=== PATIENT | female | born 1945 | race Caucasian/White ===

== ENCOUNTER 2025-01-31 06:26 | Inpatient (IN) ==
--- OUTSIDE RECORDS SUMMARY | 2025-01-31 06:32 | External Medical Summary | Summary of Care ---
Author Name Unknown Organization [facility] Address [address] [place] [address] Phone [phone] Care Team Providers Care General Counsel Name Role Phone Kia Goetz MD Primary Care Provider [phone] Reason for Visit * Reason Onset Date Comments Medication Refill 01/12/2025 Encounter Details Date Type Department Care Team (Late st Contact Info) Description 01/12/2025 Refill General Internal Medicine [facility] [place] [address] [facility] [place] [address] Kia Goetz MD [address] [place] [address] Adjustment disorder with mixed anxiety and depressed mood; Grief reaction; Neovascular glaucoma of both eyes, severe stage Allergies Active Allergy Reactions Criticality Noted Date Comments Mometasone Furoate 01/08/2022 Blisters sides of mouth Duloxetine Hcl Low 10/08/2021 Not allergic, just doesn't work Levofloxacin High 10/08/2021 Becomes deathly ill documented as of this encounter (statuses as of 01/23/2025) Medications ZyrTEC Allergy 10 MG Oral Capsule (Cetirizine HCl) Take 1 Capsule by mouth in the morning. Active Famotidine 20 MG Oral Tablet (Pepcid) Take 1 Tablet by mouth 2 times a day as needed for Heartburn. -uses 2/wk 021 Active Acetaminophen 500 MG Oral Tablet (Tylenol)Indicati ons:Headache, unspecified headache type Take by mouth 2 Tablets as needed in the morning AND 2 Tablets as needed at noon AND 2 Tablets as needed in the evening (headache). 100 Tablet 022 Active Nitroglycerin 0.4 MG Sublingual Tablet Sublingual (Nitrostat)Indica tions:Coronary artery disease involving holy cross coronary artery of holy cross heart without angina pectoris Place 1 Tablet under the tongue as needed for Pain, Chest. May repeat 3 times. If chest pain continues, call 911. 25 Tablet 023 Active Additional Information Patient not taking.Reported on 01/20/2025 Vitamin D-3 25 MCG (1000 UT) Oral CapsuleIndication s:Longitudinal ridging of nail,Vitamin D insufficiency 1 capsule daily--inc 02/10/2024 024 Active Metoprolol Succinate ER 25 MG Oral Tablet Extended Release 24 Hour (toPROL XL)Indications:Co ronary artery disease involving holy cross coronary artery of holy cross heart without angina pectoris TAKE 1 TABLET BY MOUTH EVERY DAY IN THE MORNING 90 Tablet 3 024 Active Atorvastatin Calcium 40 MG Oral Tablet (Lipitor)Indicati ons:Coronary artery disease involving holy cross coronary artery of holy cross heart without angina pectoris,Dyslipid emia, goal LDL below 70 TAKE 1 TABLET BY MOUTH EVERY DAY IN THE MORNING 90 Tablet 3 024 Active Dorzolamide HCl-Timolol Mal 2-0.5 % Ophthalmic Solution (Cosopt Ocumeter Plus) INSTILL 1 DROP INTO THE RIGHT EYE 2 TIMES PER DAY 025 Active Nicotine 21 MG/24HR Transdermal Patch 24 Hour (Nicoderm CQ)Indications:Sy mptomatic carotid artery narrowing without infarction, right,Tobacco use disorder,Coronary artery disease involving holy cross coronary artery of holy cross heart without angina pectoris,Hx of CABG Place 1 Patch over 24 hours topically on the skin in the morning. On upper body/upper arm, change once a day for 6 weeks.. 42 Patch 025 Active Ezetimibe 10 MG Oral Tablet (Zetia)Indication s:Coronary artery disease involving holy cross coronary artery of holy cross heart without angina pectoris,Dyslipid emia, goal LDL below 70 TAKE 1 TABLET BY MOUTH EVERY DAY IN THE MORNING 90 Tablet 3 025 Active Clopidogrel Bisulfate 75 MG Oral Tablet (pLAVix) Take 1 Tablet by mouth in the morning. 90 Tablet 5 025 Active LORazepam 0.5 MG Oral Tablet (Ativan)Indicatio ns:SIXTO (generalized anxiety disorder),Symptom atic carotid artery narrowing without infarction, right,S/P carotid endarterectomy TAKE 1/2 TAB BY MOUTH IN THE MORNING AND EVENING FOR ANXIETY 30 Tablet 025 Active Albuterol Sulfate HFA 108 (90 Base) MCG/ACT Inhalation Aerosol SolutionIndicatio ns:Neovascular glaucoma of both eyes, severe stage,COPD, group A, by GOLD 2017 classification ([facility]),Tobacco use disorder Inhale 2 Puffs by mouth every 4 hours as needed for Wheezing. 18 g 1 025 Active Aspirin 325 MG Oral TabletIndications :Coronary artery disease involving holy cross coronary artery of holy cross heart without angina pectoris,Hx of CABG,S/P carotid endarterectomy Take 1 Tablet by mouth in the morning. 1 Tablet 022 2024 Discontinued Butalbital-Acetam inophen 50-325 MG Oral TabletIndications :Lumbar degenerative disc disease,Chronic neck and back pain Take 1 Tablet by mouth daily as needed for Pain, Moderate or Pain, Severe (neck pain). 30 Tablet 024 2024 Discontinued Trelegy Ellipta 100-62.5-25 MCG/ACT Aerosol Powder Breath ActivatedIndicati ons:Tobacco use disorder,COPD, group A, by GOLD 2017 classification ([facility]),Abnormal lung sounds INHALE 1 PUFF BY MOUTH IN THE MORNING. -FROM 08/11/2023. 60 Each 5 024 2024 Discontinued(P atient preference/dis continuation) Nicotine 14 MG/24HR Transdermal Patch 24 Hour (Nicoderm CQ)Indications:Oc ular ischemic syndrome,Symptoma tic carotid artery narrowing without infarction, right,Tobacco use disorder,Coronary artery disease involving holy cross coronary artery of holy cross heart without angina pectoris,Hx of CABG Place 1 Patch over 24 hours topically on the skin in the morning. On upper body/outer arm, change once a day for two weeks.. 14 Patch 025 2024 Discontinued(P atient preference/dis continuation) Nicotine 7 MG/24HR Transdermal Patch 24 Hour (Nicoderm CQ)Indications:Sy mptomatic carotid artery narrowing without infarction, right,Tobacco use disorder,Coronary artery disease involving holy cross coronary artery of holy cross heart without angina pectoris,Hx of CABG Place 1 Patch over 24 hours topically on the skin in the morning. On upper body/outer arm, change once a day for two weeks.. 14 Patch 025 2024 Discontinued(P atient preference/dis continuation) Sertraline HCl 50 MG Oral Tablet (Zoloft)Indicatio ns:Adjustment disorder with mixed anxiety and depressed mood,Grief reaction,Neovascu lar glaucoma of both eyes, severe stage Half tablet daily for 8 days then 1 tablet daily with breakfast -st 12/19/2024 30 Tablet 2 025 2024 Discontinued(P atient preference/dis continuation) Hospital, Clinic, or Other Facility Administered Medication Ordered Dose Route Frequency Start Date End Date Status bevaCIZumab (Avastin) inj 1.25 mgIndications:Ocular ischemic syndrome,Retinal neovascularization of right eye 1.25 mg IZ PRN 12/06/2024 12/06/2025 Active ROPivacaine (Naropin) inj 1.5 mgIndications:Ocular ischemic syndrome,Retinal neovascularization of right eye 1.5 mg IJ PRN 12/06/2024 12/06/2025 Active documented as of this encounter (statuses as of 01/23/2025) Active Problems Problem Noted Date Diagnosed Date Idiopathic hypotension 01/21/2025 Neovascular glaucoma of both eyes, severe stage 12/19/2024 Ocular ischemic syndrome 12/16/2024 Symptomatic stenosis of both carotid arteries without infarction 08/11/2024 HTN, goal below 140/80 08/11/2024 Carotid artery aneurysm 05/19/2024 COPD, group A, by GOLD 2017 classification 12/30 Overview: Per COPD GOLD Classification Occlusion of left subclavian artery 01/08/2022 Overview (01/08/2022): All BP to be in RT arm Coronary artery disease invo lving holy cross coronary artery of holy cross heart without angina pectoris 10/08/2021 Hx of CABG 10/08/2021 Overview (10/08/2021): 2015 PVD (peripheral vascular disease) with claudicat ion 10/08/2021 History of right-sided carotid endarterectomy Overview (10/08/2021): Rt 2016 Tobacco use disorder 10/08/2021 Lumbar degenerative disc disease 10/08/2021 History of lumbar laminectomy 10/08/2021 Overview (10/08/2021): 12/2014 in [place] Dyslipidemia, goal LDL below 70 10/08/2021 Seasonal allergic rhinitis due to pollen 021 Adjustment disorder with mixed anxiety and depre ssed mood 10/08/2021 Prediabetes 10/08/2021 SIXTO (generalized anxiety disorder) 10/08/2021 Ocular migraine 10/08/2021 documented as of this encounter (statuses as of 01/23/2025) Resolved Problems Problem Noted Date Diagnosed Date Resolved Date Caregiver stress 06/22/2024 12/13/2024 Symptomatic stenosis of righ t carotid artery without infarction 05/19/2024 01/21/2025 Bilateral carotid artery stenosis 10/22/2021 08/11/2023 COPD, severity to be determined 10/08/2021 01/01/2023 Overview: Per COPD GOLD Classification documented as of this encounter (statuses as of 01/23/2025) Immunizations Name Administration Dates Next Due COVID-19 mRNA, LNP-s, No Pre serve, 2-Dose Series (Moderna) 01/23/2021,12/28/2020 Pneumococcal Conjugate Vacci ne, 20-valent ([id number]) 09/02/2022 Pneumococcal Polysaccharide PPV23 (Pneumovax) 09/01/2017 Seasonal Influenza, High Dos e, Trivalent, PF, IM (Fluzone HD) 09/01/2017 Seasonal Influenza, Quadriva lent Hd (Fluzone Hd) 08/11/2023,09/02/2022,10/08/2021 documented as of this encounter Social History Tobacco Use Types Packs/Day Years Used Date Smoking Tobacco: Every Day Cigarettes 2 58 Smokeless Tobacco: Former Comments:12/16/24 smokes 10 cigs a day declined pamphlet Alcohol Use Standard Drinks/Week Comments Never 0 (1 standard drink = 0.6 oz pur e alcohol) PHQ-2 Answer Date Recorded PHQ Adult Total Score 0 08/11/2023 Personal Safety Answer Date Recorded Do you feel unsafe or have concerns for your saf ety? No 01/20/2025 Do you have concerns for you r family's safety? (Household - for ages 0-17 years) Not on file 01/20/2025 Utilities Answer Date Recorded Do you have trouble paying y our heating, water, or electric bill? No 01/20/2025 Is your family able to pay t he heat, water, or electric bill? (Household - for ages 0-17 years) Not on file 01/20/2025 Does your family have access to good internet? (Household - for ages 0-17 years) Not on file 01/20/2025 Transportation Needs Answer Date Record ed Do you have trouble getting a ride to medical visits or work? (Adult - for ages 18 years and over) Not on file 01/20/2025 Does your family have a hard time getting a ride to doctors visits? (Household - for ages 0-17 years) Not on file 01/20/2025 Has lack of transportation k ept you from medical appointments, meetings, work, or from getting things needed for daily living? Check all that apply. No 01/20/2025 Do you (or your family) have trouble finding or paying for a ride (transportation)? (Household - for ages 0-17 years) Not on file 01/20/2025 Housing Stability Answer Date Recorded Do you currently live in a s helter or have no steady place to sleep at night? (Adult - for ages 18 years and over) Not on file 01/20/2025 Do you think you are at risk of becoming homeless? (Adult - for ages 18 years and over) Not on file 01/20/2025 Does your family worry about paying for your home or becoming homeless? (Household - for ages 0-17 years) Not on file 0 01/20/2025 Are you homeless or worried that you might be in the future? No 01/20/2025 Are you (or your family) rene eless or worried that you might be in the future? (Household - for ages 0-17 years) Not on file Food Insecurity Answer Date Recorded Worried About Running Out of Food in the Last Ye ar Not on file 01/20/2025 Ran Out of Food in the Last Year Not on file 01/20/2025 Do you need food for this week? No 01/20/2025 Comments No Sex and Gender Information Value Date Recorded Sex Assigned at Not on file Legal Sex Female 1:53 PM EST Gender Identity Not on file Sexual Orientation Not on file documented as of this encounter Miscellaneous Notes * Telephone Encounter - Kia Goetz MD - 01/12/2025 1:57 PM EDTRefused Prescriptions: Disp Refills Sertraline HCl 50 MG Oral Tablet (Zoloft) 30 Tab*2 Sig: Half tablet daily for 8 days then 1 tablet daily with breakfast -12/19/2024 Refused By: KIA GOETZ Reason for Refusal: Other (comment below) * Telephone Encounter - Marilu Barry CMA - 01/12/2025 1:54 PM EDTPending Prescriptions: Disp Refills Sertraline HCl 50 MG Oral Tablet (Zoloft) 30 Tab*2 Sig: Half tablet daily for 8 days then 1 tablet daily with breakfast -12/19/2024 * Telephone Encounter - Marilu Barry CMA - 01/12/2025 1:54 PM EDT Did you pend patient's preferred pharmacy and medication before forwarding?yes Pharmacy: [id number] [address] [place] [address] Pending Prescriptions: Disp Refills Sertraline HCl 50 MG Oral Tablet (Zoloft) 30 Tab*2 Sig: Half tablet daily for 8 days then 1 tablet daily with breakfast -st 12/19/2024 Last Visit: 12/13/2024 (in office), Visit date not found (telemedicine) Next Visit: 02/22/2025 If no future appointments scheduled, and last appointment is greater than a year ago, please schedule patient for a follow-up appointment Last date the medication was ordered: 12/19/24 Is this request for a controlled substance?No Urine Drug Screen:No results found for this or any previous visit. Patient Phone Numbers Labs: Lab Results Component Value Date/Time CREAT 0.8 08/12/2024 08:58 AM CREAT 0.91 06/20/2021 12:00 AM POTASSIUM 4.3 08/12/2024 08:58 AM POTASSIUM 5.0 06/20/2021 12:00 AM TSH 1.78 06/20/2021 12:00 AM LDL 49 08/12/2024 08:58 AM LDLCALC 58 06/20/2021 12:00 AM ALT 23 08/12/2024 08:58 AM HGBA1C 5.8 (H) 08/12/2024 08:58 AM HGBA1C 5.9 (H) 06/20/2021 12:00 AM * Telephone Encounter - Louann Bustamante OSA - 01/12/2025 1:33 PM EDT PHARMACY REQUESTING 90 DAY SUPPLY Pending Prescriptions: Disp Refills Sertraline HCl 50 MG Oral Tablet (Zoloft) 30 Tab*2 Sig: Half tablet daily for 8 days then 1 tablet daily with breakfast -st 12/19/2024 Last Visit: 12/13/2024 (in office), Visit date not found (telemedicine) Next Visit: 02/22/2025 Last date the medication was ordered: 12/19/2024 Patient Active Problem List Diagnosis Coronary artery disease involving holy cross coronary artery of holy cross heart without angina pectoris Hx of CABG PVD (peripheral vascular disease) with claudication (HCC) History of right-sided carotid endarterectomy Tobacco use disorder Lumbar degenerative disc disease History of lumbar laminectomy Dyslipidemia, goal LDL below 70 Seasonal allergic rhinitis due to pollen Adjustment disorder with mixed anxiety and depressed mood Prediabetes SIXTO (generalized anxiety disorder) Ocular migraine Occlusion of left subclavian artery COPD, group A, by GOLD 2017 classification (HCC) Symptomatic stenosis of right carotid artery without infarction Carotid artery aneurysm (HCC) Stenosis of extracranial carotid artery, right HTN, goal below 140/80 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, severe stage Labs: Lab Results Component Value Date/Time CREATININE - [facility] 0.8 08/12/2024 08:58 AM CREATININE - [facility] 0.91 06/20/2021 12:00 AM CREATININE, RANDOM URINE - [facility] 136 08/11/2023 12:50 PM Lab Results Component Value Date/Time POTASSIUM - [facility] 4.3 08/12/2024 08:58 AM POTASSIUM - [facility] 5.0 06/20/2021 12:00 AM Lab Results Component Value Date/Time TSH - [facility]IDE [facility] 1.78 06/20/2021 12:00 AM Lab Results Component Value Date/Time LDL (CALCULATED)-[facility] 58 06/20/2021 12:00 AM LDL CHOLESTEROL (CALCULATED) - [facility] 49 08/12/2024 08:58 AM LDL CHOLESTEROL (CALCULATED) - [facility] 66 08/11/2023 12:45 PM LDL CHOLESTEROL (DIRECT MEASURE) - [facility] 76 02/10/2024 12:29 PM LDL CHOLESTEROL (DIRECT MEASURE) - [facility] 90 03/06/2023 09:57 AM Lab Results Component Value Date/Time ALT - [facility] 23 08/12/2024 08:58 AM Hemoglobin AIC Results: Lab Results Component Value Date/Time HEMOGLOBIN A1C - [facility] 5.8 (H) 08/12/2024 08:58 AM HEMOGLOBIN A1C - [facility] 6.2 (H) 02/10/2024 12:29 PM HEMOGLOBIN A1C - [facility] 6.3 (H) 08/11/2023 12:45 PM documented in this encounter Plan of Treatment Upcoming Encounters Date Type Department Care Team (Late st Contact Info) Description 01/28/2025 8:30 AM EDT Imaging Vascular Lab, [facility] II 2nd Floor, [place] [address] [place] [phone] 02/09/2025 1:50 PM EDT Office Visit Vascular Surgery, [facility] [address] [place] [phone] Servando Rees MD [address] [place] [facility] [place] [address] 02/16/2025 2:15 PM EDT Office Visit Ophthalmology, [facility] [address] [place] [phone] Ryland Harrison DO [address] [place] [phone] 02/22/2025 1:00 PM EDT Office Visit General Internal Medicine [facility] [place] [address] [facility] [place] [address] Kia Goetz MD [address] [place] [address] Health Maintenance Due Date Last Done Comments DISCUSS TOBACCO CESSATION (REFER TO SMARTSET #[id number]) 1945 Depression Screening 1959 Alpha-1 Antitrypsin 1965 Hepatitis C Screening 1965 DTap/Tdap Vaccines (1 - Tdap) 1966 Zoster Vaccines (1 of 2) 1966 Lung Cancer Screening 1997 Adult Wellness Visit 2013 DXA Scan 09/04/2022 09/04/2015 COVID-19 Vaccine ( season) 2024 08/20/2021, 01/23/2021, 12/28/2020 Influenza Vaccine (FLU shot) (Season Ended) 2025 08/11/2023, 09/02/2022, 10/08/2021, Additional history exists HbA1c 08/12/2025 08/12/2024, 04/2 12/2023, 08/11/2023, Additional history exists O2 ASSESSMENT COMPLETED IN PAST YEAR FOR COPD 01/20/2026 01/20/2025 GFR 01/22/2026 01/22/2025, 04/0 01/2025, 01/20/2025, Additional history exists Albumin/Creatinine Ratio 08/11/2026 08/11/2023 Pneumococcal Vaccine: 50+ Years Completed 09/02/2022, 09/01/2017 HPV (Gardasil) Vaccine Aged Out No lo nger eligible based on patient's age to complete this topic Hepatitis B Vaccine Aged Out No longe r eligible based on patient's age to complete this topic MENINGOCOCCAL (MENACTRA/MENVEO) Aged Out No longer eligible based on patient's age to complete this topic Meningitis B Vaccine (Bexsero/Trumemba) Aged Out No longer eligible based on patient's age to complete this topic documented as of this encounter Medical Devices Implanted Type Area Business Info Consultant Device Identifier Shelf Expiration Date Model / Serial / Lot Patch Xenosure [id number] - [id number] - [id number] Implanted:Qty: 1 on 01/20/2025 by Servando Rees MD at OR [facility] [place] Left: Carotid [employer] [id number] 02/14/2030 E0.8P8 / [id number] / [id number] Graft Stent Balloon Expandable Endoprosthesis , 7 Mm 39 Mm 6 Fr 135 Cm Cath Heparin - [id number] Implanted:Qty: 1 on 01/20/2025 by Servando Rees MD at OR [facility] [place] Left: Carotid [employer] [id number] 05/08/2027 [id number] / [id number] / [id number] Graft Stent Balloon Expandable Endoprosthesis , 7 Mm 39 Mm 6 Fr 135 Cm Cath Heparin - [id number] Implanted:Qty: 1 on 01/20/2025 by Servando Rees MD at OR [facility] [place] Left: Carotid [employer] [id number] 12/11/2026 [id number] / [id number] / [id number] Graft Stent Balloon Expandable Endoprosthesis , 7 Mm 29 Mm 6 Fr 135 Cm Cath Heparin - [id number] Implanted:Qty: 1 on 01/20/2025 by Servando Rees MD at OR [facility] [place] Left: Carotid [employer] [id number] 07/16/2027 [id number] / [id number] / [id number] documented as of this encounter Visit Diagnoses Diagnosis Adjustment disorder with mixed anxiety and depressed mood Grief reaction Adjustment disorder with depressed mood Neovascular glaucoma of both eyes, severe stage documented in this encounter Advance Directives * Full Code (Latest Code Status on File) Date Activated Date Inactivated Comments 01/20/2025 10:42 AM 01/22/2025 1:46 PM This order re flects the patients wishes and were consensually agreed upon. Question Answer Comments Discussion of Advance Directives occurred with: Patient Care Teams General Counsel Relationship Specialty Start Date End Date Kia Gotez MD [address] [place] [address] PCP - General Internal Medicine 10/08/21 documented as of this encounter
--- OUTSIDE RECORDS SUMMARY | 2025-01-31 06:32 | External Medical Summary | Summary of Care ---
Author Name Unknown Organization [facility] Address [address] [place] [address] Phone [phone] Care Team Providers Care Bilingual Teacher Name Role Phone Kia Goetz MD Primary Care Provider [phone] Reason for Referral * Evaluate & Treat - Unlimited Visits (Within 10 days (routine)) - Authorized Specialty Diagnoses / Procedures Referred By Contact Referred To Contact Cardiovascular Medicine / Cardiology Diagnoses Coronary artery disease involving [place] coronary artery of [place] heart without angina pectoris Gabriel Soto MD [address] [place] [address] Phone: tel: fax: CARDIOLOGY [address] [address] Referral ID Status Reason Start Date Expiration Date Visits Requested Visits Authorized [id number] Authorized Specialty Services Required 01/21/[phone] Question Answer Referral Priority Within 10 days (routine) Where should this appointment be scheduled? [facility] - Cardiology, [facility] For which of the following conditions are you referring? Known CAD/CABG/Stent Comments Elevated troponin post L carotid endarterectomy. Seen by cardiology here, recommended follow up in [place], and repeating echo. Discharge Order Reason for Visit * Auth/Cert Specialty Diagnoses / Procedures Referred By Contac t Referred To Contact Diagnoses 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 Symptomatic stenosis of right carotid artery without infarction [I65.21] Ocular ischemic syndrome [H35.82] Procedures BYPASS GRFT OTHER-CAROTID THROMBOENDARECTOMY W/PATCH,NECK INCISION IR STENT PLACEMENT THORACIC CAROTID/INNOMINATE RETROGRADE CAROTID ENDARTERECTOMY CAROTID STENT WITH OPEN EXPOSURE WITH RADIOLOGIC SUPERVISION AND INTERPRETATION Servando Rees MD [address] [place] [address] Phone: tel: fax: [place] [facility] [place] [place] [address] [place] [address] Phone: tel: Referral ID Status Reason Start Date Expiration Date Visits Re quested Visits Authorized [id number] Encounter Details Date Type Department Care Team (Latest Contact Info) Description 01/20/2025 5:41 AM EDT - 01/22/2025 9:46 AM EDT Hospital Encounter [facility] 8, [facility] 8th Floor [address] [place] [address] Servando Rees MD [address] [place] [address] Various: EKG,KRAVS Discharge Disposition: Home - Self Care Allergies Active Allergy Reactions Criticality Noted Date Comments Mometasone Furoate 01/08/2022 Blisters sides of mouth Duloxetine Hcl Low 10/08/2021 Not allergic, just doesn't work Levofloxacin High 10/08/2021 Becomes deathly ill documented as of this encounter (statuses as of 01/22/2025) Medications ZyrTEC Allergy 10 MG Oral Capsule [...] Tablet Sublingual (Nitrostat)Indica tions:Coronary artery disease involving fed[place] coronary artery of fed[place] heart without angina pectoris Place 1 Tablet [...] Hour (toPROL XL)Indications:Co ronary artery disease involving fed[place] coronary artery of [place] heart without angina pectoris TAKE 1 TABLET BY MOUTH EVERY DAY IN THE MORNING 90 Tablet 3 024 Active Atorvastatin Calcium 40 MG Oral Tablet (Lipitor)Indicati ons:Coronary artery disease involving [place] coronary artery of [place] heart without angina pectoris,Dyslipid emia, goal LDL [...] infarction, right,Tobacco use disorder,Coronary artery disease involving fed[place] coronary artery of fed[place] heart without angina pectoris,Hx of CABG Place 1 Patch over 24 hours topically on the skin in the morning. On upper body/upper arm, change once a day for 6 weeks.. 42 Patch 025 Active Ezetimibe 10 MG Oral Tablet (Zetia)Indication s:Coronary artery disease involving fed[place] coronary artery of [place] heart without angina pectoris,Dyslipid emia, goal LDL [...] stage,COPD, group A, by GOLD 2017 classification ([facility]),Tobacco use disorder Inhale 2 Puffs by mouth every 4 hours as needed for Wheezing. 18 g 1 025 Active Aspirin 81 MG Oral Tablet Delayed Release Take 1 Tablet by mouth in the morning. Active oxyCODONE HCl 5 MG Oral Tablet (Oxy IR) Take 1 Tablet by mouth every 8 hours as needed for severe pain. 3 Tablet 01/23/20 25 9:40 AM EDT 025 Active Aspirin 325 MG Oral TabletIndications :Coronary artery disease involving fed[place] coronary artery of fed[place] heart without angina pectoris,Hx of CABG,S/P carotid endarterectomy Take 1 Tablet by mouth in the morning. 1 Tablet 022 2024 Discontinued Trelegy Ellipta 100-62.5-25 MCG/ACT Aerosol Powder Breath ActivatedIndicati ons:Tobacco use disorder,COPD, group A, by GOLD 2017 classification ([facility]),Abnormal lung sounds INHALE 1 PUFF BY MOUTH IN THE MORNING. -FROM 08/11/2023. 60 Each 5 024 2024 Discontinued(P atient preference/dis continuation) Nicotine 14 MG/24HR Transdermal Patch 24 Hour (Nicoderm CQ)Indications:Oc ular ischemic syndrome,Symptoma tic carotid artery narrowing without infarction, right,Tobacco use disorder,Coronary artery disease involving fed[place] coronary artery of fed[place] heart without angina pectoris,Hx of CABG Place 1 Patch over 24 hours topically on the skin in the morning. On upper body/outer arm, change once a day for two weeks.. 14 Patch 025 2024 Discontinued(P atient preference/dis continuation) Nicotine 7 MG/24HR Transdermal Patch 24 Hour (Nicoderm CQ)Indications:Sy mptomatic carotid artery narrowing without infarction, right,Tobacco use disorder,Coronary artery disease involving fed[place] coronary artery of fed[place] heart without angina pectoris,Hx of CABG Place [...] 2 025 2024 Discontinued(P atient preference/dis continuation) documented as of this encounter (statuses as of 01/22/2025) Active Problems Problem Noted Date Diagnosed Date [...] RT arm Coronary artery disease invo lving fed[place] coronary artery of fed[place] heart without angina pectoris 10/08/2021 Hx of CABG 10/08/2021 Overview (10/08/2021): 2014 PVD (peripheral vascular disease) with claudicat ion [...] as of this encounter (statuses as of 01/22/2025) Resolved Problems Problem Noted Date Diagnosed Date Resolved Date Caregiver stress 06/22/2024 12/13/2024 Symptomatic stenosis of righ t carotid artery without infarction 05/19/2024 01/21/2025 Bilateral carotid artery stenosis 10/22/2021 08/11/2023 COPD, severity to be determined 10/08/2021 01/01/2023 Overview: Per COPD GOLD Classification documented as of this encounter (statuses as of 01/22/2025) Immunizations Name Administration Dates Next Due COVID-19 mRNA, LNP-s, No Pre serve, 2-Dose Series (Moderna) 01/23/2021,12/28/2020 Pneumococcal Conjugate Vacci ne, 20-valent ([id number]) 09/02/2022 Pneumococcal Polysaccharide PPV23 (Pneumovax) 09/01/2017 Seasonal [...] on file documented as of this encounter Last Filed Vital Signs Vital Sign Reading Time Taken Comments Blood Pressure 102/64 01/22/2025 7:44 AM EDT Pulse 91 01/22/2025 7:44 AM EDT Temperature 36.4 °C (97.6 °F) 01/22/2025 7:44 AM ED T Respiratory Rate 17 01/22/2025 7:44 AM EDT Oxygen Saturation 93% 01/22/2025 7:44 AM EDT Inhaled Oxygen Concentration - - Weight 59.7 kg (131 lb 11.2 oz) 01/20/2025 5:58 AM EDT Height 152.4 cm (5') 01/20/2025 5:58 AM EDT Body Mass Index 25.72 01/20/2025 5:58 AM EDT documented in this encounter Functional Status * Are you deaf or do you have serious difficulty hearing? Answer Date of Assessment Author No 01/20/2025 2:05 PM EDT Jesus Pena RN * Are you blind or do you have serious difficulty seeing, even when wearing glasses? Answer Date of Assessment Author No 01/20/2025 2:05 PM EDT Jesus Pena RN * Do you have serious difficulty walking or climbing stairs? (5 years old or older) Answer Date of Assessment Author No 01/20/2025 2:05 PM EDT Jesus Pena RN * Do you have difficulty dressing or bathing? (5 years old or older) Answer Date of Assessment Author No 01/20/2025 2:05 PM EDT Jesus Pena RN * Because of a physical, mental, or emotional condition, do you have difficulty doing errands alone such as visiting a doctor’s office or shopping? (15 years old or older) Answer Date of Assessment Author No 01/20/2025 2:05 PM EDT Jesus Pena RN documented as of this encounter Mental Status * Because of a physical, mental, or emotional condition, do you have serious difficulty concentrating, remembering, or making decisions? (5 years old or older) Answer Entry Date Author No 01/20/2025 2:05 PM EDT Jesus Pena RN documented in this encounter Discharge Summaries * Royce Sanchez DO - 01/22/2025 8:26 AM EDT [facility] [address] Admission Date: 01/20/2025 Discharge Date: 01/22/2025 DISCHARGE DIAGNOSES: Active Hospital Problems Diagnosis *Principal Diagnosis - Symptomatic stenosis of both carotid arteries without infarction Idiopathic hypotension Ocular ischemic syndrome Coronary artery disease involving [place] coronary artery of fed[place] heart without angina pectoris Resolved Hospital Problems Diagnosis Date Resolved Symptomatic stenosis of right carotid artery without infarction 01/21/2025 Other Significant Diagnoses: none CONDITION ON DISCHARGE: stable Cognition: normal DISPOSITION ON DISCHARGE: home FOLLOW-UP: Future Appointments Appt Date/Time Provider Department 01/28/2025 8:30 AM VASC US3 [facility] 02/09/2025 1:50 PM Servando Rees MD Vascular Surgery, [facility] 02/16/2025 2:15 PM Rico Harrison DO Ophthalmology, [facility] 02/22/2025 1:00 PM Kia Goetz MD General Internal Medicine [facility] Outpatient testing already scheduled: imaging Outpatient testing that needs to be arranged: none Inpatient test results pending: none MEDICATIONS ON DISCHARGE: MEDICATION UPDATES AT DISCHARGE START taking these medications INSTRUCTIONS oxyCODONE 5 MG immediate release tablet Commonly known as: Oxy IR Take 1 Tablet by mouth every 8 hours as needed for severe pain. CHANGE how you take these medications INSTRUCTIONS aspirin enteric coated 81 MG Tbec What changed: Another medication with the same name was removed. Continue taking this medication, and follow the directions you see here. Take 1 Tablet by mouth in the morning. CONTINUE taking these medications INSTRUCTIONS Acetaminophen 500 MG Tablet Commonly known as: Tylenol Take by mouth 2 Tablets as needed in the morning AND 2 Tablets as needed at noon AND 2 Tablets as needed in the evening (headache). albuterol HFA 108 (90 BASE) MCG/ACT inhaler Inhale 2 Puffs by mouth every 4 hours as needed for Wheezing. atorvaSTATin 40 MG Tablet Commonly known as: Lipitor TAKE 1 TABLET BY MOUTH EVERY DAY IN THE MORNING clopidogrel 75 MG Tablet Commonly known as: pLAVix Take 1 Tablet by mouth in the morning. dorzolamide-timolol 2.23-0.68% ophthalmic solution Commonly known as: Cosopt Ocumeter Plus INSTILL 1 DROP INTO THE RIGHT EYE 2 TIMES PER DAY Ezetimibe 10 MG Tablet Commonly known as: Zetia TAKE 1 TABLET BY MOUTH EVERY DAY IN THE MORNING Famotidine 20 MG Tablet Commonly known as: Pepcid Take 1 Tablet by mouth 2 times a day as needed for Heartburn. -uses 2/wk LORAzepam 0.5 MG Tablet Commonly known as: Ativan TAKE 1/2 TAB BY MOUTH IN THE MORNING AND EVENING FOR ANXIETY metoprolol succinate XL 25 MG Tb24 Commonly known as: toPROL XL TAKE 1 TABLET BY MOUTH EVERY DAY IN THE MORNING Nicotine 21 MG/24HR Patch Commonly known as: Nicoderm CQ Place 1 Patch over 24 hours topically on the skin in the morning. On upper body/upper arm, change once a day for 6 weeks.. Vitamin D-3 25 MCG (1000 UT) Capsule 1 capsule daily--inc 02/10/2024 ZyrTEC Allergy 10 MG Capsule Generic drug: Cetirizine HCl Take 1 Capsule by mouth in the morning. CONTINUE taking these medications but follow up with your Primary Care Physician (PCP). INSTRUCTIONS Nitroglycerin 0.4 MG Subl Commonly known as: Nitrostat Place 1 Tablet under the tongue as needed for Pain, Chest. May repeat 3 times. If chest pain continues, call 911. ALLERGIES: Levaquin [levofloxacin], Asmanex (120 metered doses) [mometasone furoate], and Cymbalta [duloxetine hcl] INSTRUCTIONS: Activity: No strenuous activity for 1 weeks Diet: heart healthy diet Code Status: Full Code Indwelling devices: none ADMISSION HISTORY & PHYSICAL EXAM (focused): PRESENTING PROBLEM: Severe disease L CCA with marked disease left bifurcation Severe R CCA disease with dense plaque and aneurysmal degeneration of her prior CEA with recurrent symptomatic right eye ischemia. Right eye vision is now reduced HISTORY OF PRESENT ILLNESS: Clotilde Pope is a 79 year old, female that presents to pre-op today for Left carotid endarterectomy with left CCA intrathoracic stent with neuromonitoring with Dr. Rees. Does not report any new issues or complaints since the last clinic visit. Also denies fevers, chills, night sweats, nausea, vomiting, diarrhea, chest pain, and shortness of breath. Does the patient take Coumadin (warfarin)? no Does the patient take any other anticoagulants? no Last Clinic Visit (12/16/24) Date of Service: 12/16/2024 3:41 PM Clotilde Pope is a 79 year old female. Patient being seen in consultation at the request of Kia Goetz MD Chief Complaint: F/U, complex carotid disease Also followed for PAD Since last visit patient's has (5 wks ago). 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 "Waxy" vision in right prompted evaluation by [facility] who diagnosed ischemic retina approximately two weeks ago. Dr Goetz then obtained CTA head and neck revealing high grade right CCA dense plaque stenosis with aneurysmal degeneration of right CEA site. 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 CORONARY DISEASE S/p CABG x 3 (OM, RCA, MORGAN) 04/2015 at [facility] in [place]. No symptoms now. CABG did have MORGAN to LAD but target and graft poor and did not work at time of initial surgery so left with OM and RCA as targets for CABG only. Her had CABG in [place] in 2021 (he has diabetes and never recovered his strength after the CABG) PAD She has pain in bilateral anterior thighs with ambulation L=R She can walk all over [employer] as long as she pushes the cart Unchanged pain in legs since seen in 11/2021 SMOKING Smoking essentially 1 ppd, trying to cut back. She tried acccupuncture and Chantix in the past Patches don't work for her. FAMILY HISTORY: Family history is noncontributory. COMPLETE REVIEW OF SYSTEMS: Cardiovascular: Negative for chest pain, shortness of breath, palpitations, angina or VA Neurological: Negative for stroke, TIA, amaurosis fugax All other systems negative except for those noted above and in the history of present illness (HPI). GENERAL MULTI-SYSTEM PHYSICAL EXAM: VITAL SIGNS: BP 114/62 (BP Site: Right Arm, BP Position: Sitting, BP Cuff Size: Regular) | Pulse 88 | Temp 36.3 °C (97.3 °F) (Temporal Artery) | Wt 60.3 kg (132 lb 14.4 oz) | BMI 25.96 kg/m² | BSA 1.6 m² GENERAL MULTI-SYSTEM PHYSICAL EXAM:ADDITIONAL VS: pulse regular. GENERAL: Normal grooming habits, no acute distress and appears stated age. NECK: No masses Right neck incision scar. RESPIRATORY: respiratory effort normal and breath sounds normal. CARDIOVASCULAR: RRR, systolic murmur, no BLE edema GASTROINTESTINAL: no tenderness, protuberant and abdominal aorta not palpable. LYMPHATIC: cervical lymph nodes normal SKIN: no ulcers, no rash, no induration, and no dependent rubor. PSYCHIATRIC: orientation to time, place and person normal and recent and remote memory normal. EYES: conjunctivae normal, eye lids normal, pupils normal and irises normal. NEUROLOGIC: Motor function intact and Sensory exam intact PULSE SCALE: Carotid Right:----Bruit: Yes Left:----Bruit: Yes Radial Right: 3 Left: 0 Femoral Right: 0 Left: 0 Popliteal Right: 0 Left: 0 Dorsalis Pedis Right: 0 Left: 0 Posterior Tibial Right: 0 Left: 0 PULSE SCALE: 4=Aneurysmal; 3=Normal; 2=Diminished; 1=Barely Palpable; 0=Absent HOSPITAL COURSE (focused): Clotilde Pope is a 79 year old female who underwent the below mentioned procedure. She did well post-operatively overall. She tolerated a diet and labs were reassuring. However, she did have some hypotension on POD1 and mildly elevated troponins prompting a cardiology consult. She continued to do well the next day, her labs were stable, and she remained hemodynamically and neurologically stable. Therefore, she was discharged home on POD2 (01/22/2025) Operations & Procedures: left carotid endarterectomy with pericardial patch angioplasty. Left common carotid retrograde VBX stent placement x3. Neuromonitoring with EEG Complications: none significant SIGNIFICANT RESULTS: Vital Signs (last recorded): Most Recent Systolic BP: 102 mmHg (01/22/25743) Most Recent Diastolic BP: 64 mmHg (01/22/25743) Pulse: 91 (01/22/25743) Resp: 17 (01/22/25743) Most Recent Temperature: 36.44 C (01/22/25743) Weight: 59.7 kg (131 lb 11.2 oz) (01/20/25557) SpO2: 93 % (01/22/25743) Labs: CHEMISTRY: BUN, Creatinine, GFR Estimated, Sodium, Potassium, Chloride, Carbon Dioxide, Glucose, Calcium (see below for most recent value): Lab Results Component Value Date/Time BUN 10 01/22/2025 05:12 AM CREAT 0.8 01/22/2025 05:12 AM CREAT 0.91 06/20/2021 12:00 AM NA 140 01/22/2025 05:12 AM POTASSIUM 4.3 01/22/2025 05:12 AM POTASSIUM 5.0 06/20/2021 12:00 AM CL 104 01/22/2025 05:12 AM CO2 25 01/22/2025 05:12 AM CA 8.2 (L) 01/22/2025 05:12 AM BLOOD COUNT: WBC, Hgb, Platelets (see below for most recent value): Lab Results Component Value Date/Time WBC 8.95 01/22/2025 05:12 AM HGB 9.5 (L) 01/22/2025 05:12 AM HGB 14.2 06/20/2021 12:00 AM PLT 182 01/22/2025 05:12 AM Imaging (focused): VASC PROCEDURE IN VASCULAR ANGIO SUITE Final Result This procedure will not be read by a Radiologist. Please see operative note. XR CHEST 1 VIEW Final Result EXAM XR CHEST 1 VIEW - 01/20/2025 10:43 am HISTORY SOB COMPARISON 08/11/2023 TECHNIQUE Frontal view of the chest. FINDINGS Support apparatus: Left paratracheal stent. Sternal wires. Mediastinal clips. Overlying wires. Bronchovascular crowding. No specific consolidations, pleural effusion or pneumothorax. Cardiomediastinal silhouette and pulmonary vasculature within normal limits. IMPRESSION IMPRESSION Hypoventilatory changes versus interstitial edema. CONSULTS ORDERED: CARE MANAGEMENT CONSULT IP CARDIOLOGY CONSULT IP REFERRING PHYSICIAN: REF: RICO HARRISON PRIMARY CARE PROVIDER: PCP: Kia Goetz MD [address] [place] [address] / [facility] [id number] (office) [phone] (fax) Note: To contact a physician responsible for this patient’s hospital care, please call [facility] [phone]. Cosigned by Nura Olmos MD at 01/22/2025 9:15 AM EDT documented in this encounter Discharge Instructions * Discharge Instr - AVS* Saad Valdovinos MD - 01/21/2025 12:53 PM EDT Discharge Date: 01/22/25 You may call Servando Rees MD of the department of Vascular Surgery at the [facility] [place] at [phone] option 2. After business hours, you may call with emergency questions to [phone] ask that the on-call Vascular Surgery provider be paged. The information below provides you with the instructions and the list of medications you need to betaking following discharge from the hospital. If you have any questions, please ask before leaving.Please carry this letter with you when you see your doctor in the clinic. If you have questions, you can reach us at the numbers above. Brief summary of your inpatient care: Left carotid endarterectomy and placement of common carotid artery stent Your primary diagnosis at discharge was left internal carotid stenosis and common carotid artery stenosis. Your doctors during this hospitalization included: Servando Rees MD Inpatient test results pending: None Complications: none significant Advance Directive Documented: Advance Directive Does the Patient have an Advance Directive? No Your follow-up appointments with your Vascular Surgeon should be scheduled for 1 month following your discharge. If you have not been contacted within 2 weeks with your appt times, please call the numbers listed above for assistance. Follow up with Vascular Surgery in 1 month, with a carotid duplex. Follow up with Cardiology in 1 month, will get an echo of your heart. SUPPLEMENTAL INSTRUCTIONS: You may experience mild swelling, numbness along the side of your neck or earlobe, stiff neck, or discomfort along your neck incision, and this would be considered normal post-op changes. Should significant swelling, incision separation, increased drainage/bleeding, increased pain occur along the incision line, fever greater than 101 degrees please call your vascular surgery office to discuss with an advanced practitioner or physician driver education road instructor. Should you develop a moderate or severe headache, one-sided weakness/numbness/paralysis/inability to speak/temporary blindness, or seizures occur, [id number] or proceed to local ER. If you leave with any bandages, remove those tomorrow. You may take a shower and wash over the incision with soap and water. Do not soak the incision (i.e. take a bath) until the incision is completely healed. Do not drive a car until you are walking normally, can turn your head easily (usually 7 to 14 days)and have stopped taking narcotic pain medicine. Any invasive procedure, such as dental work, endoscopy, colonoscopy, cystoscopy, etc. should be avoided in the first 3 months following surgery. If an urgent procedure is required, you should receive prophylactic antibiotics to prevent a vascular graft infection. [employer] endocarditis prophylaxis regimen may be used for this purpose. Do not drive a car until you are walking normally and pain free (usually 5 to 7 days) and have stopped taking narcotic pain medicine. If you leave with any bandages, remove those tomorrow. You may take a shower and wash over the incision with soap and water. Do not soak the incision (i.e. take a bath) until the incision is completely healed. Any invasive procedure, such as dental work, endoscopy, colonoscopy, cystoscopy, etc. should be avoided in the first 3 months following surgery. If an urgent procedure is required, you should receive prophylactic antibiotics to prevent arterialgraft infection. [employer] endocarditis prophylaxis regimen may be used for this purpose. You may experience mild swelling, numbness along the side of your neck or earlobe, stiff neck, or discomfort along your neck incision, and this would be considered normal post-op changes. Should significant swelling, incision separation, increased drainage/bleeding, increased pain occur along the incision line, fever >101 degrees please call [phone] to discuss with an advanced practitioner or physician driver education road instructor. Should you develop severe headache, one-sided weakness/numbness/paralysis/inability to speak/temporary blindness, or seizures occur, call 911 or proceed to local ER. Medication Instructions: You need to take your aspirin 81 mg daily and your plavix 75 mg daily. Special Instructions: For routine questions, your [facility] Vascular Surgery Team prefers the use of Rico. Rico is an online internet tool to help you meet your health care needs quickly by providing a secure, confidential way to view your health records and communicate with your [facility] Vascular SurgeryTeam. To sign up for Rico go to [email or web address], "Click" [place] Now on the right side of the screen and complete the user registration information. HOW TO QUIT SMOKING Smoking is one of the hardest habits to break. About half of all those who have ever smoked have been able to quit, and most of those (about 70%) who still smoke want to quit. Here are some of the best ways to stop smoking. KEEP TRYING: It takes most smokers about 8 tries before they are finally able to fully quit. So, the more often you try and fail, the better your chance of quitting the next time! So, don't give up! GO COLD TURKEY: Most ex-smokers quit cold turkey. Trying to cut back gradually doesn't seem to work as well, perhaps because it continues the smoking habit. Also, it is possible to fool yourself by inhaling more while smoking fewer cigarettes. This results in the same amount of nicotine in your body! GET SUPPORT: Support programs can make an important difference, especially for the heavy smoker. These groups offer lectures, methods to change your behavior and peer support. Call the free national Quitline for more information. 870-KSYP-FLR (481-808-0377). Low-cost or free programs are offered by many hospitals, local chapters of the [employer] (066-719-2778) and the [employer] (390-907-4541). Support at home is important too. Non-smokers can help by offering praise and encouragement. If the smoker fails to quit, encourage them to try again! SSUH-GOC-EZOWXMX MEDICINES: For those who can't quit on their own, Nicotine Replacement Therapy (NRT) may make quitting much easier. Certain aids such as the nicotine patch, gum and lozenge are available without a prescription.However, it is best to use these under the guidance of your doctor. The skin patch provides a steady supply of nicotine to the body. Nicotine gum and lozenge gives temporary bursts of low levels of nicotine. Both methods take the edge off the craving for cigarettes. WARNING: If you feel symptoms ofnicotine overdose, such as nausea, vomiting, dizziness, weakness, or fast heartbeat, stop using these and see your doctor. PRESCRIPTION MEDICINES: After evaluating your smoking patterns and prior attempts at quitting, your doctor may offer a prescription medicine. Each has its unique advantage and side effects which your doctor can review with you. HEALTH BENEFITS OF QUITTING: The benefits of quitting start right away and keep improving the longer you go without smoking: -20 minutes: blood pressure and pulse return to normal -8 hours: oxygen levels return to normal -2 days: ability to smell and taste begins to improve as damaged nerves start to regrow -2-3 weeks: circulation and lung function improves -1-9 months: decreased cough, congestion and shortness of breath; less tired -1 year: risk of heart attack decreases by half -5 years: risk of lung cancer decreases by half; risk of stroke becomes the same as a non-smoker documented in this encounter Progress Notes * Royce Sanchez Campbell, DO - 01/22/2025 8:22 AM EDT VASCULAR SURGERY PROGRESS NOTE [address] [address] Name: Clotilde Pope [place] [facility] [place] Date: 01/22/2025 Time: 8:22 AM SUBJECTIVE: No acute events, patient is resting comfortably without complaint this morning. Pain iswell-controlled. No headaches. OBJECTIVE: Most Recent Vital Signs: BP: 102 mmHg/64 mmHg (01/22/25743) Pulse: 91 (01/22/25743) Resp: 17 (01/22/25743) Temp: 36.44 C (01/22/25743) Temp Summary: Temp Min: 36.3 °C (97.3 °F) Max: 36.6 °C (97.9 °F) SpO2: 93 % (01/22/25743) O2 flow rate: Supplemental O2 Delivery: Room Air, None (01/22/25743) Vital Signs Last 24 Hours: Most Recent Systolic BP Av.2 mmHg Min: 76 mmHg Max: 102 mmHg Most Recent Temperature Av.4 C Min: 36.28 C Max: 36.61 C Pulse Av.3 Min: 64 Max: 91 Resp Av.1 Min: 16 Max: 17 SpO2 Av.6 % Min: 93 % Max: 100 % Intake/Output Summary (Last 24 hours) at 01/22/2025821 Last data filed at 01/22/2025743 Gross per 24 hour Intake 1029.54 ml Output -- Net 1029.54 ml Physical Exam: Constitutional: No acute distress HEENT: Normocephalic, Cardiac: Normal sinus rhythm. Resp: Satting well on RA Abdomen/Pelvis: soft non tender Neuro: gross sensation and motor function intact bilaterally UE/LE, CN intact, tongue midline, no facial asymmetry Vascular: L neck, soft, nontender, no hematoma LABS: Lab results within last 7 days (see chart for full results) Units 01/22/25 0512 01/21/25 0408 WBC K/uL 8.95 10.38 HGB g/dL 9.5* 10.4* PLT K/uL 182 211 SODIUM mmol/L 140 136 POTASSIUM mmol/L 4.3 4.3 CHLORIDE mmol/L 104 103 CO2 mmol/L 25 25 BUN mg/dL 10 11 CREATININE mg/dL 0.8 0.8 CALCIUM mg/dL 8.2* 8.0* Recent Cultures (2 Weeks) No lab values to display. IMPRESSION and PLAN: 79 year old female s/p L CEA, retrograde L CCA VBC stent x3 - ASA, Plavix, statin - SBP <160 - Ok for diet - subq hep dvt ppx - Plan for discharge home today Patient examined at bedside and discussed w/ Dr. Olmos Cosigned by Nura Olmos MD at 01/22/2025 9:15 AM EDT Associated attestation - Nura Olmos MD - 01/22/2025 9:15 AM EDT I saw and evaluated the patient today. I have reviewed the resident/fellow physician note and agree. Hold home metoprolol for SBP <90 or symptoms of hypotension. Discussed signs and symptoms of cerebral hypoperfusion. DC on 81 mg asa, 75 mg plavix, statin. Nura Olmos MD Vascular Surgeon Department of Vascular Surgery [facility] * Talita Wang MD - 01/21/2025 7:43 AM EDT VASCULAR SURGERY [place]GRESS [place] [facility] [place] [address] Name: Clotilde Pope [place] [facility] [place] [facility] Date: 01/21/2025 Time: 7:43 AM SUBJECTIVE: No acute events, patient is resting comfortably without complaint this morning. Pain iswell-controlled. OBJECTIVE: Most Recent Vital Signs: BP: 90 mmHg/47 mmHg (01/21/25499) Pulse: 75 (01/21/25499) Resp: 16 (01/21/25499) Temp: 36.39 C (01/21/25499) Temp Summary: Temp Min: 36 °C (96.8 °F) Max: 36.7 °C (98 °F) SpO2: 100 % (01/21/25499) O2 flow rate: Supplemental O2 Delivery: Room Air, None (01/21/25499) Vital Signs Last 24 Hours: Most Recent Systolic BP Av.6 mmHg Min: 82 mmHg Max: 116 mmHg Most Recent Temperature Av.3 C Min: 36 C Max: 36.67 C Pulse Av.7 Min: 62 Max: 93 Resp Av.9 Min: 14 Max: 26 SpO2 Av.9 % Min: 96 % Max: 100 % Intake/Output Summary (Last 24 hours) at 01/21/2025 0743 Last data filed at 01/20/2025 1900 Gross per 24 hour Intake 3249.24 ml Output 800 ml Net 2449.24 ml Physical Exam: Constitutional: No acute distress HEENT: Normocephalic, Cardiac: Normal sinus rhythm. Resp: Satting well on RA Abdomen/Pelvis: soft non tender Neuro: gross sensation and motor function intact bilaterally UE/LE, CN intact, tongue midline, no facial asymmetry Vascular: L neck, soft, nontender, no hematoma, dressing with minimal strike though LABS: Lab results within last 7 days (see chart for full results) Units 01/21/25 0408 01/20/25 1050 WBC K/uL 10.38 10.30 HGB g/dL 10.4* 11.2* PLT K/uL 211 209 SODIUM mmol/L 136 137 POTASSIUM mmol/L 4.3 4.2 CHLORIDE mmol/L 103 105 CO2 mmol/L 25 18* BUN mg/dL 11 11 CREATININE mg/dL 0.8 0.7 CALCIUM mg/dL 8.0* 7.4* Recent Cultures (2 Weeks) No lab values to display. IMPRESSION and PLAN: 79 year old female s/p L CEA, retrograde L CCA VBC stent x3 - ASA, Plavix, statin - SBP <160 - Will consult Cardiology regarding troponins - Ok for diet - subq hep dvt ppx Talita Wang MD Vascular Surgery Fellow Cosigned by Servando Rees MD at 01/21/2025 9:01 AM EDT Associated attestation - Servando Rees MD - 01/21/2025 9:01 AM EDT I saw and evaluated the patient today. I have reviewed the resident/fellow physician note and agree. She feels great except disappointed we need to wait for d/c given bp and troponins Wound clear Neuro intact abrading machine tender intact Am labs acceptable Beta juan c held this am due to bp 78-90 systolic Will ask cardiology to review Family understands and discussed with them this am documented in this encounter H&P Notes * Gabriel Soto MD - 01/20/2025 5:38 AM EDT HISTORY AND PHYSICAL EXAMINATION - VASCULAR SURGERY [facility] [place] [address] Name: Clotilde Pope [place] [facility] [place]: 01/20/2025 Time: 6:48 AM PRESENTING PROBLEM: Severe disease L CCA with marked disease left bifurcation Severe R CCA disease with dense plaque and aneurysmal degeneration of her prior CEA with recurrent symptomatic right eye ischemia. Right eye vision is now reduced HISTORY OF PRESENT ILLNESS: Clotilde Pope is a 79 year old, female that presents to pre-op today for Left carotid endarterectomy with left CCA intrathoracic stent with neuromonitoring with Dr. Rees. Does not report any new issues or complaints since the last clinic visit. Also denies fevers, chills, night sweats, nausea, vomiting, diarrhea, chest pain, and shortness of breath. Does the patient take Coumadin (warfarin)? no Does the patient take any other anticoagulants? no Last Clinic Visit (12/16/24) Date of Service: 12/16/2024 3:41 PM Clotilde Pope is a 79 year old female. Patient being seen in consultation at the request of Kia Goetz MD Chief Complaint: F/U, complex carotid disease Also followed for PAD Since last visit patient's has (5 wks ago). 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 "Waxy" vision in right prompted evaluation by [facility] who diagnosed ischemic retina approximately two weeks ago. Dr Goetz then obtained CTA head and neck revealing high grade right CCA dense plaque stenosis with aneurysmal degeneration of right CEA site. 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 CORONARY DISEASE S/p CABG x 3 (OM, RCA, MORGAN) 04/2015 at [facility] in [place]. No symptoms now. CABG did have MORGAN to LAD but target and graft poor and did not work at time of initial surgery so left with OM and RCA as targets for CABG only. Her had CABG in [place] in 2021 (he has diabetes and never recovered his strength after the CABG) PAD She has pain in bilateral anterior thighs with ambulation L=R She can walk all over [facility] as long as she pushes the cart Unchanged pain in legs since seen in 11/2021 SMOKING Smoking essentially 1 ppd, trying to cut back. She tried acccupuncture and Chantix in the past Patches don't work for her. FAMILY HISTORY: Family history is noncontributory. COMPLETE REVIEW OF SYSTEMS: Cardiovascular: Negative for chest pain, shortness of breath, palpitations, angina or [facility] Neurological: Negative for stroke, TIA, amaurosis fugax All other systems negative except for those noted above and in the history of present illness (HPI). GENERAL MULTI-SYSTEM PHYSICAL EXAM: VITAL SIGNS: BP 114/62 (BP Site: Right Arm, BP Position: Sitting, BP Cuff Size: Regular) | Pulse 88 | Temp 36.3 °C (97.3 °F) (Temporal Artery) | Wt 60.3 kg (132 lb 14.4 oz) | BMI 25.96 kg/m² | BSA 1.6 m² GENERAL MULTI-SYSTEM PHYSICAL EXAM:ADDITIONAL VS: pulse regular. GENERAL: Normal grooming habits, no acute distress and appears stated age. NECK: No masses Right neck incision scar. RESPIRATORY: respiratory effort normal and breath sounds normal. CARDIOVASCULAR: RRR, systolic murmur, no BLE edema GASTROINTESTINAL: no tenderness, protuberant and abdominal aorta not palpable. LYMPHATIC: cervical lymph nodes normal SKIN: no ulcers, no rash, no induration, and no dependent rubor. PSYCHIATRIC: orientation to time, place and person normal and recent and remote memory normal. EYES: conjunctivae normal, eye lids normal, pupils normal and irises normal. NEUROLOGIC: Motor function intact and Sensory exam intact PULSE SCALE: Carotid Right:----Bruit: Yes Left:----Bruit: Yes Radial Right: 3 Left: 0 Femoral Right: 0 Left: 0 Popliteal Right: 0 Left: 0 Dorsalis Pedis Right: 0 Left: 0 Posterior Tibial Right: 0 Left: 0 PULSE SCALE: 4=Aneurysmal; 3=Normal; 2=Diminished; 1=Barely Palpable; 0=Absent DIAGNOSTIC STUDIES: 12/16/24 Carotid Duplex: right CCA severe stenosis, right carotid bifurcation stenosis and left CCA severe disese with reversed flow left external carotid artery. The above diagnostic images were directly visualized and independently interpreted by me on 12/16/2024 with results as above 04/05/24: CTA head/neck: R CCA severe stenosis, dense plaque and aneurysmal degeneration of the prior CEA site. L CCA/ICA mild calcified disease 10/11/21 NIKKIE .58/.66 10/11/21 Carotid duplex right 92/27 and left 234/34. Left vert retro LABS: Lab Results Component Value Date/Time CREATININE - [facility] 0.8 08/12/2024 08:58 AM CREATININE - [facility] 1.0 05/19/2024 01:55 PM CREATININE - [facility] 0.9 04/01/2024 03:07 PM CREATININE - [facility] 0.91 06/20/2021 12:00 AM CREATININE, RANDOM URINE - [facility] 136 08/11/2023 12:50 PM Lab Results Component Value Date/Time LDL (CALCULATED)-OUTSIDE LAB 58 06/20/2021 12:00 AM LDL CHOLESTEROL (CALCULATED) - [facility] 49 08/12/2024 08:58 AM LDL CHOLESTEROL (DIRECT MEASURE) - [facility] 76 02/10/2024 12:29 PM The above clinical lab tests were reviewed by me on 12/16/2024 IMPRESSIONS: Severe disease L CCA with marked disease left bifurcation Severe R CCA disease with dense plaque and aneurysmal degeneration of her prior CEA with recurrent symptomatic right eye ischemia. Right eye vision is now reduced Marked bilateral LE arterial occlusive disease with claudication Left subclavian arterial occlusive disease S/P CABG 04/2015 Dyslipidemia Smoker COPD Anxiety Lumbar disc disease with prior laminectomy PLAN: Left carotid endarterectomy with left CCA intrathoracic stent with neuromonitoring Later R CCA-ICA bypass using EEG monitoring given complexity Start plavix now, no pre op stop, likely to keep on for life Continue Lipitor 40 mg for dyslipidemia Continue daily aspirin 81 mg for arteriosclerosis The nature of nicotine addiction is discussed. The usefulness of behavioral therapy is discussed and recommended. The correct use, cost and side effects of the patch and other therapies were discussed. The quit rates are discussed ALL BP RIGHT ARM DUE TO LEFT SUBCLAVIAN DISEASE RTC ~ 1 month postop carotid duplex 1 wk prior, all at [facility] The patient was seen and examined with Servando Rees MD. Gregg Fonseca [facility] Section of Vascular [place] [address] [phone] I have reviewed the advanced practitioner's documentation on the date of service referenced in note, and I agree with, and take responsibility for the plan of care. CTA head and neck revealing high grade right CCA dense plaque stenosis with aneurysmal degenerationof right CEA site. Left carotid bifurcation and left CCA disease worse based upon duplex 12/16/24 No femoral pulses palpable since I first met her in 2021 Prior cardiac surgery op note from [place] reviewed: MORGAN graft failed intra-op, she has left subclavianocclusion which appears chronic. Left carotid endarterectomy and left CCA stent given she is right handed and left eye is her only good eye. Later right common carotid to right internal carotid bypass graft to replace the high grade stenosis and treat the aneurysmal segment at the same time. She has seen neurosurgery and neurophthalmology and she has decided to proceed with surgery with me. Her son has PHD at [facility] in [place], [place]. The patient was counseled at length regarding the nature of carotid disease, the potential risks for stroke, and treatment options of medical therapy versus carotid endarterectomy and carotid stent. I offered patient and her son the chance to proceed with another vascular surgeon if they wished to proceed sooner than available dates that I have for this surgery. A formal shared decision-making process was performed with Clotilde Pope. The discussion that followed was collaborative; detailing the information, risks, including risk of stroke and benefits of all treatment options including carotid endarterectomy, carotid stenting, and/or optimal medical therapy. We also discussed the values and preferences of the patient to build a consensus regarding the preferred treatment plan. A decision was reached to proceed with carotid stenting. I have discussed with the patient that they are at very high risk for the following anticipated complications due to the patient's co-morbidities including stroke, heart attack, intra-cranial hemorrhage, bleeding/clotting at the arterial access site, or pseudoaneurysm formation. I have also explained to the patient that additional risks of the procedure include, but not limited to, , radiation injury, bleeding, transfusion reaction, restenosis requiring repeat intervention, respiratory complications, and nerve damage. The patient understands the seriousness of the situation and would like to proceed with the carotid stent. I have discussed stroke education with the patient including signs and symptoms of stroke, TIA and amaurosis fugax and the patient expresses an understanding. I also spent time educating the patient on risk factor modification and the patient understands the importance of such modification for long-term health. The [facility] Vascular Surgery Carotid Endarterectomy Procedures Booklet was given to the patient given I am doing both CEA and stent. Servando Rees MD Section of Vascular [place] [address] [phone] HOSPITAL PROBLEM LIST: Patient Active Problem List Diagnosis Coronary artery disease involving [place] coronary artery of [place] heart without angina pectoris Hx of CABG PVD (peripheral vascular disease) with claudication ([facility]) History of right-sided carotid endarterectomy Tobacco use disorder Lumbar degenerative disc disease History of lumbar laminectomy Dyslipidemia, goal LDL below 70 Seasonal allergic rhinitis due to pollen Adjustment disorder with mixed anxiety and depressed mood Prediabetes SIXTO (generalized anxiety disorder) Ocular migraine Occlusion of left subclavian artery COPD, group A, by GOLD 2017 classification ([facility]) Symptomatic stenosis of right carotid artery without infarction Carotid artery aneurysm (HCC) Stenosis of extracranial carotid artery, right HTN, goal below 140/80 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 Harrison INJECTION OF EYE DRUG Left 12/15/2024 #[address] Harrison INJECTION OF EYE DRUG Right 01/06/2025 # 2 Avastin OD, Dr. Harrison INJECTION OF EYE DRUG Left 01/13/2025 # 2 Avastin OS, Dr. Harrison OTHER (INFORMATION) Act 112 signed - Dr. Harrison OTHER (INFORMATION) Bilateral AVASTIN OU CONSENT DR. HARRISON EXP. 12/06/25 OTHER (INFORMATION) Laser Consent EXP 12/21/2025 - Dr. Harrison [place] RPLCMT PROST AORTIC VALVE OPEN XCP HOMOGRF/STENT 2014 [place] TEAEC W/PATCH GRF CAROTID VERTB SUBCLAV NECK INC 2016 TREATMENT OF EXTENSIVE RETINOPATHY, PHOTOCOAGULATION Left 12/28/2024 Laer Treatment OS - Dr. Harrison FAMILY HISTORY: Family History Problem Relation Name Age of Onset Colon cancer Mother With mets to brain, age 97 Hypertension Mother Macular degeneration Mother Heart attack Father Fatal [facility] age 39 Asthma Sister Breast Cancer Sister SOCIAL HISTORY: Social History Tobacco Use Smoking status: Every Day Current packs/day: 2.00 Average packs/day: 2.0 packs/day for 58.0 years (116.0 ttl pk-yrs) Types: Cigarettes Smokeless tobacco: Former Tobacco comments: 12/16/24 smokes 10 cigs a day declined pamphlet Vaping Use Vaping status: Never Used Substance Use Topics Alcohol use: Never Drug use: Never CURRENT HOSPITAL MEDICATIONS: Note that completed medications (per the MAR) continue to display for 24 hours. Ordered medicationsto be given in the future also display. Current Facility-Administered Medications Medication Dose Route Frequency Provider albuterol-ipratropium (Duoneb) inhalation solution 3 mL 3 mL Nebulizer Once Carloz Trujillo MD ceFAZolin in dextrose (Ancef) ivpb 2 g 2 g IV Piggyback Pre-Op Gabreil Soto MD Isolyte-S pH 7.4 infusion Intravenous Continuous Gabriel Soto MD Facility-Administered Medications Ordered in Other Encounters Medication Dose Route Frequency Provider ISOLYTE infusion Intravenous Continuous PRN Carloz Trujillo MD ISOLYTE infusion Intravenous Continuous PRN Carloz Trujillo MD ALLERGIES: Levaquin [levofloxacin], Asmanex (120 metered doses) [mometasone furoate], and Cymbalta [duloxetinehcl] ROS: All other systems negative except for those in the history of present illness (HPI). PHYSICAL EXAMINATION: BP: 114 mmHg/41 mmHg (01/20/25612) Pulse: 76 (01/20/25599) Resp: 16 (01/20/25599) Temp: 36.5 C (01/20/25599) Temp Summary: Temp Min: 36.5 °C (97.7 °F) Max: 36.5 °C (97.7 °F) SpO2: 100 % (01/20/25599) O2 flow rate: Supplemental O2 Delivery: Room Air, None (01/20/25599) Gen: A&Ox3 HENT: Supple, No LAD, can only see out of L eye Pulm: clear to auscultation bilaterally, no respiratory distress Cardio: regular rate and rhythm, no murmurs or gallops Abd: Soft, non distended, no masses MSK: Spont moves extremities Neuro: Motor sensory intact UE&LE, CN intact, tongue midline, face symmetric Vascular: Palpable R radial, non palpable L radial, femoral, DP, PT bilateral LABS: Labs reviewed as indicated below: Recent Results (from the past 12 hours) GLUCOSE METER, POINT OF CARE Collection Time: 01/20/25 6:38 AM Result Value Ref Range Glucose - POCT 129 (H) 70 - 120 mg/dL IMAGING: No imaging results in the last 72 hours IMPRESSION and PLAN: Severe disease L CCA with marked disease left bifurcation Severe R CCA disease with dense plaque and aneurysmal degeneration of her prior CEA with recurrent symptomatic right eye ischemia. Right eye vision is now reduced Marked bilateral LE arterial occlusive disease with claudication Left subclavian arterial occlusive disease S/P CABG 04/2015 Dyslipidemia Smoker COPD Anxiety Lumbar disc disease with prior laminectomy - Plan for Left common carotid artery stent and left carotd endarterectomy today with Dr. Rees - Continue Plavix (took this AM, has been taking everyday), statin, bASA ALL BP RIGHT ARM DUE TO LEFT SUBCLAVIAN DISEASE Gabriel Soto MD Vascular Surgery Resident Cosigned by Servando Rees MD at 01/20/2025 7:08 AM EDT Associated attestation - Servando Rees MD - 01/20/2025 7:08 AM EDT I saw and evaluated the patient today. I have reviewed the resident/fellow physician note and agree. documented in this encounter Procedure Notes * Nic Salazar MD - 01/20/2025 10:44 AM EDTAssociated Order(s): EKG REASON FOR STUDY: POST OP CONCLUSIONS: Sinus rhythm with frequent and consecutive Premature ventricular complexes Nonspecific ST abnormality Prolonged QT interval or tu fusion, consider myocardial disease, electrolyte imbalance, or drug effects When compared with ECG of 01-Apr-2024 11:41, Premature ventricular complexes are now Present QT has lengthened Ventricular Rate: 79 Atrial Rate: 79 [place] Interval: 154 QRS Duration: 72 QT/QTc: 438/502 ms P-R-T [place]: 71 : -8 : 86 degrees documented in this encounter Consult Notes * Royce Steve DO - 01/21/2025 9:43 AM EDTAssociated Order(s): CARDIOLOGY CONSULT IP CONSULT - Cardiology [address] [address] Name: Clotilde Pope [place] [facility] [place]: 01/21/2025 Time: 9:43 AM REQUESTING SERVICE: Vascular Surgery REASON FOR CONSULT: "elevated troponins post carotid endarterectomy " HPI: 79 YO F admitted for carotid endarterectomy. Cardiology has been consulted after patient developed dyspnea after the procedure and was found to have elevated troponin PMH includes: BRAD s/p L carotid endarterectomy with pericardial patch and stenting (01/20/2025) and s/p R CEA (07/2016) with recurrent stenosis CAD s/p CABG x3 (04/2015 [facility], [place]: MORGAN-LAD unsuccessful graft intra-op, ?SVG-RCA, ?SVG-OM) L subclavian stenosis due to failed MORGAN graft Tobacco use disorder PAD with claudication Dyslipidemia HTN COPD Anxiety Underwent left carotid endarterectomy with pericardial patch and stenting x 3 on 01/20/2025. Postoperatively perforation developed dyspnea. ECG was obtained which showed no acute ischemic changes. High sensitivity troponin T mildly elevated but flat at 47 -> 39. ECG obtained 01/20/2025 around the time of the event showed frequent PVCs, possible old anteroseptal infarct, and nonspecific ST-T changes, and significant baseline artifact. Repeat ECG 01/21/2025 showed no dynamic changes or other changes from baseline, no signs of acute ischemia or myocardial injury. Patient has been persistently hypotensive to borderline hypotensive with map around 60 since the procedure, BP ranging 70-95/40-50. BP has been improving with fluids Patient does not recall the events from yesterday with a reported dyspnea postop. Patient's son andother family present at bedside. They explained to me that when she is short of breath and confused, as in similar situations in the past after receiving anesthesia, she will cry out “I can not breathe” as a means of requesting her personal bedside fan that she uses most of the time for COPD related dyspnea. Patient denies any dyspnea that she can recall and denies any episodes of chest pain during this admission or prior to this admission in recent history. She reports she has been out of bed to and from the chair yesterday and today and denies any lightheadedness despite lower blood pres sures. The patient is asymptomatic at this time. Hb 11.2 on admission. However, Hb down from 14.2 on 01/18/2025 to 10.4 on 01/21/2025. I asked the patient if she has had any melena, hematochezia, or any other bailey blood loss as she is aware of andshe denies that. PAST MEDICAL HISTORY: Past Medical History: Diagnosis Date COPD (chronic obstructive pulmonary disease) (HCC) H/O carotid endarterectomy 2016 right H/O microdiscectomy 2015 H/O tubal ligation 1978 History of delivery 1976 History of three vessel coronary artery bypass 2014 PAST SURGICAL HISTORY: Past Surgical History: Procedure Laterality Date INJECTION OF EYE DRUG Right 12/06/2024 # 1 Avastin OD, Dr. Harrison INJECTION OF EYE DRUG Left 12/15/2024 #[address] Harrison INJECTION OF EYE DRUG Right 01/06/2025 # 2 Avastin OD, Dr. Harrison INJECTION OF EYE DRUG Left 01/13/2025 # 2 Avastin OS, Dr. Harrison OTHER (INFORMATION) Act 112 signed - Dr. Harrison OTHER (INFORMATION) Bilateral AVASTIN OU CONSENT DR. HARRISON EXP. 12/06/25 OTHER (INFORMATION) Laser Consent EXP 12/21/2025 - Dr. Harrison [place] RPLCMT PROST AORTIC VALVE OPEN XCP HOMOGRF/STENT 2014 [place] TEAEC W/PATCH GRF CAROTID VERTB SUBCLAV NECK INC 2016 TREATMENT OF EXTENSIVE RETINOPATHY, PHOTOCOAGULATION Left 12/28/2024 Laer Treatment OS - Dr. Harrison FAMILY HISTORY: Family History Problem Relation Name Age of Onset Colon cancer Mother With mets to brain, age 97 Hypertension Mother Macular degeneration Mother Heart attack Father Fatal [facility] age 39 Asthma Sister Breast Cancer Sister SOCIAL HISTORY: Social History Tobacco Use Smoking status: Every Day Current packs/day: 2.00 Average packs/day: 2.0 packs/day for 58.0 years (116.0 ttl pk-yrs) Types: Cigarettes Smokeless tobacco: Former Tobacco comments: 12/16/24 smokes 10 cigs a day declined pamphlet Vaping Use Vaping status: Never Used Substance Use Topics Alcohol use: Never Drug use: Never ALLERGIES: Levaquin [levofloxacin], Asmanex (120 metered doses) [mometasone furoate], and Cymbalta [duloxetinehcl] ROS: PHYSICAL EXAMINATION: Most Recent Vital Signs: BP: 78 mmHg/44 mmHg (01/21/25 0816) Pulse: 75 (01/21/25 0500) Resp: 16 (01/21/25 08) Temp: 36.28 C (01/21/25 08) Temp Summary: Temp Min: 36 °C (96.8 °F) Max: 36.7 °C (98 °F) SpO2: 63 % (01/21/25 08) O2 flow rate: Supplemental O2 Delivery: Room Air, None (01/21/25 0500) Vital Signs Last 24 Hours: Systolic BP: Most Recent Systolic BP Av.3 mmHg Min: 78 mmHg Max: 116 mmHg Temperature: Most Recent Temperature Av.3 C Min: 36 C Max: 36.67 C Pulse: Pulse Av.7 Min: 62 Max: 93 Respirations: Resp Av.7 Min: 14 Max: 26 SpO2: SpO2 Av.2 % Min: 63 % Max: 100 % General Exam: General: NAD Head and face: atraumatic, normocephalic Eyes: normal lids, nonicteric sclera, no conjunctival injection Respiratory: Non-labored breathing, CTAB, no adventitious breath sounds Cardiovascular: regular rate and rhythm, S1 and S2 appreciated Peripheral vascular: cap refill <2 seconds, no LE edema, R Radial 2/4 Skin: warm and well perfused Psychiatric: normal mood and normal affect LABS: Reviewed EMR 01/21/25 04:08 SODIUM 136 POTASSIUM 4.3 CHLORIDE 103 CO2 25 BUN 11 CREATININE 0.8 EGFR 77 ANION GAP 8 GLUCOSE 122 (H) CALCIUM 8.0 (L) 01/18/25 13:05 01/20/25 10:50 01/21/25 04:08 WBC 7.31 10.30 10.38 RBC 4.89 3.73 3.54 HGB 14.2 11.2 (L) 10.4 (L) HCT 43.8 33.0 (L) 32.5 (L) MCV 89.6 88.5 91.8 MCH 29.0 30.0 29.4 MCHC 32.4 33.9 32.0 RDW 14.9 14.1 14.5 PLT 223 209 211 MPV 10.1 10.0 10.5 Latest Reference Range & Units 01/20/25 10:50 01/20/25 13:52 01/21/25 04:08 Troponin T, High Sensitivity <=14 ng/L 47 (H) 39 (H) 27 (H) STUDIES: Reviewed [facility] TTE 05/13/22 Interpretation Summary The examination is adequate to evaluate the referral indication. A trivial circumferential pericardial effusion is noted. The qualitative LV ejection fraction is 55-59% (normal). The LV wall thickness is normal. The left ventricular wall motion is normal. The left ventricular diastolic function is mildly abnormal (grade I). Mild mitral regurgitation is present. Mild tricuspid regurgitation is present. There is no evidence of pulmonary hypertension. ECG: as stated in HPI ZIO 07/05/2024-07/19/2024 Preliminary read Patient had a min HR of 54 bpm, max HR of 194 bpm, and avg HR of 75 bpm. Predominant underlying rhythm was Sinus Rhythm. 1 run of Ventricular Tachycardia occurred lasting 6 beats with a max rate of 148 bpm (avg 137 bpm). 7 Supraventricular Tachycardia runs occurred, the run with the fastest interval lasting 4 beats with a max rate of 194 bpm, the longest lasting 7 beats with an avg rate of 105 bpm. Some episodes of Supraventricular Tachycardia may be possible Atrial Tachycardia with variable block. Isolated SVEs were rare (<1.0%), SVE Couplets were rare (<1.0%), and SVE Triplets were rare (<1.0%). Isolated VEs were occasional (2.5%, 56978), VE Couplets were rare (<1.0%, 4934), and VE Triplets were rare (<1.0%, 4). Ventricular Bigeminy and Trigeminy were present. 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 Cardiac Meds: ASA 81 Atorvastatin 40 Clopidogrel 75 Ezetimibe 10 Metoprolol succinate 25 Active Cardiac Meds: ASA 81 Atorvastatin 40 Clopidogrel 75 Ezetimibe 10 Metoprolol tartrate 12.5 twice daily IMPRESSION and RECOMMENDATIONS: Principal Problem: Symptomatic stenosis of both carotid arteries without infarction (POA: Yes) Active Problems: Coronary artery disease involving [place] coronary artery of [place] heart without angina pectoris (POA: Yes) Ocular ischemic syndrome (POA: Yes) Idiopathic hypotension (POA: No) Resolved Problems: Symptomatic stenosis of right carotid artery without infarction (POA: Unknown) POA = Present On Admission 79 YO F admitted for carotid endarterectomy. Cardiology has been consulted after patient developed dyspnea after the procedure and was found to have elevated troponin. Pertinent PMH as outlined in HPI. The patient has myocardial injury that has likely related to intraoperative and postoperative hypotension in the setting of known ischemic cardiomyopathy. She also has a new unexplained anemia witha 4 g drop in hemoglobin from baseline which is likely a contributing factor. There is no evidence of acute coronary syndrome of any type. Patient has no anginal symptoms and no acute ischemic ECG changes. Episode of dyspnea yesterday can be explained by patient not having her bedside found that she uses for COPD and her behavior was similar to that of prior episodes in the delirious postanesthesia state as explained by the patient's son. Recommendations by problem as follows: Myocardial injury 2/2 sher-/postoperative hypotension exacerbated by acute anemia Acute normocytic anemia of unknown etiology - no concern for ACS or any other acute cardiac issue. No further inpatient evaluation. 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 They can get an echo then for a new baseline - resume 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 metoprolol succinate if BP remains improved after d/c - investigate anemia with iron panel and start iron supplements if low - ok to d/c from our perspective once maintaining normotension. BP 90s/60s at time of my exam Will sign-off at this time. Thank you for allowing us to participate in the care of this patient. Please call with any questions. Pt was seen, examined, and discussed with attending physician Dr. Guy. Please see final attestation for any additional recommendations. This chart was completed in part utilizing [employer] Speech Voice Recognition Software. Grammatical errors, random word insertions, pronoun errors, and incomplete sentences are an occasional consequence of this system due to software limitations, ambient noise, and hardware issues. Any formal questions or concerns about the content, text, or information contained within the body of this dictation should be directly addressed to the physician for clarification. Royce Steve DO Cardiovascular Disease Fellow 01/21/2025 9:43 AM Cosigned by Juan Guy MD at 01/21/2025 2:37 PM EDT Associated attestation - Juan Guy MD - 01/21/2025 2:37 PM EDT I saw and evaluated the patient today. I have reviewed the resident/fellow physician note and agree. 60 min of care time was provided to the patient * Kimber Serrano RN - 01/20/2025 2:32 PM EDTAssociated Order(s): CARE MANAGEMENT CONSULT IP Chart reviewed. Patient was independent 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, ambulates w/cane. No Care Management needs identified at this time. Care Management will continue to follow. documented in this encounter Nursing Notes * Arnold Navarro RN - 01/22/2025 9:34 AM EDT VIRTUAL RN [address] [address] Name: Clotilde Pope [place] [facility] [place] Date: 01/22/2025 Time: 9:34 AM I completed the Discharge Navigator. The patient was in the hospital. I was in a private office space at a [facility] location. After connecting through [employer], the patient was identified by name and date of and / or wristband checked. Patient (or authorized legal traffic representative) was then in formed that this was a Virtual Nurse visit and was being conducted confidentially over secure lines. I used a headset and other methods to ensure confidentiality for the patient. Patient acknowledgedconsent and understanding of privacy and security of the Virtual Nurse visit. I presented the opportunity for the patient or authorized legal traffic representative to ask any questions regarding the visit today. The patient or authorized legal traffic representative agreed to participate. * Danii Churchill, [place] - 01/20/2025 6:03 PM EDT Dual Licensed Skin Assessment completed by Jenny. The patient is/has a N/A Skin Breakdown (includes non blanchable erythema): Yes - Surgical/Procedural changes only. [place], blanchable sacrum. * Aiyana Pena RN - 01/20/2025 2:17 PM EDT VIRTUAL RN [address] [address] Name: Clotilde Pope [place] [facility] [place] Date: 01/20/2025 Time: 2:17 PM I completed the Admission Navigator. The patient was in the hospital. I was not in a hospital or clinic location. After connecting through [employer], the patient was identified by name and date of and / or wristband checked. Patient (or authorized legal traffic representative) was then informed that this was a Virtual Nurse visit and was being conducted confidentially over secure lines. I used a headset and other methods to ensure confidentiality for the patient. My office door was closed. No oneelse was in the room with me. Patient acknowledged consent and understanding of privacy and security of the Virtual Nurse visit. I presented the opportunity for the patient or authorized legal traffic representative to ask any questions regarding the visit today. The patient or authorized legal traffic representative agreed to participate. * Phyllis Ruano NA - 01/20/2025 1:55 PM EDT Post Anesthesia Care Unit Transport Note [address] [address] Dept. Clotilde Pope Transported from [facility] to : [facility] Time: 13:30 Care of patient transferred to: Norma SAUER Transported via: Bed Belongings with Patient: YES Pulse : 44 Temp : 36.2 BP : 92/47 Respirations : 18 Pulse Ox : 95 O2 : Room air SCDS: On but not activated/no machine * Mindy Matos RN - 01/20/2025 11:55 AM EDT PERIOP TO IP HANDOFF COMMUNICATION NOTE [facility] [address] Name: Clotilde Pope AGE: [id number] year old [place] [facility] [place]: 01/20/2025 Attention to: Melinda Esposito RN Report from: Mindy Matos RN Patient arriving via: Bed Time of call: 11:55 AM Phone Ext: [phone] Reason for SBAR (Situation, Background, Assessment, Recommendation) handoff: OR Sending to: [facility] 870 Emotional/Personal Events & Special Needs: no Prescriptions in chart: No Code Status: Full Code Safety Concerns: no safety concerns identified Allergies: Levaquin [levofloxacin], Asmanex (120 metered doses) [mometasone furoate], and Cymbalta [duloxetine hcl] PMH: Past Medical History: Diagnosis Date COPD (chronic obstructive pulmonary disease) (HCC) H/O carotid endarterectomy 2016 right H/O microdiscectomy 2015 H/O tubal ligation 1978 History of delivery 1976 History of three vessel coronary artery bypass 2014 PSH: Past Surgical History: Procedure Laterality Date INJECTION OF EYE DRUG Right 12/06/2024 # 1 Avastin OD, Dr. Harrison INJECTION OF EYE DRUG Left 12/15/2024 #[address] Harrison INJECTION OF EYE DRUG Right 01/06/2025 # 2 Avastin OD, Dr. Harrison INJECTION OF EYE DRUG Left 01/13/2025 # 2 Avastin OS, Dr. Harrison OTHER (INFORMATION) Act 112 signed - Dr. Harrison OTHER (INFORMATION) Bilateral AVASTIN OU CONSENT DR. HARRISON EXP. 12/06/25 OTHER (INFORMATION) Laser Consent EXP 12/21/2025 - Dr. Harrison [place] RPLCMT PROST AORTIC VALVE OPEN XCP HOMOGRF/STENT 2014 [place] TEAEC W/PATCH GRF CAROTID VERTB SUBCLAV NECK INC 2016 TREATMENT OF EXTENSIVE RETINOPATHY, PHOTOCOAGULATION Left 12/28/2024 Laer Treatment OS - Dr. Harrison Isolation: Isolation: Procedure: left carotid endarterectomy with pericardial patch angioplasty. Left common carotid retrograde VBX stent placement x3. Neuromonitoring with EEG Type of Anesthesia: General endotracheal anesthesia Block: no IV intake: 800 mL EBL: OR: 300 mL PACU: 0 mL Urine output: OR 0 mL PACU 0 mL IUBC ([place]): Incision location: L neck Dressing location: L neck Time of last skin assessment: 1100 Pressure injuries or areas of concern: no Lines: Peripheral Line Right Arm 18 Gauge (Active) Status Capped/Locked 01/20/25 1100 Tubing Changed N/A 01/20/25 1100 Phlebitis Scale 0 01/20/25 1100 Infiltration Scale 0 01/20/25 1100 Site Description (Other) Without redness, swelling or drainage 01/20/25 1100 Site Intervention None required 01/20/25 1100 Dressing Assessment Dressing clean, dry, and intact;Transparent dressing 01/20/251099 Dressing Intervention None required 01/20/251099 Number of days: 0 Peripheral Line Left Hand 18 Gauge (Active) Status Fluids infusing 01/20/25 1100 Tubing Changed N/A 01/20/25 1100 Phlebitis Scale 0 01/20/25 1100 Infiltration Scale 0 01/20/251099 Site Description (Other) Without redness, swelling or drainage 01/20/25 1100 Site Intervention Flushed 01/20/251099 Dressing Assessment Dressing clean, dry, and intact 01/20/25 1100 Dressing Intervention None required 01/20/251099 Number of days: 0 Vital Signs: BP: 92/39 (01/20/25 114) Temp: 36.3 °C (97.3 °F) (01/20/25 1100) Pulse: 80 (01/20/25 114) Resp: 22 (01/20/25 114) SpO2: 100 % (01/20/25 114) Time of last pain medication: 1147 Med: oxy Time of last antibiotic: 0748 Med: ancef Time of last antiemetic: 0949 Med: zofran 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 HAND: no Drips: no Neurological: Speech/Cry: Clear (01/20/25 114) Level of Consciousness: Alert (01/20/25 114) RUE Motor Strength: 5-Active movement with full resistance (01/20/25 114) RLE Motor Strength: 5-Active movement with full resistance (01/20/25 114) LUE Motor Strength: 5-Active movement with full resistance (01/20/25 1145) LLE Motor Strength: 5-Active movement with full resistance (01/20/25 114) Right Pupil Size (mm): 3 (01/20/25 1145) Right Pupil Reaction: Reactive (01/20/25 114) Left Pupil Size (mm): 3 (01/20/25 114) Left Pupil Reaction: Reactive (01/20/25 114) Coma Score: 15 (01/20/25 114) Respiratory: Respiratory WNL: X - Exceptions to WNL as documented below (01/20/25 1100) Respiratory Effort: Unlabored (01/20/25 0624) Oxygen therapy/ Mechanical vent Supplemental O2 Delivery: Room Air, None (01/20/25 114) Cardiac: Cardiovascular WNL: X - Exceptions to WNL as documented below (01/20/25 1100) Heart Sounds: S1;S2 (01/20/251099) Rhythm: PVC (01/20/251099) Extremities: +Sensation;Right;Left;Upper;Lower (01/20/251099) Pulses Right: Radial +;Dorsalis Pedis + (01/20/251099) Pulses Left: Dorsalis Pedis +;Radial + (01/20/251099) GI: GI WNL: WNL - within normal limits (01/20/251099) : WNL: X - Exceptions to WNL as documented below (01/20/251099) Urine Description: (no urine to assess at this time) (01/20/251099) Due to Void: 1627 Integumentary:Integumentary WNL: WNL - within normal limits (01/20/251099) Skin Description: Dry;Warm (01/20/251099) Family updated on transfer: yes Additional Assessment Information: Pt doing well post op. NPOx meds and ice until 1630. * Mindy Matos RN - 01/20/2025 11:03 AM EDT Dual Licensed Skin Assessment completed by Mindy Lee RN and Amirah Tran RN. The patient is/has a N/A Skin Breakdown (includes non blanchable erythema): Yes - Surgical/Procedural changes only. * Sulema Blair RN - 01/20/2025 7:10 AM EDT Dual Licensed Skin Assessment completed by Radha and Sheldon. The patient is/has a N/A Skin Breakdown (includes non blanchable erythema): No * Lizette Pelaez RN - 01/18/2025 8:50 AM EDT Presurgery instructions sent to patient via Rico message. Did not call. Pre-operative chart review completed. NO ANESTHESIA EVAL REQUESTED PER CASE DOCUMENTATION. PREOP PATIENT INFORMATION AND EDUCATION: MEDICATION INSTRUCTIONS: The day of surgery/procedure, you may TAKE the following medications with a sip of water up to 2 hours prior to your arrival time: Please follow the pre-operative instructions provided by your vascular surgeon. If you have any questions regarding these instructions please contact your surgeon's office at [phone]. Nothing to eat or drink by mouth after midnight the night before surgery including no food, no gum/hard candy, coffee, tea, other drink, or tobacco product. Continue all of your normal morning medications with a few sips of water on day of surgery unless otherwise instructed. CONTINUE your ASPIRIN & PLAVIX, including morning of surgery. STOP taking the following medications the noted number of days prior to surgery/procedure unless otherwise specified by your surgeon: Please follow surgeon's instructions regarding use of Aspirin, Coumadin, Plavix, Eliquis, and any other blood thinner including NSAIDs (non-steroidal anti- inflammatory drugs, eg, Advil, Ibuprofen, Motrin, Aleve, Naproxen); if you have any questions regarding your anticoagulation therapy please contact your surgeon's clinic. Please verify any proposed stoppage of your anticoagulation therapy with the agent's prescribing provider. 10 days prior to surgery/procedure Stop all Herbal supplements, Green Tea, Turmeric, Melatonin, CBD, THC, etc. Stop all Vitamins (including Vitamin E) 24 hours prior to surgery/procedure DO NOT consume any alcohol. DO NOT use medical marijuana. DO NOT smoke or use tobacco products of any kind after midnight prior to surgery. *Using any of these products may increase your risks of procedural complications. IF IT IS LESS THAN RECOMMENDED STOPPAGE TIME PLEASE STOP AT TIME OF NOTIFICATION. THE DAY BEFORE YOUR SURGERY: -Drink plenty of fluid the day before your surgery. Contact your surgeon's office if you develop any of the following within 2 weeks of surgery: A cold Infection Fever Shingles Chicken pox or exposure to chicken pox Open areas such as scrapes, cuts, bedoya or other skin conditions Rashes GENERAL INSTRUCTIONS FOR PREPARING FOR SURGERY: BATHING INSTRUCTIONS: Bathe the evening prior to and the morning of surgery/procedure. Cleanse your body using ONLY anti-bacterial soap (eg, Dial, Safeguard) or any specific soap/cleansers and instructions provided by your surgeon (eg, Chlorhexidine). -You should brush your teeth the morning of surgery. Do NOT apply any lotions, powders, sprays, creams, oils, make-up, or deodorants after bathing. No hairspray, or nail somali on fingers or toes. Day of surgery/procedure do not use tampons. If you wear contacts wear your eyeglasses if available otherwise bring your contact supplies with you to remove them prior to your surgery/procedure. If you wear glasses or dentures, please bring cases in which you can store them during your surgery. Please remove all piercings and jewelry and leave them at home. Wear comfortable and loose clothing. -Please leave all valuables at home. -If you use a CPAP and are staying overnight, please bring your mask and tubing with you to the hospital. -If you use an assistive mobility device (walker, cane, etc), please label it with your name and bring to hospital. -An escort driver/refuse collector is required if you are being discharged the same day of the surgery. You should have a responsible adult over the age of 18 [address] you home. This person should be present with youin the hospital at the time of discharge and for the first 24 hours after the surgery to support your needs. If you are taking a taxi home, you must have your responsible green party accompany you in the taxi ride home at the time of discharge. OR times subject to change. Please check voicemail messages the day/evening before your surgery forany updates. PRE-OP: You will be taken to the pre-op area where your vital signs (blood pressure, pulse and temperature)will be taken. Any preparations that need to be done will be done there. When it is time for your surgery, you will be taken to the operating room. PARENTS OF PEDIATRIC PATIENTS WILL BE ALLOWED TO STAY WITH THEIR CHILDREN UNTIL THEY ARE ESCORTED TO THE OPERATING ROOM OUTPATIENT SURGERY PATIENTS: After your surgery you will be taken to the Same Day Surgery Unit when you are awake and will go home from there. You will get instructions about your home care before you leave. Arrange to have someone drive you home from the hospital. You may not drive for 24 hours after anesthesia. You must havean adult stay with you at home for 24 hours after your operation. This is very important. If you are not able to comply with these guidelines, your Short Stay surgery cannot be done. ADMISSION PATIENTS: After your stay in the recovery area, you will be taken to your room. Your family may visit you in your room based on current visitation policy. If a next day discharge is expected, it is important to make arrangements for a driver/refuse collector to take you home. Please be aware our visitation policies are subject to change Professionals, attendants, caregivers or family members are allowable visitors for patients with intellectual, developmental or cognitive disabilities, communication barriers or behavioral concerns. Because patients' and families' needs vary, they will be taken into account when applying visitation restrictions. [facility]: Contact # [phone] Directions to Surgical Suite in from the [facility] Entrance The Surgical Waiting Room can be found in the Lobby of [facility]. [facility] and the Waiting Room is directly in front of you. Proceed to check in and give them your name. Directions to Surgical Suite from the East Entrance Enter the East entrance and follow the hallway to the J elevator. Take the J elevator up to Level 1. [facility] The [facility] Waiting Room will be on your Right. Proceed to check in and give them your Name. Directions to Surgical Suite from the Parking Garage Enter the [facility] lobby and proceed down the garcia to the left. At the end of the garcia, turn right. Continue down the long hallway to the main [facility] Lobby. The Surgical Waiting Room will be on your Right. Proceed to check in and give them your Name. Lizette Pelaez, MSN, RN [facility] 01/18/2025 documented in this encounter OR Notes * OR Surgeon - Servando Rees MD - 01/20/2025 10:07 AM EDT [facility] [address] [id number] OPERATIVE REPORT Name: Clotilde Pope Date: 01/20/2025 Time: 10:07 AM Location: [facility] Service: Vascular Surgery Date of Operation: 01/20/2025 Pre-op Diagnosis: 90% left carotid stenosis. Post-op Diagnosis: Same Surgeon: Servando Rees MD Assistants: Talita Wang MD Anesthesia: General endotracheal anesthesia Operation: left carotid endarterectomy with pericardial patch angioplasty. Left common carotid retrograde VBX stent placement x3. Neuromonitoring with EEG Findings: 90% left common carotid stenosis with 60% left carotid bifurcation stenosis Specimen and Disposition: None Estimated Blood Loss: 300 ml Fluids: 1600 ml crystalloid Urine output: None Drains/Implants: Pericardial Patch and VBX stents x3 Complications: None Postoperative Condition: Stable Indications and History: Clotilde Pope presents with a left carotid stenosis. 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 Description of Operation: The patient was seen in the Holding Room and the site of surgery properly noted and marked. The patient was identified as Clotilde Pope, and the procedure verified. In the operating room a Time Out washeld and the above information confirmed. The patient was given anesthesia. The left neck was prepped and draped in the usual sterile fashion. An incision was made along the anterior border of the sternocleidomastoid muscle with dissection of the carotid sheath. The vagus and hypoglossal nerves were identified in their usual anatomic positions and carefully preserved. The patient was fully anticoagulated with heparin intravenously. The common carotid artery was encircled with an umbilical tape and secured with a Rumel tourniquet. The external carotid artery was surrounded with a vessel loop. The internal, external and common carotid arteries were then clamped in that order. An arteriotomy was made from the distal common carotid artery extending into the proximal internal carotid artery identifying a densely calcified plaque. Neuromonitoring showed no changes so shunt not used. At this point, a standard endarterectomy of the internal carotid artery and common carotid artery was performed with an excellent endpoint. An eversion endarterectomy of the external carotid artery was performed. The extensive carotid plaque was removed. A pericardial patch was obtained for use and beveled appropriately and sewn in place with running 6-0 Prolene. Prior to completion of this patch closure, appropriate flushing was performed and this left untied for continued flushing during carotid stent placement. Wire and 6F sheath placed in distal common carotid and under fluroscopy images obtained of the common carotid severe disease. 3 VBX stents placed in retrograde fashion in the common carotid intrathroacic segment including two 7 mm by 39 mm long and one 7mm by 29 mm long with proximal segment flaredwith 8mm Ducor balloon. Flow was begun first up the external carotid artery and then the internal carotid artery. Excellentpulse was palpated in the internal carotid artery with strong doppler flow. Hemostasis was insured.The wound was irrigated with antibiotic solution. The skin and subcutaneous tissues were infiltrated with local anesthetic. The platysma was reapproximated with interrupted 3-0 Vicryl and skin closedwith 4-0 Monocryl. Sterile dressings applied. Attestation: I was present and scrubbed for the entire procedure documented in this encounter Miscellaneous Notes * Pt Handout (on AVS) - Gaby Gayle RN - 01/22/2025 7:47 AM EDT [id number] Oxycodone Brand Name(s): Oxaydo®, Oxycontin®, Roxicodone®, Roxybond®, Xtampza® ER, Combunox® (as a combination product containing Ibuprofen, Oxycodone), Narvox® (as a combination product containing Acetaminophen, Oxycodone), Oxycet® (as a combination product containing Acetaminophen, Oxycodone), Percocet® (as a combination product containing Acetaminophen, Oxycodone), Percodan® (as a combination product containing Aspirin, Oxycodone), Roxicet® (as a combination product containing Acetaminophen, Oxycodone), Roxilox® (as a combination product containing Acetaminophen, Oxycodone), Roxiprin® (as a combination product containing Aspirin, Oxycodone), Targiniq® ER (as a combination product containing naloxone, oxycodone), Troxyca ER® (as a combination product containing Naltrexone, Oxycodone), Tylox® (as a combination product containing Acetaminophen, Oxycodone), Xartemis XR® (as a combination product containing Acetaminophen, Oxycodone); also available generically IMPORTANT WARNING: Oxycodone may be habit-forming. Take oxycodone exactly as directed. Do not take more of it, take itmore often, or take it in a different way than directed by your doctor. While taking oxycodone, discuss with your healthcare provider your pain treatment goals, length of treatment, and other ways tomanage your pain. Tell your doctor if you or anyone in your family drinks or has ever drunk large amounts of alcohol, uses or has ever used street drugs, or has overused prescription medications, or has had an overdose, or if you have or have ever had depression or another mental illness. There is a greater risk that you will overuse oxycodone if you have or have ever had any of these conditions.Talk to your healthcare provider immediately and ask for guidance if you think that you have an opioid addiction or call the U.S. Substance Abuse and Mental Health Services Administration (SAMHSA) National Helpline at 8-538-763-GOSE. Oxycodone may cause serious or life-threatening breathing problems, especially during the first 24 to 72 hours of your treatment and any time your dose is increased. Your doctor will monitor you carefully during your treatment. Tell your doctor if you have or have ever had slowed breathing or asthma. Your doctor will probably tell you not to take oxycodone. Also tell your doctor if you have or have ever had lung disease such as chronic obstructive pulmonary disease (COPD; a group of diseases that affect the lungs and airways), a head injury a brain tumor, or any condition that increases the amount of pressure in your brain. The risk that you will develop breathing problems may be higher if you are an older adult or are weak or malnourished due to disease. If you experience any of the following symptoms, call your doctor immediately or get emergency medical treatment: slowed breathing, long pauses between breaths, or shortness of breath. Do not allow anyone else to take your medication. Oxycodone may harm or cause to other peoplewho take your medication, especially children. Keep oxycodone in a safe place so that no one else can take it accidentally or on purpose. Be especially careful to keep oxycodone out of the reach of children. Keep track of how many capsules, tablets, or oral solution is left so you will know if any medication is missing. Taking certain other medications with oxycodone may increase the risk of serious or life-threatening breathing problems, sedation, or coma. Tell your doctor and pharmacist what other prescription andnonprescription medications, vitamins, nutritional supplements, and herbal products you are taking or plan to take. Your doctor may need to change the doses of your medication and will monitor you carefully. If you take oxycodone with other medications and you develop any of the following symptoms,call your doctor immediately or seek emergency medical care: unusual dizziness, lightheadedness, extreme sleepiness, slowed or difficult breathing, or unresponsiveness. Be sure that your caregiver orfamily members know which symptoms may be serious so they can call the doctor or emergency medical care if you are unable to seek treatment on your own. Drinking alcohol, taking prescription or nonprescription medications that contain alcohol, or usingstreet drugs during your treatment with oxycodone increases the risk that you will experience serious, life-threatening side effects. Do not drink alcohol, take prescription or nonprescription medications that contain alcohol, or use street drugs during your treatment. If you are taking the oxycodone extended-release tablets, swallow them whole; do not chew, break, divide, crush, or dissolve them. Do not presoak, lick or otherwise wet the tablet prior to placing inthe mouth. Swallow each tablet right after you put it in your mouth. If you swallow broken, chewed,crushed, or dissolved extended-release tablets, you may receive too much oxycodone at once instead of slowly over 12 hours. This may cause serious problems, including overdose and . Oxycodone comes as a regular solution (liquid) and as a concentrated solution that contains more oxycodone in each milliliter of solution. Be sure that you know whether your doctor has prescribed theregular or concentrated solution and the dose in milliliters that your doctor has prescribed. Use the dosing cup, oral syringe, or dropper provided with your medication to carefully measure the number of milliliters of solution that your doctor prescribed. Read the directions that come with your medication carefully and ask your doctor or pharmacist if you have any questions about how to measure your dose or how much medication you should take. You may experience serious or life threatening side effects if you take an oxycodone solution with a different concentration or if you take a different amount of medication than prescribed by your doctor. Store oxycodone in a safe place so that no one else can take it accidentally or on purpose. Be especially careful to keep oxycodone out of the reach of children. Keep track of how many tablets or capsules, or how much liquid is left so you will know if any medication is missing. Dispose of unwantedcapsules, tablets, extended-release tablets, extended-release capsules, and liquid properly according to instructions. (See STORAGE and DISPOSAL). Tell your doctor if you are or plan to become . If you take oxycodone regularly during your , your baby may experience life- threatening withdrawal symptoms after . Tellyour baby's doctor right away if your baby experiences any of the following symptoms: irritability, hyperactivity, abnormal sleep, high-pitched cry, uncontrollable shaking of a part of the body, vomiting, diarrhea, or failure to gain weight. Talk to your doctor about the risks of taking oxycodone. Your doctor or pharmacist will give you the gift shop manager's patient information sheet (Medication Guide) when you begin your treatment with oxycodone and each time you fill your prescription. Read theinformation carefully and ask your doctor or pharmacist if you have any questions. You can also visit the Food and Drug Administration (FDA) website (https://www.fda.gov/Drugs/DrugSafety/xhm946013.htm) or the gift shop manager's website to obtain the Medication Guide. WHY is this medicine prescribed? Oxycodone immediate-release tablets, capsules, and oral solution are used to relieve severe, acute pain (pain that begins suddenly, has a specific cause, and is expected to go away when the cause of the pain is healed) in people who are expected to need an opioid pain medication and who cannot be treated with other pain medications. Oxycodone extended-release tablets and extended-release capsulesare used to relieve severe pain in people who are expected to need pain medication around the clockfor a long time and who cannot be treated with other medications. Oxycodone extended-release tablets and extended-release capsules should not be used to treat pain that can be controlled by medication that is taken as needed. Oxycodone concentrated solution should only be used to treat people who are tolerant (used to the effects of the medication) to opioid medications because they have taken this type of medication for at least one week. Oxycodone is in a class of medications called opiate (narcotic) analgesics. It works by changing the way the brain and nervous system respond to pain. Oxycodone is also available in combination with acetaminophen (Oxycet, Percocet, others) and aspirin (Percodan). This monograph only includes information about the use of oxycodone alone. If you are taking an oxycodone combination product, be sure to read information about all the ingredients in the product you are taking and ask your doctor or pharmacist for more information. HOW should this medicine be used? Oxycodone comes as a solution (liquid), a concentrated solution, a tablet, a capsule, an extended-release (long-acting) tablet (Oxycontin), and an extended- release capsule (Xtampza ER) to take by mouth. The solution, concentrated solution, tablet, and capsule are taken usually with or without food every 4 to 6 hours, either as needed for pain or as regularly scheduled medications. The extended-release tablets (Oxycontin) are taken every 12 hours with or without food. The extended-release capsules (Xtampza ER) are taken every 12 hours with food; eat the same amount of food with each dose. Follow the directions on your prescription label carefully, and ask your doctor or pharmacist to explainany part you do not understand. Take oxycodone exactly as directed. If you are taking the extended-release tablets (Oxycontin), swallow the tablets one at a time with plenty of water. Swallow the tablet or right after putting it in your mouth. Do not presoak, wet, orlick the tablets before you put them in your mouth. Do not chew or crush extended-release tablets. If you have trouble swallowing extended-release capsules (Xtampza ER), you can carefully open the capsule and sprinkle the contents on soft foods such as applesauce, pudding, yogurt, ice cream, or jam, then consume the mixture immediately. Dispose of the empty capsule shells right away by flushing them down a toilet. Do not store the mixture for future use. If you have a feeding tube, the extended-release capsule contents can be poured into the tube. Ask your doctor how you should take the medication and follow these directions carefully. Your doctor may adjust your dose of oxycodone during your treatment, depending on how well your pain is controlled and on the side effects that you experience. Talk to your doctor about how you are feeling during your treatment with oxycodone. Tell your doctor if you feel that your pain is not controlled or if your pain increases, becomes worse, or if you have new pain or an increased sensitivityto pain during your treatment with oxycodone. Do not take more of it or take it more often than prescribed by your doctor. Do not stop taking oxycodone without talking to your doctor. If you stop taking oxycodone suddenly,you may experience withdrawal symptoms such as restlessness, watery eyes, runny nose, sneezing, yawning, sweating, chills, muscle or joint aches or pains, weakness, irritability, anxiety, depression,difficulty falling asleep or staying asleep, cramps, nausea, vomiting, diarrhea, loss of appetite, fast heartbeat, and fast breathing. Your doctor will probably decrease your dose gradually. Are there OTHER USES for this medicine? This medication may be prescribed for other uses; ask your doctor or pharmacist for more information. What SPECIAL PRECAUTIONS should I follow? Before taking oxycodone, · tell your doctor and pharmacist if you are allergic to oxycodone, any other medications, or any of the ingredients in the oxycodone product you plan to take. Ask your pharmacist or check the Medication Guide for a list of the ingredients. · tell your doctor or pharmacist if you are taking the following medications or have stopped taking them within the past two weeks: isocarboxazid (Marplan), linezolid (Zyvox), methylene blue, phenelzine (Nardil), selegiline (Emsam, Zelapar), or tranylcypromine (Parnate). · The following nonprescription or herbal products may interact with oxycodone: Jesse's wort and tryptophan. Be sure to let your doctor and pharmacist know that you are taking these medications before you start taking oxycodone. Do not start these medications while taking oxycodone without discussing it with your healthcare provider. · tell your doctor if you have or have ever had any of the conditions mentioned in the IMPORTANT WARNING section, a blockage or narrowing of your stomach or intestines, or paralytic ileus (conditionin which digested food does not move through the intestines). Your doctor may tell you not to take oxycodone. · Also tell your doctor if you have or have ever had low blood pressure; seizures; adrenal insufficiency (condition in which the adrenal glands do not produce enough of certain hormones needed for important body functions); seizures; urethral stricture (blockage of the tube that allows urine to leave the body), problems urinating; or heart, kidney, liver, pancreas, thyroid, or gall bladder disease. If you will be taking the extended-release tablets or extended-release capsules, also tell your doctor if you have or have ever had difficulty swallowing, diverticulitis (condition in which small pouches form in the intestines and become swollen and infected), colon cancer (cancer that begins inthe large intestine), or esophageal cancer (cancer that begins in the tube that connects the mouth and stomach). · tell your doctor if you are . You should not breastfeed while you are taking oxycodone. Oxycodone can cause shallow breathing, difficulty or noisy breathing, confusion, more than usual sleepiness, trouble , or limpness in breastfed infants. · you should know that this medication may decrease fertility in men and women. Talk to your doctor about the risks of taking oxycodone. · if you are having surgery, including dental surgery, tell the doctor or dentist that you are taking oxycodone. · you should know that this medication may make you drowsy. Do not drive a car, operate heavy machinery, or participate in any other possibly dangerous activities until you know how this medication affects you. · you should know that oxycodone may cause dizziness, lightheadedness, and fainting when you get up too quickly from a lying position. To help avoid this problem, get out of bed slowly, resting yourfeet on the floor for a few minutes before standing up. · you should know that oxycodone may cause constipation. Talk to your doctor about changing your diet or using other medications to prevent or treat constipation while you are taking oxycodone. What SPECIAL DIETARY instructions should I follow? Unless your doctor tells you otherwise, continue your normal diet. What should I do IF I FORGET to take a dose? If you are taking oxycodone on a regular schedule, take the missed dose as soon as you remember it.However, if it is almost time for the next dose, skip the missed dose and continue your regular dosing schedule. Do not take a double dose to make up for a missed one. Do not take more than one dose of the extended- release tablets or capsules in 12 hours. What SIDE EFFECTS can this medicine cause? Some side effects can be serious. If you experience any of these symptoms or those mentioned in theIMPORTANT WARNING section, call your doctor immediately or get emergency medical help: · changes in heartbeat · agitation, hallucinations (seeing things or hearing voices that do not exist), fever, sweating, confusion, fast heartbeat, shivering, severe muscle stiffness or twitching, loss of coordination, ordiarrhea · nausea, vomiting, loss of appetite, weakness, or dizziness · inability to get or keep an erection · irregular menstruation · decreased sexual desire · chest pain · rash; itching; hives; hoarseness; difficulty breathing or swallowing; or swelling of the face, mouth, tongue, lips, or throat · swelling of the hands, feet, ankles, or lower legs · seizures · extreme drowsiness If you experience a serious side effect, you or your doctor may send a report to the Food and Drug Administration's (FDA) MedWatch Adverse Event Reporting program online (https://www.fda.gov/Safety/MedWatch) or by phone ( ). Oxycodone may cause other side effects. Call your doctor if you have any unusual problems while youare taking this medication. What should I know about STORAGE and DISPOSAL of this medication? Keep this medication in the container it came in, tightly closed, and out of reach of children, andin a location that is not easily accessible by others, including visitors to the home. Store it at room temperature and away from light and excess heat and moisture (not in the bathroom). You must immediately dispose of any medication that is outdated or no longer needed through a medicine take-back program. If you do not have a take-back program nearby or one that you can access promptly, flush any medication that is outdated or no longer needed down the toilet so that others will not take it.Talk to your pharmacist about the proper disposal of your medication. It is important to keep all medication out of sight and reach of children as many containers (such as weekly pill minders and those for eye drops, creams, patches, and inhalers) are not child-resistant and young children can open them easily. To protect young children from poisoning, always lock safety caps and immediately place the medication in a safe location - one that is up and away and out of their sight and reach. https://www.upandaway.org What should I do in case of OVERDOSE? In case of overdose, call the poison control helpline at . Information is also available online at https://www.poisonhelp.org/help. If the victim has collapsed, had a seizure, has trouble breathing, or can't be awakened, immediately call emergency services at 320. While taking oxycodone, you should talk to your doctor about having a rescue medication called naloxone readily available (e.g., home, office). Naloxone is used to reverse the life-threatening effects of an overdose. It works by blocking the effects of opiates to relieve dangerous symptoms caused by high levels of opiates in the blood. Your doctor may also prescribe you naloxone if you are livingin a household where there are small children or someone who has abused street or prescription drugs. You should make sure that you and your family members, caregivers, or the people who spend time with you know how to recognize an overdose, how to use naloxone, and what to do until emergency medical help arrives. Your doctor or pharmacist will show you and your family members how to use the medication. Ask your pharmacist for the instructions or visit the gift shop manager's website to get the instructions. If symptoms of an overdose occur, a caregiver or family member should give the first dose of naloxone, call 911 immediately, and stay with you and watch you closely until emergency medical help arrives.Your symptoms may return within a few minutes after you receive naloxone. If your symptoms return, the person should give you another dose of naloxone. Additional doses may be given every 2 to 3 minutes, if symptoms return before medical help arrives. Symptoms of overdose may include the following: · difficulty breathing · slowed or shallow breathing · excessive sleepiness · limp or weak muscles · narrowing or widening of the pupils (dark chalkyitsik in the eye) · cold, clammy skin · unable to respond or wake up · slowed heartbeat · unusual snoring What OTHER INFORMATION should I know? Keep all appointments with your doctor. Your doctor may order certain lab tests to check your body's response to oxycodone. Before having any laboratory test (especially those that involve methylene blue), tell your doctor and the laboratory personnel that you are taking oxycodone. This prescription is not refillable. If you continue to have pain after you finish the oxycodone, call your doctor. It is important for you to keep a written list of all of the prescription and nonprescription (sztb-ipn-[id number]) medicines you are taking, as well as any products such as vitamins, minerals, or otherdietary supplements. You should bring this list with you each time you visit a doctor or if you areadmitted to a hospital. It is also important information to carry with you in case of emergencies. This report on medications is for your information only, and is not considered individual patient advice. Because of the changing nature of drug information, please consult your physician or pharmacist about specific clinical use. The [employer] represents that the information provided hereunder was formulated with a reasonable standard of care, and in conformity with professional standards in the field. The [employer] makes no representations or warranties, express or implied, including, but not limited to, any implied warranty of merchantability and/or fitness for a particular purpose, with respect to such information and specifically disclaims all such warranties. Users are advised that decisions regarding drug therapy are complex medical decisions requiring the independent, informed decision of an appropriate health care coordinator, and the information is provided for informational purposes only. The entire monograph for a drug should be reviewed for a thorough understanding of the drug's actions, uses and side effects. The [employer] does not endorse or recommend the use of any drug.The information is not a substitute for medical care. FS® Patient Medication Information?. © 2023. [employer]®, [address] [facility], [address], [place], [place]. All Rights Reserved. Duplication for commercial use must be authorized by [facility]. Selected Revisions: January 02, 2024. FS® Patient Medication Information?. © Copyright, 2024 * Care Plan - Trent Wills RN - 01/22/2025 5:03 AM EDT Clinical Goal(s): lightheadedness, dizziness, or worsening vision (01/21/25 2300) Possible barriers to meeting goal(s)/advancing plan of care: Hypotension Stability of the patient: Moderately stable - low risk of patient condition declining or worsening Summary regarding today's goal(s): Met: Patient denies any lightheadedness, dizziness, or worsening vision Recommendations: Q4H vital signs * Pt Handout (on AVS) - Lara Rick RN - 01/21/2025 2:00 AM EDT Images from the original note were not included. [id number] Understanding Carotid Angioplasty and Stenting Angioplasty and stenting is a type of procedure to improve the blood flow in an artery or vein. Thecarotid arteries are 2 large arteries on either side of your neck. During the procedure, healthcareproviders use a thin tube with a balloon at its tip to open up the artery. A tiny metal mesh tube called a stent is put into the artery. It's left in place to help keep the artery open. This is a mini jailene invasive procedure. That means it?s done with a small incision. Why is carotid angioplasty and stenting done? You have 2 carotid arteries. There's 1 on each side of your neck. These arteries send oxygen-rich blood to your neck, face, and brain. A condition called carotid artery stenosis means that one of these arteries is narrowed. It can?t send as much blood as it should. Carotid angioplasty and stenting can help reopen this artery. Carotid stenosis is often caused by the buildup of plaque on the inside of the artery. This is known as atherosclerosis. Certain things can raise your risk for carotid stenosis. These include: · Smoking · High blood pressure · High cholesterol · Diabetes · Obesity · Aging If you have mild carotid artery stenosis, your healthcare provider may give you medicines to reduceyour risk for stroke. If you have more severe blockage, your provider is more likely to advise a procedure to open the artery. Your provider is also more likely to advise a procedure if you have already had a stroke or ministroke. Carotid angioplasty and stenting is one option. Another is a surgery called carotid endarterectomy.This surgery removes plaque and any damaged part of the artery. Carotid angioplasty and stenting isless invasive. That means it uses only a small incision. Because of this, you may recover faster. It also avoids the risks of general anesthesia. Talk with your provider about the risks and benefits of each procedure for you. How is carotid angioplasty and stenting done? The procedure will likely be done by a healthcare provider trained in vascular medicine. They will work with a team of special nurses and technicians. The provider makes a small cut (incision) in a blood vessel in your groin. They then put a long, thin wire into this cut. The provider then inserts a thin, flexible tube (catheter) over the wire. It has a tiny, deflated balloon on the end. The provider threads the catheter up into the carotid artery in your neck. There, the provider inflates the balloon inside the narrow part of the carotid artery. This stretches the area open. You may also geta mesh tube called a stent in the narrowed area. This helps keep the area open. Risks of carotid angioplasty and stenting All procedures have risks. The risks of this procedure include: · Infection · Heavy bleeding · Artery injury · Allergic reaction to contrast material · Kidney damage · Stroke · Heart attack · Sudden vessel closure · Low blood pressure · Heart arrhythmias · Return of the blockage Your risks may vary based on your overall health, the severity of your condition, and other factors. You may have an increased risk for complications if you: · Have symptoms from your carotid stenosis · Have had a stroke or ministroke · Have other health conditions such as diabetes Ask your healthcare provider about which risks apply most to you. Last Reviewed Date: 2022 00:00:00 [employer]. All rights reserved. This information is not intended as a substitute for professional medical care. Always follow your healthcare professional's instructions. * Pt Handout (on AVS) - Lara Rick RN - 01/21/2025 1:59 AM EDT Images from the original note were not included. [id number] Having Carotid Angioplasty and Stenting Angioplasty and stenting is a procedure to improve the blood flow in an artery or vein. The carotidarteries are large arteries inside each side of your neck. During the procedure, healthcare providers use a thin tube with a balloon at its tip to open up the artery. This is called angioplasty. A tiny mesh tube called a stent is then put into the artery. It's left in place to help keep the artery o pen. This is a minimally invasive procedure. It's done with a small cut (incision) usually in your groin. What to tell your healthcare provider Before the procedure, make sure to tell the medical team if you: · Have had any recent changes in your health, such as a fever · Are or could be · Are allergic to shellfish, iodine, or any other substance · Have ever had a bad reaction to contrast dye · Have ever had a problem with medicine that helps you relax (sedation) Tests before your procedure You may need some tests before the procedure, such as: · Blood tests, to check for anemia and infection · An electrocardiogram (ECG), to check your heart rhythm · A chest X-ray, to look at your heart and lungs · Ultrasound of your neck, to look at the carotid artery · CT angiogram of the blood vessels of your neck and head Getting ready for your procedure Talk with your healthcare provider about how to get ready. Tell them about all the medicines you take. This includes spnb-ayj-kolkwxr medicines such as aspirin, vitamins, and other supplements. You may need to stop taking some medicines, such as blood thinners, ahead of time. If you smoke, you?ll need to stop before your procedure. Nicotine from any source (cigarettes, e-cigarettes, patches, chewing tobacco) slows healing. Talk with your healthcare provider if you need help to stop smoking. Follow any directions you are given for not eating or drinking before your procedure. Your healthcare provider may give you more instructions about how to get ready. On the day of your procedure Talk with your healthcare provider about what to expect. The procedure will likely be done by a healthcare provider trained in vascular medicine and a team of specialized nurses. A typical procedure may go like this: · An IV (intravenous) tube will be put in your arm or hand before the procedure starts. You?ll be given sedation through the IV tube. This will make you relaxed and sleepy during the procedure. · Hair in the area of your procedure may be removed. The area may be numbed with a local anesthesia. · The healthcare provider will make a small incision in a blood vessel in your groin. They will then put a long, thin wire into this cut. The wire acts as a guide during the procedure. · The healthcare provider will then insert a thin, flexible tube (catheter) over the wire. It has a tiny deflated balloon on the end. The catheter will be threaded through the blood vessel all the way into the carotid artery in your neck. Continuous X-ray images may be used to show exactly where the catheter is. · The healthcare provider will inflate the balloon inside the narrow part of the carotid artery. This will stretch the area open. · A mesh tube called a stent may be left in place in the area. This will help keep the area open. · The healthcare provider will deflate the balloon and remove the catheter. · The healthcare provider will close and bandage the incision site in the groin. After your procedure After the procedure, you will spend several hours in a recovery room. You may be sleepy when you wake up. Your healthcare team will watch your heart rate and breathing. You?ll be given pain medicine if you need it. You may need to lie flat without bending your legs for several hours after the procedure. This is to help prevent bleeding from the incision site. You may be able to go home the same day. Or you may need to stay in the hospital overnight. Your healthcare provider will tell you what to expect. When you?re ready to go home, you?ll need to have a family member or friend drive you. Recovering at home Your healthcare provider may prescribe medicines to help prevent blood clots or spasm of your bloodvessels. Follow all of your healthcare provider?s instructions. This includes any advice about medicines, exercise, and wound care. The post-procedure medicines are very important. Don't skip or adjust the dose. Call your healthcare provider if you have medicine questions. You may have some pain after the procedure. You may have a bruise and swelling where the catheter was inserted in your groin.You can take nhhs-jjk-qxevzug pain medicines if you need to. Get some rest. Don't do any strenuous exercise for at least 24 hours. Follow-up care If you had symptoms from your carotid stenosis, these should go away after the procedure. In follow-up appointments, your healthcare provider will talk with you about your continued care. This includes ways to lower your risk for atherosclerosis. You also may need follow-up blood tests or imaging of your neck. When to call your healthcare provider Call your healthcare provider right away if you have any of these: · Fever of 100.4°F (38.0°C) or higher, or as advised by your healthcare provider · Swelling or pain at the incision site gets worse · Fluid or blood leaking from the incision site · Redness or warmth at the incision site · The limb that was used for the puncture site is cold, painful, numb, tingling, changes color, orhas loss of function · New symptoms or symptoms get worse · Chest pain or trouble breathing (Call 911) Call 911 right away if you have any of the following symptoms of stroke: · Weakness, tingling, or loss of feeling on one side of your face or body · Sudden double vision or trouble seeing in one or both eyes · Sudden trouble talking or slurred speech · Trouble understanding others · Sudden, severe headache · Dizziness, loss of balance, or a sense of falling · Blackouts or seizures B.E. F.A.S.T. is an easy way to remember the signs of stroke. When you see these signs, you know that you need to call 911 fast. B.E. F.A.S.T. stands for: · B is for balance. Sudden loss of balance or coordination. · E is for eyes. Vision changes in one or both eyes. · F is for face drooping. One side of the face is drooping or numb. When the person smiles, the smile is uneven. · A is for arm weakness. One arm is weak or numb. When the person lifts both arms at the same time, one arm may drift downward. · S is for speech difficulty. You may notice slurred speech or trouble speaking. The person can't repeat a simple sentence correctly when asked. · T is for time to call 911. If someone shows any of these symptoms, even if they go away, call 911 right away. Make note of the time the symptoms first appeared. Last Reviewed Date: 2024 00:00:00 © [employer]. All rights reserved. This information is not intended as a substitute for professional medical care. Always follow your healthcare professional's instructions. * Pt Handout (on AVS) - Lara Rick RN - 01/21/2025 1:59 AM EDT [id number] Discharge Instructions for Carotid Artery Stenting When you get home after your procedure, do the following: · Watch the injection site for bleeding. A small bruise is normal. So is an occasional drop of blood at the site. · Watch the limb that was used for changes in temperature, color, numbness, tingling, or loss of function. · Take your prescribed antiplatelet medicines as directed. These medicines will help prevent bloodclots from forming on the stent. But they may cause you to bruise more easily. · Shower instead of taking tub baths for a few days. But wait for your healthcare provider?s OK toget the wound wet first. · Don't lift anything over 10 pounds for a few days. · Take it easy. But try to get back to your normal routine as much as possible. · Ask your healthcare provider about when you can drive, return to work, and do other activities. When to call your healthcare provider Call your healthcare provider right away if you have any of these: · Problems at the incision site, such as swelling, redness, bleeding, warmth, leaking of fluids, or increasing pain · The limb that was used for the puncture site is cold, changes color, painful, numb, tingling, orhas loss of function · Fever of 100.4°F (38.0°C) or higher, or as advised by your provider · Chest pain or trouble breathing (Call 911) · New or worsening symptoms Go to the emergency room if your healthcare provider?s office is closed. Your follow-up Within a month after the procedure, you?ll have a follow-up exam and tests. These tests may includean ultrasound and a brain function exam. Then you?ll be monitored with ultrasound or another imaging test every 6 months for 1 to 2 years. After that, you?ll be monitored at least every 12 months. You may also keep taking antiplatelet medicine. In some cases, the carotid artery can narrow again. Ifthis happens, it can often be treated again with balloon angioplasty. Call 911 Call 911 right away if you have any of the following symptoms of stroke: · Weakness, tingling, or loss of feeling on one side of your face or body · Sudden double vision or trouble seeing in one or both eyes · Sudden trouble talking or slurred speech · Trouble understanding others · Sudden, severe headache · Dizziness, loss of balance, or a sense of falling · Blackouts or seizures B.E. F.A.S.T. is an easy way to remember the signs of stroke. When you see these signs, you know that you need to call 911 fast. B.E. F.A.S.T. stands for: · B is for balance. Sudden loss of balance or coordination. · E is for eyes. Vision changes in one or both eyes. · F is for face drooping. One side of the face is drooping or numb. When the person smiles, the smile is uneven. · A is for arm weakness. One arm is weak or numb. When the person lifts both arms at the same time, one arm may drift downward. · S is for speech difficulty. You may notice slurred speech or trouble speaking. The person can't repeat a simple sentence correctly when asked. · T is for time to call 911. If someone shows any of these symptoms, even if they go away, call 911 right away. Make note of the time the symptoms first appeared. Last Reviewed Date: 2022 00:00:00 [employer]. All rights reserved. This information is not intended as a substitute for professional medical care. Always follow your healthcare professional's instructions. * Pt Handout (on AVS) - Lara Rick RN - 01/21/2025 1:59 AM EDT Images from the original note were not included. [id number] Having Carotid Artery Stenting Understanding carotid artery stenting Carotid artery stenting is a procedure to open up a narrowed carotid artery. Two carotid arteries on each side of the neck deliver blood to the brain. A stent is a tiny, metal mesh coil. It props open the artery so blood can flow freely. During the procedure, the healthcare provider puts a long thin tube (catheter) into an artery. This lets the provider move tools through the artery to put the stent in place. Stenting is often done with a procedure called angioplasty. For angioplasty, the provider inflates a tiny balloon at the tip of the catheter at the blocked part of the artery. The inflated balloon presses the plaque against the artery wall. This opens the artery for better blood flow. The provider then places the stent to help keep the artery open. Why is carotid artery stenting done? Carotid artery stenting is done to restore blood flow to the brain to prevent stroke. A stroke can occur if the artery becomes narrowed. Or if a blood clot forms in the artery. This can block blood flow to part of the brain. How is carotid artery stenting done? Your provider will need to talk to you during the procedure, so you?ll be awake the entire time. Putting in the catheter · A surgical freight team associate will clean the skin in the area of the insertion site with an antisepticliquid. Your doctor will numb it with local anesthesia. · The provider will make a small hole (puncture). It's usually in the femoral artery in the groin.Or they may use an arm or even neck artery. · The provider will put an introducer sheath or tube into the puncture. · The provider puts the catheter into the sheath. Using X-rays as a guide, the provider moves the catheter through the sheath and up through the aorta and into the carotid artery. · You will have an angiogram of the carotid artery. A carotid angiogram is a test that uses X-raysand a special fluid (contrast medium or dye). It helps your provider find blockages or other problems in the carotid arteries. Your provider injects the contrast dye into the artery to show where thenarrowed portion is on X-ray. You may feel warmth toward your head just after the dye is injected. You may also think you see some flashing lights. This is normal and will only last for a few seconds. Let your provider know right away if it continues. Placing the filter A filter or other protective device prevents pieces of plaque from being carried downstream into the brain and causing a stroke. The provider uses the catheter to place the unopened filter in the artery. They move the filter past the narrowed area. They then open the filter. It stays in place for the whole procedure. If the narrowing is very severe, your provider may need to widen the artery before the filter is put in place. Opening the artery The provider will open or expand the narrowed artery if the narrowing is too tight to allow the stent to pass through. This is done using balloon angioplasty: · The provider guides an uninflated balloon-tipped catheter to the area that needs to be widened. · They then inflate the balloon. This pushes the artery open. The balloon may need to be inflated and deflated several times to open the artery enough. · After the procedure is done, the provider deflates and removes the balloon. Placing the stent · A stent is a metal mesh coil that is used to expand a narrow artery and keep it open. · The provider guides the stent through the catheter to the site of the narrowing. They then expand the stent using balloon angioplasty. You may feel a slight pain in your neck during the balloon angioplasty. · Your provider then removes the catheter and balloon. They leave the stent in place. Checking the result You will have another angiogram to compare with the one taken at the start of the procedure. This is to see if the blood flow has improved. Once your provider is satisfied with the result, they will remove the filter and other tools and close the insertion site. Risks and possible complications The risks of this procedure include: · Stroke · Bleeding at the puncture site · Headache · Bleeding into the brain · Blood clot at the puncture site · Low blood pressure · Blood clot in the treated vessel · Reaction to contrast fluid · Heart rhythm problems, such as slow heart rate · Reblockage of the artery and possible need to get treatment again · Kidney damage · Heart attack · Last Reviewed Date: 2024 00:00:00 © [employer]. All rights reserved. This information is not intended as a substitute for professional medical care. Always follow your healthcare professional's instructions. * Pt Handout (on AVS) - Lara Rick RN - 01/21/2025 1:58 AM EDT Images from the original note were not included. [id number] Discharge Instructions for Carotid Endarterectomy A carotid endarterectomy is a surgery that restores normal blood flow through the vessels that carry blood to your brain. These vessels are called the carotid arteries. The surgeon made a small cut (incision) in the side of your neck, just below your jaw. The artery was opened and the blockage was cleared. This procedure was done to reduce your risk of a stroke. A stroke can occur when the carotid arteries are severely blocked or narrowed. Ask a friend or family member to help with chores. Home care · Spend your first few days after surgery resting at home. You can do quiet activities such as reading or watching TV. · Take your medicines exactly as instructed. Don?t skip doses. · Check your incision every day for signs of infection. These include redness, swelling, drainage,or warmth. · Keep the wound dry until your health care provider says it's OK to shower. Don't scrub your incision. · Shave carefully around your incision. You may want to use an electric razor. · Know that you may have some loss of feeling along your jaw line, the incision line, and earlobe.This is a result of the incision. Feeling should come back in 6 to 12 months. · Slowly increase your activity. It may take some time for you to return to your normal activities. · Don't do strenuous activity for 7 to 10 days after your surgery. · Don?t lift anything heavier than 10 pounds for 2 to 3 weeks after your surgery. · Don?t drive until your health care provider says it?s OK. This will most likely be 1 to 2 weeks. · Ask your health care provider when you can expect to return to work. Long-term changes at home · Eat a healthy diet. Make sure your diet is low in saturated fat, cholesterol, and sodium. Also make sure you're getting the right amount of calories for you. Ask your health care provider for menus and other diet help. · Maintain a healthy body weight. · After you recover from surgery, try to exercise more. Do as much walking as you can. Ask your health care provider for more tips. · If you smoke, ask your health care provider for help quitting. Follow-up care Make a follow-up appointment as directed. When to call your health care provider Call your health care provider right away if: · You have neck swelling. · You have redness, pain, swelling, or fluid leaking from your incision. · You have a fever above 100.4°F (38°C) or higher, or as directed by your health care provider. When to call 911 A stroke is a medical emergency. Call 911 right away if you have any of these symptoms of a stroke: · Weakness, tingling, or loss of feeling on one side of your face or body · Sudden double vision in or trouble seeing with one or both eyes · Sudden trouble talking or slurred speech · Sudden, severe headache B.E. F.A.S.T. is an easy way to remember the signs of a stroke. When you see these signs, call 911 fast. B.E. F.A.S.T. stands for: · B is for balance. Sudden loss of balance or coordination. · E is for eyes. Vision changes in one or both eyes. · F is for face drooping. One side of the face is drooping or numb. When the person smiles, the smile is uneven. · A is for arm weakness. One arm is weak or numb. When the person lifts both arms at the same time, one arm may drift downward. · S is for speech difficulty. Slurred speech or trouble speaking. The person can't repeat a simplesentence correctly when asked. · T is for time to call 911. If someone shows any of these symptoms, even if they go away, call 911 right away. Make note of the time the symptoms first appeared. Last Reviewed Date: 2024 00:00:00 © 8455-2056 [employer]. All rights reserved. This information is not intended as a substitute for professional medical care. Always follow your healthcare professional's instructions. * Pt Handout (on AVS) - Lara Rick RN - 01/21/2025 1:58 AM EDT Images from the original note were not included. [id number] Having Carotid Endarterectomy Carotid endarterectomy is a surgery to remove plaque from the carotid artery and improve blood flowto the brain. This surgery has a low risk for stroke (2% to 3%) in those with no pre-surgery symptoms. It often has a quick recovery with little pain. You may be asleep under general anesthesia. Or you may be awake with sedation and local anesthesia to control pain. Your surgeon will discuss which is a better option for you before your surgery. How the endarterectomy is done A skin incision is made over the carotid artery. A shunt helps keep blood flowing during the procedure. 1. Make the skin incision. The surgeon makes a cut (incision) in the skin over the carotid artery in the neck. 2. Open the artery. The surgeon places clamps on the artery above and below the blockage. This temporarily stops blood flow. The brain receives blood from the carotid artery on the other side of yourneck. The surgeon then makes an incision in the artery itself. 3. Place the shunt. A shunt may be used to preserve blood flow to the brain during the procedure. After the shunt is in place, the clamps are removed from the internal carotid artery. In some cases ashunt is not needed because the brain is receiving enough blood through the carotid artery on the other side of your neck. 4. Remove plaque. The surgeon loosens plaque from the artery wall. The plaque is then removed, often in a single piece. The surgeon looks at the artery to confirm that all of the plaque has been removed. 5. Close the incision. The surgeon closes the incision using either sutures or a patch. The clamps are then removed. Next, the skin incision is sutured closed. A tube or drain may be put in place to keep fluids from collecting around the area. The surgery usually takes around 2 hours. But it may take longer depending on the anesthesia and your situation. Last Reviewed Date: 2024 00:00:00 © [employer]. All rights reserved. This information is not intended as a substitute for professional medical care. Always follow your healthcare professional's instructions. * Communication - Ras Francis MD - 01/20/2025 11:40 PM EDT Checked patient around 10:30 PM. She was resting comfortable in the bed. She said she was doing great. Denied any pain, dizziness, headache, nausea, vomiting. She also said her vision was the same BP 95/48 | Pulse 78 | Temp 36.7 °C (98 °F) (Tympanic) | Resp 18 | Ht 1.524 m (5') | Wt 59.7 kg (131 lb 11.2 oz) | SpO2 100% | BMI 25.72 kg/m² | BSA 1.59 m² Physical examination revealed gross intact sensation and motor function. CN examination: CN 3, 4, 6 - Extra-ocular Movements Intact,no nystagmus CN 5 - Facial sensation intact and equal bilaterally CN 7 - no facial assymetry CN 9, 10, 12 - tongue and uvula midline CN 11- good shoulder shrug L neck, soft, nontender, no hematoma, dressing with minimal strike though - c/w current management plan Ras Francis MD General Surgery Resident, PGY-1 [facility] * Progress Notes - Non-Billable - Gabriel Soto MD - 01/20/2025 1:11 PM EDT VASCULAR SURGERY POST-OPERATIVE PROGRESS [place] [facility] [id number] Name: Clotilde Pope Location: [place] [facility] Date: 01/20/2025 Time: 1:11 PM DATE OF SURGERY: 01/20/2025 POST OP DAY: Day of Surgery - POC SUBJECTIVE: No acute events postop, patient is resting comfortably. Pain is well-controlled. Denieschest pain, shortness of breath, headaches, or vision changes from baseline. No focal neurological deficit. OBJECTIVE: Most Recent Vital Signs: BP: 92 mmHg/39 mmHg (01/20/25 1300) Pulse: 81 (01/20/25 1300) Resp: 19 (01/20/25 1300) Temp: 36.28 C (01/20/25 1100) Temp Summary: Temp Min: 36 °C (96.8 °F) Max: 36.5 °C (97.7 °F) SpO2: 99 % (01/20/251299) O2 flow rate: Supplemental O2 Delivery: Room Air, None (01/20/251299) Vital Signs Last 24 Hours: Most Recent Systolic BP Av mmHg Min: 72 mmHg Max: 116 mmHg Most Recent Temperature Av.3 C Min: 36 C Max: 36.5 C Pulse Av.9 Min: 75 Max: 93 Resp Av.6 Min: 14 Max: 26 SpO2 Av.3 % Min: 96 % Max: 100 % Intake/Output Summary (Last 24 hours) at 01/20/2025 1311 Last data filed at 01/20/2025 1002 Gross per 24 hour Intake 1600 ml Output 300 ml Net 1300 ml Physical Exam: Constitutional: No acute distress HEENT: Normocephalic, Cardiac: Normal sinus rhythm. Resp: Satting well on RA Abdomen/Pelvis: soft non tender Neuro: gross sensation and motor function intact bilaterally UE/LE, CN intact, tongue midline, no facial asymmetry Vascular: L neck, soft, nontender, no hematoma, dressing with minimal strike though LABS: Lab results within last 7 days (see chart for full results) Units 01/20/25 1050 01/18/25 1305 WBC K/uL 10.30 7.31 HGB g/dL 11.2* 14.2 PLT K/uL 209 223 SODIUM mmol/L 137 139 POTASSIUM mmol/L 4.2 4.4 CHLORIDE mmol/L 105 103 CO2 mmol/L 18* 25 BUN mg/dL 11 14 CREATININE mg/dL 0.7 0.8 CALCIUM mg/dL 7.4* 9.7 Recent Cultures (2 Weeks) No lab values to display. IMPRESSION and PLAN: 79 year old female s/p L CEA, retrograde L CCA VBC stent x3 - ASA, Plavix, statin - SBP <160 - EKG, troponin - NPO, may advance diet as tolerated this PM - postop Abx - subq hep dvt ppx Gabriel Soto MD Vascular Surgery Resident documented in this encounter Plan of Treatment Upcoming Encounters Date Type Department Care Team (Late st Contact Info) Description 01/28/2025 8:30 AM EDT Imaging Vascular Lab, [facility] 2nd Floor, [place] [address] [place] [phone] 02/09/2025 1:50 PM EDT Office Visit Vascular Surgery, [facility] [address] [place] [phone] Servando Rees MD [address] [place] [address] 02/16/2025 2:15 PM EDT Office Visit Ophthalmology, [facility] [address] [place] [phone] Rico Harrison DO [address] [place] [address] 02/22/2025 1:00 PM EDT Office Visit General Internal Medicine [facility] [address] [facility] [place] [address] Kia Goetz MD [address] [facility] [place] [address] Scheduled Orders Name Type Priority Associated Diagnoses Orde r Schedule EKG EKG STAT Chest pain Perform Now for 1 Occurrences starting 01/20/2025 until 01/20/2025 EKG EKG STAT Chest pain One Time for 1 Occurrences starting 01/21/2025 until 01/21/2025 Scheduled Referrals Name Type Priority Associated Diagnoses Orde r Schedule CARDIOLOGY REFERRAL OP Referral Within 10 days (routine) Coronary artery disease involving [place] coronary artery of [place] heart without angina pectoris Ordered: 01/21/2025 Health Maintenance Due Date Last Done Comments DISCUSS TOBACCO CESSATION (REFER TO SMARTSET #9247) 1945 Depression Screening 1959 Alpha-1 Antitrypsin 1965 [...] this encounter Medical Devices Implanted Type Area Bass Mechanism Maker Device Identifier Shelf Expiration Date Model / Serial / Lot Patch Xenosure [id number] - [id number] - [id number] Implanted:Qty: 1 on 01/20/2025 by Servando Rees MD at [facility] Left: Carotid [employer] [id number] 02/14/2030 E0.8P8 / [id number] / [id number] Graft Stent Balloon Expandable Endoprosthesis , 7 Mm 39 Mm 6 Fr 135 Cm Cath Heparin - [id number] Implanted:Qty: 1 on 01/20/2025 by Servando Rees [place] [facility] Left: Carotid [employer] [id number] 05/08/2027 [id number] / [id number] / [id number] Graft Stent Balloon Expandable Endoprosthesis , 7 Mm 39 Mm 6 Fr 135 Cm Cath Heparin - [id number] Implanted:Qty: 1 on 01/20/2025 by Servando Rees [place] [facility] Left: Carotid [employer] [id number] 12/11/2026 [id number] / [id number] / [id number] Graft Stent Balloon Expandable Endoprosthesis , 7 Mm 29 Mm 6 Fr 135 Cm Cath Heparin - [id number] Implanted:Qty: 1 on 01/20/2025 by Servando Rees MD [place] [facility] Left: Carotid [employer] [id number] 07/16/2027 [id number] / [id number] / [id number] documented as of this encounter Procedures Procedure Name Priority Date/Time Associated Diagnosis Comments BASIC METABOLIC PANEL STAT 01/22/2025 5:12 AM EDT CBC STAT 01/22/2025 5:12 AM EDT TROPONIN T, HIGH SENSITIVITY Add-on 01/21/2025 4:08 AM EDT BASIC METABOLIC PANEL STAT 01/21/2025 4:08 AM EDT IRON SCREEN, INCLUDING TIBC Add-on 01/21/2025 4:08 AM EDT CBC STAT 01/21/2025 4:08 AM EDT TROPONIN T, HIGH SENSITIVITY STAT 01/20/2025 1:52 PM EDT P2Y12 INHIBITOR REACTIVITY (CLOPIDOGREL), VERIFYNOW STAT 01/20/2025 1:22 PM EDT VASC PROCEDURE IN VASCULAR ANGIO SUITE Routine 01/20/2025 12:24 PM EDT EXTRA LIGHT BLUE TOP Routine 01/20/2025 11:18 AM EDT EXTRA LIGHT BLUE TOP Routine 01/20/2025 11:18 AM EDT EXTRA TUBES Routine 01/20/2025 11:18 AM EDT EXTRA LIGHT BLUE TOP Routine 01/20/2025 10:50 AM EDT EXTRA LIGHT BLUE TOP Routine 01/20/2025 10:50 AM EDT EXTRA TUBES Routine 01/20/2025 10:50 AM EDT TROPONIN T, HIGH SENSITIVITY STAT 01/20/2025 10:50 AM EDT BASIC METABOLIC PANEL STAT 01/20/2025 10:50 AM EDT PT INR Routine 01/20/2025 10:50 AM EDT CBC STAT 01/20/2025 10:50 AM EDT HC ECG TRACING ONLY STAT 01/20/2025 1 0:44 AM EDT Chest pain XR CHEST 1 VIEW Routine 01/20/2025 10:43 AM EDT Shortness of breath ACT, POINT OF CARE MALIKA 01/20/2025 9: 56 AM EDT ACT, POINT OF CARE MALIKA 01/20/2025 8: 22 AM EDT ABO/RH STAT 01/20/2025 6:41 AM EDT TYPE AND SCREEN Routine 01/20/2025 6:41 AM EDT GLUCOSE METER, POINT OF CARE MALIKA 01/20/2025 6:38 AM EDT IR Stent Placement Thoracic Carotid/Innominate Retrograde 01/20/2025 6:30 AM EDT 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 SODIUM 140 135 - 146 mmol/L 01/22/2025 6:21 AM EDT [facility] POTASSIUM 4.3 3.5 - 5.1 mmol/L 01/22/2025 6:21 AM EDT [facility] CHLORIDE 104 98 - 107 mmol/L 01/22/2025 6:21 AM EDT [facility] CO2 25 22 - 32 mmol/L 01/22/2025 6:21 AM EDT [facility] ANION GAP 11 7 - 15 mmol/L 01/22/2025 6:21 AM EDT [facility] GLUCOSE 118 70 - 120 mg/dL 01/22/2025 6:21 AM EDT [facility] CALCIUM 8.2(L) 8.4 - 10.2 mg/dL 01/22/2025 6:21 AM EDT [facility] Blood Venous blood specimen / Unknown Venipuncture / Unknown 01/22/2025 5:12 AM EDT 01/22/2025 5:39 AM EDT us Talita Wang MD LAB BLOOD ORDERABLES Final Resu lt [facility] [address] [place] [address] * (ABNORMAL) CBC (01/22/2025 5:12 AM EDT) WBC 8.95 4.00 - 10.80 K/uL 01/22/2025 6:01 AM EDT [facility] RBC 3.33 3.85 - 5.15 M/uL 01/22/2025 6:01 AM EDT [facility] HGB 9.5(L) 12.0 - 15.3 g/dL 01/22/2025 6:01 AM EDT [facility] HCT 31.0(L) 36.0 - 45.2 % 01/22/2025 6:01 AM EDT [facility] MCV 93.1 81.5 - 97.5 fL 01/22/2025 6:01 AM EDT [facility] MCH 28.5 27.0 - 34.0 pg 01/22/2025 6:01 AM EDT [facility] MCHC 30.6 32.0 - 36.0 g/dL 01/22/2025 6:01 AM EDT [facility] RDW 14.6 11.5 - 15.5 % 01/22/2025 6:01 AM EDT [facility] PLT 182 140 - 400 K/uL 01/22/2025 6:01 AM EDT [facility] MPV 10.5 6.6 - 11.1 fL 01/22/2025 6:01 AM EDT LABORATORY GM nRBCs 0 <=0 /100 WBCs 01/22/2025 6:01 AM EDT LABORATORY GM Blood Venous blood specimen / Unknown Venipuncture / Unknown 01/22/2025 5:12 AM EDT 01/22/2025 5:39 AM EDT us Talita Wang MD LAB BLOOD ORDERABLES Final Resu lt [facility] [address] [place] [id number] * IRON SCREEN, INCLUDING TIBC (01/21/2025 4:08 AM EDT) Iron 49 33 - 151 ug/dL 01/21/2025 1:06 PM EDT LAB[facility] Iron Binding Capacity 287 250 - 425 ug/dL 01/21/2025 1:06 PM EDT LAB[facility]ATORY [facility] Transferrin Saturation Percent 17 15 - 55 % 01/21/2025 1:06 PM EDT LAB[facility] Blood Venous blood specimen / Unknown Venipuncture / Unknown 01/21/2025 4:08 AM EDT 01/21/2025 4:38 AM EDT Gabriel Soto MD LAB BLOOD ORDERABLES Final Resul t Performing Organization Address [facility] [[email or web address]] Co de Phone Number LAB[facility]ATORY [facility] [address] [place] [address] * (ABNORMAL) TROPONIN T, HIGH SENSITIVITY (01/21/2025 4:08 AM EDT) [facility] Troponin T, High Sensitivity 27(H) <=14 ng/L 01/21/2025 11:56 AM EDT LAB[facility]ATORY [facility] Blood Venous blood specimen / Unknown Venipuncture / Unknown 01/21/2025 4:08 AM EDT 01/21/2025 4:38 AM EDT Talita Wang MD LAB BLOOD ORDERABLES Final Resu lt Performing Organization Address [facility] de Phone Number LAB[facility]ATORY [facility] [address] [place] [address] * (ABNORMAL) BASIC METABOLIC PANEL (01/21/2025 4:08 AM EDT) Pathologist [facility] BUN 11 6 - 20 mg/dL 01/21/2025 5:12 AM EDT LAB[facility]ORY [facility] CREATININE 0.8 0.5 - 1.0 mg/dL 01/21/2025 5:12 AM EDT LAB[facility]ORY [facility] EGFR 77 >=60 mL/min 01/21/2025 5:12 AM EDT LAB[facility]ORY [facility] Comment:eGFR is calculated b ased on the CKD-EPI 2020 equation. SODIUM 136 135 - 146 mmol/L 01/21/2025 5:12 AM EDT LABORATORY C POTASSIUM 4.3 3.5 - 5.1 mmol/L 01/21/2025 5:12 AM EDT [facility] CHLORIDE 103 98 - 107 mmol/L 01/21/2025 5:12 AM EDT [facility] CO2 25 22 - 32 mmol/L 01/21/2025 5:12 AM EDT [facility] ANION GAP 8 7 - 15 mmol/L 01/21/2025 5:12 AM EDT [facility] GLUCOSE 122(H) 70 - 120 mg/dL 01/21/2025 5:12 AM EDT [facility] CALCIUM 8.0(L) 8.4 - 10.2 mg/dL 01/21/2025 5:12 AM EDT [facility] Blood Venous blood specimen / Unknown Venipuncture / Unknown 01/21/2025 4:08 AM EDT 01/21/2025 4:38 AM EDT us Talita Wang MD LAB BLOOD ORDERABLES Final Resu lt [facility] [address] [place] [address] * (ABNORMAL) CBC (01/21/2025 4:08 AM EDT) WBC 10.38 4.00 - 10.80 K/uL 01/21/2025 4:51 AM EDT [facility] RBC 3.54 3.85 - 5.15 M/uL 01/21/2025 4:51 AM EDT [facility] HGB 10.4(L) 12.0 - 15.3 g/dL 01/21/2025 4:51 AM EDT [facility] HCT 32.5(L) 36.0 - 45.2 % 01/21/2025 4:51 AM EDT [facility] MCV 91.8 81.5 - 97.5 fL 01/21/2025 4:51 AM EDT [facility] MCH 29.4 27.0 - 34.0 pg 01/21/2025 4:51 AM EDT [facility] MCHC 32.0 32.0 - 36.0 g/dL 01/21/2025 4:51 AM EDT [facility] RDW 14.5 11.5 - 15.5 % 01/21/2025 4:51 AM EDT LAB[facility]ORY [facility] PLT 211 140 - 400 K/uL 01/21/2025 4:51 AM EDT LAB[facility] MPV 10.5 6.6 - 11.1 fL 01/21/2025 4:51 AM EDT LAB[facility] nRBCs 0 <=0 /100 WBCs 01/21/2025 4:51 AM EDT LAB[facility] Blood Venous blood specimen / Unknown Venipuncture / Unknown 01/21/2025 4:08 AM EDT 01/21/2025 4:38 AM EDT Talita Wang MD LAB BLOOD ORDERABLES Final Resu lt [facility] [address] [place] [address] * (ABNORMAL) TROPONIN T, HIGH SENSITIVITY (01/20/2025 1:52 PM EDT) Pathologist [facility] Troponin T, High Sensitivity 39(H) <=14 ng/L 01/20/2025 2:30 PM EDT LAB[facility]ORY [facility] Blood Venous blood specimen / Unknown Venipuncture / Unknown 01/20/2025 1:52 PM EDT 01/20/2025 2:03 PM EDT Gabriel Soto MD LAB BLOOD ORDERABLES Final Resul t Performing Organization Address [facility]/ZIP Co de Phone Number [facility] [address] [place] [address] * (ABNORMAL) P2Y12 INHIBITOR REACTIVITY (CLOPIDOGREL), VERIFYNOW (01/20/2025 1:22 PM EDT) VerifyNow P2Y12 77(L) 182 - 335 PRU 01/20/2025 2:01 PM EDT LAB[facility] Blood Venous blood specimen / Unknown Venipuncture / Unknown 01/20/2025 1:22 PM EDT 01/20/2025 1:37 PM EDT Narrative LAB[facility] - 01/20/2025 2:01 PM EDT Assay measures the level of platelet P2Y12 receptor blockade from clopidogrel and it should not be used to detect other platelet functional disorders. This test is not to be used for therapeutic monitoring. >=182 P2Y12 inhibitory drug (clopidogrel) NOT detected % clopidogrel inhibition = (Baseline PRU - Post-treatment PRU) / Baseline PRU x100 <10% inhibition indicated the patient is resistant to therapy and recommend different antiplatelet medication Interfering substances/Test limitations: Do not test patients if on the following medications until platelet function has recovered (timeframe), as they may result in low ARU values; dipyridamole - 12 hours, cilostazol - 12 hours, Aggrenox (aspirin/dipyridamole) - 10 days. Samples may also be affected by low hematocrit (<29%), high hematocrit (>56%), or low platelet counts (<92,000/cmm). Patients on ticlopidine, prasugrel, and ticagrelor or with inherited platelet disorders have not been studied using this assay and the ability of the assay to detect these drugs or clopidogrel usage in these patients is unknown. Talita Wang MD LAB BLOOD ORDERABLES Final Resu lt Performing Organization Address [facility] [[email or web address]] Co de Phone Number LABORATORY [address] [address] * VASC PROCEDURE IN VASCULAR ANGIO SUITE (01/20/2025 12:24 PM EDT) Narrative Scheduling, Silent - 01/20/2025 12:24 PM EDT This procedure will not be read by a Radiologist. Please see operative note. Servando Rees MD RAD SPECIAL PROCEDURES Final R esult * EXTRA LIGHT BLUE TOP (01/20/2025 11:18 AM EDT) Blood Venous blood specimen / Unknown 01/20/2025 11:18 AM EDT 01/20/2025 11:30 AM EDT us Servando Rees MD LAB BLOOD ORDERABLES Final Res ult Performing Organization Address [facility]/ZIP Co de Phone Number [facility]ATORY [facility] [address] [place] [address] * EXTRA LIGHT BLUE TOP (01/20/2025 11:18 AM EDT) Blood Venous blood specimen / Unknown 01/20/2025 11:18 AM EDT 01/20/2025 11:30 AM EDT us Servando Rees MD LAB BLOOD ORDERABLES Final Res ult Performing Organization Address City/[facility]/ZIP Co de Phone Number [facility] [address] [place] [address] * EXTRA LIGHT BLUE TOP (01/20/2025 10:50 AM EDT) Blood Venous blood specimen / Unknown 01/20/2025 10:50 AM EDT 01/20/2025 11:04 AM EDT us Servando Rees MD LAB BLOOD ORDERABLES Final Res ult Performing Organization Address City/[facility]/ZIP Co de Phone Number [facility] [address] [place] [address] * EXTRA LIGHT BLUE TOP (01/20/2025 10:50 AM EDT) Blood Venous blood specimen / Unknown 01/20/2025 10:50 AM EDT 01/20/2025 11:04 AM EDT us Servando Rees MD LAB BLOOD ORDERABLES Final Res ult Performing Organization Address City/[facility] [[email or web address]] Co de Phone Number [facility] [address] [place] [address] * PT INR (01/20/2025 10:50 AM EDT) [facility] Prothrombin Time 14.5 11.6 - 15.2 seconds 01/20/2025 11:24 AM EDT LAB[facility] INR 1.1 0.8 - 1.2 01/20/2025 11:24 AM EDT LAB[facility]ORY [facility] Blood Venous blood specimen / Unknown Venipuncture / Unknown 01/20/2025 10:50 AM EDT 01/20/2025 11:04 AM EDT Narrative [facility] - 01/20/2025 11:24 AM EDT Warfarin Therapy INR: 2.0-3.0 conventional anticoagulation INR: 2.5-3.5 high intensity anticoagulation Talita Wang MD LAB BLOOD ORDERABLES Final Resu lt Performing Organization Address City/[facility]/ZIP Co de Phone Number [facility] [address] [place] [address] * (ABNORMAL) TROPONIN T, HIGH SENSITIVITY (01/20/2025 10:50 AM EDT) [facility] Troponin T, High Sensitivity 47(H) <=14 ng/L 01/20/2025 11:33 AM EDT LABORATORY [facility] Blood Venous blood specimen / Unknown Venipuncture / Unknown 01/20/2025 10:50 AM EDT 01/20/2025 11:04 AM EDT Talita Wang MD LAB BLOOD ORDERABLES Final Resu lt Performing Organization Address [facility] [[email or web address]] Co de Phone Number [facility] [address] [place] [address] * (ABNORMAL) CBC (01/20/2025 10:50 AM EDT) [facility] WBC 10.30 4.00 - 10.80 K/uL 01/20/2025 11:11 AM EDT [facility] RBC 3.73 3.85 - 5.15 M/uL 01/20/2025 11:11 AM EDT [facility] HGB 11.2(L) 12.0 - 15.3 g/dL 01/20/2025 11:11 AM EDT [facility] HCT 33.0(L) 36.0 - 45.2 % 01/20/2025 11:11 AM EDT [facility] MCV 88.5 81.5 - 97.5 fL 01/20/2025 11:11 AM EDT [facility] MCH 30.0 27.0 - 34.0 pg 01/20/2025 11:11 AM EDT [facility] MCHC 33.9 32.0 - 36.0 g/dL 01/20/2025 11:11 AM EDT [facility] RDW 14.1 11.5 - 15.5 % 01/20/2025 11:11 AM EDT [facility] 209 140 - 400 K/uL 01/20/2025 11:11 AM EDT [facility] MPV 10.0 6.6 - 11.1 fL 01/20/2025 11:11 AM EDT [facility] nRBCs 0 <=0 /100 WBCs 01/20/2025 11:11 AM EDT [facility] [place] Venous blood specimen / Unknown Venipuncture / Unknown 01/20/2025 10:50 AM EDT 01/20/2025 11:04 AM EDT us Talita Wang MD LAB BLOOD ORDERABLES Final Resu lt [facility] [address], [place] [id number] * (ABNORMAL) BASIC METABOLIC PANEL (01/20/2025 10:50 AM EDT) BUN 11 6 - 20 mg/dL 01/20/2025 11:33 AM EDT [facility] CREATININE 0.7 0.5 - 1.0 mg/dL 01/20/2025 11:33 AM EDT [facility] EGFR >90 >=60 mL/min 01/20/2025 11:33 AM EDT LABORATORY C Comment:eGFR is calculated b ased on the CKD-EPI 2020 equation. SODIUM 137 135 - 146 mmol/L 01/20/2025 11:33 AM EDT [facility] POTASSIUM 4.2 3.5 - 5.1 mmol/L 01/20/2025 11:33 AM EDT [facility] CHLORIDE 105 98 - 107 mmol/L 01/20/2025 11:33 AM EDT [facility] CO2 18(L) 22 - 32 mmol/L 01/20/2025 11:33 AM EDT [facility] ANION GAP 14 7 - 15 mmol/L 01/20/2025 11:33 AM EDT [facility] GLUCOSE 183(H) 70 - 120 mg/dL 01/20/2025 11:33 AM EDT [facility] CALCIUM 7.4(L) 8.4 - 10.2 mg/dL 01/20/2025 11:33 AM EDT [facility] [place] Venous blood specimen / Unknown Venipuncture / Unknown 01/20/2025 10:50 AM EDT 01/20/2025 11:04 AM EDT Talita Wang MD LAB BLOOD ORDERABLES Final Resu lt Performing Organization Address City/[facility] [[email or web address]] Co de Phone Number [facility] [address] [place] [address] * EKG (01/20/2025 10:44 AM EDT) 01/20/2025 10:4 4 AM EDT Narrative Procedure Note Nic Salazar MD - 01/20/2025 10:44 AM EDT REASON FOR STUDY: POST OP CONCLUSIONS: Sinus rhythm with frequent and consecutive Premature ventricularcomplexes Nonspecific ST abnormality Prolonged QT interval or tu fusion, consider myocardial disease,electrolyte imbalance, or drug effects When compared with ECG of 01-Apr-2024 11:41, Premature ventricular complexes are now Present QT has lengthened Ventricular Rate: 79 Atrial Rate: 79 [place] Interval: 154 QRS Duration: 72 QT/QTc: 438/502 ms P-R-T [place]: 71 : -8 : 86 degrees us Talita Wang MD EKG Final Result Performing Organization Address [facility] [[email or web address]] Co de Phone Number [facility] * XR CHEST 1 VIEW (01/20/2025 10:43 AM EDT) Anatomical Region Laterality Modality Chest Computed Radiogr aphy 01/20/2025 11:5 7 AM EDT Impressions 01/20/2025 11:54 AM EDT IMPRESSION Hypoventilatory changes versus interstitial edema. Narrative 01/20/2025 11:54 AM EDT EXAM XR CHEST 1 VIEW - 01/20/2025 10:43 am HISTORY SOB COMPARISON 08/11/2023 TECHNIQUE Frontal view of the chest. FINDINGS Support apparatus: Left paratracheal stent. Sternal wires. Mediastinal clips. Overlying wires. Bronchovascular crowding. No specific consolidations, pleural effusion or pneumothorax. Cardiomediastinal silhouette and pulmonary vasculature within normal limits. Procedure Note Yaw Kruger II, MD - 01/20/2025 EXAM XR CHEST 1 VIEW - 01/20/2025 10:43 am HISTORY SOB COMPARISON 08/11/2023 TECHNIQUE Frontal view of the chest. FINDINGS Support apparatus: Left paratracheal stent. Sternal wires. Mediastinalclips. Overlying wires. Bronchovascular crowding. No specific consolidations, pleural effusion orpneumothorax. Cardiomediastinal silhouette and pulmonary vasculaturewithin normal limits. IMPRESSION IMPRESSION Hypoventilatory changes versus interstitial edema. Talita Wang MD RADIOLOGY ([facility]) Final R esult * ACT, POINT OF CARE (01/20/2025 9:56 AM EDT) ACT 124 50 - 1,000 secs 01/21/2025 8:12 AM EDT [facility] Blood 01/20/2025 9:56 AM EDT 01/21/2025 8:12 AM EDT Narrative [facility] - 01/21/2025 8:12 AM EDT NORMAL (NON-HEPARINIZED) 74-137 SECONDS HEPARINIZED 200+ SECONDS CRITICAL GREATER THAN 1000 SECONDS Servando Rees MD LAB POINT OF CARE TE ST DOCKED DEVICE UNSOLICITED RESULTS Final Result [facility] [address] [place] [address] * ACT, POINT OF CARE (01/20/2025 8:22 AM EDT) ACT 245 50 - 1,000 secs 01/21/2025 8:12 AM EDT [facility] Blood 01/20/2025 8:22 AM EDT 01/21/2025 8:12 AM EDT Narrative [facility] - 01/21/2025 8:12 AM EDT NORMAL (NON-HEPARINIZED) 74-137 SECONDS HEPARINIZED 200+ SECONDS CRITICAL GREATER THAN 1000 SECONDS Servando Rees MD LAB POINT OF CARE TE ST DOCKED DEVICE UNSOLICITED RESULTS Final Result Performing Organization Address City/[facility] [[email or web address]] Co de Phone Number [facility] [address] [place] [address] * ABO/RH (01/20/2025 6:41 AM EDT) ABO O 01/20/2025 8:02 AM EDT [facility] Rh Negative 01/20/2025 8:02 AM EDT [facility] Blood Venous blood specimen / Unknown Venipuncture / Unknown 01/20/2025 6:41 AM EDT 01/20/2025 6:47 AM EDT Gabriel Soto MD LAB BLOOD BANK TEST ORDERABLES F inal Result Performing Organization Address [facility] de Phone Number [facility] [address] [place] [address] * TYPE AND SCREEN (01/20/2025 6:41 AM EDT) ABO O 01/20/2025 7:45 AM EDT [facility] Rh Negative 01/20/2025 7:45 AM EDT [facility] Red Blood Cell Antibody Screen Negative 01/20/2025 7:45 AM EDT [facility] Specimen Expiration Date 01/23/2025 23:59 01/20/2025 7:45 AM EDT [facility] Blood Venous blood specimen / Unknown Venipuncture / Unknown 01/20/2025 6:41 AM EDT 01/20/2025 6:47 AM EDT us Gabriel Soto MD LAB BLOOD BANK TEST ORDERABLES F inal Result Performing Organization Address [facility] [[email or web address]] Co de Phone Number [facility] [address] [place] [address] * (ABNORMAL) GLUCOSE METER, POINT OF CARE (01/20/2025 6:38 AM EDT) Glucose - POCT 129(H) 70 - 120 mg/dL 01/20/2025 6:40 AM EDT [facility] [employer] [facility] Blood Whole blood specimen / Unknown 01/20/2025 6:38 AM EDT 01/20/2025 6:40 AM EDT us Servando Rees MD LAB POINT OF CARE TE ST DOCKED DEVICE UNSOLICITED RESULTS Final Result [facility] [address] [place] [address] documented in this encounter Visit Diagnoses Diagnosis Symptomatic stenosis of both carotid arteries without infarction- Primary Left carotid artery stenosis Occlusion and stenosis of carotid artery without mention of cerebral infarction Chest pain Chest pain, unspecified Coronary artery disease involving [place] coronary artery of [place] heart without angina pectoris Shortness of breath 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 Retinal ischemia Idiopathic hypotension Hypotension, unspecified Coronary artery disease involving [place] coronary artery of [place] heart without angina pectoris documented in this encounter Administered Medications Inactive Administered Medications - up to 3 most recent administrations Medication Order MAR Action Action Date Dose Rate Site Acetaminophen (Tylenol) tab 650 mg 650 mg, Oral, Q6H, First dose on Fri01/20/25 at 1200, Last dose on Fri01/25/25 at 0600, For 5 days, Avoid in patients with severe hepatic impairment or severe active liver disease. Use for 5 days, Post-op Given 01/22/2025 4:37 AM EDT 650 mg Given 01/21/2025 5:22 PM EDT 650 mg Given 01/21/2025 12:53 PM EDT 650 mg Acetaminophen (Tylenol) tab 975 mg 975 mg, Oral, PREOP, First dose on Fri01/20/25 at 0715, Last dose on Fri01/20/25 at 0715, For 1 dose, Maximum 4 g acetaminophen/day. Avoid in patients with severe hepatic impairment or severe active liver disease. Administer 60 minutes prior to OR., Pre-Op Given 01/20/2025 6:46 AM EDT 975 mg albuterol-ipratropium (Duoneb) inhalation solution 3 mL 3 mL, Nebulizer, ONCE, On Fri01/20/25 at 0730, For 1 dose, 3 mL = 0.5 mg ipratropium/ 2.5 mg albuterol, Pre-Op Given 01/20/2025 6:49 AM EDT 3 mL albuterol-ipratropium (Duoneb) inhalation solution 3 mL 3 mL, Nebulizer, RESPQID, First dose on Fri01/20/25 at 1200, Until Discontinued, 3 mL = 0.5 mg ipratropium/ 2.5 mg albuterol, PACU Given 01/20/2025 11:47 AM EDT 3 mL aspirin enteric coated tab 81 mg 81 mg, Oral, Daily(AM), First dose on Fri01/20/25 at 1115, Until Discontinued, HOLD if not taking PO, Post-op Given 01/22/2025 7:50 AM EDT 81 mg Given 01/21/2025 8:22 AM EDT 81 mg Given 01/20/2025 11:47 AM EDT 81 mg atorvaSTATin (Lipitor) tab 40 mg 40 mg, Oral, Q1700, First dose on Fri01/20/25 at 1700, Until Discontinued Given 01/21/2025 3:59 PM EDT 40 mg calcium GLUConate 1000 mg in 50ml ivpb 1,000 mg, IV Piggyback, ONCE, 1 dose, On Fri01/21/25 at 1015 New Bag 01/21/2025 11:06 AM EDT 1,000 mg 10 0 mL/hr ceFAZolin in dextrose (Ancef) ivpb 2 g 2 g, IV Piggyback, Q8H, 2 doses, First dose on Fri01/20/25 at 1400, Last dose on Fri01/20/25 at 2200, Post-op New Bag 01/20/2025 9:33 PM EDT 2 g 100 mL/hr New Bag 01/20/2025 2:57 PM EDT 2 g 100 mL/hr Cetirizine (ZyrTEC) tab 10 mg 10 mg, Oral, Daily(AM), First dose on Fri01/20/25 at 1130, Until Discontinued Given 01/22/2025 7:50 AM EDT 10 mg Given 01/21/2025 8:24 AM EDT 10 mg chlorhexidine gluconate cloth 2 % pad 1 Pad 1 Pad, External, PREOP, First dose on Fri01/20/25 at 0715, Last dose on Fri01/20/25 at 0715, For 1 dose, Cleanse surgical site area immediately before transferring intra-op, Pre-Op Given 01/20/2025 6:41 AM EDT 1 Pad clopidogrel (pLAVix) tab 75 mg 75 mg, Oral, Daily(AM), First dose on Fri01/21/25 at 0900, Until Discontinued Given 01/22/2025 7:50 AM EDT 75 mg Given 01/21/2025 8:22 AM EDT 75 mg Ezetimibe (Zetia) tab 10 mg 10 mg, Oral, Daily(AM), First dose on Fri01/20/25 at 1130, Until Discontinued Given 01/22/2025 7:50 AM EDT 10 mg Given 01/21/2025 8:22 AM EDT 10 mg hEParin inj 5,000 Units 5,000 Units, Subcutaneous, Q8H, First dose on Fri01/21/25 at 0600, Until Discontinued, Post-op Given 01/22/2025 4:50 AM EDT 5,000 Units Abdomen Right Upper Given 01/21/2025 9:27 PM EDT 5,000 Units A bdomen Left Lower Given 01/21/2025 2:54 PM EDT 5,000 Units A bdomen Right Upper HYDROmorphone (Dilaudid) inj 0.25 mg 0.25 mg, IV Push, Q15 MIN PRN Pain, Severe, Starting on Fri01/20/25 at 0823, Until Fri01/20/25 at 1328, For 4 doses, Administer only postop in PACU. Hold for respiratory rate less than 12. Administer up to a total of 1mg., PACU Given 01/20/2025 11:00 AM EDT 0.25 mg Given 01/20/2025 10:42 AM EDT 0.25 mg isolyte 500 mL bolus infusion Intravenous, Administer entire volume within 60 minutes or less. Plasma-LYTE 148, isolyte-S, and isolyte-S pH 7.4 are considered equivalent - including for MAR barcode scanning., ONCE, 1 dose, On Fri01/20/25 at 1815 New Bag 01/20/2025 6:09 PM EDT 500 mL 500 mL/hr isolyte 500 mL bolus infusion Intravenous, Administer entire volume within 60 minutes or less. Plasma-LYTE 148, isolyte-S, and isolyte-S pH 7.4 are considered equivalent - including for MAR barcode scanning., ONCE, 1 dose, On Fri01/21/25 at 1430 New Bag 01/21/2025 2:51 PM EDT 500 mL 500 mL/hr Isolyte-S pH 7.4 infusion Intravenous, at 25 mL/hr, Plasma-LYTE 148, isolyte-S, and isolyte-S pH 7.4 are considered equivalent - including for MAR barcode scanning., CONTINUOUS, Starting on Keely 01/20/25 at 0715, Until Keely 01/20/25 at 1735, Pre-Op New Bag 01/20/2025 6:42 AM EDT 25 mL/hr Isolyte-S pH 7.4 infusion Intravenous, at 75 mL/hr, Plasma-LYTE 148, isolyte-S, and isolyte-S pH 7.4 are considered equivalent - including for MAR barcode scanning., CONTINUOUS, Starting on Keely 01/20/25 at 1115, Until Keely 01/20/25 at 1735, Post-op New Bag 01/20/2025 2:02 PM EDT 75 mL/hr New Bag 01/20/2025 11:15 AM EDT 75 mL/hr LORAzepam (Ativan) tab 0.5 mg 0.5 mg, Oral, Q12H PRN Anxiety, Starting on Keely 01/20/25 at 1049, Until 01/22/25 at 1346 Given 01/22/2025 4:50 AM EDT 0.5 mg Given 01/21/2025 5:22 PM EDT 0.5 mg Given 01/21/2025 5:31 AM EDT 0.5 mg naloxone (Narcan) 0.4 MG/ML inj 0.08 mg 0.08 mg, IV Push, PRN Other, If patient is oversedated or Respiratory Rate less than 8, Starting on Keely 01/20/25 at 1037, Until 01/22/25 at 1346, Call provider if patient is oversedated or Respiratory Rate is less than 8, Post-op Nicotine (Nicoderm CQ) 21 MG/24HR patch 1 Patch 1 Patch, Transdermal, Daily(AM), First dose (after last modification) on Keely 01/20/25 at 1800, Until Discontinued, Do NOT cut the patch. Remove any Nicotine patches the patient may currently be wearing prior to applying the new patch. Place on clean hairless area. Remove for patient showers. WASTE INFO: Return packaging and waste medication in zip lock bag to pharmacy - [facility] container. Patch Applied 01/21/2025 8:23 AM EDT 1 Patch Arm Right Upper Patch Applied 01/20/2025 5:34 PM EDT 1 Patch Deltoid Left Lower NSS 0.9% 500 mL bolus infusion Intravenous, at 500 mL/hr Administer over 60 Minutes, Administer entire volume within 60 minutes or less., PRN, 2 doses, Starting on Keely 01/20/25 at 1037, Until 01/22/25 at 1346, Hypotension, Systolic Blood pressure less than 90, Post-op ondansetron (Zofran) inj 4 mg 4 mg, IV Push, Q6H PRN Other, May use for nausea or vomiting if patient unable to take oral ondansetron, Starting on Keely 01/20/25 at 1037, Until 01/22/25 at 1346, Post-op ondansetron ODT (Zofran) tab 4 mg 4 mg, On Tongue, Q6H PRN Nausea, Vomiting, Starting on Keely 01/20/25 at 1037, Until 01/22/25 at 1346, Post-op oxyCODONE (Oxy IR) tab 5 mg 5 mg, Oral, Q4H PRN Pain, Severe, Starting on Keely 01/20/25 at 1041, Until 01/22/25 at 1346, Post-op Given 01/21/2025 3:59 PM EDT 5 mg Given 01/21/2025 8:37 AM EDT 5 mg Given 01/21/2025 12:58 AM EDT 5 mg Povidone-Iodine nasal swab 4 Swab 4 Swab, Nasal, PREOP, First dose on Keely 01/20/25 at 0715, Last dose on Fri01/20/25 at 0715, For 1 dose, Tilt the bottle slightly, dip one swab into solution and stir vigorously for 10 seconds. Withdraw the swab slowly to avoid wiping solution off during removal. Insert swab comfortably into one nostril and rotate for 15 seconds, covering all surfaces. Then focus on the inside tip of nostril and rotate for an additional 15 seconds. Using a new swab, Repeat above steps in the other nostril (Swab 2). Repeat the application in both nostrils using a fresh swab each times (Swab 3 and 4)., Pre-Op Given 01/20/2025 6:42 AM EDT 4 Swabs documented in this encounter Active and Recently Administered Medications Times are shown in EDT. Scheduled Medication Order 01/20/2025 01/21/2025 01/22/2025 Acetaminophen (Tylenol) tab 650 mg 650 mg, Oral, Q6H, First dose on Fri01/20/25 at 1200, Last dose on Fri01/25/25 at 0600, For 5 days, Avoid in patients with severe hepatic impairment or severe active liver disease. Use for 5 days, Post-op 1147 (Given - Provider: Mindy Matos RN)1807 (Given - Provider: Danii Churchill, CAMACHO)2253 (Given - Provider: Anabela Garcia RN) 0531 (Given - Provider: Anabela Garcia, CAMACHO)1253 (Given - Provider: Melinda Esposito, CAMACHO)1722 (Given - Provider: Floresita Cueto RN) 0000 (Not Given - Provider: Trent Wills RN - Reason: Refused-Notify Provider)0437 (Given - Provider: Trent Wills, CAMACHO) Acetaminophen (Tylenol) tab 975 mg (COMPLETED) 975 mg, Oral, PREOP, First dose on Keely 01/20/25 at 0715, Last dose on Fri01/20/25 at 0715, For 1 dose, Maximum 4 g acetaminophen/day. Avoid in patients with severe hepatic impairment or severe active liver disease. Administer 60 minutes prior to OR., Pre-Op 0646 (Given - Provider: Sulema Blair RN) albuterol-ipratropium (Duoneb) inhalation solution 3 mL (COMPLETED) 3 mL, Nebulizer, ONCE, On Keely 01/20/25 at 0730, For 1 dose, 3 mL = 0.5 mg ipratropium/ 2.5 mg albuterol, Pre-Op 0649 (Given - Provider: Sulema Blair, CAMACHO) albuterol-ipratropium (Duoneb) inhalation solution 3 mL (CANCELED) 3 mL, Nebulizer, RESPQID, First dose on Fri01/20/25 at 1200, Until Discontinued, 3 mL = 0.5 mg ipratropium/ 2.5 mg albuterol, PACU 1147 (Given - Provider: Mindy Matos, CAMACHO) aspirin enteric coated tab 81 mg 81 mg, Oral, Daily(AM), First dose on Fri01/20/25 at 1115, Until Discontinued, HOLD if not taking PO, Post-op 1147 (Given - Provider: Mindy Matos, CAMACHO) 0822 (Given - Provider: Melinda Esposito, CAMACHO) 0750 (Given - Provider: Yessi Avila RN) atorvaSTATin (Lipitor) tab 40 mg 40 mg, Oral, Q1700, First dose on Fri01/20/25 at 1700, Until Discontinued 1700 (Not Given - Provider: Danii Churchill RN - Reason: Other-Notify Provider - Comment: Already took this morning at home.) 1559 (Given - Provider: Floresita Cueto RN) calcium GLUConate 1000 mg in 50ml ivpb (COMPLETED) 1,000 mg, IV Piggyback, ONCE, 1 dose, On Fri01/21/25 at 1015 1106 (New Bag - Provider: Melinda Esposito RN) ceFAZolin in dextrose (Ancef) ivpb 2 g (COMPLETED) 2 g, IV Piggyback, PREOP, 1 dose, First dose on Fri01/20/25 at 0715, Administer 60 minutes prior to skin incision, Pre-Op 0748 (Given - Provider: Carloz Peres MD) ceFAZolin in dextrose (Ancef) ivpb 2 g (COMPLETED) 2 g, IV Piggyback, Q8H, 2 doses, First dose on Fri01/20/25 at 1400, Last dose on Fri01/20/25 at 2200, Post-op 1457 (New Bag - Provider: Melinda Esposito RN)2133 (New Bag - Provider: Anabela Garcia RN) Cetirizine (ZyrTEC) tab 10 mg 10 mg, Oral, Daily(AM), First dose on Fri01/20/25 at 1130, Until Discontinued 1130 (Not Given - Provider: Mindy Matos RN - Reason: Parameter(s) Not Met - Comment: taken at home) 0824 (Given - Provider: Melinda Esposito RN) 0750 (Given - Provider: Yessi Avila RN) chlorhexidine gluconate cloth 2 % pad 1 Pad (COMPLETED) 1 Pad, External, PREOP, First dose on Fri01/20/25 at 0715, Last dose on Fri01/20/25 at 0715, For 1 dose, Cleanse surgical site area immediately before transferring intra-op, Pre-Op 0641 (Given - Provider: Sulema Blair RN) clopidogrel (pLAVix) tab 75 mg 75 mg, Oral, Daily(AM), First dose on Fri01/21/25 at 0900, Until Discontinued 08 (Given - Provider: Melinda Esposito RN) 0750 (Given - Provider: Yessi Avila RN) Ezetimibe (Zetia) tab 10 mg 10 mg, Oral, Daily(AM), First dose on Fri01/20/25 at 1130, Until Discontinued 1130 (Not Given - Provider: Mindy Matos RN - Reason: Parameter(s) Not Met - Comment: taken at home) 08 (Given - Provider: Melinda Esposito RN) 0750 (Given - Provider: Yessi Avila RN) hEParin inj 5,000 Units 5,000 Units, Subcutaneous, Q8H, First dose on Fri01/21/25 at 0600, Until Discontinued, Post-op 0529 (Given - Provider: Anabela Garcia RN)1454 (Given - Provider: Melinda Esposito RN)2127 (Given - Provider: Trent Wills, CAMACHO) 0450 (Given - Provider: Trent Wills RN) isolyte 500 mL bolus infusion (COMPLETED) Intravenous, Administer entire volume within 60 minutes or less. Plasma-LYTE 148, isolyte-S, and isolyte-S pH 7.4 are considered equivalent - including for MAR barcode scanning., ONCE, 1 dose, On Fri01/20/25 at 1815 1809 (New Bag - Provider: Danii Churchill, CAMACHO) isolyte 500 mL bolus infusion (COMPLETED) Intravenous, Administer entire volume within 60 minutes or less. Plasma-LYTE 148, isolyte-S, and isolyte-S pH 7.4 are considered equivalent - including for MAR barcode scanning., ONCE, 1 dose, On Fri01/21/25 at 1430 1451 (New Bag - Provider: Melinda Esposito, CAMACHO) Metoprolol Tartrate (Lopressor) tab 12.5 mg 12.5 mg, Oral, Q12H, First dose on Fri01/20/25 at 2100, Until Discontinued, Hold for HR less than 60 or SBP below 100 and notify service if dose is held 2100 (Not Given - Provider: Anabela Garcia RN - Reason: Parameter(s) Not Met) 0900 (Not Given - Provider: Melinda Esposito RN - Reason: Parameter(s) Not Met - Comment: BP 78/[address] Gabriel Soto)2100 (Dose Held (per order) - Provider: Trent Wills RN - Comment: Hold confirmed by Mitzy Bell) 0900 (Not Given - Provider: Yessi Avila RN - Reason: Parameter(s) Not Met - Comment: Patient Hx of hypotension; Dr. Gloria Millard requested hold for now) Nicotine (Nicoderm CQ) 21 MG/24HR patch 1 Patch 1 Patch, Transdermal, Daily(AM), First dose (after last modification) on Fri01/20/25 at 1800, Until Discontinued, Do NOT cut the patch. Remove any Nicotine patches the patient may currently be wearing prior to applying the new patch. Place on clean hairless area. Remove for patient showers. WASTE INFO: Return packaging and waste medication in zip lock bag to pharmacy - [facility] container. 1734 (Patch Applied - Provider: Danii Churchill, CAMACHO) 0822 (Patch Removed - Provider: Melinda Esposito RN)0823 (Patch Applied - Provider: Melinda Esposito RN) 0823 (Patch Removed - Provider: Yessi Avila RN)0900 (Not Given - Provider: Yessi Avila RN - Reason: Refused-Notify Provider) Povidone-Iodine nasal swab 4 Swab (COMPLETED) 4 Swab, Nasal, PREOP, First dose on Keely 01/20/25 at 0715, Last dose on Keely 01/20/25 at 0715, For 1 dose, Tilt the bottle slightly, dip one swab into solution and stir vigorously for 10 seconds. Withdraw the swab slowly to avoid wiping solution off during removal. Insert swab comfortably into one nostril and rotate for 15 seconds, covering all surfaces. Then focus on the inside tip of nostril and rotate for an additional 15 seconds. Using a new swab, Repeat above steps in the other nostril (Swab 2). Repeat the application in both nostrils using a fresh swab each times (Swab 3 and 4)., Pre-Op 0642 (Given - Provider: Sulema Blair RN) Continuous Medication Order 01/20/2025 01/21/2025 01/22/2025 Isolyte-S pH 7.4 infusion (CANCELED) Intravenous, at 25 mL/hr, Plasma-LYTE 148, isolyte-S, and isolyte-S pH 7.4 are considered equivalent - including for MAR barcode scanning., CONTINUOUS, Starting on Keely 01/20/25 at 0715, Until Keely 01/20/25 at 1735, Pre-Op 0642 (New Bag - Provider: Sulema Blair RN)1735 (Stopped - Provider: Danii Churchill, CAMACHO) Isolyte-S pH 7.4 infusion (CANCELED) Intravenous, at 75 mL/hr, Plasma-LYTE 148, isolyte-S, and isolyte-S pH 7.4 are considered equivalent - including for MAR barcode scanning., CONTINUOUS, Starting on Keely 01/20/25 at 1115, Until Keely 01/20/25 at 1735, Post-op 1115 (New Bag - Provider: Mindy Matos RN)1402 (New Bag - Provider: Melinda Esposito, CAMACHO)1735 (Stopped - Provider: Danii Churchill, CAMACHO) PRN Medication Order 01/20/2025 01/21/2025 01/22/2025 albuterol (VENTOLIN HFA/PROVENTIL HFA) inhaler 2 Puff, Inhalation, Q4H PRN Dyspnea, Starting on Keely 01/20/25 at 1049, Until 01/22/25 at 1346, Shake can for 10 seconds before each puff SEND INHALER WITH PATIENT! WASTE INFO ( IF NOT SENT HOME WITH PATIENT) : Return unused medication to pharmacy in zip lock bag for disposal into black container labeled SP. bupivacaine HCl (Sensorcaine) 0.25 % (PF) inj (CANCELED) ONCE PRN INTRA PROCEDURE, Starting on Keely 01/20/25 at 0958, Until Keely 01/20/25 at 1024, Intra-Op 0958 (Given - Provider: Servando Rees MD - Comment: Left Neck - incision site) ceFAZolin 1,000 mg in sodium chloride IR 0.9 % 500 mL irrigation (CANCELED) ONCE PRN INTRA PROCEDURE, Starting on Keely 01/20/25 at 0809, Until Keely 01/20/25 at 1024, Intra-Op 0809 (Given - Provider: Servando Rees MD - Comment: PRN intraop) Famotidine (Pepcid) tab 20 mg 20 mg, Oral, BID PRN Other, ulcer meds, Starting on Keely 01/20/25 at 1050, Until 01/22/25 at 1346 hEParin 5,000 Units in NSS 500 mL infusion (CANCELED) ONCE PRN INTRA PROCEDURE, Starting on Keely 01/20/25 at 0809, Until Keely 01/20/25 at 1024, Intra-Op 0809 (Given - Provider: Servando Rees MD - Comment: PRN intraop) HYDROmorphone (Dilaudid) inj 0.25 mg (CANCELED) 0.25 mg, IV Push, Q15 MIN PRN Pain, Severe, Starting on Keely 01/20/25 at 0823, Until Keely 01/20/25 at 1328, For 4 doses, Administer only postop in PACU. Hold for respiratory rate less than 12. Administer up to a total of 1mg., PACU 1042 (Given - Provider: Mindy Matos RN)1100 (Given - Provider: Mindy Matos RN) LORAzepam (Ativan) tab 0.5 mg 0.5 mg, Oral, Q12H PRN Anxiety, Starting on Keely 01/20/25 at 1049, Until 01/22/25 at 1346 1555 (Given - Provider: Danii Churchill, CAMACHO) 0531 (Given - Provider: Anabela Garcia, CAMACHO)1722 (Given - Provider: Floresita Cueto RN) 0450 (Given - Provider: Trent Wills RN) naloxone (Narcan) 0.4 MG/ML inj 0.08 mg 0.08 mg, IV Push, PRN Other, If patient is oversedated or Respiratory Rate less than 8, Starting on Keely 01/20/25 at 1037, Until Sat 4 at 1346, Call provider if patient is oversedated or Respiratory Rate is less than 8, Post-op NSS 0.9% 500 mL bolus infusion Intravenous, at 500 mL/hr Administer over 60 Minutes, Administer entire volume within 60 minutes or less., PRN, 2 doses, Starting on Keely 01/20/25 at 1037, Until 01/22/25 at 1346, Hypotension, Systolic Blood pressure less than 90, Post-op ondansetron (Zofran) inj 4 mg(Linked Group 1) 4 mg, IV Push, Q6H PRN Other, May use for nausea or vomiting if patient unable to take oral ondansetron, Starting on Keely 01/20/25 at 1037, Until 01/22/25 at 1346, Post-op ondansetron ODT (Zofran) tab 4 mg(Linked Group 1) 4 mg, On Tongue, Q6H PRN Nausea, Vomiting, Starting on Keely 01/20/25 at 1037, Until Sat 4/25 at 1346, Post-op oxyCODONE (Oxy IR) tab 5 mg 5 mg, Oral, Q4H PRN Pain, Severe, Starting on Keely 01/20/25 at 1041, Until Sat 4 at 1346, Post-op 1146 (Given - Provider: Mindy Matos RN)1555 (Given - Provider: Danii Churchill, CAMACHO)1959 (Given - Provider: Anabela Garcia, CAMACOH) 005 (Given - Provider: Anabela Garcia RN)0837 (Given - Provider: Melinda Esposito, CAMACHO)1559 (Given - Provider: Floresita Cueto RN) surgicel FIBRILLAR 1X2 (CANCELED) ONCE PRN INTRA PROCEDURE, Starting on Keely 01/20/25 at 0957, Until Keely 01/20/25 at 1024, Intra-Op 0957 (Given - Provider: Servando Rees MD - Comment: Left Neck - incision site) Linked Groups Order Group 1: ondansetron ODT (Zofran) tab 4 mgJump to med 4 mg, On Tongue, Q6H PRN Nausea, Vomiting, Starting on Keely 01/20/25 at 1037, Until 01/22/25 at 1346, Post-op Or ondansetron (Zofran) inj 4 mgJump to med 4 mg, IV Push, Q6H PRN Other, May use for nausea or vomiting if patient unable to take oral ondansetron, Starting on Keely 01/20/25 at 1037, Until 01/22/25 at 1346, Post-op documented in this encounter Advance Directives * Full Code (Latest Code Status on File) Date Activated Date Inactivated Comments 01/20/2025 10:42 AM 01/22/2025 1:46 PM This order re flects the patients wishes and were consensually agreed upon. Question Answer Comments Discussion of Advance Directives occurred with: Patient Care Teams Bilingual Teacher Relationship Specialty Start Date End Date Kia Goetz MD [address] [place] [address], [place] [address] PCP - General Internal Medicine 10/08/21 documented as of this encounter
--- OUTSIDE RECORDS SUMMARY | 2025-01-31 06:32 | External Medical Summary | Summary of Care ---
Author Name Unknown Organization [facility] Address [address] [place] [address] Phone [phone] Care Team Providers Care Energy Assistant Name Role Phone Kia Goetz MD Primary Care Provider [phone] Reason for Visit * Reason Onset Date Comments Advice 01/27/2025 Transfer center call Encounter Details Date Type Department Care Team (Late st Contact Info) Description 01/27/2025 Telephone [facility] Vascular Surgery [address] [place] [address] Brent Sol MD [address] [place] [address] Advice (Transfer center call) Allergies Active Allergy Reactions Criticality Noted Date Comments Mometasone Furoate 01/08/2022 Blisters sides of mouth Duloxetine Hcl Low 10/08/2021 Not allergic, just doesn't work Levofloxacin High 10/08/2021 Becomes deathly ill documented as of this encounter (statuses as of 01/27/2025) Medications ZyrTEC Allergy 10 MG Oral Capsule (Cetirizine HCl) Take 1 Capsule by mouth in the morning. Active Famotidine 20 MG Oral Tablet (Pepcid) Take 1 Tablet by mouth 2 times a day as needed for Heartburn. -uses 2/wk 10/08/20 21 Active Acetaminophen 500 MG Oral Tablet (Tylenol)Indicatio ns:Headache, unspecified headache type Take by mouth 2 Tablets as needed in the morning AND 2 Tablets as needed at noon AND 2 Tablets as needed in the evening (headache). 100 Tablet 01/09/20 22 Active Nitroglycerin 0.4 MG Sublingual Tablet Sublingual (Nitrostat)Indicat ions:Coronary artery disease involving [place] coronary artery of cabaz[place] heart without angina pectoris Place 1 Tablet under the tongue as needed for Pain, Chest. May repeat 3 times. If chest pain continues, call 911. 25 Tablet 08/11/20 23 Active Additional Information Patient not taking.Reported on 01/20/2025 Vitamin D-3 25 MCG (1000 UT) Oral CapsuleIndications :Longitudinal ridging of nail,Vitamin D insufficiency 1 capsule daily--inc 02/10/2024 02/10/20 24 Active Metoprolol Succinate ER 25 MG Oral Tablet Extended Release 24 Hour (toPROL XL)Indications:Cor onary artery disease involving cab[place] coronary artery of [place] heart without angina pectoris TAKE 1 TABLET BY MOUTH EVERY DAY IN THE MORNING 90 Tablet 3 05/01/20 24 Active Atorvastatin Calcium 40 MG Oral Tablet (Lipitor)Indicatio ns:Coronary artery disease involving [place] coronary artery of [place] heart without angina pectoris,Dyslipide bryanna, goal LDL below 70 TAKE 1 TABLET BY MOUTH EVERY DAY IN THE MORNING 90 Tablet 3 09/15/20 24 Active Dorzolamide HCl-Timolol Mal 2-0.5 % Ophthalmic Solution (Cosopt Ocumeter Plus) INSTILL 1 DROP INTO THE RIGHT EYE 2 TIMES PER DAY 12/01/19 25 Active Nicotine 21 MG/24HR Transdermal Patch 24 Hour (Nicoderm CQ)Indications:Sym ptomatic carotid artery narrowing without infarction, right,Tobacco use disorder,Coronary artery disease involving [place] coronary artery of cab[place] heart without angina pectoris,Hx of CABG Place 1 Patch over 24 hours topically on the skin in the morning. On upper body/upper arm, change once a day for 6 weeks.. 42 Patch 12/13/19 25 Active Ezetimibe 10 MG Oral Tablet (Zetia)Indications :Coronary artery disease involving [place] coronary artery of [place] heart without angina pectoris,Dyslipide bryanna, goal LDL below 70 TAKE 1 TABLET BY MOUTH EVERY DAY IN THE MORNING 90 Tablet 3 12/15/19 25 Active Clopidogrel Bisulfate 75 MG Oral Tablet (pLAVix) Take 1 Tablet by mouth in the morning. 90 Tablet 5 12/16/19 25 Active LORazepam 0.5 MG Oral Tablet (Ativan)Indication s:SIXTO (generalized anxiety disorder),Symptoma tic carotid artery narrowing without infarction, right,S/P carotid endarterectomy TAKE 1/2 TAB BY MOUTH IN THE MORNING AND EVENING FOR ANXIETY 30 Tablet 12/23/19 25 Active Albuterol Sulfate HFA 108 (90 Base) MCG/ACT Inhalation Aerosol SolutionIndication s:Neovascular glaucoma of both eyes, severe stage,COPD, group A, by GOLD 2017 classification ([facility]),Tobacco use disorder Inhale 2 Puffs by mouth every 4 hours as needed for Wheezing. 18 g 1 12/23/19 25 Active Aspirin 81 MG Oral Tablet Delayed Release Take 1 Tablet by mouth in the morning. Active oxyCODONE HCl 5 MG Oral Tablet (Oxy IR) Take 1 Tablet by mouth every 8 hours as needed for severe pain. 3 Tablet 01/22/2025 9:40 AM EDT 01/22/20 25 Active Hospital, Clinic, or Other Facility Administered Medication Ordered Dose Route Frequency Start Date End Date Status bevaCIZumab (Avastin) inj 1.25 mgIndications:Ocular ischemic syndrome,Retinal neovascularization of right eye 1.25 mg IZ PRN 12/06/2024 12/06/2025 Active ROPivacaine (Naropin) inj 1.5 mgIndications:Ocular ischemic syndrome,Retinal neovascularization of right eye 1.5 mg IJ PRN 12/06/2024 12/06/2025 Active documented as of this encounter (statuses as of 01/27/2025) Active Problems Problem Noted Date Diagnosed Date [...] RT arm Coronary artery disease invo lving cabazon coronary artery of cabaz[place] heart without angina pectoris 10/08/2021 Hx of [...] as of this encounter (statuses as of 01/27/2025) Resolved Problems Problem Noted Date Diagnosed Date Resolved Date Caregiver stress 06/22/2024 12/13/2024 Symptomatic stenosis of righ t carotid artery without infarction 05/19/2024 01/21/2025 Bilateral carotid artery stenosis 10/22/2021 08/11/2023 COPD, severity to be determined 10/08/2021 01/01/2023 Overview: Per COPD GOLD Classification documented as of this encounter (statuses as of 01/27/2025) Immunizations Name Administration Dates Next Due COVID-19 mRNA, LNP-s, No Pre serve, 2-Dose Series (Moderna) 01/23/2021,12/28/2020 Pneumococcal Conjugate Vacci ne, 20-valent ([id number]) 09/02/2022 Pneumococcal Polysaccharide PPV23 (Pneumovax) 09/01/2017 Seasonal [...] on file documented as of this encounter Functional Status * Are you deaf or do you have serious difficulty hearing? Answer Date of Assessment Author No 01/20/2025 2:05 PM EDT Jesus Pena RN * Are you blind or do you have serious difficulty seeing, even when wearing glasses? Answer Date of Assessment Author No 01/20/2025 2:05 PM Jesus Tena RN * Do you have serious difficulty walking or climbing stairs? (5 years old or older) Answer Date of Assessment Author No 01/20/2025 2:05 PM EDT Jesus Pena RN * Do you have difficulty dressing or bathing? (5 years old or older) Answer Date of Assessment Author No 01/20/2025 2:05 PM Jesus eTna RN * Because of a physical, mental, or emotional condition, do you have difficulty doing errands alone such as visiting a doctor’s office or shopping? (15 years old or older) Answer Date of Assessment Author No 01/20/2025 2:05 PM Jesus Tena RN documented as of this encounter Mental Status * Because of a physical, mental, or emotional condition, do you have serious difficulty concentrating, remembering, or making decisions? (5 years old or older) Answer Entry Date Author No 01/20/2025 2:05 PM Jesus Tena RN documented in this encounter Miscellaneous Notes * Telephone Encounter - Brent Sol MD - 01/27/2025 1:58 PM EDT Received call from [facility] re: patient Clotilde Pope who underwent L CEA and retrograde CCA stent with my partner Dr. Rees last week. Patient has had low BP at home intermittently, currently WNL in the [facility] ED. Recommend discussion with medicine team re: medication adjustments/additions. No clear surgical issue that can be corrected based on our discussion via transfer center call. BP checks should be on R upper extremity given L subclavian occlusion documented in this encounter Plan of Treatment Upcoming Encounters Date Type Department Care Team (Late st Contact Info) Description 01/28/2025 8:30 AM EDT Imaging Vascular Lab, [facility] 2nd Floor, [place] [address] [place] [phone] 02/09/2025 1:50 PM EDT Office Visit Vascular Surgery, [facility] [address] [place] [phone] Servando Rees MD [address] [place] [address] 02/16/2025 2:15 PM EDT Office Visit Ophthalmology, [facility] [address] [place] [phone] Ryland Harrison DO [address] [place] [address] 02/22/2025 1:00 PM EDT Office Visit General Internal Medicine Lisa Raza [place] [address] [facility] [place] [address] Kia Goetz MD [address] [facility] [place] [address] Health Maintenance Due Date Last Done Comments DISCUSS TOBACCO CESSATION (REFER TO SMARTSET #6409) 1945 Depression Screening 1959 Alpha-1 Antitrypsin 1965 [...] this encounter Medical Devices Implanted Type Area Ore Tester Device Identifier Shelf Expiration Date Model / Serial / Lot Patch Xenosure [id number] - [id number] - [id number] Implanted:Qty: 1 on 01/20/2025 by Servando Rees MD at OR [facility] Left: Carotid [employer] [id number] 02/14/2030 E0.8P8 / [id number] / [id number] Graft Stent Balloon Expandable Endoprosthesis , 7 Mm 39 Mm 6 Fr 135 Cm Cath Heparin - [id number] Implanted:Qty: 1 on 01/20/2025 by Servando Rees MD at OR [facility] Left: Carotid [employer] [id number] 05/08/2027 [id number] / [id number] / [id number] Graft Stent Balloon Expandable Endoprosthesis , 7 Mm 39 Mm 6 Fr 135 Cm Cath Heparin - [id number] Implanted:Qty: 1 on 01/20/2025 by Servando Rees MD at OR [facility] Left: Carotid [employer] [id number] 12/11/2026 [id number] / [id number] / [id number] Graft Stent Balloon Expandable Endoprosthesis , 7 Mm 29 Mm 6 Fr 135 Cm Cath Heparin - [id number] Implanted:Qty: 1 on 01/20/2025 by Servando Rees MD at OR [facility] Left: Carotid [employer] [id number] 07/16/2027 [id number] / [id number] / [id number] documented as of this encounter Advance Directives * Full Code (Latest Code Status on File) Date Activated Date Inactivated Comments 01/20/2025 10:42 AM 01/22/2025 1:46 PM This order re flects the patients wishes and were consensually agreed upon. Question Answer Comments Discussion of Advance Directives occurred with: Patient Care Teams Energy Assistant Relationship Specialty Start Date End Date Kia Goetz MD [address] [facility] [place] [address] PCP - General Internal Medicine 10/08/21 documented as of this encounter
--- OUTSIDE RECORDS SUMMARY | 2025-01-31 06:33 | External Medical Summary | Summary of Care ---
Author Name Unknown Organization [facility] Address [address] [place] [address] Phone [phone] Care Team Providers Care Graphotype Operator Name Role Phone Kia Goetz MD Primary Care Provider [phone] Reason for Visit * Reason Onset Date Comments Lung Cancer Screening Outreach 01/21/2025 Encounter Details Date Type Department Care Team (Late st Contact Info) Description 01/21/2025 Telephone Thoracic Surg [facility] [address] [place] [address] Phoung Monsivais, RN Lung Cancer Screening Outreach Allergies Active Allergy Reactions Criticality Noted Date Comments Mometasone Furoate 01/08/2022 Blisters sides of mouth Duloxetine Hcl Low 10/08/2021 Not allergic, just doesn't work Levofloxacin High 10/08/2021 Becomes deathly ill documented as of this encounter (statuses as of 01/21/2025) Medications ZyrTEC Allergy 10 MG Oral Capsule (Cetirizine HCl) Take 1 Capsule by mouth in the morning. Suspended Famotidine 20 MG Oral Tablet (Pepcid) Take 1 Tablet by mouth 2 times a day as needed for Heartburn. -uses 2/wk 021 Suspended Aspirin 325 MG Oral TabletIndications :Coronary artery disease involving [place] coronary artery of [place] heart without angina pectoris,Hx of CABG,S/P carotid endarterectomy Take 1 Tablet by mouth in the morning. 1 Tablet 022 2024 Discontinued Acetaminophen 500 MG Oral Tablet (Tylenol)Indicati ons:Headache, unspecified headache type Take by mouth 2 Tablets as needed in the morning AND 2 Tablets as needed at noon AND 2 Tablets as needed in the evening (headache). 100 Tablet 022 Suspended Nitroglycerin 0.4 MG Sublingual Tablet Sublingual (Nitrostat)Indica tions:Coronary artery disease involving [place] coronary artery of [place] heart without angina pectoris Place 1 Tablet under the tongue as needed for Pain, Chest. May repeat 3 times. If chest pain continues, call 911. 25 Tablet 023 Suspended Additional Information Patient not taking.Reported on 01/20/2025 Vitamin D-3 25 MCG (1000 UT) Oral CapsuleIndication s:Longitudinal ridging of nail,Vitamin D insufficiency 1 capsule daily--inc 02/10/2024 024 Suspended Metoprolol Succinate ER 25 MG Oral Tablet Extended Release 24 Hour (toPROL XL)Indications:Co ronary artery disease involving [place] coronary artery of [place] heart without angina pectoris TAKE 1 TABLET BY MOUTH EVERY DAY IN THE MORNING 90 Tablet 3 024 Suspended Atorvastatin Calcium 40 MG Oral Tablet (Lipitor)Indicati ons:Coronary artery disease involving [place] coronary artery of [place] heart without angina pectoris,Dyslipid emia, goal LDL below 70 TAKE 1 TABLET BY MOUTH EVERY DAY IN THE MORNING 90 Tablet 3 024 Suspended Dorzolamide HCl-Timolol Mal 2-0.5 % Ophthalmic Solution (Cosopt Ocumeter Plus) INSTILL 1 DROP INTO THE RIGHT EYE 2 TIMES PER DAY 025 Suspended Nicotine 21 MG/24HR Transdermal Patch 24 Hour (Nicoderm CQ)Indications:Sy mptomatic carotid artery narrowing without infarction, right,Tobacco use disorder,Coronary artery disease involving [place] coronary artery of [place] heart without angina pectoris,Hx of CABG Place 1 Patch over 24 hours topically on the skin in the morning. On upper body/upper arm, change once a day for 6 weeks.. 42 Patch 025 Suspended Ezetimibe 10 MG Oral Tablet (Zetia)Indication s:Coronary artery disease involving [place] coronary artery of [place] heart without angina pectoris,Dyslipid emia, goal LDL below 70 TAKE 1 TABLET BY MOUTH EVERY DAY IN THE MORNING 90 Tablet 3 025 Suspended Clopidogrel Bisulfate 75 MG Oral Tablet (pLAVix) Take 1 Tablet by mouth in the morning. 90 Tablet 5 025 Suspended LORazepam 0.5 MG Oral Tablet (Ativan)Indicatio ns:SIXTO (generalized anxiety disorder),Symptom atic carotid artery narrowing without infarction, right,S/P carotid endarterectomy TAKE 1/2 TAB BY MOUTH IN THE MORNING AND EVENING FOR ANXIETY 30 Tablet 025 Suspended Albuterol Sulfate HFA 108 (90 Base) MCG/ACT Inhalation Aerosol SolutionIndicatio ns:Neovascular glaucoma of both eyes, severe stage,COPD, group A, by GOLD 2017 classification ([facility]),Tobacco use disorder Inhale 2 Puffs by mouth every 4 hours as needed for Wheezing. 18 g 1 025 Suspended Aspirin 81 MG Oral Tablet Delayed Release Take 1 Tablet by mouth in the morning. Suspended documented as of this encounter (statuses as of 01/21/2025) Active Problems Problem Noted Date Diagnosed Date [...] RT arm Coronary artery disease invo lving [place] coronary artery of [place] heart without angina pectoris 10/08/2021 Hx of [...] as of this encounter (statuses as of 01/21/2025) Resolved Problems Problem Noted Date Diagnosed Date Resolved Date Caregiver stress 06/22/2024 12/13/2024 Symptomatic stenosis of righ t carotid artery without infarction 05/19/2024 01/21/2025 Bilateral carotid artery stenosis 10/22/2021 08/11/2023 COPD, severity to be determined 10/08/2021 01/01/2023 Overview: Per COPD GOLD Classification documented as of this encounter (statuses as of 01/21/2025) Immunizations Name Administration Dates Next Due COVID-19 mRNA, LNP-s, No Pre serve, 2-Dose Series (Moderna) 01/23/2021,12/28/2020 Pneumococcal Conjugate Vacci ne, 20-valent (Coprolj54) 09/02/2022 Pneumococcal Polysaccharide PPV23 (Pneumovax) 09/01/2017 Seasonal [...] encounter Miscellaneous Notes * Telephone Encounter - Phuong Monsivais RN - 01/21/2025 10:55 AM EDT Lung Cancer Screening Program (LCSP) High Risk Outreach Call Summary 01/21/2025 Through advanced analysis/trending of this patient's history, they have been identified to have a positive Lung flag and are at a higher risk for lung cancer. This advanced analysis estimates the patient's risk for lung cancer. It only indicates that the patient's chances to have this condition are higher compared to most people. It does not indicate that the patient has this condition, but it is highly recommended the patient have a low dose CT screening for further evaluation. I have contacted the patient regarding lung cancer screening. Patient previously declined or noncompliant. Phuong Monsivais RN documented in this encounter Plan of Treatment Upcoming Encounters Date Type Department Care Team (Late st Contact Info) Description 01/28/2025 8:30 AM EDT Imaging Vascular Lab, [facility] 2nd Floor, [place] [address] [place] [phone] 02/09/2025 1:50 PM EDT Office Visit Vascular Surgery, [facility] [address] [place] [phone] Servando Rees MD [address] [place] [address] 02/16/2025 2:15 PM EDT Office Visit Ophthalmology, [facility] [address] [place] [phone] Ryland Harrison DO [address] [place] [address] 02/22/2025 1:00 PM EDT Office Visit General Internal Medicine [facility] [address] [place] [address] Kia Goetz MD [address] [place] [address] Health Maintenance Due Date Last Done Comments DISCUSS TOBACCO CESSATION (REFER TO SMARTSET #4447) 1945 Depression Screening 1959 Alpha-1 Antitrypsin 1965 [...] PAST YEAR FOR COPD 01/20/2026 01/20/2025 GFR 01/21/2026 01/21/2025, 04/0 12/2024, 01/18/2025, Additional history exists Albumin/Creatinine Ratio 08/11/2026 08/11/2023 [...] this encounter Medical Devices Implanted Type Area Lead Cook Device Identifier Shelf Expiration Date Model / Serial / Lot Patch Xenosure [id number] - [id number] - [id number] Implanted:Qty: 1 on 01/20/2025 by Servando Rees MD at OR [facility] Left: Carotid [employer] [id number] 02/14/2030 E0.8P8 / [id number] / [id number] Graft Stent Balloon Expandable Endoprosthesis , 7 Mm 39 Mm 6 Fr 135 Cm Cath Heparin - [id number] Implanted:Qty: 1 on 01/20/2025 by Servando Rees MD at OR [facility] Left: Carotid [employer] [id number] 05/08/2027 [id number] / [id number] / [id number] Graft Stent Balloon Expandable Endoprosthesis , 7 Mm 39 Mm 6 Fr 135 Cm Cath Heparin - [id number] Implanted:Qty: 1 on 01/20/2025 by Servando Rees MD at OR [facility] Left: Carotid [employer] [id number] 12/11/2026 [id number] / [id number] / [id number] Graft Stent Balloon Expandable Endoprosthesis , 7 Mm 29 Mm 6 Fr 135 Cm Cath Heparin - [id number] Implanted:Qty: 1 on 01/20/2025 by Servando Rees MD at OR [facility] Left: Carotid [employer] [id number] 07/16/2027 [id number] / [id number] / [id number] documented as of this encounter Advance Directives * Full Code (Latest Code Status on File) Date Activated Date Inactivated Comments 01/20/2025 10:42 AM This order ref lects the patients wishes and were consensually agreed upon. Question Answer Comments Discussion of Advance Directives occurred with: Patient Care Teams Graphotype Operator Relationship Specialty Start Date End Date Kia Goetz MD [address] [facility] [place], [place] [address] PCP - General Internal Medicine 10/08/21 documented as of this encounter
--- OUTSIDE RECORDS SUMMARY | 2025-01-31 06:33 | External Medical Summary ---
Author Name Unknown Address Unknown Organization [id number]:[facility] [place] [address] [place] [address] Laboratory Report Ordering Provider Test Date Status RADHA DURAN 01/20/2025 13:52:00 Final Labs in PACU Observation Date Value Abnormality Reference (Units ) Status Troponin T 01/20/2025 13:52:00 39 Above high normal < =14 (ng/L) Final Performing Location [facility] [place] [address] [place] [address]
--- OUTSIDE RECORDS SUMMARY | 2025-01-31 06:33 | External Medical Summary ---
Author Name Unknown Address Unknown Organization [id number][place] [place] [address] [place] [address] Laboratory Report Ordering Provider Test Date Status BRETT WADE 01/21/2025 04:08:00 Final Observation Date Value Abnormality Reference (Units ) Status Troponin T 01/21/2025 04:08:00 27 Above high normal < =14 (ng/L) Final Performing Location LABORATORY C - [address] [place] [address]
--- OUTSIDE RECORDS SUMMARY | 2025-01-31 06:33 | External Medical Summary ---
Author Name Unknown Address Unknown Organization K01:[facility] - [facility] [address] [facility] [address] Laboratory Report Ordering Provider Test Date Status BRETT WADE 01/20/2025 13:22:00 Final Assay measures the level of platelet P2Y12 [...] clopidogrel usage in these patients is unknown. Observation Date Value Abnormality Reference (Units ) Status Platelet aggregation ADP induced [Units/volume] in Blood 01/20/2025 13:22:00 77 Below low normal 182-335 (PRU) Final Performing Location [facility] - [address] [facility] [address]
--- OUTSIDE RECORDS SUMMARY | 2025-01-31 06:33 | External Medical Summary ---
Author Name Unknown Address Unknown Organization : Laboratory Report Ordering Provider Test Date Status BRITNEY ASTORGA 01/20/2025 06:38:57 Final Observation Date Value Abnormality Reference (Units ) Status Glucose Point of Care 01/20/2025 06:38:57 129 Above high normal 70-120 (mg/dL) Final Performing Location
--- OUTSIDE RECORDS SUMMARY | 2025-01-31 06:33 | External Medical Summary ---
Author Name Unknown Address Unknown Organization : Laboratory Report Ordering Provider Test Date Status BRITNEY ASTORGA 01/20/2025 08:22:30 Final NORMAL (NON-HEPARINIZED) 74- 137 SECONDS
HEPARINIZED � � � � � � � � � 200+ � SECONDS
CRITICAL GREATER THAN � � 1000 � SECONDS
null Observation Date Value Abnormality Reference (Units ) Status Kaolin activated time [Units/volume] in Blood 01/20/2025 08:22:30 245 50-1000 (secs) Final Performing Location
--- OUTSIDE RECORDS SUMMARY | 2025-01-31 06:33 | External Medical Summary ---
Author Name Unknown Address Unknown Organization K09:[facility] [place] [address] Laboratory Report Ordering Provider Test Date Status ORESTES STEWART 01/18/2025 13:05:50 Final Observation Date Value Abnormality Reference (Units ) Status SYNC LEUKOCYTES IN BLOOD BY AUTOMATED COUNT 01/18/2025 13:05:50 7.31 4.00-10.80 (K/uL) Final Segs 01/18/2025 13:05:50 60.9 40.0-75.0 (%) Final Lymphs % 01/18/2025 13:05:50 27.4 18.0-42.0 (%) Final Monos 01/18/2025 13:05:50 9.6 1.0-11.0 (%) Final Eosinophils 01/18/2025 13:05:50 1.8 0.0-6.0 (%) Final Basos 01/18/2025 13:05:50 0.3 0.0-2.0 (%) Final Absolute Segs 01/18/2025 13:05:50 4.46 1.80-7.70 (K/uL) Final Lymphs, absolute 01/18/2025 13:05:50 2.00 1.00-4.80 (K/ul) Final Monos, Abs 01/18/2025 13:05:50 0.70 0.00-1.10 (K/uL) Final Eos, Abs 01/18/2025 13:05:50 0.13 0.00-0.70 (K/uL) Final Basos, Abs 01/18/2025 13:05:50 0.02 0.00-0.20 (K/uL) Final Performing Location [facility] [place] [address]
--- OUTSIDE RECORDS SUMMARY | 2025-01-31 06:33 | External Medical Summary | Summary of Care ---
Author Name Unknown Organization [facility] Address [address] [facility] [place] [address] Phone [phone] Care Team Providers Care Director Physical Therapy Name Role Phone Kia Goetz MD Primary Care Provider [phone] Reason for Visit * Reason Comments Outpatient Testing Encounter Details Date Type Department Care Team (Late st Contact Info) Description 01/18/2025 1:10 PM EDT Laboratory Laboratory [facility] [address] [place] [phone] [facility] [address] [place] [address] Symptomatic stenosis of right carotid artery without infarction; Ocular ischemic syndrome; Pre-op testing Allergies Active Allergy Reactions Criticality Noted Date Comments Mometasone Furoate 01/08/2022 Blisters sides of mouth Duloxetine Hcl Low 10/08/2021 Not allergic, just doesn't work Levofloxacin High 10/08/2021 Becomes deathly ill documented as of this encounter (statuses as of 01/18/2025) Medications ZyrTEC Allergy 10 MG Oral Capsule (Cetirizine HCl) Take 1 Capsule by mouth in the morning. Active Famotidine 20 MG Oral Tablet (Pepcid) Take 1 Tablet by mouth 2 times a day as needed for Heartburn. -uses 2/wk Active Aspirin 325 MG Oral TabletIndications: Coronary artery disease involving samish coronary artery of samish heart without angina pectoris,Hx of CABG,S/P carotid endarterectomy Take 1 Tablet by mouth in the morning. 1 Tablet 2 Active Acetaminophen 500 MG Oral Tablet (Tylenol)Indicatio ns:Headache, unspecified headache type Take by mouth 2 Tablets as needed in the morning AND 2 Tablets as needed at noon AND 2 Tablets as needed in the evening (headache). 100 Tablet 2 Active Nitroglycerin 0.4 MG Sublingual Tablet Sublingual (Nitrostat)Indicat ions:Coronary artery disease involving samish coronary artery of samish heart without angina pectoris Place 1 Tablet under the tongue as needed for Pain, Chest. May repeat 3 times. If chest pain continues, call 911. 25 Tablet 3 Active Vitamin D-3 25 MCG (1000 UT) Oral CapsuleIndications :Longitudinal ridging of nail,Vitamin D insufficiency 1 capsule daily--inc 02/10/2024 4 Active Metoprolol Succinate ER 25 MG Oral Tablet Extended Release 24 Hour (toPROL XL)Indications:Cor onary artery disease involving samish coronary artery of samish heart without angina pectoris TAKE 1 TABLET BY MOUTH EVERY DAY IN THE MORNING 90 Tablet 3 4 Active Trelegy Ellipta 100-62.5-25 MCG/ACT Aerosol Powder Breath ActivatedIndicatio ns:Tobacco use disorder,COPD, group A, by GOLD 2017 classification (HCC),Abnormal lung sounds INHALE 1 PUFF BY MOUTH IN THE MORNING. -FROM 08/11/2023. 60 Each 5 4 Active Atorvastatin Calcium 40 MG Oral Tablet (Lipitor)Indicatio ns:Coronary artery disease involving samish coronary artery of samish heart without angina pectoris,Dyslipide bryanna, goal LDL below 70 TAKE 1 TABLET BY MOUTH EVERY DAY IN THE MORNING 90 Tablet 3 4 Active Dorzolamide HCl-Timolol Mal 2-0.5 % Ophthalmic Solution (Cosopt Ocumeter Plus) INSTILL 1 DROP INTO THE RIGHT EYE 2 TIMES PER DAY 5 Active Nicotine 14 MG/24HR Transdermal Patch 24 Hour (Nicoderm CQ)Indications:Ocu lar ischemic syndrome,Symptomat ic carotid artery narrowing without infarction, right,Tobacco use disorder,Coronary artery disease involving samish coronary artery of samish heart without angina pectoris,Hx of CABG Place 1 Patch over 24 hours topically on the skin in the morning. On upper body/outer arm, change once a day for two weeks.. 14 Patch 5 Active Nicotine 7 MG/24HR Transdermal Patch 24 Hour (Nicoderm CQ)Indications:Sym ptomatic carotid artery narrowing without infarction, right,Tobacco use disorder,Coronary artery disease involving samish coronary artery of samish heart without angina pectoris,Hx of CABG Place 1 Patch over 24 hours topically on the skin in the morning. On upper body/outer arm, change once a day for two weeks.. 14 Patch 5 Active Nicotine 21 MG/24HR Transdermal Patch 24 Hour (Nicoderm CQ)Indications:Sym ptomatic carotid artery narrowing without infarction, right,Tobacco use disorder,Coronary artery disease involving samish coronary artery of samish heart without angina pectoris,Hx of CABG Place 1 Patch over 24 hours topically on the skin in the morning. On upper body/upper arm, change once a day for 6 weeks.. 42 Patch 5 Active Ezetimibe 10 MG Oral Tablet (Zetia)Indications :Coronary artery disease involving samish coronary artery of samish heart without angina pectoris,Dyslipide bryanna, goal LDL below 70 TAKE 1 TABLET BY MOUTH EVERY DAY IN THE MORNING 90 Tablet 3 5 Active Clopidogrel Bisulfate 75 MG Oral Tablet (pLAVix) Take 1 Tablet by mouth in the morning. 90 Tablet 5 5 Active Sertraline HCl 50 MG Oral Tablet (Zoloft)Indication s:Adjustment disorder with mixed anxiety and depressed mood,Grief reaction,Neovascul ar glaucoma of both eyes, severe stage Half tablet daily for 8 days then 1 tablet daily with breakfast -st 12/19/2024 30 Tablet 2 5 Active LORazepam 0.5 MG Oral Tablet (Ativan)Indication s:SIXTO (generalized anxiety disorder),Symptoma tic carotid artery narrowing without infarction, right,S/P carotid endarterectomy TAKE 1/2 TAB BY MOUTH IN THE MORNING AND EVENING FOR ANXIETY 30 Tablet 5 Active Albuterol Sulfate HFA 108 (90 Base) MCG/ACT Inhalation Aerosol SolutionIndication s:Neovascular glaucoma of both eyes, severe stage,COPD, group A, by GOLD 2017 classification ([facility]),Tobacco use disorder Inhale 2 Puffs by mouth every 4 hours as needed for Wheezing. 18 g 1 5 Active Hospital, Clinic, or Other Facility Administered Medication Ordered Dose Route Frequency Start Date End Date Status bevaCIZumab (Avastin) inj 1.25 mgIndications:Ocular ischemic syndrome,Retinal neovascularization of right eye 1.25 mg IZ PRN 12/06/2024 12/06/2025 Active ROPivacaine (Naropin) inj 1.5 mgIndications:Ocular ischemic syndrome,Retinal neovascularization of right eye 1.5 mg IJ PRN 12/06/2024 12/06/2025 Active documented as of this encounter (statuses as of 01/18/2025) Active Problems Problem Noted Date Diagnosed Date Neovascular glaucoma of both eyes, severe stage 12/19/2024 Ocular ischemic syndrome 12/16/2024 Stenosis of extracranial carotid artery, right 1 HTN, goal below 140/80 08/11/2024 Symptomatic stenosis of righ t carotid artery without infarction 05/19/2024 Carotid artery aneurysm 05/19/2024 COPD, group A, by GOLD 2017 classification 12/30 Overview: Per COPD GOLD Classification Occlusion of left subclavian artery 01/08/2022 Overview (01/08/2022): All BP to be in RT arm Coronary artery disease invo lving samish coronary artery of samish heart without angina pectoris 10/08/2021 Hx of [...] as of this encounter (statuses as of 01/18/2025) Resolved Problems Problem Noted Date Diagnosed Date Resolved Date Caregiver stress 06/22/2024 12/13/2024 Bilateral carotid artery stenosis 10/22/2021 08/11/2023 COPD, severity to be determined 10/08/2021 01/01/2023 Overview: Per COPD GOLD Classification documented as of this encounter (statuses as of 01/18/2025) Immunizations Name Administration Dates Next Due COVID-19 mRNA, LNP-s, No Pre serve, 2-Dose Series (Moderna) 01/23/2021,12/28/2020 Pneumococcal Conjugate Vacci ne, 20-valent (Axcreav20) 09/02/2022 Pneumococcal Polysaccharide PPV23 (Pneumovax) 09/01/2017 Seasonal [...] Recorded PHQ Adult Total Score 0 08/11/2023 Comments No Sex and Gender Information Value Date Recorded Sex Assigned at Not on file Legal Sex Female 1:53 PM EST Gender Identity Not on file Sexual Orientation Not on file documented as of this encounter Plan of Treatment Upcoming Encounters Date Type Department Care Team (Late st Contact Info) Description 01/20/2025 7:15 AM EDT Hospital Encounter [facility], OPERATING ROOM [facility] [address] [place] [phone] Servando Rees MD [address] [place], [place] [phone] 01/20/2025 7:15 AM EDT - 01/20/2025 10:54 AM EDT [place] [facility] [facility] [place] [place] [address] [place] [phone] Servando Rees MD [address] [place] [address] CAROTID ENDARTERECTOMY 01/28/2025 8:30 AM EDT [facility] [address] [place] [phone] 02/09/2025 1:50 PM EDT Office Visit Vascular Surgery, [facility] [address] [place] [phone] Servando Rees MD [address], [place] [phone] 02/16/2025 2:15 PM EDT Office Visit Ophthalmology, [facility] [address] [place] [phone] Ryland Harrison, [address] [place] [address] 02/22/2025 1:00 PM EDT Office Visit General Internal Medicine [facility] [address] [facility] [place] [address] Kia Goetz MD [address] [facility] [place] [address] Scheduled Procedures Name Priority Associated Diagnoses Date/Ti me CAROTID ENDARTERECTOMY 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 01/20/2025 7:15 AM EDT CAROTID STENT WITH OPEN EXPOSURE WITH RADIOLOGIC SUPERVISION AND INTERPRETATION 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 01/20/2025 7:15 AM EDT Health Maintenance Due Date Last Done Comments DISCUSS TOBACCO CESSATION (REFER TO SMARTSET #0183) 1945 Depression Screening 1959 Alpha-1 Antitrypsin 1965 Hepatitis C Screening 1965 DTap/Tdap Vaccines (1 - Tdap) 1966 Zoster Vaccines (1 of 2) 1966 Lung Cancer Screening 1997 Adult Wellness Visit 2013 DXA Scan 09/04/2022 09/04/2015 COVID-19 Vaccine ( season) 2024 08/20/2021, 01/23/2021, 12/28/2020 Influenza Vaccine (FLU shot) (Season Ended) 2025 08/11/2023, 09/02/2022, 10/08/2021, Additional history exists GFR 08/12/2025 01/18/2025, 07/21, 05/19/2024, Additional history exists HbA1c 08/12/2025 08/12/2024, 01/19, 08/11/2023, Additional history exists O2 ASSESSMENT COMPLETED IN PAST YEAR FOR COPD 12/13/2025 12/13/2024 Albumin/Creatinine Ratio 08/11/2026 08/11/2023 Pneumococcal Vaccine: 50+ [...] documented as of this encounter Medical Devices Not on filedocumented as of this encounter Procedures Procedure Name Priority Date/Time Associated Diagnosis Comments DIFFERENTIAL, AUTOMATED Routine 01/18/2025 1:05 PM EDT 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 Pre-op testing BASIC METABOLIC PANEL Routine 01/18/2025 1:05 PM EDT 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 Pre-op testing CBC Routine 01/18/2025 1:05 PM EDT 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 Pre-op testing CBC Routine 01/18/2025 1:05 PM EDT 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 Pre-op testing documented in this encounter Results * DIFFERENTIAL, AUTOMATED (01/18/2025 1:05 PM EDT) Pathologist [facility] WBC 7.31 4.00 - 10.80 K/uL 01/18/2025 1:13 PM EDT [facility] 56-02 Neutrophils % 60.9 40.0 - 75.0 % 01/18/2025 1:13 PM EDT [facility] 56-02 Lymphocytes % 27.4 18.0 - 42.0 % 01/18/2025 1:13 PM EDT [facility] 56-02 Monocytes % 9.6 1.0 - 11.0 % 01/18/2025 1:13 PM EDT [facility] 56-02 Eosinophils % 1.8 0.0 - 6.0 % 01/18/2025 1:13 PM EDT [facility] 56-02 Basophils % 0.3 0.0 - 2.0 % 01/18/2025 1:13 PM EDT [facility] 56-02 Absolute Neutrophils 4.46 1.80 - 7.70 K/uL 01/18/2025 1:13 PM EDT [facility] 56-02 Absolute Lymphocytes 2.00 1.00 - 4.80 K/ul 01/18/2025 1:13 PM EDT [facility] 56-02 Absolute Monocytes 0.70 0.00 - 1.10 K/uL 01/18/2025 1:13 PM EDT [facility] 56-02 Absolute Eosinophils 0.13 0.00 - 0.70 K/uL 01/18/2025 1:13 PM EDT [facility] 56-02 Absolute Basophils 0.02 0.00 - 0.20 K/uL 01/18/2025 1:13 PM EDT [facility] 56-02 Blood Venous blood specimen / Unknown Venipuncture / Unknown 01/18/2025 1:05 PM EDT 01/18/2025 1:06 PM EDT Gregg Fonseca PA-C LAB BLOOD ORDERABLES Fin al Result [facility] 56 [address] [facility] [place] [id number] * CBC (01/18/2025 1:05 PM EDT) WBC 7.31 4.00 - 10.80 K/uL 01/18/2025 1:13 PM EDT [facility] 56 RBC 4.89 3.85 - 5.15 M/uL 01/18/2025 1:13 PM EDT [facility] 56- HGB 14.2 12.0 - 15.3 g/dL 01/18/2025 1:13 PM EDT [facility] 56 HCT 43.8 36.0 - 45.2 % 01/18/2025 1:13 PM EDT [facility] 56- MCV 89.6 81.5 - 97.5 fL 01/18/2025 1:13 PM EDT [facility] 56 MCH 29.0 27.0 - 34.0 pg 01/18/2025 1:13 PM EDT [facility] 56 MCHC 32.4 32.0 - 36.0 g/dL 01/18/2025 1:13 PM EDT [facility] 56- RDW 14.9 11.5 - 15.5 % 01/18/2025 1:13 PM EDT [facility] 56- PLT 223 140 - 400 K/uL 01/18/2025 1:13 PM EDT [facility] 56- MPV 10.1 6.6 - 11.1 fL 01/18/2025 1:13 PM EDT [facility] 56- Blood Venous blood specimen / Unknown Venipuncture / Unknown 01/18/2025 1:05 PM EDT 01/18/2025 1:06 PM EDT Gregg Fonseca PA-C LAB BLOOD ORDERABLES Fin al Result [facility] 56 [address] [place] [address] * (ABNORMAL) BASIC METABOLIC PANEL (01/18/2025 1:05 PM EDT) BUN 14 6 - 20 mg/dL 01/18/2025 2:18 PM EDT [facility] 56 CREATININE 0.8 0.5 - 1.0 mg/dL 01/18/2025 2:18 PM EDT [address] EGFR 78 >=60 mL/min 01/18/2025 2:18 PM EDT [facility] 56- Comment:eGFR is calculated b ased on the CKD-EPI 2020 equation. SODIUM 139 135 - 146 mmol/L 01/18/2025 2:18 PM EDT [facility] 56- POTASSIUM 4.4 3.5 - 5.1 mmol/L 01/18/2025 2:18 PM EDT [facility] 56 CHLORIDE 103 98 - 107 mmol/L 01/18/2025 2:18 PM EDT [facility] 56 CO2 25 22 - 32 mmol/L 01/18/2025 2:18 PM EDT [facility] 56 ANION GAP 11 7 - 15 mmol/L 01/18/2025 2:18 PM EDT [facility] 56 GLUCOSE 129(H) 70 - 120 mg/dL 01/18/2025 2:18 PM EDT [facility] 56- CALCIUM 9.7 8.4 - 10.2 mg/dL 01/18/2025 2:18 PM EDT [facility] 56 Blood Venous blood specimen / Unknown Venipuncture / Unknown 01/18/2025 1:05 PM EDT 01/18/2025 1:06 PM EDT us Gregg Fonseca PA-C LAB BLOOD ORDERABLES Fin al Result [facility] [address] [facility] [address] documented in this encounter Visit Diagnoses Diagnosis 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 Retinal ischemia 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 Retinal ischemia Pre-op testing Preoperative examination, unspecified 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 Retinal ischemia documented in this encounter Care Teams Director Physical Therapy Relationship Specialty Start Date End Date Kia Goetz MD [address] [place] [address] PCP - General Internal Medicine 10/08/21 documented as of this encounter
--- OUTSIDE RECORDS SUMMARY | 2025-01-31 06:33 | External Medical Summary | Summary of Care ---
Author Name Unknown Organization [facility] Address [address] [facility] [place] [address] Phone [phone] Care Team Providers Care Molder Fitting Name Role Phone Kia Goetz MD Primary Care Provider [phone] Reason for Visit * Reason Comments Follow Up * Clinic-administered Medications (Within 10 days (routine)) - Authorized Specialty Diagnoses / Procedures Referred By Yuan hernandez Referred To Contact Ophthalmology Diagnoses Retinal neovascularization, unspecified, unspecified eye Procedures DE BEVACIZUMAB INJECTION DE INTRAVITREAL NJX PHARMACOLOGIC AGT SPX Ryland Harrison DO [address] [place] [address] Phone: tel: fax: Referral ID Status Reason Start Date Expiration Date V isits Requested Visits Authorized [id number] Authorized Precert 12/07/2024 10/19/2099 [id number] Encounter Details Date Type Department Care Team (Late st Contact Info) Description 01/13/2025 9:00 AM EDT Office Visit Ophthalmology, [facility] [address] [place] [address] Ryland Harrison DO [address] [place] [address] Neovascular glaucoma of left eye, severe stage* Allergies Active Allergy Reactions Criticality Noted Date Comments Mometasone Furoate 01/08/2022 Blisters sides of mouth Duloxetine Hcl Low 10/08/2021 Not allergic, just doesn't work Levofloxacin High 10/08/2021 Becomes deathly ill documented as of this encounter (statuses as of 01/13/2025) Medications ZyrTEC Allergy 10 MG Oral Capsule (Cetirizine HCl) Take 1 Capsule by mouth in the morning. Active Famotidine 20 MG Oral Tablet (Pepcid) Take 1 Tablet by mouth 2 times a day as needed for Heartburn. -uses 2/wk 10/08/20 21 Active Aspirin 325 MG Oral TabletIndications :Coronary artery disease involving lummi coronary artery of lummi heart without angina pectoris,Hx of CABG,S/P carotid endarterectomy Take 1 Tablet by mouth in the morning. 1 Tablet 01/09/20 22 Active Acetaminophen 500 MG Oral Tablet (Tylenol)Indicati ons:Headache, unspecified headache type Take by mouth 2 Tablets as needed in the morning AND 2 Tablets as needed at noon AND 2 Tablets as needed in the evening (headache). 100 Tablet 01/09/20 22 Active Nitroglycerin 0.4 MG Sublingual Tablet Sublingual (Nitrostat)Indica tions:Coronary artery disease involving lummi coronary artery of lummi heart without angina pectoris Place 1 Tablet under the tongue as needed for Pain, Chest. May repeat 3 times. If chest pain continues, call 911. 25 Tablet 08/11/20 23 Active Vitamin D-3 25 MCG (1000 UT) Oral CapsuleIndication s:Longitudinal ridging of nail,Vitamin D insufficiency 1 capsule daily--inc 02/10/2024 02/10/20 24 Active Metoprolol Succinate ER 25 MG Oral Tablet Extended Release 24 Hour (toPROL XL)Indications:Co ronary artery disease involving lummi coronary artery of lummi heart without angina pectoris TAKE 1 TABLET BY MOUTH EVERY DAY IN THE MORNING 90 Tablet 3 05/01/20 24 Active Trelegy Ellipta 100-62.5-25 MCG/ACT Aerosol Powder Breath ActivatedIndicati ons:Tobacco use disorder,COPD, group A, by GOLD 2017 classification (HCC),Abnormal lung sounds INHALE 1 PUFF BY MOUTH IN THE MORNING. -FROM 08/11/2023. 60 Each 5 07/06/20 24 Active Atorvastatin Calcium 40 MG Oral Tablet (Lipitor)Indicati ons:Coronary artery disease involving lummi coronary artery of lummi heart without angina pectoris,Dyslipid emia, goal LDL below 70 TAKE 1 TABLET BY MOUTH EVERY DAY IN THE MORNING 90 Tablet 3 09/15/20 24 Active Dorzolamide HCl-Timolol Mal 2-0.5 % Ophthalmic Solution (Cosopt Ocumeter Plus) INSTILL 1 DROP INTO THE RIGHT EYE 2 TIMES PER DAY 12/01/19 25 Active Nicotine 14 MG/24HR Transdermal Patch 24 Hour (Nicoderm CQ)Indications:Oc ular ischemic syndrome,Symptoma tic carotid artery narrowing without infarction, right,Tobacco use disorder,Coronary artery disease involving lummi coronary artery of lummi heart without angina pectoris,Hx of CABG Place 1 Patch over 24 hours topically on the skin in the morning. On upper body/outer arm, change once a day for two weeks.. 14 Patch 12/13/19 25 Active Nicotine 7 MG/24HR Transdermal Patch 24 Hour (Nicoderm CQ)Indications:Sy mptomatic carotid artery narrowing without infarction, right,Tobacco use disorder,Coronary artery disease involving lummi coronary artery of lummi heart without angina pectoris,Hx of CABG Place 1 Patch over 24 hours topically on the skin in the morning. On upper body/outer arm, change once a day for two weeks.. 14 Patch 12/13/19 25 Active Nicotine 21 MG/24HR Transdermal Patch 24 Hour (Nicoderm CQ)Indications:Sy mptomatic carotid artery narrowing without infarction, right,Tobacco use disorder,Coronary artery disease involving lummi coronary artery of lummi heart without angina pectoris,Hx of CABG Place 1 Patch over 24 hours topically on the skin in the morning. On upper body/upper arm, change once a day for 6 weeks.. 42 Patch 12/13/19 25 Active Ezetimibe 10 MG Oral Tablet (Zetia)Indication s:Coronary artery disease involving lummi coronary artery of lummi heart without angina pectoris,Dyslipid emia, goal LDL below 70 TAKE 1 TABLET BY MOUTH EVERY DAY IN THE MORNING 90 Tablet 3 12/15/19 25 Active Clopidogrel Bisulfate 75 MG Oral Tablet (pLAVix) Take 1 Tablet by mouth in the morning. 90 Tablet 5 12/16/19 25 Active Sertraline HCl 50 MG Oral Tablet (Zoloft)Indicatio ns:Adjustment disorder with mixed anxiety and depressed mood,Grief reaction,Neovascu lar glaucoma of both eyes, severe stage Half tablet daily for 8 days then 1 tablet daily with breakfast -st 12/19/2024 30 Tablet 2 12/20/19 25 Active LORazepam 0.5 MG Oral Tablet (Ativan)Indicatio ns:SIXTO (generalized anxiety disorder),Symptom atic carotid artery narrowing without infarction, right,S/P carotid endarterectomy TAKE 1/2 TAB BY MOUTH IN THE MORNING AND EVENING FOR ANXIETY 30 Tablet 12/23/19 25 Active Albuterol Sulfate HFA 108 (90 Base) MCG/ACT Inhalation Aerosol SolutionIndicatio ns:Neovascular glaucoma of both eyes, severe stage,COPD, group A, by GOLD 2017 classification ([facility]),Tobacco use disorder Inhale 2 Puffs by mouth every 4 hours as needed for Wheezing. 18 g 1 12/23/19 25 Active Butalbital-Acetam inophen 50-325 MG Oral TabletIndications :Lumbar degenerative disc disease,Chronic neck and back pain Take 1 Tablet by mouth daily as needed for Pain, Moderate or Pain, Severe (neck pain). 30 Tablet 05/10/20 24 025 Discontinued Hospital, Clinic, or Other Facility Administered Medication Ordered Dose Route Frequency Start Date End Date Status bevaCIZumab (Avastin) inj 1.25 mgIndications:Ocular ischemic syndrome,Retinal neovascularization of right eye 1.25 mg IZ PRN 12/06/2024 12/06/2025 Active ROPivacaine (Naropin) inj 1.5 mgIndications:Ocular ischemic syndrome,Retinal neovascularization of right eye 1.5 mg IJ PRN 12/06/2024 12/06/2025 Active documented as of this encounter (statuses as of 01/13/2025) Active Problems Problem Noted Date Diagnosed Date [...] RT arm Coronary artery disease invo lving lummi coronary artery of lummi heart without angina pectoris 10/08/2021 Hx of [...] as of this encounter (statuses as of 01/13/2025) Resolved Problems Problem Noted Date Diagnosed Date Resolved Date Caregiver stress 06/22/2024 12/13/2024 Bilateral carotid artery stenosis 10/22/2021 08/11/2023 COPD, severity to be determined 10/08/2021 01/01/2023 Overview: Per COPD GOLD Classification documented as of this encounter (statuses as of 01/13/2025) Immunizations Name Administration Dates Next Due COVID-19 mRNA, LNP-s, No Pre serve, 2-Dose Series (Moderna) 01/23/2021,12/28/2020 Pneumococcal Conjugate Vacci ne, 20-valent ([id number]) 09/02/2022 Pneumococcal Polysaccharide PPV23 (Pneumovax) 09/01/2017 Seasonal [...] on file documented as of this encounter Progress Notes * Ryland Harrison DO - 01/13/2025 9:00 AM EDT Encounter Diagnoses Name Primary? Neovascular glaucoma of left eye, severe stage Yes TIMEOUT PROCEDURE: correct patient identity-YES correct procedure and consent-YES verified side and site-YES correct patient position-YES all necessary equipment/prior studies present-YES reviewed special requirements of this patient-YES PROCEDURE: Intravitreal injection of Avastin 1.25mg OS INFORMED CONSENT: Patient is aware that this is an off-label use of Avastin and that Avastin is not FDA approved for this use. Risks, benefits and alternatives have been discussed with the patient. Risks include, but are not limited to: retinal tears, detachments, hemorrhage, glaucoma, infection, cataracts, need formore procedures and the potential risk of arterial thromboembolic events following use of intravitreal VEGF inhibitors defined as nonfatal stroke, nonfatal myocardial infarction or vascular . Patient is aware of these risks and consents to the procedure. DESCRIPTION OF PROCEDURE: The procedure site was confirmed. Topical proparacaine was applied to the surface of the eye after which subconjunctival anesthetic was administered. The area was prepped in the standard aseptic manner with 5% Betadine solution. An eyelid speculum was placed and 0.05 ml of a 25mg/ml solution of Avastin was injected 3.75 mm posterior to the limbus into the midvitreous cavity with a 30 gauge short needle. The Betadine was flushed from the eye, the eye speculum was removed and optic nerve perfusion was insured. The patient tolerated the procedure without difficulty and was given followup instructions and instructed to use ophthalmic ointment 3x/day as needed. Ryland Harrison DO, performed the procedure in its entirety. documented in this encounter Nursing Notes * Elsi Davison RN - 01/13/2025 9:10 AM EDT Clotilde Pope to receive second Avastin 2.75 mg Injection of the Left eye. Correct eye confirmed with patient and marked by Ryland Harrison DO Avastin 2.75 mg lot # [id number] Exp. Date: 02/12/25 * Elsi Davison RN - 01/13/2025 8:59 AM EDT Clotilde Pope is a 79 year old year old female who presents for Ocular Ischemic syndrome OU. Last Office Visit: 01/06/2025 (in office), Visit date not found (telemedicine) Patient currently states no change in vision. Are you diabetic? No Do you drive? no OCT image(s) not taken this visit documented in this encounter Plan of Treatment Upcoming Encounters Date Type Department Care Team (Latest Contact Info) Description 01/20/2025 12:45 PM EDT Hospital Encounter [facility], OPERATING ROOM [facility] [address] [facility] [place] [phone] Servando Rees MD [address] [facility], [place] [id number] 01/20/2025 12:45 PM EDT - 01/20/2025 4:44 PM EDT Surgery OR [facility], OPERATING ROOM [facility] [address] [facility] [place] [phone] Servando Rees MD [address] [facility], [place] [id number] CAROTID ENDARTERECTOMY 01/28/2025 8:30 AM EDT Imaging Vascular Lab, [facility] [address] [place] [phone] 02/09/2025 1:50 PM EDT Office Visit Vascular Surgery, [facility] [address] [place] [address] Servando Rees MD [address] [place], [place] [id number] 02/22/2025 1:00 PM EDT Office Visit General Internal Medicine [facility] [address] [facility] [place] [address] Kia Goetz MD [address] [place] [address] Scheduled Procedures Name Priority Associated Diagnoses Date/Ti me CAROTID ENDARTERECTOMY 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 01/20/2025 12:45 PM EDT CAROTID STENT WITH OPEN EXPOSURE WITH RADIOLOGIC SUPERVISION AND INTERPRETATION 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 01/20/2025 12:45 PM EDT Health Maintenance Due Date Last Done Comments DISCUSS TOBACCO CESSATION (REFER TO SMARTSET #7021) 1945 Alpha-1 Antitrypsin 1965 Hepatitis C Screening 1965 DTap/Tdap Vaccines (1 - Tdap) 1966 Zoster Vaccines (1 of 2) 1966 Lung Cancer Screening 1997 Adult Wellness Visit 2013 DXA Scan 09/04/2022 09/04/2015 COVID-19 Vaccine (4 - season) 2024 08/20/2021, 01/23/2021, 12/28/2020 Influenza Vaccine (FLU shot) (#1) 2024 08/11/2023, 09/02/2022, 10/08/2021, Additional history exists Depression Screening 08/11/2024 08/11/2023 GFR 08/12/2025 08/12/2024, 07/3 10/2023, 04/01/2024, Additional history exists HbA1c 08/12/2025 08/12/2024, 04/2 [...] Not on filedocumented as of this encounter Visit Diagnoses Diagnosis 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75 mg Given 12/15/2024 9:43 AM EST 1.25 mg Ey e Left ROPivacaine (Naropin) inj 1.5 mg 1.5 mg, Injection, PRN Other, Starting on Fri12/06/24 at 1405, Until Fri12/06/25 at 1404, For 365 daysIndications:Ocular ischemic syndrome,Retinal neovascularization of right eye Given 01/13/2025 9:13 AM EDT 1.5 mg Eye L eft Given 01/06/2025 1:29 PM EDT 1.5 mg Ey e Right Given 12/15/2024 9:43 AM EST 1.5 mg Ey e Left documented in this encounter Care Teams Molder Fitting Relationship Specialty Start Date End Date Kia Goetz MD [address] [facility] [place], [place] [address] PCP - General Internal Medicine 10/08/21 documented as of this encounter
--- OUTSIDE RECORDS SUMMARY | 2025-01-31 06:33 | External Medical Summary ---
Author Name Unknown Address Unknown Organization [id number]:[facility] [place] - [address] [place] [address] Laboratory Report Ordering Provider Test Date Status BRETT WADE 01/21/2025 04:08:00 Final Observation Date Value Abnormality Reference (Units ) Status BUN 01/21/2025 04:08:00 11 6-20 (mg/dL) Final Creatinine 01/21/2025 04:08:00 0.8 0.5-1.0 (mg/dL) Final Glomerular filtration rate/1.73 sq M.predicted [Volume Rate/Area] in Serum, Plasma or Blood by Creatinine-based formula (CKD-EPI) 01/21/2025 04:08:00 77 >=60 (mL/min) Final eGFR is calculated based on the CKD-EPI 2020 equation. Sodium 01/21/2025 04:08:00 136 135-146 (m mol/L) Final Potassium 01/21/2025 04:08:00 4.3 3.5-5.1 (m mol/L) Final Cl 01/21/2025 04:08:00 103 98-107 (mm ol/L) Final CO2 01/21/2025 04:08:00 25 22-32 (mmo l/L) Final Anion gap 01/21/2025 04:08:00 8 7-15 (mmol /L) Final Glucose 01/21/2025 04:08:00 122 Above high normal 70 -120 (mg/dL) Final Calcium 01/21/2025 04:08:00 8.0 Below low normal 8.4 -10.2 (mg/dL) Final Performing Location [facility] - [address] [place] [address]
--- OUTSIDE RECORDS SUMMARY | 2025-01-31 06:33 | External Medical Summary ---
Author Name Unknown Address Unknown Organization [id number]:[facility] [place] [address] [facility] [address] Laboratory Report Ordering Provider Test Date Status BRETT WADE 01/21/2025 04:08:00 Final Observation Date Value Abnormality Reference (Units ) Status WBC, Total 01/21/2025 04:08:00 10.38 4.00-10.80 (K/uL) Final RBC 01/21/2025 04:08:00 3.54 3.85-5.15 (M/uL) Final Hemoglobin 01/21/2025 04:08:00 10.4 Below low normal 12.0-15.3 (g/dL) Final HCT 01/21/2025 04:08:00 32.5 Below low normal 36.0-45.2 (%) Final MCV 01/21/2025 04:08:00 91.8 81.5-97.5 (fL) Final MCH 01/21/2025 04:08:00 29.4 27.0-34.0 (pg) Final MCHC 01/21/2025 04:08:00 32.0 32.0-36.0 (g/dL) Final RDW 01/21/2025 04:08:00 14.5 11.5-15.5 (%) Final Platelets 01/21/2025 04:08:00 211 140-400 (K/uL) Final MPV 01/21/2025 04:08:00 10.5 6.6-11.1 (fL) Final Nucleated erythrocytes/100 leukocytes [Ratio] in Blood by Automated count 01/21/2025 04:08:00 0 <=0 (/100 WBCs) Final Performing Location [facility] - [address] [place] [address]
--- OUTSIDE RECORDS SUMMARY | 2025-01-31 06:33 | External Medical Summary ---
Author Name Unknown Address Unknown Organization K09:[facility] [place] [address] Laboratory Report Ordering Provider Test Date Status ORESTES STEWART 01/18/2025 13:05:50 Final Observation Date Value Abnormality Reference (Units ) Status BUN 01/18/2025 13:05:50 14 6-20 (mg/dL) Final Creatinine 01/18/2025 13:05:50 0.8 0.5-1.0 (mg/dL) Final Glomerular filtration rate/1.73 sq M.predicted [Volume Rate/Area] in Serum, Plasma or Blood by Creatinine-based formula (CKD-EPI) 01/18/2025 13:05:50 78 >=60 (mL/min) Final eGFR is calculated based on the CKD-EPI 2020 equation. Sodium 01/18/2025 13:05:50 139 135-146 (m mol/L) Final Potassium 01/18/2025 13:05:50 4.4 3.5-5.1 (m mol/L) Final Cl 01/18/2025 13:05:50 103 98-107 (mm ol/L) Final CO2 01/18/2025 13:05:50 25 22-32 (mmo l/L) Final Anion gap 01/18/2025 13:05:50 11 7-15 (mmol /L) Final Glucose 01/18/2025 13:05:50 129 Above high normal 70 -120 (mg/dL) Final Calcium 01/18/2025 13:05:50 9.7 8.4-10.2 ( mg/dL) Final Performing Location [facility] [place] [address]
--- OUTSIDE RECORDS SUMMARY | 2025-01-31 06:33 | External Medical Summary ---
Author Name Unknown Address Unknown Organization : Laboratory Report Ordering Provider Test Date Status BRITNEY ASTORGA 01/20/2025 09:56:05 Final NORMAL (NON-HEPARINIZED) 74- 137 SECONDS
HEPARINIZED � � � � � � � � � 200+ � SECONDS
CRITICAL GREATER THAN � � 1000 � SECONDS
null Observation Date Value Abnormality Reference (Units ) Status Kaolin activated time [Units/volume] in Blood 01/20/2025 09:56:05 124 50-1000 (secs) Final Performing Location
--- OUTSIDE RECORDS SUMMARY | 2025-01-31 06:33 | External Medical Summary | Summary of Care ---
Author Name Unknown Organization [facility] Address [address] [facility] [address] Phone [phone] Care Team Providers Care Fur Cleaner Name Role Phone Kia Goetz MD Primary Care Provider [phone] Reason for Visit * Reason Onset Date Comments Health Maintenance 01/13/2025 Encounter Details Date Type Department Care Team (Late st Contact Info) Description 01/13/2025 Telephone General Internal Medicine [facility] [address] [place] [address] Kia Goetz MD [address] [place] [facility] [place] [address] Health Maintenance Allergies Active Allergy Reactions Criticality Noted Date [...] day as needed for Heartburn. -uses 2/wk 1 Active Aspirin 325 MG Oral TabletIndications: Coronary artery disease involving [place] coronary artery of [place] heart without angina pectoris,Hx of CABG,S/P carotid [...] Tablet Sublingual (Nitrostat)Indicat ions:Coronary artery disease involving [place] coronary artery of [place] heart without angina pectoris Place 1 Tablet [...] Hour (toPROL XL)Indications:Cor onary artery disease involving [place] coronary artery of [place] heart without angina pectoris TAKE 1 TABLET [...] Oral Tablet (Lipitor)Indicatio ns:Coronary artery disease involving [place] coronary artery of [place] heart without angina pectoris,Dyslipide bryanna, goal LDL [...] infarction, right,Tobacco use disorder,Coronary artery disease involving [place] coronary artery of [place] heart without angina pectoris,Hx of CABG Place 1 Patch over 24 hours topically on the skin in the morning. On upper body/outer arm, change once a day for two weeks.. 14 Patch 5 Active Nicotine 7 MG/24HR Transdermal Patch 24 Hour (Nicoderm CQ)Indications:Sym ptomatic carotid artery narrowing without infarction, right,Tobacco use disorder,Coronary artery disease involving [place] coronary artery of [place] heart without angina pectoris,Hx of CABG Place 1 Patch over 24 hours topically on the skin in the morning. On upper body/outer arm, change once a day for two weeks.. 14 Patch 5 Active Nicotine 21 MG/24HR Transdermal Patch 24 Hour (Nicoderm CQ)Indications:Sym ptomatic carotid artery narrowing without infarction, right,Tobacco use disorder,Coronary artery disease involving [place] coronary artery of [place] heart without angina pectoris,Hx of CABG Place 1 Patch over 24 hours topically on the skin in the morning. On upper body/upper arm, change once a day for 6 weeks.. 42 Patch 5 Active Ezetimibe 10 MG Oral Tablet (Zetia)Indications :Coronary artery disease involving [place] coronary artery of [place] heart without angina pectoris,Dyslipide bryanna, goal LDL [...] A, by GOLD 2017 classification ([facility]),Tobacco use disorder Inhale 2 Puffs by [...] RT arm Coronary artery disease invo lving [place] coronary artery of [place] heart without angina pectoris 10/08/2021 Hx of [...] (Moderna) 01/23/2021,12/28/2020 Pneumococcal Conjugate Vacci ne, 20-valent ([id number]) 09/02/2022 Pneumococcal Polysaccharide PPV23 (Pneumovax) 09/01/2017 Seasonal [...] encounter Miscellaneous Notes * Telephone Encounter - Violette Burnham LPN - 01/13/2025 11:36 AM EDT Care Gaps Comprehensive Care Outreach Last Office/Telemedicine Visit: 12/13/2024 (in office), Visit date not found (telemedicine) Next Office Visit: 02/22/2025 Hemoglobin AIC Results: Lab Results Component Value Date/Time HEMOGLOBIN A1C - [facility] 5.8 (H) 08/12/2024 08:58 AM HEMOGLOBIN A1C - [facility] 6.2 (H) 02/10/2024 12:29 PM HEMOGLOBIN A1C - [facility] 6.3 (H) 08/11/2023 12:45 PM BP Readings from Last 1 Encounters: 12/16/24 114/62 Reviewed Health Maintenance below: Health Maintenance Topic Date Due DISCUSS TOBACCO CESSATION (REFER TO SMARTSET #9474) Never done Alpha-1 Antitrypsin Never done Hepatitis C Screening Never done DTap/Tdap Vaccines (1 - Tdap) Never done Zoster Vaccines (1 of 2) Never done Lung Cancer Screening Never done Adult Wellness Visit Never done DXA Scan 09/04/2022 Dexa Awv At eye doctor Care Gap Outreach Action Taken: [email or web address] message sent and Outreach not indicated documented in this encounter Plan of Treatment Upcoming Encounters Date Type Department Care Team (Latest Contact Info) Description 01/20/2025 12:45 PM EDT Hospital Encounter [place] [facility] OPERATING ROOM [facility] [address] [place] [phone] Servando Rees MD [address] [place], [place] [id number] 01/20/2025 12:45 PM EDT - 01/20/2025 4:44 PM EDT Surgery OR [facility], OPERATING ROOM [facility] [address] [place] [address] Servando Rees MD [address] [facility] [place] [id number] CAROTID ENDARTERECTOMY 01/28/2025 8:30 AM EDT Imaging Vascular Lab, [facility] 2nd [facility] [address] [place] [phone] 02/09/2025 1:50 PM EDT Office Visit Vascular Surgery, [facility] [address] [place] [phone] Servando Rees MD [address] [facility] [place] [id number] 02/22/2025 1:00 PM EDT Office Visit General Internal Medicine [place] [facility] Hsieh [address] [facility] [place] [address] Kia Goetz MD [address] [facility] [place] [address] Scheduled Procedures Name Priority Associated Diagnoses Date/Ti me CAROTID ENDARTERECTOMY 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 01/20/2025 12:45 PM EDT CAROTID STENT WITH OPEN EXPOSURE WITH RADIOLOGIC SUPERVISION AND INTERPRETATION 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 01/20/2025 12:45 PM EDT Health Maintenance Due Date Last Done Comments DISCUSS TOBACCO CESSATION (REFER TO SMARTSET #4649) 1945 Alpha-1 Antitrypsin 1965 Hepatitis C Screening [...] Not on filedocumented as of this encounter Care Teams Fur Cleaner Relationship Specialty Start Date End Date Kia Goetz MD [address] [place] [address] PCP - General Internal Medicine 10/08/21 documented as of this encounter
--- OUTSIDE RECORDS SUMMARY | 2025-01-31 06:33 | External Medical Summary ---
Author Name Unknown Address Unknown Organization K01:LABORATORY [facility] [place] - [address] [facility] [address] Laboratory Report Ordering Provider Test Date Status BRETT WADE 01/22/2025 05:12:00 Final Observation Date Value Abnormality Reference (Units ) Status WBC, Total 01/22/2025 05:12:00 8.95 4.00-10.80 (K/uL) Final RBC 01/22/2025 05:12:00 3.33 3.85-5.15 (M/uL) Final Hemoglobin 01/22/2025 05:12:00 9.5 Below low normal 12.0-15.3 (g/dL) Final HCT 01/22/2025 05:12:00 31.0 Below low normal 36.0-45.2 (%) Final MCV 01/22/2025 05:12:00 93.1 81.5-97.5 (fL) Final MCH 01/22/2025 05:12:00 28.5 27.0-34.0 (pg) Final MCHC 01/22/2025 05:12:00 30.6 32.0-36.0 (g/dL) Final RDW 01/22/2025 05:12:00 14.6 11.5-15.5 (%) Final Platelets 01/22/2025 05:12:00 182 140-400 (K/uL) Final MPV 01/22/2025 05:12:00 10.5 6.6-11.1 (fL) Final Nucleated erythrocytes/100 leukocytes [Ratio] in Blood by Automated count 01/22/2025 05:12:00 0 <=0 (/100 WBCs) Final Performing Location LAB[facility]ATORY [facility] - [address] [place] [address]
--- OUTSIDE RECORDS SUMMARY | 2025-01-31 06:33 | External Medical Summary | Summary of Care ---
Author Name Unknown Organization [facility] Address [address] [facility] [place] [address] Phone [phone] Care Team Providers Care Biodiesel Technology Manager Name Role Phone Kia Goetz MD Primary Care Provider [phone] Encounter Details Date Type Department Care Team (Late st Contact Info) Description 01/07/2025 Telephone Ophthalmology, [facility] [address] [place] [address] Ryland Harrison, [address] [place] [address] Allergies Active Allergy Reactions Criticality Noted Date Comments Mometasone Furoate 01/08/2022 Blisters sides of mouth Duloxetine Hcl Low 10/08/2021 Not allergic, just doesn't work Levofloxacin High 10/08/2021 Becomes deathly ill documented as of this encounter (statuses as of 01/07/2025) Medications ZyrTEC Allergy 10 MG Oral Capsule (Cetirizine HCl) Take 1 Capsule by mouth in the morning. Active Famotidine 20 MG Oral Tablet (Pepcid) Take 1 Tablet by mouth 2 times a day as needed for Heartburn. -uses 2/wk 10/08/20 Active Aspirin 325 MG Oral TabletIndications: Coronary artery disease involving [place] coronary artery of [place] heart without angina pectoris,Hx of CABG,S/P carotid endarterectomy Take 1 Tablet by mouth in the morning. 1 Tablet 01/09/20 Active Acetaminophen 500 MG Oral Tablet (Tylenol)Indicatio ns:Headache, unspecified headache type Take by mouth 2 Tablets as needed in the morning AND 2 Tablets as needed at noon AND 2 Tablets as needed in the evening (headache). 100 Tablet 01/09/20 22 Active Nitroglycerin 0.4 MG Sublingual Tablet Sublingual (Nitrostat)Indicat ions:Coronary artery disease involving [place] coronary artery of [place] heart without angina pectoris Place 1 Tablet [...] Hour (toPROL XL)Indications:Cor onary artery disease involving [place] coronary artery of [place] heart without angina pectoris TAKE 1 TABLET BY MOUTH EVERY DAY IN THE MORNING 90 Tablet 3 05/01/20 24 Active Butalbital-Acetami nophen 50-325 MG Oral TabletIndications: Lumbar degenerative disc disease,Chronic neck and back pain Take 1 Tablet by mouth daily as needed for Pain, Moderate or Pain, Severe (neck pain). 30 Tablet 05/10/20 24 Active Additional Information Patient not taking.Reported on 12/16/2024 Reyna Ellipta 100-62.5-25 MCG/ACT Aerosol Powder Breath ActivatedIndicatio ns:Tobacco use disorder,COPD, group A, by GOLD 2017 classification (HCC),Abnormal lung sounds INHALE 1 PUFF BY MOUTH IN THE MORNING. -FROM 08/11/2023. 60 Each 5 07/06/20 24 Active Atorvastatin Calcium 40 MG Oral Tablet (Lipitor)Indicatio ns:Coronary artery disease involving [place] coronary artery of [place] heart without angina pectoris,Dyslipide bryanna, goal LDL [...] infarction, right,Tobacco use disorder,Coronary artery disease involving [place] coronary artery of [place] heart without angina pectoris,Hx of CABG Place 1 Patch over 24 hours topically on the skin in the morning. On upper body/outer arm, change once a day for two weeks.. 14 Patch 12/13/19 25 Active Nicotine 7 MG/24HR Transdermal Patch 24 Hour (Nicoderm CQ)Indications:Sym ptomatic carotid artery narrowing without infarction, right,Tobacco use disorder,Coronary artery disease involving [place] coronary artery of [place] heart without angina pectoris,Hx of CABG Place 1 Patch over 24 hours topically on the skin in the morning. On upper body/outer arm, change once a day for two weeks.. 14 Patch 12/13/19 25 Active Nicotine 21 MG/24HR Transdermal Patch 24 Hour (Nicoderm CQ)Indications:Sym ptomatic carotid artery narrowing without infarction, right,Tobacco use disorder,Coronary artery disease involving [place] coronary artery of [place] heart without angina pectoris,Hx of CABG Place 1 Patch over 24 hours topically on the skin in the morning. On upper body/upper arm, change once a day for 6 weeks.. 42 Patch 12/13/19 25 Active Ezetimibe 10 MG Oral Tablet (Zetia)Indications :Coronary artery disease involving [place] coronary artery of [place] heart without angina pectoris,Dyslipide bryanna, goal LDL [...] stage,COPD, group A, by GOLD 2017 classification (HCC),Tobacco use disorder Inhale 2 Puffs by mouth every 4 hours as needed for Wheezing. 18 g 1 12/23/19 Active Hospital, Clinic, or Other Facility Administered Medication Ordered Dose Route Frequency Start Date End Date Status bevaCIZumab (Avastin) inj 1.25 mgIndications:Ocular ischemic syndrome,Retinal neovascularization of right eye 1.25 mg IZ PRN 12/06/2024 12/06/2025 Active ROPivacaine (Naropin) inj 1.5 mgIndications:Ocular ischemic syndrome,Retinal neovascularization of right eye 1.5 mg IJ PRN 12/06/2024 12/06/2025 Active documented as of this encounter (statuses as of 01/07/2025) Active Problems Problem Noted Date Diagnosed Date [...] RT arm Coronary artery disease invo lving [place] coronary artery of [place] heart without angina pectoris 10/08/2021 Hx of [...] as of this encounter (statuses as of 01/07/2025) Resolved Problems Problem Noted Date Diagnosed Date Resolved Date Caregiver stress 06/22/2024 12/13/2024 Bilateral carotid artery stenosis 10/22/2021 08/11/2023 COPD, severity to be determined 10/08/2021 01/01/2023 Overview: Per COPD GOLD Classification documented as of this encounter (statuses as of 01/07/2025) Immunizations Name Administration Dates Next Due COVID-19 mRNA, LNP-s, No Pre serve, 2-Dose Series (Moderna) 01/23/2021,12/28/2020 Pneumococcal Conjugate Vacci ne, 20-valent ([id number]) 09/02/2022 Pneumococcal Polysaccharide PPV23 (Pneumovax) 09/01/2017 Seasonal [...] encounter Miscellaneous Notes * Telephone Encounter - Susan QuezadaLUANN - 01/07/2025 9:51 AM EDT Spoke with pt to tell her she is scheduled for a low vision eval with Dr. Kt Sanchez 01/26/25 at 12:00. LUANN Harding 01/07/2025 9:52 AM documented in this encounter Plan of Treatment Upcoming Encounters Date Type Department Care Team (Late st Contact Info) Description 01/13/2025 9:00 AM EDT Office Visit Ophthalmology, [facility] [address] [place] [address] Ryland Harrison DO [address] [place] [address] 01/20/2025 12:51 PM EDT Hospital Encounter OR [facility], OPERATING ROOM [facility] [address] [place] [phone] Servando Rees MD [address] [place] [address] 01/20/2025 12:51 PM EDT - 01/20/2025 4:50 PM EDT Surgery OR [facility], OPERATING ROOM [facility] [address] [facility] [place] [address] Servando Rees MD [address] [place] [address] CAROTID ENDARTERECTOMY 01/28/2025 8:30 AM EDT [facility] [address] [place] [phone] 02/09/2025 1:50 PM EDT Office Visit Vascular Surgery, [facility] [address] [place] [phone] Servando Rees MD [address] [place], [place] [phone] 02/22/2025 1:00 PM EDT Office Visit General Internal Medicine [place] [address] [facility] [place] [address] Kia Goetz MD [address] [facility] [place] [address] Scheduled Procedures Name Priority Associated Diagnoses Date/Ti me CAROTID ENDARTERECTOMY 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 01/20/2025 12:51 PM EDT CAROTID STENT WITH OPEN EXPOSURE WITH RADIOLOGIC SUPERVISION AND INTERPRETATION 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 01/20/2025 12:51 PM EDT Health Maintenance Due Date Last Done Comments DISCUSS TOBACCO CESSATION (REFER TO SMARTSET #3299) 1945 Alpha-1 Antitrypsin 1965 Hepatitis C Screening [...] filedocumented as of this encounter Care Teams Biodiesel Technology Manager Relationship Specialty Start Date End Date Kia Goetz MD [address] [facility] [address] PCP - General Internal Medicine 10/08/21 documented as of this encounter
--- OUTSIDE RECORDS SUMMARY | 2025-01-31 06:33 | External Medical Summary ---
Author Name Unknown Address Unknown Organization K01:[facility] [place] [address] [place] [address] Laboratory Report Ordering Provider Test Date Status BRETT WADE 01/20/2025 10:50:38 Final Labs in PACU Observation Date Value Abnormality Reference (Units ) Status WBC, Total 01/20/2025 10:50:38 10.30 4.00-10.80 (K/uL) Final RBC 01/20/2025 10:50:38 3.73 3.85-5.15 (M/uL) Final Hemoglobin 01/20/2025 10:50:38 11.2 Below low normal 12.0-15.3 (g/dL) Final HCT 01/20/2025 10:50:38 33.0 Below low normal 36.0-45.2 (%) Final MCV 01/20/2025 10:50:38 88.5 81.5-97.5 (fL) Final MCH 01/20/2025 10:50:38 30.0 27.0-34.0 (pg) Final MCHC 01/20/2025 10:50:38 33.9 32.0-36.0 (g/dL) Final RDW 01/20/2025 10:50:38 14.1 11.5-15.5 (%) Final Platelets 01/20/2025 10:50:38 209 140-400 (K/uL) Final MPV 01/20/2025 10:50:38 10.0 6.6-11.1 (fL) Final Nucleated erythrocytes/100 leukocytes [Ratio] in Blood by Automated count 01/20/2025 10:50:38 0 <=0 (/100 WBCs) Final Performing Location [facility] [place] [address] [place] [address]
--- OUTSIDE RECORDS SUMMARY | 2025-01-31 06:33 | External Medical Summary ---
Author Name Unknown Address Unknown Organization K09:[facility] [place] [address] Laboratory Report Ordering Provider Test Date Status ORESTES STEWART 01/18/2025 13:05:50 Final Observation Date Value Abnormality Reference (Units ) Status WBC, Total 01/18/2025 13:05:50 7.31 4.00-10.8 0 (K/uL) Final RBC 01/18/2025 13:05:50 4.89 3.85-5.15 (M/uL) Final Hemoglobin 01/18/2025 13:05:50 14.2 12.0-15.3 (g/dL) Final HCT 01/18/2025 13:05:50 43.8 36.0-45.2 (%) Final MCV 01/18/2025 13:05:50 89.6 81.5-97.5 (fL) Final MCH 01/18/2025 13:05:50 29.0 27.0-34.0 (pg) Final MCHC 01/18/2025 13:05:50 32.4 32.0-36.0 (g/dL) Final RDW 01/18/2025 13:05:50 14.9 11.5-15.5 (%) Final Platelets 01/18/2025 13:05:50 223 140-400 (K /uL) Final MPV 01/18/2025 13:05:50 10.1 6.6-11.1 ( fL) Final Performing Location [facility] [place] [address]
--- OUTSIDE RECORDS SUMMARY | 2025-01-31 06:33 | External Medical Summary ---
Author Name Unknown Address Unknown Organization K01:[facility] [place] [address] [place] [address] Laboratory Report Ordering Provider Test Date Status BRETT WADE 01/20/2025 10:50:38 Final Warfarin Therapy
INR: 2 .0-3.0 conventional anticoagulation
INR: 2.5- 3.5 high intensity anticoagulation Observation Date Value Abnormality Reference (Units ) Status PT 01/20/2025 10:50:38 14.5 11.6-15.2 (seconds) Final INR 01/20/2025 10:50:38 1.1 0.8-1.2 Final Performing Location [facility] [place] [address] [place] [address]
--- OUTSIDE RECORDS SUMMARY | 2025-01-31 06:33 | External Medical Summary | Summary of Care ---
Author Name Unknown Organization [facility] Address [address] [facility] [place] [address] Phone [phone] Care Team Providers Care Detective Captain Name Role Phone Kia Goetz MD Primary Care Provider [phone] Reason for Visit * Reason Comments Follow Up Encounter Details Date Type Department Care Team (Late st Contact Info) Description 01/06/2025 12:45 PM EDT Office Visit Ophthalmology, [facility] [address] [facility] [place] [address] Ryland Harrison DO [address] [place] [address] Ocular ischemic syndrome*; Rubeosis iridis of both eyes; Retinal neovascularization of right eye; Neovascular glaucoma of both eyes, severe stage Allergies Active Allergy Reactions Criticality Noted Date Comments Mometasone Furoate 01/08/2022 Blisters sides of mouth Duloxetine Hcl Low 10/08/2021 Not allergic, just doesn't work Levofloxacin High 10/08/2021 Becomes deathly ill documented as of this encounter (statuses as of 01/06/2025) Medications ZyrTEC Allergy 10 MG Oral Capsule (Cetirizine HCl) Take 1 Capsule by mouth in the morning. Active Famotidine 20 MG Oral Tablet (Pepcid) Take 1 Tablet by mouth 2 times a day as needed for Heartburn. -uses 2/wk 10/08/20 21 Active Aspirin 325 MG Oral TabletIndications: Coronary artery disease involving rampart coronary artery of rampart heart without angina pectoris,Hx of CABG,S/P carotid endarterectomy Take 1 Tablet by mouth in the morning. 1 Tablet 01/09/20 22 Active Acetaminophen 500 MG Oral Tablet (Tylenol)Indicatio ns:Headache, unspecified headache type Take by mouth 2 Tablets as needed in the morning AND 2 Tablets as needed at noon AND 2 Tablets as needed in the evening (headache). 100 Tablet 01/09/20 22 Active Nitroglycerin 0.4 MG Sublingual Tablet Sublingual (Nitrostat)Indicat ions:Coronary artery disease involving rampart coronary artery of rampart heart without angina pectoris Place 1 Tablet [...] Hour (toPROL XL)Indications:Cor onary artery disease involving rampart coronary artery of rampart heart without angina pectoris TAKE 1 TABLET BY MOUTH EVERY DAY IN THE MORNING 90 Tablet 3 05/01/20 24 Active Butalbital-Acetami nophen 50-325 MG Oral TabletIndications: Lumbar degenerative disc disease,Chronic neck and back pain Take 1 Tablet by mouth daily as needed for Pain, Moderate or Pain, Severe (neck pain). 30 Tablet 05/10/20 24 Active Additional Information Patient not taking.Reported on 12/16/2024 Trelemiguel ángel Ellipta 100-62.5-25 MCG/ACT Aerosol Powder Breath ActivatedIndicatio ns:Tobacco use disorder,COPD, group A, by GOLD 2017 classification (HCC),Abnormal lung sounds INHALE 1 PUFF BY MOUTH IN THE MORNING. -FROM 08/11/2023. 60 Each 5 07/06/20 24 Active Atorvastatin Calcium 40 MG Oral Tablet (Lipitor)Indicatio ns:Coronary artery disease involving rampart coronary artery of rampart heart without angina pectoris,Dyslipide bryanna, goal LDL [...] infarction, right,Tobacco use disorder,Coronary artery disease involving rampart coronary artery of rampart heart without angina pectoris,Hx of CABG Place 1 Patch over 24 hours topically on the skin in the morning. On upper body/outer arm, change once a day for two weeks.. 14 Patch 12/13/19 25 Active Nicotine 7 MG/24HR Transdermal Patch 24 Hour (Nicoderm CQ)Indications:Sym ptomatic carotid artery narrowing without infarction, right,Tobacco use disorder,Coronary artery disease involving rampart coronary artery of rampart heart without angina pectoris,Hx of CABG Place 1 Patch over 24 hours topically on the skin in the morning. On upper body/outer arm, change once a day for two weeks.. 14 Patch 12/13/19 25 Active Nicotine 21 MG/24HR Transdermal Patch 24 Hour (Nicoderm CQ)Indications:Sym ptomatic carotid artery narrowing without infarction, right,Tobacco use disorder,Coronary artery disease involving rampart coronary artery of rampart heart without angina pectoris,Hx of CABG Place 1 Patch over 24 hours topically on the skin in the morning. On upper body/upper arm, change once a day for 6 weeks.. 42 Patch 12/13/19 25 Active Ezetimibe 10 MG Oral Tablet (Zetia)Indications :Coronary artery disease involving rampart coronary artery of rampart heart without angina pectoris,Dyslipide bryanna, goal LDL [...] Wheezing. 18 g 1 12/23/19 25 Active Hospital, Clinic, or Other Facility Administered Medication Ordered Dose Route Frequency Start Date End Date Status bevaCIZumab (Avastin) inj 1.25 mgIndications:Ocular ischemic syndrome,Retinal neovascularization of right eye 1.25 mg IZ PRN 12/06/2024 12/06/2025 Active ROPivacaine (Naropin) inj 1.5 mgIndications:Ocular ischemic syndrome,Retinal neovascularization of right eye 1.5 mg IJ PRN 12/06/2024 12/06/2025 Active documented as of this encounter (statuses as of 01/06/2025) Active Problems Problem Noted Date Diagnosed Date [...] RT arm Coronary artery disease invo lving rampart coronary artery of rampart heart without angina pectoris 10/08/2021 Hx of [...] as of this encounter (statuses as of 01/06/2025) Resolved Problems Problem Noted Date Diagnosed Date Resolved Date Caregiver stress 06/22/2024 12/13/2024 Bilateral carotid artery stenosis 10/22/2021 08/11/2023 COPD, severity to be determined 10/08/2021 01/01/2023 Overview: Per COPD GOLD Classification documented as of this encounter (statuses as of 01/06/2025) Immunizations Name Administration Dates Next Due COVID-19 mRNA, LNP-s, No Pre serve, 2-Dose Series (Moderna) 01/23/2021,12/28/2020 Pneumococcal Conjugate Vacci ne, 20-valent ([id number]) 09/02/2022 Pneumococcal Polysaccharide PPV23 (Pneumovax) 09/01/2017 Seasonal [...] Progress Notes * Ryland Harrison DO - 01/06/2025 12:45 PM EDT [facility] [place] Nursing Notes: Susan Quezada TECH 01/06/25 0565 Signed Clotilde Pope is a 79 year old year old female who presents for Ocular Ischemic Syndrome OU. Last Office Visit: 12/28/2024 (in office), Visit date not found (telemedicine) Patient currently states vision is worse in the left eye Are you diabetic? No. Do you check your blood sugars daily? YES. Did not measure this morning. LastHemoglobin A1C: Lab Results Component Value Date/Time HGBA1C 5.8 (H) 08/12/2024 08:58 AM HGBA1C 6.2 (H) 02/10/2024 12:29 PM HGBA1C 6.3 (H) 08/11/2023 12:45 PM HGBA1C 5.9 (H) 06/20/2021 12:[address] no OCT image(s) of both eyes acquired and filed/scanned into chart. Elsi Davison RN 01/06/25 1329 Signed Clotilde Pope to receive second Avastin 2.75 mg Injection of the Right eye. Correct eye confirmed with patient and marked by Ryland Harrison DO Avastin 2.75 mg lot # [id number] Exp. Date: 02/10/25 Base Eye Exam Visual Acuity (Snellen - Linear) Right Left Dist sc 20/80 -1 Dist ph sc NI NI Only seeing the tops of letters OD Tonometry (Tonopen, 12:52 PM) Right Left Pressure 19 16 Pupils Dark Light Shape React APD Right 5 5 Round none None Left 4 4 Round none None Visual Andres (Counting fingers) Right Left Full Unable to check OD VF - pt became very emotional Extraocular Movement Right Left Full, Ortho Full, Ortho Neuro/Psych Oriented x3: Yes Mood/Affect: Normal Dilation Both eyes: 0.5% Proparacaine @ 12:50 PM Dilation #2 Both eyes: 1.0% Mydriacyl, 2.5% Phenylephrine @ 12:52 PM Dilation #3 Both eyes: 1.0% Mydriacyl @ 12:55 PM EXTERNAL: The ocular adnexae are unremarkable. SLE: Lids/Lashes: wnl OU Conjunctiva/Sclera: quiet OU Cornea: MDF OU; clear OU Anterior Chamber: deep and quiet OU Iris: regressed NVI OU Lens: 2+mixed cataract OU GONIOSCOPY: 01/06/2025 OD: 75-80%% closed w/ NVA OS: 50-60%% closed w/ resolved NVA Dilated fundus exam OD: vitreous: mild-moderate VH optic nerve: 0.25, regressed NVD, no edema/pallor macula: splinter and blot hemes, temporal Hollenhorst plaque vessels: dilated veins periphery: mid periph hemes, no RT/RD Dilated fundus exam OS: 12/06/24 vitreous: clear optic nerve: 0.3, no edema/pallor/NVD macula: dot hemes vessels: dilated veins periphery: mid periph dot hemes, no RT/RD OCT Interpretation: OD: thin, no irf/srf, no pvd OS: 12/16/24: no irf/srf, no pvd A/P: 1. 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 Rees/vascular surgery 12/16/24 -Avastin OS 12/15/24 -PRP OS 12/28/24 -initiate low vision eval w/ [facility]/ Dr. Puneet Sanchez 2. 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 Cataracts OU -monitor 4. MDF OU -monitor Follow Up: Return for 1 week for Avastin OS; also needs low vision harleen hairston/ Puneet Hernandezo. | For: 1 week for Avastin OS; also needs low vision harleen hairston/ Puneet HernandezoF/u for Avastin OS Ryland Harrison DO CC: Pete Pope, OD CC: PCP: Kia Goetz MD TIMEOUT PROCEDURE: correct patient identity-YES correct procedure and consent-YES verified side and site-YES correct patient position-YES all necessary equipment/prior studies present-YES reviewed special requirements of this patient-YES PROCEDURE: Intravitreal injection of Avastin 1.25mg OD INFORMED CONSENT: Patient is aware that this [...] Nursing Notes * Elsi Davison RN - 01/06/2025 1:27 PM EDT Clotilde Pope to receive second Avastin 2.75 mg Injection of the Right eye. Correct eye confirmed with patient and marked by Ryland Harrison DO Avastin 2.75 mg lot # [id number] Exp. Date: 02/10/25 * Susan Quezada TECH - 01/06/2025 12:45 PM EDT Clotilde Pope is a 79 year old year old female who presents for Ocular Ischemic Syndrome OU. Last Office Visit: 12/28/2024 (in office), Visit date not found (telemedicine) Patient currently states vision is worse in the left eye Are you diabetic? No. Do you check your blood sugars daily? YES. Did not measure this morning. LastHemoglobin A1C: Lab Results Component Value Date/Time HGBA1C 5.8 (H) 08/12/2024 08:58 AM HGBA1C 6.2 (H) 02/10/2024 12:29 PM HGBA1C 6.3 (H) 08/11/2023 12:45 PM HGBA1C 5.9 (H) 06/20/2021 12:[address]? no OCT image(s) of both eyes acquired and filed/scanned into chart. documented in this encounter Plan of Treatment Upcoming Encounters Date Type Department Care Team (Late st Contact Info) Description 01/13/2025 9:00 AM EDT Office Visit Ophthalmology, [facility] [address] [place] [address] Ryland Harrison DO [address] [place] [address] 01/20/2025 12:51 PM EDT Hospital Encounter OR C, OPERATING ROOM [facility] [address] [place] [address] Servando Rees MD [address] [facility] [place] [id number] 01/20/2025 12:51 PM EDT - 01/20/2025 4:50 PM EDT Surgery OR [facility], OPERATING ROOM [facility] [address] [facility] [phone] Servando Rees MD [address] [place] [address] CAROTID ENDARTERECTOMY 01/28/2025 8:30 AM EDT Imaging Vascular Lab, [facility] [address] [facility] [address] [place] [phone] 02/09/2025 1:50 PM EDT Office Visit Vascular Surgery, [facility] [address] [place] [phone] Servando Rees MD [address] [place] [address] 02/22/2025 1:00 PM EDT Office Visit General Internal Medicine [facility] [address] [place] [address] Kia Goetz MD [address] [place] [address] Scheduled Procedures Name Priority Associated Diagnoses Date/Ti me CAROTID ENDARTERECTOMY 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 01/20/2025 12:51 PM EDT CAROTID STENT WITH OPEN EXPOSURE WITH RADIOLOGIC SUPERVISION AND INTERPRETATION 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 01/20/2025 12:51 PM EDT Health Maintenance Due Date Last Done Comments DISCUSS TOBACCO CESSATION (REFER TO SMARTSET #0156) 1945 Alpha-1 Antitrypsin 1965 Hepatitis C Screening [...] without infarction 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- Primary 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 Retinal neovascularization NOS Neovascular glaucoma of both eyes, severe stage 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 Retinal ischemia documented in this encounter Administered Medications Active Administered Medications - up to 3 most recent administrations Medication Order MAR Action Action Date Dose Rate Site bevaCIZumab (Avastin) inj 1.25 mg 1.25 mg, Intravitreal, PRN Other, Starting on Fri12/06/24 at 1405, Until Fri12/06/25 at 1404, For 365 daysIndications:Ocular ischemic syndrome,Retinal neovascularization of right eye Given 01/06/2025 1:29 PM EDT 2.75 mg Given 12/15/2024 9:43 AM EST 1.25 mg E ye Left Given 12/06/2024 2:24 PM EST 2.75 mg Ey e Right ROPivacaine (Naropin) inj 1.5 mg 1.5 mg, Injection, PRN Other, Starting on Fri12/06/24 at 1405, Until Fri12/06/25 at 1404, For 365 daysIndications:Ocular ischemic syndrome,Retinal neovascularization of right eye Given 01/06/2025 1:29 PM EDT 1.5 mg Eye R ight Given 12/15/2024 9:43 AM EST 1.5 mg Ey e Left Given 12/06/2024 2:23 PM EST 1.5 mg Ey e Right documented in this encounter Care Teams Detective Captain Relationship Specialty Start Date End Date Kia Goetz MD [address] [place] [address] PCP - General Internal Medicine 10/08/21 documented as of this encounter"
--- OUTSIDE RECORDS SUMMARY | 2025-01-31 06:33 | External Medical Summary | Summary of Care ---
Author Name Unknown Organization [facility] Address [address] [place] [address] Phone [phone] Care Team Providers Care Commercial Announcer Name Role Phone Kia Goetz MD Primary Care Provider [phone] Encounter Details Date Type Department Care Team (Late st Contact Info) Description 01/19/2025 External Data Patient Risk Medial Allergies Active Allergy Reactions Criticality Noted Date Comments Mometasone Furoate 01/08/2022 Blisters sides of mouth Duloxetine Hcl Low 10/08/2021 Not allergic, just doesn't work Levofloxacin High 10/08/2021 Becomes deathly ill documented as of this encounter (statuses as of 01/19/2025) Medications ZyrTEC Allergy 10 MG Oral Capsule (Cetirizine HCl) Take 1 Capsule by mouth in the morning. Active Famotidine 20 MG Oral Tablet (Pepcid) Take 1 Tablet by mouth 2 times a day as needed for Heartburn. -uses 2/wk 1 Active Aspirin 325 MG Oral TabletIndications: Coronary artery disease involving [place] coronary artery of [place] heart without angina pectoris,Hx of CABG,S/P carotid [...] Tablet Sublingual (Nitrostat)Indicat ions:Coronary artery disease involving [place] coronary artery of [place] heart without angina pectoris Place 1 Tablet [...] Hour (toPROL XL)Indications:Cor onary artery disease involving [place] coronary artery of [place] heart without angina pectoris TAKE 1 TABLET [...] Oral Tablet (Lipitor)Indicatio ns:Coronary artery disease involving [place] coronary artery of [place] heart without angina pectoris,Dyslipide bryanna, goal LDL [...] infarction, right,Tobacco use disorder,Coronary artery disease involving [place] coronary artery of [place] heart without angina pectoris,Hx of CABG Place 1 Patch over 24 hours topically on the skin in the morning. On upper body/outer arm, change once a day for two weeks.. 14 Patch 5 Active Nicotine 7 MG/24HR Transdermal Patch 24 Hour (Nicoderm CQ)Indications:Sym ptomatic carotid artery narrowing without infarction, right,Tobacco use disorder,Coronary artery disease involving [place] coronary artery of [place] heart without angina pectoris,Hx of CABG Place 1 Patch over 24 hours topically on the skin in the morning. On upper body/outer arm, change once a day for two weeks.. 14 Patch 5 Active Nicotine 21 MG/24HR Transdermal Patch 24 Hour (Nicoderm CQ)Indications:Sym ptomatic carotid artery narrowing without infarction, right,Tobacco use disorder,Coronary artery disease involving [place] coronary artery of [place] heart without angina pectoris,Hx of CABG Place 1 Patch over 24 hours topically on the skin in the morning. On upper body/upper arm, change once a day for 6 weeks.. 42 Patch 5 Active Ezetimibe 10 MG Oral Tablet (Zetia)Indications :Coronary artery disease involving [place] coronary artery of [place] heart without angina pectoris,Dyslipide bryanna, goal LDL [...] as of this encounter (statuses as of 01/19/2025) Active Problems Problem Noted Date Diagnosed Date [...] RT arm Coronary artery disease invo lving [place] coronary artery of [place] heart without angina pectoris 10/08/2021 Hx of [...] as of this encounter (statuses as of 01/19/2025) Resolved Problems Problem Noted Date Diagnosed Date Resolved Date Caregiver stress 06/22/2024 12/13/2024 Bilateral carotid artery stenosis 10/22/2021 08/11/2023 COPD, severity to be determined 10/08/2021 01/01/2023 Overview: Per COPD GOLD Classification documented as of this encounter (statuses as of 01/19/2025) Immunizations Name Administration Dates Next Due COVID-19 mRNA, LNP-s, No Pre serve, 2-Dose Series (Moderna) 01/23/2021,12/28/2020 Pneumococcal Conjugate Vacci ne, 20-valent ([id number]) 09/02/2022 Pneumococcal Polysaccharide PPV23 (Pneumovax) 09/01/2017 Seasonal [...] EDT Hospital Encounter OR [facility], [facility] [address] [place] [address] Servando Rees MD [address] [place] [address] 01/20/2025 7:15 AM EDT - 01/20/2025 10:54 AM EDT Surgery OR C, OPERATING [place] [address] [place] [phone] Servando Rees MD [address] [place] [address] CAROTID ENDARTERECTOMY 01/28/2025 8:30 AM EDT Imaging Vascular Lab, [facility] II 2nd Floor, [place] [address] [place] [phone] 02/09/2025 1:50 PM EDT Office Visit Vascular Surgery, [facility] [address] [place] [phone] Servando Rees MD [address] [facility] [place] [address] 02/16/2025 2:15 PM EDT Office Visit Ophthalmology, [facility] [address] [place] [phone] Ryland Harrison DO [address] [place] [address] 02/22/2025 1:00 PM EDT Office Visit General Internal Medicine [facility] [address] [place] [address] Kia Goetz MD [address] [place] [address] Scheduled Procedures Name Priority Associated Diagnoses Date/Ti me CAROTID ENDARTERECTOMY 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 01/20/2025 7:15 AM EDT CAROTID STENT WITH OPEN EXPOSURE WITH RADIOLOGIC SUPERVISION AND INTERPRETATION 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 01/20/2025 7:15 AM EDT Health Maintenance Due Date Last Done Comments DISCUSS TOBACCO CESSATION (REFER TO SMARTSET #4615) 1945 Depression Screening 1959 Alpha-1 Antitrypsin 1965 Hepatitis C Screening 1965 DTap/Tdap Vaccines (1 - Tdap) 1966 Zoster Vaccines (1 of 2) 1966 Lung Cancer Screening 1997 Adult Wellness Visit 2013 DXA Scan 09/04/2022 09/04/2015 COVID-19 Vaccine ( season) 2024 08/20/2021, 01/23/2021, 12/28/2020 Influenza Vaccine (FLU shot) (Season Ended) 2025 08/11/2023, 09/02/2022, 10/08/2021, Additional history exists HbA1c 08/12/2025 08/12/2024, 01/19, 08/11/2023, Additional history exists O2 ASSESSMENT COMPLETED IN PAST YEAR FOR COPD 12/13/2025 12/13/2024 GFR 01/18/2026 01/18/2025, 07/21, 05/19/2024, Additional history exists Albumin/Creatinine Ratio 08/11/2026 08/11/2023 [...] filedocumented as of this encounter Care Teams Commercial Announcer Relationship Specialty Start Date End Date Kia Goetz MD [address] [place] [address] PCP - General Internal Medicine 10/08/21 documented as of this encounter
--- OUTSIDE RECORDS SUMMARY | 2025-01-31 06:33 | External Medical Summary ---
Author Name Unknown Address Unknown Organization [id number]:[facility] [place] - [address] [place] [address] Laboratory Report Ordering Provider Test Date Status BRETT WADE 01/20/2025 10:50:38 Final Labs in PACU Observation Date Value Abnormality Reference (Units ) Status Troponin T 01/20/2025 10:50:38 47 Above high normal < =14 (ng/L) Final Performing Location [facility] [place] - [address] [place] [address]
--- OUTSIDE RECORDS SUMMARY | 2025-01-31 06:33 | External Medical Summary ---
Author Name Unknown Address Unknown Organization [id number]:[facility] [place] [facility] [place] [facility] [place] [address] [place] [address] Laboratory Report Ordering Provider Test Date Status ROGERRADHA 01/20/2025 06:41:36 Final Observation Date Value Abnormality Reference (Units ) Status ABO 01/20/2025 06:41:36 O Final RH 01/20/2025 06:41:36 Negative Final RED BLOOD CELL ANTIBODY SCREEN 01/20/2025 06:41:36 Negative Final SPECIMEN EXPIRATION DATE 01/20/2025 06:41:36 01/23/2025 23:59 Final Performing Location [facility] [place] [facility] [place] [facility] [place] [address] [place] [address]
--- OUTSIDE RECORDS SUMMARY | 2025-01-31 06:33 | External Medical Summary ---
Author Name Unknown Address Unknown Organization [id number]:[facility] [place] [facility] - [address] [place] [address] Laboratory Report Ordering Provider Test Date Status RADHA DURAN 01/20/2025 06:41:36 Final Observation Date Value Abnormality Reference (Units ) Status ABO 01/20/2025 06:41:36 O Final RH 01/20/2025 06:41:36 Negative Final Performing Location [facility] [place] [facility] - [address] [place] [address]
--- OUTSIDE RECORDS SUMMARY | 2025-01-31 06:33 | External Medical Summary ---
Author Name Unknown Address Unknown Organization [id number]:[facility] [place] [address] [place] [address] Laboratory Report Ordering Provider Test Date Status RADHA DURAN 01/21/2025 04:08:00 Final Observation Date Value Abnormality Reference (Units ) Status Iron 01/21/2025 04:08:00 49 33-151 (ug /dL) Final Iron-binding capacity 01/21/2025 04:08:00 287 250-425 (ug/dL) Final Transferrin Sat % 01/21/2025 04:08:00 17 15 -55 (%) Final Performing Location [facility] [place] [address] [place] [address]
--- OUTSIDE RECORDS SUMMARY | 2025-01-31 06:33 | External Medical Summary ---
Author Name Unknown Address Unknown Organization [id number]:[facility] [place] - [address] [place] [address] Laboratory Report Ordering Provider Test Date Status BRETT WADE 01/22/2025 05:12:00 Final Observation Date Value Abnormality Reference (Units ) Status BUN 01/22/2025 05:12:00 10 6-20 (mg/dL) Final Creatinine 01/22/2025 05:12:00 0.8 0.5-1.0 (mg/dL) Final Glomerular filtration rate/1.73 sq M.predicted [Volume Rate/Area] in Serum, Plasma or Blood by Creatinine-based formula (CKD-EPI) 01/22/2025 05:12:00 82 >=60 (mL/min) Final eGFR is calculated based on the CKD-EPI 2020 equation. Sodium 01/22/2025 05:12:00 140 135-146 (m mol/L) Final Potassium 01/22/2025 05:12:00 4.3 3.5-5.1 (m mol/L) Final Cl 01/22/2025 05:12:00 104 98-107 (mm ol/L) Final CO2 01/22/2025 05:12:00 25 22-32 (mmo l/L) Final Anion gap 01/22/2025 05:12:00 11 7-15 (mmol /L) Final Glucose 01/22/2025 05:12:00 118 70-120 (mg /dL) Final Calcium 01/22/2025 05:12:00 8.2 Below low normal 8.4 -10.2 (mg/dL) Final Performing Location [facility] [place] - [address] [place] [address]
--- OUTSIDE RECORDS SUMMARY | 2025-01-31 06:33 | External Medical Summary ---
Author Name Unknown Address Unknown Organization K01:[facility] - [address] [place] [employer] [address] Laboratory Report Ordering Provider Test Date Status BRETT WADE 01/20/2025 10:50:38 Final Labs in PACU Observation Date Value Abnormality Reference (Units ) Status BUN 01/20/2025 10:50:38 11 6-20 (mg/dL) Final Creatinine 01/20/2025 10:50:38 0.7 0.5-1.0 (mg/dL) Final Glomerular filtration rate/1.73 sq M.predicted [Volume Rate/Area] in Serum, Plasma or Blood by Creatinine-based formula (CKD-EPI) 01/20/2025 10:50:38 >90 >=60 (mL/min) Final eGFR is calculated based on the CKD-EPI 2020 equation. Sodium 01/20/2025 10:50:38 137 135-146 (m mol/L) Final Potassium 01/20/2025 10:50:38 4.2 3.5-5.1 (m mol/L) Final Cl 01/20/2025 10:50:38 105 98-107 (mm ol/L) Final CO2 01/20/2025 10:50:38 18 Below low normal 22- 32 (mmol/L) Final Anion gap 01/20/2025 10:50:38 14 7-15 (mmol /L) Final Glucose 01/20/2025 10:50:38 183 Above high normal 70 -120 (mg/dL) Final Calcium 01/20/2025 10:50:38 7.4 Below low normal 8.4 -10.2 (mg/dL) Final Performing Location [facility] - [address] [place] [address]
--- OUTSIDE RECORDS SUMMARY | 2025-01-31 06:34 | External Medical Summary | Summary of Care ---
Author Name Unknown Organization [facility] Address [address] [facility] [place] [address] Phone [phone] Care Team Providers Care Mechanical Maintenance Technician Name Role Phone Kia Goetz MD Primary Care Provider [phone] Reason for Visit * Reason Comments Eye Problem Encounter Details Date Type Department Care Team (Late st Contact Info) Description 12/08/2024 12:45 PM EST Office Visit Ophthalmology, [facility] [address] [facility] [place] [address] Ryland Harrison DO [address] [place] [address] Neovascular glaucoma of both eyes, severe stage*; Ocular ischemic syndrome; Retinal neovascularization of right eye; Vitreous hemorrhage of right eye (HCC) Allergies Active Allergy Reactions Criticality Noted Date [...] needed for Heartburn. -uses 2/wk 021 Active Aspirin 325 MG Oral TabletIndications :Coronary artery disease involving lummi coronary artery of lummi heart without angina pectoris,Hx of CABG,S/P carotid endarterectomy Take 1 Tablet by mouth in the morning. 1 Tablet 022 Active Acetaminophen 500 MG Oral Tablet (Tylenol)Indicati [...] chest pain continues, call 911. 25 Tablet Active Vitamin D-3 25 MCG (1000 UT) Oral CapsuleIndication s:Longitudinal ridging of nail,Vitamin D insufficiency 1 capsule daily--inc 02/10/2024 024 Active Metoprolol Succinate ER 25 MG Oral Tablet Extended Release 24 Hour (toPROL XL)Indications:Co ronary artery disease involving lummi coronary artery of lummi heart without angina pectoris TAKE 1 TABLET BY MOUTH EVERY DAY IN THE MORNING 90 Tablet 3 024 Active Butalbital-Acetam inophen 50-325 MG Oral TabletIndications :Lumbar degenerative disc disease,Chronic neck and back pain Take 1 Tablet by mouth daily as needed for Pain, Moderate or Pain, Severe (neck pain). 30 Tablet Active Additional Information Patient not taking.Reported on 12/16/2024 Trelegy Ellipta 100-62.5-25 MCG/ACT Aerosol Powder Breath ActivatedIndicati ons:Tobacco use disorder,COPD, group A, by GOLD 2017 classification ([facility]),Abnormal lung sounds INHALE 1 PUFF BY MOUTH IN THE MORNING. -FROM 08/11/2023. 60 Each 5 Active Atorvastatin Calcium 40 MG Oral Tablet [...] EYE 2 TIMES PER DAY 025 Active Ezetimibe 10 MG Oral Tablet (Zetia)Indication s:Coronary artery disease involving lummi coronary artery of lummi heart without angina pectoris,Dyslipid emia, goal LDL below 70 TAKE 1 TABLET BY MOUTH EVERY DAY IN THE MORNING 90 Tablet 3 024 2024 Discontinued Ventolin HFA 108 (90 Base) MCG/ACT Inhalation Aerosol SolutionIndicatio ns:COPD, group A, by GOLD 2017 classification (HCC),Tobacco use disorder Inhale 2 Puffs by mouth every 4 hours as needed for Wheezing. 18 g 1 024 2024 Discontinued(R efill) HYDROcodone-Aceta minophen 5-325 MG Oral TabletIndications :S/P wisdom tooth extraction,Pain in gums Take 1 Tablet by mouth every 8 hours as needed for Pain, Moderate (tooth pain sp extraction 05/28/24). 21 Tablet 024 2024 Discontinued(M edication List Clean Up) Mirtazapine 7.5 MG Oral Tablet (Remeron)Indicati ons:Adjustment disorder with depressed mood,Caregiver stress,Adjustment disorder with mixed anxiety and depressed mood,Loss of appetite for more than 2 weeks Take 1 Tablet by mouth at bedtime. 30 Tablet 024 2024 Discontinued(R efill) LORazepam 0.5 MG Oral Tablet (Ativan)Indicatio ns:SIXTO (generalized anxiety disorder),Symptom atic carotid artery narrowing without infarction, right,S/P carotid endarterectomy TAKE 1/2 TAB BY MOUTH IN THE MORNING AND EVENING FOR ANXIETY 30 Tablet 025 2024 Discontinued Hospital, Clinic, or Other Facility Administered [...] (Moderna) 01/23/2021,12/28/2020 Pneumococcal Conjugate Vacci ne, 20-valent ([id number]) 09/02/2022 Pneumococcal Polysaccharide PPV23 (Pneumovax) 09/01/2017 Seasonal Influenza, High Dos e, Trivalent, PF, IM (Fluzone HD) 09/01/2017 Seasonal Influenza, Quadriva lent Hd (Fluzone Hd) 08/11/2023,09/02/2022,10/08/2021 documented as of this encounter Social History Tobacco Use Types Packs/Day Years Used Date Smoking Tobacco: Every Day Cigarettes 2 58 Smokeless Tobacco: Former Comments:05/19/24 1 pack zoran ly, declined pamphlet Alcohol Use Standard Drinks/Week Comments [...] of this encounter Progress Notes * Ryland Harrison, - 12/08/2024 12:45 PM EST [facility] [place] Nursing Notes: Susan Quezada TECH 12/08/24 1259 Signed Clotilde Pope is a 79 year old year old female who presents for vision loss in right eye after injection. Last Office Visit: 12/06/2024 (in office), Visit date not found (telemedicine) Patient currently states "central vision has like a ribbon across the middle" Are you diabetic? No Do you drive? yes OCT image(s) of right eye acquired and filed/scanned into chart. Base Eye Exam Visual Acuity (Snellen - Linear) Right Left Dist cc 20/40 Dist ph cc NI Correction: Glasses Tonometry (Tonopen, 12:58 PM) Right Left Pressure 25 15 Tonometry #2 (Tonopen, 12:58 PM) Right Left Pressure 22 Tonometry #3 (Tonopen, 12:58 PM) Right Left Pressure 20 Pupils Dark Light Shape React APD Right 4.5 4.5 Round none None Left 4 4 Round Minimal None Visual Andres (Counting fingers) Right Left Full Restrictions Partial inner superior temporal, inferior temporal, superior nasal, inferior nasal deficiencies Extraocular Movement Right Left Full, Ortho Full, Ortho Neuro/Psych Oriented x3: Yes Mood/Affect: Normal Dilation Both eyes: 0.5% Proparacaine @ 12:58 PM Dilation #2 Right eye: 1.0% Mydriacyl, 2.5% Phenylephrine @ 12:58 PM Dilation Comments Patient cautioned that effects of dilation may last 2-7 hours dependant upon individual reaction. It was discussed that driving while dilated is not recommended. EXTERNAL: The ocular adnexae are unremarkable. SLE: Lids/Lashes: wnl OU Conjunctiva/Sclera: quiet OU Cornea: MDF OU; clear OU Anterior Chamber: deep and quiet OU Iris: regressed NVID OD; NVI OS Lens: 2+mixed cataracts OU GONIOSCOPY: 12/06/2024 OD: 75% closed w/ NVA OS: 50% closed w/ NVA Dilated fundus exam OD: vitreous: mild-moderate [...] -discussed guarded visual prognosis -Avastin OD 12/06/24 -12/08/2024 : VA down likely due to some movement of VH but also likely progressive underlying ischemia -continue Cosopt bid OD -still plan on OS w/in 1 week; start PRP OD/OS soon -scheduled w/ Dr. Rees/vascular surgery 12/16/24 2. 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 Cataracts OU -stable 4. MDF OU -monitor F/u for Avastin OS Ryland Harrison DO CC: Pete Pope, OD CC: PCP: Kia Goetz MD documented in this encounter Nursing Notes * Susan Quezada TECH - 12/08/2024 12:51 PM EST Clotilde Pope is a 79 year old year old female who presents for vision loss in right eye after injection. Last Office Visit: 12/06/2024 (in office), Visit date not found (telemedicine) Patient currently states "central vision has like a ribbon across the middle" Are you diabetic? No Do you drive? yes OCT image(s) of right eye acquired and filed/scanned into chart. documented in this encounter Plan of Treatment Upcoming Encounters Date Type Department Care Team (Late st Contact Info) Description 01/13/2025 9:00 AM EDT Office Visit Ophthalmology, [facility] [address] [place] [address] Ryland Harrison DO [address] [place] [address] 01/20/2025 12:51 PM EDT Hospital Encounter OR [facility], OPERATING ROOM [facility], [place] [address] [place] [phone] Servando Rees MD [address] [place] [address] 01/20/2025 12:51 PM EDT - 01/20/2025 4:50 PM EDT Surgery OR [facility], OPERATING ROOM [facility] [place] [facility] [address] [facility] [place] [phone] Servando Rees MD [address] [place] [address] CAROTID ENDARTERECTOMY 01/28/2025 8:30 AM EDT Imaging Vascular Lab, [facility] 2nd Floor, [place] [address] [place] [phone] 02/09/2025 1:50 PM EDT Office Visit Vascular Surgery, [facility] [address] [place] [phone] Servando Rees MD [address] [place] [address] 02/22/2025 1:00 PM EDT Office Visit General Internal Medicine Lisa [facility] [place] [address] [facility] [place] [address] [facility] [address] [facility] [address] Scheduled Procedures Name Priority Associated Diagnoses Date/Ti me CAROTID ENDARTERECTOMY 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 01/20/2025 12:51 PM EDT CAROTID STENT WITH OPEN EXPOSURE WITH RADIOLOGIC SUPERVISION AND INTERPRETATION 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 01/20/2025 12:51 PM EDT Health Maintenance Due Date Last Done Comments DISCUSS TOBACCO CESSATION (REFER TO SMARTSET #6836) 1945 Alpha-1 Antitrypsin 1965 Hepatitis C Screening [...] as of this encounter Visit Diagnoses Diagnosis Neovascular glaucoma of both eyes, severe stage- Primary Ocular ischemic syndrome Retinal ischemia 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
--- OUTSIDE RECORDS SUMMARY | 2025-01-31 06:36 | External Medical Summary | Summary of Care ---
Author Name Unknown Organization [facility] Address [address] [place] [address] Phone [phone] Care Team Providers Care Yardage Control Clerk Name Role Phone Kia Goetz MD Primary Care Provider [phone] Reason for Visit * Reason Onset Date Comments Medication Refill 12/15/2024 Encounter Details Date Type Department Care Team (Late st Contact Info) Description 12/15/2024 Refill General Internal Medicine [facility] [address] [place] [address] Kia Goetz MD [address] [place] [address] Ocular ischemic syndrome; Symptomatic carotid artery narrowing without infarction, right; Tobacco use disorder; Coronary artery disease involving tatitlek coronary artery of tatitlek heart without angina pectoris; Hx of CABG; COPD, group A, by GOLD 2017 classification ([facility]) Allergies Active Allergy Reactions Criticality Noted Date Comments Mometasone Furoate 01/08/2022 Blisters sides of mouth Duloxetine Hcl Low 10/08/2021 Not allergic, just doesn't work Levofloxacin High 10/08/2021 Becomes deathly ill documented as of this encounter (statuses as of 12/24/2024) Medications ZyrTEC Allergy 10 MG Oral Capsule (Cetirizine HCl) Take 1 Capsule by mouth in the morning. Active Famotidine 20 MG Oral Tablet (Pepcid) Take 1 Tablet by mouth 2 times a day as needed for Heartburn. -uses 2/wk 021 Active Aspirin 325 MG Oral TabletIndications :Coronary artery disease involving tatitlek coronary artery of tatitlek heart without angina pectoris,Hx of CABG,S/P carotid [...] Tablet Sublingual (Nitrostat)Indica tions:Coronary artery disease involving tatitlek coronary artery of tatitlek heart without angina pectoris Place 1 Tablet under the tongue as needed for Pain, Chest. May repeat 3 times. If chest pain continues, call 911. 25 Tablet 023 Active Vitamin D-3 25 MCG (1000 UT) Oral CapsuleIndication s:Longitudinal ridging of nail,Vitamin D insufficiency 1 capsule daily--inc 02/10/2024 024 Active Metoprolol Succinate ER 25 MG Oral Tablet Extended Release 24 Hour (toPROL XL)Indications:Co ronary artery disease involving tatitlek coronary artery of tatitlek heart without angina pectoris TAKE 1 TABLET BY MOUTH EVERY DAY IN THE MORNING 90 Tablet 3 024 Active Butalbital-Acetam inophen 50-325 MG Oral TabletIndications :Lumbar degenerative disc disease,Chronic neck and back pain Take 1 Tablet by mouth daily as needed for Pain, Moderate or Pain, Severe (neck pain). 30 Tablet 024 Active Additional Information Patient not taking.Reported on 12/16/2024 Reyna Harrison 100-62.5-25 MCG/ACT Aerosol Powder Breath ActivatedIndicati ons:Tobacco use disorder,COPD, group A, by GOLD 2017 classification (HCC),Abnormal lung sounds INHALE 1 PUFF BY MOUTH IN THE MORNING. -FROM 08/11/2023. 60 Each 5 024 Active Atorvastatin Calcium 40 MG Oral Tablet (Lipitor)Indicati ons:Coronary artery disease involving tatitlek coronary artery of tatitlek heart without angina pectoris,Dyslipid emia, goal LDL below 70 TAKE 1 TABLET BY MOUTH EVERY DAY IN THE MORNING 90 Tablet 3 024 Active Dorzolamide HCl-Timolol Mal 2-0.5 % Ophthalmic Solution (Cosopt Ocumeter Plus) INSTILL 1 DROP INTO THE RIGHT EYE 2 TIMES PER DAY 025 Active Nicotine 14 MG/24HR Transdermal Patch 24 Hour (Nicoderm CQ)Indications:Oc ular ischemic syndrome,Symptoma tic carotid artery narrowing without infarction, right,Tobacco use disorder,Coronary artery disease involving tatitlek coronary artery of tatitlek heart without angina pectoris,Hx of CABG Place 1 Patch over 24 hours topically on the skin in the morning. On upper body/outer arm, change once a day for two weeks.. 14 Patch 025 Active Nicotine 7 MG/24HR Transdermal Patch 24 Hour (Nicoderm CQ)Indications:Sy mptomatic carotid artery narrowing without infarction, right,Tobacco use disorder,Coronary artery disease involving tatitlek coronary artery of tatitlek heart without angina pectoris,Hx of CABG Place 1 Patch over 24 hours topically on the skin in the morning. On upper body/outer arm, change once a day for two weeks.. 14 Patch 025 Active Nicotine 21 MG/24HR Transdermal Patch 24 Hour (Nicoderm CQ)Indications:Sy mptomatic carotid artery narrowing without infarction, right,Tobacco use disorder,Coronary artery disease involving tatitlek coronary artery of tatitlek heart without angina pectoris,Hx of CABG Place 1 Patch over 24 hours topically on the skin in the morning. On upper body/upper arm, change once a day for 6 weeks.. 42 Patch 025 Active Ezetimibe 10 MG Oral Tablet (Zetia)Indication s:Coronary artery disease involving tatitlek coronary artery of tatitlek heart without angina pectoris,Dyslipid emia, goal LDL below 70 TAKE 1 TABLET BY MOUTH EVERY DAY IN THE MORNING 90 Tablet 3 025 Active LORazepam 0.5 MG Oral Tablet (Ativan)Indicatio ns:SIXTO (generalized anxiety disorder),Symptom atic carotid artery narrowing without infarction, right,S/P carotid endarterectomy TAKE 1/2 TAB BY MOUTH IN THE MORNING AND EVENING FOR ANXIETY 30 Tablet 025 2024 Discontinued Ventolin HFA 108 (90 Base) MCG/ACT Inhalation Aerosol SolutionIndicatio ns:Tobacco use disorder,COPD, group A, by GOLD 2017 classification ([facility]) Inhale 2 Puffs by mouth every 4 hours as needed for Wheezing. 18 g 1 025 2024 Discontinued(F ormulary/Cost) Hospital, Clinic, or Other Facility Administered Medication Ordered Dose Route Frequency Start Date End Date Status bevaCIZumab (Avastin) inj 1.25 mgIndications:Ocular ischemic syndrome,Retinal neovascularization of right eye 1.25 mg IZ PRN 12/06/2024 12/06/2025 Active ROPivacaine (Naropin) inj 1.5 mgIndications:Ocular ischemic syndrome,Retinal neovascularization of right eye 1.5 mg IJ PRN 12/06/2024 12/06/2025 Active documented as of this encounter (statuses as of 12/24/2024) Active Problems Problem Noted Date Diagnosed Date [...] RT arm Coronary artery disease invo lving tatitlek coronary artery of tatitlek heart without angina pectoris 10/08/2021 Hx of [...] as of this encounter (statuses as of 12/24/2024) Resolved Problems Problem Noted Date Diagnosed Date Resolved Date Caregiver stress 06/22/2024 12/13/2024 Bilateral carotid artery stenosis 10/22/2021 08/11/2023 COPD, severity to be determined 10/08/2021 01/01/2023 Overview: Per COPD GOLD Classification documented as of this encounter (statuses as of 12/24/2024) Immunizations Name Administration Dates Next Due COVID-19 mRNA, LNP-s, No Pre serve, 2-Dose Series (Moderna) 01/23/2021,12/28/2020 Pneumococcal Conjugate Vacci ne, 20-valent ([id number]) 09/02/2022 Pneumococcal Polysaccharide PPV23 (Pneumovax) 09/01/2017 Seasonal [...] encounter Miscellaneous Notes * Telephone Encounter - Porsha Chase LPN - 12/15/2024 5:36 PM EST Pending Prescriptions: Disp Refills Nicotine 14 MG/24HR Transdermal Patch 24 H*14 Pat*0 Sig: Place 1 Patch over 24 hours topically on the skin in the morning. On upper body/outer arm, change once a day for two weeks.. Ventolin HFA 108 (90 Base) MCG/ACT Inhalat*18 g 1 Sig: Inhale 2 Puffs by mouth every 4 hours as needed for Wheezing. -------- * Telephone Encounter - Louann Bustamante, BOO - 12/15/2024 12:01 PM EST NOT COVERED. ALTERNATIVE REQUESTED PER PHARMACY ALBUTEROL HFA INH NOT COVERED PLEASE ADVISE Pending Prescriptions: Disp Refills Nicotine 14 MG/24HR Transdermal Patch 24 *14 Pat*0 Sig: Place 1 Patch over 24 hours topically on the skin in the morning. On upper body/outer arm, change once a day for two weeks.. Last Visit: 12/13/2024 (in office), Visit date not found (telemedicine) Next Visit: 02/22/2025 Last date the medication was ordered: 12/14/2024 Patient Active Problem List Diagnosis Coronary artery disease involving tatitlek coronary artery of tatitlek heart without angina pectoris Hx of CABG PVD (peripheral vascular disease) with claudication ([facility]) History of right-sided carotid endarterectomy Tobacco use disorder Lumbar degenerative disc disease History of lumbar laminectomy Dyslipidemia, goal LDL below 70 Seasonal allergic rhinitis due to pollen Adjustment disorder with mixed anxiety and depressed mood Prediabetes SIXTO (generalized anxiety disorder) Ocular migraine Occlusion of left subclavian artery COPD, group A, by GOLD 2017 classification ([facility]) Symptomatic stenosis of right carotid artery without infarction Carotid artery aneurysm ([facility]) Stenosis of extracranial carotid artery, right HTN, goal below 140/80 Labs: Lab Results Component Value Date/Time CREATININE [...] Care Team (Late st Contact Info) Description 12/28/2024 2:30 PM EDT Office Visit Ophthalmology, [facility] [address] [place] [address] Ryland Harrison DO [address] [place] [address] 01/20/2025 12:51 PM EDT Hospital Encounter [facility], [facility] [address] [place] [address] Servando Rees MD [address] [place] [address] 01/20/2025 12:51 PM EDT - 01/20/2025 4:50 PM EDT Surgery OR [facility], [facility] [address] [place] [address] Servando Rees MD [address] [place] [address] CAROTID ENDARTERECTOMY 01/28/2025 8:30 AM EDT [facility] [address] [place] [address] 02/09/2025 1:50 PM EDT Office Visit Vascular Surgery, [facility] [address] [facility] [place] [address] Servando Rees MD [address] [place] [address] 02/22/2025 1:00 PM EDT Office Visit General Internal Medicine [facility] [address] [place] [place] [address] Kia Goetz MD [address] [place] [address] Scheduled Procedures Name Priority Associated Diagnoses Date/Ti me CAROTID ENDARTERECTOMY 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 01/20/2025 12:51 PM EDT CAROTID STENT WITH OPEN EXPOSURE WITH RADIOLOGIC SUPERVISION AND INTERPRETATION 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 01/20/2025 12:51 PM EDT Health Maintenance Due Date Last Done Comments DISCUSS TOBACCO CESSATION (REFER TO SMARTSET #[id number]) 1945 Alpha-1 Antitrypsin 1965 Hepatitis C Screening [...] as of this encounter Visit Diagnoses Diagnosis Ocular ischemic syndrome Retinal ischemia Symptomatic carotid artery narrowing without infarction, right Tobacco use disorder Coronary artery disease involving tatitlek coronary artery of tatitlek heart without angina pectoris Hx of CABG Postsurgical aortocoronary bypass status COPD, group A, by GOLD 2017 classification (HCC) 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 Retinal ischemia 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 Retinal ischemia documented in this encounter Care Teams Yardage Control Clerk Relationship Specialty Start Date End Date Kia Goetz MD [address] [place] [address], [place] [address] PCP - General Internal Medicine 10/08/21 documented as of this encounter
--- OUTSIDE RECORDS SUMMARY | 2025-01-31 06:36 | External Medical Summary | Summary of Care ---
Author Name Unknown Organization [facility] Address [address] [place] [address] Phone [phone] Care Team Providers Care Animal Care Service Worker Name Role Phone Kia Goetz MD Primary Care Provider [phone] Reason for Visit * Reason Comments Follow Up Encounter Details Date Type Department Care Team (Late st Contact Info) Description 12/16/2024 3:00 PM EST Office Visit Vascular Surg [facility] [address] [place] [address] Servando Rees MD [address] [place], [place] [id number] Symptomatic stenosis of left carotid artery without infarction*; Symptomatic stenosis of right carotid artery without infarction; Ocular ischemic syndrome; Pre-op testing Allergies Active Allergy Reactions Criticality Noted Date Comments Mometasone Furoate 01/08/2022 Blisters sides of mouth Duloxetine Hcl Low 10/08/2021 Not allergic, just doesn't work Levofloxacin High 10/08/2021 Becomes deathly ill documented as of this encounter (statuses as of 12/16/2024) Medications ZyrTEC Allergy 10 MG Oral Capsule (Cetirizine HCl) Take 1 Capsule by mouth in the morning. Active Famotidine 20 MG Oral Tablet (Pepcid) Take 1 Tablet by mouth 2 times a day as needed for Heartburn. -uses 2/wk 10/08/20 21 Active Aspirin 325 MG Oral TabletIndications: Coronary artery disease involving [place] coronary artery of [place] heart without angina pectoris,Hx of CABG,S/P carotid endarterectomy Take 1 Tablet by mouth in the morning. 1 Tablet 01/09/20 Active Acetaminophen 500 MG Oral Tablet (Tylenol)Indicatio ns:Headache, unspecified headache type Take by mouth 2 Tablets as needed in the morning AND 2 Tablets as needed at noon AND 2 Tablets as needed in the evening (headache). 100 Tablet 01/09/20 Active Nitroglycerin 0.4 MG Sublingual Tablet Sublingual (Nitrostat)Indicat ions:Coronary artery disease involving [place] coronary artery of [place] heart without angina pectoris Place 1 Tablet [...] Hour (toPROL XL)Indications:Cor onary artery disease involving [place] coronary artery of [place] heart without angina pectoris TAKE 1 TABLET [...] Oral Tablet (Lipitor)Indicatio ns:Coronary artery disease involving [place] coronary artery of [place] heart without angina pectoris,Dyslipide bryanna, goal LDL below 70 TAKE 1 TABLET BY MOUTH EVERY DAY IN THE MORNING 90 Tablet 3 09/15/20 24 Active LORazepam 0.5 MG Oral Tablet (Ativan)Indication s:SIXTO (generalized anxiety disorder),Symptoma tic carotid artery narrowing without infarction, right,S/P carotid endarterectomy TAKE 1/2 TAB BY MOUTH IN THE MORNING AND EVENING FOR ANXIETY 30 Tablet 11/22/19 25 Active Dorzolamide HCl-Timolol Mal 2-0.5 % Ophthalmic Solution (Cosopt Ocumeter Plus) INSTILL 1 DROP INTO THE RIGHT EYE 2 TIMES PER DAY 12/01/19 25 Active Mirtazapine 7.5 MG Oral Tablet (Remeron)Indicatio ns:Adjustment disorder with mixed anxiety and depressed mood,Grief reaction Take 1 Tablet by mouth at bedtime. St 12/13/2024 30 Tablet 2 12/13/19 25 Active Additional Information Patient not taking.Reported on 12/16/2024 Ventolin HFA 108 (90 Base) MCG/ACT Inhalation Aerosol SolutionIndication s:Tobacco use disorder,COPD, group A, by GOLD 2017 classification ([facility]) Inhale 2 Puffs by mouth every 4 hours as needed for Wheezing. 18 g 1 12/13/19 25 Active Nicotine 14 MG/24HR Transdermal Patch 24 Hour (Nicoderm CQ)Indications:Ocu lar ischemic syndrome,Symptomat ic carotid artery narrowing without infarction, right,Tobacco use disorder,Coronary artery disease involving [place] coronary artery of [place] heart without angina pectoris,Hx of CABG Place 1 Patch over 24 hours topically on the skin in the morning. On upper body/outer arm, change once a day for two weeks.. 14 Patch 12/13/19 25 Active Nicotine 7 MG/24HR Transdermal Patch 24 Hour (Nicoderm CQ)Indications:Sym ptomatic carotid artery narrowing without infarction, right,Tobacco use disorder,Coronary artery disease involving [place] coronary artery of [place] heart without angina pectoris,Hx of CABG Place 1 Patch over 24 hours topically on the skin in the morning. On upper body/outer arm, change once a day for two weeks.. 14 Patch 12/13/19 25 Active Nicotine 21 MG/24HR Transdermal Patch 24 Hour (Nicoderm CQ)Indications:Sym ptomatic carotid artery narrowing without infarction, right,Tobacco use disorder,Coronary artery disease involving [place] coronary artery of [place] heart without angina pectoris,Hx of CABG Place 1 Patch over 24 hours topically on the skin in the morning. On upper body/upper arm, change once a day for 6 weeks.. 42 Patch 12/13/19 25 Active Ezetimibe 10 MG Oral Tablet (Zetia)Indications :Coronary artery disease involving [place] coronary artery of [place] heart without angina pectoris,Dyslipide bryanna, goal LDL below 70 TAKE 1 TABLET BY MOUTH EVERY DAY IN THE MORNING 90 Tablet 3 12/15/19 Active Clopidogrel Bisulfate 75 MG Oral Tablet (pLAVix) Take 1 Tablet by mouth in the morning. 90 Tablet 5 12/16/19 Active Hospital, Clinic, or Other Facility Administered Medication Ordered Dose Route Frequency Start Date End Date Status bevaCIZumab (Avastin) inj 1.25 mgIndications:Ocular ischemic syndrome,Retinal neovascularization of right eye 1.25 mg IZ PRN 12/06/2024 12/06/2025 Active ROPivacaine (Naropin) inj 1.5 mgIndications:Ocular ischemic syndrome,Retinal neovascularization of right eye 1.5 mg IJ PRN 12/06/2024 12/06/2025 Active documented as of this encounter (statuses as of 12/16/2024) Active Problems Problem Noted Date Diagnosed Date Ocular ischemic syndrome 12/16/2024 Stenosis of extracranial carotid artery, right 1 HTN, goal below 140/80 08/11/2024 Symptomatic stenosis of righ t carotid artery without infarction 05/19/2024 Carotid artery aneurysm 05/19/2024 COPD, group A, by GOLD 2017 classification 12/30 Overview: Per COPD GOLD Classification Occlusion of left subclavian artery 01/08/2022 Overview (01/08/2022): All BP to be in RT arm Coronary artery disease invo lving [place] coronary artery of [place] heart without angina pectoris 10/08/2021 Hx of [...] as of this encounter (statuses as of 12/16/2024) Resolved Problems Problem Noted Date Diagnosed Date Resolved Date Caregiver stress 06/22/2024 12/13/2024 Bilateral carotid artery stenosis 10/22/2021 08/11/2023 COPD, severity to be determined 10/08/2021 01/01/2023 Overview: Per COPD GOLD Classification documented as of this encounter (statuses as of 12/16/2024) Immunizations Name Administration Dates Next Due COVID-19 mRNA, LNP-s, No Pre serve, 2-Dose Series (Moderna) 01/23/2021,12/28/2020 Pneumococcal Conjugate Vacci ne, 20-valent ([id number]) 09/02/2022 Pneumococcal Polysaccharide PPV23 (Pneumovax) 09/01/2017 Seasonal Influenza, High Dos e, Trivalent, PF, IM (Fluzone HD) 09/01/2017 Seasonal Influenza, Quadriva lent Hd (Fluzone Hd) 08/11/2023,09/02/2022,10/08/2021 documented as of this encounter Social History Tobacco Use Types Packs/Day Years Used Date Smoking Tobacco: Every Day Cigarettes 2 58 Smokeless Tobacco: Former Tobacco Cessation:Ready to Q uit: No; Counseling Given: No Comments:12/16/24 smokes 10 cigs a day declined [...] Sign Reading Time Taken Comments Blood Pressure 114/62 12/16/2024 3:26 PM EST Pulse 88 12/16/2024 3:26 PM EST Temperature 36.3 °C (97.3 °F) 12/16/2024 3:26 PM ES T Respiratory Rate - - Oxygen Saturation - - Inhaled Oxygen Concentration - - Weight 60.3 kg (132 lb 14.4 oz) 12/16/2024 3:26 PM EST Height - - Body Mass Index 25.96 12/13/2024 11:31 AM EST documented in this encounter Progress Notes * Gregg Fonseca PA-C - 12/16/2024 2:42 PM EST Date of Service: 12/16/2024 3:41 PM Clotilde [...] S/P right carotid endarterectomy in 08/04 in [facility] where she lived her whole life. "Waxy" vision in right prompted evaluation by [facility] who diagnosed ischemic retina approximately two weeks ago. Dr Goetz then obtained CTA head and neck revealing high grade right CCA dense plaque stenosis with aneurysmal degeneration of right CEA site. 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 CORONARY DISEASE S/p CABG x 3 (OM, RCA, MORGAN) 04/2015 at [facility] in [place]. No symptoms now. CABG did have MORGAN to LAD but target and graft poor and did not work at time of initial surgery so left with OM and RCA as targets for CABG only. Her had CABG in [place] in 2021 (he has diabetes and never recovered his strength after the CABG) PAD She has pain in bilateral anterior thighs with ambulation L=R She can walk all over [facility] as long as she pushes the cart Unchanged pain in legs since seen in 11/2021 SMOKING Smoking essentially 1 ppd, trying to cut back. She tried acccupuncture and Chantix in the past Patches don't work for her. FAMILY HISTORY: Family history is noncontributory. Current Outpatient Medications Medication Sig Dispense Refill ZyrTEC Allergy 10 MG Oral Capsule (Cetirizine HCl) Take 1 Capsule by mouth in the morning. Aspirin 325 MG Oral Tablet Take 1 Tablet by mouth in the morning. 1 Tablet 0 Acetaminophen 500 MG Oral Tablet (Tylenol) Take by mouth 2 Tablets as needed in the morning AND 2 Tablets as needed at noon AND 2 Tablets as needed in the evening (headache). 100 Tablet 0 Nitroglycerin 0.4 MG Sublingual Tablet Sublingual (Nitrostat) Place 1 Tablet under the tongue as needed for Pain, Chest. May repeat 3 times. If chest pain continues, call 911. 25 Tablet 0 Vitamin D-3 25 MCG (1000 UT) Oral Capsule 1 capsule daily--inc 02/10/2024 Metoprolol Succinate ER 25 MG Oral Tablet Extended Release 24 Hour (toPROL XL) TAKE 1 TABLET BY MOUTH EVERY DAY IN THE MORNING 90 Tablet 3 Trelegy Ellipta 100-62.5-25 MCG/ACT Aerosol Powder Breath Activated INHALE 1 PUFF BY MOUTH IN THE MORNING. -FROM 08/11/2023. 60 Each 5 Atorvastatin Calcium 40 MG Oral Tablet (Lipitor) TAKE 1 TABLET BY MOUTH EVERY DAY IN THE MORNING 90Tablet 3 LORazepam 0.5 MG Oral Tablet (Ativan) TAKE 1/2 TAB BY MOUTH IN THE MORNING AND EVENING FOR ANXIETY 30 Tablet 0 Dorzolamide HCl-Timolol Mal 2-0.5 % Ophthalmic Solution (Cosopt Ocumeter Plus) INSTILL 1 DROP INTO THE RIGHT EYE 2 TIMES PER DAY Ventolin HFA 108 (90 Base) MCG/ACT Inhalation Aerosol Solution Inhale 2 Puffs by mouth every 4 hours as needed for Wheezing. 18 g 1 Nicotine 14 MG/24HR Transdermal Patch 24 Hour (Nicoderm CQ) Place 1 Patch over 24 hours topically on the skin in the morning. On upper body/outer arm, change once a day for two weeks.. 14 Patch 0 Nicotine 7 MG/24HR Transdermal Patch 24 Hour (Nicoderm CQ) Place 1 Patch over 24 hours topically onthe skin in the morning. On upper body/outer arm, change once a day for two weeks.. 14 Patch 0 Nicotine 21 MG/24HR Transdermal Patch 24 Hour (Nicoderm CQ) Place 1 Patch over 24 hours topically on the skin in the morning. On upper body/upper arm, change once a day for 6 weeks.. 42 Patch 0 Ezetimibe 10 MG Oral Tablet (Zetia) TAKE 1 TABLET BY MOUTH EVERY DAY IN THE MORNING 90 Tablet 3 Famotidine 20 MG Oral Tablet (Pepcid) Take 1 Tablet by mouth 2 times a day as needed for Heartburn.-uses 2/wk (Patient not taking: No sig reported) Butalbital-Acetaminophen 50-325 MG Oral Tablet Take 1 Tablet by mouth daily as needed for Pain, Moderate or Pain, Severe (neck pain). (Patient not taking: Reported on 12/16/2024) 30 Tablet 0 Mirtazapine 7.5 MG Oral Tablet (Remeron) Take 1 Tablet by mouth at bedtime. St 12/13/2024 (Patient not taking: Reported on 12/16/2024) 30 Tablet 2 Current Facility-Administered Medications Medication Dose Route Frequency Provider Last Rate Last Admin bevaCIZumab (Avastin) inj 1.25 mg 1.25 mg Intravitreal PRN 1.25 mg at 12/15/24 0943 ROPivacaine (Naropin) inj 1.5 mg 1.5 mg Injection PRN 1.5 mg at 12/15/24 0943 Review of patient's allergies indicates: Allergen Reactions Levaquin [Levofloxacin] Becomes deathly ill Asmanex (120 Metered Doses) [Mometasone Furoate] Blisters sides of mouth Cymbalta [Duloxetine Hcl] Not allergic, just doesn't work Patient Active Problem List Diagnosis Coronary artery disease involving [place] coronary artery of [place] heart without angina pectoris Hx of CABG PVD (peripheral vascular disease) with claudication ([facility]) History of right-sided carotid endarterectomy Tobacco use disorder Lumbar degenerative disc disease History of lumbar laminectomy Dyslipidemia, goal LDL below 70 Seasonal allergic rhinitis due to pollen Adjustment disorder with mixed anxiety and depressed mood Prediabetes SIXTO (generalized anxiety disorder) Ocular migraine Occlusion of left subclavian artery COPD, group A, by GOLD 2017 classification ([facility]) Symptomatic stenosis of right carotid artery without infarction Carotid artery aneurysm (HCC) Stenosis of extracranial carotid artery, right HTN, goal below 140/80 Ocular ischemic syndrome Past Medical History: Diagnosis Date COPD (chronic obstructive pulmonary disease) ([facility]) H/O carotid endarterectomy 2016 right H/O microdiscectomy 2014 H/O tubal ligation 1978 History of delivery 1976 History of three vessel coronary artery bypass 2014 Past Surgical History: Procedure Laterality Date INJECTION OF EYE DRUG Right 12/06/2024 # 1 Avastin OD, Dr. Harrison INJECTION OF EYE DRUG Left 12/15/2024 #[address] Harrison OTHER (INFORMATION) Act 112 signed - Dr. Harrison OTHER (INFORMATION) Bilateral AVASTIN OU CONSENT DR. HARRISON EXP. 12/06/25 [place] RPLCMT PROST AORTIC VALVE OPEN XCP HOMOGRF/STENT 2014 [place] TEAEC W/PATCH GRF CAROTID VERTB SUBCLAV NECK INC 2016 Family History Problem Relation Name Age of Onset Colon cancer Mother With mets to brain, age 97 Hypertension Mother Macular degeneration Mother Heart attack Father Fatal [place] age 39 Asthma Sister Breast Cancer Sister Social History Socioeconomic History Marital status: Spouse name: Not on file Number of children: Not on file Years of education: Not on file Highest education level: Not on file Occupational History Not on file Tobacco Use Smoking status: Every Day Current packs/day: 2.00 Average packs/day: 2.0 packs/day for 58.0 years (116.0 ttl pk-yrs) Types: Cigarettes Smokeless tobacco: Former Tobacco comments: 12/16/24 smokes 10 cigs a day declined pamphlet Vaping Use Vaping status: Never Used Substance and Sexual Activity Alcohol use: Never Drug use: Never Sexual activity: Not Currently Other Topics Concern Not on file Social History Narrative No pets. No mold. Social Needs Financial Resource Strain: Not on file Food Insecurity: Not on file Transportation Needs: Not on file Social Connections: Not on file Housing Stability: Not on file COMPLETE REVIEW OF SYSTEMS: Cardiovascular: Negative for chest pain, shortness of breath, palpitations, angina or [place] Neurological: Negative for stroke, TIA, amaurosis fugax [...] carotid duplex 1 wk prior, all at [facility] The patient was seen and examined with Servando Rees MD. Gregg Fonseca [facility] Section of Vascular [place] [address] [phone] I have reviewed the advanced practitioner's documentation [...] with me. Her son has PHD at [facility] in [place], [place]. The patient was counseled at length regarding the nature of carotid disease, the potential risks for stroke, and treatment options of medical therapy versus carotid endarterectomy and carotid stent. A formal shared decision-making process was performed [...] of such modification for long-term health. [facility] Vascular Surgery Carotid Endarterectomy Procedures Booklet was given to the patient given I am doing both CEA and stent. Servando Rees MD Section of Vascular [place] [address] [phone] documented in this encounter Plan of Treatment Upcoming Encounters Date Type Department Care Team (Late st Contact Info) Description 01/03/2025 1:00 PM EDT Imaging Vascular Lab, [facility] 2nd Floor, [place] [address] [facility] [place] [address] 01/12/2025 11:10 AM EDT Office Visit Vascular Surgery, [facility] [address] [place] [address] Servando Rees MD [address] [place], [place] [id number] 01/12/2025 2:30 PM EDT Office Visit Ophthalmology, [facility] [address] [facility] [place] [address] Ryland Harrison DO [address] [place] [address] 01/20/2025 Hospital Encounter OR [facility], OPERATING ROOM [facility] [address] [place] [id number] Servando Rees MD [address] [place] [address] 02/22/2025 1:00 PM EDT Office Visit General Internal Medicine [facility] [address] [place] [address] [place] [address] Kia Goetz MD [address] [facility] [place] [address] Scheduled Orders Name Type Priority Associated Diagnoses Order Schedule CBC WITH WBC DIFFERENTIAL Lab Routine 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 Pre-op testing 1 Occurrences starting 12/16/2024 until 12/16/2025 BASIC METABOLIC PANEL Lab Routine 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 Pre-op testing 1 Occurrences starting 12/16/2024 until 12/16/2025 VASC DUPLEX CAROTID BILAT Medical Imaging Routine 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 Pre-op testing Ordered: 12/16/2024 Scheduled Procedures Name Priority Associated Diagnoses Date/Ti me CAROTID ENDARTERECTOMY 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 CAROTID STENT WITH OPEN EXPO SURE WITH RADIOLOGIC SUPERVISION AND INTERPRETATION 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 Health Maintenance Due Date Last Done Comments DISCUSS TOBACCO CESSATION (REFER TO SMARTSET #[id number]) 1945 Alpha-1 Antitrypsin 1965 Hepatitis C Screening [...] encounter Visit Diagnoses Diagnosis Symptomatic stenosis of left carotid artery without infarction- Primary 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 Retinal ischemia Pre-op testing Preoperative examination, unspecified 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 Retinal ischemia documented in this encounter Care Teams Animal Care Service Worker Relationship Specialty Start Date End Date Kia Goetz MD [address] [facility] [place] [address] PCP - General Internal Medicine 10/08/21 documented as of this encounter
--- OUTSIDE RECORDS SUMMARY | 2025-01-31 06:36 | External Medical Summary | Summary of Care ---
Author Name Unknown Organization [facility] Address [address] [facility] [place] [address] Phone [phone] Care Team Providers Care Exhibit Artist Name Role Phone Kia Goetz MD Primary Care Provider [phone] Reason for Visit * Reason Comments eRx-Medication Refill Encounter Details Date Type Department Care Team (Late st Contact Info) Description 12/13/2024 Refill General Internal Medicine [facility] [address] [facility] [place] [address] Kia Goetz MD 200 [place] [address] Coronary artery disease involving minto coronary artery of minto heart without angina pectoris; Dyslipidemia, goal LDL below 70 Allergies Active Allergy Reactions Criticality Noted Date Comments Mometasone Furoate 01/08/2022 Blisters sides of mouth Duloxetine Hcl Low 10/08/2021 Not allergic, just doesn't work Levofloxacin High 10/08/2021 Becomes deathly ill documented as of this encounter (statuses as of 12/15/2024) Medications ZyrTEC Allergy 10 MG Oral Capsule (Cetirizine HCl) Take 1 Capsule by mouth in the morning. Active Famotidine 20 MG Oral Tablet (Pepcid) Take 1 Tablet by mouth 2 times a day as needed for Heartburn. -uses 2/wk 021 Active Aspirin 325 MG Oral TabletIndications :Coronary artery disease involving minto coronary artery of minto heart without angina pectoris,Hx of CABG,S/P carotid [...] Tablet Sublingual (Nitrostat)Indica tions:Coronary artery disease involving minto coronary artery of minto heart without angina pectoris Place 1 Tablet under the tongue as needed for Pain, Chest. May repeat 3 times. If chest pain continues, call 911. 25 Tablet 023 Active Vitamin D-3 25 MCG (1000 UT) Oral CapsuleIndication s:Longitudinal ridging of nail,Vitamin D insufficiency 1 capsule daily--inc 02/10/2024 024 Active Additional Information Patient not taking.Reported on 12/13/2024 Metoprolol Succinate ER 25 MG Oral Tablet Extended Release 24 Hour (toPROL XL)Indications:Co ronary artery disease involving minto coronary artery of minto heart without angina pectoris TAKE 1 TABLET BY MOUTH EVERY DAY IN THE MORNING 90 Tablet 3 024 Active Butalbital-Acetam inophen 50-325 MG Oral TabletIndications :Lumbar degenerative disc disease,Chronic neck and back pain Take 1 Tablet by mouth daily as needed for Pain, Moderate or Pain, Severe (neck pain). 30 Tablet 024 Active Additional Information Patient not taking.Reported on 12/13/2024 Trelegy Ellipta 100-62.5-25 MCG/ACT Aerosol Powder Breath ActivatedIndicati ons:Tobacco use disorder,COPD, group A, by GOLD 2017 classification (HCC),Abnormal lung sounds INHALE 1 PUFF BY MOUTH IN THE MORNING. -FROM 08/11/2023. 60 Each 5 024 Active Additional Information Patient not taking.Reported on 12/13/2024 Atorvastatin Calcium 40 MG Oral Tablet (Lipitor)Indicati ons:Coronary artery disease involving minto coronary artery of minto heart without angina pectoris,Dyslipid emia, goal LDL below 70 TAKE 1 TABLET BY MOUTH EVERY DAY IN THE MORNING 90 Tablet 3 024 Active LORazepam 0.5 MG Oral Tablet (Ativan)Indicatio ns:SIXTO (generalized anxiety disorder),Symptom atic carotid artery narrowing without infarction, right,S/P carotid endarterectomy TAKE 1/2 TAB BY MOUTH IN THE MORNING AND EVENING FOR ANXIETY 30 Tablet 025 Active Dorzolamide HCl-Timolol Mal 2-0.5 % Ophthalmic Solution (Cosopt Ocumeter Plus) INSTILL 1 DROP INTO THE RIGHT EYE 2 TIMES PER DAY 025 Active Mirtazapine 7.5 MG Oral Tablet (Remeron)Indicati ons:Adjustment disorder with mixed anxiety and depressed mood,Grief reaction Take 1 Tablet by mouth at bedtime. St 12/13/2024 30 Tablet 2 025 Active Ventolin HFA 108 (90 Base) MCG/ACT Inhalation Aerosol SolutionIndicatio ns:Tobacco use disorder,COPD, group A, by GOLD 2017 classification ([facility]) Inhale 2 Puffs by mouth every 4 hours as needed for Wheezing. 18 g 1 025 Active Nicotine 14 MG/24HR Transdermal Patch 24 Hour (Nicoderm CQ)Indications:Oc ular ischemic syndrome,Symptoma tic carotid artery narrowing without infarction, right,Tobacco use disorder,Coronary artery disease involving minto coronary artery of minto heart without angina pectoris,Hx of CABG Place 1 Patch over 24 hours topically on the skin in the morning. On upper body/outer arm, change once a day for two weeks.. 14 Patch 025 Active Nicotine 7 MG/24HR Transdermal Patch 24 Hour (Nicoderm CQ)Indications:Sy mptomatic carotid artery narrowing without infarction, right,Tobacco use disorder,Coronary artery disease involving minto coronary artery of minto heart without angina pectoris,Hx of CABG Place 1 Patch over 24 hours topically on the skin in the morning. On upper body/outer arm, change once a day for two weeks.. 14 Patch 025 Active Nicotine 21 MG/24HR Transdermal Patch 24 Hour (Nicoderm CQ)Indications:Sy mptomatic carotid artery narrowing without infarction, right,Tobacco use disorder,Coronary artery disease involving minto coronary artery of minto heart without angina pectoris,Hx of CABG Place 1 Patch over 24 hours topically on the skin in the morning. On upper body/upper arm, change once a day for 6 weeks.. 42 Patch 025 Active Ezetimibe 10 MG Oral Tablet (Zetia)Indication s:Coronary artery disease involving minto coronary artery of minto heart without angina pectoris,Dyslipid emia, goal LDL below 70 TAKE 1 TABLET BY MOUTH EVERY DAY IN THE MORNING 90 Tablet 3 025 Active Ezetimibe 10 MG Oral Tablet (Zetia)Indication s:Coronary artery disease involving minto coronary artery of minto heart without angina pectoris,Dyslipid emia, goal LDL below 70 TAKE 1 TABLET BY MOUTH EVERY DAY IN THE MORNING 90 Tablet 3 024 2024 Discontinued Hospital, Clinic, or Other Facility Administered Medication Ordered Dose Route Frequency Start Date End Date Status bevaCIZumab (Avastin) inj 1.25 mgIndications:Ocular ischemic syndrome,Retinal neovascularization of right eye 1.25 mg IZ PRN 12/06/2024 12/06/2025 Active ROPivacaine (Naropin) inj 1.5 mgIndications:Ocular ischemic syndrome,Retinal neovascularization of right eye 1.5 mg IJ PRN 12/06/2024 12/06/2025 Active documented as of this encounter (statuses as of 12/15/2024) Active Problems Problem Noted Date Diagnosed Date Stenosis of extracranial carotid artery, right 1 HTN, goal below 140/80 08/11/2024 Symptomatic stenosis of righ t carotid artery without infarction 05/19/2024 Carotid artery aneurysm 05/19/2024 COPD, group A, by GOLD 2017 classification 12/30 Overview: Per COPD GOLD Classification Occlusion of left subclavian artery 01/08/2022 Overview (01/08/2022): All BP to be in RT arm Coronary artery disease invo lving minto coronary artery of minto heart without angina pectoris 10/08/2021 Hx of [...] as of this encounter (statuses as of 12/15/2024) Resolved Problems Problem Noted Date Diagnosed Date Resolved Date Caregiver stress 06/22/2024 12/13/2024 Bilateral carotid artery stenosis 10/22/2021 08/11/2023 COPD, severity to be determined 10/08/2021 01/01/2023 Overview: Per COPD GOLD Classification documented as of this encounter (statuses as of 12/15/2024) Immunizations Name Administration Dates Next Due COVID-19 mRNA, LNP-s, No Pre serve, 2-Dose Series (Moderna) 01/23/2021,12/28/2020 Pneumococcal Conjugate Vacci ne, 20-valent ([id number]) 09/02/2022 Pneumococcal Polysaccharide PPV23 (Pneumovax) 09/01/2017 Seasonal [...] encounter Miscellaneous Notes * Telephone Encounter - Darien Mac, [facility] - 12/15/2024 10:19 AM EST Signed Prescriptions: Disp Refills Ezetimibe 10 MG Oral Tablet (Zetia) 90 Tab*3 Sig: TAKE 1 TABLET BY MOUTH EVERY DAY IN THE MORNINGAuthorizing Provider: Marilou GOETZ User: DARIEN MAC documented in this encounter Plan of Treatment Upcoming Encounters Date Type Department Care Team (Late st Contact Info) Description 12/16/2024 2:00 PM EST Appointment Vascular Lab [place] [address] [place] [address] 12/16/2024 3:00 PM EST Office Visit Vascular Surg [facility] [address] [place] [address] Servando Rees MD [address] [place] [address] 01/03/2025 1:00 PM EDT Imaging Vascular Lab, [facility] 2nd Floor, [place] [address] [facility] [place] [address] 01/12/2025 11:10 AM EDT Office Visit Vascular Surgery, [facility] [address] [facility] [place] [address] Servando Rees MD [address] [place] [address] 01/12/2025 2:30 PM EDT Office Visit Ophthalmology, [facility] [address] [facility] [place] [address] Ryland Harrison, 132 [facility] [place] [address] 02/22/2025 1:00 PM EDT Office Visit General Internal Medicine [place] Alic[facility] Hsieh [address] [place] [address] Kia Goetz MD [address] [facility] [place] [address] Health Maintenance Due Date Last Done Comments DISCUSS TOBACCO CESSATION (REFER TO SMARTSET #1380) 1945 Alpha-1 Antitrypsin 1965 Hepatitis C Screening [...] as of this encounter Visit Diagnoses Diagnosis Coronary artery disease involving minto coronary artery of minto heart without angina pectoris Dyslipidemia, goal LDL below 70 Other and unspecified hyperlipidemia documented in this encounter Care Teams Exhibit Artist Relationship Specialty Start Date End Date Kia Goetz MD 200 [facility] [place] [address] PCP - General Internal Medicine 10/08/21 documented as of this encounter
--- OUTSIDE RECORDS SUMMARY | 2025-01-31 06:36 | External Medical Summary | Summary of Care ---
Author Name Unknown Organization [facility] Address [address] [facility] [place] [address] Phone [phone] Care Team Providers Care Curb And Gutter Laborer Name Role Phone Kia Goetz MD Primary Care Provider [phone] Reason for Visit * Reason Onset Date Comments Appointment 12/17/2024 Encounter Details Date Type Department Care Team (Late st Contact Info) Description 12/17/2024 Telephone Ophthalmology, [facility] [address] [place] [address] Ryland Harrison DO [address] [place] [address] Appointment Allergies Active Allergy Reactions Criticality Noted Date Comments Mometasone Furoate 01/08/2022 Blisters sides of mouth Duloxetine Hcl Low 10/08/2021 Not allergic, just doesn't work Levofloxacin High 10/08/2021 Becomes deathly ill documented as of this encounter (statuses as of 12/20/2024) Medications ZyrTEC Allergy 10 MG Oral Capsule (Cetirizine HCl) Take 1 Capsule by mouth in the morning. Active Famotidine 20 MG Oral Tablet (Pepcid) Take 1 Tablet by mouth 2 times a day as needed for Heartburn. -uses 2/wk 10/08/20 21 Active Aspirin 325 MG Oral TabletIndications: Coronary artery disease involving [place] coronary artery of [place] heart without angina pectoris,Hx of CABG,S/P carotid [...] Tablet Sublingual (Nitrostat)Indicat ions:Coronary artery disease involving [place] coronary artery of [place] heart without angina pectoris Place 1 Tablet under the tongue as needed for Pain, Chest. May repeat 3 times. If chest pain continues, call 911. 25 Tablet 08/11/20 Active Vitamin D-3 25 MCG (1000 UT) Oral CapsuleIndications :Longitudinal ridging of nail,Vitamin D insufficiency 1 capsule daily--inc 02/10/2024 02/10/20 24 Active Metoprolol Succinate ER 25 MG Oral Tablet Extended Release 24 Hour (toPROL XL)Indications:Cor onary artery disease involving [place] coronary artery of [place] heart without angina pectoris TAKE 1 TABLET [...] Oral Tablet (Lipitor)Indicatio ns:Coronary artery disease involving [place] coronary artery of [place] heart without angina pectoris,Dyslipide bryanna, goal LDL [...] 2 TIMES PER DAY 12/01/19 25 Active Ventolin HFA 108 (90 Base) MCG/ACT Inhalation Aerosol SolutionIndication s:Tobacco use disorder,COPD, group A, by GOLD 2017 classification ([facility]) Inhale 2 Puffs by mouth every 4 hours as needed for Wheezing. 18 g 1 12/13/19 25 Active Nicotine 14 MG/24HR Transdermal Patch 24 Hour (Nicoderm CQ)Indications:Ocu lar ischemic syndrome,Symptomat ic carotid artery narrowing without infarction, right,Tobacco use disorder,Coronary artery disease involving [place] coronary artery of [place] heart without angina pectoris,Hx of CABG Place 1 Patch over 24 hours topically on the skin in the morning. On upper body/outer arm, change once a day for two weeks.. 14 Patch 12/13/19 25 Active Nicotine 7 MG/24HR Transdermal Patch 24 Hour (Nicoderm CQ)Indications:Sym ptomatic carotid artery narrowing without infarction, right,Tobacco use disorder,Coronary artery disease involving [place] coronary artery of [place] heart without angina pectoris,Hx of CABG Place 1 Patch over 24 hours topically on the skin in the morning. On upper body/outer arm, change once a day for two weeks.. 14 Patch 12/13/19 25 Active Nicotine 21 MG/24HR Transdermal Patch 24 Hour (Nicoderm CQ)Indications:Sym ptomatic carotid artery narrowing without infarction, right,Tobacco use disorder,Coronary artery disease involving [place] coronary artery of [place] heart without angina pectoris,Hx of CABG Place 1 Patch over 24 hours topically on the skin in the morning. On upper body/upper arm, change once a day for 6 weeks.. 42 Patch 12/13/19 25 Active Ezetimibe 10 MG Oral Tablet (Zetia)Indications :Coronary artery disease involving [place] coronary artery of [place] heart without angina pectoris,Dyslipide bryanna, goal LDL below 70 TAKE 1 TABLET BY MOUTH EVERY DAY IN THE MORNING 90 Tablet 3 12/15/19 25 Active Clopidogrel Bisulfate 75 MG Oral Tablet (pLAVix) Take 1 Tablet by mouth in the morning. 90 Tablet 5 12/16/19 25 Active Hospital, Clinic, or Other Facility Administered Medication Ordered Dose Route Frequency Start Date End Date Status bevaCIZumab (Avastin) inj 1.25 mgIndications:Ocular ischemic syndrome,Retinal neovascularization of right eye 1.25 mg IZ PRN 12/06/2024 12/06/2025 Active ROPivacaine (Naropin) inj 1.5 mgIndications:Ocular ischemic syndrome,Retinal neovascularization of right eye 1.5 mg IJ PRN 12/06/2024 12/06/2025 Active documented as of this encounter (statuses as of 12/20/2024) Active Problems Problem Noted Date Diagnosed Date [...] RT arm Coronary artery disease invo lving [place] coronary artery of [place] heart without angina pectoris 10/08/2021 Hx of [...] as of this encounter (statuses as of 12/20/2024) Resolved Problems Problem Noted Date Diagnosed Date Resolved Date Caregiver stress 06/22/2024 12/13/2024 Bilateral carotid artery stenosis 10/22/2021 08/11/2023 COPD, severity to be determined 10/08/2021 01/01/2023 Overview: Per COPD GOLD Classification documented as of this encounter (statuses as of 12/20/2024) Immunizations Name Administration Dates Next Due COVID-19 mRNA, LNP-s, No Pre serve, 2-Dose Series (Moderna) 01/23/2021,12/28/2020 Pneumococcal Conjugate Vacci ne, 20-valent ([id number]) 09/02/2022 Pneumococcal Polysaccharide PPV23 (Pneumovax) 09/01/2017 Seasonal [...] Miscellaneous Notes * Telephone Encounter - Porsha Gray LPN - 12/20/2024 11:57 AM EST Patient aware of appointment * Telephone Encounter - Porsha Gray LPN - 12/17/2024 10:46 AM EST LMTRC for patient to put her in earlier spot for laser treatment per Dr. Cessna. Patient scheduled for 12/21/24 at 12:45. documented in this encounter Plan of Treatment Upcoming Encounters Date Type Department Care Team (Late st Contact Info) Description 12/21/2024 12:45 PM EST Office Visit Ophthalmology, [facility] [place] [address] Ryland Harrison DO [address] [place] [address] 01/03/2025 1:00 PM EDT Imaging Vascular Lab, [place] [address] [place] [address] 01/12/2025 11:10 AM EDT Office Visit Vascular Surgery, [facility] 132 [facility] [place] [address] Servando Rees MD [address] [place] [facility] [place] [address] 01/20/2025 12:51 PM EDT Hospital Encounter [place] [facility], OPERATING ROOM [facility], [facility] [address] [facility] [place] [phone] Servando Rees MD [address] [place] [facility] [address] 01/20/2025 12:51 PM EDT - 01/20/2025 4:50 PM EDT Surgery OR [facility], OPERATING ROOM [facility], [facility] [address] [facility] [place] [address] Servando Rees MD [address] [place] [address] CAROTID ENDARTERECTOMY 01/28/2025 8:30 AM EDT Imaging Vascular Lab, [address] [facility] [place] [address] 02/09/2025 1:50 PM EDT Office Visit Vascular Surgery, [facility] [address] [place] [address] Servando Rees MD [address] [place] [address] 02/22/2025 1:00 PM EDT Office Visit General Internal Medicine [facility] [address] [facility] [place] [address] Kia Goetz MD 200 [facility] [place] [address] Scheduled Procedures Name Priority Associated Diagnoses Date/Ti [...] filedocumented as of this encounter Care Teams Curb And Gutter Laborer Relationship Specialty Start Date End Date Kia Goetz MD 200 [facility] [place] [address] PCP - General Internal Medicine 10/08/21 documented as of this encounter
--- OUTSIDE RECORDS SUMMARY | 2025-01-31 06:36 | External Medical Summary | Summary of Care ---
Author Name Unknown Organization [facility] Address [address] [facility] [place] [address] Phone [phone] Care Team Providers Care Airborne Operations Name Role Phone Kia Goetz MD Primary Care Provider [phone] Reason for Visit * Reason Comments Follow Up Encounter Details Date Type Department Care Team (Late st Contact Info) Description 12/21/2024 12:45 PM EST Office Visit Ophthalmology, [facility] [address] [facility] [place] [address] Ryland Harrison, [address] [place] [address] Ocular ischemic syndrome*; Retinal neovascularization of right eye; Neovascular glaucoma of both eyes, severe stage Allergies Active Allergy Reactions Criticality Noted Date Comments Mometasone Furoate 01/08/2022 Blisters sides of mouth Duloxetine Hcl Low 10/08/2021 Not allergic, just doesn't work Levofloxacin High 10/08/2021 Becomes deathly ill documented as of this encounter (statuses as of 12/21/2024) Medications ZyrTEC Allergy 10 MG Oral Capsule (Cetirizine HCl) Take 1 Capsule by mouth in the morning. Active Famotidine 20 MG Oral Tablet (Pepcid) Take 1 Tablet by mouth 2 times a day as needed for Heartburn. -uses 2/wk Active Aspirin 325 MG Oral TabletIndications :Coronary [...] EYE 2 TIMES PER DAY 025 Active Ventolin HFA 108 (90 Base) MCG/ACT Inhalation Aerosol SolutionIndicatio ns:Tobacco use disorder,COPD, group A, by GOLD 2017 classification ([facility]) Inhale 2 Puffs by mouth [...] the morning. 90 Tablet 5 025 Active Sertraline HCl 50 MG Oral Tablet (Zoloft)Indicatio ns:Adjustment disorder with mixed anxiety and depressed mood,Grief reaction,Neovascu lar glaucoma of both eyes, severe stage Half tablet daily for 8 days then 1 tablet daily with breakfast -st 12/19/2024 30 Tablet 2 025 Active LORazepam 0.5 MG Oral Tablet [...] as of this encounter (statuses as of 12/21/2024) Active Problems Problem Noted Date Diagnosed Date [...] as of this encounter (statuses as of 12/21/2024) Resolved Problems Problem Noted Date Diagnosed Date Resolved Date Caregiver stress 06/22/2024 12/13/2024 Bilateral carotid artery stenosis 10/22/2021 08/11/2023 COPD, severity to be determined 10/08/2021 01/01/2023 Overview: Per COPD GOLD Classification documented as of this encounter (statuses as of 12/21/2024) Immunizations Name Administration Dates Next Due COVID-19 mRNA, LNP-s, No Pre serve, 2-Dose Series (Moderna) 01/23/2021,12/28/2020 Pneumococcal Conjugate Vacci ne, 20-valent ([id number]) 09/02/2022 Pneumococcal Polysaccharide PPV23 (Pneumovax) 09/01/2017 Seasonal [...] Progress Notes * Ryland Harrison DO - 12/21/2024 12:45 PM EST TIMEOUT PROCEDURE: correct patient identity-YES correct procedure and consent-YES verified side and site-YES correct patient position-YES all necessary equipment/prior studies present-YES reviewed special requirements of this patient-YES PROCEDURE: [place]-retinal photocoagulation, OD. DIAGNOSIS: NVG/OIS COMPLICATIONS: None. ANESTHESIA: Topical. INDICATIONS FOR PROCEDURE: Decrease risk of vision loss. CONSENT: Risk and benefits and alternatives were discussed with the patient including but not limited to decreased visual acuity, inflammation, corneal abrasion, pain, glaucoma, night blindness, hemorrhage, cataract, and the need for more procedures. Patient is aware of these risks and consents to the procedure. DESCRIPTION OF PROCEDURE: Informed written consent was obtained and the laser site was confirmed. The patient was brought to the laser room and seated in the exam chair. Topical proparacaine was administered and panretinal photocoagulation was performed in the standard fashion. Moderately intense bedoya were achieved, using the following settings: wavelength: yellow duration: 150 ms power: 200 milliwatts total # of spots: 834 The patient tolerated the procedure well and left in stable condition with follow-up instructions. Ryland Harrison DO Follow up: Return for 1-2wks, 30 minutes end of day LASER, OS. documented in this encounter Nursing Notes * Susan Quezada TECH - 12/21/2024 12:45 PM EST Clotilde Pope is a 79 year old year old female who presents for Ocular ischemic syndrome OU . Last Office Visit: 12/15/2024 (in office), Visit date not found (telemedicine) Patient currently states left eye is sometimes blotchy. Scheduled for surgery 01/20 at [place] Are you diabetic? no Do you drive? yes No images at [facility] visit documented in this encounter Plan of Treatment Upcoming Encounters Date Type Department Care Team (Late st Contact Info) Description 12/28/2024 2:30 PM EDT Office Visit Ophthalmology, [facility] [address] [place] [address] Ryland Harrison DO [address] [place] [address] 01/20/2025 12:51 PM EDT Hospital Encounter OR [facility] [place] [place], OPERATING ROOM [facility] [place] [place] [address] [facility] [place] [phone] Servando Rees MD [address] [facility] [place] [address] 01/20/2025 12:51 PM EDT - 01/20/2025 4:50 PM EDT Surgery OR [facility] [place] [place], OPERATING ROOM [facility] [place] [place] [address] [facility] [place] [address] Servando Rees MD [address] [facility] [place] [address] CAROTID ENDARTERECTOMY 01/28/2025 8:30 AM EDT [facility] [address] [place] [address] 02/09/2025 1:50 PM EDT Office Visit Vascular Surgery, [facility] [address] [place] [address] Servando Rees MD [address] [facility] [place] [address] 02/22/2025 1:00 PM EDT Office Visit General Internal Medicine [place] [address] [facility] [place], [place] [address] Kia Goetz MD [address] [facility] [place] [address] Scheduled Procedures Name Priority Associated Diagnoses Date/Ti me CAROTID ENDARTERECTOMY 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 01/20/2025 12:51 PM EDT CAROTID STENT WITH OPEN EXPOSURE WITH RADIOLOGIC SUPERVISION AND INTERPRETATION 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 01/20/2025 12:51 PM EDT Health Maintenance Due Date Last Done Comments DISCUSS TOBACCO CESSATION (REFER TO SMARTSET #[id number]) 1945 Alpha-1 Antitrypsin 1965 Hepatitis C Screening [...] ischemia Ocular ischemic syndrome- Primary 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
--- OUTSIDE RECORDS SUMMARY | 2025-01-31 06:36 | External Medical Summary | Summary of Care ---
Author Name Unknown Organization [facility] Address [address] [facility] [place] [address] Phone [phone] Care Team Providers Care Furnace Maintenance Name Role Phone Kia Goetz MD Primary Care Provider [phone] Reason for Visit * Reason Comments Follow Up Encounter Details Date Type Department Care Team (Late st Contact Info) Description 12/28/2024 2:30 PM EDT Office Visit Ophthalmology, [facility] [address] [facility] [place] [address] Ryland Harrison, [address] [place] [address] Neovascular glaucoma of both eyes, severe stage*; Ocular ischemic syndrome; Rubeosis iridis of both eyes Allergies Active Allergy Reactions Criticality Noted Date Comments Mometasone Furoate 01/08/2022 Blisters sides of mouth Duloxetine Hcl Low 10/08/2021 Not allergic, just doesn't work Levofloxacin High 10/08/2021 Becomes deathly ill documented as of this encounter (statuses as of 12/29/2024) Medications ZyrTEC Allergy 10 MG Oral Capsule (Cetirizine HCl) Take 1 Capsule by mouth in the morning. Active Famotidine 20 MG Oral Tablet (Pepcid) Take 1 Tablet by mouth 2 times a day as needed for Heartburn. -uses 2/wk 10/08/20 21 Active Aspirin 325 MG Oral TabletIndications: Coronary artery disease involving [place] coronary artery of [place] heart without angina pectoris,Hx of CABG,S/P carotid [...] Tablet Sublingual (Nitrostat)Indicat ions:Coronary artery disease involving [place] coronary artery of [place] heart without angina pectoris Place 1 Tablet [...] Hour (toPROL XL)Indications:Cor onary artery disease involving [place] coronary artery of [place] heart without angina pectoris TAKE 1 TABLET [...] Oral Tablet (Lipitor)Indicatio ns:Coronary artery disease involving [place] coronary artery of [place] heart without angina pectoris,Dyslipide bryanna, goal LDL [...] infarction, right,Tobacco use disorder,Coronary artery disease involving [place] coronary artery of [place] heart without angina pectoris,Hx of CABG Place 1 Patch over 24 hours topically on the skin in the morning. On upper body/outer arm, change once a day for two weeks.. 14 Patch 12/13/19 25 Active Nicotine 7 MG/24HR Transdermal Patch 24 Hour (Nicoderm CQ)Indications:Sym ptomatic carotid artery narrowing without infarction, right,Tobacco use disorder,Coronary artery disease involving [place] coronary artery of [place] heart without angina pectoris,Hx of CABG Place 1 Patch over 24 hours topically on the skin in the morning. On upper body/outer arm, change once a day for two weeks.. 14 Patch 12/13/19 25 Active Nicotine 21 MG/24HR Transdermal Patch 24 Hour (Nicoderm CQ)Indications:Sym ptomatic carotid artery narrowing without infarction, right,Tobacco use disorder,Coronary artery disease involving [place] coronary artery of [place] heart without angina pectoris,Hx of CABG Place 1 Patch over 24 hours topically on the skin in the morning. On upper body/upper arm, change once a day for 6 weeks.. 42 Patch 12/13/19 25 Active Ezetimibe 10 MG Oral Tablet (Zetia)Indications :Coronary artery disease involving [place] coronary artery of [place] heart without angina pectoris,Dyslipide brynana, goal LDL below 70 TAKE 1 TABLET [...] stage,COPD, group A, by GOLD 2017 classification ([facility]),Tobacco use disorder Inhale 2 Puffs [...] as of this encounter (statuses as of 12/29/2024) Active Problems Problem Noted Date Diagnosed Date [...] RT arm Coronary artery disease invo lving [place] coronary artery of [place] heart without angina pectoris 10/08/2021 Hx of [...] as of this encounter (statuses as of 12/29/2024) Resolved Problems Problem Noted Date Diagnosed Date Resolved Date Caregiver stress 06/22/2024 12/13/2024 Bilateral carotid artery stenosis 10/22/2021 08/11/2023 COPD, severity to be determined 10/08/2021 01/01/2023 Overview: Per COPD GOLD Classification documented as of this encounter (statuses as of 12/29/2024) Immunizations Name Administration Dates Next Due COVID-19 mRNA, LNP-s, No Pre serve, 2-Dose Series (Moderna) 01/23/2021,12/28/2020 Pneumococcal Conjugate Vacci ne, 20-valent ([id number]) 09/02/2022 Pneumococcal Polysaccharide PPV23 (Pneumovax) 09/01/2017 Seasonal [...] Progress Notes * Ryland Harrison DO - 12/28/2024 2:30 PM EDT TIMEOUT PROCEDURE: correct patient identity-YES correct procedure and consent-YES verified side and site-YES correct patient position-YES all necessary equipment/prior studies present-YES reviewed special requirements of this patient-YES PROCEDURE: [place]-retinal photocoagulation, OS. DIAGNOSIS: NVG/OIS COMPLICATIONS: None. ANESTHESIA: Topical. INDICATIONS [...] power: 200 milliwatts total # of spots: 563 The patient tolerated the procedure well and left in stable condition with follow-up instructions. Ryland Harrison DO Follow up: Return for 1-2wks, 30 minutes end of day Possible LASER, OD. documented in this encounter Plan of Treatment Upcoming Encounters Date Type Department Care Team (Late st Contact Info) Description 01/06/2025 12:45 PM EDT Office Visit Ophthalmology, [address] [place] [address] Sof[place]ienven[place]vin [place], [address] [place] [address] 01/20/2025 12:51 PM EDT Hospital Encounter [place] [facility] [place] [facility] [place] [address] [place] [phone] Servando Rees MD [address] [facility] [place] [address] 01/20/2025 12:51 PM EDT - 01/20/2025 4:50 PM EDT Surgery OR [facility] [place] [facility] [place] [address] [place] [facility] [phone] Servando Rees MD [address] [place] [address] CAROTID ENDARTERECTOMY 01/28/2025 8:30 AM EDT Imaging Vascular Lab, [facility] [address] [facility] [address] [place] [address] 02/09/2025 1:50 PM EDT Office Visit Vascular Surgery, [facility] [address] [place] [address] Servando Rees MD [address] [place] [address] 02/22/2025 1:00 PM EDT Office Visit General Internal Medicine [facility] [address] [place] [address] Kia Goetz MD [address] [facility] [place] [address] Scheduled Procedures Name Priority Associated Diagnoses Date/Ti [...] ischemic syndrome Retinal ischemia Neovascular glaucoma of both eyes, severe stage- Primary 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
--- OUTSIDE RECORDS SUMMARY | 2025-01-31 06:36 | External Medical Summary | Summary of Care ---
Author Name Unknown Organization [facility] Address [address] [facility] [place] [address] Phone [phone] Care Team Providers Care Reordering Clerk Name Role Phone Kia Goetz MD Primary Care Provider [phone] Reason for Visit * Reason Comments NEW PATIENT Encounter Details Date Type Department Care Team (Late st Contact Info) Description 12/06/2024 12:45 PM EST Office Visit Ophthalmology, [facility] [address] [facility] [place] [address] Ryland Harrison DO [address] [place] [address] Ocular ischemic syndrome*; Visual distortions of shape and size; Neovascular glaucoma of both eyes, severe stage; Rubeosis iridis of both eyes; Retinal neovascularization of right eye; Vitreous hemorrhage of right eye (HCC); Retinal edema Allergies Active Allergy Reactions Criticality Noted Date [...] MG Oral TabletIndications :Coronary artery disease involving [place] coronary artery of [place] heart without angina pectoris,Hx of CABG,S/P carotid [...] Tablet Sublingual (Nitrostat)Indica tions:Coronary artery disease involving [place] coronary artery of [place] heart without angina pectoris Place 1 Tablet [...] Hour (toPROL XL)Indications:Co ronary artery disease involving [place] coronary artery of [place] heart without angina pectoris TAKE 1 TABLET [...] Oral Tablet (Lipitor)Indicati ons:Coronary artery disease involving [place] coronary artery of [place] heart without angina pectoris,Dyslipid emia, goal LDL below 70 TAKE 1 TABLET BY MOUTH EVERY DAY IN THE MORNING 90 Tablet 3 024 Active Dorzolamide HCl-Timolol Mal 2-0.5 % Ophthalmic Solution (Cosopt Ocumeter Plus) INSTILL 1 DROP INTO THE RIGHT EYE 2 TIMES PER DAY 025 Active Ezetimibe 10 MG Oral Tablet (Zetia)Indication s:Coronary artery disease involving [place] coronary artery of [place] heart without angina pectoris,Dyslipid emia, goal LDL [...] RT arm Coronary artery disease invo lving [place] coronary artery of [place] heart without angina pectoris 10/08/2021 Hx of [...] (Moderna) 01/23/2021,12/28/2020 Pneumococcal Conjugate Vacci ne, 20-valent ([id number]) 09/02/2022 Pneumococcal Polysaccharide PPV23 (Pneumovax) 09/01/2017 Seasonal [...] Progress Notes * Ryland Harrison DO - 12/06/2024 12:45 PM EST [facility] [place] Nursing notes reviewed. Eye vitals reviewed. Mood and Affect: normal HPI: Clotilde Pope is a 79 year old female who presents for evaluation of retinas CC: 'my vision is blurry' Vision: decreased Location (of CC): OD Quality/Severity: moderate Duration: weeks Timing: gradual Context: nonspecific Associated Signs/Symptoms: none Modifying Factors: none No other eye complaints. Denies significant pain. Base Eye Exam Visual Acuity (Snellen - Linear) Right Left Dist cc 20/150 -1 20/40 Dist ph cc NI NI Correction: Glasses Tonometry (Tonopen, 12:59 PM) Right Left Pressure 19 17 Pupils Dark Light Shape React APD Right 4.5 4.5 Round none None Left 4 4 Round Minimal None Visual Andres (Counting fingers) Right Left Full Full Extraocular Movement Right Left Full, Ortho Full, Ortho Neuro/Psych Oriented x3: Yes Mood/Affect: Normal Dilation Both eyes: 0.5% Proparacaine @ 12:57 PM Dilation #2 Both eyes: 1.0% Mydriacyl, 2.5% Phenylephrine @ 12:59 PM Dilation #3 Both eyes: 1.0% Mydriacyl @ 1:01 PM Dilation Comments Patient cautioned that effects of dilation may last 2-7 hours dependant upon individual reaction. It was discussed that driving while dilated is not recommended. EXTERNAL: The ocular adnexae are unremarkable. SLE: Lids/Lashes: wnl OU Conjunctiva/Sclera: quiet OU Cornea: MDF OU; clear OU Anterior Chamber: deep and quiet OU Iris: +NVI OU Lens: 2+mixed cataracts OU GONIOSCOPY: 12/06/2024 OD: 75% closed w/ NVA OS: 50% closed w/ NVA Dilated fundus exam OD: vitreous: mild VH optic nerve: 0.25, +NVD, no edema/pallor macula: splinter and blot hemes, temporal hollenhorst plaque vessels: dilated veins periphery: mid periph hemes, no RT/RD Dilated fundus exam OS: vitreous: clear optic nerve: 0.3, no edema/pallor/NVD macula: dot hemes vessels: dilated veins periphery: mid periph dot hemes, no RT/RD OCT Interpretation: OD: thin, no irf/srf, no pvd OS: no irf/srf, no pvd A/P: 1. 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 Rees 2. 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 Cataracte OU -stable 4. MDF OU -monitor MDM Level: HIGH due to high risk of vision loss w/o intervention. Follow Up: Return for f/u for Avastin OS in 2-9 days. | For: f/u for Avastin OS in 2-9 daysf/u for Avastin OS Ryland Harrison DO CC: [...] Nursing Notes * Elsi Davison RN - 12/06/2024 1:59 PM EST Clotilde Pope to receive first Avastin 2.75 mg Injection of the Right eye. Correct eye confirmed with patient and marked by Ryland Harrison DO Avastin 2.75 mg lot # [id number] Exp. Date: 02/12/25 * Susan Quezada TECH - 12/06/2024 12:49 PM EST Clotilde Pope is a 79 year old year old female referred by Dr. Pope to evaluate retinas. Patient's name preference, 'Clotilde'. Patient currently states "I have a string hanging down from right eye. And vision is cloudy in the right eye more so than the left eye" Have you ever had any major surgery of serious injury of or around the eyes- no Are you diabetic? No FAMILY HISTORY: Family History Problem Relation Name Age of Onset Colon cancer Mother With mets to brain, age 97 Hypertension Mother Heart attack Father Fatal [place] age 39 Asthma Sister Breast Cancer Sister SOCIAL HISTORY: Social History Tobacco Use Smoking status: Every Day Current packs/day: 2.00 Average packs/day: 2.0 packs/day for 58.0 years (116.0 ttl pk-yrs) Types: Cigarettes Smokeless tobacco: Former Tobacco comments: 05/19/24 1 pack daily, declined pamphlet Vaping Use Vaping status: Never Used Substance Use Topics Alcohol use: Never Drug use: Never PMH: Past Medical History: Diagnosis Date COPD (chronic obstructive pulmonary disease) ([facility]) H/O carotid endarterectomy 2016 right H/O microdiscectomy 2014 H/O tubal ligation 1977 History of delivery 1975 History of three vessel coronary artery bypass 2014 Patient Active Problem List Diagnosis Coronary artery disease involving [place] coronary artery of [place] heart without angina pectoris Hx of CABG PVD (peripheral vascular disease) with claudication ([facility]) History of right-sided carotid endarterectomy Tobacco use disorder Lumbar degenerative disc disease History of lumbar laminectomy Dyslipidemia, goal LDL below 70 Seasonal allergic rhinitis due to pollen Adjustment disorder with mixed anxiety and depressed mood Prediabetes SIXTO (generalized anxiety disorder) Ocular migraine Occlusion of left subclavian artery COPD, group A, by GOLD 2017 classification ([facility]) Symptomatic stenosis of right carotid artery without infarction Caregiver stress Carotid artery aneurysm (HCC) Stenosis of extracranial carotid artery, right HTN, goal below 140/80 History obtained from: Patient Do you drive? yes OCT, fundus image(s) of both eyes acquired and filed/scanned into chart. documented in this encounter Plan of Treatment Upcoming Encounters Date Type Department Care Team (Late st Contact Info) Description 01/13/2025 9:00 AM EDT Office Visit Ophthalmology, [facility] [address] [place] [address] Ryland Harrison DO [address] [place] [address] 01/20/2025 12:51 PM EDT Hospital Encounter [place] [facility] [address] [place] [phone] Servando Rees MD [address] [place] [address] 01/20/2025 12:51 PM EDT - 01/20/2025 4:50 PM EDT Surgery OR [facility] [address] [place] [phone] Servando Rees MD [address] [place] [address] CAROTID ENDARTERECTOMY 01/28/2025 8:30 AM EDT Imaging Vascular Lab, [facility] 2nd Floor, [place] [address] [place] [phone] 02/09/2025 1:50 PM EDT Office Visit Vascular Surgery, [facility] [address] [place] [phone] Servando Rees MD [address] [facility] [place], [place] [id number] 02/22/2025 1:00 PM EDT Office Visit General Internal Medicine [facility] Hsieh [address] [place] [address] Kia Goetz MD [address] [facility] [place] [address] Scheduled Orders Name Type Priority Associated Diagnoses Orde r Schedule RETINA SCAN DIAGNOSTIC IMAGE, POSTERIOR Procedures Routine Visual distortions of shape and size Ordered: 12/06/2024 FUNDUS PHOTOGRAPHY Procedures Routine Visual distortions of shape and size Ordered: 12/06/2024 Scheduled Procedures Name Priority Associated Diagnoses Date/Ti me CAROTID ENDARTERECTOMY 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 01/20/2025 12:51 PM EDT CAROTID STENT WITH OPEN EXPOSURE WITH RADIOLOGIC SUPERVISION AND INTERPRETATION 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 01/20/2025 12:51 PM EDT Health Maintenance Due Date Last Done Comments DISCUSS TOBACCO CESSATION (REFER TO SMARTSET #1853) 1945 Alpha-1 Antitrypsin 1965 Hepatitis C Screening [...] this encounter Visit Diagnoses Diagnosis Ocular ischemic syndrome- Primary Retinal ischemia Visual distortions of shape and size Neovascular glaucoma of both eyes, 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
--- OUTSIDE RECORDS SUMMARY | 2025-01-31 06:36 | External Medical Summary | Summary of Care ---
Author Name Unknown Organization [facility] Address [address] [facility] [place] [address] Phone [phone] Care Team Providers Care Safety Companion Name Role Phone Kia Goetz MD Primary Care Provider [phone] Reason for Visit * Reason Comments Follow Up * Clinic-administered Medications (Within 10 days (routine)) - Authorized Specialty Diagnoses / Procedures Referred By Yuan hernandez Referred To Contact Ophthalmology Diagnoses Retinal neovascularization, unspecified, unspecified eye Procedures TN BEVACIZUMAB INJECTION TN INTRAVITREAL NJX PHARMACOLOGIC AGT SPX Ryland Harrison DO [address] [place] [address] Phone: tel: fax: Referral ID Status Reason Start Date Expiration Date V isits Requested Visits Authorized [id number] Authorized Precert 12/07/2024 10/19/2099 [id number] Encounter Details Date Type Department Care Team (Late st Contact Info) Description 12/15/2024 9:15 AM EST Office Visit Ophthalmology, [facility] [address] [place] [address] Ryland Harrison DO [address] [place] [address] Neovascular glaucoma of both eyes, severe stage*; Ocular ischemic syndrome Allergies Active Allergy Reactions Criticality Noted Date [...] MG Oral TabletIndications :Coronary artery disease involving [place] coronary artery of [place] heart without angina pectoris,Hx of CABG,S/P carotid [...] Tablet Sublingual (Nitrostat)Indica tions:Coronary artery disease involving [place] coronary artery of [place] heart without angina pectoris Place 1 Tablet [...] Hour (toPROL XL)Indications:Co ronary artery disease involving [place] coronary artery of [place] heart without angina pectoris TAKE 1 TABLET [...] A, by GOLD 2017 classification ([facility]),Abnormal lung sounds INHALE 1 PUFF BY MOUTH IN THE MORNING. -FROM 08/11/2023. 60 Each 5 024 Active Additional Information Patient not taking.Reported on 12/13/2024 Atorvastatin Calcium 40 MG Oral Tablet (Lipitor)Indicati ons:Coronary artery disease involving [place] coronary artery of [place] heart without angina pectoris,Dyslipid emia, goal LDL [...] A, by GOLD 2017 classification ([facility]) Inhale 2 Puffs by mouth every 4 hours as needed for Wheezing. 18 g 1 025 Active Nicotine 14 MG/24HR Transdermal Patch 24 Hour (Nicoderm CQ)Indications:Oc ular ischemic syndrome,Symptoma tic carotid artery narrowing without infarction, right,Tobacco use disorder,Coronary artery disease involving [place] coronary artery of [place] heart without angina pectoris,Hx of CABG Place 1 Patch over 24 hours topically on the skin in the morning. On upper body/outer arm, change once a day for two weeks.. 14 Patch 025 Active Nicotine 7 MG/24HR Transdermal Patch 24 Hour (Nicoderm CQ)Indications:Sy mptomatic carotid artery narrowing without infarction, right,Tobacco use disorder,Coronary artery disease involving [place] coronary artery of [place] heart without angina pectoris,Hx of CABG Place 1 Patch over 24 hours topically on the skin in the morning. On upper body/outer arm, change once a day for two weeks.. 14 Patch 025 Active Nicotine 21 MG/24HR Transdermal Patch 24 Hour (Nicoderm CQ)Indications:Sy mptomatic carotid artery narrowing without infarction, right,Tobacco use disorder,Coronary artery disease involving [place] coronary artery of [place] heart without angina pectoris,Hx of CABG Place 1 Patch over 24 hours topically on the skin in the morning. On upper body/upper arm, change once a day for 6 weeks.. 42 Patch 025 Active Ezetimibe 10 MG Oral Tablet (Zetia)Indication s:Coronary artery disease involving [place] coronary artery of [place] heart without angina pectoris,Dyslipid emia, goal LDL [...] Coronary artery disease invo lving [place] coronary artery of [place] heart without angina pectoris 10/08/2021 Hx of [...] (Moderna) 01/23/2021,12/28/2020 Pneumococcal Conjugate Vacci ne, 20-valent ([id number]) 09/02/2022 Pneumococcal Polysaccharide PPV23 (Pneumovax) 09/01/2017 Seasonal [...] Progress Notes * Ryland Harrison DO - 12/15/2024 9:15 AM EST TIMEOUT PROCEDURE: correct patient identity-YES correct [...] DO, performed the procedure in its entirety. note to PCP regarding Remeron and alternatives f/u for start PRP 2-4 weeks (ERASTO OD, then OS) CC: Pete Pope, OD CC: PCP: Kia Goetz MD documented in this encounter Nursing Notes * Porsha Gray LPN - 12/15/2024 9:42 AM EST Clotilde Pope to receive first Avastin 2.75 mg Injection of the Left eye. Correct eye confirmed with patient and marked by Ryland Harrison DO Avastin 2.75 mg lot # [id number] Exp. Date: 02/08/2025 * Porsha Gray LPN - 12/15/2024 9:02 AM EST Clotilde Pope is a 79 year old year old female who presents for ocular ischemic syndrome OU. Last Office Visit: 12/08/2024 (in office), Visit date not found (telemedicine) Patient currently c/o seeing red strings in left eye. Looks like a vein. Has a black ribbon across the right eye Are you diabetic? No Do you drive? yes documented in this encounter Plan of Treatment Upcoming Encounters Date Type Department Care Team (Late st Contact Info) Description 12/16/2024 2:00 PM EST Appointment Vascular Lab [address] [place] [address] 12/16/2024 3:00 PM EST [facility] [address] [place] [address] Servando Rees MD [address] [place] [address] 01/03/2025 1:00 PM EDT Imaging Vascular Lab, [facility] 2nd Floor, [place] [address] [place] [address] 01/12/2025 11:10 AM EDT Office Visit Vascular Surgery, [facility] [address] [place] [address] Servando Rees MD [address] [place] [address] 01/12/2025 2:30 PM EDT Office Visit Ophthalmology, [facility] [address] [place] [address] Ryland Harrison DO [address] [facility] [place] [address] 02/22/2025 1:00 PM EDT Office Visit General Internal Medicine [facility] [address] [place] [address] Kia Goetz MD [address] [place] [address] Scheduled Orders Name Type Priority Associated Diagnoses Orde r Schedule RETINA SCAN DIAGNOSTIC IMAGE, POSTERIOR Procedures Routine Ocular ischemic syndrome Ordered: 12/15/2024 Health Maintenance Due Date Last Done Comments DISCUSS TOBACCO CESSATION (REFER TO SMARTSET #7865) 1945 Alpha-1 Antitrypsin 1965 Hepatitis C Screening [...] stage- Primary Ocular ischemic syndrome Retinal ischemia documented in this encounter Administered Medications Active Administered Medications - up to 3 most recent administrations Medication Order MAR Action Action Date Dose Rate Site bevaCIZumab (Avastin) inj 1.25 mg 1.25 mg, Intravitreal, PRN Other, Starting on Fri12/06/24 at 1405, Until Fri12/06/25 at 1404, For 365 daysIndications:Ocular ischemic syndrome,Retinal neovascularization of right eye Given 12/15/2024 9:43 AM EST 1.25 mg Eye Left Given 12/06/2024 2:24 PM EST 2.75 mg Ey e Right ROPivacaine (Naropin) inj 1.5 mg 1.5 mg, Injection, PRN Other, Starting on 12/06/24 at 1405, Until Tu12/06/25 at 1404, For 365 daysIndications:Ocular ischemic syndrome,Retinal neovascularization of right eye Given 12/15/2024 9:43 AM EST 1.5 mg Eye L eft Given 12/06/2024 2:23 PM EST 1.5 mg Ey e Right documented in this encounter Care Teams Safety Companion Relationship Specialty Start Date End Date Kia Goetz MD [address] [place] [address] PCP - General Internal Medicine 10/08/21 documented as of this encounter
--- OUTSIDE RECORDS SUMMARY | 2025-01-31 06:36 | External Medical Summary | Summary of Care ---
Author Name Unknown Organization [facility] Address [address] [place] [address] Phone [phone] Care Team Providers Care Wet Washer Machine Name Role Phone Kia Goetz MD Primary Care Provider [phone] Encounter Details Date Type Department Care Team (Latest Contact Info) Description 12/16/2024 1:43 PM EST - 12/16/2024 11:59 PM EST Hospital Encounter Vascular Lab [place] [address] [place] [address] Arrived Discharge Disposition: Home - Self Care Allergies Active Allergy Reactions Criticality Noted Date Comments Mometasone Furoate 01/08/2022 Blisters sides of mouth Duloxetine Hcl Low 10/08/2021 Not allergic, just doesn't work Levofloxacin High 10/08/2021 Becomes deathly ill documented as of this encounter (statuses as of 12/17/2024) Medications ZyrTEC Allergy 10 MG Oral Capsule (Cetirizine HCl) Take 1 Capsule by mouth in the morning. Active Famotidine 20 MG Oral Tablet (Pepcid) Take 1 Tablet by mouth 2 times a day as needed for Heartburn. -uses 2/wk 10/08/20 21 Active Aspirin 325 MG Oral TabletIndications: Coronary artery disease involving morongo coronary artery of morongo heart without angina pectoris,Hx of CABG,S/P carotid [...] Tablet Sublingual (Nitrostat)Indicat ions:Coronary artery disease involving morongo coronary artery of morongo heart without angina pectoris Place 1 Tablet [...] Hour (toPROL XL)Indications:Cor onary artery disease involving morongo coronary artery of morongo heart without angina pectoris TAKE 1 TABLET [...] Oral Tablet (Lipitor)Indicatio ns:Coronary artery disease involving morongo coronary artery of morongo heart without angina pectoris,Dyslipide bryanna, goal LDL [...] disorder,COPD, group A, by GOLD 2017 classification ([facility]) Inhale 2 Puffs by mouth every 4 hours as needed for Wheezing. 18 g 1 12/13/19 25 Active Nicotine 14 MG/24HR Transdermal Patch 24 Hour (Nicoderm CQ)Indications:Ocu lar ischemic syndrome,Symptomat ic carotid artery narrowing without infarction, right,Tobacco use disorder,Coronary artery disease involving morongo coronary artery of morongo heart without angina pectoris,Hx of CABG Place 1 Patch over 24 hours topically on the skin in the morning. On upper body/outer arm, change once a day for two weeks.. 14 Patch 12/13/19 25 Active Nicotine 7 MG/24HR Transdermal Patch 24 Hour (Nicoderm CQ)Indications:Sym ptomatic carotid artery narrowing without infarction, right,Tobacco use disorder,Coronary artery disease involving morongo coronary artery of morongo heart without angina pectoris,Hx of CABG Place 1 Patch over 24 hours topically on the skin in the morning. On upper body/outer arm, change once a day for two weeks.. 14 Patch 12/13/19 25 Active Nicotine 21 MG/24HR Transdermal Patch 24 Hour (Nicoderm CQ)Indications:Sym ptomatic carotid artery narrowing without infarction, right,Tobacco use disorder,Coronary artery disease involving morongo coronary artery of morongo heart without angina pectoris,Hx of CABG Place 1 Patch over 24 hours topically on the skin in the morning. On upper body/upper arm, change once a day for 6 weeks.. 42 Patch 12/13/19 25 Active Ezetimibe 10 MG Oral Tablet (Zetia)Indications :Coronary artery disease involving morongo coronary artery of morongo heart without angina pectoris,Dyslipide bryanna, goal LDL [...] as of this encounter (statuses as of 12/17/2024) Active Problems Problem Noted Date Diagnosed Date [...] RT arm Coronary artery disease invo lving morongo coronary artery of morongo heart without angina pectoris 10/08/2021 Hx of [...] as of this encounter (statuses as of 12/17/2024) Resolved Problems Problem Noted Date Diagnosed Date Resolved Date Caregiver stress 06/22/2024 12/13/2024 Bilateral carotid artery stenosis 10/22/2021 08/11/2023 COPD, severity to be determined 10/08/2021 01/01/2023 Overview: Per COPD GOLD Classification documented as of this encounter (statuses as of 12/17/2024) Immunizations Name Administration Dates Next Due COVID-19 mRNA, LNP-s, No Pre serve, 2-Dose Series (Moderna) 01/23/2021,12/28/2020 Pneumococcal Conjugate Vacci ne, 20-valent ([id number]) 09/02/2022 Pneumococcal Polysaccharide PPV23 (Pneumovax) 09/01/2017 Seasonal [...] 12/21/2024 12:45 PM EST Office Visit Ophthalmology, [facility] [address] [place] [address] Ryland Harrison DO [address] [place] [address] 01/03/2025 1:00 PM EDT Imaging Vascular Lab, [address] [place] [address] 01/12/2025 11:10 AM EDT Office Visit Vascular Surgery, [facility] [address] [facility] [place] [address] Servando Rees MD [address] [place] [address] 01/20/2025 12:51 PM EDT Hospital Encounter OR [facility], OPERATING ROOM [facility], [facility] [address] [place] [facility] [address] Servando Rees MD [address] [place] [facility] [place] [address] 01/20/2025 12:51 PM EDT - 01/20/2025 4:50 PM EDT Surgery OR [facility], OPERATING ROOM [facility] [address] [place] [facility] [address] Servando Rees MD [address] [place] [facility] [address] CAROTID ENDARTERECTOMY 01/28/2025 8:30 AM EDT Imaging Vascular Lab, [address] [place] [address] 02/09/2025 1:50 PM EDT Office Visit Vascular Surgery, [facility] [place] [address] Servando Rees MD [address] [place] [address] 02/22/2025 1:00 PM EDT Office Visit General Internal Medicine [facility] [address] [place] [address] Kia Goetz MD [address] [place] [address] Scheduled Procedures Name Priority Associated Diagnoses Date/Ti me CAROTID ENDARTERECTOMY 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 01/20/2025 12:51 PM EDT CAROTID STENT WITH OPEN EXPOSURE WITH RADIOLOGIC SUPERVISION AND INTERPRETATION 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 01/20/2025 12:51 PM EDT Health Maintenance Due Date Last Done Comments DISCUSS TOBACCO CESSATION (REFER TO SMARTSET #0108) 1945 Alpha-1 Antitrypsin 1965 Hepatitis C Screening [...] Procedure Name Priority Date/Time Associated Diagnosis Comments [facility] DUPLEX CAROTID BILAT Routine 12/16/2024 3:32 PM EST S/P carotid endarterectomy Symptomatic stenosis of right carotid artery without infarction documented in this encounter Results * VASC DUPLEX CAROTID BILAT (12/16/2024 3:32 PM EST) Anatomical Region Laterality Modality Neck, Vascular Ultrasound Narrative 12/16/2024 5:03 PM EST VASCULAR LAB RESULTS DATE OF EXAM: 12/16/24 PRESENTING CONDITIONS: Carotid stenosis PHYSICIAN REPORT Carotid Artery Duplex Examination Immediately before proceeding with the vascular lab procedure reported below, the identity of the patient, the correct exam and the correct procedural site were verified. Ann scale and color flow Doppler imaging was performed for evaluation of the right carotid artery. Duplex examination of the right carotid artery identifies atherosclerotic plaque at the carotid bifurcation. The plaque is echogenic and appears to have an irregular surface. Color Doppler imaging was performed for evaluation of the right carotid bifurcation. Spectral analysis of the right internal carotid artery demonstrates peak systolic velocities of 74 cm/sec. Maximum end diastolic velocities are 26 cm/sec.. Peak right common carotid velocity is 219 cm/sec. The right internal carotid to common carotid ratio is 0.3. The right external carotid artery has a peak velocity of 47 centimeters per second. Ann scale and color flow Doppler imaging was performed for the evaluation of the left carotid artery. Duplex examination of the left carotid artery identifies atherosclerotic plaque at the carotid bifurcation. The plaque is echogenic and appears to have an irregular surface. Color Doppler imaging was performed for the evaluation of the left carotid bifurcation. Spectral analysis of the left internal carotid artery demonstrates peak systolic velocities of 69 cm/sec. Maximum end diastolic velocities are 27 cm/sec. Peak left common carotid velocity is 51 cm/sec. The left internal carotid to common carotid ratio is 1.3. The left external carotid artery is retrograde and has a peak velocity of 46 centimeters per second. The right vertebral artery demonstrates antegrade flow. The left vertebral artery demonstrates retrograde flow. Right subclavian artery has a peak systolic velocity of 170 centimeters per second. Right brachial pressure is 128 mm/Hg. Left subclavian artery has a peak systolic velocity of 127 centimeters per second. Left brachial pressure is 90 mm/Hg. Impression: Right carotid artery duplex examination indicates evidence of less than 50% stenosis of the internal carotid artery. Left carotid artery duplex examination indicates evidence of less than 50% stenosis of the internal carotid artery. Elevated velocities in the right common carotid artery suggestive of stenosis. Consider alternative imaging if clinically indicated. Retrograde flow noted in the left vertebral artery which may represent a proximal stenosis or occlusion. Gregg Fonseca PA-C RAD VASCULAR Final Re sult documented in this encounter Care Teams Wet Washer Machine Relationship Specialty Start Date End Date Kia Goetz MD [address] [facility] [place] [address] PCP - General Internal Medicine 10/08/21 documented as of this encounter
--- OUTSIDE RECORDS SUMMARY | 2025-01-31 06:36 | External Medical Summary | Summary of Care ---
Author Name Unknown Organization [facility] Address [address] [place] [address] Phone [phone] Care Team Providers Care Soil Tester Name Role Phone Kia Goetz MD Primary Care Provider [phone] Reason for Visit * Reason Comments Follow Up Encounter Details Date Type Department Care Team (Late st Contact Info) Description 12/16/2024 3:00 PM EST Office Visit Vascular Surg [facility] [address] [place] [address] Servando Rees MD [address] [place], [place] [id number] Symptomatic stenosis of left carotid artery without [...] MG Oral TabletIndications: Coronary artery disease involving [place] coronary artery of [place] heart without angina pectoris,Hx of CABG,S/P carotid [...] Tablet Sublingual (Nitrostat)Indicat ions:Coronary artery disease involving [place] coronary artery of [place] heart without angina pectoris Place 1 Tablet [...] Hour (toPROL XL)Indications:Cor onary artery disease involving [place] coronary artery of [place] heart without angina pectoris TAKE 1 TABLET [...] Oral Tablet (Lipitor)Indicatio ns:Coronary artery disease involving [place] coronary artery of [place] heart without angina pectoris,Dyslipide bryanna, goal LDL [...] infarction, right,Tobacco use disorder,Coronary artery disease involving [place] coronary artery of [place] heart without angina pectoris,Hx of CABG Place 1 Patch over 24 hours topically on the skin in the morning. On upper body/outer arm, change once a day for two weeks.. 14 Patch 12/13/19 25 Active Nicotine 7 MG/24HR Transdermal Patch 24 Hour (Nicoderm CQ)Indications:Sym ptomatic carotid artery narrowing without infarction, right,Tobacco use disorder,Coronary artery disease involving [place] coronary artery of [place] heart without angina pectoris,Hx of CABG Place 1 Patch over 24 hours topically on the skin in the morning. On upper body/outer arm, change once a day for two weeks.. 14 Patch 12/13/19 25 Active Nicotine 21 MG/24HR Transdermal Patch 24 Hour (Nicoderm CQ)Indications:Sym ptomatic carotid artery narrowing without infarction, right,Tobacco use disorder,Coronary artery disease involving [place] coronary artery of [place] heart without angina pectoris,Hx of CABG Place 1 Patch over 24 hours topically on the skin in the morning. On upper body/upper arm, change once a day for 6 weeks.. 42 Patch 12/13/19 25 Active Ezetimibe 10 MG Oral Tablet (Zetia)Indications :Coronary artery disease involving [place] coronary artery of [place] heart without angina pectoris,Dyslipide bryanna, goal LDL [...] RT arm Coronary artery disease invo lving [place] coronary artery of [place] heart without angina pectoris 10/08/2021 Hx of [...] (Moderna) 01/23/2021,12/28/2020 Pneumococcal Conjugate Vacci ne, 20-valent ([id number]) 09/02/2022 Pneumococcal Polysaccharide PPV23 (Pneumovax) 09/01/2017 Seasonal [...] S/P right carotid endarterectomy in 08/04 in [facility] where she lived her whole life. "Waxy" vision in right prompted evaluation by [facility] who diagnosed ischemic retina approximately two weeks ago. Dr Goetz then obtained CTA head and neck revealing high grade right CCA dense plaque stenosis with aneurysmal degeneration of right CEA site. 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 CORONARY DISEASE S/p CABG x 3 (OM, RCA, MORGAN) 04/2015 at [facility] in [place]. No symptoms now. CABG did have MORGAN to LAD but target and graft poor and did not work at time of initial surgery so left with OM and RCA as targets for CABG only. Her had CABG in [place] in 2021 (he has diabetes and never recovered his strength after the CABG) PAD She has pain in bilateral anterior thighs with ambulation L=R She can walk all over [facility] as long as she pushes the [...] Problem List Diagnosis Coronary artery disease involving [place] coronary artery of [place] heart without angina pectoris Hx of CABG PVD (peripheral vascular disease) with claudication ([facility]) History of right-sided carotid endarterectomy Tobacco use disorder Lumbar degenerative disc disease History of lumbar laminectomy Dyslipidemia, goal LDL below 70 Seasonal allergic rhinitis due to pollen Adjustment disorder with mixed anxiety and depressed mood Prediabetes SIXTO (generalized anxiety disorder) Ocular migraine Occlusion of left subclavian artery COPD, group A, by GOLD 2017 classification ([facility]) Symptomatic stenosis of right carotid artery without infarction Carotid artery aneurysm (HCC) Stenosis of extracranial carotid artery, right HTN, goal below 140/80 Ocular ischemic syndrome Past Medical History: Diagnosis Date COPD (chronic obstructive pulmonary disease) ([facility]) H/O carotid endarterectomy 2016 right H/O microdiscectomy [...] AVASTIN OU CONSENT DR. HARRISON EXP. 12/06/25 CT RPLCMT PROST AORTIC VALVE OPEN XCP HOMOGRF/STENT 2014 CT TEAEC W/PATCH GRF CAROTID VERTB SUBCLAV NECK INC 2016 Family History Problem Relation Name Age of Onset Colon cancer Mother With mets to brain, age 97 Hypertension Mother Macular degeneration Mother Heart attack Father Fatal [place] age 39 Asthma Sister Breast Cancer Sister [...] pain, shortness of breath, palpitations, angina or [place] Neurological: Negative for stroke, TIA, amaurosis fugax [...] carotid duplex 1 wk prior, all at [facility] The patient was seen and examined with Servando Rees MD. Gregg Fonseca [facility] Section of Vascular [place] [address] [phone] I have reviewed the advanced practitioner's documentation [...] with me. Her son has PHD at [facility] in [place], [place]. The patient was counseled [...] of such modification for long-term health. [facility] Vascular Surgery Carotid Endarterectomy Procedures Booklet was given to the patient given I am doing both CEA and stent. Servando Rees MD Section of Vascular and Endovascular Surgery [place], [place] [id number] [phone] documented in this encounter Plan of Treatment Upcoming Encounters Date Type Department Care Team (Late st Contact Info) Description 01/03/2025 1:00 PM EDT Imaging Vascular Lab, [facility] [address] [place] [address] 01/12/2025 11:10 AM EDT Office Visit Vascular Surgery, [facility] [address] [facility] [place] [address] Servando Rees MD [address] [place] [address] 01/12/2025 2:30 PM EDT Office Visit Ophthalmology, [facility] [address] [facility] [place] [address] Ryland Harrison DO [address] [facility] [place] [address] 01/20/2025 Hospital Encounter OR [facility], OPERATING ROOM [facility] [address] [place] [address] Servando Rees MD [address] [place] [address] 02/22/2025 1:00 PM EDT Office Visit General Internal Medicine [facility] [place] [address] [facility] [place] [address] Kia Goetz MD [address] [facility] [place] [address] Scheduled Orders Name Type Priority Associated Diagnoses [...] Comments DISCUSS TOBACCO CESSATION (REFER TO SMARTSET #2538) 1945 Alpha-1 Antitrypsin 1965 Hepatitis C Screening 1965 DTap/Tdap Vaccines (1 - Tdap) 1966 Zoster Vaccines (1 of 2) 1966 Lung Cancer Screening 1997 Adult Wellness Visit 2013 DXA Scan 09/04/2022 09/04/2015 COVID-19 Vaccine ( - season) 2024 08/20/2021, 01/23/2021, 12/28/2020 Influenza [...] ischemia documented in this encounter Care Teams Soil Tester Relationship Specialty Start Date End Date Kia Goetz MD [address] [facility] [place] [address] PCP - General Internal Medicine 10/08/21 documented as of this encounter
--- OUTSIDE RECORDS SUMMARY | 2025-01-31 06:37 | External Medical Summary | Summary of Care ---
Author Name Unknown Organization [facility] Address [address] [facility] [place] [address] Phone [phone] Care Team Providers Care Imaging Specialist Name Role Phone Kia Goetz MD Primary Care Provider [phone] Reason for Visit * Reason Onset Date Comments Appointment 12/08/2024 Acute appointmen t needed Encounter Details Date Type Department Care Team (Late st Contact Info) Description 12/08/2024 Telephone Ophthalmology, [facility] [address] [place] [address] Ryland Harrison, DO [address] [place] [address] Appointment (Acute appointment needed ) Allergies Active Allergy Reactions Criticality Noted Date Comments Mometasone Furoate 01/08/2022 Blisters sides of mouth Duloxetine Hcl Low 10/08/2021 Not allergic, just doesn't work Levofloxacin High 10/08/2021 Becomes deathly ill documented as of this encounter (statuses as of 12/08/2024) Medications ZyrTEC Allergy 10 MG Oral Capsule (Cetirizine HCl) Take 1 Capsule by mouth in the morning. Active Famotidine 20 MG Oral Tablet (Pepcid) Take 1 Tablet by mouth 2 times a day as needed for Heartburn. -uses 2/wk 10/08/20 21 Active Aspirin 325 MG Oral TabletIndications: Coronary artery disease involving [place]sem[place] indian tribe coronary artery of [place]sem[place] indian tribe heart without angina pectoris,Hx of CABG,S/P carotid [...] Tablet Sublingual (Nitrostat)Indicat ions:Coronary artery disease involving [place] indian tribe coronary artery of nansem[place] indian tribe heart without angina pectoris Place 1 Tablet under the tongue as needed for Pain, Chest. May repeat 3 times. If chest pain continues, call 911. 25 Tablet 08/11/20 23 Active Vitamin D-3 25 MCG (1000 UT) Oral CapsuleIndications :Longitudinal ridging of nail,Vitamin D insufficiency 1 capsule daily--inc 02/10/2024 02/10/20 24 Active Ezetimibe 10 MG Oral Tablet (Zetia)Indications :Coronary artery disease involving [place] indian tribe coronary artery of [place] indian tribe heart without angina pectoris,Dyslipide bryanna, goal LDL below 70 TAKE 1 TABLET BY MOUTH EVERY DAY IN THE MORNING 90 Tablet 3 03/10/20 24 Active Metoprolol Succinate ER 25 MG Oral Tablet Extended Release 24 Hour (toPROL XL)Indications:Cor onary artery disease involving [place] indian tribe coronary artery of [place]sem[place] indian tribe heart without angina pectoris TAKE 1 TABLET BY MOUTH EVERY DAY IN THE MORNING 90 Tablet 3 05/01/20 24 Active Butalbital-Acetami nophen 50-325 MG Oral TabletIndications: Lumbar degenerative disc disease,Chronic neck and back pain Take 1 Tablet by mouth daily as needed for Pain, Moderate or Pain, Severe (neck pain). 30 Tablet 05/10/20 24 Active Ventolin HFA 108 (90 Base) MCG/ACT Inhalation Aerosol SolutionIndication s:COPD, group A, by GOLD 2017 classification (HCC),Tobacco use disorder Inhale 2 Puffs by mouth every 4 hours as needed for Wheezing. 18 g 1 05/27/20 24 Active HYDROcodone-Acetam inophen 5-325 MG Oral TabletIndications: S/P wisdom tooth extraction,Pain in gums Take 1 Tablet by mouth every 8 hours as needed for Pain, Moderate (tooth pain sp extraction 05/28/24). 21 Tablet 06/07/20 24 Active Additional Information Patient not taking.Reported on 08/11/2024 Reyna Ellipta 100-62.5-25 MCG/ACT Aerosol Powder Breath ActivatedIndicatio ns:Tobacco use disorder,COPD, group A, by GOLD 2017 classification ([facility]),Abnormal lung sounds INHALE 1 PUFF BY MOUTH IN THE MORNING. -FROM 08/11/2023. 60 Each 5 07/06/20 24 Active Mirtazapine 7.5 MG Oral Tablet (Remeron)Indicatio ns:Adjustment disorder with depressed mood,Caregiver stress,Adjustment disorder with mixed anxiety and depressed mood,Loss of appetite for more than 2 weeks Take 1 Tablet by mouth at bedtime. 30 Tablet 08/11/20 24 Active Atorvastatin Calcium 40 MG Oral Tablet (Lipitor)Indicatio ns:Coronary artery disease involving [place] indian tribe coronary artery of [place]sem[place] indian tribe heart without angina pectoris,Dyslipide bryanna, goal LDL [...] 2 TIMES PER DAY 12/01/19 25 Active Hospital, Clinic, or Other Facility Administered Medication Ordered Dose Route Frequency Start Date End Date Status bevaCIZumab (Avastin) inj 1.25 mgIndications:Ocular ischemic syndrome,Retinal neovascularization of right eye 1.25 mg IZ PRN 12/06/2024 12/06/2025 Active ROPivacaine (Naropin) inj 1.5 mgIndications:Ocular ischemic syndrome,Retinal neovascularization of right eye 1.5 mg IJ PRN 12/06/2024 12/06/2025 Active documented as of this encounter (statuses as of 12/08/2024) Active Problems Problem Noted Date Diagnosed Date Stenosis of extracranial carotid artery, right 1 HTN, goal below 140/80 08/11/2024 Caregiver stress 06/22/2024 Symptomatic stenosis of righ t carotid artery without infarction 05/19/2024 Carotid artery aneurysm 05/19/2024 COPD, group A, by GOLD 2017 classification 12/30 Overview: Per COPD GOLD Classification Occlusion of left subclavian artery 01/08/2022 Overview (01/08/2022): All BP to be in RT arm Coronary artery disease invo lving [place]sem[place] indian tribe coronary artery of nansem[place] indian tribe heart without angina pectoris 10/08/2021 Hx of [...] as of this encounter (statuses as of 12/08/2024) Resolved Problems Problem Noted Date Diagnosed Date Resolved Date Bilateral carotid artery stenosis 10/22/2021 08/11/2023 COPD, severity to be determined 10/08/2021 01/01/2023 Overview: Per COPD GOLD Classification documented as of this encounter (statuses as of 12/08/2024) Immunizations Name Administration Dates Next Due COVID-19 mRNA, LNP-s, No Pre serve, 2-Dose Series (Moderna) 01/23/2021,12/28/2020 Pneumococcal Conjugate Vacci ne, 20-valent ([id number]) 09/02/2022 Pneumococcal Polysaccharide PPV23 (Pneumovax) 09/01/2017 Seasonal Influenza, Quadriva lent Hd (Fluzone [...] Miscellaneous Notes * Telephone Encounter - Susan Quezada TECH - 12/08/2024 1:[address] Pope pt does not need seen at 12/09/24 appt with him at [facility]. Pt to follow up with him PRN and 12/09/24 appt cancelled. Pt aware. LUANN Harding 12/08/2024 1:28 PM * Telephone Encounter - Porsha Gray LPN - 12/08/2024 11:11 AM EST Patient being seen today * Telephone Encounter - Susan Quezada TECH - 12/08/2024 11:02 AM EST "I have like a ribbon in my right eye and its straight across and its not moving and I can't see anything." No pain but "it feels weird and it is dramatically worse than it was" Will speak with Dr. Harrison to see if want to get patient on schedule today. LUANN Harding 12/08/2024 11:05 AM * Telephone Encounter - Jazmyne Mendoza OSA - 12/08/2024 8:35 AM EST Images from the original note were not included. Who is calling? Patient Best way to reach patient or person calling, if call back needed by nurse or physician: [phone] Patient complaint/concern: Patient is seeing holes in her eye OD seeing a ribbon moving straight across the center of her eye Location: Right eye How long has it been going on: 2 days Timing: constant Associated symptoms: peripheral visual loss If having pain, have patient rate pain on a scale from 0 to 10 (10 being the worst pain ever) Yes Characterization- / Scale- If patient needs Automatic add to Urgent Care (Acute clinic) appointment and declined what is the reason:Same day appt offered declined due to transportation, needs to set something up that will workfor her. J[place] ONLY: NOTIFY PATIENT: PLEASE ALLOW US UP TO 48 HOURS FOR A RESPONSE *Person filling out this form: Once form completed, please route to p [phone] (triage nurse pool) . Please let patient know you have sent symptoms for triage and someone will reach out to patient with further instruction. Physician or nurse will triage & reply with instruction to appropriate pools as listed below. Thank you! *Physicians triaging patient, please reply to: -If only instructions needed- NO appointment scheduling needed, please route to p [phone] (triage nurse pool). -If instructions AND appointment needed, please route to p [phone] (triage nurse pool) and p [phone] (guest relations receptionist pool). [place] ONLY: Route all messages to P [phone] [facility] Ophthalmology triage pool NOTIFY PATIENT: PLEASE ALLOW US UP TO 48 HOURS FOR A RESPONSE [place]: NOTIFY PATIENT: PLEASE ALLOW US UP TO 48 HOURS FOR A RESPONSE documented in this encounter Plan of Treatment Upcoming Encounters Date Type Department Care Team (Late st Contact Info) Description 12/13/2024 11:20 AM EST Office Visit General Internal Medicine [facility] [address] [place] [address] Kia Goetz MD [address] [place] [address] 12/15/2024 9:15 AM EST Office Visit Ophthalmology, [facility] [address] [facility] [place] [address] Ryland Harrison DO [address] [facility] [place] [address] 12/16/2024 2:00 PM EST Appointment Vascular Lab [place] [address] [place] [address] 12/16/2024 3:00 PM EST Office Visit Vascular Surg [place] [address] [place] [address] Servando Rees MD [facility] [place] [address] 01/03/2025 1:00 PM EDT Imaging Vascular Lab, [facility] 2nd [facility] [address] [facility] [place] [address] 01/12/2025 11:10 AM EDT Office Visit Vascular Surgery, [facility] [address] [facility] [place] [address] Servando Rees MD [facility] [place] [address] Health Maintenance Due Date Last Done Comments DISCUSS TOBACCO CESSATION (REFER TO SMARTSET #3291) 1945 Alpha-1 Antitrypsin 1965 Hepatitis C Screening 1965 DTap/Tdap Vaccines (1 - Tdap) 1966 Zoster Vaccines (1 of 2) 1966 Lung Cancer Screening 1997 Adult Wellness Visit 2013 DXA Scan 09/04/2022 09/04/2015 COVID-19 Vaccine ( - season) 2024 08/20/2021, 01/23/2021, 12/28/2020 Influenza Vaccine (FLU shot) (#1) 2024 08/11/2023, 09/02/2022, 10/08/2021 Depression Screening 08/11/2024 08/11/2023 O2 ASSESSMENT COMPLETED IN PAST YEAR FOR COPD 07/05/2025 07/05/2024 GFR 08/12/2025 08/12/2024, 07/3 10/2023, 04/01/2024, Additional history exists HbA1c 08/12/2025 08/12/2024, 04/2 12/2023, 08/11/2023, Additional history exists Albumin/Creatinine Ratio 08/11/2026 08/11/2023 [...] filedocumented as of this encounter Care Teams Imaging Specialist Relationship Specialty Start Date End Date Kia Goetz MD [address] [place] [address] PCP - General Internal Medicine 10/08/21 documented as of this encounter
--- OUTSIDE RECORDS SUMMARY | 2025-01-31 06:37 | External Medical Summary | Summary of Care ---
Author Name Unknown Organization [facility] Address [address] [place] [address] Phone [phone] Care Team Providers Care Dehairer Name Role Phone Kia Goetz MD Primary Care Provider [phone] Reason for Visit * Reason Onset Date Comments Vascular Study 12/07/2024 Appointment 12/07/2024 Encounter Details Date Type Department Care Team (Late st Contact Info) Description 12/07/2024 Telephone Vascular Surg [facility] [address] [place] [address] Gregg Fonseca PA-C [address] [place] [address] Vascular Study; Appointment Allergies Active Allergy Reactions Criticality Noted Date Comments Mometasone Furoate 01/08/2022 Blisters sides of mouth Duloxetine Hcl Low 10/08/2021 Not allergic, just doesn't work Levofloxacin High 10/08/2021 Becomes deathly ill documented as of this encounter (statuses as of 12/07/2024) Medications ZyrTEC Allergy 10 MG Oral Capsule (Cetirizine HCl) Take 1 Capsule by mouth in the morning. Active Famotidine 20 MG Oral Tablet (Pepcid) Take 1 Tablet by mouth 2 times a day as needed for Heartburn. -uses 2/wk 10/08/20 21 Active Aspirin 325 MG Oral TabletIndications: Coronary artery disease involving [place] coronary artery of [place] heart without angina pectoris,Hx of CABG,S/P carotid [...] Tablet Sublingual (Nitrostat)Indicat ions:Coronary artery disease involving [place] coronary artery of newtok heart without angina pectoris Place 1 Tablet under the tongue as needed for Pain, Chest. May repeat 3 times. If chest pain continues, call 911. 25 Tablet 08/11/20 23 Active Vitamin D-3 25 MCG (1000 UT) Oral CapsuleIndications :Longitudinal ridging of nail,Vitamin D insufficiency 1 capsule daily--inc 02/10/2024 02/10/20 24 Active Ezetimibe 10 MG Oral Tablet (Zetia)Indications :Coronary artery disease involving [place] coronary artery of [place] heart without angina pectoris,Dyslipide bryanna, goal LDL below 70 TAKE 1 TABLET BY MOUTH EVERY DAY IN THE MORNING 90 Tablet 3 03/10/20 24 Active Metoprolol Succinate ER 25 MG Oral Tablet Extended Release 24 Hour (toPROL XL)Indications:Cor onary artery disease involving [place] coronary artery of newtok heart without angina pectoris TAKE 1 TABLET [...] Additional Information Patient not taking.Reported on 08/11/2024 Trelegy Ellipta 100-62.5-25 MCG/ACT Aerosol Powder Breath ActivatedIndicatio ns:Tobacco use disorder,COPD, group A, by GOLD 2017 classification ([facility]),Abnormal lung sounds INHALE 1 PUFF [...] Oral Tablet (Lipitor)Indicatio ns:Coronary artery disease involving [place] coronary artery of [place]tok heart without angina pectoris,Dyslipide bryanna, goal LDL [...] as of this encounter (statuses as of 12/07/2024) Active Problems Problem Noted Date Diagnosed Date [...] RT arm Coronary artery disease invo lving [place] coronary artery of [place]tok heart without angina pectoris 10/08/2021 Hx of [...] as of this encounter (statuses as of 12/07/2024) Resolved Problems Problem Noted Date Diagnosed Date Resolved Date Bilateral carotid artery stenosis 10/22/2021 08/11/2023 COPD, severity to be determined 10/08/2021 01/01/2023 Overview: Per COPD GOLD Classification documented as of this encounter (statuses as of 12/07/2024) Immunizations Name Administration Dates Next Due COVID-19 mRNA, LNP-s, No Pre serve, 2-Dose Series (Moderna) 01/23/2021,12/28/2020 Pneumococcal Conjugate Vacci ne, 20-valent ([id number]) 09/02/2022 Pneumococcal Polysaccharide PPV23 (Pneumovax) 09/01/2017 Seasonal [...] encounter Miscellaneous Notes * Telephone Encounter - Jennifer Mallory LPN - 12/07/2024 1:54 PM EST Spoke with patient and offered her an appt this week in [place] and she has declined. She states that her son brings her to her appts and he is away on work right now. He will not be back until the so it would have to be after that. I offered her 12/13, 12/16 and 12/17 She states the only day she can do is 12/16 in the afternoon so her son only has to take a 1/2 day off of work. When she gets to speak with her son she is going to see if that is ok for 12/16 and if not she will call back to reschedule. Jennifer Mallory LPN 12/07/2024 1:56 PM * Telephone Encounter - Gregg Fonseca PA-C - 12/07/2024 1:13 PM EST See if pt can come to [facility], to see MALIKA Bello. We can either match appointment w/ carotid duplex or add on * Telephone Encounter - Jennifer Mallory LPN - 12/07/2024 12:57 PM EST First opening for testing in [facility] is not until 12/23. Please advise. Jennifer Mallory LPN 12/07/2024 12:57 PM * Telephone Encounter - Gregg Fonseca PA-C - 12/07/2024 11:26 AM EST Jennifer/Milan Boogie received the below message from Dr. Rees: Adair Pope has appt with us at [facility] December but eye doctor thinks she should consider redo cea sooner than latter Patient cancelled surgery before due to illness of Can we see tomorrow with repeat carotid duplex today or tomorrow? Thanks Roman Can we get pt in for F/U carotid duplex, anytime BTW now and next Wed 01/12 @ [facility]? (Updated order for duplex signed) In addition, patient needs F/U appointment @ [facility] on 01/12 but after 10 AM because pt is having eye injection @ [facility] by Ophthalmology @ 915 AM Patient is aware for need for updated duplex and visit. Thank you ALEKSEY documented in this encounter Plan of Treatment Upcoming Encounters Date Type Department Care Team (Late st Contact Info) Description 12/13/2024 11:20 AM EST Office Visit General Internal Medicine [facility] [address] [facility] [place] [address] Kia Goetz MD [address] [facility] [place] [address] 12/15/2024 9:15 AM EST Office Visit Ophthalmology, [facility] [address] [place] [address] Ryland Harrison DO [address] [place] [address] 12/16/2024 2:00 PM EST Appointment [address]ascular Lab [address] [address] 12/16/2024 3:00 PM EST Office Visit Vascular Surg [facility] [place] [address] [place] [address] Servando Rees MD [address] [place] [address] 01/03/2025 1:00 PM EDT Imaging Vascular Lab, [facility] 2nd [facility] [address] [facility] [place] [address] 01/12/2025 11:10 AM EDT Office Visit Vascular Surgery, [facility] [address] [facility] [place] [address] Servando Rees MD [address] [place] [address] Scheduled Orders Name Type Priority Associated Diagnoses Orde r Schedule VASC DUPLEX CAROTID BILAT Medical Imaging Routine S/P carotid endarterectomy Symptomatic stenosis of right carotid artery without infarction Ordered: 12/07/2024 Health Maintenance Due Date Last Done Comments DISCUSS TOBACCO CESSATION (REFER TO SMARTSET #3356) 1945 Alpha-1 Antitrypsin 1965 Hepatitis C Screening [...] as of this encounter Visit Diagnoses Diagnosis S/P carotid endarterectomy- Primary Other postprocedural status Symptomatic stenosis of right carotid artery without infarction documented in this encounter Care Teams Dehairer Relationship Specialty Start Date End Date Kia Goetz MD [address] [place] [address] PCP - General Internal Medicine 10/08/21 documented as of this encounter
--- OUTSIDE RECORDS SUMMARY | 2025-01-31 06:37 | External Medical Summary | Summary of Care ---
Author Name Unknown Organization [facility] Address [address] [place] [address] Phone [phone] Care Team Providers Care Hand Mica Plate Layer Name Role Phone Kia Goetz MD Primary Care Provider [phone] Reason for Visit * Reason Onset Date Comments Vascular Study 12/07/2024 Appointment 12/07/2024 Encounter Details Date Type Department Care Team (Late st Contact Info) Description 12/07/2024 Telephone Vascular Surg [facility] [address] [place] [address] Gregg Fonseca PA-C [address] [place] [address] Vascular Study; Appointment Allergies Active [...] MG Oral TabletIndications: Coronary artery disease involving [place] coronary artery of [place] heart without angina pectoris,Hx of CABG,S/P carotid [...] Tablet Sublingual (Nitrostat)Indicat ions:Coronary artery disease involving [place] coronary artery of [place] heart without angina pectoris Place 1 Tablet under the tongue as needed for Pain, Chest. May repeat 3 times. If chest pain continues, call 911. 25 Tablet 08/11/20 23 Active Vitamin D-3 25 MCG (1000 UT) Oral CapsuleIndications :Longitudinal ridging of nail,Vitamin D insufficiency 1 capsule daily--inc 02/10/2024 02/10/20 24 Active Ezetimibe 10 MG Oral Tablet (Zetia)Indications :Coronary artery disease involving [place] coronary artery of [place] heart without angina pectoris,Dyslipide bryanna, goal LDL below 70 TAKE 1 TABLET BY MOUTH EVERY DAY IN THE MORNING 90 Tablet 3 03/10/20 24 Active Metoprolol Succinate ER 25 MG Oral Tablet Extended Release 24 Hour (toPROL XL)Indications:Cor onary artery disease involving [place] coronary artery of [place] heart without angina pectoris TAKE 1 TABLET [...] group A, by GOLD 2017 classification ([facility]),Abnormal lung sounds INHALE 1 PUFF BY [...] Oral Tablet (Lipitor)Indicatio ns:Coronary artery disease involving [place] coronary artery of [place] heart without angina pectoris,Dyslipide bryanna, goal LDL [...] RT arm Coronary artery disease invo lving [place] coronary artery of mary[place] ig[place] heart without angina pectoris 10/08/2021 Hx of [...] (Moderna) 01/23/2021,12/28/2020 Pneumococcal Conjugate Vacci ne, 20-valent ([id number]) 09/02/2022 Pneumococcal Polysaccharide PPV23 (Pneumovax) 09/01/2017 Seasonal [...] offered her an appt this week in [place] and she has declined. She states that [...] EST See if [place] come [place] [facility] MALIKA Bello. We can either [...] Adair Pope has appt with us at [facility] December but eye doctor thinks she should consider redo cea sooner than latter Patient cancelled surgery before due to illness of Can we see tomorrow with repeat carotid duplex today or tomorrow? Thanks Roman Can we get pt in for F/U carotid duplex, anytime BTW now and next Wed 01/12 @ [facility]? (Updated order for duplex signed) In addition, patient needs F/U appointment @ [facility] on 01/12 but after 10 AM because pt is having eye injection @ [facility] by Ophthalmology @ 915 AM Patient is aware for need for updated duplex and visit. Thank you ALEKSEY documented in this encounter Plan of Treatment Upcoming Encounters Date Type Department Care Team (Late st Contact Info) Description 12/13/2024 11:20 AM EST Office Visit General Internal Medicine [facility] [address] [facility] [place] [address] Kia Goetz MD [address] [facility] [place] [address] 12/15/2024 9:15 AM EST Office Visit Ophthalmology, [facility] [address] [place] [address] Ryland Harrison DO [address] [place] [address] 12/16/2024 2:00 PM EST Appointment Vascular Lab [address] [address] 12/16/2024 3:00 PM EST Office Visit Vascular [facility]urg [facility] [place] [address] [place] [address] Servando Rees MD [address] [place] [address] 01/03/2025 1:00 PM EDT Imaging Vascular Lab, [facility] 2nd [facility] [address] [place] [address] 01/12/2025 11:10 AM EDT Office Visit Vascular Surgery, [facility] [address] [place] [address] Servando Rees MD [address] [place] [address] Scheduled Orders Name Type Priority Associated Diagnoses Orde r Schedule VASC DUPLEX CAROTID BILAT Medical Imaging Routine S/P carotid endarterectomy Symptomatic stenosis of right carotid artery without infarction Ordered: 12/07/2024 Health Maintenance Due Date Last Done Comments DISCUSS TOBACCO CESSATION (REFER TO SMARTSET #9856) 1945 Alpha-1 Antitrypsin 1965 Hepatitis C Screening [...] infarction documented in this encounter Care Teams Hand Mica Plate Layer Relationship Specialty Start Date End Date Kia Goetz MD [address] [facility] [place] [address] PCP - General Internal Medicine 10/08/21 documented as of this encounter
--- OUTSIDE RECORDS SUMMARY | 2025-01-31 06:37 | External Medical Summary | Summary of Care ---
Author Name Unknown Organization [facility] Address [address] [facility] [place] [address] Phone [phone] Care Team Providers Care Orthotics Assistant Name Role Phone Kia Goetz MD Primary Care Provider [phone] Reason for Visit * Reason Onset Date Comments Pre Cert/Prior Auth 12/06/2024 Encounter Details Date Type Department Care Team (Late st Contact Info) Description 12/06/2024 Telephone Ophthalmology, [facility] [address] [place] [address] Ryland Harrison, [address] [place] [address] Pre Cert/Prior Auth Allergies Active Allergy Reactions Criticality Noted Date Comments Mometasone Furoate 01/08/2022 Blisters sides of mouth Duloxetine Hcl Low 10/08/2021 Not allergic, just doesn't work Levofloxacin High 10/08/2021 Becomes deathly ill documented as of this encounter (statuses as of 12/06/2024) Medications ZyrTEC Allergy 10 MG Oral Capsule (Cetirizine HCl) Take 1 Capsule by mouth in the morning. Active Famotidine 20 MG Oral Tablet (Pepcid) Take 1 Tablet by mouth 2 times a day as needed for Heartburn. 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 May repeat 3 times. If chest pain continues, call 911. 25 Tablet 08/11/20 23 Active Vitamin D-3 25 MCG (1000 UT) Oral CapsuleIndications :Longitudinal ridging of nail,Vitamin D insufficiency 1 capsule daily--inc 02/10/2024 02/10/20 24 Active Ezetimibe 10 MG Oral Tablet (Zetia)Indications :Coronary artery disease involving anvik coronary artery of anvik heart without angina pectoris,Dyslipide bryanna, goal LDL below 70 TAKE 1 TABLET BY MOUTH EVERY DAY IN THE MORNING 90 Tablet 3 03/10/20 24 Active Metoprolol Succinate ER 25 MG Oral Tablet Extended Release 24 Hour (toPROL XL)Indications:Cor onary artery disease involving anvik coronary artery of anvik heart without angina pectoris TAKE 1 TABLET [...] s:COPD, group A, by GOLD 2017 classification ([facility]),Tobacco use disorder Inhale 2 Puffs [...] A, by GOLD 2017 classification ([facility]),Abnormal lung sounds INHALE 1 PUFF [...] Oral Tablet (Lipitor)Indicatio ns:Coronary artery disease involving anvik coronary artery of anvik heart without angina pectoris,Dyslipide bryanna, goal LDL [...] 2 TIMES PER DAY 12/01/19 25 Active documented as of this encounter (statuses as of 12/06/2024) Active Problems Problem Noted Date Diagnosed Date [...] RT arm Coronary artery disease invo lving anvik coronary artery of anvik heart without angina pectoris 10/08/2021 Hx of [...] as of this encounter (statuses as of 12/06/2024) Resolved Problems Problem Noted Date Diagnosed Date Resolved Date Bilateral carotid artery stenosis 10/22/2021 08/11/2023 COPD, severity to be determined 10/08/2021 01/01/2023 Overview: Per COPD GOLD Classification documented as of this encounter (statuses as of 12/06/2024) Immunizations Name Administration Dates Next Due COVID-19 mRNA, LNP-s, No Pre serve, 2-Dose Series (Moderna) 01/23/2021,12/28/2020 Pneumococcal Conjugate Vacci ne, 20-valent ([id number]) 09/02/2022 Pneumococcal Polysaccharide PPV23 (Pneumovax) 09/01/2017 Seasonal [...] encounter Miscellaneous Notes * Telephone Encounter - Elsi Davison RN - 12/06/2024 1:51 PM EST New Medication Insurance: Medicare Provider: Ryland Harrison DO Tax ID: [id number] Office Address: [address] [place] [address] [place] [address] Office Office Drug Name/CPT: Avastin ICD 10: H35.059 Dosage: 2.75 mg Eye Treated: Right Frequency: Q 4-6 weeks Prior Eye medications received: None Specialty Pharmacy/Buy and bill? Office stock documented in this encounter Plan of Treatment Upcoming Encounters Date Type Department Care Team (Late st Contact Info) Description 12/13/2024 11:20 AM EST Office Visit General Internal Medicine [facility] [address] [facility] [place] [address] Kia Goetz MD [facility] [address] 12/15/2024 9:15 AM EST Office Visit Ophthalmology, [facility] [address] [facility] [place] [address] Ryland Harrison DO 132 [facility] [place] [address] 01/03/2025 1:00 PM EDT [facility] [address] [place] [address] 01/12/2025 11:10 AM EDT Office Visit Vascular Surgery, [address] [place] [address] Servando Rees MD [address] [facility] [address] Health Maintenance Due Date Last Done Comments DISCUSS TOBACCO CESSATION (REFER TO SMARTSET #0442) 1945 Alpha-1 Antitrypsin 1965 Hepatitis C Screening [...] filedocumented as of this encounter Care Teams Orthotics Assistant Relationship Specialty Start Date End Date Kia Goetz MD [address] [place] [id number] PCP - General Internal Medicine 10/08/21 documented as of this encounter
--- OUTSIDE RECORDS SUMMARY | 2025-01-31 06:37 | External Medical Summary | Summary of Care ---
Author Name Unknown Organization [facility] Address [address] [place] [address] Phone [phone] Care Team Providers Care Mask Inspector Name Role Phone Kia Goetz MD Primary Care Provider [phone] Reason for Visit * Reason Onset Date Comments Appointment 12/13/2024 Encounter Details Date Type Department Care Team (Late st Contact Info) Description 12/13/2024 Telephone General Internal Medicine [facility] 200 [place] [address] Kia Goetz MD 200 [facility] [address] Appointment Allergies Active Allergy Reactions Criticality Noted Date Comments Mometasone Furoate 01/08/2022 Blisters sides of mouth Duloxetine Hcl Low 10/08/2021 Not allergic, just doesn't work Levofloxacin High 10/08/2021 Becomes deathly ill documented as of this encounter (statuses as of 12/13/2024) Medications ZyrTEC Allergy 10 MG Oral Capsule (Cetirizine HCl) Take 1 Capsule by mouth in the morning. Active Famotidine 20 MG Oral Tablet (Pepcid) Take 1 Tablet by mouth 2 times a day as needed for Heartburn. -uses 2/wk 10/08/20 21 Active Aspirin 325 MG Oral TabletIndications: Coronary artery disease involving gakona coronary artery of gakona heart without angina pectoris,Hx of CABG,S/P carotid [...] Tablet Sublingual (Nitrostat)Indicat ions:Coronary artery disease involving gakona coronary artery of gakona heart without angina pectoris Place 1 Tablet under the tongue as needed for Pain, Chest. May repeat 3 times. If chest pain continues, call 911. 25 Tablet 08/11/20 Active Vitamin D-3 25 MCG (1000 UT) Oral CapsuleIndications :Longitudinal ridging of nail,Vitamin D insufficiency 1 capsule daily--inc 02/10/2024 02/10/20 Active Additional Information Patient not taking.Reported on 12/13/2024 Ezetimibe 10 MG Oral Tablet (Zetia)Indications :Coronary artery disease involving gakona coronary artery of gakona heart without angina pectoris,Dyslipide bryanna, goal LDL below 70 TAKE 1 TABLET BY MOUTH EVERY DAY IN THE MORNING 90 Tablet 3 03/10/20 24 Active Metoprolol Succinate ER 25 MG Oral Tablet Extended Release 24 Hour (toPROL XL)Indications:Cor onary artery disease involving gakona coronary artery of gakona heart without angina pectoris TAKE 1 TABLET BY MOUTH EVERY DAY IN THE MORNING 90 Tablet 3 05/01/20 24 Active Butalbital-Acetami nophen 50-325 MG Oral TabletIndications: Lumbar degenerative disc disease,Chronic neck and back pain Take 1 Tablet by mouth daily as needed for Pain, Moderate or Pain, Severe (neck pain). 30 Tablet 05/10/20 Active Additional Information Patient not taking.Reported on 12/13/2024 Trelegy Ellipta 100-62.5-25 MCG/ACT Aerosol Powder Breath ActivatedIndicatio ns:Tobacco use disorder,COPD, group A, by GOLD 2017 classification (HCC),Abnormal lung sounds INHALE 1 PUFF BY MOUTH IN THE MORNING. -FROM 08/11/2023. 60 Each 5 07/06/20 24 Active Additional Information Patient not taking.Reported on 12/13/2024 Atorvastatin Calcium 40 MG Oral Tablet (Lipitor)Indicatio ns:Coronary artery disease involving gakona coronary artery of gakona heart without angina pectoris,Dyslipide bryanna, goal LDL [...] 12/13/2024 30 Tablet 2 12/13/19 25 Active Ventolin HFA 108 (90 Base) [...] infarction, right,Tobacco use disorder,Coronary artery disease involving gakona coronary artery of gakona heart without angina pectoris,Hx of CABG Place 1 Patch over 24 hours topically on the skin in the morning. On upper body/outer arm, change once a day for two weeks.. 14 Patch 12/13/19 25 Active Nicotine 7 MG/24HR Transdermal Patch 24 Hour (Nicoderm CQ)Indications:Sym ptomatic carotid artery narrowing without infarction, right,Tobacco use disorder,Coronary artery disease involving gakona coronary artery of gakona heart without angina pectoris,Hx of CABG Place 1 Patch over 24 hours topically on the skin in the morning. On upper body/outer arm, change once a day for two weeks.. 14 Patch 12/13/19 25 Active Nicotine 21 MG/24HR Transdermal Patch 24 Hour (Nicoderm CQ)Indications:Sym ptomatic carotid artery narrowing without infarction, right,Tobacco use disorder,Coronary artery disease involving gakona coronary artery of gakona heart without angina pectoris,Hx of CABG Place 1 Patch over 24 hours topically on the skin in the morning. On upper body/upper arm, change once a day for 6 weeks.. 42 Patch 12/13/19 25 Active Hospital, Clinic, or Other Facility Administered Medication Ordered Dose Route Frequency Start Date End Date Status bevaCIZumab (Avastin) inj 1.25 mgIndications:Ocular ischemic syndrome,Retinal neovascularization of right eye 1.25 mg IZ PRN 12/06/2024 12/06/2025 Active ROPivacaine (Naropin) inj 1.5 mgIndications:Ocular ischemic syndrome,Retinal neovascularization of right eye 1.5 mg IJ PRN 12/06/2024 12/06/2025 Active documented as of this encounter (statuses as of 12/13/2024) Active Problems Problem Noted Date Diagnosed Date [...] RT arm Coronary artery disease invo lving gakona coronary artery of gakona heart without angina pectoris 10/08/2021 Hx of [...] as of this encounter (statuses as of 12/13/2024) Resolved Problems Problem Noted Date Diagnosed Date Resolved Date Caregiver stress 06/22/2024 12/13/2024 Bilateral carotid artery stenosis 10/22/2021 08/11/2023 COPD, severity to be determined 10/08/2021 01/01/2023 Overview: Per COPD GOLD Classification documented as of this encounter (statuses as of 12/13/2024) Immunizations Name Administration Dates Next Due COVID-19 mRNA, LNP-s, No Pre serve, 2-Dose Series (Moderna) 01/23/2021,12/28/2020 Pneumococcal Conjugate Vacci ne, 20-valent ([id number]) 09/02/2022 Pneumococcal Polysaccharide PPV23 (Pneumovax) 09/01/2017 Seasonal [...] Telephone Encounter - Kia Goetz MD - 12/13/2024 12:51 PM EST Noted. * Telephone Encounter - Alison Deal OSA - 12/13/2024 12:42 PM EST Pt refused to schedule all of the below -Pl jeffrey ECHO MALIKA and cardiology appt if possible on 12/16/24 at [place] [facility] GI appt [facility] appt EEG and neurology Pt stated she wants to see how her apt in [place] goes first then she will schedule the above apts documented in this encounter Plan of Treatment Upcoming Encounters Date Type Department Care Team (Late st Contact Info) Description 12/15/2024 9:15 AM EST Office Visit Ophthalmology, [facility] [place] [address] Ryland Harrison DO 132 [facility] [place] [address] 12/16/2024 2:00 PM EST Appointment Vascular Lab [facility] [address] [place] [address] 12/16/2024 3:00 PM EST Office Visit Vascular Surg [facility] [address] [place] [address] Servando Rese MD [address] [place] [address] 01/03/2025 1:00 PM EDT [facility] [address] [facility] [place] [address] 01/12/2025 11:10 AM EDT Office Visit Vascular Surgery, [facility] [address] [facility] [place] [address] Servando Rees MD [address] [place] [address] 02/22/2025 1:00 PM EDT Office Visit General Internal Medicine [facility] 200 [place] [address] Kia Goetz MD 200 [place] [address] Health Maintenance Due Date Last Done Comments DISCUSS TOBACCO CESSATION (REFER TO SMARTSET #3293) 1945 Alpha-1 Antitrypsin 1965 Hepatitis C Screening [...] filedocumented as of this encounter Care Teams Mask Inspector Relationship Specialty Start Date End Date Kia Goetz MD 200 [facility] [place] [address] PCP - General Internal Medicine 10/08/21 documented as of this encounter
--- OUTSIDE RECORDS SUMMARY | 2025-01-31 06:37 | External Medical Summary | Summary of Care ---
Author Name Unknown Organization [facility] Address [address] [facility] [place] [address] Phone [phone] Care Team Providers Care Toxicologist Name Role Phone Kia Goetz MD Primary Care Provider [phone] Reason for Visit * Reason Comments Eye Problem Encounter Details Date Type Department Care Team (Late st Contact Info) Description 12/08/2024 12:45 PM EST Office Visit Ophthalmology, [facility] [address] [facility] [place] [address] Ryland Harrison DO [address] [place] [address] Neovascular glaucoma of both eyes, severe stage*; [...] MG Oral TabletIndications: Coronary artery disease involving umkumiut coronary artery of umkumiut heart without angina pectoris,Hx of CABG,S/P carotid [...] Tablet Sublingual (Nitrostat)Indicat ions:Coronary artery disease involving umkumiut coronary artery of umkumiut heart without angina pectoris Place 1 Tablet under the tongue as needed for Pain, Chest. May repeat 3 times. If chest pain continues, call 911. 25 Tablet 08/11/20 23 Active Vitamin D-3 25 MCG (1000 UT) Oral CapsuleIndications :Longitudinal ridging of nail,Vitamin D insufficiency 1 capsule daily--inc 02/10/2024 02/10/20 24 Active Ezetimibe 10 MG Oral Tablet (Zetia)Indications :Coronary artery disease involving umkumiut coronary artery of umkumiut heart without angina pectoris,Dyslipide bryanna, goal LDL below 70 TAKE 1 TABLET BY MOUTH EVERY DAY IN THE MORNING 90 Tablet 3 03/10/20 24 Active Metoprolol Succinate ER 25 MG Oral Tablet Extended Release 24 Hour (toPROL XL)Indications:Cor onary artery disease involving umkumiut coronary artery of umkumiut heart without angina pectoris TAKE 1 TABLET [...] s:COPD, group A, by GOLD 2017 classification ([facility]),Tobacco use disorder Inhale 2 Puffs by [...] Information Patient not taking.Reported on 08/11/2024 Reyna [place] 100-62.5-25 MCG/ACT Aerosol Powder Breath ActivatedIndicatio ns:Tobacco [...] Oral Tablet (Lipitor)Indicatio ns:Coronary artery disease involving umkumiut coronary artery of umkumiut heart without angina pectoris,Dyslipide bryanna, goal LDL [...] RT arm Coronary artery disease invo lving umkumiut coronary artery of umkumiut heart without angina pectoris 10/08/2021 Hx of [...] (Moderna) 01/23/2021,12/28/2020 Pneumococcal Conjugate Vacci ne, 20-valent ([id number]) 09/02/2022 Pneumococcal Polysaccharide PPV23 (Pneumovax) 09/01/2017 Seasonal [...] Ryland Harrison, - 12/08/2024 12:45 PM EST [facility] [place] Nursing Notes: Susan [...] Iris: regressed NVID OD; NVI OS Lens: PCIOL OU GONIOSCOPY: 12/06/2024 OD: 75% closed w/ [...] -known signficant carotid dz; s/p CEE in [place] 2015 -was scheduled to have sx in [...] OD -related to known carotid dz 3. Pseudophakia OU -stable 4. MDF OU -monitor F/u [...] AM EST Office Visit General Internal Medicine [facility] [address] [facility] [place] [address] Kia Goetz MD 200 [place] [address] 12/15/2024 9:15 AM EST Office Visit Ophthalmology, [facility] [address] [place] [address] Ryland Harrison DO 132 [place] [address] 12/16/2024 2:00 PM EST Appointment Vascular Lab [place] [address] [place] [address] 12/16/2024 3:00 PM EST Office Visit Vascular Surg [place] [address] [place] [address] Servando Rees MD [address] [place] [address] 01/03/2025 1:00 PM EDT Imaging Vascular Lab, [facility]nd [facility] [address] [place] [address] 01/12/2025 11:10 AM EDT Office Visit Vascular Surgery, [facility] [address] [place] [address] Servando Rees MD [address] [place] [address] Health Maintenance Due Date Last Done Comments DISCUSS TOBACCO CESSATION (REFER TO SMARTSET #1718) 1945 Alpha-1 Antitrypsin 1965 Hepatitis C Screening [...] hemorrhage of right eye (HCC) Vitreous hemorrhage documented in this encounter Care Teams Toxicologist Relationship Specialty Start Date End Date Kia Goetz MD 200 [facility] [place] [address] PCP - General Internal Medicine 10/08/21 documented as of this encounter
--- OUTSIDE RECORDS SUMMARY | 2025-01-31 06:37 | External Medical Summary | Summary of Care ---
Author Name Unknown Organization [facility] Address [address] [place] [address] Phone [phone] Care Team Providers Care Armature Varnisher Name Role Phone Kia Goetz MD Primary Care Provider [phone] Reason for Visit * Reason Onset Date Comments Vascular Study 12/07/2024 Appointment 12/07/2024 Encounter Details Date Type Department Care Team (Late st Contact Info) Description 12/07/2024 Telephone Vascular Surg [facility] [address] [place] [address] Gregg Fonseca PA-C [address] [place] [address] Vascular Study; Appointment Allergies Active [...] MG Oral TabletIndications: Coronary artery disease involving swinomish coronary artery of swinomish heart without angina pectoris,Hx of CABG,S/P carotid [...] Tablet Sublingual (Nitrostat)Indicat ions:Coronary artery disease involving swinomish coronary artery of swinomish heart without angina pectoris Place 1 Tablet under the tongue as needed for Pain, Chest. May repeat 3 times. If chest pain continues, call 911. 25 Tablet 08/11/20 23 Active Vitamin D-3 25 MCG (1000 UT) Oral CapsuleIndications :Longitudinal ridging of nail,Vitamin D insufficiency 1 capsule daily--inc 02/10/2024 02/10/20 24 Active Ezetimibe 10 MG Oral Tablet (Zetia)Indications :Coronary artery disease involving swinomish coronary artery of swinomish heart without angina pectoris,Dyslipide bryanna, goal LDL below 70 TAKE 1 TABLET BY MOUTH EVERY DAY IN THE MORNING 90 Tablet 3 03/10/20 24 Active Metoprolol Succinate ER 25 MG Oral Tablet Extended Release 24 Hour (toPROL XL)Indications:Cor onary artery disease involving swinomish coronary artery of swinomish heart without angina pectoris TAKE 1 TABLET [...] group A, by GOLD 2017 classification ([facility]),Abnormal lung sounds INHALE 1 PUFF BY MOUTH [...] Oral Tablet (Lipitor)Indicatio ns:Coronary artery disease involving swinomish coronary artery of swinomish heart without angina pectoris,Dyslipide bryanna, goal LDL [...] RT arm Coronary artery disease invo lving swinomish coronary artery of swinomish heart without angina pectoris 10/08/2021 Hx of [...] (Moderna) 01/23/2021,12/28/2020 Pneumococcal Conjugate Vacci ne, 20-valent ([id number]) 09/02/2022 Pneumococcal Polysaccharide PPV23 (Pneumovax) 09/01/2017 Seasonal [...] offered her an appt this week in [place] and she has declined. She states that [...] if [place] [facility] [place] MALIKA Bello. We can either [...] Adair Pope has appt with us at [facility] December but eye doctor thinks she should consider redo cea sooner than latter Patient cancelled surgery before due to illness of Can we see tomorrow with repeat carotid duplex today or tomorrow? Thanks Roman Can we get pt in for F/U carotid duplex, anytime BTW now and next Wed 01/12 @ [facility]? (Updated order for duplex signed) In addition, patient needs F/U appointment @ [facility] on 01/12 but after 10 AM because pt is having eye injection @ [facility] by Ophthalmology @ 915 AM Patient is aware for need for updated duplex and visit. Thank you ALEKSEY documented in this encounter Plan of Treatment Upcoming Encounters Date Type Department Care Team (Late st Contact Info) Description 12/13/2024 11:20 AM EST Office Visit General Internal Medicine [facility] 200 [facility] [place] [facility] [address] Kia Goetz MD 200 [facility] [place] [address] 12/15/2024 9:15 AM EST Office Visit Ophthalmology, [facility] [address] [place] [address] Ryland Harrison DO [address] [place] [address] 12/16/2024 1:45 PM EST Office Visit Vascular Surg [address] [place] [address] Servando Rees MD [address] [place] [address] 01/03/2025 1:00 PM EDT Imaging [facility] 132 [facility] [place] [address] 01/12/2025 11:10 AM EDT Office Visit Vascular Surgery, [facility] [address] [facility] [place] [address] Servando Rees MD [address] [place] [address] Scheduled Orders Name Type Priority Associated Diagnoses Orde r Schedule VASC DUPLEX CAROTID BILAT Medical Imaging Routine S/P carotid endarterectomy Symptomatic stenosis of right carotid artery without infarction Ordered: 12/07/2024 Health Maintenance Due Date Last Done Comments DISCUSS TOBACCO CESSATION (REFER TO SMARTSET #2186) 1945 Alpha-1 Antitrypsin 1965 Hepatitis C Screening [...] FOR COPD 07/05/2025 07/05/2024 GFR 08/12/2025 08/12/2024, 07/10/2023, 04/01/2024, Additional history exists HbA1c 08/12/2025 08/12/2024, [...] infarction documented in this encounter Care Teams Armature Varnisher Relationship Specialty Start Date End Date Kia Goetz MD 200 [place] [address] PCP - General Internal Medicine 10/08/21 documented as of this encounter
--- OUTSIDE RECORDS SUMMARY | 2025-01-31 06:37 | External Medical Summary | Summary of Care ---
Author Name Unknown Organization [facility] Address [address] [facility] [place] [address] Phone [phone] Care Team Providers Care Wrapper Layer Name Role Phone Kia Goetz MD Primary Care Provider [phone] Reason for Visit * Reason Onset Date Comments Precert Not Needed 12/06/2024 Encounter Details Date Type Department Care Team (Late st Contact Info) Description 12/06/2024 Telephone Ophthalmology, [facility] [address] [place] [address] Ryland Harrison DO [address] [place] [address] Precert Not Needed Allergies Active Allergy Reactions Criticality Noted Date [...] MG Oral TabletIndications: 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 May repeat 3 times. If chest pain continues, call 911. 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,Dyslipide bryanna, goal LDL below 70 TAKE 1 TABLET BY MOUTH EVERY DAY IN THE MORNING 90 Tablet 3 03/10/20 24 Active Metoprolol Succinate ER 25 MG Oral Tablet Extended Release 24 Hour (toPROL XL)Indications:Cor onary artery disease involving wainwright coronary artery of wainwright heart without angina pectoris TAKE 1 TABLET [...] A, by GOLD 2017 classification ([facility]),Abnormal lung sounds INHALE 1 PUFF [...] Oral Tablet (Lipitor)Indicatio ns:Coronary artery disease involving wainwright coronary artery of wainwright heart without angina pectoris,Dyslipide bryanna, goal LDL [...] RT arm Coronary artery disease invo lving wainwright coronary artery of wainwright heart without angina pectoris 10/08/2021 Hx of [...] (Moderna) 01/23/2021,12/28/2020 Pneumococcal Conjugate Vacci ne, 20-valent ([id number]) 09/02/2022 Pneumococcal Polysaccharide PPV23 (Pneumovax) 09/01/2017 Seasonal [...] Medicare Provider: Ryland Harrison DO Tax ID: [id number] Office Address: [address] [place] [address] [place] [address] Office Office Drug Name/CPT: Avastin ICD 10: H35.059 Dosage: 2.75 mg Eye Treated: Right Frequency: Q 4-6 weeks Prior Eye medications received: None Specialty Pharmacy/Buy and bill? Office stock documented in this encounter Plan of Treatment Upcoming Encounters Date Type Department Care Team (Late st Contact Info) Description 12/13/2024 11:20 AM EST Office Visit General Internal Medicine [facility] [address] [facility] [place] [address] [facility] MD [facility] [address] 12/15/2024 9:15 AM EST Office Visit Ophthalmology, [facility] [address] [facility] [place] [address] Ryland Harrison DO 132 [facility] [place] [address] 01/03/2025 1:00 PM EDT [facility] [address] [place] [address] 01/12/2025 11:10 AM EDT Office Visit Vascular Surgery, [address] [place] [address] Servando Rees MD [address] [place] [address] Health Maintenance Due Date Last Done Comments DISCUSS TOBACCO CESSATION (REFER TO SMARTSET #[id number]) 1945 Alpha-1 Antitrypsin 1965 Hepatitis C Screening [...] filedocumented as of this encounter Care Teams Wrapper Layer Relationship Specialty Start Date End Date Kia Goetz MD [address] [place] [address] PCP - General Internal Medicine 10/08/21 documented as of this encounter
--- OUTSIDE RECORDS SUMMARY | 2025-01-31 06:37 | External Medical Summary | Summary of Care ---
Author Name Unknown Organization [facility] Address [address] [place] [address] Phone [phone] Care Team Providers Care Retail Event Coordinator Name Role Phone Kia Goetz MD Primary Care Provider [phone] Encounter Details Date Type Department Care Team (Late st Contact Info) Description 11/11/2024 Population Health External Data Unspecified Department Allergies Active Allergy Reactions Criticality Noted Date Comments Mometasone Furoate 01/08/2022 Blisters sides of mouth Duloxetine Hcl Low 10/08/2021 Not allergic, just doesn't work Levofloxacin High 10/08/2021 Becomes deathly ill documented as of this encounter (statuses as of 11/11/2024) Medications ZyrTEC Allergy 10 MG Oral Capsule (Cetirizine HCl) Take 1 Capsule by mouth in the morning. Active Famotidine 20 MG Oral Tablet (Pepcid) Take 1 Tablet by mouth 2 times a day as needed for Heartburn. -uses 2/wk 10/08/20 21 Active Aspirin 325 MG Oral TabletIndications: Coronary artery disease involving campo coronary artery of campo heart without angina pectoris,Hx of CABG,S/P carotid [...] Tablet Sublingual (Nitrostat)Indicat ions:Coronary artery disease involving campo coronary artery of campo heart without angina pectoris Place 1 Tablet under the tongue as needed for Pain, Chest. May repeat 3 times. If chest pain continues, call 911. 25 Tablet 08/11/20 23 Active Vitamin D-3 25 MCG (1000 UT) Oral CapsuleIndications :Longitudinal ridging of nail,Vitamin D insufficiency 1 capsule daily--inc 02/10/2024 02/10/20 24 Active Ezetimibe 10 MG Oral Tablet (Zetia)Indications :Coronary artery disease involving campo coronary artery of campo heart without angina pectoris,Dyslipide bryanna, goal LDL below 70 TAKE 1 TABLET BY MOUTH EVERY DAY IN THE MORNING 90 Tablet 3 03/10/20 24 Active Metoprolol Succinate ER 25 MG Oral Tablet Extended Release 24 Hour (toPROL XL)Indications:Cor onary artery disease involving campo coronary artery of campo heart without angina pectoris TAKE 1 TABLET [...] s:COPD, group A, by GOLD 2017 classification ([facility] [...] disorder,COPD, group A, by GOLD 2017 classification ([facility]),Abnormal lung sounds INHALE 1 PUFF [...] Oral Tablet (Lipitor)Indicatio ns:Coronary artery disease involving campo coronary artery of campo heart without angina pectoris,Dyslipide bryanna, goal LDL below 70 TAKE 1 TABLET BY MOUTH EVERY DAY IN THE MORNING 90 Tablet 3 09/15/20 24 Active LORazepam 0.5 MG Oral Tablet (Ativan)Indication s:SIXTO (generalized anxiety disorder),Symptoma tic carotid artery narrowing without infarction, right,S/P carotid endarterectomy TAKE 1/2 TAB BY MOUTH IN THE MORNING AND EVENING FOR ANXIETY 30 Tablet 10/19/20 24 Active documented as of this encounter (statuses as of 11/11/2024) Active Problems Problem Noted Date Diagnosed Date [...] RT arm Coronary artery disease invo lving campo coronary artery of campo heart without angina pectoris 10/08/2021 Hx of [...] as of this encounter (statuses as of 11/11/2024) Resolved Problems Problem Noted Date Diagnosed Date Resolved Date Bilateral carotid artery stenosis 10/22/2021 08/11/2023 COPD, severity to be determined 10/08/2021 01/01/2023 Overview: Per COPD GOLD Classification documented as of this encounter (statuses as of 11/11/2024) Immunizations Name Administration Dates Next Due COVID-19 mRNA, LNP-s, No Pre serve, 2-Dose Series (Moderna) 01/23/2021,12/28/2020 Pneumococcal Conjugate Vacci ne, 20-valent ([id number]) 09/02/2022 Pneumococcal Polysaccharide PPV23 (Pneumovax) 09/01/2017 Seasonal [...] Recorded PHQ Adult Total Score 0 08/11/2023 Utilities Answer Date Recorded Do you have trouble paying y our heating, water, or electric bill? (Adult - for ages 18 years and over) Not on file 04/06/2024 Is your family able to pay t he heat, water, or electric bill? (Household - for ages 0-17 years) Not on file 04/06/2024 Does your family have access to good internet? (Household - for ages 0-17 years) Not on file 04/06/2024 Social Connections Answer Date Recorded How often do you feel lonely or isolated from those around you? (Adult - for ages 18 years and over) Not on file 04/06/2024 Comments No Sex and Gender Information Value Date Recorded Sex Assigned at Not on file Legal Sex Female 1:53 PM EST Gender Identity Not on file Sexual Orientation Not on file documented as of this encounter Plan of Treatment Upcoming Encounters Date Type Department Care Team (Late st Contact Info) Description 01/03/2025 1:00 PM EDT Imaging Vascular Lab, [facility] 2nd [facility] [address] [facility] [place] [address] 01/12/2025 11:10 AM EDT Office Visit Vascular Surgery, [facility] [address] [facility] [place] [address] [facility]es [facility] [address] [facility] [id number] Health Maintenance Due Date Last Done Comments DISCUSS TOBACCO CESSATION (REFER TO SMARTSET #4124) 1945 Alpha-1 Antitrypsin 1965 Hepatitis C Screening 1965 DTap/Tdap Vaccines (1 - Tdap) 1966 Lung Cancer Screening 1997 Zoster Vaccines (1 of 2) 1997 Adult Wellness Visit 2013 DXA Scan [...] filedocumented as of this encounter Care Teams Retail Event Coordinator Relationship Specialty Start Date End Date Kia Goetz MD [address] [place] [address] PCP - General Internal Medicine 10/08/21 documented as of this encounter
--- OUTSIDE RECORDS SUMMARY | 2025-01-31 06:37 | External Medical Summary | Summary of Care ---
Author Name Unknown Organization [facility] Address [address] [facility] [place] [address] Phone [phone] Care Team Providers Care Caterpillar Operator Name Role Phone Kia Goetz MD Primary Care Provider [phone] Reason for Visit * Reason Onset Date Comments Appointment 12/13/2024 Encounter Details Date Type Department Care Team (Late st Contact Info) Description 12/13/2024 Telephone General Internal Medicine [facility] [address] [facility] [place] [address] Kia Goetz MD [address] [facility] [address] Appointment Allergies Active Allergy Reactions Criticality Noted [...] MG Oral TabletIndications: Coronary artery disease involving [place] coronary artery of [place] heart without angina pectoris,Hx of CABG,S/P carotid [...] Tablet Sublingual (Nitrostat)Indicat ions:Coronary artery disease involving [place] coronary artery of [place] heart without angina pectoris Place 1 Tablet [...] Oral Tablet (Zetia)Indications :Coronary artery disease involving [place] coronary artery of [place] heart without angina pectoris,Dyslipide bryanna, goal LDL below 70 TAKE 1 TABLET BY MOUTH EVERY DAY IN THE MORNING 90 Tablet 3 03/10/20 24 Active Metoprolol Succinate ER 25 MG Oral Tablet Extended Release 24 Hour (toPROL XL)Indications:Cor onary artery disease involving [place] coronary artery of [place] heart without angina pectoris TAKE 1 TABLET [...] Oral Tablet (Lipitor)Indicatio ns:Coronary artery disease involving [place] coronary artery of [place] heart without angina pectoris,Dyslipide bryanna, goal LDL [...] disorder,COPD, group A, by GOLD 2017 classification ([facility]) Inhale 2 Puffs by mouth every 4 hours as needed for Wheezing. 18 g 1 12/13/19 25 Active Nicotine 14 MG/24HR Transdermal Patch 24 Hour (Nicoderm CQ)Indications:Ocu lar ischemic syndrome,Symptomat ic carotid artery narrowing without infarction, right,Tobacco use disorder,Coronary artery disease involving akhi[place] coronary artery of akhi[place] heart without angina pectoris,Hx of CABG Place 1 Patch over 24 hours topically on the skin in the morning. On upper body/outer arm, change once a day for two weeks.. 14 Patch 12/13/19 25 Active Nicotine 7 MG/24HR Transdermal Patch 24 Hour (Nicoderm CQ)Indications:Sym ptomatic carotid artery narrowing without infarction, right,Tobacco use disorder,Coronary artery disease involving akhi[place] coronary artery of akhi[place] heart without angina pectoris,Hx of CABG Place 1 Patch over 24 hours topically on the skin in the morning. On upper body/outer arm, change once a day for two weeks.. 14 Patch 12/13/19 25 Active Nicotine 21 MG/24HR Transdermal Patch 24 Hour (Nicoderm CQ)Indications:Sym ptomatic carotid artery narrowing without infarction, right,Tobacco use disorder,Coronary artery disease involving akhi[place] coronary artery of akhi[place] heart without angina pectoris,Hx of CABG Place [...] RT arm Coronary artery disease invo lving akhi[place] coronary artery of akhi[place] heart without angina pectoris 10/08/2021 Hx of [...] (Moderna) 01/23/2021,12/28/2020 Pneumococcal Conjugate Vacci ne, 20-valent ([id number]) 09/02/2022 Pneumococcal Polysaccharide PPV23 (Pneumovax) 09/01/2017 Seasonal [...] cardiology appt if possible on 12/16/24 at [place] [facility] GI appt -[facility] appt EEG and neurology Pt stated she wants to see how her apt in [place] goes first then she will schedule the above apts documented in this encounter Plan of Treatment Upcoming Encounters Date Type Department Care Team (Late st Contact Info) Description 12/15/2024 9:15 AM EST Office Visit Ophthalmology, [facility] [place] [address] Ryland Harrison DO 132 [facility] [place] [address] 12/16/2024 2:00 PM EST Appointment Vascular Lab [facility] [address] [place] [address] 12/16/2024 3:00 PM EST Office Visit Vascular Surg [facility] [address] [place] [address] Servando Rees MD [address] [place] [address] 01/03/2025 1:00 PM EDT [facility] [address] [facility] [place] [address] 01/12/2025 11:10 AM EDT Office Visit Vascular Surgery, [facility] [address] [facility] [place] [address] Servando Rees MD [address] [place] [address] 02/22/2025 1:00 PM EDT Office Visit General Internal Medicine [facility] [address] [facility] [place] [address] Kia Goetz MD [address] [facility] [place] [address] Health Maintenance Due Date Last Done Comments DISCUSS TOBACCO CESSATION (REFER TO SMARTSET #3298) 1945 Alpha-1 Antitrypsin 1965 Hepatitis C Screening [...] filedocumented as of this encounter Care Teams Caterpillar Operator Relationship Specialty Start Date End Date Kia Goetz MD [address] [facility] [place] [address] PCP - General Internal Medicine 10/08/21 documented as of this encounter
--- OUTSIDE RECORDS SUMMARY | 2025-01-31 06:37 | External Medical Summary | Summary of Care ---
Author Name Unknown Organization [facility] Address [address] [place] [address] Phone [phone] Care Team Providers Care Dog Track Kennel Manager Name Role Phone Kia Goetz MD Primary Care Provider [phone] Reason for Referral * Evaluate & Treat - Unlimited Visits (Within 10 days (routine)) - Authorized Specialty Diagnoses / Procedures Referred By Contac t Referred To Contact Psychology Diagnoses Adjustment disorder with mixed anxiety and depressed mood Grief reaction Kia Goetz MD [facility] [place] [address] Phone: tel: fax: Referral ID Status Reason Start Date Expiration Date Visits Requested Visits Authorized [id number] Authorized Specialty Services Required 12/13/[phone] Question Answer Referral Priority Within 10 days (routine) Where should this appointment be scheduled? [facility] Is this referral for medication management? No Reason for Referral: Depression/Anxiety/Bipolar Specific Condition? Depression - grief reaction Reason for Visit * Reason Comments Follow Up Rescheduled from pre vious Encounter Details Date Type Department Care Team (Latest Contact Info) Description 12/13/2024 11:20 AM EST Office Visit General Internal [place] [address] [address] [address] Kia Goetz MD [address] [place] [address] Ocular ischemic syndrome*; Neovascular glaucoma of both eyes, severe stage; Symptomatic carotid artery narrowing without infarction, right; S/P carotid endarterectomy; Tobacco use disorder; Coronary artery disease involving [place] coronary artery of [place] heart without angina pectoris; Dyslipidemia, goal LDL below 70; HTN, goal below 140/80; Shaking; Abnormal involuntary movement; SIXTO (generalized anxiety disorder); COPD, group A, by GOLD 2017 classification (HCC); Paroxysmal SVT (supraventricular tachycardia) ([facility]); Paroxysmal VT (HCC); Elevated serum alkaline phosphatase level; Adjustment disorder with mixed anxiety and depressed mood; Grief reaction; Hair loss; Vitamin D insufficiency; Hx of CABG Allergies Active Allergy Reactions Criticality Noted Date Comments Mometasone Furoate 01/08/2022 Blisters sides of mouth Duloxetine Hcl Low 10/08/2021 Not allergic, just doesn't work Levofloxacin High 10/08/2021 Becomes deathly ill documented as of this encounter (statuses as of 12/14/2024) Medications ZyrTEC Allergy 10 MG Oral Capsule [...] 1 capsule daily--inc 02/10/2024 02/10/20 24 Active Additional Information Patient not taking.Reported [...] MORNING. -FROM 08/11/2023. 60 Each 5 07/06/20 Active Additional Information Patient not taking.Reported on [...] disorder,COPD, group A, by GOLD 2017 classification ([facility]) Inhale 2 Puffs by mouth every 4 [...] 6 weeks.. 42 Patch 12/13/19 25 Active Ventolin HFA 108 (90 Base) MCG/ACT Inhalation Aerosol SolutionIndication s:COPD, group A, by GOLD 2017 classification ([facility]),Tobacco use disorder Inhale 2 Puffs by mouth every 4 hours as needed for Wheezing. 18 g 1 05/27/20 24 025 Discontin ued(Refil l) HYDROcodone-Acetam inophen 5-325 MG Oral TabletIndications: S/P wisdom tooth extraction,Pain in gums Take 1 Tablet by mouth every 8 hours as needed for Pain, Moderate (tooth pain sp extraction 05/28/24). 21 Tablet 06/07/20 24 025 Discontin ued(Medic ation List Clean Up) Mirtazapine 7.5 MG Oral Tablet (Remeron)Indicatio ns:Adjustment disorder with depressed mood,Caregiver stress,Adjustment disorder with mixed anxiety and depressed mood,Loss of appetite for more than 2 weeks Take 1 Tablet by mouth at bedtime. 30 Tablet 08/11/20 24 025 Discontin ued(Refil l) Hospital, Clinic, or Other Facility Administered Medication Ordered Dose Route Frequency Start Date End Date Status bevaCIZumab (Avastin) inj 1.25 mgIndications:Ocular ischemic syndrome,Retinal neovascularization of right eye 1.25 mg IZ PRN 12/06/2024 12/06/2025 Active ROPivacaine (Naropin) inj 1.5 mgIndications:Ocular ischemic syndrome,Retinal neovascularization of right eye 1.5 mg IJ PRN 12/06/2024 12/06/2025 Active documented as of this encounter (statuses as of 12/14/2024) Active Problems Problem Noted Date Diagnosed Date [...] as of this encounter (statuses as of 12/14/2024) Resolved Problems Problem Noted Date Diagnosed Date Resolved Date Caregiver stress 06/22/2024 12/13/2024 Bilateral carotid artery stenosis 10/22/2021 08/11/2023 COPD, severity to be determined 10/08/2021 01/01/2023 Overview: Per COPD GOLD Classification documented as of this encounter (statuses as of 12/14/2024) Immunizations Name Administration Dates Next Due COVID-19 mRNA, LNP-s, No Pre serve, 2-Dose Series (Moderna) 01/23/2021,12/28/2020 Pneumococcal Conjugate Vacci ne, 20-valent ([place]14) 09/02/2022 Pneumococcal Polysaccharide PPV23 (Pneumovax) 09/01/2017 Seasonal [...] Sign Reading Time Taken Comments Blood Pressure 110/60 12/13/2024 11:31 AM EST Pulse 68 12/13/2024 11:31 AM EST Temperature 36.4 °C (97.5 °F) 12/13/2024 1 1:31 AM EST Respiratory Rate - - Oxygen Saturation 97% 12/13/2024 11: 31 AM EST Inhaled Oxygen Concentration - - Weight 60.7 kg (133 lb 14.4 oz) 025 11:31 AM EST Height 152.4 cm (5') 12/13/2024 11:31 AM EST Body Mass Index 26.15 12/13/2024 11:31 AM EST documented in this encounter Progress Notes * Kia Goetz MD - 12/13/2024 11:46 AM EST SUBJECTIVE: Clotilde Pope is a 78 year old female. Chief Complaint Patient presents with Follow Up Rescheduled from previous HPI: Patient presents today for 3 mth f/u BP Readings from Last 8 Encounters: 12/13/24 110/60 08/11/24 102/72 07/05/24 74/62 06/22/24 122/58 06/07/24 94/60 05/19/24 92/60 04/12/24 100/74 04/12/24 110/72 Wt Readings from Last 10 Encounters: 12/13/24 133 lb 14.4 oz (60.7 kg) 08/11/24 132 lb 1.6 oz (59.9 kg) 07/05/24 135 lb 6.4 oz (61.4 kg) 06/22/24 135 lb 14.4 oz (61.6 kg) 06/07/24 136 lb 4.8 oz (61.8 kg) 05/19/24 138 lb 3.2 oz (62.7 kg) 04/12/24 141 lb 1.6 oz (64 kg) 04/12/24 140 lb 12.8 oz (63.9 kg) 04/01/24 141 lb 1.6 oz (64 kg) 02/10/24 142 lb 8 oz (64.6 kg) PMH: HTN,CAD h/o AMI and CABG 04/2015; dyslipidemia LDL goal <70, PAD with Rt CEA 07/2016 ; continued tobacco use disorder was smoking 1-2 packs a day for of 55 years and decreased to 3/4 ppd since 2014; with chantix had bad dreams, intolerant wellbutrin, not ready to quit smoking, COPD severity TBD, seasonal allergies , h/o ocular migraine, anxiety disorder, failed multiple medications and currently on benzodiazepine., adjustment disorder with depressed mood 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 Zyrtec daily am, vitamin-D 1000 un /d 02/10, Co Q10, Pepcid about twice a week Has been intolerant off or did not work-Lexapro, Cymbalta, Wellbutrin, hydrocodone, oxycodone, withtramadol had severe nausea, vomiting. lorazepam 1 mg half tablet in am prn now, 2nd 10/21 PRN. --has Rx from prior PCP- last filled 10/09/2021- brought bottle with her 03/10/202308/11-States she feels anxious at times especially on waking up and feels she is in a knot. Requesting lorazepam few tablets To take only as needed see above prescription. She does not want to take something on a daily basis, declines Effexor and BuSpar. Advised that if she is needing more of the Ativan then we will need to consider adding above medications. 02/10--mood stable 06/12--see hpi 06/22/2024--with chantix had bad dreams, discussed wellbutrin Now smoking 16 c/d Advised to set a quit date for smoking and start Medication a week earlier. Also to register for smoking cessation classes. 08/11/24-took the medication only for one-month still smoking half pack of cigarettes a day complains of shaking of her hands and legs only with standing, stops when she holds onto something, no incontinence or tongue biting or altered consciousness Louise canseco-10/22/21-EKG NSR , infarct age und>had f/u 04/24/22 ECHO ordered 11/10 -05/10-normal LV systolic function, no valve pathology, trivial pericardial effusion, repeat echo echo in 6-8 weeks----had 07/11--Stable, trivial pericardial effusion. No med changes Cardiology appointment 10/2023 EKG-NSR with prior anteroseptal infarct, unchanged from prior.--fu 1 yr PAD: 10/15/21-- Carotid doppler- <50% TRACY and 50-69% LICA St may be greater than reported due to heavily calcified plaque., possibility of stenosis left UE artery. DrElmore 12/05/21--S/p right carotid endarterectomy which is widely patent;Marked bilateral LE arterial occlusive disease with claudication;Left subclavian arterial occlusive disese PLAN:F/u one year with carotid duplex and wilmer at [facility] --has fu 04/02/23-pt cx appt 04/01/24-Patient presents today for acute appointment after her eye exam 03/26/2024. Had complained off a fog appearing of her vision in the right eye in the morning.. She was noted to have scattered mid peripheral dot blot hemorrhages right eye; Right retinal ischemia suspected history of right carotid endarterectomy in 2015 Denies any decrease of vision in anyone particular field, no symptoms of jaw claudication, no recent increase in hip or shoulder pain or stiffness. No unilateral weakness or numbness of extremities. No dysphagia dizziness or difficulty with speech. Blood pressure slightly low today but historically normal. 04/01/24 --EKG-NSR at 63 bpm, anteroseptal changes similar to prior EKG from 11/08/2023, QTc 411 ms 04/01/24--nml ESR,CRP,cr strongly advised smoking cessation. Currently on aspirin 325 mg daily, consider adding Plavix and decreasing aspirin to 81 mg daily -also schedule blood pressure check on 04/05/24 - if remains low consider decreasing dose of ramipril to 2.5 mg. 04/01/24-MRI brain--no acute abnormality, changes suggestive of chronic microvascular ischemia. 04/05/24-Carotid Doppler-h/o Rt CEA, <50% stenosis TRACY, degree of stenosis maybe high due to heavily calcified plaque, left carotid iotkxu-84-62% stenosis, retrograde flow in the left vertebral artery may represent proximal stenosis, has known left subclavian stenosis per last vas notes >MCO-ppbcm-nfajyejy arterial occlusive disease, left-mild occlusive disease 04/05/24- CTA head/neck-->no acute findings, intracranial atherosclerotic disease, moderate stenosis of 1 segment left vertebral artery, ckfq-sa-woyewvrg narrowing right vertebral artery, small outpouching 2-3 mm V4 segment right vertebral artery suspicious for aneurysm, vascular Neurosurgery consultation is advised. Wterpaub-rc-ouzzyn stenosis proximal left common carotid artery, severe stenosis of the right common carotid artery, occlusion of the proximal left subclavian artery(known) with possible subclavian steal - no pain/weakness in her left arm -eval [facility] Dr. Rees 04/12/24 > right common carotid to right internal carotid bypass graft to replace the high grade stenosis and treat the aneurysmal segment at the same time., had f/u May 19/2024, saw neurosurgery 04/12/24 ;neuro optho- 04/15/24 -surgery was scheduled 05/26/2024, now postponed to 2 weeks after she is done with any antibiotics for dental inection, now sp extraction 05/28/24--see hpi reg pain; the location and suspected morphologythe aneurysm would favor further workup with a DC 8 but given her age and extensive arthroscleroticdisease they recommended watchful waiting with a CTA head follow-up in 1 year and only then consider DCA--Neuro-Ophthalmology recommended magnesium 400-600 mg per day as it may help with visual disturbances. 06/07/24 States was having a lot of pain in her right lower tooth 04/15/2024, called her regular dentist and got an appointment on 04/20/2024 and given antibiotics amoxicillin and was advised she would need to see an oral surgeon for tooth extraction, could not get until June, saw her other dentist Dr. Hermosillo on 04/26/2024 and they expedited the appointment, saw oral surgeon 05/20/2024 and had right lower molar tooth removed 05/28/2024 with a follow-up 06/02/2024 due to persistent pain and was givenantibiotics again-amoxicillin. States her tooth is hurting so much that she is crying every day, very tearful in the office, has been taking aspirin about 6 day and Tylenol in between, cool compress does seem to help somewhat, states they would not give her any stronger pain medications due to her medical history. She did call vascular surgeon as she was scheduled for carotid endarterectomy 05/26/2024 and was canceled and now postponed and was told to call them once she is off antibiotics for 2 weeks Had been anxious relating to her carotid surgery and had asked for help with her anxiety. Was on Ativan and we advised her to take half tablet twice daily, states she got 30 half tablets on 05/10/2024nd pharmacy told her she could not fill it till 06/10/2024 the prescription was done 05/27/2024. Patient verify with pharmacy regarding the amount she received in April. Not been eating well, lost 5 lb, blood pressure also noted to be lower today. Denies any dizziness or generalized weakness Continues to smoke, which Chantix in the past she had side effects of worsening depression, discussed Wellbutrin she would like to hold off until her tooth issue is resolved Allergy list updated--C/o constipation on narcotics-HC,OC, with tramadol-Nausea also -willing to try low dose of hydrocodone, discussed side effects of sedation and not to take at the same time as the Ativan. -trial of low-dose hydrocodone up to 3 times a day as needed for tooth pain, has appointment with oral surgeon 06/08/2024 and they are to let her know if she will need any additional antibiotics or repeat x-rays. 06/22/2024--had follow-up appointment with dentist, area on the right mandibular was cleaned and flushed, was given a clearance to have carotid surgery and has been scheduled for surgery on 07/19/2024. Had transient numbness of her rt thumb, left 2nd and 3rd fingers and left lower lip which has resolved Used 5.5 tabs HC ---ch PDMP-filled prescription for Ativan and HC 06/07/24 -Strongly advised smoking cessation,, discussed role of Wellbutrin to help with smoking cessation and also help with her mood, she is willing to give it a try -blood pressure stable after decreasing ramipril to 2.5 mg. Defers follow-up with GI or scheduling ultrasound right upper quadrant today 08/11/2024--seen in clinic 07/05/2024 for evaluation of dizziness/lightheadedness, they discontinuedAldactone. 7 day Zio patch results. -Underlying rhythm sinus. Did have short run of V-tach which lasted 6 beats. Did have short runs of SVT the longest lasting 7 beats. Unsure if SVT would explain the episodes she was noting. She should follow-up as scheduled in office to discuss possible Cardiology referral Ventricular Bigeminy and Trigeminy were present. No patient marker or diary entries were submitted ---Recently her had GI bleeding, was diagnosed with stomach cancer, C diff colitis, was at [facility] for rehab, back home now, f/u oncologist.--- She had to cancel her carotid surgery 07/19/24 , message was sent to vascular who advised her to keep scheduled follow up in December 2024 12/13/2024--- after being on hospice at home 11/10/2024.--condolences offered. Still in the grieving process, is requesting psychology referral as her son felt that it was beneficialfor him. She also has chronic anxiety, Currently using Ativan twice daily, never started the Remeron that was prescribed for depression and decreased appetite, willing to try it She saw her oil inspector Dr. Pope earlier this month for sx of loss of vision in the horizontal area across the right field and only light perception in the upper and lower mackay. States she could see a blood vessel hanging in the middle of her right eye, - who referred her to Dr. Harrison -diagnosed with ocular ischemia, neovascular severe stage glaucomaboth eyes and started on eye drops, had a Avastin injection right eye and is scheduled to have 1 inthe left eye. -they had messaged vascular and is now scheduled for carotid Doppler with a follow up with Dr. Rees 12/16/2024. -continues to smoke at least 10-12 cigarettes a day, willing to try nicotine patches as she knows she will need to stop smoking when she is admitted for carotid surgery. -still has episodes of shaky spells with no control of movements 02/10/24 -A1c remains borderline high at 6 0.2%, LDL slightly above goal at 76, normal ALT, continuecurrent medications, follow strict low-cholesterol diet -elevated alk-phos.;Schedule ultrasound of the liver and await GI evaluation for the same. Had to cx appt [facility];-has GI appt now 06/02/24 08/12/2024-Lipids at goal, A1c lower at 5.8%(was not eating well recently), LFT with improved alk-phos, normal CBC, BMP, vitamin-D low borderline low at 26--make sure to continue vitamin-D 1000 unitsdaily Next labs 3mth Results for orders placed or performed in visit on 08/12/24 BASIC METABOLIC PANEL Result Value Ref Range BUN 11 6 - 20 mg/dL CREATININE 0.8 0.5 - 1.0 mg/dL EGFR 81 >=60 mL/min SODIUM 141 135 - 146 mmol/L POTASSIUM 4.3 3.5 - 5.1 mmol/L CHLORIDE 104 98 - 107 mmol/L CO2 24 22 - 32 mmol/L ANION GAP 13 7 - 15 mmol/L GLUCOSE 108 70 - 120 mg/dL CALCIUM 9.2 8.4 - 10.2 mg/dL HEPATIC FUNCTION PANEL Result Value Ref Range Albumin 4.2 3.8 - 5.0 g/dL AST 21 10 - 35 U/L Alkaline Phosphatase 141 (H) 35 - 130 U/L ALT 23 10 - 35 U/L Bilirubin, Total 0.4 <=1.2 mg/dL Bilirubin, Direct <0.2 0.0 - 0.3 mg/dL Protein 6.2 6.0 - 8.3 g/dL LIPID PANEL WITH DIRECT LDL IF TG IS HIGH Result Value Ref Range Triglycerides 125 <=174 mg/dL Cholesterol 117 <200 mg/dL HDL Cholesterol 43 (L) >49 mg/dL Non-HDL Cholesterol 74 <=159 mg/dL LDL Cholesterol 49 <=129 mg/dL HEMOGLOBIN A1C Result Value Ref Range Hemoglobin A1C 5.8 (H) 4.0 - 5.6 % Estimated Average Glucose 120 <126 mg/dL 25-HYDROXY VITAMIN D Result Value Ref Range 25-Hydroxy Vitamin D 26 >19 ng/mL CBC Result Value Ref Range WBC 8.10 4.00 - 10.80 K/uL RBC 4.63 3.85 - 5.15 M/uL HGB 14.2 12.0 - 15.3 g/dL HCT 44.2 36.0 - 45.2 % MCV 95.5 81.5 - 97.5 fL MCH 30.7 27.0 - 34.0 pg MCHC 32.1 32.0 - 36.0 g/dL RDW 14.3 11.5 - 15.5 % PLT 248 140 - 400 K/uL MPV 10.4 6.6 - 11.1 fL DIFFERENTIAL, AUTOMATED Result Value Ref Range WBC 8.10 4.00 - 10.80 K/uL Neutrophils % 66.1 40.0 - 75.0 % Lymphocytes % 23.7 18.0 - 42.0 % Monocytes % 8.0 1.0 - 11.0 % Eosinophils % 1.7 0.0 - 6.0 % Basophils % 0.5 0.0 - 2.0 % Absolute Neutrophils 5.35 1.80 - 7.70 K/uL Absolute Lymphocytes 1.92 1.00 - 4.80 K/ul Absolute Monocytes 0.65 0.00 - 1.10 K/uL Absolute Eosinophils 0.14 0.00 - 0.70 K/uL Absolute Basophils 0.04 0.00 - 0.20 K/uL Patient Active Problem List Diagnosis Coronary artery disease involving [place] coronary artery of [place] heart without angina pectoris Hx of CABG PVD (peripheral vascular disease) with claudication ([facility]) History of right-sided carotid endarterectomy Tobacco use disorder Lumbar degenerative disc disease History of lumbar laminectomy Dyslipidemia, goal LDL below 70 Seasonal allergic rhinitis due to pollen Adjustment disorder with mixed anxiety and depressed mood Prediabetes SIXTO (generalized anxiety disorder) Ocular migraine Occlusion of left subclavian artery COPD, group A, by GOLD 2017 classification ([facility]) Symptomatic stenosis of right carotid artery without infarction Caregiver stress Carotid artery aneurysm ([facility]) Stenosis of extracranial carotid artery, right HTN, goal below 140/80 Current Outpatient Medications Medication Sig Dispense Refill [...] pain continues, call 911. 25 Tablet 0 Ezetimibe 10 MG Oral Tablet (Zetia) TAKE 1 TABLET BY MOUTH EVERY DAY IN THE MORNING 90 Tablet 3 Metoprolol Succinate ER 25 MG Oral Tablet Extended Release 24 Hour (toPROL XL) TAKE 1 TABLET BY MOUTH EVERY DAY IN THE MORNING 90 Tablet 3 Atorvastatin Calcium 40 MG Oral Tablet (Lipitor) TAKE 1 TABLET BY MOUTH EVERY DAY IN THE MORNING 90Tablet 3 LORazepam 0.5 MG Oral Tablet (Ativan) TAKE 1/2 TAB BY MOUTH IN THE MORNING AND EVENING FOR ANXIETY 30 Tablet 0 Dorzolamide HCl-Timolol Mal 2-0.5 % Ophthalmic Solution (Cosopt Ocumeter Plus) INSTILL 1 DROP INTO THE RIGHT EYE 2 TIMES PER DAY Famotidine 20 MG Oral Tablet (Pepcid) Take 1 Tablet by mouth 2 times a day as needed for Heartburn.-uses 2/wk (Patient not taking: Reported on 12/13/2024) Vitamin D-3 25 MCG (1000 UT) Oral Capsule 1 capsule daily--inc 02/10/2024 (Patient not taking: Reported on 12/13/2024) Butalbital-Acetaminophen 50-325 MG Oral Tablet Take 1 Tablet by mouth daily as needed for Pain, Moderate or Pain, Severe (neck pain). (Patient not taking: Reported on 12/13/2024) 30 Tablet 0 Ventolin HFA 108 (90 Base) MCG/ACT Inhalation Aerosol Solution Inhale 2 Puffs by mouth every 4 hours as needed for Wheezing. (Patient not taking: Reported on 12/13/2024) 18 g 1 Trelegy Ellipta 100-62.5-25 MCG/ACT Aerosol Powder Breath Activated INHALE 1 PUFF BY MOUTH IN THE MORNING. -FROM 08/11/2023. (Patient not taking: Reported on 12/13/2024) 60 Each 5 Mirtazapine 7.5 MG Oral Tablet (Remeron) Take 1 Tablet by mouth at bedtime. (Patient not taking: Reported on 12/13/2024) 30 Tablet 0 Current Facility-Administered Medications Medication Dose Route Frequency Provider Last Rate Last Admin bevaCIZumab (Avastin) inj 1.25 mg 1.25 mg Intravitreal PRN 2.75 mg at 12/06/24 1424 ROPivacaine (Naropin) inj 1.5 mg 1.5 mg Injection PRN 1.5 mg at 12/06/24 1423 Review of patient's allergies indicates: Allergen Reactions Levaquin [Levofloxacin] Becomes deathly ill Asmanex (120 Metered Doses) [Mometasone Furoate] Blisters sides of mouth Cymbalta [Duloxetine Hcl] Not allergic, just doesn't work OBJECTIVE: BP 110/60 | Pulse 68 | Temp 97.5 °F (36.4 °C) (Tympanic) | Ht 5' (1.524 m) | Wt 133 lb 14.4 oz (60.7 kg) | SpO2 97% | BMI 26.15 kg/m² | BSA 1.6 m² PHYSICAL EXAM: General: alert, healthy, no distress, well nourished and well developed Head: Normocephalic, atraumatic Eye Exam: PERRLA, EOMI, Conjunctiva are pink and non-injected, sclera clear Oropharynx: no exudate and no erythema, sl narrow OP with sl large tongue Right mandibular 3rd molar status post extraction, with a mucosal defect Neck:scar RT, Sergey bruits, supple, no JVD, thyroid normal size, non-tender, without nodularity Lymph: No palpable lymphadenopathy. Heart: Regular rhythm and rate, 2/6 SM base and no gallops Lungs: sl coarse BS left LL, few basal rales does not clear cough , no rhonchi with forced expiration; cxr neg 08/11, refuses LDCT Abdomen: MLSUV scar, Soft, non-tender, normal bowel sounds, no masses or organomegaly, no bruits Extremities: no edema, no clubbing, no cyanosis. Neuro Exam: alert & oriented x 3 with fluent speech, no focal motor/sensory deficits, gait normal;Neg cerebellar signs ASSESSMENT/PLAN: Ocular ischemic syndrome (Primary) - Nicotine 14 MG/24HR Transdermal Patch 24 Hour (Nicoderm CQ); Place 1 Patch over 24 hours topically on the skin in the morning. On upper body/outer arm, change once a day for two weeks.. Neovascular glaucoma of both eyes, severe stage Symptomatic carotid artery narrowing without infarction, right - Nicotine 14 MG/24HR Transdermal Patch 24 Hour (Nicoderm CQ); Place 1 Patch over 24 hours topically on the skin in the morning. On upper body/outer arm, change once a day for two weeks.. - Nicotine 7 MG/24HR Transdermal Patch 24 Hour (Nicoderm CQ); Place 1 Patch over 24 hours topicallyon the skin in the morning. On upper body/outer arm, change once a day for two weeks.. - Nicotine 21 MG/24HR Transdermal Patch 24 Hour (Nicoderm CQ); Place 1 Patch over 24 hours topically on the skin in the morning. On upper body/upper arm, change once a day for 6 weeks.. S/P carotid endarterectomy Tobacco use disorder - Ventolin HFA 108 (90 Base) MCG/ACT Inhalation Aerosol Solution; Inhale 2 Puffs by mouth every 4 hours as needed for Wheezing. - Nicotine 14 MG/24HR Transdermal Patch 24 Hour (Nicoderm CQ); Place 1 Patch over 24 hours topically on the skin in the morning. On upper body/outer arm, change once a day for two weeks.. - Nicotine 7 MG/24HR Transdermal Patch 24 Hour (Nicoderm CQ); Place 1 Patch over 24 hours topicallyon the skin in the morning. On upper body/outer arm, change once a day for two weeks.. - Nicotine 21 MG/24HR Transdermal Patch 24 Hour (Nicoderm CQ); Place 1 Patch over 24 hours topically on the skin in the morning. On upper body/upper arm, change once a day for 6 weeks.. Coronary artery disease involving [place] coronary artery of [place] heart without angina pectoris - Nicotine 14 MG/24HR Transdermal Patch 24 Hour (Nicoderm CQ); Place 1 Patch over 24 hours topically on the skin in the morning. On upper body/outer arm, change once a day for two weeks.. - Nicotine 7 MG/24HR Transdermal Patch 24 Hour (Nicoderm CQ); Place 1 Patch over 24 hours topicallyon the skin in the morning. On upper body/outer arm, change once a day for two weeks.. - Nicotine 21 MG/24HR Transdermal Patch 24 Hour (Nicoderm CQ); Place 1 Patch over 24 hours topically on the skin in the morning. On upper body/upper arm, change once a day for 6 weeks.. Dyslipidemia, goal LDL below 70 HTN, goal below 140/80 Shaking Abnormal involuntary movement SIXTO (generalized anxiety disorder) COPD, group A, by GOLD 2017 classification ([facility]) - Ventolin HFA 108 (90 Base) MCG/ACT Inhalation Aerosol Solution; Inhale 2 Puffs by mouth every 4 hours as needed for Wheezing. Paroxysmal SVT (supraventricular tachycardia) (HCC) Paroxysmal VT (HCC) Elevated serum alkaline phosphatase level Adjustment disorder with mixed anxiety and depressed mood - ADULT/PEDS PSYCHOLOGY REFERRAL OP - Mirtazapine 7.5 MG Oral Tablet (Remeron); Take 1 Tablet by mouth at bedtime. St 12/13/2024 Grief reaction - ADULT/PEDS PSYCHOLOGY REFERRAL OP - Mirtazapine 7.5 MG Oral Tablet (Remeron); Take 1 Tablet by mouth at bedtime. St 12/13/2024 Hair loss Vitamin D insufficiency Hx of CABG - Nicotine 14 MG/24HR Transdermal Patch 24 Hour (Nicoderm CQ); Place 1 Patch over 24 hours topically on the skin in the morning. On upper body/outer arm, change once a day for two weeks.. - Nicotine 7 MG/24HR Transdermal Patch 24 Hour (Nicoderm CQ); Place 1 Patch over 24 hours topicallyon the skin in the morning. On upper body/outer arm, change once a day for two weeks.. - Nicotine 21 MG/24HR Transdermal Patch 24 Hour (Nicoderm CQ); Place 1 Patch over 24 hours topically on the skin in the morning. On upper body/upper arm, change once a day for 6 weeks.. Off aldactone 07/13,off ramipril due to low bp, wt loss 08/12, Ct asa, statin,zetia, BB jeffrey f/u cardiology, echo prior--she cx echo 08/23/24, card cx appt 12/09/24 Continue low dose Ativan for anxiety, add back remeron Advised smoking cessation., stopped wellbutrin after 1 mth,c/o shaking spells even off med, Rx noctine patches done-start with 21 mg patches for 6 weeks then 14 mg for 2 weeks then 7 mg for 2 weeks, if any cravings then to use nicotine gum Has not had EEG--she cx appt 08/16/24, appt neuro.--she cx appt 08/12/24 and 08/24/24 ,defers now per out notes 40 min total time spent with patient, time spent reviewing subspecialty notes, diagnostic studies done, follow-up orders/medication refills,over 1/2 time spent in counseling, coordinating care. Follow Up: Return in about 2 months (around 02/10/2025), or if symptoms worsen or fail to improve, for Return with Physician, Labs 2-5 Days Before Next Visit. | For: Return with Physician, Labs 2-5 Days Before Next Visit | Check-out note: - Pl jeffrey ECHO MALIKA and cardiology appt if possible on 12/16/24 at [facility] -[facility] appt EEG and neurology (This note was completed using the dictation program Fluency Direct. As such, there may be misspellings, word substitutions, or other variations that should not change the essence of the clinical content of this encounter note. If there is need for further clarification, please direct questions to the provider listed above.) Patient and / caregiver verbalize understanding of above instructions and agrees with plan of care. Kia Goetz MD 12/13/2024 documented in this encounter Nursing Notes * Porsha Chase LPN - 12/13/2024 11:29 AM EST The patient has been properly identified by confirmation of name and date of . Chief Complaint Patient presents with Follow Up Rescheduled from previous States this is a rescheduled appt from before, did not get labs done. Patient's spouse 11-10-24. Also is seeing Dr Harrison Ophthalmology,is having a work up done states she has lost sight in right eye. Would like to discuss about getting on antidepressant. documented in this encounter Plan of Treatment Upcoming Encounters Date Type Department Care Team (Late st Contact Info) Description 12/15/2024 9:15 AM EST Office Visit Ophthalmology, [facility] [address] [place] [address] Ryland Harrison, [address] [place] [address] 12/16/2024 2:00 PM EST Appointment Vascular Lab [address] [place] [id number] 12/16/2024 3:00 PM EST Office Visit Vascular Surg [facility] [address] [place] [address] Servando Rees MD [address] [place] [address] 01/03/2025 1:00 PM EDT [facility] [address] [place] [address] 01/12/2025 11:10 AM EDT Office Visit Vascular Surgery, [facility] [address] [place] [address] Servando Rees MD [address] [place] [address] 02/22/2025 1:00 PM EDT Office Visit General Internal Medicine [facility] [address] [place] [address] Kia Goetz MD [address] [place] [address] Scheduled Referrals Name Type Priority Associated Diagnoses Orde r Schedule ADULT/PEDS PSYCHOLOGY REFERRAL OP Referral Within 10 days (routine) Adjustment disorder with mixed anxiety and depressed mood Grief reaction Ordered: 12/13/2024 Health Maintenance Due Date Last Done Comments DISCUSS TOBACCO CESSATION (REFER TO SMARTSET #[id number]) 1945 Alpha-1 Antitrypsin 1965 Hepatitis C Screening [...] Diagnosis 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, severe stage Symptomatic carotid artery narrowing without infarction, right S/P carotid endarterectomy Other postprocedural status Tobacco use disorder Coronary artery disease involving [place] coronary artery of [place] heart without angina pectoris Dyslipidemia, goal LDL below 70 Other and unspecified hyperlipidemia HTN, goal below 140/80 Unspecified essential hypertension Shaking Abnormal involuntary movements Abnormal involuntary movement Abnormal involuntary movements SIXTO (generalized anxiety disorder) Generalized anxiety disorder COPD, group A, by GOLD 2017 classification (HCC) Paroxysmal SVT (supraventricular tachycardia) (HCC) Paroxysmal supraventricular tachycardia Paroxysmal VT (HCC) Paroxysmal ventricular tachycardia Elevated serum alkaline phosphatase level Other nonspecific abnormal serum enzyme levels Adjustment disorder with mixed anxiety and depressed mood Grief reaction Adjustment disorder with depressed mood Hair loss Alopecia, unspecified Vitamin D insufficiency Unspecified vitamin D deficiency Hx of CABG Postsurgical aortocoronary bypass status documented in this encounter Care Teams Dog Track Kennel Manager Relationship Specialty Start Date End Date Kia Goetz MD [address] [facility] [place] [address] PCP - General Internal Medicine 10/08/21 documented as of this encounter"
--- OUTSIDE RECORDS SUMMARY | 2025-01-31 06:37 | External Medical Summary | Summary of Care ---
Author Name Unknown Organization [facility] Address [address] [facility] [place] [address] Phone [phone] Care Team Providers Care Environmental Conservation Officer Name Role Phone Kia Goetz MD Primary Care Provider [phone] Reason for Visit * Reason Onset Date Comments Pre Cert/Prior Auth 12/06/2024 Encounter Details Date Type Department Care Team (Late st Contact Info) Description 12/06/2024 Telephone Ophthalmology, [facility] [address] [place] [address] Ryland Harrison, [address] [place] [address] Pre Cert/Prior Auth Allergies Active Allergy Reactions [...] MG Oral TabletIndications: Coronary artery disease involving [place] coronary artery of [place] heart without angina pectoris,Hx of CABG,S/P carotid [...] Tablet Sublingual (Nitrostat)Indicat ions:Coronary artery disease involving [place] coronary artery of [place] heart without angina pectoris Place 1 Tablet under the tongue as needed for Pain, Chest. May repeat 3 times. If chest pain continues, call 911. 25 Tablet 08/11/20 23 Active Vitamin D-3 25 MCG (1000 UT) Oral CapsuleIndications :Longitudinal ridging of nail,Vitamin D insufficiency 1 capsule daily--inc 02/10/2024 02/10/20 24 Active Ezetimibe 10 MG Oral Tablet (Zetia)Indications :Coronary artery disease involving [place] coronary artery of [place] heart without angina pectoris,Dyslipide bryanna, goal LDL below 70 TAKE 1 TABLET BY MOUTH EVERY DAY IN THE MORNING 90 Tablet 3 03/10/20 24 Active Metoprolol Succinate ER 25 MG Oral Tablet Extended Release 24 Hour (toPROL XL)Indications:Cor onary artery disease involving [place] coronary artery of [place] heart without angina pectoris TAKE 1 TABLET [...] s:COPD, group A, by GOLD 2017 classification ([facility]),Tobacco use disorder Inhale 2 Puffs by [...] A, by GOLD 2017 classification ([facility]),Abnormal lung sounds INHALE 1 PUFF BY [...] Oral Tablet (Lipitor)Indicatio ns:Coronary artery disease involving [place] coronary artery of [place] heart without angina pectoris,Dyslipide bryanna, goal LDL [...] RT arm Coronary artery disease invo lving [place] coronary artery of [place] heart without angina pectoris 10/08/2021 Hx of [...] (Moderna) 01/23/2021,12/28/2020 Pneumococcal Conjugate Vacci ne, 20-valent ([id number]) 09/02/2022 Pneumococcal Polysaccharide PPV23 (Pneumovax) 09/01/2017 Seasonal [...] Medicare Provider: Ryland Harrison DO Tax ID: [id number] Office Address: [address] [place] [address] [place] [address] Office Office Drug Name/CPT: Avastin ICD 10: H35.059 Dosage: 2.75 mg Eye Treated: Right Frequency: Q 4-6 weeks Prior Eye medications received: None Specialty Pharmacy/Buy and bill? Office stock documented in this encounter Plan of Treatment Upcoming Encounters Date Type Department Care Team (Late st Contact Info) Description 12/13/2024 11:20 AM EST Office Visit General Internal Medicine [facility] [address] [facility] [place] [address] Kia Goetz MD [facility] [address] 12/15/2024 9:15 AM EST Office Visit Ophthalmology, [facility] 132 [facility] [place] [address] Ryland Harrison DO 132 [facility] [place] [address] 01/03/2025 1:00 PM EDT Imaging [facility] Lab, [facility] [address] [place] [address] 01/12/2025 11:10 AM EDT Office Visit Vascular Surgery, [address] [place] [address] Servando Rees MD [address] [facility] [address] Health Maintenance Due Date Last Done Comments DISCUSS TOBACCO CESSATION (REFER TO SMARTSET #[id number]) 1945 Alpha-1 Antitrypsin 1965 Hepatitis C Screening [...] filedocumented as of this encounter Care Teams Environmental Conservation Officer Relationship Specialty Start Date End Date Kia Goetz MD [address] [place] [phone] PCP - General Internal Medicine 10/08/21 documented as of this encounter
--- OUTSIDE RECORDS SUMMARY | 2025-01-31 06:37 | External Medical Summary | Summary of Care ---
Author Name Unknown Organization [facility] Address [address] [facility] [place] [address] Phone [phone] Care Team Providers Care Snowboarder Name Role Phone Kia Goetz MD Primary Care Provider [phone] Reason for Visit * Reason Onset Date Comments Medication Refill 11/20/2024 Encounter Details Date Type Department Care Team (Late st Contact Info) Description 11/20/2024 Refill General Internal Medicine [facility] 200 [place] [address] Kia Goetz MD 200 [place] [address] SIXTO (generalized anxiety disorder); Symptomatic carotid artery narrowing without infarction, right; S/P carotid endarterectomy Allergies Active Allergy Reactions Criticality Noted Date Comments Mometasone Furoate 01/08/2022 Blisters sides of mouth Duloxetine Hcl Low 10/08/2021 Not allergic, just doesn't work Levofloxacin High 10/08/2021 Becomes deathly ill documented as of this encounter (statuses as of 11/23/2024) Medications ZyrTEC Allergy 10 MG Oral Capsule (Cetirizine HCl) Take 1 Capsule by mouth in the morning. Active Famotidine 20 MG Oral Tablet (Pepcid) Take 1 Tablet by mouth 2 times a day as needed for Heartburn. -uses 2/wk 10/08/20 21 Active Aspirin 325 MG Oral TabletIndications: Coronary artery disease involving [place] coronary artery of [place] heart without angina pectoris,Hx of CABG,S/P carotid [...] Tablet Sublingual (Nitrostat)Indicat ions:Coronary artery disease involving [place] coronary artery of [place] heart without angina pectoris Place 1 Tablet under the tongue as needed for Pain, Chest. May repeat 3 times. If chest pain continues, call 911. 25 Tablet 08/11/20 23 Active Vitamin D-3 25 MCG (1000 UT) Oral CapsuleIndications :Longitudinal ridging of nail,Vitamin D insufficiency 1 capsule daily--inc 02/10/2024 02/10/20 24 Active Ezetimibe 10 MG Oral Tablet (Zetia)Indications :Coronary artery disease involving [place] coronary artery of [place] heart without angina pectoris,Dyslipide bryanna, goal LDL below 70 TAKE 1 TABLET BY MOUTH EVERY DAY IN THE MORNING 90 Tablet 3 03/10/20 24 Active Metoprolol Succinate ER 25 MG Oral Tablet Extended Release 24 Hour (toPROL XL)Indications:Cor onary artery disease involving [place] coronary artery of [place] heart without angina pectoris TAKE 1 TABLET [...] A, by GOLD 2017 classification ([facility]),Abnormal lung sounds INHALE 1 PUFF BY [...] Oral Tablet (Lipitor)Indicatio ns:Coronary artery disease involving [place] coronary artery of [place] heart without angina pectoris,Dyslipide bryanna, goal LDL below 70 TAKE 1 TABLET BY MOUTH EVERY DAY IN THE MORNING 90 Tablet 3 09/15/20 24 Active LORazepam 0.5 MG Oral Tablet (Ativan)Indication s:SIXTO (generalized anxiety disorder),Symptoma tic carotid artery narrowing without infarction, right,S/P carotid endarterectomy TAKE 1/2 TAB BY MOUTH IN THE MORNING AND EVENING FOR ANXIETY 30 Tablet 11/22/19 25 Active LORazepam 0.5 MG Oral Tablet (Ativan)Indication s:SIXTO (generalized anxiety disorder),Symptoma tic carotid artery narrowing without infarction, right,S/P carotid endarterectomy TAKE 1/2 TAB BY MOUTH IN THE MORNING AND EVENING FOR ANXIETY 30 Tablet 10/19/20 24 025 Discontin ued(Refil l) documented as of this encounter (statuses as of 11/23/2024) Active Problems Problem Noted Date Diagnosed Date [...] RT arm Coronary artery disease invo lving [place] coronary artery of [place] heart without angina pectoris 10/08/2021 Hx of [...] as of this encounter (statuses as of 11/23/2024) Resolved Problems Problem Noted Date Diagnosed Date Resolved Date Bilateral carotid artery stenosis 10/22/2021 08/11/2023 COPD, severity to be determined 10/08/2021 01/01/2023 Overview: Per COPD GOLD Classification documented as of this encounter (statuses as of 11/23/2024) Immunizations Name Administration Dates Next Due COVID-19 mRNA, LNP-s, No Pre serve, 2-Dose Series (Moderna) 01/23/2021,12/28/2020 Pneumococcal Conjugate Vacci ne, 20-valent ([id number]) 09/02/2022 Pneumococcal Polysaccharide PPV23 (Pneumovax) 09/01/2017 Seasonal [...] Telephone Encounter - Kia Goetz MD - 11/22/2024 12:51 PM ESTSigned Prescriptions: Disp Refills LORazepam 0.5 MG Oral Tablet (Ativan) 30 Tab*0 Sig: TAKE 1/2 TABBY MOUTH IN THE MORNING AND EVENING FOR ANXIETYAuthorizing Provider: KIA GOETZ * Telephone Encounter - Kia Goetz MD - 11/22/2024 12:50 PM EST "I have reviewed the patient's controlled substance dispensing history in the Prescription Drug Monitoring Program in compliance with the [facility] regulations before prescribing a controlled substance." Pt cx appt [address] on hospice. * Telephone Encounter - Amadou Weston, [facility] - 11/22/2024 11:46 AM EST Pending Prescriptions: Disp Refills LORazepam 0.5 MG Oral Tablet (Ativan) 30 Tab*0 Sig: TAKE 1/2 TAB BY MOUTH IN THE MORNING AND EVENING FOR ANXIETY * Telephone Encounter - Amadou Weston RP - 11/22/2024 11:46 AM EST I have reviewed the patient’s controlled substance dispensing history in the Prescription Drug Monitoring Program in compliance with the [facility] regulations before prescribing a controlled substance. PDMP checked on 11/22/2024. Pending Prescriptions: Disp Refills LORazepam 0.5 MG Oral Tablet (Ativan) 30 Tab*0 Sig: TAKE 1/2 TAB BY MOUTH IN THE MORNING AND EVENING FOR ANXIETY Last Visit: 08/11/2024 (in office), Visit date not found (telemedicine) Next Visit: Visit date not found Date medication was last filled: 10/19/24 Date medication is due for refill: 11/17/24 Pharmacy: [id number] Is this request for a controlled substance? Yes and Urine Drug Screen Not completed Toxicology results: No results found for this or any previous visit. Please approve if appropriate. Thanks, Amadou Weston, PharmD Clinical Pharmacist [facility] ([facility]) [phone] 11/22/2024, 11:46 AM documented in this encounter Plan of Treatment Upcoming Encounters Date Type Department Care Team (Late st Contact Info) Description 01/03/2025 1:00 PM EDT Imaging Vascular Lab, [facility], [address] [id number] 01/12/2025 11:10 AM EDT Office Visit Vascular Surgery, [facility] [address] [place] [address] Servando Rees MD [address] [facility] [place] [address] Health Maintenance Due Date Last Done Comments DISCUSS TOBACCO CESSATION (REFER TO SMARTSET #8543) 1945 Alpha-1 Antitrypsin 1965 Hepatitis C Screening [...] as of this encounter Visit Diagnoses Diagnosis SIXTO (generalized anxiety disorder) Generalized anxiety disorder Symptomatic carotid artery narrowing without infarction, right S/P carotid endarterectomy Other postprocedural status documented in this encounter Care Teams Snowboarder Relationship Specialty Start Date End Date Kia Goetz MD 200 [place] [address] PCP - General Internal Medicine 10/08/21 documented as of this encounter
--- OUTSIDE RECORDS SUMMARY | 2025-01-31 06:37 | External Medical Summary | Summary of Care ---
Author Name Unknown Organization [facility] Address [address] [facility] [place] [address] Phone [phone] Care Team Providers Care Telecommunications Consultant Name Role Phone Kia Goetz MD Primary Care Provider [phone] Reason for Visit * Reason Comments NEW PATIENT Encounter Details Date Type Department Care Team (Late st Contact Info) Description 12/06/2024 12:45 PM EST Office Visit Ophthalmology, [facility] [address] [facility] [place] [address] Ryland Harrison DO [address] [place] [address] Ocular ischemic syndrome*; Visual distortions of shape [...] MG Oral TabletIndications: Coronary artery disease involving [place] coronary artery of [place] heart without angina pectoris,Hx of CABG,S/P carotid [...] Tablet Sublingual (Nitrostat)Indicat ions:Coronary artery disease involving [place] coronary artery of [place] heart without angina pectoris Place 1 Tablet under the tongue as needed for Pain, Chest. May repeat 3 times. If chest pain continues, call 911. 25 Tablet 08/11/20 23 Active Vitamin D-3 25 MCG (1000 UT) Oral CapsuleIndications :Longitudinal ridging of nail,Vitamin D insufficiency 1 capsule daily--inc 02/10/2024 02/10/20 24 Active Ezetimibe 10 MG Oral Tablet (Zetia)Indications :Coronary artery disease involving [place] coronary artery of [place] heart without angina pectoris,Dyslipide bryanna, goal LDL below 70 TAKE 1 TABLET BY MOUTH EVERY DAY IN THE MORNING 90 Tablet 3 03/10/20 24 Active Metoprolol Succinate ER 25 MG Oral Tablet Extended Release 24 Hour (toPROL XL)Indications:Cor onary artery disease involving [place] coronary artery of [place] heart without angina pectoris TAKE 1 TABLET [...] s:COPD, group A, by GOLD 2017 classification ([facility]),Tobacco use disorder Inhale 2 Puffs by mouth [...] Oral Tablet (Lipitor)Indicatio ns:Coronary artery disease involving [place] coronary artery of [place] heart without angina pectoris,Dyslipide bryanna, goal LDL [...] RT arm Coronary artery disease invo lving [place] coronary artery of [place] heart without angina pectoris 10/08/2021 Hx of [...] (Moderna) 01/23/2021,12/28/2020 Pneumococcal Conjugate Vacci ne, 20-valent ([id number]) 09/02/2022 Pneumococcal Polysaccharide PPV23 (Pneumovax) 09/01/2017 Seasonal [...] encounter Progress Notes * Ryland Harrison, - 12/06/2024 12:45 PM EST [facility] [place] Nursing notes reviewed. Eye vitals reviewed. Mood [...] and quiet OU Iris: +NVI OU Lens: PCIOL OU GONIOSCOPY: 12/06/2024 OD: 75% [...] Pseudophakia OU -stable 4. MDF OU -monitor MDM [...] confirmed with patient and marked by Ryland Harriosn DO Avastin 2.75 mg lot # [id number] Exp. Date: 02/12/25 * Susan Quezada TECH [...] 97 Hypertension Mother Heart attack Father Fatal OR age 39 Asthma Sister Breast Cancer Sister [...] H/O tubal ligation 1978 History of delivery 1975 History of three vessel coronary artery bypass 2014 Patient Active Problem List Diagnosis Coronary artery disease involving [place] coronary artery of [place] heart without angina pectoris Hx of CABG [...] State Alicia Hsieh [address] [place] [address] Kia Goetz MD [address] [facility] [place] [address] 12/15/2024 9:15 AM EST Office Visit Ophthalmology, [facility] [address] [facility] [place] [address] Ryland Harrison DO [address] [place] [address] 01/03/2025 1:00 PM EDT Imaging Vascular Lab, [facility] II 2nd Floor, [address] [place] [address] 01/12/2025 11:10 AM EDT Office Visit Vascular Surgery, [address] [place] [address] Servando Rees MD [address] [place] [address] Scheduled Orders Name Type Priority Associated Diagnoses Orde r Schedule RETINA SCAN DIAGNOSTIC IMAGE, POSTERIOR Procedures Routine Visual distortions of shape and size Ordered: 12/06/2024 FUNDUS PHOTOGRAPHY Procedures Routine Visual distortions of shape and size Ordered: 12/06/2024 Health Maintenance Due Date Last Done Comments DISCUSS TOBACCO CESSATION (REFER TO SMARTSET #4028) 1945 Alpha-1 Antitrypsin 1965 Hepatitis C Screening [...] right eye (HCC) Vitreous hemorrhage Retinal edema documented in this encounter Administered Medications Active Administered Medications - up to 3 most recent administrations Medication Order MAR Action Action Date Dose Rate Site bevaCIZumab (Avastin) inj 1.25 mg 1.25 mg, Intravitreal, PRN Other, Starting on Fri12/06/24 at 1405, Until Fri12/06/25 at 1404, For 365 daysIndications:Ocular ischemic syndrome,Retinal neovascularization of right eye Given 12/06/2024 2:24 PM EST 2.75 mg Eye Right ROPivacaine (Naropin) inj 1.5 mg 1.5 mg, Injection, PRN Other, Starting on Fri12/06/24 at 1405, Until Fri12/06/25 at 1404, For 365 daysIndications:Ocular ischemic syndrome,Retinal neovascularization of right eye Given 12/06/2024 2:23 PM EST 1.5 mg Eye Right documented in this encounter Care Teams Telecommunications Consultant Relationship Specialty Start Date End Date Kia Goetz MD [address] [facility] [place] [address] PCP - General Internal Medicine 10/08/21 documented as of this encounter
--- OUTSIDE RECORDS SUMMARY | 2025-01-31 06:37 | External Medical Summary | Summary of Care ---
Author Name Unknown Organization [facility] Address [address] [place] [address] Phone [phone] Care Team Providers Care Patient Service Associate Name Role Phone Kia Goetz MD Primary Care Provider [phone] Reason for Visit * Reason Onset Date Comments Vascular Study 12/07/2024 Appointment 12/07/2024 Encounter Details Date Type Department Care Team (Late st Contact Info) Description 12/07/2024 Telephone Vascular Surg [facility] [address] [place] [address] Gregg Fonseca PA-C [address] [place] [address] Vascular Study; Appointment Allergies Active [...] MG Oral TabletIndications: Coronary artery disease involving [place] coronary artery of [place] heart without angina pectoris,Hx of CABG,S/P carotid [...] Tablet Sublingual (Nitrostat)Indicat ions:Coronary artery disease involving [place] coronary artery of [place] heart without angina pectoris Place 1 Tablet under the tongue as needed for Pain, Chest. May repeat 3 times. If chest pain continues, call 911. 25 Tablet 08/11/20 23 Active Vitamin D-3 25 MCG (1000 UT) Oral CapsuleIndications :Longitudinal ridging of nail,Vitamin D insufficiency 1 capsule daily--inc 02/10/2024 02/10/20 24 Active Ezetimibe 10 MG Oral Tablet (Zetia)Indications :Coronary artery disease involving [place] coronary artery of [place] heart without angina pectoris,Dyslipide bryanna, goal LDL below 70 TAKE 1 TABLET BY MOUTH EVERY DAY IN THE MORNING 90 Tablet 3 03/10/20 24 Active Metoprolol Succinate ER 25 MG Oral Tablet Extended Release 24 Hour (toPROL XL)Indications:Cor onary artery disease involving [place] coronary artery of [place] heart without angina pectoris TAKE 1 TABLET [...] A, by GOLD 2017 classification ([facility]),Abnormal lung sounds INHALE 1 PUFF [...] Oral Tablet (Lipitor)Indicatio ns:Coronary artery disease involving [place] coronary artery of [place] heart without angina pectoris,Dyslipide bryanna, goal LDL [...] RT arm Coronary artery disease invo lving [place] coronary artery of [place] heart without angina pectoris 10/08/2021 Hx of [...] (Moderna) 01/23/2021,12/28/2020 Pneumococcal Conjugate Vacci ne, 20-valent ([id number]) 09/02/2022 Pneumococcal Polysaccharide PPV23 (Pneumovax) 09/01/2017 Seasonal [...] offered her an appt this week in [place] and she has declined. She states that [...] EST See if pt can come to [facility] [place] [place], to see MALIKA Bello. We can either [...] Adair Pope has appt with us at [facility] December but eye doctor thinks she should consider redo cea sooner than latter Patient cancelled surgery before due to illness of Can we see tomorrow with repeat carotid duplex today or tomorrow? Thanks Roman Can we get pt in for F/U carotid duplex, anytime BTW now and next Wed 01/12 @ [facility]? (Updated order for duplex signed) In addition, patient needs F/U appointment @ [facility] on 01/12 but after 10 AM because pt is having eye injection @ [facility] by Ophthalmology @ 915 AM Patient is aware for need for updated duplex and visit. Thank you ALEKSEY documented in this encounter Plan of Treatment Upcoming Encounters Date Type Department Care Team (Late st Contact Info) Description 12/13/2024 11:20 AM EST Office Visit General Internal Medicine [facility] [place] [address] Kia Goetz MD [address] [facility] [place] [address] 12/15/2024 9:15 AM EST Office Visit Ophthalmology, [facility] [address] [place] [address] Ryland Harrison DO [address] [place] [address] 12/16/2024 2:00 PM EST Appoint[address]ascular Lab [address] [address] 12/16/2024 3:00 PM EST Office Visit Vascular [facility] [place] [address] [place] [address] Servando Rees MD [address] [place] [address] 01/03/2025 1:00 PM EDT Imaging Vascular Lab, [facility]nd [facility] [address] [place] [address] 01/12/2025 11:10 AM EDT Office Visit Vascular Surgery, [facility] [address] [place] [address] Servando Rees MD [address] [place] [address] Scheduled Orders Name Type Priority Associated Diagnoses Orde r Schedule VASC DUPLEX CAROTID BILAT Medical Imaging Routine S/P carotid endarterectomy Symptomatic stenosis of right carotid artery without infarction Ordered: 12/07/2024 Health Maintenance Due Date Last Done Comments DISCUSS TOBACCO CESSATION (REFER TO SMARTSET #2176) 1945 Alpha-1 Antitrypsin 1965 Hepatitis C Screening [...] infarction documented in this encounter Care Teams Patient Service Associate Relationship Specialty Start Date End Date Kia Goetz MD [address] [facility] [place] [address] PCP - General Internal Medicine 10/08/21 documented as of this encounter
--- NOTE | 2025-01-31 06:38 | Emergency Department Note ---
Impression & Plan Acute hypoxic respiratory failure, Pulmonary edema, Bilateral pleural effusion ED Provider Note NAME: MILDRED RODRIGUES AGE: 79 SEX: F : 1945 ARRIVES VIA: Ambulance INFORMANT: Patient ED PROVIDER(S): King Flores DO CHIEF COMPLAINT: shortness of breath HPI: Patient is a 79-year-old female with past medical history of COPD and recent carotid endarterectomy last week who presents to the ER for severe shortness of breath. Symptoms started last night with cough and congestion which have been getting worse. She is bringing up clear sputum. She notes she cannot breathe. Denies any chest pain. No belly pain. No nausea, vomiting, or diarrhea. No dysuria, urgency, or frequency. No other exacerbating or remitting factors. Patient denies any swelling of the throat or trouble breathing or swallowing. ADDITIONAL HISTORY OBTAINED: Per HPI Chronic Medical/Social Conditions Affecting Care: Per HPI PAST MEDICAL HISTORY:See Below PAST SURGICAL HISTORY:See Below FAMILY HISTORY:See Below SOCIAL HISTORY:See Below HOME MEDICATIONS:See Below ALLERGIES:See Below VITALS:See Below PHYSICAL EXAMINATION: GENERAL: Sitting up in bed, alert, moderate distress, on Bipap EYE EXAM: normal conjunctiva. PERRL and EOM's grossly intact. OROPHARYNX:mucous membranes are moist NECK: supple, no nuchal rigidity, no adenopathy, non-tender LUNGS: Wheezing bilaterally. Normal chest wall mechanics HEART: no murmurs, S1 normal and S2 normal ABDOMEN: abdomen soft, non-tender, normo-active bowel sounds, no masses, no rebound or guarding. UPPER EXTREMITIES: upper extremities are grossly normal. LOWER EXTREMITIES: No pitting edema. Calves are equal bilaterally NEURO EXAM: Normal sensorium, cranial nerves II-XII grossly intact, normal speech, no gross weakness of arms, no gross weakness of legs. MEDICAL DECISION MAKING: Patient is a 79-year-old female who presents to the ER for respiratory distress. Upon arrival via EMS she is on CPAP. She was switched to BiPAP. IVs were established and blood work was obtained. Labs show no significant leukocytosis and a mild anemia 11. VBG with a pH of 7.45 and a CO2 is 27 and O2 at 216. BMP was fairly unremarkable. LFTs and bilirubin was unremarkable. Troponin was negative initially. Lipase normal. Viral panel was negative. Chest x-ray with bilateral pleural effusions and pulmonary edema. Patient was transitioned from BiPAP to nasal cannula. She was given Lasix, Rocephin, steroids as well as neb treatments. She did have improvement of her symptoms. She was given several small dose of Ativan as she felt very anxious. Case was discussed with the hospitalist the patient was admitted for further workup. Consults/Care Managements Discussions: Per MDM Triage Nursing notes reviewed. Limited review of prior medical records performed Vital Signs: reviewed and remarkable for no significant abnormalities Differential diagnosis: Differential diagnoses includes but is not limited to pneumonia, bronchitis, COPD/Asthma exacerbation, pneumothorax, pulmonary embolism, congestive heart failure, acute coronary syndrome ER treatment provided: See below Diagnostics interpreted by me include EKG and cardiac monitoring as listed below: -Cardiac Monitoring: An order was placed for continuous cardiac monitoring. The monitor shows a rate of 82 with sinus rhythm. -ECG: Sinus rhythm rate 84 PVCs QTc 467 -Laboratory studies:Interpreted by me as stated above in MDM and shown below. Imaging studies: Xrays: As interpreted by me: Portable AP upright 1 view of the chest shows bilateral pleural effusions CTs show: none Procedures:none Critical Care: I have personally spent 75 minutes of critical care time in the direct management of this patient. This includes bedside care, interpretation of diagnostic studies, and testing, discussion with consultants, patient, and family members, and other required patient management activities. This 75 minutes is in excess of all separately billable procedures. Past Med/Surg History Problem List (Updated 01/31/25 @ 12:47 by King Flores DO) Acute on chronic heart failure with preserved ejection fraction (HFpEF) Bilateral pleural effusion (Acute) Pulmonary edema (Acute) Acute hypoxic respiratory failure (Acute) Dizziness (Acute) Medical History (Updated 01/31/25 @ 12:47 by King Flores DO) Generalized anxiety disorder Tobacco abuse PVD (peripheral vascular disease) PAD (peripheral artery disease) Glaucoma Ocular ischemic syndrome Pre-diabetes CAD (coronary artery disease) Carotid artery stenosis HLD (hyperlipidemia) HTN (hypertension) Surgical History (Updated 01/31/25 @ 10:45 by Francheska Stauffer PA-C) History of carotid endarterectomy History of coronary artery bypass graft x 3 Social History (Updated 01/31/25 @ 10:45 by Francheska Stauffer PA-C) Smoking Status: Current every day smoker Tobacco Type: Cigarettes Cigarettes Per Day: 1/2 pack per day; Second Hand Exposure: No; Do You Dip or Chew Tobacco: No; Tobacco Cessation Education Requested by Patient: No Hx Alcohol Use: No Hx Substance Use: No Preferred Language: Icelandic Communication Ability: Effective 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[employer] & Live Experiences Required: No Beliefs That Will Affect Care: None marital status: / Current Living Situation: Alone Other Information That Helps Us Care for You: No Feels Safe at Home: Yes Safety Concerns: Feels Safe At This Time Assistive Devices: Glasses Allergies Allergies Allergy/AdvReac Type Severity Reaction Status Date / Time duloxetine [From Cymbalta] Allergy Unknown Unknown Unverified 01/31/25 08:16 levofloxacin [From Levaquin] Allergy Unknown Unknown Unverified 01/31/25 08:16 mometasone furoate Allergy Unknown Unknown Unverified 01/31/25 08:16 [From Asmanex Twisthaler] Home Meds Home Medications Medication Instructions Recorded Confirmed albuterol sulfate 90 mcg/actuation 2 puff inhalation Q4H PRN Wheezing 01/27/25 01/31/25 aerosol inhaler atorvastatin 40 mg tablet 40 mg PO QAM 01/27/25 01/31/25 clopidogrel 75 mg tablet 75 mg PO QAM 01/27/25 01/31/25 dorzolamide 22.3 mg-timolol 6.8 1 drp OPR BID 01/27/25 01/31/25 mg/mL eye drops ezetimibe 10 mg tablet 10 mg PO QAM 01/27/25 01/31/25 lorazepam 0.5 mg tablet 0.25 mg PO BID 01/27/25 01/31/25 metoprolol succinate 25 mg 25 mg PO QAM 01/27/25 01/31/25 tablet,extended release 24 hr oxycodone 5 mg tablet 5 mg PO Q8H PRN Pain 01/27/25 01/31/25 acetaminophen 500 mg tablet 1,000 mg PO TID PRN Pain 01/31/25 01/31/25 aspirin 81 mg tablet,delayed 81 mg PO DAILY 01/31/25 01/31/25 release cetirizine 10 mg capsule (Zyrtec) 10 mg PO DAILY PRN Allergy Symptoms 01/31/25 01/31/25 cholecalciferol (vitamin D3) 25 25 mcg PO DAILY 01/31/25 01/31/25 mcg (1,000 unit) capsule (Vitamin D3) famotidine 10 mg tablet 10 mg PO BID PRN heart burn 01/31/25 01/31/25 nicotine 21 mg/24 hr daily 1 patch transdermal DAILY 01/31/25 01/31/25 transdermal patch Results & Data (ED) Vital Signs Vital Signs - 24 hr 01/31/25 06:29 01/31/25 06:32 01/31/25 06:40 Temperature 36.8 C Temperature Source Temporal Artery Scan Pulse Rate 112 H 110 H Pulse Rate [Apical] Respiratory Rate 40 H Respiratory Effort / Characteristics Non-Labored Spontaneous Labored Short of Breath Respiratory Depth Normal Retractive Respiratory Pattern Regular Tachypnea Blood Pressure 130/84 Blood Pressure [Right Arm] Blood Pressure Mean 99 Blood Pressure Mean [Right Arm] Blood Pressure Position [Right Arm] Pulse Oximetry 94 Oxygen Delivery Method BiPAP BiPAP Oxygen Flow Rate Fraction of Inspired Oxygen Sepsis Recent Fever Within 48 Hours No Sepsis New/Unexplained Change in Mental Status No Sepsis Action Taken by Nursing Physician Notified 01/31/25 06:40 01/31/25 06:40 01/31/25 06:54 Temperature Temperature Source Pulse Rate Pulse Rate [Apical] 88 Respiratory Rate 26 H Respiratory Effort / Characteristics Non-Labored Spontaneous Respiratory Depth Normal Respiratory Pattern Tachypnea Blood Pressure Blood Pressure [Right Arm] 130/84 Blood Pressure Mean Blood Pressure Mean [Right Arm] 99 Blood Pressure Position [Right Arm] Sitting Pulse Oximetry 95 Oxygen Delivery Method BiPAP BiPAP BiPAP Oxygen Flow Rate Fraction of Inspired Oxygen Sepsis Recent Fever Within 48 Hours Sepsis New/Unexplained Change in Mental Status Sepsis Action Taken by Nursing 01/31/25 07:07 01/31/25 07:10 01/31/25 08:17 Temperature Temperature Source Pulse Rate 102 H Pulse Rate [Apical] 102 H 81 Respiratory Rate 40 H 40 H 22 Respiratory Effort / Characteristics Spontaneous Short of Breath Spontaneous Short of Breath Non-Labored Spontaneous Respiratory Depth Normal Normal Respiratory Pattern Tachypnea Regular Blood Pressure Blood Pressure [Right Arm] 127/72 Blood Pressure Mean Blood Pressure Mean [Right Arm] 90 Blood Pressure Position [Right Arm] Sitting Pulse Oximetry 96 Oxygen Delivery Method BiPAP Nasal Cannula Oxygen Flow Rate 3 Fraction of Inspired Oxygen 50 50 Sepsis Recent Fever Within 48 Hours Sepsis New/Unexplained Change in Mental Status Sepsis Action Taken by Nursing 01/31/25 08:59 Temperature Temperature Source Pulse Rate Pulse Rate [Apical] 81 Respiratory Rate 20 Respiratory Effort / Characteristics Non-Labored Spontaneous Respiratory Depth Normal Respiratory Pattern Regular Blood Pressure Blood Pressure [Right Arm] 112/50 L Blood Pressure Mean Blood Pressure Mean [Right Arm] 70 Blood Pressure Position [Right Arm] Sitting Pulse Oximetry 96 Oxygen Delivery Method Nasal Cannula Oxygen Flow Rate 3 Fraction of Inspired Oxygen Sepsis Recent Fever Within 48 Hours Sepsis New/Unexplained Change in Mental Status Sepsis Action Taken by Nursing Laboratory Data 01/31/25 06:36 01/31/25 06:36 Lab Results 01/31/25 01/31/25 01/31/25 Range/Units 06:36 06:39 06:40 WBC 8.04 (4.8-10.8) K/ul RBC 3.86 L (4.20-5.40) M/uL Hgb 11.2 L (12.0-16.0) g/dl POC Hgb 11.2 L (12.0-16.0) g/dl Hct 35.7 L (37.0-47.0) % POC Hct 33 L (37-47) % MCV 92.5 (80.0-100.0) fL MCH 29.0 (25.0-34.0) pg MCHC 31.4 L (32.0-36.0) g/dL RDW Std Deviation 51.0 H (36.4-46.3) fL RDW Coeff of Jennifer 15.5 H (11.5-14.5) % Plt Count 395 (130-400) K/uL MPV 9.3 L (9.4-12.4) fL Immature Gran % (Auto) 0.6 % Neut % (Auto) 57.7 % Lymph % (Auto) 31.0 % Dickson % (Auto) 7.7 % Eos % (Auto) 2.4 % Baso % (Auto) 0.6 % Neut # (Auto) 4.64 (1.40-6.50) K/uL Lymph # (Auto) 2.49 (1.20-3.40) K/uL Dickson # (Auto) 0.62 H (0.11-0.59) K/uL Eos # (Auto) 0.19 (0.00-0.50) K/uL Baso # (Auto) 0.05 (0.00-0.20) K/uL Immature Gran # (Auto) 0.05 (0.01-0.20) K/uL POC pH (7.35-7.45) POC pCO2 (35-46) mmHg POC pO2 (80-95) mmHg POC HCO3 (19-24) baron/L POC Base Excess (-9-1.8) baron/L POC ABG O2 Sat (90-95) % POC Sodium 143 (135-144) mmol/L Sodium 145 (136-145) mmol/L POC Potassium 4.2 (3.3-5.0) mmol/L Potassium 4.3 (3.5-5.1) mmol/L POC Chloride 108 (101-112) mmol/L Chloride 111 H (98-107) mmol/L Carbon Dioxide 27 (21-32) mmol/L POC Total CO2 23 L (24-31) mmol/L Anion Gap 7 (3-11) POC Anion Gap 18.0 (16-25) mmol/L POC BUN 9 (7-18) mg/dl BUN 13 (6-23) mg/dl Creatinine 0.87 (0.6-1.2) mg/dl POC Creatinine 0.8 (0.6-1.3) mg/dl Est Cr Clr Drug Dosing 48.4 ml/min eGFR 68.58 BUN/Creatinine Ratio 14.9 (10-20) Glucose 145 H (70-99(Fasting)) mg/dl POC Glucose (other) 140 H (70-99) mg/dl Lactate (0.4-2.0) mmol/L Calcium 8.8 (8.6-10.3) mg/dl POC Ioniz Calcium Willis 1.20 (1.12-1.32) mmol/l Total Bilirubin 0.4 (0.2-1.0) mg/dl AST 18 (13-39) U/L ALT 21 (7-52) U/L Alkaline Phosphatase 127 H (34-104) U/L Troponin I High Sens 11.5 (0-14) pg/ml Total Protein 6.7 (6.0-8.3) gm/dl Albumin 3.9 (3.4-5.0) gm/dl Globulin 2.8 (2.5-4.0) gm/dl Albumin/Globulin Ratio 1.4 (0.9-2) Lipase 17 (11-82) U/L Adenovirus (PCR) Not Detected (NotDetected) B. pertussis DNA (PCR) Not Detected (NotDetected) B.parapertussis DNA PCR Not Detected (NotDetected) C. pneumoniae DNA (PCR) Not Detected (NotDetected) Coronavirus OC43 (PCR) Not Detected (NotDetected) Coronavirus HKU1 (PCR) Not Detected (NotDetected) Coronavirus 229E (PCR) Not Detected (NotDetected) SARS-CoV-2 (PCR) Not Detected (NotDetected) Coronavirus NL63 (PCR) Not Detected (NotDetected) Human Metapneumovir PCR Not Detected (NotDetected) Influenza Type A (PCR) Not Detected (NotDetected) Influenza Type B (PCR) Not Detected (NotDetected) M. pneumoniae (PCR) Not Detected (NotDetected) Parainfluenza 1 (PCR) Not Detected (NotDetected) Parainfluenza 2 (PCR) Not Detected (NotDetected) Parainfluenza 3 (PCR) Not Detected (NotDetected) Parainfluenza 4 (PCR) Not Detected (NotDetected) RSV (PCR) Not Detected (NotDetected) Entero/Rhino (PCR) Not Detected (NotDetected) 01/31/25 01/31/25 Range/Units 08:13 08:18 WBC (4.8-10.8) K/ul RBC (4.20-5.40) M/uL Hgb (12.0-16.0) g/dl POC Hgb 10.9 L (12.0-16.0) g/dl Hct (37.0-47.0) % POC Hct 32 L (37-47) % MCV (80.0-100.0) fL MCH (25.0-34.0) pg MCHC (32.0-36.0) g/dL RDW Std Deviation (36.4-46.3) fL RDW Coeff of Jennifer (11.5-14.5) % Plt Count (130-400) K/uL MPV (9.4-12.4) fL Immature Gran % (Auto) % Neut % (Auto) % Lymph % (Auto) % Dickson % (Auto) % Eos % (Auto) % Baso % (Auto) % Neut # (Auto) (1.40-6.50) K/uL Lymph # (Auto) (1.20-3.40) K/uL Dickson # (Auto) (0.11-0.59) K/uL Eos # (Auto) (0.00-0.50) K/uL Baso # (Auto) (0.00-0.20) K/uL Immature Gran # (Auto) (0.01-0.20) K/uL POC pH 7.45 (7.35-7.45) POC pCO2 27 L (35-46) mmHg POC pO2 216 H (80-95) mmHg POC HCO3 19 (19-24) baron/L POC Base Excess -5.0 (-9-1.8) baron/L POC ABG O2 Sat 100.0 H (90-95) % POC Sodium 140 (135-144) mmol/L Sodium (136-145) mmol/L POC Potassium 4.1 (3.3-5.0) mmol/L Potassium (3.5-5.1) mmol/L POC Chloride (101-112) mmol/L Chloride (98-107) mmol/L Carbon Dioxide (21-32) mmol/L POC Total CO2 20 L (24-31) mmol/L Anion Gap (3-11) POC Anion Gap (16-25) mmol/L POC BUN (7-18) mg/dl BUN (6-23) mg/dl Creatinine (0.6-1.2) mg/dl POC Creatinine (0.6-1.3) mg/dl Est Cr Clr Drug Dosing ml/min eGFR BUN/Creatinine Ratio (10-20) Glucose (70-99(Fasting)) mg/dl POC Glucose (other) (70-99) mg/dl Lactate 1.9 (0.4-2.0) mmol/L Calcium (8.6-10.3) mg/dl POC Ioniz Calcium Willis (1.12-1.32) mmol/l Total Bilirubin (0.2-1.0) mg/dl AST (13-39) U/L ALT (7-52) U/L Alkaline Phosphatase (34-104) U/L Troponin I High Sens (0-14) pg/ml Total Protein (6.0-8.3) gm/dl Albumin (3.4-5.0) gm/dl Globulin (2.5-4.0) gm/dl Albumin/Globulin Ratio (0.9-2) Lipase (11-82) U/L Adenovirus (PCR) (NotDetected) B. pertussis DNA (PCR) (NotDetected) B.parapertussis DNA PCR (NotDetected) C. pneumoniae DNA (PCR) (NotDetected) Coronavirus OC43 (PCR) (NotDetected) Coronavirus HKU1 (PCR) (NotDetected) Coronavirus 229E (PCR) (NotDetected) SARS-CoV-2 (PCR) (NotDetected) Coronavirus NL63 (PCR) (NotDetected) Human Metapneumovir PCR (NotDetected) Influenza Type A (PCR) (NotDetected) Influenza Type B (PCR) (NotDetected) M. pneumoniae (PCR) (NotDetected) Parainfluenza 1 (PCR) (NotDetected) Parainfluenza 2 (PCR) (NotDetected) Parainfluenza 3 (PCR) (NotDetected) Parainfluenza 4 (PCR) (NotDetected) RSV (PCR) (NotDetected) Entero/Rhino (PCR) (NotDetected) Administered Medications Discontinued Medications Albuterol (Albut/Ipratrop 3mg/0.5mg Neb 3 Ml Vial) 3 ml NEB NOW STA; Protocol Stop: 01/31/25 06:34 Last Admin: 01/31/25 06:43 Dose: 3 ml Documented By: KIRA Furosemide (Furosemide 40 Mg/4 Ml Vial) 40 mg IV NOW STA Stop: 01/31/25 07:11 Last Admin: 01/31/25 07:22 Dose: 40 mg Documented By: IVETH Ceftriaxone Sodium (Rocephin) 2,000 mg in 50 mls @ 100 mls/hr IV NOW STA Stop: 01/31/25 07:39 Last Infusion: 01/31/25 09:11 Dose: Infused Documented By: Admin: 01/31/25 08:40 Dose: 100 mls/hr Documented By: IVETH Ioversol (Optiray 320 125ml) 68 ml IV ONCE ONE Stop: 01/31/25 08:35 Last Admin: 01/31/25 08:34 Dose: 68 ml Documented By: STEPHANIE Lorazepam (Lorazepam 2 Mg/1 Ml Vial) Confirm Administered Dose 2 mg .ROUTE .STK- MED ONE Stop: 01/31/25 06:34 Last Admin: 01/31/25 06:44 Dose: Not Given Documented By: KIRA Lorazepam (Lorazepam 2 Mg/1 Ml Vial) 0.25 mg IV NOW STA Stop: 01/31/25 06:34 Last Admin: 01/31/25 06:44 Dose: 0.25 mg Documented By: KIRA Lorazepam (Lorazepam 2 Mg/1 Ml Vial) 0.25 mg IV NOW STA Stop: 01/31/25 07:15 Last Admin: 01/31/25 07:18 Dose: 0.25 mg Documented By: IVETH Lorazepam (Lorazepam 2 Mg/1 Ml Vial) 0.25 mg IV NOW STA Stop: 01/31/25 09:31 Last Admin: 01/31/25 09:39 Dose: 0.25 mg Documented By: IVETH Methylprednisolone (Methylprednisolone 125 Mg/2 Ml Vial) 60 mg IV NOW STA Stop: 01/31/25 06:34 Last Admin: 01/31/25 06:43 Dose: 60 mg Documented By: KIRA Imaging Data Radiologist's Impression: Chest X-Ray 01/31/25 06:33 EXAM: XR chest 1V portable CLINICAL HISTORY: Chest pain, nonspecific TECHNIQUE: An X-ray image of the chest is obtained in AP projection. COMPARISON: CTA chest dated on 01/27/2025. FINDINGS: Pulmonary Parenchyma: Both CP angles are obliterated, suggesting mild pleural effusion. Bilateral basal atelectasis bands were noted. No evidence of lobar consolidation, collapse, or focal opacities. Heart and Mediastinum: Heart size and shape are normal. No mediastinal widening or masses. A stent is projected over the upper mediastinum in the left carotid artery. Bony Thorax: A previous sternotomy was noted. Degenerative changes of the visualized skeleton. Soft Tissues: Soft tissues overlying the chest wall are unremarkable. IMPRESSION: 1. Both CP angles are obliterated, suggesting mild pleural effusion. Unchanged. 2. Bilateral basal atelectasis bands were noted. Unchanged. 3. No gross interval change in comparison with the CTA chest dated on 01/27/2025. Electronically signed by Carlos Moscoso 01-31-2025 07:21 AM Chest CTA 01/31/25 07:37 CT angio chest PE protocol CT DOSE: 645.76 mGy.cm HISTORY: 79 years-old Female with PE. Acute shortness of breath TECHNIQUE: Multiple CTA images of the chest were obtained after the intravenous administration of 68 ml Optiray. Coronal and sagittal MIPS were obtained from the axial data set and were submitted for review. All measurements were obtained according to NASCET criteria. A dose lowering technique was utilized adhering to the principles of ALARA. COMPARISON: 01/27/2025 FINDINGS: CTA: Median sternotomy. Moderate cardiomegaly. Extensive coronary artery calcifications with prior CABG. Atherosclerosis of the aorta with prominent plaque likely resulting in high-grade stenosis at the origin of the great vessels. There is a stent within the origin of the left common carotid artery. The the left heart structures and aorta are not well opacified secondary to contrast bolus timing. No pulmonary emboli are identified. CT CHEST: Unremarkable thyroid. No pathologically enlarged lymph nodes. Small left with moderate right pleural effusions. No pneumothorax. Intralobular septal thickening with dependent bibasilar atelectasis, bronchial wall thickening and mild bibasilar mucous plugging. No suspicious pulmonary nodules or masses identified. Prominent atherosclerosis of the upper abdominal aorta. Unchanged left adrenal gland thickening with probable adenoma. There is nonspecific wall thickening noted throughout the majority of the esophagus and gastroesophageal junction. No acute fracture identified. IMPRESSION: 1. No pulmonary emboli identified. 2. Cardiomegaly with interstitial pulmonary edema, small left and moderate right pleural effusions. 3. Mild bibasilar mucous plugging with dependent atelectasis. 4. Extensive atherosclerosis of the aorta and proximal great vessels redemonstrated, not well evaluated secondary to contrast bolus timing. ACT 112: Negative or not required by law. The above report was generated using voice recognition software. It may contain grammatical, syntax or spelling errors. Electronically signed by: Todd Luu M.D. 01/31/2025 8:44 AM Discharge Plan Visit Data Chief Complaint: Respiratory Distress Stated Complaint: RESPIRATORY DISTRESS ED Provider: King Flores Discharge Problem: Acute hypoxic respiratory failure, Pulmonary edema, Bilateral pleural effusion Patient Disposition: Admitted As Inpatient Discharge Instructions Interventions: ED Discharge Assessment Last Done: 01/31/25 10:59 Discharge Problem: Pulmonary edema Qualifiers: Chronicity: acute Qualified Code(s): J81.0 - Acute pulmonary edema
--- OUTSIDE RECORDS SUMMARY | 2025-01-31 06:38 | External Medical Summary | Summary of Care ---
Author Name Unknown Organization [facility] Address [address] [place] [address] Phone [phone] Care Team Providers Care Machine Maintenance Name Role Phone Kia Goetz MD Primary Care Provider [phone] Reason for Visit * Reason Onset Date Comments Test Results 07/28/2024 Encounter Details Date Type Department Care Team (Late st Contact Info) Description 07/28/2024 Telephone General Internal Medicine [facility] [address] [facility] [place] [address] Kia Goetz MD 200 [facility] [place] [address] Test Results Allergies Active Allergy Reactions Criticality Noted Date Comments Mometasone Furoate 01/08/2022 Blisters sides of mouth Duloxetine Hcl Low 10/08/2021 Not allergic, just doesn't work Levofloxacin High 10/08/2021 Becomes deathly ill documented as of this encounter (statuses as of 10/27/2024) Medications ZyrTEC Allergy 10 MG Oral Capsule (Cetirizine HCl) Take 1 Capsule by mouth in the morning. Active Famotidine 20 MG Oral Tablet (Pepcid) Take 1 Tablet by mouth 2 times a day as needed for Heartburn. -uses 2/wk 10/08/20 Active Aspirin 325 MG Oral TabletIndications: Coronary artery disease involving [place] coronary artery of [place] heart without angina pectoris,Hx of CABG,S/P carotid endarterectomy Take 1 Tablet by mouth in the morning. 1 Tablet 03/22/20 22 Active Acetaminophen 500 MG Oral Tablet (Tylenol)Indicatio ns:Headache, unspecified headache type Take by mouth 2 Tablets as needed in the morning AND 2 Tablets as needed at noon AND 2 Tablets as needed in the evening (headache). 100 Tablet 01/09/20 22 Active Nitroglycerin 0.4 MG Sublingual Tablet Sublingual (Nitrostat)Indicat ions:Coronary artery disease involving [place] coronary artery of [place] heart without angina pectoris Place 1 Tablet under the tongue as needed for Pain, Chest. May repeat 3 times. If chest pain continues, call 911. 25 Tablet 08/11/20 23 Active Vitamin D-3 25 MCG (1000 UT) Oral CapsuleIndications :Longitudinal ridging of nail,Vitamin D insufficiency 1 capsule daily--inc 02/10/2024 02/10/20 24 Active Ezetimibe 10 MG Oral Tablet (Zetia)Indications :Coronary artery disease involving [place] coronary artery of [place] heart without angina pectoris,Dyslipide bryanna, goal LDL below 70 TAKE 1 TABLET BY MOUTH EVERY DAY IN THE MORNING 90 Tablet 3 03/10/20 24 Active Metoprolol Succinate ER 25 MG Oral Tablet Extended Release 24 Hour (toPROL XL)Indications:Cor onary artery disease involving [place] coronary artery of [place] heart without angina pectoris TAKE 1 TABLET [...] s:COPD, group A, by GOLD 2017 classification ([facility]),Tobacco use disorder Inhale 2 Puffs [...] 08/11/2023. 60 Each 5 07/06/20 24 Active documented as of this encounter (statuses as of 10/27/2024) Active Problems Problem Noted Date Diagnosed Date [...] RT arm Coronary artery disease invo lving [place] coronary artery of [place] heart without angina pectoris 10/08/2021 Hx of [...] as of this encounter (statuses as of 10/27/2024) Resolved Problems Problem Noted Date Diagnosed Date Resolved Date Bilateral carotid artery stenosis 10/22/2021 08/11/2023 COPD, severity to be determined 10/08/2021 01/01/2023 Overview: Per COPD GOLD Classification documented as of this encounter (statuses as of 10/27/2024) Immunizations Name Administration Dates Next Due COVID-19 mRNA, LNP-s, No Pre serve, 2-Dose Series (Moderna) 01/23/2021,12/28/2020 Pneumococcal Conjugate Vacci ne, 20-valent ([id number]) 09/02/2022 Pneumococcal Polysaccharide PPV23 (Pneumovax) 09/01/2017 Seasonal [...] encounter Miscellaneous Notes * Telephone Encounter - Dionna Cifuentes LPN - 07/28/2024 3:00 PM EDT My [employer] message sent. * Telephone Encounter - Dionna Cifuentes LPN - 07/28/2024 1:56 PM EDT ----- Message from Gabriel Ramirez DO sent at 07/28/2024 1:52 PM EDT ----- Reviewed patient's 7 day Zio patch results. Underlying rhythm sinus. Did have short run of V-tach which lasted 6 beats. Did have short runs of SVT the longest lasting 7 beats. Unsure if SVT would explain the episodes she was noting. She should follow-up as scheduled in office to discuss possible Cardiology referral documented in this encounter Plan of Treatment Upcoming Encounters Date Type Department Care Team (Late st Contact Info) Description 11/15/2024 3:00 PM EST Office Visit General Internal Medicine [facility] [address] [facility] [place] [address] Kia Goetz MD 200 [place] [address] 01/03/2025 11:00 AM EDT Imaging Vascular Lab, [facility] [address] 01/12/2025 11:10 AM EDT Office Visit Vascular Surgery, [facility] 132 [facility] [place] [address] Servando Rees MD [address] [place], [place] [id number] Health Maintenance Due Date Last Done Comments DISCUSS TOBACCO CESSATION (REFER TO SMARTSET #3291) 1945 Alpha-1 Antitrypsin 1965 Hepatitis C Screening 1965 Lung Cancer Screening 1997 Adult Wellness Visit 2013 DXA Scan 09/04/2022 09/04/2015 COVID-19 Vaccine ( season) 2024 08/20/2021, 01/23/2021, 12/28/2020 Influenza Vaccine (FLU shot) (#1) 2024 08/11/2023, 09/02/2022, 10/08/2021 Depression Screening 08/11/2024 08/11/2023 DTap/Tdap Vaccines (1 - Tdap) 10/20/2024 Postponed from 1966 (Patient Declined After Education) Zoster Vaccines (1 of 2) 10/20/2024 Pos tponed from 1997 (Patient Declined After Education) O2 ASSESSMENT COMPLETED IN PAST YEAR FOR COPD 07/05/2025 07/05/2024 GFR 08/12/2025 08/12/2024, 04/21, 04/01/2024, Additional history exists HbA1c 08/12/2025 08/12/2024, 01/19, 08/11/2023, Additional history exists Albumin/Creatinine Ratio 08/11/2026 [...] filedocumented as of this encounter Care Teams Machine Maintenance Relationship Specialty Start Date End Date Kia Goetz MD [address] [facility] [place] [address] PCP - General Internal Medicine 10/08/21 documented as of this encounter
--- OUTSIDE RECORDS SUMMARY | 2025-01-31 06:38 | External Medical Summary | Summary of Care ---
Author Name Unknown Organization [facility] Address [address] [place] [address] Phone [phone] Care Team Providers Care Lead Oracle Developer Name Role Phone Kia Goetz MD Primary Care Provider [phone] Reason for Visit * Reason Comments eRx-Medication Refill Encounter Details Date Type Department Care Team (Late st Contact Info) Description 10/17/2024 Refill General Internal Medicine [facility] 200 [facility] [place] [address] Kia Goetz MD 200 [place] [address] SIXTO (generalized anxiety disorder); Symptomatic carotid artery narrowing without infarction, right; S/P carotid endarterectomy Allergies Active Allergy Reactions Criticality Noted Date Comments Mometasone Furoate 01/08/2022 Blisters sides of mouth Duloxetine Hcl Low 10/08/2021 Not allergic, just doesn't work Levofloxacin High 10/08/2021 Becomes deathly ill documented as of this encounter (statuses as of 10/19/2024) Medications ZyrTEC Allergy 10 MG Oral Capsule (Cetirizine HCl) Take 1 Capsule by mouth in the morning. Active Famotidine 20 MG Oral Tablet (Pepcid) Take 1 Tablet by mouth 2 times a day as needed for Heartburn. -uses 2/wk Active Aspirin 325 MG Oral TabletIndications :Coronary artery disease involving level[place] coronary artery of levelock heart without angina pectoris,Hx of CABG,S/P carotid [...] Tablet Sublingual (Nitrostat)Indica tions:Coronary artery disease involving level[place] coronary artery of levelock heart without angina pectoris Place 1 Tablet under the tongue as needed for Pain, Chest. May repeat 3 times. If chest pain continues, call 911. 25 Tablet 023 Active Vitamin D-3 25 MCG (1000 UT) Oral CapsuleIndication s:Longitudinal ridging of nail,Vitamin D insufficiency 1 capsule daily--inc 02/10/2024 024 Active Ezetimibe 10 MG Oral Tablet (Zetia)Indication s:Coronary artery disease involving level[place] coronary artery of levelock heart without angina pectoris,Dyslipid emia, goal LDL below 70 TAKE 1 TABLET BY MOUTH EVERY DAY IN THE MORNING 90 Tablet 3 024 Active Metoprolol Succinate ER 25 MG Oral Tablet Extended Release 24 Hour (toPROL XL)Indications:Co ronary artery disease involving level[place] coronary artery of level[place] heart without angina pectoris TAKE 1 TABLET BY MOUTH EVERY DAY IN THE MORNING 90 Tablet 3 024 Active Butalbital-Acetam inophen 50-325 MG Oral TabletIndications :Lumbar degenerative disc disease,Chronic neck and back pain Take 1 Tablet by mouth daily as needed for Pain, Moderate or Pain, Severe (neck pain). 30 Tablet 024 Active Ventolin HFA 108 (90 Base) MCG/ACT Inhalation Aerosol SolutionIndicatio ns:COPD, group A, by GOLD 2017 classification (HCC),Tobacco use disorder Inhale 2 Puffs by mouth every 4 hours as needed for Wheezing. 18 g 1 024 Active HYDROcodone-Aceta minophen 5-325 MG Oral TabletIndications :S/P wisdom tooth extraction,Pain in gums Take 1 Tablet by mouth every 8 hours as needed for Pain, Moderate (tooth pain sp extraction 05/28/24). 21 Tablet 024 Active Additional Information Patient not taking.Reported on 08/11/2024 Reyna [place] 100-62.5-25 MCG/ACT Aerosol Powder Breath ActivatedIndicati ons:Tobacco use disorder,COPD, group A, by GOLD 2017 classification (HCC),Abnormal lung sounds INHALE 1 PUFF BY MOUTH IN THE MORNING. -FROM 08/11/2023. 60 Each 5 024 Active Mirtazapine 7.5 MG Oral Tablet (Remeron)Indicati ons:Adjustment disorder with depressed mood,Caregiver stress,Adjustment disorder with mixed anxiety and depressed mood,Loss of appetite for more than 2 weeks Take 1 Tablet by mouth at bedtime. 30 Tablet 024 Active Atorvastatin Calcium 40 MG Oral Tablet (Lipitor)Indicati ons:Coronary artery disease involving [place] coronary artery of [place] heart without angina pectoris,Dyslipid emia, goal LDL below 70 TAKE 1 TABLET BY MOUTH EVERY DAY IN THE MORNING 90 Tablet 3 024 Active LORazepam 0.5 MG Oral Tablet (Ativan)Indicatio ns:SIXTO (generalized anxiety disorder),Symptom atic carotid artery narrowing without infarction, right,S/P carotid endarterectomy TAKE 1/2 TAB BY MOUTH IN THE MORNING AND EVENING FOR ANXIETY 30 Tablet 024 Active LORazepam 0.5 MG Oral Tablet (Ativan)Indicatio ns:SIXTO (generalized anxiety disorder),Symptom atic carotid artery narrowing without infarction, right,S/P carotid endarterectomy TAKE 1/2 TAB BY MOUTH IN THE MORNING AND EVENING FOR ANXIETY 30 Tablet 024 2023 Discontinued documented as of this encounter (statuses as of 10/19/2024) Active Problems Problem Noted Date Diagnosed Date [...] RT arm Coronary artery disease invo lving levelock coronary artery of levelock heart without angina pectoris 10/08/2021 Hx of [...] as of this encounter (statuses as of 10/19/2024) Resolved Problems Problem Noted Date Diagnosed Date Resolved Date Bilateral carotid artery stenosis 10/22/2021 08/11/2023 COPD, severity to be determined 10/08/2021 01/01/2023 Overview: Per COPD GOLD Classification documented as of this encounter (statuses as of 10/19/2024) Immunizations Name Administration Dates Next Due COVID-19 mRNA, LNP-s, No Pre serve, 2-Dose Series (Moderna) 01/23/2021,12/28/2020 Pneumococcal Conjugate Vacci ne, 20-valent ([id number]) 09/02/2022 Pneumococcal Polysaccharide PPV23 (Pneumovax) 09/01/2017 Seasonal [...] Telephone Encounter - Kia Goetz MD - 10/19/2024 12:42 PM ESTSigned Prescriptions: Disp Refills LORazepam 0.5 MG Oral Tablet (Ativan) 30 Tab*0 Sig: TAKE 1/2 TAB BY MOUTH IN THE MORNING AND EVENING FOR ANXIETYAuthorizing Provider: KIA GOETZ * Telephone Encounter - Kia Goetz MD - 10/19/2024 12:42 PM EST "I have reviewed the patient's controlled substance dispensing history in the Prescription Drug Monitoring Program in compliance with the [facility] regulations before prescribing a controlled substance." * Telephone Encounter - Paul Clark [facility] - 10/19/2024 7:08 AM EST Pending Prescriptions: Disp Refills LORazepam 0.5 MG Oral Tablet [Pharmacy Med*30 Tab*0 Sig: TAKE 1/2 TAB BY MOUTH IN THE MORNING AND EVENING FOR ANXIETY * Telephone Encounter - Paul Clark RP - 10/19/2024 7:08 AM EST I have reviewed the patient’s controlled substance dispensing history in the Prescription Drug Monitoring Program in compliance with the [facility] regulations before prescribing a controlled substance. PDMP checked on 10/19/2024. Pending Prescriptions: Disp Refills LORazepam 0.5 MG Oral Tablet (Ativan) [Ph*30 Tab*0 Sig: TAKE 1/2 TAB BY MOUTH IN THE MORNING AND EVENING FOR ANXIETY Last Visit: 08/11/2024 (in office), Visit date not found (telemedicine) Next Visit: 11/15/2024 Date medication was last filled: 09/15/24 Date medication is due for refill: 10/13/24 [facility]acy: [id number] Is this request for a controlled substance? Yes and Urine Drug Screen Not completed Toxicology results: No results found for this or any previous visit. Please approve if appropriate. Thanks, Paul Clark, PharmD Clinical Pharmacist [facility] ([facility]) [phone] 10/19/2024, 7:08 AM documented in this encounter Plan of Treatment Upcoming Encounters Date Type Department Care Team (Late st Contact Info) Description 11/15/2024 3:00 PM EST Office Visit General Internal Medicine [address] [place] [address] [place] [address] Kia Goetz MD [address] [place] [address] 01/03/2025 11:00 AM EDT [facility] [address] [place] [address] 01/12/2025 11:10 AM EDT Office Visit Vascular Surgery, [facility] 132 [facility] [place] [address] Servando Rees MD [address] [facility] [place] [address] Health Maintenance Due Date Last Done Comments [...] status documented in this encounter Care Teams Lead Oracle Developer Relationship Specialty Start Date End Date Kia Goetz MD [address] [place] [address] PCP - General Internal Medicine 10/08/21 documented as of this encounter
--- OUTSIDE RECORDS SUMMARY | 2025-01-31 06:38 | External Medical Summary | Summary of Care ---
Author Name Unknown Organization [facility] Address [address] [place] [address] Phone [phone] Care Team Providers Care Acting Instructor Name Role Phone Sabiha Goetz MD Primary Care Provider [phone] Reason for Visit * Reason Comments eRx-Medication Refill Encounter Details Date Type Department Care Team (Late st Contact Info) Description 09/14/2024 Refill General Internal Medicine [facility] 200 [facility] [place] [address] Sabiha Goetz MD 200 [place] [address] Coronary artery disease involving [place] coronary artery of [place] heart without angina pectoris; Dyslipidemia, goal LDL below 70; SIXTO (generalized anxiety disorder); Symptomatic carotid artery narrowing without infarction, right; S/P carotid endarterectomy Allergies Active Allergy Reactions Criticality Noted Date Comments Mometasone Furoate 01/08/2022 Blisters sides of mouth Duloxetine Hcl Low 10/08/2021 Not allergic, just doesn't work Levofloxacin High 10/08/2021 Becomes deathly ill documented as of this encounter (statuses as of 09/15/2024) Medications ZyrTEC Allergy 10 MG Oral Capsule (Cetirizine HCl) Take 1 Capsule by mouth in the morning. Active Famotidine 20 MG Oral Tablet (Pepcid) Take 1 Tablet by mouth 2 times a day as needed for Heartburn. -uses 2/wk 021 Active Aspirin 325 MG Oral TabletIndications :Coronary artery disease involving [place] coronary artery of [place] heart without angina pectoris,Hx of CABG,S/P carotid [...] Tablet Sublingual (Nitrostat)Indica tions:Coronary artery disease involving [place] coronary artery of [place] heart without angina pectoris Place 1 Tablet under the tongue as needed for Pain, Chest. May repeat 3 times. If chest pain continues, call 911. 25 Tablet 023 Active Vitamin D-3 25 MCG (1000 UT) Oral CapsuleIndication s:Longitudinal ridging of nail,Vitamin D insufficiency 1 capsule daily--inc 02/10/2024 024 Active Ezetimibe 10 MG Oral Tablet (Zetia)Indication s:Coronary artery disease involving [place] coronary artery of [place] heart without angina pectoris,Dyslipid emia, goal LDL below 70 TAKE 1 TABLET BY MOUTH EVERY DAY IN THE MORNING 90 Tablet 3 024 Active Metoprolol Succinate ER 25 MG Oral Tablet Extended Release 24 Hour (toPROL XL)Indications:Co ronary artery disease involving [place] coronary artery of [place] heart without angina pectoris TAKE 1 TABLET [...] ns:COPD, group A, by GOLD 2017 classification ([facility]),Tobacco use disorder Inhale 2 [...] Reyna Ellipta 100-62.5-25 MCG/ACT Aerosol Powder Breath ActivatedIndicati ons:Tobacco use disorder,COPD, group A, by GOLD 2017 classification ([facility]),Abnormal lung sounds INHALE 1 PUFF BY MOUTH IN THE MORNING. -FROM 08/11/2023. 60 Each 5 Active Mirtazapine 7.5 MG Oral Tablet (Remeron)Indicati ons:Adjustment disorder with depressed mood,Caregiver stress,Adjustment disorder with mixed anxiety and depressed mood,Loss of appetite for more than 2 weeks Take 1 Tablet by mouth at bedtime. 30 Tablet 024 Active Atorvastatin Calcium 40 MG Oral Tablet (Lipitor)Indicati ons:Coronary artery disease involving [place] coronary artery of [place] heart without angina pectoris,Dyslipid emia, goal LDL below 70 TAKE 1 TABLET BY MOUTH EVERY DAY IN THE MORNING 90 Tablet 3 Active LORazepam 0.5 MG Oral Tablet (Ativan)Indicatio ns:SIXTO (generalized anxiety disorder),Symptom atic carotid artery narrowing without infarction, right,S/P carotid endarterectomy TAKE 1/2 TAB BY MOUTH IN THE MORNING AND EVENING FOR ANXIETY 30 Tablet 024 Active Atorvastatin Calcium 40 MG Oral Tablet (Lipitor)Indicati ons:Coronary artery disease involving [place] coronary artery of [place] heart without angina pectoris,Dyslipid emia, goal LDL below 70 TAKE 1 TABLET BY MOUTH EVERY DAY IN THE MORNING 90 Tablet 3 024 2023 Discontinued LORazepam 0.5 MG Oral Tablet (Ativan)Indicatio ns:SIXTO (generalized anxiety disorder),Symptom atic carotid artery narrowing without infarction, right,S/P carotid endarterectomy TAKE 1/2 TAB BY MOUTH IN THE MORNING AND EVENING FOR ANXIETY 30 Tablet 024 2023 Discontinued documented as of this encounter (statuses as of 09/15/2024) Active Problems Problem Noted Date Diagnosed Date [...] RT arm Coronary artery disease invo lving [place] coronary artery of [place] heart without angina pectoris 10/08/2021 Hx of [...] as of this encounter (statuses as of 09/15/2024) Resolved Problems Problem Noted Date Diagnosed Date Resolved Date Bilateral carotid artery stenosis 10/22/2021 08/11/2023 COPD, severity to be determined 10/08/2021 01/01/2023 Overview: Per COPD GOLD Classification documented as of this encounter (statuses as of 09/15/2024) Immunizations Name Administration Dates Next Due COVID-19 mRNA, LNP-s, No Pre serve, 2-Dose Series (Moderna) 01/23/2021,12/28/2020 Pneumococcal Conjugate Vacci ne, 20-valent ([id number]) 09/02/2022 Pneumococcal Polysaccharide PPV23 (Pneumovax) 09/01/2017 Seasonal [...] encounter Miscellaneous Notes * Telephone Encounter - Sabiha Goetz MD - 09/15/2024 4:29 PM ESTSigned Prescriptions: Disp Refills Atorvastatin Calcium 40 MG Oral Tablet (Li*90 Tab*3 Sig: TAKE 1TABLET BY MOUTH EVERY DAY IN THE MORNINGAuthorizing Provider: Marilou GOETZ User: TODD FLORIAN LORazepam 0.5 MG Oral Tablet (Ativan) 30 Tab*0 Sig: TAKE 1/2 TAB BY MOUTH IN THE MORNING AND EVENING FOR ANXIETYAuthorizing Provider: SABIHA GOETZ * Telephone Encounter - Sabiha Goetz MD - 09/15/2024 4:29 PM EST "I have reviewed the patient's controlled substance dispensing history in the Prescription Drug Monitoring Program in compliance with the [facility] regulations before prescribing a controlled substance." Done Pt cancelled appt neurology and neuropsychology--to reschedule. * Telephone Encounter - Todd Florian [facility] - 09/15/2024 2:29 PM ESTPending Prescriptions: Disp Refills LORazepam 0.5 MG Oral Tablet (Ativan) 30 Tab*0 Sig: TAKE 1/2 TAB BY MOUTH IN THE MORNING AND EVENING FOR ANXIETY Signed Prescriptions: Disp Refills Atorvastatin Calcium 40 MG Oral Tablet (Li*90 Tab*3 Sig: TAKE 1 TABLET BY MOUTH EVERY DAY IN THE MORNING Authorizing Provider: SABIHA GOETZ Ordering U ser: TODD FLORIAN * Telephone Encounter - Todd Florian [facility] - 09/15/2024 2:28 PM EST I have reviewed the patient’s controlled substance dispensing history in the Prescription Drug Monitoring Program in compliance with the [facility] regulations before prescribing a controlled substance. PDMP checked on 09/15/2024. Pending Prescriptions: Disp Refills LORazepam 0.5 MG Oral Tablet (Ativan) [Ph*30 Tab*0 Sig: TAKE 1/2 TAB BY MOUTH IN THE MORNING AND EVENING FOR ANXIETY Signed Prescriptions: Disp Refills Atorvastatin Calcium 40 MG Oral Tablet (Li*90 Tab*3 Sig: TAKE 1 TABLET BY MOUTH EVERY DAY IN THE MORNING Authorizing Provider: SABIHA GOETZ Ordering User: TODD FLORIAN Last Visit: 08/11/2024 (in office), Visit date not found (telemedicine) Next Visit: 11/15/2024 Date medication was last filled: 08/11/2024 Date medication is due for refill: 09/09/2024 Pharmacy: [id number] [address] [facility] Is this request for a controlled substance? Yes and Urine Drug Screen Not completed Toxicology results: No results found for this or any previous visit. Please approve if appropriate. Thanks, Todd Florian Pharm.D. Clinical Pharmacist [facility] ([facility]) [phone] 09/15/2024, 2:29 PM documented in this encounter Plan of Treatment Upcoming Encounters Date Type Department Care Team (Late st Contact Info) Description 11/15/2024 3:00 PM EST Office Visit General Internal Medicine [facility] 200 [facility] [place] [address] Sab[facility] [address] [facility] [address] 12/09/2024 9:30 AM EST Office Visit Cardiology, [facility] [address] [facility] [place] [address] Trupti Sage, [place]-Cathy 132 [facility] [place] [address] 01/03/2025 11:00 AM EDT [facility] [address] [facility] [place] [address] 01/12/2025 11:10 AM EDT Office Visit Vascular Surgery, [facility] [address] [facility] [place] [address] Servando Rees MD [address] [place] [address] Health Maintenance Due Date Last Done Comments DISCUSS TOBACCO CESSATION (REFER TO SMARTSET #4148) 1945 Alpha-1 Antitrypsin 1965 Hepatitis C Screening [...] exists Albumin/Creatinine Ratio 08/11/2026 08/11/2023 Pneumococcal Vaccine: 65+ Years Completed 09/02/2022, 09/01/2017 HPV (Gardasil) Vaccine [...] Visit Diagnoses Diagnosis Coronary artery disease involving [place] coronary artery of [place] heart without angina pectoris Dyslipidemia, goal LDL below 70 Other and unspecified hyperlipidemia SIXTO (generalized anxiety disorder) Generalized anxiety disorder Symptomatic carotid artery narrowing without infarction, right S/P carotid endarterectomy Other postprocedural status documented in this encounter Care Teams Acting Instructor Relationship Specialty Start Date End Date Sabiha Goetz MD 200 [place] [address] PCP - General Internal Medicine 10/08/21 documented as of this encounter
--- OUTSIDE RECORDS SUMMARY | 2025-01-31 06:38 | External Medical Summary ---
Author Name Unknown Address Unknown Organization K09:[facility] [address] Laboratory Report Ordering Provider Test Date Status THAIS LANDIS 08/12/2024 08:58:48 Final Observation Date Value Abnormality Reference (Units ) Status BUN 08/12/2024 08:58:48 11 6-20 (mg/dL) Final Creatinine 08/12/2024 08:58:48 0.8 0.5-1.0 (mg/dL) Final Glomerular filtration rate/1.73 sq M.predicted [Volume Rate/Area] in Serum, Plasma or Blood by Creatinine-based formula (CKD-EPI) 08/12/2024 08:58:48 81 >=60 (mL/min) Final eGFR is calculated based on the CKD-EPI 2020 equation. Sodium 08/12/2024 08:58:48 141 135-146 (m mol/L) Final Potassium 08/12/2024 08:58:48 4.3 3.5-5.1 (m mol/L) Final Cl 08/12/2024 08:58:48 104 98-107 (mm ol/L) Final CO2 08/12/2024 08:58:48 24 22-32 (mmo l/L) Final Anion gap 08/12/2024 08:58:48 13 7-15 (mmol /L) Final Glucose 08/12/2024 08:58:48 108 70-120 (mg /dL) Final Calcium 08/12/2024 08:58:48 9.2 8.4-10.2 ( mg/dL) Final Performing Location [facility] [place] [address]
--- OUTSIDE RECORDS SUMMARY | 2025-01-31 06:38 | External Medical Summary | Summary of Care ---
Author Name Unknown Organization [facility] Address [address] [place] [address] Phone [phone] Care Team Providers Care Endbander Name Role Phone Kia Goetz MD Primary Care Provider [phone] Reason for Visit * Reason Comments eRx-Medication Refill Encounter Details Date Type Department Care Team (Late st Contact Info) Description 10/09/2024 Refill General Internal Medicine [facility] 200 [facility] [place] [address] Kia Goetz MD 200 [place] [address] HTN, goal below 140/80; Hypotension due to drugs Allergies Active Allergy Reactions Criticality Noted Date Comments Mometasone Furoate 01/08/2022 Blisters sides of mouth Duloxetine Hcl Low 10/08/2021 Not allergic, just doesn't work Levofloxacin High 10/08/2021 Becomes deathly ill documented as of this encounter (statuses as of 10/11/2024) Medications ZyrTEC Allergy 10 MG Oral Capsule (Cetirizine HCl) Take 1 Capsule by mouth in the morning. Active Famotidine 20 MG Oral Tablet (Pepcid) Take 1 Tablet by mouth 2 times a day as needed for Heartburn. -uses 2/wk 10/08/20 21 Active Aspirin 325 MG Oral TabletIndications: Coronary artery disease involving [place] coronary artery of [place] heart without angina pectoris,Hx of CABG,S/P carotid [...] Tablet Sublingual (Nitrostat)Indicat ions:Coronary artery disease involving [place] coronary artery of [place] heart without angina pectoris Place 1 Tablet under the tongue as needed for Pain, Chest. May repeat 3 times. If chest pain continues, call 911. 25 Tablet 08/11/20 23 Active Vitamin D-3 25 MCG (1000 UT) Oral CapsuleIndications :Longitudinal ridging of nail,Vitamin D insufficiency 1 capsule daily--inc 02/10/2024 02/10/20 24 Active Ezetimibe 10 MG Oral Tablet (Zetia)Indications :Coronary artery disease involving [place] coronary artery of [place] heart without angina pectoris,Dyslipide bryanna, goal LDL below 70 TAKE 1 TABLET BY MOUTH EVERY DAY IN THE MORNING 90 Tablet 3 03/10/20 24 Active Metoprolol Succinate ER 25 MG Oral Tablet Extended Release 24 Hour (toPROL XL)Indications:Cor onary artery disease involving [place] coronary artery of [place] heart without angina pectoris TAKE 1 TABLET [...] Oral Tablet (Lipitor)Indicatio ns:Coronary artery disease involving [place] coronary artery of [place] heart without angina pectoris,Dyslipide bryanna, goal LDL below 70 TAKE 1 TABLET BY MOUTH EVERY DAY IN THE MORNING 90 Tablet 3 09/15/20 24 Active LORazepam 0.5 MG Oral Tablet (Ativan)Indication s:SIXTO (generalized anxiety disorder),Symptoma tic carotid artery narrowing without infarction, right,S/P carotid endarterectomy TAKE 1/2 TAB BY MOUTH IN THE MORNING AND EVENING FOR ANXIETY 30 Tablet 09/15/20 24 Active documented as of this encounter (statuses as of 10/11/2024) Active Problems Problem Noted Date Diagnosed Date [...] RT arm Coronary artery disease invo lving [place] coronary artery of [place] heart without angina pectoris 10/08/2021 Hx of [...] as of this encounter (statuses as of 10/11/2024) Resolved Problems Problem Noted Date Diagnosed Date Resolved Date Bilateral carotid artery stenosis 10/22/2021 08/11/2023 COPD, severity to be determined 10/08/2021 01/01/2023 Overview: Per COPD GOLD Classification documented as of this encounter (statuses as of 10/11/2024) Immunizations Name Administration Dates Next Due COVID-19 mRNA, LNP-s, No Pre serve, 2-Dose Series (Moderna) 01/23/2021,12/28/2020 Pneumococcal Conjugate Vacci ne, 20-valent ([id number]) 09/02/2022 Pneumococcal Polysaccharide PPV23 (Pneumovax) 09/01/2017 Seasonal [...] encounter Miscellaneous Notes * Telephone Encounter - Amadou Jerez [facility] - 10/11/2024 11:12 AM EST Refused Prescriptions: Disp Refills Ramipril 2.5 MG Oral Capsule (Altace) 30 Cap*1 Sig: TAKE 1 CAPSULE BY MOUTH AT BEDTIME. 06/07/24(NOTED ALDACTONE DC 07/05/2024)[facility]: [facility] Course of treatment complete documented in this encounter Plan of Treatment Upcoming Encounters Date Type Department Care Team (Late st Contact Info) Description 11/15/2024 3:00 PM EST [facility] [address] [place] [address] Kia Goetz MD [address] [place] [address] 01/03/2025 11:00 AM EDT Imaging Vascular Lab, [facility] [address] [place] [address] 01/12/2025 11:10 AM EDT Office Visit Vascular Surgery, [facility] 132 [facility] [place] [address] Servando Rees MD [address] [facility] [place] [address] Health Maintenance Due Date Last Done Comments DISCUSS TOBACCO CESSATION (REFER TO SMARTSET #6657) 1945 Alpha-1 Antitrypsin 1965 Hepatitis C Screening [...] as of this encounter Visit Diagnoses Diagnosis HTN, goal below 140/80 Unspecified essential hypertension Hypotension due to drugs Other iatrogenic hypotension documented in this encounter Care Teams Endbander Relationship Specialty Start Date End Date Kia Goetz MD 200 [facility] [place] [address] PCP - General Internal Medicine 10/08/21 documented as of this encounter
--- OUTSIDE RECORDS SUMMARY | 2025-01-31 06:38 | External Medical Summary ---
Author Name Unknown Address Unknown Organization K01:[facility] [place] [address] [facility] [address] Laboratory Report Ordering Provider Test Date Status THAIS LANDIS 08/12/2024 08:58:48 Final Observation Date Value Abnormality Reference (Units ) Status HbA1C 08/12/2024 08:58:48 5.8 Above high normal 4. 0-5.6 (%) Final The use of HbA1c to monitor glycemic status is based on normal hemoglobin and HbA composition. This test should not be used in patients with abnormal hemoglobin that affects the half life of the red blood cell or the in vivo glycation rates. Glucose, estimated average 08/12/2024 08:58:48 120 <126 (mg/dL) Final Performing Location [facility] [place] [address] [facility] [address]
--- OUTSIDE RECORDS SUMMARY | 2025-01-31 06:38 | External Medical Summary | Summary of Care ---
Author Name Unknown Organization [facility] Address [address] [facility] [place] [address] Phone [phone] Care Team Providers Care Fish House Worker Name Role Phone Kia Goetz MD Primary Care Provider Reason for Visit * Reason Onset Date Comments Medication Refill 10/04/2024 Encounter Details Date Type Department Care Team (Late st Contact Info) Description 10/04/2024 Refill General Internal Medicine [facility] [address] [facility] [place] [address] Kia Goetz MD 200 [place] [address] Tobacco use disorder; COPD, group A, by GOLD 2017 classification (HCC); Abnormal lung sounds Allergies Active Allergy Reactions Criticality Noted Date Comments Mometasone Furoate 01/08/2022 Blisters sides of mouth Duloxetine Hcl Low 10/08/2021 Not allergic, just doesn't work Levofloxacin High 10/08/2021 Becomes deathly ill documented as of this encounter (statuses as of 10/05/2024) Medications ZyrTEC Allergy 10 MG Oral Capsule (Cetirizine HCl) Take 1 Capsule by mouth in the morning. Active Famotidine 20 MG Oral Tablet (Pepcid) Take 1 Tablet by mouth 2 times a day as needed for Heartburn. -uses 2/wk 10/08/20 21 Active Aspirin 325 MG Oral TabletIndications: Coronary artery disease involving [place] coronary artery of sun'aq heart without angina pectoris,Hx of CABG,S/P carotid [...] Tablet Sublingual (Nitrostat)Indicat ions:Coronary artery disease involving [place] coronary artery of sun'aq heart without angina pectoris Place 1 Tablet under the tongue as needed for Pain, Chest. May repeat 3 times. If chest pain continues, call 911. 25 Tablet 08/11/20 23 Active Vitamin D-3 25 MCG (1000 UT) Oral CapsuleIndications :Longitudinal ridging of nail,Vitamin D insufficiency 1 capsule daily--inc 02/10/2024 02/10/20 24 Active Ezetimibe 10 MG Oral Tablet (Zetia)Indications :Coronary artery disease involving sun'[place] coronary artery of sun'aq heart without angina pectoris,Dyslipide bryanna, goal LDL below 70 TAKE 1 TABLET BY MOUTH EVERY DAY IN THE MORNING 90 Tablet 3 03/10/20 24 Active Metoprolol Succinate ER 25 MG Oral Tablet Extended Release 24 Hour (toPROL XL)Indications:Cor onary artery disease involving [place] coronary artery of sun'aq heart without angina pectoris TAKE 1 TABLET [...] Information Patient not taking.Reported on 08/11/2024 Reyna Harrison 100-62.5-25 MCG/ACT Aerosol Powder Breath ActivatedIndicatio ns:Tobacco use disorder,COPD, group A, by GOLD 2017 classification ([facility]),Abnormal lung sounds INHALE 1 PUFF [...] Oral Tablet (Lipitor)Indicatio ns:Coronary artery disease involving [place] coronary artery of sun'aq heart without angina pectoris,Dyslipide bryanna, goal LDL [...] as of this encounter (statuses as of 10/05/2024) Active Problems Problem Noted Date Diagnosed Date [...] RT arm Coronary artery disease invo lving sun'aq coronary artery of sun'aq heart without angina pectoris 10/08/2021 Hx of [...] as of this encounter (statuses as of 10/05/2024) Resolved Problems Problem Noted Date Diagnosed Date Resolved Date Bilateral carotid artery stenosis 10/22/2021 08/11/2023 COPD, severity to be determined 10/08/2021 01/01/2023 Overview: Per COPD GOLD Classification documented as of this encounter (statuses as of 10/05/2024) Immunizations Name Administration Dates Next Due COVID-19 mRNA, LNP-s, No Pre serve, 2-Dose Series (Moderna) 01/23/2021,12/28/2020 Pneumococcal Conjugate Vacci ne, 20-valent ([id number]) 09/02/2022 Pneumococcal Polysaccharide PPV23 (Pneumovax) 09/01/2017 Seasonal [...] encounter Miscellaneous Notes * Telephone Encounter - Tatianna Saldaña RPh - 10/05/2024 4:28 PM ESTRefused Prescriptions: Disp Refills Trelegy Ellipta 100-62.5-25 MCG/ACT Aeroso*60 Each5 Sig: Inhale1 Puff by mouth in the morning. -from 08/11/2023.Refused By: JULY SALDAÑANReason for Refusal: Too soon Electronically signed by Tatianna Saldaña [facility] at 10/05/2024 4:28 PM EST documented in this encounter Plan of Treatment Upcoming Encounters Date Type Department Care Team (Late st Contact Info) Description 11/15/2024 3:00 PM EST Office Visit General Internal Medicine [facility] [address] [place], [place] [address] Kia Goetz MD [address] [place] [address] 12/09/2024 9:30 AM EST Office Visit Cardiology, [facility] [address] [address] Trupti Sage PA-C [address] [place] [address] 01/03/2025 11:00 AM EDT Imaging Vascular Lab, [facility] 2nd Floor, [place] [address] [facility] [place] [address] 01/12/2025 11:10 AM EDT Office Visit Vascular Surgery, [facility] [address] [facility] [place] [address] Servando Rees MD [address] [facility] [place] [address] Health Maintenance Due Date Last Done Comments DISCUSS TOBACCO CESSATION (REFER TO SMARTSET #329) 1945 Alpha-1 Antitrypsin 1965 Hepatitis C Screening [...] as of this encounter Visit Diagnoses Diagnosis Tobacco use disorder COPD, group A, by GOLD 2017 classification (HCC) Abnormal lung sounds Abnormal chest sounds documented in this encounter Care Teams Fish House Worker Relationship Specialty Start Date End Date Kia Goetz MD [address] [facility] [place] [address] PCP - General Internal Medicine 10/08/21 documented as of this encounter
--- OUTSIDE RECORDS SUMMARY | 2025-01-31 06:38 | External Medical Summary ---
Author Name Unknown Address Unknown Organization K09:[facility] [place] [address] Laboratory Report Ordering Provider Test Date Status THAIS LANDIS 08/12/2024 08:58:48 Final Observation Date Value Abnormality Reference (Units ) Status Albumin 08/12/2024 08:58:48 4.2 3.8-5.0 (g/dL) Final AST (Aspartate aminotransferase) 08/12/2024 08:58:48 21 10-35 (U/L) Final Alk Phos 08/12/2024 08:58:48 141 Above high normal 35-130 (U/L) Final ALT (Alanine aminotransferase) 08/12/2024 08:58:48 23 10-35 (U/L) Final Bilirubin, Total 08/12/2024 08:58:48 0.4 <=1.2 (mg/dL) Final Bilirubin, Direct 08/12/2024 08:58:48 <0.2 0.0-0.3 (mg/dL) Final Protein 08/12/2024 08:58:48 6.2 6.0-8.3 (g/dL) Final Performing Location [facility] [place] [address]
--- OUTSIDE RECORDS SUMMARY | 2025-01-31 06:38 | External Medical Summary ---
Author Name Unknown Address Unknown Organization K09:[facility] [place] [address] Laboratory Report Ordering Provider Test Date Status THAIS LANDIS 08/12/2024 08:58:48 Final Observation Date Value Abnormality Reference (Units ) Status WBC, Total 08/12/2024 08:58:48 8.10 4.00-10.8 0 (K/uL) Final RBC 08/12/2024 08:58:48 4.63 3.85-5.15 (M/uL) Final Hemoglobin 08/12/2024 08:58:48 14.2 12.0-15.3 (g/dL) Final HCT 08/12/2024 08:58:48 44.2 36.0-45.2 (%) Final MCV 08/12/2024 08:58:48 95.5 81.5-97.5 (fL) Final MCH 08/12/2024 08:58:48 30.7 27.0-34.0 (pg) Final MCHC 08/12/2024 08:58:48 32.1 32.0-36.0 (g/dL) Final RDW 08/12/2024 08:58:48 14.3 11.5-15.5 (%) Final Platelets 08/12/2024 08:58:48 248 140-400 (K /uL) Final MPV 08/12/2024 08:58:48 10.4 6.6-11.1 ( fL) Final Performing Location [facility] [place] [address]
--- OUTSIDE RECORDS SUMMARY | 2025-01-31 06:38 | External Medical Summary ---
Author Name Unknown Address Unknown Organization K01:[facility] [place] - [address] [place] [address] Laboratory Report Ordering Provider Test Date Status THAIS LANDIS 08/12/2024 08:58:48 Final Deficient: <20 ng/mL
Ins ufficient: 20-29 ng/mL
Recommended/Optimum:30-50 ng/mL

Vitamin D intoxication is rare. If suspicious of Vitamin D toxicity, evaluation of serum Calcium and PTH is recommended. Observation Date Value Abnormality Reference (Units ) Status 25-OH Vitamin D total 08/12/2024 08:58:48 26 >19 (ng/mL) Final Performing Location [facility] [place] - [address] [place] [address]
--- OUTSIDE RECORDS SUMMARY | 2025-01-31 06:38 | External Medical Summary | Summary of Care ---
Author Name Unknown Organization [facility] Address [address] [place] [address] Phone [phone] Care Team Providers Care Entry Level Programmer Name Role Phone Sabiha Goetz MD Primary Care Provider [phone] Reason for Visit * Reason Comments eRx-Medication Refill Encounter Details Date Type Department Care Team (Late st Contact Info) Description 09/14/2024 Refill General Internal Medicine [facility] 200 [facility] [place] [address] Sabiha Goetz MD 200 [place] [address] Coronary artery disease involving [place] coronary artery of [place] heart without angina pectoris; Dyslipidemia, goal LDL [...] MG Oral TabletIndications :Coronary artery disease involving [place] coronary artery of [place] heart without angina pectoris,Hx of CABG,S/P carotid [...] Tablet Sublingual (Nitrostat)Indica tions:Coronary artery disease involving [place] coronary artery of [place] heart without angina pectoris Place 1 Tablet under the tongue as needed for Pain, Chest. May repeat 3 times. If chest pain continues, call 911. 25 Tablet 023 Active Vitamin D-3 25 MCG (1000 UT) Oral CapsuleIndication s:Longitudinal ridging of nail,Vitamin D insufficiency 1 capsule daily--inc 02/10/2024 024 Active Ezetimibe 10 MG Oral Tablet (Zetia)Indication s:Coronary artery disease involving [place] coronary artery of [place] heart without angina pectoris,Dyslipid emia, goal LDL below 70 TAKE 1 TABLET BY MOUTH EVERY DAY IN THE MORNING 90 Tablet 3 024 Active Metoprolol Succinate ER 25 MG Oral Tablet Extended Release 24 Hour (toPROL XL)Indications:Co ronary artery disease involving [place] coronary artery of [place] heart without angina pectoris TAKE 1 TABLET [...] ns:COPD, group A, by GOLD 2017 classification ([facility]),Tobacco use disorder Inhale 2 Puffs [...] A, by GOLD 2017 classification ([facility]),Abnormal lung sounds INHALE 1 PUFF [...] Oral Tablet (Lipitor)Indicati ons:Coronary artery disease involving [place] coronary artery of [place] heart without angina pectoris,Dyslipid emia, goal LDL [...] Oral Tablet (Lipitor)Indicati ons:Coronary artery disease involving [place] coronary artery of [place] heart without angina pectoris,Dyslipid emia, goal LDL [...] RT arm Coronary artery disease invo lving [place] coronary artery of [place] heart without angina pectoris 10/08/2021 Hx of [...] (Moderna) 01/23/2021,12/28/2020 Pneumococcal Conjugate Vacci ne, 20-valent ([id number]) 09/02/2022 Pneumococcal Polysaccharide PPV23 (Pneumovax) 09/01/2017 Seasonal [...] 1/2 TAB BY MOUTH IN THE MORNING ANDEVENING FOR ANXIETYAuthorizing Provider: SABIHA GOETZ * Telephone Encounter - Sabiha Goetz MD - 09/15/2024 4:29 PM EST "I have reviewed the patient's controlled substance dispensing history in the Prescription Drug Monitoring Program in compliance with the [place] regulations before prescribing a controlled substance." Done Pt cancelled appt neurology and neuropsychology--to reschedule. * Telephone Encounter - Todd Florian [facility] - 09/15/2024 2:29 PM ESTPending [...] FLORIAN * Telephone Encounter - Todd Florian [facility] - 09/15/2024 2:28 PM EST [...] is due for refill: 09/09/2024 Pharmacy: [id number] [facility] Is this request for a controlled substance? Yes and Urine Drug Screen Not completed Toxicology results: No results found for this or any previous visit. Please approve if appropriate. Thanks, Todd Florian Pharm.D. Clinical Pharmacist [facility] ([facility]) [phone] 09/15/2024, 2:29 PM documented in this encounter Plan of Treatment Upcoming Encounters Date Type Department Care Team (Late st Contact Info) Description 11/15/2024 3:00 PM EST Office Visit General Internal Medicine [facility] 200 [facility] [place] [address] [facility] [address] [facility] [address] 12/09/2024 9:30 AM EST Office Visit Cardiology, [facility] [address] [facility] [place] [address] Trupti Sage, PA-Cathy [address] [facility] [place] [address] 01/03/2025 11:00 AM EDT [facility] [address] [place] [address] 01/12/2025 11:10 AM EDT Office Visit Vascular Surgery, [facility] [address] [facility] [place] [address] Servando Rees MD [address] [place] [address] Health Maintenance Due Date Last Done Comments DISCUSS TOBACCO CESSATION (REFER TO SMARTSET #1939) 1945 Alpha-1 Antitrypsin 1965 Hepatitis C Screening [...] Visit Diagnoses Diagnosis Coronary artery disease involving [place] coronary artery of [place] heart without angina pectoris Dyslipidemia, goal LDL below 70 Other and unspecified hyperlipidemia SIXTO (generalized anxiety disorder) Generalized anxiety disorder Symptomatic carotid artery narrowing without infarction, right S/P carotid endarterectomy Other postprocedural status documented in this encounter Care Teams Entry Level Programmer Relationship Specialty Start Date End Date Sabiha Goetz MD [address] [place] [address] PCP - General Internal Medicine 10/08/21 documented as of this encounter
--- OUTSIDE RECORDS SUMMARY | 2025-01-31 06:38 | External Medical Summary | Summary of Care ---
Author Name Unknown Organization [facility] Address [address] [address] Phone [phone] Care Team Providers Care Solar Development Engineer Name Role Phone Kia Goetz MD Primary Care Provider [phone] Reason for Visit * Reason Comments Outpatient Testing Encounter Details Date Type Department Care Team (Late st Contact Info) Description 08/12/2024 9:00 AM EDT [facility] [address] [place] [phone] [facility] [address] [place] [id number] Coronary artery disease involving moapa coronary artery of moapa heart without angina pectoris; HTN, goal below 140/80; Dyslipidemia, goal LDL below 70; Elevated serum alkaline phosphatase level; Prediabetes; Longitudinal ridging of nail; Vitamin D insufficiency Allergies Active Allergy Reactions Criticality Noted Date Comments Mometasone Furoate 01/08/2022 Blisters sides of mouth Duloxetine Hcl Low 10/08/2021 Not allergic, just doesn't work Levofloxacin High 10/08/2021 Becomes deathly ill documented as of this encounter (statuses as of 08/12/2024) Medications Medication Sig Dispensed Refills Start Date End Date Status ZyrTEC Allergy 10 MG Oral Capsule (Cetirizine HCl) Take 1 Capsule by mouth in the morning. Active Famotidine 20 MG Oral Tablet (Pepcid) Take 1 Tablet by mouth 2 times a day as needed for Heartburn. -uses 2/wk 10/08/2021 Active Aspirin 325 MG Oral TabletIndications:Co ronary artery disease involving moapa coronary artery of moapa heart without angina pectoris,Hx of CABG,S/P carotid endarterectomy Take 1 Tablet by mouth in the morning. 1 Tablet 01/08/2022 Active Acetaminophen 500 MG Oral Tablet (Tylenol)Indications :Headache, unspecified headache type Take by mouth 2 Tablets as needed in the morning AND 2 Tablets as needed at noon AND 2 Tablets as needed in the evening (headache). 100 Tablet 01/08/2022 Active Nitroglycerin 0.4 MG Sublingual Tablet Sublingual (Nitrostat)Indicatio ns:Coronary artery disease involving moapa coronary artery of moapa heart without angina pectoris Place 1 Tablet under the tongue as needed for Pain, Chest. May repeat 3 times. If chest pain continues, call 911. 25 Tablet 08/11/2023 Active Atorvastatin Calcium 40 MG Oral Tablet (Lipitor)Indications :Coronary artery disease involving moapa coronary artery of moapa heart without angina pectoris,Dyslipidemi a, goal LDL below 70 TAKE 1 TABLET BY MOUTH EVERY DAY IN THE MORNING 90 Tablet 3 11/04/2023 Active Vitamin D-3 25 MCG (1000 UT) Oral CapsuleIndications:L ongitudinal ridging of nail,Vitamin D insufficiency 1 capsule daily--inc 02/10/2024 02/10/2024 Active Ezetimibe 10 MG Oral Tablet (Zetia)Indications:C oronary artery disease involving moapa coronary artery of moapa heart without angina pectoris,Dyslipidemi a, goal LDL below 70 TAKE 1 TABLET BY MOUTH EVERY DAY IN THE MORNING 90 Tablet 3 03/10/2024 Active Metoprolol Succinate ER 25 MG Oral Tablet Extended Release 24 Hour (toPROL XL)Indications:Coron ruperto artery disease involving moapa coronary artery of moapa heart without angina pectoris TAKE 1 TABLET BY MOUTH EVERY DAY IN THE MORNING 90 Tablet 3 05/01/2024 Active Butalbital-Acetamino phen 50-325 MG Oral TabletIndications:Oumou mbar degenerative disc disease,Chronic neck and back pain Take 1 Tablet by mouth daily as needed for Pain, Moderate or Pain, Severe (neck pain). 30 Tablet 05/10/2024 Active Ventolin HFA 108 (90 Base) MCG/ACT Inhalation Aerosol SolutionIndications: COPD, group A, by GOLD 2017 classification (HCC),Tobacco use disorder Inhale 2 Puffs by mouth every 4 hours as needed for Wheezing. 18 g 1 05/27/2024 Active HYDROcodone-Acetamin ophen 5-325 MG Oral TabletIndications:S/ P wisdom tooth extraction,Pain in gums Take 1 Tablet by mouth every 8 hours as needed for Pain, Moderate (tooth pain sp extraction 05/28/24). 21 Tablet 06/07/2024 Active Additional Information Patient not taking.Reported on 08/11/2024 Trelegy Ellipta 100-62.5-25 MCG/ACT Aerosol Powder Breath ActivatedIndications :Tobacco use disorder,COPD, group A, by GOLD 2017 classification ([facility]),Abnormal lung sounds INHALE 1 PUFF BY MOUTH IN THE MORNING. -FROM 08/11/2023. 60 Each 5 07/06/2024 Active LORazepam 0.5 MG Oral Tablet (Ativan)Indications: SIXTO (generalized anxiety disorder),Symptomati c carotid artery narrowing without infarction, right,S/P carotid endarterectomy TAKE 1/2 TAB BY MOUTH IN THE MORNING AND EVENING FOR ANXIETY 30 Tablet 08/11/2024 Active Mirtazapine 7.5 MG Oral Tablet (Remeron)Indications :Adjustment disorder with depressed mood,Caregiver stress,Adjustment disorder with mixed anxiety and depressed mood,Loss of appetite for more than 2 weeks Take 1 Tablet by mouth at bedtime. 30 Tablet 08/11/2024 Active documented as of this encounter (statuses as of 08/12/2024) Active Problems Problem Noted Date Diagnosed Date Stenosis of extracranial carotid artery, right 1 HTN, goal below 140/80 08/11/2024 Caregiver stress 06/22/2024 Symptomatic stenosis of righ t carotid artery without infarction 05/19/2024 Carotid artery aneurysm 05/19/2024 COPD, group A, by GOLD 2017 classification 12/30 Overview: Per COPD GOLD Classification Occlusion of left subclavian artery 01/08/2022 Overview: All BP to be in RT arm Coronary artery disease invo lving moapa coronary artery of moapa heart without angina pectoris 10/08/2021 Hx of CABG 10/08/2021 Overview: 2015 PVD (peripheral vascular disease) with claudicat ion 10/08/2021 History of right-sided carotid endarterectomy Overview: Rt 2016 Tobacco use disorder 10/08/2021 Lumbar degenerative disc disease 10/08/2021 History of lumbar laminectomy 10/08/2021 Overview: 12/2014 in [place] Dyslipidemia, goal LDL below 70 10/08/2021 Seasonal allergic rhinitis due to pollen 021 Adjustment disorder with mixed anxiety and depre ssed mood 10/08/2021 Prediabetes 10/08/2021 SIXTO (generalized anxiety disorder) 10/08/2021 Ocular migraine 10/08/2021 documented as of this encounter (statuses as of 08/12/2024) Resolved Problems Problem Noted Date Diagnosed Date Resolved Date Bilateral carotid artery stenosis 10/22/2021 08/11/2023 COPD, severity to be determined 10/08/2021 01/01/2023 Overview: Per COPD GOLD Classification documented as of this encounter (statuses as of 08/12/2024) Immunizations Name Administration Dates Next Due COVID-19 mRNA, LNP-s, No Pre serve, 2-Dose Series (Moderna) 01/23/2021,12/28/2020 Pneumococcal Conjugate Vacci ne, 20-valent ([id number]) 09/02/2022 Pneumococcal Polysaccharide PPV23 (Pneumovax) 09/01/2017 Seasonal [...] years and over) Not on file 04/06/2024 Sex and Gender Information Value Date Recorded Sex Assigned at Not on file Gender Identity Not on file Sexual Orientation Not on file Job Start Date Occupation Industry Not on file Not on file Not on file documented as of this encounter Plan of Treatment Upcoming Encounters Date Type Department Care Team (Late st Contact Info) Description 08/16/2024 2:00 PM EDT NeuroDiagnostic Study Neurophysiology [facility] [place] [address] [place] [address] [address] Sp, Neurophys Tech [address] [place] [address] [id number] 08/23/2024 2:00 PM EST Cardiac Studies Cardiac Studies, [facility] [address] [facility] [place] [address] 08/24/2024 11:00 AM EST Office Visit Neurology [facility] [place] [address] [place] [address] [address] Amada Figueroa [facility]-C [address] [facility] [place] [id number] 08/25/2024 2:00 PM EST Nurse Only Ancillary [facility] [place] [address] [place] [address] [address] Nurse, Int Med [address] [place] [address] 11/15/2024 3:00 PM EST Office Visit General Internal Medicine [facility] [place] [address] [place] [address] [address] Kia Goetz MD [address] [place] [address] [address] 12/09/2024 9:30 AM EST Office Visit Cardiology, [facility] [address] [place] [address] Trupti Sage PA-C [address] [place] [address] 01/03/2025 11:00 AM EDT Imaging Vascular Lab, [facility] II 2nd Floor, [place] [address] [place] [address] 01/12/2025 11:10 AM EDT Office Visit Vascular Surgery, [facility] [address] [place] [id number] Servando Rees MD [address] [place] [address] Pending Results Name Type Priority Associated Diagnoses Date /Time CBC WITH WBC DIFFERENTIAL Lab Routine Coronary artery disease involving moapa coronary artery of moapa heart without angina pectoris 08/12/2024 8:58 AM EDT BASIC METABOLIC PANEL Lab Routine Coronary artery disease involving moapa coronary artery of moapa heart without angina pectoris HTN, goal below 140/80 08/12/2024 8:58 AM EDT HEPATIC FUNCTION PANEL Lab Routine Coronary artery disease involving moapa coronary artery of moapa heart without angina pectoris Dyslipidemia, goal LDL below 70 Elevated serum alkaline phosphatase level 08/12/2024 8:58 AM EDT LIPID PANEL WITH DIRECT LDL IF TG IS HIGH Lab Routine Coronary artery disease involving moapa coronary artery of moapa heart without angina pectoris Dyslipidemia, goal LDL below 70 08/12/2024 8:58 AM EDT HEMOGLOBIN A1C Lab Routine Prediabetes 08/12/2024 8:58 AM EDT 25-HYDROXY VITAMIN D Lab Routine Longitudinal ridging of nail Vitamin D insufficiency 08/12/2024 8:58 AM EDT CBC Lab Routine Coronary artery disease involving moapa coronary artery of moapa heart without angina pectoris 08/12/2024 8:58 AM EDT DIFFERENTIAL, AUTOMATED Lab Routine Coronary artery disease involving moapa coronary artery of moapa heart without angina pectoris 08/12/2024 8:58 AM EDT Health Maintenance Due Date Last Done Comments DISCUSS TOBACCO CESSATION (REFER TO [employer] #[id number]) 1945 Alpha-1 Antitrypsin 1965 Hepatitis C Screening [...] tponed from 1997 (Patient Declined After Education) HbA1c 02/09/2025 02/10/2024, 07/21, 03/06/2023, Additional history exists GFR 05/19/2025 05/19/2024, 03/20, 02/10/2024, Additional history exists O2 ASSESSMENT COMPLETED IN PAST YEAR FOR COPD 07/05/2025 07/05/2024 Albumin/Creatinine Ratio 08/11/2026 08/11/2023 Pneumococcal Vaccine: 65+ [...] Visit Diagnoses Diagnosis Coronary artery disease involving moapa coronary artery of moapa heart without angina pectoris HTN, goal below 140/80 Unspecified essential hypertension Dyslipidemia, goal LDL below 70 Other and unspecified hyperlipidemia Elevated serum alkaline phosphatase level Other nonspecific abnormal serum enzyme levels Prediabetes Other abnormal glucose Longitudinal ridging of nail Vitamin D insufficiency Unspecified vitamin D deficiency documented in this encounter Care Teams Solar Development Engineer Relationship Specialty Start Date End Date Kia Goetz MD [address] [place] [address] PCP - General Internal Medicine 10/08/21 documented as of this encounter
--- OUTSIDE RECORDS SUMMARY | 2025-01-31 06:38 | External Medical Summary | Summary of Care ---
Author Name Unknown Organization [facility] Address [address] [place] [address] Phone [phone] Care Team Providers Care Child Monitor Name Role Phone Kia Goetz MD Primary Care Provider [phone] Reason for Referral * Evaluate & Treat - Unlimited Visits (Within 10 days (routine)) - Authorized Specialty Diagnoses / Procedures Referred By Contact Referred To Contact Cardiovascular Medicine / Cardiology Diagnoses Coronary artery disease involving tunica-biloxi coronary artery of tunica-biloxi heart without angina pectoris Dyslipidemia, goal LDL below 70 Hx of CABG Paroxysmal SVT (supraventricular tachycardia) (HCC) Paroxysmal VT (HCC) Kia Goetz MD [address] [place] [address] Phone: tel: fax: Referral ID Status Reason Start Date Expiration Date Visits Requested Visits Authorized [id number] Authorized Specialty Services Required [phone] Question Answer Referral Priority Within 10 days (routine) Where should this appointment be scheduled? [facility] To which of the following clinics are you referring your patient? General Cardiology [facility] * Evaluate & Treat - Unlimited Visits (Within 10 days (routine)) - Authorized Specialty Diagnoses / Procedures Referred By Contac t Referred To Contact Neurology Diagnoses Abnormal involuntary movement Shaking Symptomatic carotid artery narrowing without infarction, right History of right-sided carotid endarterectomy Stenosis of extracranial carotid artery, right Ischemia of retina of right eye Kia Goetz MD [address] [place] [address] Phone: tel: fax: Referral ID Status Reason Start Date Expiration Date Visits Requested Visits Authorized [id number] Authorized Specialty Services Required [phone] Question Answer Referral Priority Within 10 days (routine) Where should this appointment be scheduled? [facility] This patient already has care established with Neurology. Do not place this order. Please use Ask A Doc to expedite care. Acknowledge Is this referral being placed for insurance purposes ONLY No, patient needs appointment [facility] NEUROLOGY REFERRAL QUESTIONS Movement Reason for Visit * Reason Comments Re-Check Routine check up Other Patient states her elisha seaman was diagnosed with stomach cancer and liver problems; states he developed C-diff while in the hospital - states she cancelled hervascular surgery, would like to reschedule - states she is having vision problems Medication Discussion Lorazepam and steven min D Encounter Details Date Type Department Care Team (Latest Contact Info) Description 08/11/2024 12:20 PM EDT Office Visit [facility] [place] [address] [facility] [place] [address] Kia Goetz MD [address] [facility] [place] [address] Abnormal involuntary movement*; Shaking; SIXTO (generalized anxiety disorder); Symptomatic carotid artery narrowing without infarction, right; History of right-sided carotid endarterectomy; Tobacco use disorder; Adjustment disorder with depressed mood; Caregiver stress; Adjustment disorder with mixed anxiety and depressed mood; Coronary artery disease involving tunica-biloxi coronary artery of tunica-biloxi heart without angina pectoris; Dyslipidemia, goal LDL below 70; Hx of CABG; Paroxysmal SVT (supraventricular tachycardia) (HCC); Paroxysmal VT (HCC); COPD, group A, by GOLD 2017 classification (HCC); Stenosis of extracranial carotid artery, right; Ischemia of retina of right eye; Loss of appetite for more than 2 weeks; HTN, goal below 140/80 Allergies Active Allergy Reactions Criticality Noted Date Comments Mometasone Furoate 01/08/2022 Blisters sides of mouth Duloxetine Hcl Low 10/08/2021 Not allergic, just doesn't work Levofloxacin High 10/08/2021 Becomes deathly ill documented as of this encounter (statuses as of 08/29/2024) Medications ZyrTEC Allergy 10 MG Oral Capsule (Cetirizine HCl) Take 1 Capsule by mouth in the morning. Active Famotidine 20 MG Oral Tablet (Pepcid) Take 1 Tablet by mouth 2 times a day as needed for Heartburn. -uses 2/wk 021 Active Aspirin 325 MG Oral TabletIndications :Coronary artery disease involving tunica-biloxi coronary artery of tunica-biloxi heart without angina pectoris,Hx of CABG,S/P carotid [...] Tablet Sublingual (Nitrostat)Indica tions:Coronary artery disease involving tunica-biloxi coronary artery of tunica-biloxi heart without angina pectoris Place 1 Tablet under the tongue as needed for Pain, Chest. May repeat 3 times. If chest pain continues, call 911. 25 Tablet 023 Active Atorvastatin Calcium 40 MG Oral Tablet (Lipitor)Indicati ons:Coronary artery disease involving tunica-biloxi coronary artery of tunica-biloxi heart without angina pectoris,Dyslipid emia, goal LDL below 70 TAKE 1 TABLET BY MOUTH EVERY DAY IN THE MORNING 90 Tablet 3 024 Active Vitamin D-3 25 MCG (1000 UT) Oral CapsuleIndication s:Longitudinal ridging of nail,Vitamin D insufficiency 1 capsule daily--inc 02/10/2024 024 Active Ezetimibe 10 MG Oral Tablet (Zetia)Indication s:Coronary artery disease involving tunica-biloxi coronary artery of tunica-biloxi heart without angina pectoris,Dyslipid emia, goal LDL below 70 TAKE 1 TABLET BY MOUTH EVERY DAY IN THE MORNING 90 Tablet 3 024 Active Metoprolol Succinate ER 25 MG Oral Tablet Extended Release 24 Hour (toPROL XL)Indications:Co ronary artery disease involving tunica-biloxi coronary artery of tunica-biloxi heart without angina pectoris TAKE 1 TABLET BY MOUTH EVERY DAY IN THE MORNING 90 Tablet 3 024 Active Butalbital-Acetam inophen 50-325 MG Oral TabletIndications :Lumbar degenerative disc disease,Chronic neck and back pain Take 1 Tablet by mouth daily as needed for Pain, Moderate or Pain, Severe (neck pain). 30 Tablet Active Ventolin HFA 108 (90 Base) MCG/ACT Inhalation Aerosol SolutionIndicatio ns:COPD, group A, by GOLD 2017 classification ([facility]),Tobacco use disorder Inhale 2 Puffs by mouth every 4 hours as needed for Wheezing. 18 g 1 Active HYDROcodone-Aceta minophen 5-325 MG Oral TabletIndications :S/P wisdom tooth extraction,Pain in gums Take 1 Tablet by mouth every 8 hours as needed for Pain, Moderate (tooth pain sp extraction 05/28/24). 21 Tablet Active Additional Information Patient not taking.Reported on 08/11/2024 Trelegy Ellipta 100-62.5-25 MCG/ACT Aerosol Powder Breath ActivatedIndicati ons:Tobacco use disorder,COPD, group A, by GOLD 2017 classification ([facility]),Abnormal lung sounds INHALE 1 PUFF BY MOUTH IN THE MORNING. -FROM 08/11/2023. 60 Each 5 Active Mirtazapine 7.5 MG Oral Tablet (Remeron)Indicati ons:Adjustment disorder with depressed mood,Caregiver stress,Adjustment disorder with mixed anxiety and depressed mood,Loss of appetite for more than 2 weeks Take 1 Tablet by mouth at bedtime. 30 Tablet Active buPROPion HCl ER (SR) 150 MG Oral Tablet Extended Release 12 Hour (Wellbutrin SR)Indications:To bacco use disorder,Adjustme nt disorder with depressed mood 1 tab daily x 3 days then 1 tab in morning and 1 tab 6 hrs later 60 Tablet 2 024 2023 Discontinued(P atient preference/dis continuation) Ramipril 2.5 MG Oral Capsule (Altace)Indicatio ns:HTN, goal below 140/80,Hypotensio n due to drugs Take 1 Capsule by mouth at bedtime. Dec 06/07/24(noted aldactone Dc 07/05/2024) 30 Capsule 1 024 2023 Discontinued(E nd of Procedure) LORazepam 0.5 MG Oral Tablet (Ativan)Indicatio ns:SIXTO (generalized anxiety disorder),Symptom atic carotid artery narrowing without infarction, right,S/P carotid endarterectomy TAKE 1/2 TAB BY MOUTH IN THE MORNING AND EVENING FOR ANXIETY 30 Tablet 024 2023 Discontinued documented as of this encounter (statuses as of 08/29/2024) Active Problems Problem Noted Date Diagnosed Date [...] RT arm Coronary artery disease invo lving tunica-biloxi coronary artery of tunica-biloxi heart without angina pectoris 10/08/2021 Hx of [...] as of this encounter (statuses as of 08/29/2024) Resolved Problems Problem Noted Date Diagnosed Date Resolved Date Bilateral carotid artery stenosis 10/22/2021 08/11/2023 COPD, severity to be determined 10/08/2021 01/01/2023 Overview: Per COPD GOLD Classification documented as of this encounter (statuses as of 08/29/2024) Immunizations Name Administration Dates Next Due COVID-19 mRNA, LNP-s, No Pre serve, 2-Dose Series (Moderna) 01/23/2021,12/28/2020 Pneumococcal Conjugate Vacci ne, 20-valent ([id number]) 09/02/2022 Pneumococcal Polysaccharide PPV23 (Pneumovax) 09/01/2017 Seasonal Influenza, Quadriva lent Hd (Fluzone Hd) 08/11/2023,09/02/2022,10/08/2021 documented as of this encounter Social History Tobacco Use Types Packs/Day Years Used Date Smoking Tobacco: Every Day Cigarettes 2 58 Smokeless Tobacco: Former Tobacco Cessation:Ready to Q uit: No; Counseling Given: No Comments:05/19/24 1 pack daily, declined pamphlet Alcohol Use Standard Drinks/Week Comments [...] Sign Reading Time Taken Comments Blood Pressure 102/72 08/11/2024 12:07 PM EDT Pulse 76 08/11/2024 12:07 PM EDT Temperature 36.9 °C (98.4 °F) 08/11/2024 12:07 PM E DT Respiratory Rate 16 08/11/2024 12:07 PM EDT Oxygen Saturation - - Inhaled Oxygen Concentration - - Weight 59.9 kg (132 lb 1.6 oz) 08/11/2024 12:07 PM EDT Height - - Body Mass Index 24.96 07/05/2024 3:00 PM EDT documented in this encounter Progress Notes * Kia Goetz MD - 08/11/2024 12:23 PM EDT SUBJECTIVE: Clotilde Pope is a 78 year old female. Chief Complaint Patient presents with Re-Check Routine check up Other Patient states her was diagnosed with stomach cancer and liver problems; states he developed C-diff while in the hospital - states she cancelled hervascular surgery, would like to reschedule - states she is having vision problems Medication Discussion Lorazepam and vitamin D HPI: Patient presents today for reg scheduled appt BP Readings from Last 8 Encounters: 08/11/24 102/72 07/05/24 74/62 06/22/24 122/58 06/07/24 94/60 05/19/24 92/60 04/12/24 100/74 04/12/24 110/72 04/01/24 104/70 Wt Readings from Last 10 Encounters: 08/11/24 59.9 kg (132 lb 1.6 oz) 07/05/24 61.4 kg (135 lb 6.4 oz) 06/22/24 61.6 kg (135 lb 14.4 oz) 06/07/24 61.8 kg (136 lb 4.8 oz) 05/19/24 62.7 kg (138 lb 3.2 oz) 04/12/24 64 kg (141 lb 1.6 oz) 04/12/24 63.9 kg (140 lb 12.8 oz) 04/01/24 64 kg (141 lb 1.6 oz) 02/10/24 64.6 kg (142 lb 8 oz) 10/27/23 67.1 kg (148 lb) PMH: HTN,CAD h/o AMI and CABG 04/2015; [...] above medications. 02/10--mood stable 06/12--see hpi 06/22/2024--with daren had bad dreams, discussed wellbutrin Now smoking [...] year with carotid duplex and wilmer at [facility] --has fu 04/02/23-pt cx appt 04/01/24-Patient [...] due to heavily calcified plaque, left carotid uotdtz-20-32% stenosis, retrograde flow in the left vertebral artery may represent proximal stenosis, has known left subclavian stenosis per last vasc notes >ERO-idnhf-uikmqejy arterial occlusive disease, left-mild occlusive disease 04/05/24- CTA head/neck-->no acute findings, intracranial atherosclerotic disease, moderate stenosis of 1 segment left vertebral artery, axzh-bw-vvxkhmqi narrowing right vertebral artery, small outpouching 2-3 mm V4 segment right vertebral artery suspicious for aneurysm, vascular Neurosurgery consultation is advised. Giktjzam-vc-dmtevr stenosis proximal left common carotid artery, severe stenosis of the right common carotid artery, occlusion of the proximal left subclavian artery(known) with possible subclavian steal - no pain/weakness in her left arm -eval vas Dr. Rees 04/12/24 > right common carotid [...] until June, saw her other dentist Dr. Hermoslilo on 04/26/2024 and they expedited the appointment, [...] dizziness/lightheadedness, they discontinuedAldactone. 7 day Zio patch - 7 day Zio patch results. -Underlying rhythm [...] patient marker or diary entries were submitted Recently her had GI bleeding, was diagnosed with stomach cancer, C diff colitis, was at [facility] for rehab, back home now, f/u oncologist. --- She had to cancel her carotid surgery 07/19/24 , message was sent to vascular who advised her tokeep scheduled follow up in December 2024 02/10/24 -A1c remains borderline high at 6 0.2%, LDL slightly above goal at 76, normal ALT, continuecurrent medications, follow strict low-cholesterol diet -elevated alk-phos.;Schedule ultrasound of the liver and await GI evaluation for the same. Had to cx appt [facility];-has GI appt now 06/02/24 08/11/2024--labs due Results for orders placed or performed in visit on 05/19/24 BASIC METABOLIC PANEL Result Value Ref Range BUN 19 6 - 20 mg/dL CREATININE 1.0 0.5 - 1.0 mg/dL EGFR 61 >=60 mL/min SODIUM 139 135 - 146 mmol/L POTASSIUM 5.0 3.5 - 5.1 mmol/L CHLORIDE 104 98 - 107 mmol/L CO2 24 22 - 32 mmol/L ANION GAP 11 7 - 15 mmol/L GLUCOSE 107 70 - 120 mg/dL CALCIUM 9.2 8.4 - 10.2 mg/dL CBC Result Value Ref Range WBC 8.46 4.00 - 10.80 K/uL RBC 4.50 3.85 - 5.15 M/uL HGB 13.7 12.0 - 15.3 g/dL HCT 42.1 36.0 - 45.2 % MCV 93.6 81.5 - 97.5 fL MCH 30.4 27.0 - 34.0 pg MCHC 32.5 32.0 - 36.0 g/dL RDW 15.2 11.5 - 15.5 % PLT 252 140 - 400 K/uL MPV 10.0 6.6 - 11.1 fL DIFFERENTIAL, AUTOMATED Result Value Ref Range WBC 8.46 4.00 - 10.80 K/uL Neutrophils % 72.7 40.0 - 75.0 % Lymphocytes % 17.3 (L) 18.0 - 42.0 % Monocytes % 7.8 1.0 - 11.0 % Eosinophils % 1.8 0.0 - 6.0 % Basophils % 0.4 0.0 - 2.0 % Absolute Neutrophils 6.16 1.80 - 7.70 K/uL Absolute Lymphocytes 1.46 1.00 - 4.80 K/ul Absolute Monocytes 0.66 0.00 - 1.10 K/uL Absolute Eosinophils 0.15 0.00 - 0.70 K/uL Absolute Basophils 0.03 0.00 - 0.20 K/uL Patient Active Problem List Diagnosis Coronary artery disease involving tunica-biloxi coronary artery of tunica-biloxi heart without angina pectoris Hx of CABG PVD (peripheral vascular disease) with claudication ([facility]) S/P carotid endarterectomy Tobacco use disorder Lumbar degenerative disc disease History of lumbar laminectomy Dyslipidemia, goal LDL below 70 Seasonal allergic rhinitis due to pollen Adjustment disorder with depressed mood Prediabetes SIXTO (generalized anxiety disorder) Ocular migraine Occlusion of left subclavian artery COPD, group A, by GOLD 2017 classification ([facility]) Symptomatic stenosis of right carotid artery without infarction Caregiver stress Carotid artery aneurysm ([facility]) Current Outpatient Medications Medication Sig Dispense Refill ZyrTEC Allergy 10 MG Oral Capsule (Cetirizine HCl) Take 1 Capsule by mouth in the morning. Famotidine 20 MG Oral Tablet (Pepcid) Take 1 Tablet by mouth 2 times a day as needed for Heartburn.-uses 2/wk Aspirin 325 MG Oral Tablet Take 1 [...] pain continues, call 911. 25 Tablet 0 Atorvastatin Calcium 40 MG Oral Tablet (Lipitor) TAKE 1 TABLET BY MOUTH EVERY DAY IN THE MORNING 90Tablet 3 Vitamin D-3 25 MCG (1000 UT) Oral Capsule 1 capsule daily--inc 02/10/2024 Ezetimibe 10 MG Oral Tablet (Zetia) TAKE 1 TABLET BY MOUTH EVERY DAY IN THE MORNING 90 Tablet 3 Metoprolol Succinate ER 25 MG Oral Tablet Extended Release 24 Hour (toPROL XL) TAKE 1 TABLET BY MOUTH EVERY DAY IN THE MORNING 90 Tablet 3 Butalbital-Acetaminophen 50-325 MG Oral Tablet Take 1 Tablet by mouth daily as needed for Pain, Moderate or Pain, Severe (neck pain). 30 Tablet 0 Ventolin HFA 108 (90 Base) MCG/ACT Inhalation Aerosol Solution Inhale 2 Puffs by mouth every 4 hours as needed for Wheezing. 18 g 1 Trelegy Ellipta 100-62.5-25 MCG/ACT Aerosol Powder Breath Activated INHALE 1 PUFF BY MOUTH IN THE MORNING. -FROM 08/11/2023. 60 Each 5 Ramipril 2.5 MG Oral Capsule (Altace) Take 1 Capsule by mouth at bedtime. Dec 06/07/24(noted aldactone Dc 07/05/2024) 30 Capsule 1 LORazepam 0.5 MG Oral Tablet (Ativan) TAKE 1/2 TAB BY MOUTH IN THE MORNING AND EVENING FOR ANXIETY 30 Tablet 0 HYDROcodone-Acetaminophen 5-325 MG Oral Tablet Take 1 Tablet by mouth every 8 hours as needed for Pain, Moderate (tooth pain sp extraction 05/28/24). (Patient not taking: Reported on 08/11/2024) 21 Tablet 0 buPROPion HCl ER (SR) 150 MG Oral Tablet Extended Release 12 Hour (Wellbutrin SR) 1 tab daily x 3 days then 1 tab in morning and 1 tab 6 hrs later (Patient not taking: Reported on 08/11/2024) 60 Tablet 2 No current facility-administered medications for this visit. Review of patient's allergies indicates: Allergen Reactions Levaquin [Levofloxacin] Becomes deathly ill Asmanex (120 Metered Doses) [Mometasone Furoate] Blisters sides of mouth Cymbalta [Duloxetine Hcl] Not allergic, just doesn't work OBJECTIVE: BP 102/72 (BP Site: Left Arm, BP Position: Sitting, BP Cuff Size: Regular) | Pulse 76 | Temp 36.9 °C (98.4 °F) (Tympanic) | Resp 16 | Wt 59.9 kg (132 lb 1.6 oz) | BMI 24.96 kg/m² | BSA 1.61 m² PHYSICAL EXAM: General: alert, healthy, no distress, well nourished and well developed Head: Normocephalic, atraumatic Eye Exam: PERRLA, EOMI, Conjunctiva are pink and non-injected, sclera clear Oropharynx: no exudate and no erythema, sl narrow OP with sl large tongue Right mandibular 3rd molar status post extraction, with a mucosal defect seen with tenderness Neck:scar RT, Sergey bruits, supple, no JVD, [...] motor/sensory deficits, gait normal;Neg cerebellar signs ASSESSMENT/PLAN: Abnormal involuntary movement (Primary) - ADULT NEUROLOGY REFERRAL OP - EEG ROUTINE Shaking - ADULT NEUROLOGY REFERRAL OP - EEG ROUTINE SIXTO (generalized anxiety disorder) Symptomatic carotid artery narrowing without infarction, right - ADULT NEUROLOGY REFERRAL OP History of right-sided carotid endarterectomy - ADULT NEUROLOGY REFERRAL OP Tobacco use disorder Adjustment disorder with depressed mood - Mirtazapine 7.5 MG Oral Tablet (Remeron); Take 1 Tablet by mouth at bedtime. Caregiver stress - Mirtazapine 7.5 MG Oral Tablet (Remeron); Take 1 Tablet by mouth at bedtime. Adjustment disorder with mixed anxiety and depressed mood - Mirtazapine 7.5 MG Oral Tablet (Remeron); Take 1 Tablet by mouth at bedtime. Coronary artery disease involving tunica-biloxi coronary artery of tunica-biloxi heart without angina pectoris - CARDIOLOGY REFERRAL OP Dyslipidemia, goal LDL below 70 - CARDIOLOGY REFERRAL OP Hx of CABG - CARDIOLOGY REFERRAL OP Paroxysmal SVT (supraventricular tachycardia) (HCC) - CARDIOLOGY REFERRAL OP Paroxysmal VT (HCC) - CARDIOLOGY REFERRAL OP COPD, group A, by GOLD 2017 classification ([facility]) Stenosis of extracranial carotid artery, right - ADULT NEUROLOGY REFERRAL OP Ischemia of retina of right eye - ADULT NEUROLOGY REFERRAL OP Loss of appetite for more than 2 weeks - Mirtazapine 7.5 MG Oral Tablet (Remeron); Take 1 Tablet by mouth at bedtime. HTN, goal below 140/80 Off aldactone now, Dc ramipril due to low bp, wt loss, nneka f/u cardiology Continue low dose Ativan for anxiety Advised smoking cessation., stopped wellbutrin after 1 mth,c/o shaking spells even off med, get EEG, refer to neuro. Not eating/sleeping well,lost wt ,willing to try mirtazapine Follow Up: Return in about 3 months (around 11/11/2024), or if symptoms worsen or fail to improve, for Return with Physician, Labs Today. | For: Return with Physician, Labs Today | Check-out note: Nurse Bp check 2 wks Nneka card appt and check if echo can be nneka any sooner than 09/02/24 (This note was completed using the dictation [...] with plan of care. Kia Goetz MD 08/11/2024 documented in this encounter Nursing Notes * Paul Kendrick RN - 08/11/2024 12:09 PM EDT Chief Complaint Patient presents with Re-Check Routine check up Other Patient states her was diagnosed with stomach cancer and liver problems; states he developed C-diff while in the hospital - states she cancelled hervascular surgery, would like to reschedule - states she is having vision problems Medication Discussion Lorazepam and vitamin D documented in this encounter Plan of Treatment Upcoming Encounters Date Type Department Care Team (Late st Contact Info) Description 11/15/2024 3:00 PM EST Office Visit General Internal Medicine [facility] [address] [facility] [place] [address] Kia Goetz MD [address] [facility] [place] [address] 12/09/2024 9:30 AM EST Office Visit Cardiology, [facility] [address] [place] [address] Trupti Sage PA-C [address] [facility] [place] [address] 01/03/2025 11:00 AM EDT Imaging Vascular Lab, [facility] 2nd Floor, [place] [address] [place] [address] 01/12/2025 11:10 AM EDT Office Visit Vascular Surgery, [facility] [address] [place] [address] Servando Rees MD [address] [place] [address] Scheduled Orders Name Type Priority Associated Diagnoses Orde r Schedule EEG ROUTINE Procedures Routine Abnormal involuntary movement Shaking Ordered: 08/11/2024 Scheduled Referrals Name Type Priority Associated Diagnoses Orde r Schedule ADULT NEUROLOGY REFERRAL OP Referral Within 10 days (routine) Abnormal involuntary movement Shaking Symptomatic carotid artery narrowing without infarction, right History of right-sided carotid endarterectomy Stenosis of extracranial carotid artery, right Ischemia of retina of right eye Ordered: 08/11/2024 CARDIOLOGY REFERRAL OP Referral Within 10 days (routine) Coronary artery disease involving tunica-biloxi coronary artery of tunica-biloxi heart without angina pectoris Dyslipidemia, goal LDL below 70 Hx of CABG Paroxysmal SVT (supraventricular tachycardia) (HCC) Paroxysmal VT (HCC) Ordered: 08/11/2024 Health Maintenance Due Date Last Done Comments DISCUSS TOBACCO CESSATION (REFER TO SMARTSET #7502) 1945 Alpha-1 Antitrypsin 1965 Hepatitis C Screening [...] FOR COPD 07/05/2025 07/05/2024 GFR 08/12/2025 08/12/2024, /10/2023, 04/01/2024, Additional history exists HbA1c 08/12/2025 08/12/2024, [...] as of this encounter Visit Diagnoses Diagnosis Abnormal involuntary movement- Primary Abnormal involuntary movements Shaking Abnormal involuntary movements SIXTO (generalized anxiety disorder) Generalized anxiety disorder Symptomatic carotid artery narrowing without infarction, right History of right-sided carotid endarterectomy Tobacco use disorder Adjustment disorder with depressed mood Caregiver stress Other health problem within the family Adjustment disorder with mixed anxiety and depressed mood Coronary artery disease involving tunica-biloxi coronary artery of tunica-biloxi heart without angina pectoris Dyslipidemia, goal LDL below 70 Other and unspecified hyperlipidemia Hx of CABG Postsurgical aortocoronary bypass status Paroxysmal SVT (supraventricular tachycardia) (HCC) Paroxysmal supraventricular tachycardia Paroxysmal VT (HCC) Paroxysmal ventricular tachycardia COPD, group A, by GOLD 2017 classification (HCC) Stenosis of extracranial carotid artery, right Ischemia of retina of right eye Loss of appetite for more than 2 weeks HTN, goal below 140/80 Unspecified essential hypertension documented in this encounter Care Teams Child Monitor Relationship Specialty Start Date End Date Kia Goetz MD [address] [facility] [place] [address] PCP - General Internal Medicine 10/08/21 documented as of this encounter"
--- OUTSIDE RECORDS SUMMARY | 2025-01-31 06:38 | External Medical Summary | Summary of Care ---
Author Name Unknown Organization [facility] Address [address] [place] [address] Phone [phone] Care Team Providers Care Coal Gasification Technician Name Role Phone Kia Goetz MD Primary Care Provider [phone] Reason for Visit * Reason Onset Date Comments Test Results Lab 08/18/2024 Encounter Details Date Type Department Care Team (Late st Contact Info) Description 08/18/2024 Telephone General Internal Medicine [facility] [address] [facility] [place] [address] Kia Goetz MD 200 [place] [address] Test Results Lab Allergies Active Allergy Reactions Criticality Noted Date Comments Mometasone Furoate 01/08/2022 Blisters sides of mouth Duloxetine Hcl Low 10/08/2021 Not allergic, just doesn't work Levofloxacin High 10/08/2021 Becomes deathly ill documented as of this encounter (statuses as of 08/30/2024) Medications ZyrTEC Allergy 10 MG Oral Capsule (Cetirizine HCl) Take 1 Capsule by mouth in the morning. Active Famotidine 20 MG Oral Tablet (Pepcid) Take 1 Tablet by mouth 2 times a day as needed for Heartburn. -uses 2/wk 10/08/20 Active Aspirin 325 MG Oral TabletIndications: Coronary artery disease involving [place] coronary artery of [place] heart without angina pectoris,Hx of CABG,S/P carotid [...] Tablet Sublingual (Nitrostat)Indicat ions:Coronary artery disease involving [place] coronary artery of [place] heart without angina pectoris Place 1 Tablet under the tongue as needed for Pain, Chest. May repeat 3 times. If chest pain continues, call 911. 25 Tablet 08/11/20 23 Active Atorvastatin Calcium 40 MG Oral Tablet (Lipitor)Indicatio ns:Coronary artery disease involving [place] coronary artery of [place] heart without angina pectoris,Dyslipide bryanna, goal LDL below 70 TAKE 1 TABLET BY MOUTH EVERY DAY IN THE MORNING 90 Tablet 3 11/04/19 24 Active Vitamin D-3 25 MCG (1000 UT) Oral CapsuleIndications :Longitudinal ridging of nail,Vitamin D insufficiency 1 capsule daily--inc 02/10/2024 02/10/20 24 Active Ezetimibe 10 MG Oral Tablet (Zetia)Indications :Coronary artery disease involving [place] coronary artery of [place] heart without angina pectoris,Dyslipide bryanna, goal LDL below 70 TAKE 1 TABLET BY MOUTH EVERY DAY IN THE MORNING 90 Tablet 3 03/10/20 24 Active Metoprolol Succinate ER 25 MG Oral Tablet Extended Release 24 Hour (toPROL XL)Indications:Cor onary artery disease involving [place] coronary artery of [place] heart without angina pectoris TAKE 1 TABLET [...] A, by GOLD 2017 classification ([facility]),Abnormal lung sounds INHALE 1 PUFF BY MOUTH IN THE MORNING. -FROM 08/11/2023. 60 Each 5 07/06/20 24 Active LORazepam 0.5 MG Oral Tablet (Ativan)Indication s:SIXTO (generalized anxiety disorder),Symptoma tic carotid artery narrowing without infarction, right,S/P carotid endarterectomy TAKE 1/2 TAB BY MOUTH IN THE MORNING AND EVENING FOR ANXIETY 30 Tablet 08/11/20 24 Active Mirtazapine 7.5 MG Oral Tablet (Remeron)Indicatio ns:Adjustment disorder with depressed mood,Caregiver stress,Adjustment disorder with mixed anxiety and depressed mood,Loss of appetite for more than 2 weeks Take 1 Tablet by mouth at bedtime. 30 Tablet 08/11/20 24 Active documented as of this encounter (statuses as of 08/30/2024) Active Problems Problem Noted Date Diagnosed Date [...] RT arm Coronary artery disease invo lving [place] coronary artery of [place] heart without angina pectoris 10/08/2021 Hx of [...] as of this encounter (statuses as of 08/30/2024) Resolved Problems Problem Noted Date Diagnosed Date Resolved Date Bilateral carotid artery stenosis 10/22/2021 08/11/2023 COPD, severity to be determined 10/08/2021 01/01/2023 Overview: Per COPD GOLD Classification documented as of this encounter (statuses as of 08/30/2024) Immunizations Name Administration Dates Next Due COVID-19 mRNA, LNP-s, No Pre serve, 2-Dose Series (Moderna) 01/23/2021,12/28/2020 Pneumococcal Conjugate Vacci ne, 20-valent ([id number]) 09/02/2022 Pneumococcal Polysaccharide PPV23 (Pneumovax) 09/01/2017 Seasonal [...] encounter Miscellaneous Notes * Telephone Encounter - Mindy Abrams LPN - 08/18/2024 4:20 PM EDT Patient is aware and verbalizes understanding. * Telephone Encounter - Liss Dixon MED ASSIST - 08/18/2024 4:08 PM EDT Spoke with he will ask her to return out call. Direct nurses center number provided. * Telephone Encounter - Liss Dixon MED ASSIST - 08/18/2024 4:05 PM EDT ----- Message from Kia Goetz MD sent at 08/16/2024 12:07 AM EDT ----- Lipids at goal, A1c lower at 5.8%(was not eating well recently), LFT with improved alk-phos, normalCBC, BMP, vitamin-D low borderline low at 26--make sure to continue vitamin-D 1000 units daily --next non-fasting labs in 6 months documented in this encounter Plan of Treatment Upcoming Encounters Date Type Department Care Team (Late st Contact Info) Description 11/15/2024 3:00 PM EST Office Visit General Internal Medicine [facility] [place] [address] [place] [address] Kia Goetz MD [address] [place] [address] 12/09/2024 9:30 AM EST Office Visit Cardiology, [facility] 132 [facility] [place] [address] Trupti Sage PA-C 132 [facility] [place] [address] 01/03/2025 11:00 AM EDT Imaging Vascular Lab, [facility] 2nd Floor, [place] 132 [facility] [place] [address] 01/12/2025 11:10 AM EDT Office Visit Vascular Surgery, [facility] [address] [facility] [place] [address] Servando Rees MD [address] [place] [address] Health Maintenance Due Date Last Done Comments DISCUSS TOBACCO CESSATION (REFER TO SMARTSET #3670) 1945 Alpha-1 Antitrypsin 1965 Hepatitis C Screening [...] FOR COPD 07/05/2025 07/05/2024 GFR 08/12/2025 08/12/2024, 073 10/2023, 04/01/2024, Additional history exists HbA1c 08/12/2025 [...] filedocumented as of this encounter Care Teams Coal Gasification Technician Relationship Specialty Start Date End Date Kia Goetz MD [address] [facility] [place] [address] PCP - General Internal Medicine 10/08/21 documented as of this encounter
--- OUTSIDE RECORDS SUMMARY | 2025-01-31 06:38 | External Medical Summary | Summary of Care ---
Author Name Unknown Organization [facility] Address [address] [facility] [place] [address] Phone [phone] Care Team Providers Care Trim Installer Name Role Phone Kia Goetz MD Primary Care Provider [phone] Reason for Visit * Reason Comments eRx-Medication Refill Encounter Details Date Type Department Care Team (Late st Contact Info) Description 08/17/2024 Refill General Internal Medicine [facility] 200 [facility] [place] [address] Kia Goetz MD 200 [place] [address] Adjustment disorder with depressed mood; Caregiver stress; Adjustment disorder with mixed anxiety and depressed mood; Loss of appetite for more than 2 weeks Allergies Active Allergy Reactions Criticality Noted Date Comments Mometasone Furoate 01/08/2022 Blisters sides of mouth Duloxetine Hcl Low 10/08/2021 Not allergic, just doesn't work Levofloxacin High 10/08/2021 Becomes deathly ill documented as of this encounter (statuses as of 08/18/2024) Medications Medication Sig Dispensed Refills Start Date End Date Status ZyrTEC Allergy 10 MG Oral Capsule (Cetirizine HCl) Take 1 Capsule by mouth in the morning. Active Famotidine 20 MG Oral Tablet (Pepcid) Take 1 Tablet by mouth 2 times a day as needed for Heartburn. -uses 2/wk 10/08/2021 Active Aspirin 325 MG Oral TabletIndications:Co ronary artery disease involving [place] coronary artery of [place] heart without angina pectoris,Hx of CABG,S/P carotid [...] Tablet Sublingual (Nitrostat)Indicatio ns:Coronary artery disease involving [place] coronary artery of [place] heart without angina pectoris Place 1 Tablet under the tongue as needed for Pain, Chest. May repeat 3 times. If chest pain continues, call 911. 25 Tablet 08/11/2023 Active Atorvastatin Calcium 40 MG Oral Tablet (Lipitor)Indications :Coronary artery disease involving [place] coronary artery of [place] heart without angina pectoris,Dyslipidemi a, goal LDL below 70 TAKE 1 TABLET BY MOUTH EVERY DAY IN THE MORNING 90 Tablet 3 11/04/2023 Active Vitamin D-3 25 MCG (1000 UT) Oral CapsuleIndications:L ongitudinal ridging of nail,Vitamin D insufficiency 1 capsule daily--inc 02/10/2024 02/10/2024 Active Ezetimibe 10 MG Oral Tablet (Zetia)Indications:C oronary artery disease involving [place] coronary artery of [place] heart without angina pectoris,Dyslipidemi a, goal LDL below 70 TAKE 1 TABLET BY MOUTH EVERY DAY IN THE MORNING 90 Tablet 3 03/10/2024 Active Metoprolol Succinate ER 25 MG Oral Tablet Extended Release 24 Hour (toPROL XL)Indications:Coron ruperto artery disease involving [place] coronary artery of [place] heart without angina pectoris TAKE 1 TABLET [...] 2017 classification ([facility]),Tobacco use disorder Inhale 2 Puffs by mouth every 4 hours as needed for Wheezing. 18 g 1 05/27/2024 Active HYDROcodone-Acetamin ophen 5-325 MG Oral TabletIndications:S/ P wisdom tooth extraction,Pain in gums Take 1 Tablet by mouth every 8 hours as needed for Pain, Moderate (tooth pain sp extraction 05/28/24). 21 Tablet 06/07/2024 Active Additional Information Patient not taking.Reported on 08/11/2024 Ryena Harrison 100-62.5-25 MCG/ACT Aerosol Powder Breath ActivatedIndications :Tobacco use disorder,COPD, group A, by GOLD 2017 classification ([facility]),Abnormal lung sounds INHALE 1 PUFF BY MOUTH [...] as of this encounter (statuses as of 08/18/2024) Active Problems Problem Noted Date Diagnosed Date [...] RT arm Coronary artery disease invo lving [place] coronary artery of [place] heart without angina pectoris 10/08/2021 Hx of [...] as of this encounter (statuses as of 08/18/2024) Resolved Problems Problem Noted Date Diagnosed Date Resolved Date Bilateral carotid artery stenosis 10/22/2021 08/11/2023 COPD, severity to be determined 10/08/2021 01/01/2023 Overview: Per COPD GOLD Classification documented as of this encounter (statuses as of 08/18/2024) Immunizations Name Administration Dates Next Due COVID-19 mRNA, LNP-s, No Pre serve, 2-Dose Series (Moderna) 01/23/2021,12/28/2020 Pneumococcal Conjugate Vacci ne, 20-valent ([id number]) 09/02/2022 Pneumococcal Polysaccharide PPV23 (Pneumovax) 09/01/2017 Seasonal [...] encounter Miscellaneous Notes * Telephone Encounter - Zahra Yanes [facility] - 08/18/2024 12:48 PM EDT Refused Prescriptions: Disp Refills Mirtazapine 7.5 MG Oral Tablet (Remeron) 30 Tab*0 Sig: TAKE 1 TABLET BY MOUTH EVERYDAY AT BEDTIMERefused By: ZAHRA YANES for Refusal: Too soonReason for Refusal Comment: refill sent 08/11/24 documented in this encounter Plan of Treatment Upcoming Encounters Date Type Department Care Team (Late st Contact Info) Description 08/25/2024 2:00 PM EST Nurse Only [facility] [place] [address] [place] [address] Nurse, Int Med [address] [facility] [place] [address] 11/15/2024 3:00 PM EST Office Visit General Internal Medicine [facility] [place] [address] [place] [address] Kia Goetz MD [address] [facility] [place] [address] 12/09/2024 9:30 AM EST Office Visit Cardiology, [address] [place] [address] Trupti Sage, [place] [address] [place] [address] 01/03/2025 11:00 AM EDT Imaging Vascular Lab, [facility] 2nd Floor, [place] [address] [facility] [place] [address] 01/12/2025 11:10 AM EDT Office Visit Vascular Surgery, [facility] [address] [place] [address] Servando Rees MD [address] [place] [address] Health Maintenance Due Date Last Done Comments DISCUSS TOBACCO CESSATION (REFER TO SMARTSET #8448) 1945 Alpha-1 Antitrypsin 1965 Hepatitis C Screening [...] encounter Visit Diagnoses Diagnosis Adjustment disorder with depressed mood Caregiver stress Other health problem within the family Adjustment disorder with mixed anxiety and depressed mood Loss of appetite for more than 2 weeks documented in this encounter Care Teams Trim Installer Relationship Specialty Start Date End Date Kia Goetz MD 200 [place] [address] PCP - General Internal Medicine 10/08/21 documented as of this encounter
--- OUTSIDE RECORDS SUMMARY | 2025-01-31 06:38 | External Medical Summary ---
Author Name Unknown Address Unknown Organization K01:[facility] [place] [facility] [address] Laboratory Report Ordering Provider Test Date Status THAIS LANDIS 08/12/2024 08:58:48 Final Observation Date Value Abnormality Reference (Units ) Status Triglyceride 08/12/2024 08:58:48 125 <=174 ( mg/dL) Final Triglyceride Reference Range s (mg/dL):
<150 Acceptable
150-174 Borderline high
175-499 High
>=500 Very high Cholesterol 08/12/2024 08:58:48 117 <200 (mg /dL) Final Total Cholesterol Reference Ranges (mg/dL):
<200 Desirable
200-239 Borderline high
>=240 High HDL 08/12/2024 08:58:48 43 Below low normal >49 (mg/dL) Final HDL Cholesterol Reference Ra nges (mg/dL):
>=60 High (Desirable)
<50 Low (Undesirable) For Females
<40 Low (Undesirable) For Males NON-HDL CHOLESTEROL 08/12/2024 08:58:48 74 <=159 (mg/dL) Final Non-HDL Cholesterol Referenc e Range (mg/dL):
<100 Target level for high risk ASCVD patient
<130 Optimal for general population
130-159 Near optimal for general population
160-189 Borderline High
190-219 High
>=220 Very High LDL, (calculated) 08/12/2024 08:58:48 49 <= 129 (mg/dL) Final LDL Cholesterol Reference Ra nges (mg/dL):
<70 Target level for high risk ASCVD patient
<100 Optimal for general population
100-129 Near optimal for general population
130-159 Borderline high
160-189 High
>=190 Very high Performing Location [facility] [place] [facility] [address] [facility] [address]
--- OUTSIDE RECORDS SUMMARY | 2025-01-31 06:38 | External Medical Summary | Summary of Care ---
Author Name Unknown Organization [facility] Address [address] [place] [facility] [place] [address] Phone [phone] Care Team Providers Care Lodging House Keeper Name Role Phone Kia Goetz MD Primary Care Provider [phone] Reason for Visit * Reason Onset Date Comments Medication Refill 08/04/2024 Encounter Details Date Type Department Care Team (Late st Contact Info) Description 08/04/2024 Refill General Internal Medicine [facility] 200 [facility] [place] [address] Kia Goetz MD 200 [facility] [place] [address] HTN, goal below 140/80; Hypotension due to drugs Allergies Active Allergy Reactions Criticality Noted Date Comments Mometasone Furoate 01/08/2022 Blisters sides of mouth Duloxetine Hcl Low 10/08/2021 Not allergic, just doesn't work Levofloxacin High 10/08/2021 Becomes deathly ill documented as of this encounter (statuses as of 09/30/2024) Medications ZyrTEC Allergy 10 MG Oral Capsule (Cetirizine HCl) Take 1 Capsule by mouth in the morning. Active Famotidine 20 MG Oral Tablet (Pepcid) Take 1 Tablet by mouth 2 times a day as needed for Heartburn. -uses 2/wk 021 Active Aspirin 325 MG Oral TabletIndications :Coronary artery disease involving [place] coronary artery of [place] heart without angina pectoris,Hx of CABG,S/P carotid [...] (Nitrostat)Indica tions:Coronary artery disease involving [place] coronary artery of [place] heart without angina pectoris Place 1 Tablet under the tongue as needed for Pain, Chest. May repeat 3 times. If chest pain continues, call 911. 25 Tablet 023 Active Vitamin D-3 25 MCG (1000 UT) Oral CapsuleIndication s:Longitudinal ridging of nail,Vitamin D insufficiency 1 capsule daily--inc 02/10/2024 024 Active Ezetimibe 10 MG Oral Tablet (Zetia)Indication s:Coronary artery disease involving [place] coronary artery of [place] heart without angina pectoris,Dyslipid emia, goal LDL below 70 TAKE 1 TABLET BY MOUTH EVERY DAY IN THE MORNING 90 Tablet 3 024 Active Metoprolol Succinate ER 25 MG Oral Tablet Extended Release 24 Hour (toPROL XL)Indications:Co ronary artery disease involving [place] coronary artery of [place] heart without angina pectoris TAKE 1 TABLET [...] (Lipitor)Indicati ons:Coronary artery disease involving [place] coronary artery of [place] heart without angina pectoris,Dyslipid emia, goal LDL below 70 TAKE 1 TABLET BY MOUTH EVERY DAY IN THE MORNING 90 Tablet 3 024 2023 Discontinued buPROPion HCl ER (SR) 150 MG Oral [...] as of this encounter (statuses as of 09/30/2024) Active Problems Problem Noted Date Diagnosed Date [...] Coronary artery disease invo lving [place] coronary artery of [place] heart without angina pectoris 10/08/2021 Hx of [...] as of this encounter (statuses as of 09/30/2024) Resolved Problems Problem Noted Date Diagnosed Date Resolved Date Bilateral carotid artery stenosis 10/22/2021 08/11/2023 COPD, severity to be determined 10/08/2021 01/01/2023 Overview: Per COPD GOLD Classification documented as of this encounter (statuses as of 09/30/2024) Immunizations Name Administration Dates Next Due COVID-19 mRNA, LNP-s, No Pre serve, 2-Dose Series (Moderna) 01/23/2021,12/28/2020 Pneumococcal Conjugate Vacci ne, 20-valent ([id number]) 09/02/2022 Pneumococcal Polysaccharide PPV23 (Pneumovax) 09/01/2017 Seasonal [...] encounter Miscellaneous Notes * Telephone Encounter - Rachell Dixon CMA - 08/04/2024 2:14 PM EDTRefused Prescriptions: Disp Refills Ramipril 2.5 MG Oral Capsule (Altace) 30 Cap*1 Sig: Take 1 Capsule by mouth at bedtime. 06/07/24(noted aldactone Dc 07/05/2024) Refused By: RACHELL DIXON Reason for Refusal: Too soon * Telephone Encounter - Maura Romero OSA - 08/04/2024 12:40 PM EDT Did you pend patient's preferred pharmacy and medication before forwarding?yes Pharmacy: [id number] [place] [address] [address] [facility] Pending Prescriptions: Disp Refills Ramipril 2.5 MG Oral Capsule (Altace) 30 Cap*1 Sig: Take 1 Capsule by mouth at bedtime. 06/07/24(noted aldactone Dc 07/05/2024) Last Visit: 07/05/2024 (in office), Visit date not found (telemedicine) Next Visit: 08/11/2024 If no future appointments scheduled, and last appointment is greater than a year ago, please schedule patient for a follow-up appointment Last date the medication was ordered: 07/06/2024 Is this request for a controlled substance?No Urine Drug Screen:No results found for this or any previous visit. Patient Phone Numbers Labs: Lab Results Component Value Date/Time CREAT 1.0 05/19/2024 01:55 PM CREAT 0.91 06/20/2021 12:00 AM POTASSIUM 5.0 05/19/2024 01:55 PM POTASSIUM 5.0 06/20/2021 12:00 AM TSH 1.78 06/20/2021 12:00 AM LDL 76 02/10/2024 12:29 PM LDL 66 08/11/2023 12:45 PM LDLCALC 58 06/20/2021 12:00 AM ALT 24 02/10/2024 12:29 PM HGBA1C 6.2 (H) 02/10/2024 12:29 PM HGBA1C 5.9 (H) 06/20/2021 12:00 AM documented in this encounter Plan of Treatment Upcoming Encounters Date Type Department Care Team (Late st Contact Info) Description 11/15/2024 3:00 PM EST Office Visit General Internal Medicine [facility] [place] [address] [place] [address] Kia Goetz MD [address] [place] [address] 12/09/2024 9:30 AM EST Office Visit Cardiology, [facility] 132 [facility] [place] [address] Trupti Sage, [place]-Cathy [address] [place] [address] 01/03/2025 11:00 AM EDT Imaging Vascular Lab, [facility] 2nd Floor, [place] [facility] [place] [address] 01/12/2025 11:10 AM EDT Office Visit Vascular Surgery, [facility] [place] [address] Servando Rees MD [address] [place] [address] Health Maintenance Due Date Last [...] hypotension documented in this encounter Care Teams Lodging House Keeper Relationship Specialty Start Date End Date Kia Goetz MD 200 [facility] [place] [address] PCP - General Internal Medicine 10/08/21 documented as of this encounter
--- OUTSIDE RECORDS SUMMARY | 2025-01-31 06:38 | External Medical Summary | Summary of Care ---
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 Setter Apprentice Name Role Phone Sabiha Goetz MD Primary Care Provider [phone] Reason for Visit * Reason Comments eRx-Medication Refill Encounter Details Date Type Department Care Team (Late st Contact Info) Description 08/09/2024 Refill General Internal Medicine [facility] [address] [place] [address] Sabiha Goetz MD [address] [place] [address] SIXTO (generalized anxiety disorder); Symptomatic carotid artery narrowing without infarction, right; S/P carotid endarterectomy Allergies Active Allergy Reactions Criticality Noted Date Comments Mometasone Furoate 01/08/2022 Blisters sides of mouth Duloxetine Hcl Low 10/08/2021 Not allergic, just doesn't work Levofloxacin High 10/08/2021 Becomes deathly ill documented as of this encounter (statuses as of 08/11/2024) Medications Medication Sig Dispensed Refills Start Date End Date Status ZyrTEC Allergy 10 MG Oral Capsule (Cetirizine HCl) Take 1 Capsule by mouth in the morning. Active Famotidine 20 MG Oral Tablet (Pepcid) Take 1 Tablet by mouth 2 times a day as needed for Heartburn. -uses 2/wk Active Aspirin 325 MG Oral TabletIndications:C oronary artery disease involving [place] coronary artery of [place] heart without angina pectoris,Hx of CABG,S/P carotid endarterectomy Take 1 Tablet by mouth in the morning. 1 Tablet 2 Active Acetaminophen 500 MG Oral Tablet (Tylenol)Indication s:Headache, unspecified headache type Take by mouth 2 Tablets as needed in the morning AND 2 Tablets as needed at noon AND 2 Tablets as needed in the evening (headache). 100 Tablet 2 Active Nitroglycerin 0.4 MG Sublingual Tablet Sublingual (Nitrostat)Indicati ons:Coronary artery disease involving [place] coronary artery of [place] heart without angina pectoris Place 1 Tablet under the tongue as needed for Pain, Chest. May repeat 3 times. If chest pain continues, call 911. 25 Tablet 3 Active Atorvastatin Calcium 40 MG Oral Tablet (Lipitor)Indication s:Coronary artery disease involving [place] coronary artery of [place] heart without angina pectoris,Dyslipidem ia, goal LDL below 70 TAKE 1 TABLET BY MOUTH EVERY DAY IN THE MORNING 90 Tablet 3 4 Active Vitamin D-3 25 MCG (1000 UT) Oral CapsuleIndications: Longitudinal ridging of nail,Vitamin D insufficiency 1 capsule daily--inc 02/10/2024 4 Active Ezetimibe 10 MG Oral Tablet (Zetia)Indications: Coronary artery disease involving [place] coronary artery of [place] heart without angina pectoris,Dyslipidem ia, goal LDL below 70 TAKE 1 TABLET BY MOUTH EVERY DAY IN THE MORNING 90 Tablet 3 4 Active Metoprolol Succinate ER 25 MG Oral Tablet Extended Release 24 Hour (toPROL XL)Indications:Frida nary artery disease involving [place] coronary artery of [place] heart without angina pectoris TAKE 1 TABLET BY MOUTH EVERY DAY IN THE MORNING 90 Tablet 3 4 Active Butalbital-Acetamin ophen 50-325 MG Oral TabletIndications:L umbar degenerative disc disease,Chronic neck and back pain Take 1 Tablet by mouth daily as needed for Pain, Moderate or Pain, Severe (neck pain). 30 Tablet 4 Active Ventolin HFA 108 (90 Base) MCG/ACT Inhalation Aerosol SolutionIndications :COPD, group A, by GOLD 2017 classification ([facility]),Tobacco use disorder Inhale 2 Puffs by mouth every 4 hours as needed for Wheezing. 18 g 1 4 Active HYDROcodone-Acetami nophen 5-325 MG Oral TabletIndications:S /P wisdom tooth extraction,Pain in gums Take 1 Tablet by mouth every 8 hours as needed for Pain, Moderate (tooth pain sp extraction 05/28/24). 21 Tablet 4 Active Additional Information Patient not taking.Reported on 08/11/2024 Reyna Harrison 100-62.5-25 MCG/ACT Aerosol Powder Breath ActivatedIndication s:Tobacco use disorder,COPD, group A, by GOLD 2017 classification ([facility]),Abnormal lung sounds INHALE 1 PUFF BY MOUTH IN THE MORNING. -FROM 08/11/2023. 60 Each 5 4 Active LORazepam 0.5 MG Oral Tablet (Ativan)Indications :SIXTO (generalized anxiety disorder),Symptomat ic carotid artery narrowing without infarction, right,S/P carotid endarterectomy TAKE 1/2 TAB BY MOUTH IN THE MORNING AND EVENING FOR ANXIETY 30 Tablet 4 Active LORazepam 0.5 MG Oral Tablet (Ativan)Indications :SIXTO (generalized anxiety disorder),Symptomat ic carotid artery narrowing without infarction, right,S/P carotid endarterectomy TAKE 1/2 TAB BY MOUTH IN THE MORNING AND EVENING FOR ANXIETY 30 Tablet 4 08/11/20 24 Discontinued documented as of this encounter (statuses as of 08/11/2024) Active Problems Problem Noted Date Diagnosed Date [...] RT arm Coronary artery disease invo lving [place] coronary artery of [place] heart without angina pectoris 10/08/2021 Hx of [...] as of this encounter (statuses as of 08/11/2024) Resolved Problems Problem Noted Date Diagnosed Date Resolved Date Bilateral carotid artery stenosis 10/22/2021 08/11/2023 COPD, severity to be determined 10/08/2021 01/01/2023 Overview: Per COPD GOLD Classification documented as of this encounter (statuses as of 08/11/2024) Immunizations Name Administration Dates Next Due COVID-19 mRNA, LNP-s, No Pre serve, 2-Dose Series (Moderna) 01/23/2021,12/28/2020 Pneumococcal Conjugate Vacci ne, 20-valent ([id number]) 09/02/2022 Pneumococcal Polysaccharide PPV23 (Pneumovax) 09/01/2017 Seasonal [...] Telephone Encounter - Sabiha Goetz MD - 08/11/2024 1:08 PM EDTSigned Prescriptions: Disp Refills LORazepam 0.5 MG Oral Tablet (Ativan) 30 Tab*0 Sig: TAKE 1/2 TAB BY MOUTH IN THE MORNING AND EVENING FOR ANXIETY Authorizing Provider: SABIHA GOETZ * Telephone Encounter - Todd Florian [facility] - 08/11/2024 9:31 AM EDTPending Prescriptions: Disp Refills LORazepam 0.5 MG Oral Tablet [Pharmacy Med*30 Tab*0 Sig: TAKE 1/2 TAB BY MOUTH IN THE MORNING AND EVENING FOR ANXIETY * Telephone Encounter - Todd Florian [facility] - 08/11/2024 9:31 AM EDT I have reviewed the patient’s controlled substance dispensing history in the Prescription Drug Monitoring Program in compliance with the [place] regulations before prescribing a controlled substance. PDMP checked on 08/11/2024. Pending Prescriptions: Disp Refills LORazepam 0.5 MG Oral Tablet (Ativan) [Ph*30 Tab*0 Sig: TAKE 1/2 TAB BY MOUTH IN THE MORNING AND EVENING FOR ANXIETY Last Visit: 07/05/2024 (in office), Visit date not found (telemedicine) Next Visit: 08/11/2024 Date medication was last filled: 07/11/2024 Date medication is due for refill: 08/09/2024 Pharmacy: [id number] [facility] Is this request for a controlled substance? Yes and Urine Drug Screen Not completed Toxicology results: No results found for this or any previous visit. Please approve if appropriate. Thanks, Todd Florian Pharm.D. Clinical Pharmacist [facility] ([facility]) [phone] 08/11/2024, 9:31 AM documented in this encounter Plan of Treatment Upcoming Encounters Date Type Department Care Team (Late st Contact Info) Description 08/16/2024 2:00 PM EDT NeuroDiagnostic Study Neurophysiology [facility] [address] [place] [address] Sp, Neurophys Tech [address] [place] [address] 08/23/2024 2:00 PM EST Cardiac Studies Cardiac Studies, [facility] [address] [place] [address] 12/09/2024 9:30 AM EST Office Visit Cardiology, [facility] [address] [address] Trupti Sage PA-C [address] [place] [address] 01/03/2025 11:00 AM EDT Imaging Vascular Lab, [facility] [address] 2nd Floor, [place] [address] [address] 01/12/2025 11:10 AM EDT Office Visit Vascular Surgery, [facility] [address] [place] [address] Servando Rees MD [address] [facility] [place] [address] Health Maintenance Due Date Last Done Comments DISCUSS TOBACCO CESSATION (REFER TO SMARTSET #[id number]) 1945 Alpha-1 Antitrypsin 1965 Hepatitis C Screening [...] 02/09/2025 02/10/2024, 07/21, 03/06/2023, Additional history exists O2 ASSESSMENT COMPLETED IN PAST YEAR FOR COPD 07/05/2025 07/05/2024 Pneumococcal Vaccine: 65+ Years Completed 09/02/2022, 09/01/2017 [...] status documented in this encounter Care Teams Stone Setter Apprentice Relationship Specialty Start Date End Date Sabiha Goetz MD [address] [facility], [place] [id number] PCP - General Internal Medicine 10/08/21 documented as of this encounter
--- OUTSIDE RECORDS SUMMARY | 2025-01-31 06:38 | External Medical Summary ---
Author Name Unknown Address Unknown Organization K09:[facility] [place] [place] [address] Laboratory Report Ordering Provider Test Date Status THAIS LANDIS 08/12/2024 08:58:48 Final Observation Date Value Abnormality Reference (Units ) Status SYNC LEUKOCYTES IN BLOOD BY AUTOMATED COUNT 08/12/2024 08:58:48 8.10 4.00-10.80 (K/uL) Final Segs 08/12/2024 08:58:48 66.1 40.0-75.0 (%) Final Lymphs % 08/12/2024 08:58:48 23.7 18.0-42.0 (%) Final Monos 08/12/2024 08:58:48 8.0 1.0-11.0 (%) Final Eosinophils 08/12/2024 08:58:48 1.7 0.0-6.0 (%) Final Basos 08/12/2024 08:58:48 0.5 0.0-2.0 (%) Final Absolute Segs 08/12/2024 08:58:48 5.35 1.80-7.70 (K/uL) Final Lymphs, absolute 08/12/2024 08:58:48 1.92 1.00-4.80 (K/ul) Final Monos, Abs 08/12/2024 08:58:48 0.65 0.00-1.10 (K/uL) Final Eos, Abs 08/12/2024 08:58:48 0.14 0.00-0.70 (K/uL) Final Basos, Abs 08/12/2024 08:58:48 0.04 0.00-0.20 (K/uL) Final Performing Location [facility] [place] [address]
[2025-01-31] MEDS: ALBUT/IPRATROP 3MG/0.5MG NEB 3 ML VIAL NEB STA (06:43)
[2025-01-31] MEDS: methylPREDNISolone 125 MG/2 ML VIAL IV STA (06:43)
[2025-01-31] MEDS: LORazepam 2 MG/1 ML VIAL IV STA ×3 (06:44→09:39)
[2025-01-31] MEDS: LORazepam 2 MG/1 ML VIAL ONE (06:44)
[2025-01-31 06:51] LABS: Basophils # (auto) 0.05 K/uL (0.00-0.20); Basophils % (auto) 0.6 %; Eosinophils # (auto) 0.19 K/uL (0.00-0.50); Eosinophils % (auto) 2.4 %; Hematocrit (blood only) 35.7 % (37.0-47.0); Hemoglobin 11.2 g/dl (12.0-16.0); Immature Granulocytes # (auto) 0.05 K/uL (0.01-0.20); Immature Granulocytes % (auto) 0.6 %; Lymphocytes # (auto) 2.49 K/uL (1.20-3.40); Mean Corpuscular Hgb Conc 31.4 g/dL (32.0-36.0); Mean Corpuscular Volume 92.5 fL (80.0-100.0); Mean Platelet Volume 9.3 fL (9.4-12.4); Monocytes # (auto) 0.62 K/uL (0.11-0.59); Monocytes % (auto) 7.7 %; Neutrophils # (auto) 4.64 K/uL (1.40-6.50); Neutrophils % (auto) 57.7 %; Platelet Count 395 K/uL (130-400); RDW Coefficient of Variation 15.5 % (11.5-14.5); Red Blood Count 3.86 M/uL (4.20-5.40); White Blood Count 8.04 K/ul (4.8-10.8)
[2025-01-31 06:52] LABS: iSTAT Creatinine 0.8 mg/dl (0.6-1.3); iSTAT Hemoglobin 11.2 g/dl (12.0-16.0); iSTAT Ionized Calcium 1.2 mmol/l (1.12-1.32); iSTAT Potassium 4.2 mmol/L (3.3-5.0)
[2025-01-31 07:08] LABS: Albumin Globulin Ratio 1.4 (0.9-2); Albumin Level 3.9 gm/dl (3.4-5.0); BUN Creatinine Ratio 14.9 (10-20); Bilirubin,Total 0.4 mg/dl (0.2-1.0); Calcium 8.8 mg/dl (8.6-10.3); Creatinine Clr Calc Pharmacy 48.4 ml/min; Globulin 2.8 gm/dl (2.5-4.0); Potassium 4.3 mmol/L (3.5-5.1); Total Protein 6.7 gm/dl (6.0-8.3)
[2025-01-31 07:15] LABS: Troponin I High Sensitivity 11.5 pg/ml (0-14)
[2025-01-31] MEDS: FUROSEMIDE 40 MG/4 ML VIAL IV STA (07:22)
--- NOTE | 2025-01-31 07:22 | XRay Report ---
EXAM: XR chest 1V portable CLINICAL HISTORY: Chest pain, nonspecific TECHNIQUE: An X-ray image of the chest is obtained in AP projection. COMPARISON: CTA chest dated on 01/27/2025. FINDINGS: Pulmonary Parenchyma: Both CP angles are obliterated, suggesting mild pleural effusion. Bilateral basal atelectasis bands were noted. No evidence of lobar consolidation, collapse, or focal opacities. Heart and Mediastinum: Heart size and shape are normal. No mediastinal widening or masses. A stent is projected over the upper mediastinum in the left carotid artery. Bony Thorax: A previous sternotomy was noted. Degenerative changes of the visualized skeleton. Soft Tissues: Soft tissues overlying the chest wall are unremarkable. IMPRESSION: 1. Both CP angles are obliterated, suggesting mild pleural effusion. Unchanged. 2. Bilateral basal atelectasis bands were noted. Unchanged. 3. No gross interval change in comparison with the CTA chest dated on 01/27/2025. Electronically signed by Carlos Moscoso 01-31-2025 07:21 AM
[2025-01-31] MEDS: cefTRIAXone SODIUM 2,000 MG/50 ML BAG IV STA (07:26)
[2025-01-31 07:47] LABS: Adenovirus PCR Not Detected (NotDetected); Bordetella parapertussis PCR Not Detected (NotDetected); Bordetella pertussis PCR Not Detected (NotDetected); Chlamydia pneumoniae PCR Not Detected (NotDetected); Coronavirus 229E PCR Not Detected (NotDetected); Coronavirus CoV-2 (COVID19)PCR Not Detected (NotDetected); Coronavirus HKU1 PCR Not Detected (NotDetected); Coronavirus NL63 PCR Not Detected (NotDetected); Coronavirus OC43PCR Not Detected (NotDetected); Human Metapneumovirus PCR Not Detected (NotDetected); Influenza A PCR Not Detected (NotDetected); Influenza B PCR Not Detected (NotDetected); Mycoplasma pneumoniae PCR Not Detected (NotDetected); Parainfluenza Virus 1 PCR Not Detected (NotDetected); Parainfluenza Virus 2 PCR Not Detected (NotDetected); Parainfluenza Virus 3 PCR Not Detected (NotDetected); Parainfluenza Virus 4 PCR Not Detected (NotDetected); Respiratory Syncytial VirusPCR Not Detected (NotDetected); Rhinovirus/Enterovirus PCR Not Detected (NotDetected)
[2025-01-31 08:26] LABS: iSTAT Arterial Blood Gas HCO3 19 meg/L (19-24); iSTAT Arterial Blood Gas pCO2 27 mmHg (35-46); iSTAT Arterial Blood Gas pH 7.45 (7.35-7.45); iSTAT Arterial Blood Gas pO2 216 mmHg (80-95); iSTAT Carbon Dioxide 20 mmol/L (24-31); iSTAT Hematocrit 32 % (37-47); iSTAT Hemoglobin 10.9 g/dl (12.0-16.0); iSTAT Potassium 4.1 mmol/L (3.3-5.0); iSTAT Sodium 140 mmol/L (135-144)
[2025-01-31] MEDS: OPTIRAY 320 125ml IV ONE (08:34)
--- NOTE | 2025-01-31 08:46 | CT Scan Report ---
CT angio chest PE protocol CT DOSE: 645.76 mGy.cm HISTORY: 79 years-old Female with PE. Acute shortness of breath TECHNIQUE: Multiple CTA images of the chest were obtained after the intravenous administration of 68 ml Optiray. Coronal and sagittal MIPS were obtained from the axial data set and were submitted for Entrecw. All measurements were obtained according to NASCET criteria. A dose lowering technique was ut ilized adhering to the principles of ALARA. COMPARISON: 01/27/2025 FINDINGS: CTA: Median sternotomy. Moderate cardiomegaly. Extensive coronary artery calcifications with prior CABG. A therosclerosis of the aorta with prominent plaque likely resulting in high-grade stenosis at the orig in of the great vessels. There is a stent within the origin of the left common carotid artery. The th e left heart structures and aorta are not well opacified secondary to contrast bolus timing. No pulmo nary emboli are identified. CT CHEST: Unremarkable thyroid. No pathologically enlarged lymph nodes. Small left with moderate right pleural effusions. No pneumothorax. Intralobular septal thickening with dependent bibasilar atelectasis, bron chial wall thickening and mild bibasilar mucous plugging. No suspicious pulmonary nodules or masses i dentified. Prominent atherosclerosis of the upper abdominal aorta. Unchanged left adrenal gland thickening with probable adenoma. There is nonspecific wall thickening noted throughout the majority of the esophagus and gastroesophageal junction. No acute fracture identified. IMPRESSION: 1. No pulmonary emboli identified. 2. Cardiomegaly with interstitial pulmonary edema, small left and moderate right pleural effusions. 3. Mild bibasilar mucous plugging with dependent atelectasis. 4. Extensive atherosclerosis of the aorta and proximal great vessels redemonstrated, not well evaluat ed secondary to contrast bolus timing. ACT 112: Negative or not required by law. The above report was generated using voice recognition software. It may contain grammatical, syntax o r spelling errors. Electronically signed by: Todd Luu M.D. 01/31/2025 8:44 AM
--- NOTE | 2025-01-31 09:45 | History & Physical Report ---
Date of Service January 31, 2025 Assessment & Plan (1) Acute hypoxic respiratory failure: (2) Pulmonary edema: (3) Bilateral pleural effusion: (4) Acute on chronic heart failure with preserved ejection fraction (HFpEF): (5) CAD (coronary artery disease): (6) Generalized anxiety disorder: Plan This is a 79-year-old female who has a significant past medical history of CAD status post CABG x 3 in 2014, carotid artery stenosis status post right carotid endarterectomy in 2016 and recent left carotid endarterectomy with left carotid artery stent placement on 01/20/2025, PAD/PVD, history of hypertension, hyperlipidemia, COPD, ocular ischemia, neovascular glaucoma and generalized anxiety disorder who presents to ED secondary to acute onset shortness of breath prior to arrival. #Acute hypoxic respiratory failure #Acute Pulmonary Edema #Bilateral pleural effusion, moderate R, small left #Acute on chronic heart failure with preserved EF #Elevated troponin admit to PCU pt weaned off bipap received 40mg IV lasix in ED, net negative -1L thus far strict I and O, daily weights obtain echo consult cardiology will continue lasix 20mg IV BID 17 due to softer BP suspect elevated trop in setting of demand ischemia due to chf/hypoxia, will cycle to be complete #CAD hx of CABG x 3 on asa, plavix, statin and zetia pt recently on metoprolol, but was instructed by vascular to stop this due to lower blood pressure will continue to hold metoprolol for now, but will defer to cardiology regarding resuming #Carotid artery Disease s/p L CEA and L carotid artery stent 01/[address] Rees, hx of R CEA in past #PAD/PVD follows [facility] Vascular Dr. Rees incision healing well, continue asa, plavix, statin #Ocular ischemia syndrome #Glaucoma follows Dr. Harrison, continue eye gtts, gets inj as outpt #Generalized anxiety disorder pt with significant anx, tearful during exam suffered from anxiety all of life, but recently passed in October and recent hospitalizations/surgery Son reports was on lorazepam 1mg BID for years, PCP weaning down and on 0.25mg BID Pt feels this really isn't helping and has trialed 3 prior SSRIS w/o benefit/intolerance will consult psych, feel pt would be best managed by psych as an outpt to assist with counseling/med management #dizziness, ?drop attack son reports pt with episodes of, "dizziness," described as losing neuromusclar tone starting in her legs to the point she just falls requesting neuro consult, last had on 01/27 when presented to ED #COPD #Tobacco abuse no acute exac continue nicotine patch, pt down from 2ppd to 5-10 cigs encourage cessation #Anemia: recent outpt w/u revealed normal iron stores, hgb stable, monitor DVT ppx: SQ Lovenox DNR/DNI PCP: Dr. Goetz Dispo: admit to PCU Pt was seen and examined in collaboration with Dr. Vallecillo, please see addendum I spent a total of 76 minutes coordinating, documenting and providing care for this patient excluding time spent in the performance of separately billed services or time spent by another provider/QHP. Discussed with son at bedside regarding assessment and treatment plan and he agrees with above. Son is Stephane Pope, History of Present Illness Chief Complaint: acute onset SOB prior to arrival. Primary Care Provider: Kia Goetz MD This is a 79-year-old female who has a significant past medical history of CAD status post CABG x 3 in 2014, carotid artery stenosis status post right carotid endarterectomy in 2016 and recent left carotid endarterectomy with left carotid artery stent placement on 01/20/2025, PAD/PVD, history of hypertension, hyperlipidemia, COPD, ocular ischemia, neovascular glaucoma and generalized anxiety disorder who presents to ED secondary to acute onset shortness of breath prior to arrival. Her son is at bedside also helps with the history along with external chart review. Of significance patient underwent a left carotid endarterectomy and left carotid stent placement in [place] by Dr. Rees on 01/20/2025. She tolerated the procedure well. Patient was seen in ED on 01/27 secondary to dizzy spells and low blood pressure. Patient had documented systolic blood pressures in the 80s to 90s while in ED. She underwent a CTA chest and neck CTA which revealed cardiomegaly, pulmonary edema, small bilateral pleural effusions, patent left common carotid artery stent, occluded proximal left subclavian artery with reconstitution at the level of the left vertebral artery, moderate to severe stenosis of the origin of the brachiocephalic trunk and extensive coronary artery calcification. These imaging findings were discussed with on-call surgeon at [facility]. At that time it was recommended patient follow-up with PCP as well as establish with outpatient neurology due to dizziness. 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 She has been pushing fluids to help her low blood pressure. She feels overall her dizziness has improved. Her reasoning for presenting to hospital today is due to waking up at 6 AM feeling like she could not catch her breath. She states that similar symptoms occurred yesterday which she was able to sit up and eventually her symptoms resolved and she was able to go about her day. She did still have dyspnea on exertion yesterday, felt it was manageable. She woke up at 6 AM this morning she called her son stating she was calling 911. She was able to walk downstairs with her for an exam and stand at the front door waiting for EMS. She states her symptoms greatly improved after being placed on BiPAP. She reports never having anything like this before. She denies any chest pain, diaphoresis, palpitations, nausea, lightheadedness, dizziness, recent respiratory symptoms, cough, change in her bowel or urinary habits. Patient reports significant anxiety. Son states she has been on benzodiazepines for better part of 20 years. She previously was on 1 mg twice daily currently her PCP has weaned her down to 0.25 mg twice daily. The patient states that this is doing nothing as she is crying during her history. She reports a significant recent events with her passing away in October and her most recent surgeries and hospitalizations. She states her PCP has previously tried 3 SSRIs with intolerance/no benefit. In regards to her, "dizziness," She states that she is feeling like she is, "losing her neuromuscular tone." When she presented to the ED on 01/27 she had several episodes where she states, "it starts in my toes and goes up my legs and my legs just give out and I fall." "My whole body then starts shaking." Son reports her falling several times during that day, but hasn't occurred since. They are requesting a neurology consult. in ED patient was initially hypoxic requiring BiPAP support. She received numerous therapies including 40 mg of IV Lasix, 60 mg of IV Solu-Medrol, 2000 mg IV ceftriaxone and a total of 0.5 mg of IV lorazepam. Discussed with nursing who reports 1Lurine output thus far. She has since been weaned off BiPAP and is currently on 3 L of oxygen. In ED her CBC and CMP was unremarkable. Her troponin was undetectable. Her ABG revealed a compensated pH of 7.45. Her respiratory bio fire was negative. She underwent chest CTA which revealed cardiopulmonary edema with bilateral pleural effusions. Angiogram was otherwise unchanged from previous. Allergies Allergy/AdvReac Type Severity Reaction Status Date / Time duloxetine [From Cymbalta] Allergy Unknown Unknown Unverified 01/31/25 08:16 levofloxacin [From Levaquin] Allergy Unknown Unknown Unverified 01/31/25 08:16 mometasone furoate Allergy Unknown Unknown Unverified 01/31/25 08:16 [From Asmanex Twisthaler] Home Medications Medication Instructions Recorded Confirmed Type albuterol sulfate 90 mcg/actuation 2 puff inhalation Q4H PRN Wheezing 01/27/25 01/31/25 History aerosol inhaler atorvastatin 40 mg tablet 40 mg PO QAM 01/27/25 01/31/25 History clopidogrel 75 mg tablet 75 mg PO QAM 01/27/25 01/31/25 History dorzolamide 22.3 mg-timolol 6.8 1 drp OPR BID 01/27/25 01/31/25 History mg/mL eye drops ezetimibe 10 mg tablet 10 mg PO QAM 01/27/25 01/31/25 History lorazepam 0.5 mg tablet 0.25 mg PO BID 01/27/25 01/31/25 History metoprolol succinate 25 mg 25 mg PO QAM 01/27/25 01/31/25 History tablet,extended release 24 hr oxycodone 5 mg tablet 5 mg PO Q8H PRN Pain 01/27/25 01/31/25 History acetaminophen 500 mg tablet 1,000 mg PO TID PRN Pain 01/31/25 01/31/25 History aspirin 81 mg tablet,delayed 81 mg PO DAILY 01/31/25 01/31/25 History release cetirizine 10 mg capsule (Zyrtec) 10 mg PO DAILY PRN Allergy Symptoms 01/31/25 01/31/25 History cholecalciferol (vitamin D3) 25 25 mcg PO DAILY 01/31/25 01/31/25 History mcg (1,000 unit) capsule (Vitamin D3) famotidine 10 mg tablet 10 mg PO BID PRN heart burn 01/31/25 01/31/25 History nicotine 21 mg/24 hr daily 1 patch transdermal DAILY 01/31/25 01/31/25 History transdermal patch Past Med/Surg History Problem List (Updated 01/31/25 @ 12:47 by King Flores DO) Acute on chronic heart failure with preserved ejection fraction (HFpEF) Bilateral pleural effusion (Acute) Pulmonary edema (Acute) Acute hypoxic respiratory failure (Acute) Dizziness (Acute) Medical History (Updated 01/31/25 @ 12:47 by King Flores DO) Generalized anxiety disorder Tobacco abuse PVD (peripheral vascular disease) PAD (peripheral artery disease) Glaucoma Ocular ischemic syndrome Pre-diabetes CAD (coronary artery disease) Carotid artery stenosis HLD (hyperlipidemia) HTN (hypertension) Surgical History (Updated 01/31/25 @ 10:45 by Francheska Stauffer PA-C) History of carotid endarterectomy History of coronary artery bypass graft x 3 Social History (Updated 01/31/25 @ 10:45 by Francheska Stauffer PA-C) Smoking Status: Current every day smoker Tobacco Type: Cigarettes Cigarettes Per Day: 1/2 pack per day; Second Hand Exposure: No; Do You Dip or Chew Tobacco: No; Tobacco Cessation Education Requested by Patient: No Hx Alcohol Use: No Hx Substance Use: No Preferred Language: [place] Leonean Communication Ability: Effective Missile Inspector Required: No Beliefs That Will Affect Care: None marital status: / Current Living Situation: Alone Other Information That Helps Us Care for You: No Feels Safe at Home: Yes Safety Concerns: Feels Safe At This Time Assistive Devices: Glasses Review of Systems Review of Systems: All systems reviewed & are unremarkable except as noted in HPI & below Physical Exam Physical Exam: Constitutional: WD/WN, elderly, F, crying/anxious during visit, vitals as above, NAD, sitting up in bed, pleasant, conversing easily Head: Normocephalic, Atraumatic Eyes: PERRL, conjunctivae normal, anicteric sclerae ENMT: external ear and nose normal, oropharynx normal Neck: trachea midline, no thyromegaly normal visual inspection Respiratory: normal respiratory effort, lungs clear to auscultation, diminished bs at bases, no wheeze, rales, rhonchi. Normal insp/exp effort, no accessory muscle use Cardiovascular: RRR with occassional ectopy, no murmur, no edema Vessels: no JVD or carotid bruit Chest: normal inspection of chest Abdomen: normal bowel sounds, soft, nontender, no hepatosplenomegaly Musculoskeletal: no cyanosis or clubbing, extremities motor strength 5/5 Skin: no rashes, warm and dry normal turgor Neurologic: PERRL, EOMI, accommodation nl, no face palsy, no dysarthria CN's II-XI intact bilaterally and moves all extremities Psychiatric: A+Ox3, euthymic affect Lymphatic: no cervical or axillary lymphadenopathy : deferred Results & Data Results & Data Vital Signs (Past 12 Hours) Vital Signs Temp Pulse Pulse Resp BP BP Pulse Ox 01/31/25 08:59 81 20 112/50 L 96 01/31/25 08:17 81 22 127/72 96 01/31/25 07:10 102 H 40 H 01/31/25 07:07 102 H 40 H 01/31/25 06:54 88 26 H 130/84 95 01/31/25 06:40 01/31/25 06:40 01/31/25 06:40 01/31/25 06:32 110 H 01/31/25 06:29 36.8 C 112 H 40 H 130/84 94 O2 Del Method O2 Flow Rate FiO2 01/31/25 08:59 Nasal Cannula 3 01/31/25 08:17 Nasal Cannula 3 01/31/25 07:10 BiPAP 50 01/31/25 07:07 50 01/31/25 06:54 BiPAP 01/31/25 06:40 BiPAP 01/31/25 06:40 BiPAP 01/31/25 06:40 BiPAP 01/31/25 06:32 01/31/25 06:29 BiPAP Laboratory Results I have independently reviewed and interpreted patient's admitting labs including CBC, CMP, abg, lactic acid, mag and troponin. Diagnostic Findings Chest X-Ray 01/31/25 06:33 EXAM: XR chest 1V portable CLINICAL HISTORY: Chest pain, nonspecific TECHNIQUE: An X-ray image of the chest is obtained in AP projection. COMPARISON: CTA chest dated on 01/27/2025. FINDINGS: Pulmonary Parenchyma: Both CP angles are obliterated, suggesting mild pleural effusion. Bilateral basal atelectasis bands were noted. No evidence of lobar consolidation, collapse, or focal opacities. Heart and Mediastinum: Heart size and shape are normal. No mediastinal widening or masses. A stent is projected over the upper mediastinum in the left carotid artery. Bony Thorax: A previous sternotomy was noted. Degenerative changes of the visualized skeleton. Soft Tissues: Soft tissues overlying the chest wall are unremarkable. IMPRESSION: 1. Both CP angles are obliterated, suggesting mild pleural effusion. Unchanged. 2. Bilateral basal atelectasis bands were noted. Unchanged. 3. No gross interval change in comparison with the CTA chest dated on 01/27/2025. Electronically signed by Carlos Moscoso 01-31-2025 07:21 AM Chest CTA 01/31/25 07:37 CT angio chest PE protocol CT DOSE: 645.76 mGy.cm HISTORY: 79 years-old Female with PE. Acute shortness of breath TECHNIQUE: Multiple CTA images of the chest were obtained after the intravenous administration of 68 ml Optiray. Coronal and sagittal MIPS were obtained from the axial data set and were submitted for review. All measurements were obtained according to NASCET criteria. A dose lowering technique was utilized adhering to the principles of ALARA. COMPARISON: 01/27/2025 FINDINGS: CTA: Median sternotomy. Moderate cardiomegaly. Extensive coronary artery calcifications with prior CABG. Atherosclerosis of the aorta with prominent plaque likely resulting in high-grade stenosis at the origin of the great vessels. There is a stent within the origin of the left common carotid artery. The the left heart structures and aorta are not well opacified secondary to contrast bolus timing. No pulmonary emboli are identified. CT CHEST: Unremarkable thyroid. No pathologically enlarged lymph nodes. Small left with moderate right pleural effusions. No pneumothorax. Intralobular septal thickening with dependent bibasilar atelectasis, bronchial wall thickening and mild bibasilar mucous plugging. No suspicious pulmonary nodules or masses identified. Prominent atherosclerosis of the upper abdominal aorta. Unchanged left adrenal gland thickening with probable adenoma. There is nonspecific wall thickening noted throughout the majority of the esophagus and gastroesophageal junction. No acute fracture identified. IMPRESSION: 1. No pulmonary emboli identified. 2. Cardiomegaly with interstitial pulmonary edema, small left and moderate right pleural effusions. 3. Mild bibasilar mucous plugging with dependent atelectasis. 4. Extensive atherosclerosis of the aorta and proximal great vessels redemonstrated, not well evaluated secondary to contrast bolus timing. ACT 112: Negative or not required by law. The above report was generated using voice recognition software. It may contain grammatical, syntax or spelling errors. Electronically signed by: Todd Luu M.D. 01/31/2025 8:44 AM Medications Administered Medication List Discontinued Medications Albuterol (Albut/Ipratrop 3mg/0.5mg Neb 3 Ml Vial) 3 ml NEB NOW STA; Protocol Stop: 01/31/25 06:34 Last Admin: 01/31/25 06:43 Dose: 3 ml Documented By: KIRA Furosemide (Furosemide 40 Mg/4 Ml Vial) 40 mg IV NOW STA Stop: 01/31/25 07:11 Last Admin: 01/31/25 07:22 Dose: 40 mg Documented By: IVETH Ceftriaxone Sodium (Rocephin) 2,000 mg in 50 mls @ 100 mls/hr IV NOW STA Stop: 01/31/25 07:39 Last Infusion: 01/31/25 09:11 Dose: Infused Documented By: Admin: 01/31/25 08:40 Dose: 100 mls/hr Documented By: IVETH Ioversol (Optiray 320 125ml) 68 ml IV ONCE ONE Stop: 01/31/25 08:35 Last Admin: 01/31/25 08:34 Dose: 68 ml Documented By: STEPHANIE Lorazepam (Lorazepam 2 Mg/1 Ml Vial) Confirm Administered Dose 2 mg .ROUTE .STK- MED ONE Stop: 01/31/25 06:34 Last Admin: 01/31/25 06:44 Dose: Not Given Documented By: KIRA Lorazepam (Lorazepam 2 Mg/1 Ml Vial) 0.25 mg IV NOW STA Stop: 01/31/25 06:34 Last Admin: 01/31/25 06:44 Dose: 0.25 mg Documented By: KIRA Lorazepam (Lorazepam 2 Mg/1 Ml Vial) 0.25 mg IV NOW STA Stop: 01/31/25 07:15 Last Admin: 01/31/25 07:18 Dose: 0.25 mg Documented By: IVETH Lorazepam (Lorazepam 2 Mg/1 Ml Vial) 0.25 mg IV NOW STA Stop: 01/31/25 09:31 Last Admin: 01/31/25 09:39 Dose: 0.25 mg Documented By: IVETH Methylprednisolone (Methylprednisolone 125 Mg/2 Ml Vial) 60 mg IV NOW STA Stop: 01/31/25 06:34 Last Admin: 01/31/25 06:43 Dose: 60 mg Documented By: DLH ECG Additional Comments: I have independently reviewed and interpreted patient's admitting EKG which revealed: NSR, 79, qtc 457ms, ST depression inferior COVID-19 Results Results COVID-19 Adm Lab Results: RBC 3.86 M/uL (4.20-5.40) L 01/31/25 WBC 8.04 K/ul (4.8-10.8) 01/31/25 Hgb 11.2 g/dl (12.0-16.0) L 01/31/25 Hct 35.7 % (37.0-47.0) L 01/31/25 Plt Count 395 K/uL (130-400) 01/31/25 Neutrophils (%) (Auto) 57.7 % 01/31/25 Lymphocytes (%) (Auto) 31.0 % 01/31/25 Monocytes # (Auto) 0.62 K/uL (0.11-0.59) H 01/31/25 Eosinophils # (Auto) 0.19 K/uL (0.00-0.50) 01/31/25 Immature Granulocyte % (Auto) 0.6 % 01/31/25 Lymphocytes # (Auto) 2.49 K/uL (1.20-3.40) 01/31/25 Monocytes # (Auto) 0.62 K/uL (0.11-0.59) H 01/31/25 Eosinophils # (Auto) 0.19 K/uL (0.00-0.50) 01/31/25 Basophils # (Auto) 0.05 K/uL (0.00-0.20) 01/31/25 Immature Granulocyte # (Auto) 0.05 K/uL (0.01-0.20) 5 Na 145 mmol/L (136-145) 01/31/25 K 4.3 mmol/L (3.5-5.1) 01/31/25 Cl 111 mmol/L (98-107) H 01/31/25 CO2 27 mmol/L (21-32) 01/31/25 Anion Gap 7 (3-11) 01/31/25 BUN 13 mg/dl (6-23) 01/31/25 Creatinine 0.87 mg/dl (0.6-1.2) 01/31/25 BUN/Creatinine Ratio 14.9 (10-20) 01/31/25 Glucose Level 145 mg/dl (70-99(Fasting)) H 01/31/25 Ca 8.8 mg/dl (8.6-10.3) 01/31/25 Total Bilirubin 0.4 mg/dl (0.2-1.0) 01/31/25 AST/SGOT 18 U/L (13-39) 01/31/25 ALT/SGPT 21 U/L (7-52) 01/31/25 Alkaline Phosphatase 127 U/L (34-104) H 01/31/25 Total Protein 6.7 gm/dl (6.0-8.3) 01/31/25 Albumin 3.9 gm/dl (3.4-5.0) 01/31/25 Globulin 2.8 gm/dl (2.5-4.0) 01/31/25 Albumin/Globulin Ratio 1.4 (0.9-2) 01/31/25 Adenovirus (PCR) Not Detected (NotDetected) 01/31/25 B. parapertussis DNA (PCR) Not Detected (NotDetected) 01/18 02/11 B. pertussis DNA (PCR) Not Detected (NotDetected) 01/31/25 C. pneumoniae DNA (PCR) Not Detected (NotDetected) 5 Coronavirus Type OC43 (PCR) Not Detected (NotDetected) Coronavirus Type HKU1 (PCR) Not Detected (NotDetected) Coronavirus Type 229E (PCR) Not Detected (NotDetected) COVID-19 PCR Not Detected (NotDetected) 01/31/25 Coronavirus Type NL63 (PCR) Not Detected (NotDetected) Human Metapneumovirus (PCR) Not Detected (NotDetected) Influenza Virus Type A (PCR) Not Detected (NotDetected) Influenza Virus Type B (PCR) Not Detected (NotDetected) M. pneumoniae (PCR) Not Detected (NotDetected) 01/31/25 Parainfluenza Type 1 (PCR) Not Detected (NotDetected) 01/18 02/11 Parainfluenza Type 2 (PCR) Not Detected (NotDetected) 01/18 02/11 Parainfluenza Type 3 (PCR) Not Detected (NotDetected) 01/18 02/11 Parainfluenza Type 4 (PCR) Not Detected (NotDetected) 01/18 02/11 RSV (PCR) Not Detected (NotDetected) 01/31/25 Enterovirus/Rhinovirus (PCR) Not Detected (NotDetected) POC pH 7.45 (7.35-7.45) 01/31/25 POC pCO2 27 mmHg (35-46) L 01/31/25 POC pO2 216 mmHg (80-95) H 01/31/25 POC HCO3 19 baron/L (19-24) 01/31/25 POC Total CO2 20 mmol/L (24-31) L 01/31/25 POC Base Excess -5.0 baron/L (-9-1.8) 01/31/25 Chest X-Ray 01/31/25 Code Status & VTE Plan Code Status DNR/DNI VTE Prophylaxis Plan VTE Prophylaxis will be ordered: Yes Supervising Physician Co-Signing Physician Notes Patient seen and examined at bedside. Extensive conversation with patient and son regarding current clinical condition. Patient has significant life stressors currently, including loss of vision, loss of , difficulty at home with other situations as well. Patient very overwhelmed. Had recent carotid enterectomy as well. States she feels better since admission but still SOB, and very anxious. On exam, crackles noted throughout lung mackay with slight expiratory wheezing component. Tearful on exam. Complex case. Suspect patient had flash pulmonary edema in setting of fluid overload post carotid enterectomy which caused acute respiratory distress in setting of known significant cardiac disease s/p CABG and COPD. Likely strong anxiety component as well making flash pulmonary edema more likely. Other issues complicate clinical picture, including ocular ischemia, syncopal like episodes, acute adjustment disorder in setting of SIXTO and hx of chronic benzodiazepine use likely causing increased emotional lability. Tobacco use and severe vascular disease from tobacco use/lifestyle likely cause of PAD, ocular ischemia, and CAD. Syncopal like episodes described as dizziness with loss of tone in legs and collapse, no LOC noted. Differential is broad, suspect pseudoseizure like syndrome vs. stress induced vasovagal syndrome, but differential includes seizures, arrhythmia, cardiac valvular disease, carotid sinus hypersensitivity (in setting of recent surgery) Appreciate cardiology input on flash pulmonary edema given need to make sure medications do not worsen ocular ischemia. Appreciate psychiatry/psychology involvement given complex adjustment disorder in underlying SIXTO with hx of chronic benzodiazepine use. Appreciate neurology input on syncopal like episodes. Will treat with diuresis, duonebs, avoid systemic steroids in setting of significant ocular disease. Additional workup from medicine perspective will include as follows: ANCA and ROSANA testing to r/o autoimmune disorders tying together above diagnoses such as granulomatosis with polyangiitis/Bergers syndrome/other vasculitides (less likely but possible). Will attempt to discuss case with patients social work manager from [facility]. Minimize anticholinergic medications as much as possible. I have seen and discussed the case with the collaborating advanced practitioner. I agree with the above H&P. I have reviewed and confirmed the patients medical history, the findings on physical examination, and the patients diagnosis and treatment plan with Francheska Stauffer PA-C and agree with the information documented. I spent a total of 20 minutes coordinating, documenting, and providing care for this patient excluding time spent in the performance of separately billed services. All of the aforementioned completed outside of collaborating with the assigned advanced practitioner for a full treatment plan. I have reviewed the advanced practitioner's documentation, and I agree with, and take responsibility for the plan of care
--- NOTE | 2025-01-31 11:16 | Electrocardiogram Report ---
Test Reason : Blood Pressure : */* mmHG Vent. Rate : 97 BPM Atrial Rate : 97 BPM P-R Int : 146 ms QRS Dur : 74 ms QT Int : 360 ms P-R-T Axes : 75 28 47 degrees QTcB Int : 457 ms Normal sinus rhythm Possible Left atrial enlargement Anteroseptal infarct (cited on or before 27-Jan-2025) Abnormal ECG When compared with ECG of 27-Jan-2025 10:21, Premature ventricular complexes are no longer Present ST now depressed in Inferior leads Nonspecific T wave abnormality now evident in Inferior leads Confirmed by Ryland Hernandes ([id number]) on 01/31/2025 11:15:32 AM Referred By: REFERRED SELF Confirmed By: Ryland Hernandes
--- NOTE | 2025-01-31 11:16 | Electrocardiogram Report ---
Test Reason : Blood Pressure : */* mmHG Vent. Rate : 84 BPM Atrial Rate : 84 BPM P-R Int : 142 ms QRS Dur : 80 ms QT Int : 396 ms P-R-T Axes : 75 41 101 degrees QTcB Int : 467 ms Sinus rhythm with marked sinus arrhythmia with frequent Premature ventricular complexes Abnormal ECG When compared with ECG of 31-Jan-2025 06:37, (unconfirmed) Premature ventricular complexes are now Present Nonspecific T wave abnormality no longer evident in Inferior leads Confirmed by Ryland Hernandes ([id number]) on 01/31/2025 11:16:07 AM Referred By: REFERRED SELF Confirmed By: Ryland Hernandes
--- NOTE | 2025-01-31 11:53 | Cardiology Consultation ---
Date of Consultation January 31, 2025 Assessment & Plan (1) Acute on chronic heart failure with preserved ejection fraction (HFpEF): (2) Bilateral pleural effusion: (3) Acute hypoxic respiratory failure: (4) Ocular ischemic syndrome: (5) CAD (coronary artery disease): (6) Carotid artery stenosis: (7) PVD (peripheral vascular disease): Plan Patient admitted with worsening SOB/hypoxia, consistent with acute on chronic HFpEF with b/l pleural effusion on chest xray. Chest CTA negative for PE given recent admission/surgery. Started on IV furosemide 20 mg IV BID. Daily weight standing scale (it appears patient may be up about 5 lbs above baseline weight according to other measurements recently) Monitor I+O's Keep potassium 4-5. Keep magnesium > 2 Daily renal function and electrolytes She has been borderline hypotensive since her carotid vascular surgery treated with aggresome IV fluids on multiple occasions - this is likely contributory cause of her volume overload Update echo (results pending) Metoprolol on hold due to hypotension. After discussion with hospitalist, apparently there is concern with patient's worsening ocular ischemic disease and that metoprolol may be worsening her symptoms. Home dose was metoprolol succinate 25 mg daily. Monitor on telemetry. no history of Afib, but she does have a history of frequent PVC's and may ultimately need metoprolol 12.5 mg daily history of remote CAD s/p CABG Minimally elevated troponin in the 40's. No symptoms to suggest acute ACS. Continue ASA, statin. She is also on Plavix due to severe PVD BB on hold. Echo pending Patient reports headache currently -requesting Tylenol. -son is concerned with recent surgery and new severe headache. This was one of the symptoms vascular wanted them to monitor for given severe vascular disease and reperfusion symptoms. Message sent to hospitalist - ordering head CT Case discussed with Dr. Cisneros I spent a total of 60 minutes on the date of service in preparation, delivery, and documentation of the care provided to this patient, excluding any time spent in the performance of separately billed services. Trupti Sage PA-C Department of Cardiology, [facility] This chart was completed in part utilizing Speech Voice Recognition Software. Grammatical errors, random word insertions, pronoun errors, and incomplete sentences are an occasional consequence of this system due to software limitations, ambient noise, and hardware issues. Any formal questions or concerns about the content, text, or information contained within the body of this dictation should be directly addressed to the provider for clarification. Supervising Physician Co-Signing Physician Notes Attending attestation: Case reviewed with the advanced practitioner. I have personally performed a history and physical examination on the patient. I have reviewed the advanced practitioner's documentation on the date of service referenced in note, and I agree with, and take responsibility for the plan of care. Hold metoprolol. Allow some degree of permissive hypertension to allow perfusion to left eye. I spent a total of 20 minutes coordinating, documenting, and providing care for this patient excluding time spent in the performance of separately billed services or time spent by another provider. Servando Cisneros, DO History of Present Illness Reason for Consultation: HFpEF Requesting Physician: Constazna Olvera Attending Physician: Dr. Cisneros History of Present Illness Patient is a 79 year old female admitted to [facility] with worsening SOB. Symptoms started about 3 days ago with worsening SOB with exertion. She had carotid [place] on [place] [facility]. Following surgery she apparently had issues with hypotension, and treated with aggressive IV fluid resuscitation. Chest xray on 01/20/25 at [facility] demonstrated possible interstitial edema. On 01/27, patient presented to [facility] with dizziness. Concerns for hypotension and treated again with IV fluids. Patient denies sudden weight gain, swelling abdominal bloating. She does not take diuretic as an outpatient. Upon admission patient found to be hypoxic. Pulm edema noted on chest xray. Treated with IV lasix She reports her SOB has improved since admission. She is still having conversational dyspnea and becomes very tearful in the room when talking about her medical problems. Son at bedside and reports she is very anxious and her anxiety has been impacting her health as well. Patient's several months ago. They also report worsening eye disease that is causing her to slowly reduce her vision. 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 Patient denies recent chest pain. No palpitations. Ongoing dyspnea reported. [place] oing cough, wheeze. No LE edema. History includes: CAD status post CABG x 3 (OM, RCA, MORGAN) in 2014 (CABG did have MORGAN to LAD but target and graft poor and did not work at time of initial surgery - OM and RCA) Carotid artery stenosis status post right carotid endarterectomy in 2016 and recent left carotid endarterectomy with left carotid artery stent placement on 01/20/2025 PAD/PVD Hypertension Hyperlipidemia COPD Allergies Allergy/AdvReac Type Severity Reaction Status Date / Time duloxetine [From Cymbalta] Allergy Unknown Unknown Unverified 01/31/25 08:16 levofloxacin [From Levaquin] Allergy Unknown Unknown Unverified 01/31/25 08:16 mometasone furoate Allergy Unknown Unknown Unverified 01/31/25 08:16 [From Asmanex Twisthaler] Home Medications Medication Instructions Recorded Confirmed Type albuterol sulfate 90 mcg/actuation 2 puff inhalation Q4H PRN Wheezing 01/27/25 01/31/25 History aerosol inhaler atorvastatin 40 mg tablet 40 mg PO QAM 01/27/25 01/31/25 History clopidogrel 75 mg tablet 75 mg PO QAM 01/27/25 01/31/25 History dorzolamide 22.3 mg-timolol 6.8 1 drp OPR BID 01/27/25 01/31/25 History mg/mL eye drops ezetimibe 10 mg tablet 10 mg PO QAM 01/27/25 01/31/25 History lorazepam 0.5 mg tablet 0.25 mg PO BID 01/27/25 01/31/25 History metoprolol succinate 25 mg 25 mg PO QAM 01/27/25 01/31/25 History tablet,extended release 24 hr oxycodone 5 mg tablet 5 mg PO Q8H PRN Pain 01/27/25 01/31/25 History acetaminophen 500 mg tablet 1,000 mg PO TID PRN Pain 01/31/25 01/31/25 History aspirin 81 mg tablet,delayed 81 mg PO DAILY 01/31/25 01/31/25 History release cetirizine 10 mg capsule (Zyrtec) 10 mg PO DAILY PRN Allergy Symptoms 01/31/25 01/31/25 History cholecalciferol (vitamin D3) 25 25 mcg PO DAILY 01/31/25 01/31/25 History mcg (1,000 unit) capsule (Vitamin D3) famotidine 10 mg tablet 10 mg PO BID PRN heart burn 01/31/25 01/31/25 History nicotine 21 mg/24 hr daily 1 patch transdermal DAILY 01/31/25 01/31/25 History transdermal patch Patient History Medical History (Updated 01/31/25 @ 12:47 by King Flores DO) Generalized anxiety disorder Tobacco abuse PVD (peripheral vascular disease) PAD (peripheral artery disease) Glaucoma Ocular ischemic syndrome Pre-diabetes CAD (coronary artery disease) Carotid artery stenosis HLD (hyperlipidemia) HTN (hypertension) Surgical History (Updated 01/31/25 @ 10:45 by Francheska Stauffer PA-C) History of carotid endarterectomy History of coronary artery bypass graft x 3 Social History (Updated 01/31/25 @ 10:45 by Francheska Stauffer PA-C) Smoking Status: Current every day smoker Tobacco Type: Cigarettes Cigarettes Per Day: 1/2 pack per day; Second Hand Exposure: No; Do You Dip or Chew Tobacco: No; Tobacco Cessation Education Requested by Patient: No Hx Alcohol Use: No Hx Substance Use: No Preferred Language: Beninese Communication Ability: Effective 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 No erythema or drainage. Respiratory: + cough and + tachypneic; + not able to speak in complete sentence Auscultation: + diminished lung sounds, + crackles and + wheezes Cardiovascular: Rate/Rhythm: regular rate and regular rhythm Heart Sounds: no murmur Vessels: no JVD Extremities: no edema Neurologic: PERRL, EOMI, accommodation nl, no face palsy, no dysarthria Results & Data Vital Signs (Past 12 Hours) Vital Signs Temp Pulse Pulse Resp BP BP Pulse Ox 01/31/25 10:17 87 23 106/69 92 01/31/25 09:50 94 H 22 116/82 91 01/31/25 08:59 81 20 112/50 L 96 01/31/25 08:17 81 22 127/72 96 01/31/25 07:10 102 H 40 H 01/31/25 07:07 102 H 40 H 01/31/25 06:54 88 26 H 130/84 95 01/31/25 06:40 01/31/25 06:40 01/31/25 06:40 01/31/25 06:32 110 H 01/31/25 06:29 36.8 C 112 H 40 H 130/84 94 O2 Del Method O2 Flow Rate FiO2 01/31/25 10:17 Nasal Cannula 3 01/31/25 09:50 Nasal Cannula 3 01/31/25 08:59 Nasal Cannula 3 01/31/25 08:17 Nasal Cannula 3 01/31/25 07:10 BiPAP 50 01/31/25 07:07 50 01/31/25 06:54 BiPAP 01/31/25 06:40 BiPAP 01/31/25 06:40 BiPAP 01/31/25 06:40 BiPAP 01/31/25 06:32 01/31/25 06:29 BiPAP Laboratory Results Cardiac Enzymes 01/31/25 Range/Units 06:36 AST 18 (13-39) U/L Troponin I High Sens 11.5 (0-14) pg/ml CBC 01/31/25 Range/Units 06:36 WBC 8.04 (4.8-10.8) K/ul RBC 3.86 L (4.20-5.40) M/uL Hgb 11.2 L (12.0-16.0) g/dl Hct 35.7 L (37.0-47.0) % Plt Count 395 (130-400) K/uL Neut # (Auto) 4.64 (1.40-6.50) K/uL Lymph # (Auto) 2.49 (1.20-3.40) K/uL [place] # (Auto) 0.62 H (0.11-0.59) K/uL Eos # (Auto) 0.19 (0.00-0.50) K/uL Baso # (Auto) 0.05 (0.00-0.20) K/uL Comprehensive Metabolic Panel 01/31/25 Range/Units 06:36 Sodium 145 (136-145) mmol/L Potassium 4.3 (3.5-5.1) mmol/L Chloride 111 H (98-107) mmol/L Carbon Dioxide 27 (21-32) mmol/L BUN 13 (6-23) mg/dl Creatinine 0.87 (0.6-1.2) mg/dl Glucose 145 H (70-99(Fasting)) mg/dl Calcium 8.8 (8.6-10.3) mg/dl AST 18 (13-39) U/L ALT 21 (7-52) U/L Alkaline Phosphatase 127 H (34-104) U/L Total Protein 6.7 (6.0-8.3) gm/dl Albumin 3.9 (3.4-5.0) gm/dl Intake and Output 01/30/25 01/31/25 01/31/25 22:59 06:59 14:59 Intake Total 50 / 50 Output Total 1000 / 1000 Balance -950 / -950 Intake: IV 50 / 50 cefTRIAXone SODIUM 2,000 mg In 50 / 50 50 ml @ 100 mls/hr IV NOW STA Rx#:[id number] Output: Urine 1000 / 1000 Other: Weight 73.4 kg Weight Measurement Method Built in [facility] Diagnostic Findings Telemetry reviewed: NSR with PVC's. EKG reviewed from admission: NSR non specific ST/T wave abnormality in lateral leads. Chest xray report reviewed on admission: IMPRESSION: 1. Both CP angles are obliterated, suggesting mild pleural effusion. Unchanged. 2. Bilateral basal atelectasis bands were noted. Unchanged. 3. No gross interval change in comparison with the CTA chest dated on 01/27/2025. Chest CTA on admission 01/31/25: IMPRESSION: 1. No pulmonary emboli identified. 2. Cardiomegaly with interstitial pulmonary edema, small left and moderate right pleural effusions. 3. Mild bibasilar mucous plugging with dependent atelectasis. 4. Extensive atherosclerosis of the aorta and proximal great vessels remonstrated, not well evaluated secondary to contrast bolus timing. Prior outpatient data reviewed: Echo report reviewed dated April 2024: Interpretation Summary The examination is adequate to evaluate the referral indication. A trivial circumferential pericardial effusion is noted. The qualitative LV ejection fraction is 55-59% (normal). The LV wall thickness is normal. The left ventricular wall motion is normal. The left ventricular diastolic function is mildly abnormal (grade I). Mild mitral regurgitation is present. Mild tricuspid regurgitation is present. There is no evidence of pulmonary hypertension. Medications Administered Current Inpatient Medications Acetaminophen (Acetaminophen 325 Mg Tab) 650 mg PO Q4H PRN PRN Reason: Pain or Fever Stop: 03/02/25 11:54 Albuterol (Albut/Ipratrop 3mg/0.5mg Neb 3 Ml Vial) 3 ml NEB QIDR PRN; Protocol PRN Reason: Shortness Of Breath Or Wheezing Stop: 03/02/25 11:54 Aspirin (Aspirin 81 Mg Ectab) 81 mg PO DAILY [facility] Stop: 03/02/25 11:54 Atorvastatin Calcium (Atorvastatin 40 Mg Tab) 40 mg PO QAM [facility] Stop: 03/02/25 11:54 Clopidogrel Bisulfate (Clopidogrel Bisulfate 75 Mg Tab) 75 mg PO QAM [facility] Stop: 03/02/25 11:54 Dorzolamide/Timolol (Dorzolamide/Timolol 22.3/6.8mg/Ml 10 Ml Btl) 1 drops OPR BID [facility] Stop: 03/02/25 20:59 Ezetimibe (Ezetimibe 10 Mg Tab) 10 mg PO QAM [facility] Stop: 03/03/25 08:59 Enoxaparin Sodium (Enoxaparin Inj 40 Mg/0.4 Ml Syr) 40 mg SQ HS [facility] Stop: 03/02/25 20:59 Famotidine (Famotidine 20 Mg Tab) 20 mg PO DAILY PRN PRN Reason: Heartburn Stop: 03/02/25 11:54 Furosemide (Furosemide Inj 20 Mg/2 Ml Vial) 20 mg IV BID17 [facility] Stop: 03/02/25 16:59 Lorazepam (Lorazepam 0.5 Mg Tab) 0.5 mg PO BID [facility] Stop: 03/02/25 20:59 Melatonin (Melatonin 3 Mg Tab) 6 mg PO HS PRN PRN Reason: Sleep Stop: 03/02/25 20:59 Miscellaneous (Remove Nicoderm Patch) 1 each N/A DAILY@0859 [facility] Stop: 03/03/25 08:58 Nicotine (Nicotine 21 Mg/24 Hr Tdsy) 1 patch TD QAM [facility] Stop: 03/02/25 10:14 Ondansetron HCl (Ondansetron Inj 2 Mg/Ml 2 Ml Vial) 4 mg IV Q6H PRN PRN Reason: Nausea Stop: 03/02/25 11:54 Oxycodone HCl (Oxycodone Hcl Ir 5 Mg Tab (Immediate Release)) 5 mg PO Q8H PRN PRN Reason: Severe Pain (Scale 7, 8, 9,10) Stop: 02/14/25 11:54 Polyethylene Glycol (Polyethylene (Miralax) 17 Gm Pack) 17 gm PO DAILY PRN PRN Reason: Constipation Stop: 03/02/25 11:54 Potassium Chloride (Potassium Chloride Crtab 20 Meq Tabcr) 20 meq PO QAM [facility] Stop: 03/03/25 08:59 Vitamin D (Cholecalciferol 25 Mcg (1000 Units) Tab) 25 mcg PO DAILY [facility] Stop: 03/03/25 08:59
[2025-01-31] MEDS ORDERED: ONDANSETRON INJ 2 MG/ML 2 ML VIAL IV PRN (11:55)
[2025-01-31] MEDS: NICOTINE 21 MG/24 HR TDSY TD SCH (12:54)
[2025-01-31] MEDS: DORZOLAMIDE/TIMOLOL 22.3/6.8MG/ML 10 ML BTL OPR STA (12:54)
[2025-01-31] MEDS: ATORVASTATIN 40 MG TAB PO SCH (12:55)
[2025-01-31] MEDS: CLOPIDOGREL BISULFATE 75 MG TAB PO SCH (12:55)
[2025-01-31] MEDS: ASPIRIN 81 MG ECTAB PO SCH (12:55)
[2025-01-31] MEDS: LORazepam 0.5 MG TAB PO PRN (13:23)
--- NOTE | 2025-01-31 14:51 | CT Scan Report ---
CT head/brain wo con CLINICAL HISTORY: headache, recent vascular surgery. TECHNIQUE: Multiple axial CT images of the head were obtained without contrast. A dose lowering tech nique was utilized adhering to the principles of ALARA. CT DOSE: 625.8 mGy.cm COMPARISON: None FINDINGS: No intracranial hemorrhage seen. No mass effect, midline shift, or hydrocephalus. There is severe patchy periventricular hypodensity which is nonspecific but usually represents chronic small v essel ischemic change. Visualized paranasal sinuses are clear. No mastoid effusion. No skull fracture seen. IMPRESSION: No acute findings. ACT 112: Negative or not required by law. The above report was generated using voice recognition software. It may contain grammatical, syntax o r spelling errors. Electronically signed by: Ronald Zarate M.D. 01/31/2025 2:50 PM
[2025-01-31] MEDS: oxyCODONE HCL IR 5 MG TAB (IMMEDIATE RELEASE) PO PRN (14:52)
[2025-01-31] MEDS: ACETAMINOPHEN 325 MG TAB PO PRN (14:53)
[2025-01-31] MEDS: FUROSEMIDE INJ 20 MG/2 ML VIAL IV SCH (16:16)
[2025-01-31] MEDS: MELATONIN 3 MG TAB PO PRN (20:08)
[2025-01-31] MEDS: ENOXAPARIN INJ 40 MG/0.4 ML SYR SQ SCH (20:09)
[2025-01-31] MEDS: DORZOLAMIDE/TIMOLOL 22.3/6.8MG/ML 10 ML BTL OPR SCH (20:10)
[2025-01-31] MEDS ORDERED: LORazepam 0.5 MG TAB PO SCH (21:00)
[2025-02-01 06:20] LABS: Basophils # (auto) 0.01 K/uL (0.00-0.20); Basophils % (auto) 0.1 %; Eosinophils # (auto) 0.02 K/uL (0.00-0.50); Eosinophils % (auto) 0.3 %; Hemoglobin 9.3 g/dl (12.0-16.0); Immature Granulocytes # (auto) 0.03 K/uL (0.01-0.20); Immature Granulocytes % (auto) 0.4 %; Lymphocytes # (auto) 1.21 K/uL (1.20-3.40); Lymphocytes % (auto) 16.6 %; Mean Corpuscular Hemoglobin 28.5 pg (25.0-34.0); Mean Corpuscular Hgb Conc 32.1 g/dL (32.0-36.0); Mean Platelet Volume 9.3 fL (9.4-12.4); Monocytes # (auto) 0.71 K/uL (0.11-0.59); Monocytes % (auto) 9.8 %; Neutrophils % (auto) 72.8 %; Platelet Count 318 K/uL (130-400); RDW Coefficient of Variation 15.2 % (11.5-14.5); RDW Standard Deviation 48.8 fL (36.4-46.3); Red Blood Count 3.26 M/uL (4.20-5.40); White Blood Count 7.28 K/ul (4.8-10.8)
[2025-02-01 06:42] LABS: Albumin Globulin Ratio 1.5 (0.9-2); Albumin Level 3.4 gm/dl (3.4-5.0); BUN Creatinine Ratio 14.7 (10-20); Bilirubin,Total 0.4 mg/dl (0.2-1.0); Calcium 8.2 mg/dl (8.6-10.3); Chol HDL Ratio 2.3 (0-5); Globulin 2.3 gm/dl (2.5-4.0); Magnesium 1.9 mg/dl (1.7-2.4); Potassium 3.5 mmol/L (3.5-5.1); Total Protein 5.7 gm/dl (6.0-8.3)
[2025-02-01 07:26] LABS: Estimated Average Glucose 123 mg/dl; Hemoglobin A1C 5.9 % (4.5-5.6)
[2025-02-01] MEDS: ALBUT/IPRATROP 3MG/0.5MG NEB 3 ML VIAL NEB PRN (08:26)
[2025-02-01] MEDS ORDERED: POTASSIUM CHLORIDE CRTAB 20 MEQ TABCR PO SCH (09:00)
[2025-02-01] MEDS: FAMOTIDINE 20 MG TAB PO PRN (09:43)
[2025-02-01] MEDS: POTASSIUM CHLORIDE CRTAB 20 MEQ TABCR PO STA (09:43)
[2025-02-01] MEDS: MAGNESIUM OXIDE 400 MG TAB PO SCH (09:44)
[2025-02-01] MEDS: EZETIMIBE 10 MG TAB PO SCH (09:46)
[2025-02-01] MEDS: CHOLECALCIFEROL 25 MCG (1000 UNITS) TAB PO SCH (09:46)
[2025-02-01] MEDS: POLYETHYLENE (MIRALAX) 17 GM PACK PO PRN (09:55)
[2025-02-01] MEDS: POTASSIUM CHLORIDE CRTAB 20 MEQ TABCR PO SCH (09:55)
--- NOTE | 2025-02-01 10:23 | Hospitalist Progress Note ---
Date of Service February 01, 2025 Assessment & Plan (1) Acute hypoxic respiratory failure: (2) Pulmonary edema: (3) Bilateral pleural effusion: (4) Acute on chronic heart failure with preserved ejection fraction (HFpEF): (5) CAD (coronary artery disease): (6) Generalized anxiety disorder: Plan This is a 79-year-old female who has a significant past medical history of CAD status post CABG x 3 in 2014, carotid artery stenosis status post right carotid endarterectomy in 2016 and recent left carotid endarterectomy with left carotid artery stent placement on 01/20/2025, PAD/PVD, history of hypertension, hyperlipidemia, COPD, ocular ischemia, neovascular glaucoma and generalized anxiety disorder who presents to ED secondary to acute onset shortness of breath prior to arrival. #Acute hypoxic respiratory failure #Acute Pulmonary Edema #Bilateral pleural effusion, moderate R, small left #Acute on chronic heart failure with preserved EF #Elevated troponin admit to PCU pt weaned off bipap received 40mg IV lasix in ED, and 20mg in evening on 02/01 strict I and O, daily weights Echo: LVEF 55%, mild MR, grade 2 diastolic dysfunction, subtle small sized anteroseptal wall motion abnormality Cardiology on board Pt with soft blood pressures this morning, but MAP is adequate suspect elevated trop in setting of demand ischemia due to chf/hypoxia, remained flat will hold further doses of lasix for right now, -1230ml thus far replace potassium and magnesium to keep > 4.0 and 2.0 respectively Vasculitis/autoimmune work up pending CXR is improved I have reached out to pts primary insurance processing clerk to discuss her current disease state and possibility of adding midodrine Discussed ECG with Trupti Sage - felt NSR with PVCS #CAD hx of CABG x 3 on asa, plavix, statin and zetia pt recently on metoprolol, but was instructed by vascular to stop this due to lower blood pressure will continue to hold metoprolol for now, but will defer to cardiology regarding resuming #Carotid artery Disease s/p L CEA and L carotid artery stent 01/[address] Rees, hx of R CEA in past #PAD/P[place] [facility] [facility] [place] incision healing well, continue asa, plavix, statin #Ocular ischemia syndrome #Glaucoma follows Dr. Harrison, continue eye gtts, gets inj as outpt last seen in clinic 3/25, OD and OS 20/160 with evidence of progressive worsening per notes guarded visual prognosis attempted to reach out but currently on DND on tiger text #Generalized anxiety disorder pt with significant anx, tearful during exam suffered from anxiety all of life, but recently passed in October and recent hospitalizations/surgery Son reports was on lorazepam 1mg BID for years, PCP weaning down and on 0.25mg BID Pt feels this really isn't helping and has trialed 3 prior SSRIS w/o benefit/intolerance will consult psych, feel pt would be best managed by psych as an outpt to assist with counseling/med management #dizziness, ?drop attack son reports pt with episodes of, "dizziness," described as losing neuromuscular tone starting in her legs to the point she just falls requesting neuro consult, last had on 01/27 when presented to ED #COPD #Tobacco abuse no acute exac continue nicotine patch, pt down from 2ppd to 5-10 cigs encourage cessation #Anemia: recent outpt w/u revealed normal iron stores, hgb down to 9.3, pt denies any bleeding episodes, melena, continue to monitor DVT ppx: SQ Lovenox DNR/DNI PCP: Dr. Goetz Dispo: admit to PCU, PT/OT consulted, working on oxygen wean, awaiting psych and neuro consults, expect to remain hospitalized 1-2 more days Pt was seen and examined in collaboration with Dr. Vallecillo, please see addendum I spent a total of 50 minutes coordinating, documenting and providing care for this patient excluding time spent in the performance of separately billed services or time spent by another provider/QHP. Son is Stephane Pope, Admission and Anticipated Discharge Date Admission Date: January 31, 2025 Supervising Physician Co-Signing Physician Notes Patient seen and examined at bedside. Son also present. Patient very tearful this morning and requested that I talk to his son in regards to plan for today. Pulmonary edema and acute hypoxic respiratory failure appears to be resolving with diuresis and supports diagnosis of pulmonary flash edema in setting of fluid overload, recent surgeries, and significant stressors. Discussed plan for today of discussing case with psychiatry and neurology, appreciate cardiology recommendations, will reach out to patient insurance processing clerk outpatient in order to get better understanding of medications and their interactions with other pathologies here, and titrate off of oxygen. Suspect strong adjustment disorder/SIXTO/complicated grief overlap with above pathologies. I have seen and discussed the case with the collaborating advanced practitioner. I agree with the above H&P. I have reviewed and confirmed the patients medical history, the findings on physical examination, and the patients diagnosis and treatment plan with Francheska Stauffer PA-C and agree with the information documented. I spent a total of 20 minutes coordinating, documenting, and providing care for this patient excluding time spent in the performance of separately billed services. All of the aforementioned completed outside of collaborating with the assigned advanced practitioner for a full treatment plan. I have reviewed the advanced practitioner's documentation, and I agree with, and take responsibility for the plan of care Subjective Pt seen and examined in 456-2. She is sitting up in bedside chair. She is still having some SOB this a.m. She is requesting nebulizer therapy. She reports feeling better than she did yesterday. She at bedside states she was able to get her to chair w/o difficulty. Pt denies f/c/s, chest pain, n/v/d, abd pain. Review of Systems Review of Systems: All systems reviewed & are unremarkable except as noted in HPI & below Physical Exam Physical Exam: Gen: WD/WN, F, sitting up in bedside chair, NAD, A&O x3 HEENT: Normocephalic, atraumatic, conjunctivae moist, sclerae anicteric, mucous membranes moist. Lung: Clear to Auscultation bilaterally, diminished at bases, no wheezes/rales/rhonchi Heart: Regular rate, regular rhythm with freq ectopy, no murmurs, rubs, or gallops Abdomen: Soft, NT, ND +BS x 4 Extremities: No edema Skin: Warm, no rash, negative turgor. Results & Data Results & Data Vital Signs (Past 12 Hours) Vital Signs Temp Pulse Resp BP Pulse Ox O2 Del Method O2 Flow Rate 02/01/25 08:26 110 H 20 97 Nasal Cannula 2 02/01/25 07:31 36.7 C 45 L 18 87/48 L 96 Nasal Cannula 2 02/01/25 02:34 92/58 L 02/01/25 02:24 36.6 C 78 18 88/50 L 98 Nasal Cannula 2 01/31/25 22:50 83 18 132/110 H 96 Nasal Cannula 2 Laboratory Results Short CBC 02/01/25 Range/Units 05:33 WBC 7.28 (4.8-10.8) K/ul Hgb 9.3 L (12.0-16.0) g/dl Hct 29.0 L (37.0-47.0) % Plt Count 318 (130-400) K/uL BMP 02/01/25 05:33 Sodium 136 D Potassium 3.5 Chloride 103 Carbon Dioxide 26 BUN 14 Creatinine 0.95 Glucose 117 H Calcium 8.2 L Liver Function 02/01/25 Range/Units 05:33 Total Bilirubin 0.4 (0.2-1.0) mg/dl AST 13 (13-39) U/L ALT 15 (7-52) U/L Alkaline Phosphatase 98 (34-104) U/L Albumin 3.4 (3.4-5.0) gm/dl I have independently reviewed and interpreted patient's cbc, bmp, mag, trop, lipid panel, a1c Diagnostic Findings Chest X-Ray 02/01/25 10:43 XR chest 1V portable CLINICAL HISTORY: hypoxia; reassess pulm edema/pleural effusions COMPARISON STUDY: 01/31/2025 FINDINGS: Stable CABG. Stable mild cardiomegaly without pulmonary vascular congestion. Stable hyperexpanded lungs. There is mild stranding opacity in the lung bases, improved. No other consolidation or pleural effusion. No pneumothorax. IMPRESSION: Mild stranding in the lung bases, improved. ACT 112: Negative or not required by law. Electronically signed by: Ronald Zarate M.D. 02/01/2025 11:07 AM Medications Administered Current Inpatient Medications Acetaminophen (Acetaminophen 325 Mg Tab) 650 mg PO Q4H PRN PRN Reason: Pain or Fever Stop: 03/02/25 11:54 Last Admin: 02/01/25 10:08 Dose: 650 mg Albuterol (Albut/Ipratrop 3mg/0.5mg Neb 3 Ml Vial) 3 ml NEB QIDR PRN; Protocol PRN Reason: Shortness Of Breath Or Wheezing Stop: 03/02/25 11:54 Last Admin: 02/01/25 08:26 Dose: 3 ml Aspirin (Aspirin 81 Mg Ectab) 81 mg PO DAILY [facility] Stop: 03/02/25 11:54 Last Admin: 02/01/25 09:46 Dose: 81 mg Atorvastatin Calcium (Atorvastatin 40 Mg Tab) 40 mg PO QAM [facility] Stop: 03/02/25 11:54 Last Admin: 02/01/25 09:46 Dose: 40 mg Clopidogrel Bisulfate (Clopidogrel Bisulfate 75 Mg Tab) 75 mg PO QAM [facility] Stop: 03/02/25 11:54 Last Admin: 02/01/25 09:46 Dose: 75 mg Dorzolamide/Timolol (Dorzolamide/Timolol 22.3/6.8mg/Ml 10 Ml Btl) 1 drops OPR BID [facility] Stop: 03/02/25 20:59 Last Admin: 02/01/25 09:47 Dose: 1 drops Ezetimibe (Ezetimibe 10 Mg Tab) [facility] [place] Stop: 03/03/25 08:59 Last Admin: 02/01/25 09:46 Dose: 10 mg Enoxaparin Sodium (Enoxaparin Inj 40 Mg/0.4 Ml Syr) 40 mg SQ HS [facility] Stop: 03/02/25 20:59 Last Admin: 01/31/25 20:09 Dose: 40 mg Famotidine (Famotidine 20 Mg Tab) 20 mg PO DAILY PRN PRN Reason: Heartburn Stop: 03/02/25 11:54 Last Admin: 02/01/25 09:43 Dose: 20 mg Furosemide (Furosemide Inj 20 Mg/2 Ml Vial) 20 mg IV BID17 [facility] Stop: 03/02/25 16:59 Last Admin: 01/31/25 16:16 Dose: 20 mg Lorazepam (Lorazepam 0.5 Mg Tab) 0.25 mg PO Q6 PRN PRN Reason: Anxiety Stop: 03/02/25 17:59 Last Admin: 02/01/25 09:54 Dose: 0.25 mg Magnesium Oxide (Magnesium Oxide 400 Mg Tab) 400 [facility] [place] Stop: 03/03/25 08:59 Last Admin: 02/01/25 09:44 Dose: 400 mg Melatonin (Melatonin 3 Mg Tab) 6 mg PO HS PRN PRN Reason: Sleep Stop: 03/02/25 20:59 Last Admin: 01/31/25 20:08 Dose: 6 mg Miscellaneous (Remove Nicoderm Patch) 1 each N/A DAILY@0859 [facility] Stop: 03/03/25 08:58 Last Admin: 02/01/25 10:08 Dose: 1 each Nicotine (Nicotine 21 Mg/24 Hr Tdsy) 1 patch TD QAM [facility] Stop: 03/02/25 10:14 Last Admin: 02/01/25 09:47 Dose: 1 patch Ondansetron HCl (Ondansetron Inj 2 Mg/Ml 2 Ml Vial) 4 mg IV Q6H PRN PRN Reason: Nausea Stop: 03/02/25 11:54 Oxycodone HCl (Oxycodone Hcl Ir 5 Mg Tab (Immediate Release)) 5 mg PO Q8H PRN PRN Reason: Severe Pain (Scale 7, 8, 9,10) Stop: 02/14/25 11:54 Last Admin: 01/31/25 23:02 Dose: 5 mg Polyethylene Glycol (Polyethylene (Miralax) 17 Gm Pack) 17 gm PO DAILY PRN PRN Reason: Constipation Stop: 03/02/25 11:54 Last Admin: 02/01/25 09:55 Dose: 17 gm Potassium Chloride (Potassium Chloride Crtab 20 Meq Tabcr) 20 meq PO BID [facility] Stop: 03/03/25 08:59 Last Admin: 02/01/25 09:55 Dose: 20 meq Vitamin D (Cholecalciferol 25 Mcg (1000 Units) Tab) 25 mcg PO DAILY [facility] Stop: 03/03/25 08:59 Last Admin: 02/01/25 09:46 Dose: 25 mcg (2) Pulmonary edema Chronicity: acute Qualified Code(s): J81.0 - Acute pulmonary edema
--- NOTE | 2025-02-01 11:09 | XRay Report ---
XR chest 1V portable CLINICAL HISTORY: hypoxia; reassess pulm edema/pleural effusions COMPARISON STUDY: 01/31/2025 FINDINGS: Stable CABG. Stable mild cardiomegaly without pulmonary vascular congestion. Stable hyperex panded lungs. There is mild stranding opacity in the lung bases, improved. No other consolidation or pleural effusion. No pneumothorax. IMPRESSION: Mild stranding in the lung bases, improved. ACT 112: Negative or not required by law. Electronically signed by: Ronald Zarate M.D. 02/01/2025 11:07 AM
--- NOTE | 2025-02-01 11:47 | Electrocardiogram Report ---
Test Reason : Blood Pressure : */* mmHG Vent. Rate : 78 BPM Atrial Rate : 258 BPM P-R Int : * ms QRS Dur : 114 ms QT Int : 410 ms P-R-T Axes : 116 21 141 degrees QTcB Int : 467 ms Sinus rhythm with PVCs in a pattern of ventricular bigeminy Minimal voltage criteria for LVH, may be normal variant Anteroseptal infarct (cited on or before 27-Jan-2025) T wave abnormality, consider lateral ischemia Abnormal ECG Confirmed by Ryland Hernandes ([id number]) on 02/01/2025 11:47:44 AM Referred By: REFERRED SELF Confirmed By: Ryland Hernandes
--- NOTE | 2025-02-01 12:24 | Cardiology Progress Note ---
Date of Service February 01, 2025 Assessment & Plan (1) Acute on chronic heart failure with preserved ejection fraction (HFpEF): (2) Bilateral pleural effusion: (3) Acute hypoxic respiratory failure: (4) Ocular ischemic syndrome: (5) CAD (coronary artery disease): (6) Carotid artery stenosis: (7) PVD (peripheral vascular disease): (8) COPD exacerbation: Plan 01/31/25: Patient admitted with worsening SOB/hypoxia, consistent with acute on chronic HFpEF with b/l pleural effusion on chest xray. Chest CTA negative for PE given recent admission/surgery. Started on IV furosemide 20 mg IV BID. Daily weight standing scale (it appears patient may be up about 5 lbs above [facility] weight according to other measurements recently) Monitor I+O's Keep potassium 4-5. Keep magnesium > 2 Daily renal function and electrolytes She has been borderline hypotensive since her carotid vascular surgery treated with aggresome IV fluids on multiple occasions - this is likely contributory cause of her volume overload Update echo (results pending) Metoprolol on hold due to hypotension. After discussion with hospitalist, apparently there is concern with patient's worsening ocular ischemic disease and that metoprolol may be worsening her symptoms. Home dose was metoprolol succinate 25 mg daily. Monitor on telemetry. no history of Afib, but she does have a history of frequent PVC's and may ultimately need metoprolol 12.5 mg daily history of remote CAD s/p CABG Minimally elevated troponin in the 40's. No symptoms to suggest acute ACS. Continue ASA, statin. She is also on Plavix due to severe PVD BB on hold. Echo pending Patient reports headache currently -requesting Tylenol. -son is concerned with recent surgery and new severe headache. This was one of the symptoms vascular wanted them to monitor for given severe vascular disease and reperfusion symptoms. Message sent to hospitalist - ordering head CT 02/01: Improved respiratory status this morning after multiple doses of IV lasix yesterday and Nebulizer treatments. repeat chest xray ordered with improved pulm edema and no pleural effusions. Appears euvolemic on exam today. Will not order additional diuresis given dizziness and hypotension Continue nebs. Ongoing wheeze noted, likely some component of COPD exacerbation as well. Wean supplemental O2 as needed. Metoprolol on hold due to hypotension and concerns for BB contributing to ocular ischemia. Persistent dizziness reported. May or may not be related to hypotension we could consider trial of midodrine if needed Patient/son requesting neurology evaluation due to these "drop attacks" she has been having and concern for seizure like activity. Continue all other outpatient meds including ASA, plavix, statin, zetia. Case discussed with Dr. Cisneros I spent a total of 30 minutes on the date of service in preparation, delivery, and documentation of the care provided to this patient, excluding any time spent in the performance of separately billed services. Trupti Sage PA-C Department of Cardiology, [facility] This chart was completed in part utilizing Speech Voice Recognition Software. Grammatical errors, random word insertions, pronoun errors, and incomplete sentences are an occasional consequence of this system due to software limitations, ambient noise, and hardware issues. Any formal questions or concerns about the content, text, or information contained within the body of this dictation should be directly addressed to the provider for clarification. Admission and Anticipated Discharge Date Admission Date: January 31, 2025 Supervising Physician Co-Signing Physician Notes Attending attestation: Case reviewed with the advanced practitioner. I have personally performed a history and physical examination on the patient. I have reviewed the advanced practitioner's documentation on the date of service referenced in note, and I agree with, and take responsibility for the plan of care. Chest x-ray improved. Mild wheezing noted on exam Discontinue IV furosemide. Continue DuoNebs. Patient prefers to avoid corticosteroids due to her ischemic eye disease. Continue Lovenox for DVT prophylaxis. Servando Cisneros, DO Subjective Patient resting in chair. SOB improved from yesterday. Able to speak in c omplete sentences and no conversational dyspnea. SOB also improved with ambulation in the room. She is again very tearful when we discuss her medical issues. With repositioning during examination she had a "dizzy" spell. She reports this is what she has been experiencing at home, but this one was just "in her head". She denies room spinning or vertigo symptoms, however this was exacerbated by movement of her head/leaning forward. No chest pain reported. no palpitations. Review of Systems Review of Systems: All systems reviewed & are unremarkable except as noted in HPI & below Physical Exam Constitutional: WD/WN, vitals as above + ill appearing Respiratory: able to speak in complete sentences; no cough and not tachypneic Auscultation: + diminished lung sounds and + wheezes; no crackles Cardiovascular: Rate/Rhythm: regular rate and regular rhythm Heart Sounds: no murmur Vessels: no JVD Extremities: no edema Neurologic: PERRL, EOMI, accommodation nl, no face palsy, no dysarthria Results & Data Vital Signs (Past 12 Hours) Vital Signs Temp Pulse Resp BP Pulse Ox O2 Del Method O2 Flow Rate 02/01/25 11:18 36.3 C L 52 L 19 91/44 L 97 Nasal Cannula 02/01/25 11:12 87 18 Nasal Cannula 02/01/25 08:26 110 H 20 97 Nasal Cannula 2 02/01/25 07:31 36.7 C 45 L 18 87/48 L 96 Nasal Cannula 2 02/01/25 02:34 92/58 L 02/01/25 02:24 36.6 C 78 18 88/50 L 98 Nasal Cannula 2 Laboratory Results Cardiac Enzymes 01/31/25 01/31/25 02/01/25 Range/Units 15:38 22:20 05:33 AST 13 (13-39) U/L Troponin I High Sens 41.2 H 35.3 H (0-14) pg/ml Lipids 02/01/25 Range/Units 05:33 Triglycerides 98 (0-150) mg/dl Cholesterol 112 (0-200) mg/dl HDL Cholesterol 48 mg/dl Cholesterol/HDL Ratio 2.3 (0-5) CBC 02/01/25 Range/Units 05:33 WBC 7.28 (4.8-10.8) K/ul RBC 3.26 L (4.20-5.40) M/uL Hgb 9.3 L (12.0-16.0) g/dl Hct 29.0 L (37.0-47.0) % Plt Count 318 (130-400) K/uL Neut # (Auto) 5.30 (1.40-6.50) K/uL Lymph # (Auto) 1.21 (1.20-3.40) K/uL Winkler # (Auto) 0.71 H (0.11-0.59) K/uL Eos # (Auto) 0.02 (0.00-0.50) K/uL Baso # (Auto) 0.01 (0.00-0.20) K/uL Comprehensive Metabolic Panel 04/15/25 Range/Units 05:33 Sodium 136 D (136-145) mmol/L Potassium 3.5 (3.5-5.1) mmol/L Chloride 103 (98-107) mmol/L Carbon Dioxide 26 (21-32) mmol/L BUN 14 (6-23) mg/dl Creatinine 0.95 (0.6-1.2) mg/dl Glucose 117 H (70-99(Fasting)) mg/dl Calcium 8.2 L (8.6-10.3) mg/dl AST 13 (13-39) U/L ALT 15 (7-52) U/L Alkaline Phosphatase 98 (34-104) U/L Total Protein 5.7 L (6.0-8.3) gm/dl Albumin 3.4 (3.4-5.0) gm/dl Diagnostic Findings Telemetry reviewed: NSR with runs of ventricular bigeminy and frequent PVC's EKG this morning reviewed: NSR with ventricular bigeminy old anteroseptal infarct, previously noted T wave abnormality in lateral leads Echo report reviewed normal LVEF at 55% Subtle small wall motion abnormality in the anteroseptal wall. 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 Stable mild cardiomegaly without pulmonary vascular congestion. Stable hyperexpanded lungs. There is mild stranding opacity in the lung bases, improved. No other consolidation or pleural effusion. No pneumothorax. IMPRESSION: Mild stranding in the lung bases, improved. Medications Administered Current Inpatient Medications Acetaminophen (Acetaminophen 325 Mg Tab) 650 mg PO Q4H PRN PRN Reason: Pain or Fever Stop: 03/02/25 11:54 Last Admin: 02/01/25 10:08 Dose: 650 mg Albuterol (Albut/Ipratrop 3mg/0.5mg Neb 3 Ml Vial) 3 ml NEB QIDR PRN; Protocol PRN Reason: Shortness Of Breath Or Wheezing Stop: 03/02/25 11:54 Last Admin: 02/01/25 10:59 Dose: 3 ml Albuterol (Albut/Ipratrop 3mg/0.5mg Neb 3 Ml Vial) 3 ml NEB TIDR LATASHA; Protocol Stop: 03/03/25 12:59 Aspirin (Aspirin 81 Mg Ectab) 81 mg PO DAILY [facility] Stop: 03/02/25 11:54 Last Admin: 02/01/25 09:46 Dose: 81 mg Atorvastatin Calcium (Atorvastatin 40 Mg Tab) 40 mg PO QAM [facility] Stop: 03/02/25 11:54 Last Admin: 02/01/25 09:46 Dose: 40 mg Clopidogrel Bisulfate (Clopidogrel Bisulfate 75 Mg Tab) [facility] [place] Stop: 03/02/25 11:54 Last Admin: 02/01/25 09:46 Dose: 75 mg Dorzolamide/Timolol (Dorzolamide/Timolol 22.3/6.8mg/Ml 10 Ml Btl) 1 drops OPR BID [facility] Stop: 03/02/25 20:59 Last Admin: 02/01/25 09:47 Dose: 1 drops Ezetimibe (Ezetimibe 10 Mg Tab) [facility] [place] Stop: 03/03/25 08:59 Last Admin: 02/01/25 09:46 Dose: 10 mg Enoxaparin Sodium (Enoxaparin Inj 40 Mg/0.4 Ml Syr) 40 mg SQ HS [facility] Stop: 03/02/25 20:59 Last Admin: 01/31/25 20:09 Dose: 40 mg Famotidine (Famotidine 20 Mg Tab) 20 mg PO DAILY PRN PRN Reason: Heartburn Stop: 03/02/25 11:54 Last Admin: 02/01/25 09:43 Dose: 20 mg Furosemide (Furosemide Inj 20 Mg/2 Ml Vial) 20 mg IV BID17 [facility] Stop: 03/02/25 16:59 Last Admin: 01/31/25 16:16 Dose: 20 mg Lorazepam (Lorazepam 0.5 Mg Tab) 0.25 mg PO Q6 PRN PRN Reason: Anxiety Stop: 03/02/25 17:59 Last Admin: 02/01/25 09:54 Dose: 0.25 mg Magnesium Oxide (Magnesium Oxide 400 Mg Tab) [facility] [place] Stop: 03/03/25 08:59 Last Admin: 02/01/25 09:44 Dose: 400 mg Melatonin (Melatonin 3 Mg Tab) 6 mg PO HS PRN PRN Reason: Sleep Stop: 03/02/25 20:59 Last Admin: 01/31/25 20:08 Dose: 6 mg Miscellaneous (Remove Nicoderm Patch) 1 each N/A DAILY@0859 [facility] Stop: 03/03/25 08:58 Last Admin: 02/01/25 10:08 Dose: 1 each Nicotine (Nicotine 21 Mg/24 Hr Tdsy) 1 patch TD QAM [facility] Stop: 03/02/25 10:14 Last Admin: 02/01/25 09:47 Dose: 1 patch Ondansetron HCl (Ondansetron Inj 2 Mg/Ml 2 Ml Vial) 4 mg IV Q6H PRN PRN Reason: Nausea Stop: 03/02/25 11:54 Oxycodone HCl (Oxycodone Hcl Ir 5 Mg Tab (Immediate Release)) 5 mg PO Q8H PRN PRN Reason: Severe Pain (Scale 7, 8, 9,10) Stop: 02/14/25 11:54 Last Admin: 01/31/25 23:02 Dose: 5 mg Polyethylene Glycol (Polyethylene (Miralax) 17 Gm Pack) 17 gm PO DAILY PRN PRN Reason: Constipation Stop: 03/02/25 11:54 Last Admin: 02/01/25 09:55 Dose: 17 gm Potassium Chloride (Potassium Chloride Crtab 20 Meq Tabcr) 20 meq PO BID [facility] Stop: 03/03/25 08:59 Last Admin: 02/01/25 09:55 Dose: 20 meq Vitamin D (Cholecalciferol 25 Mcg (1000 Units) Tab) 25 mcg PO DAILY [facility] Stop: 03/03/25 08:59 Last Admin: 02/01/25 09:46 Dose: 25 mcg
[2025-02-01] MEDS: ALBUT/IPRATROP 3MG/0.5MG NEB 3 ML VIAL NEB SCH (13:59)
[2025-02-01] MEDS ORDERED: ALBUT/IPRATROP 3MG/0.5MG NEB 3 ML VIAL NEB SCH (14:00)
[2025-02-01] MEDS: SODIUM CHLORIDE 0.9% 500 ML IV ONE (15:19)
--- NOTE | 2025-02-01 16:24 | Neurology Consultation ---
Date of Consultation February 01, 2025 Assessment & Plan (1) Dizziness: Suspect that these events are presyncopal per the description above due to hypotension. These are less likely to represent a seizure Plan Check orthostatic blood pressure. Obtain MRI of the brain with and without contrast. An EEG would be appropriate. Patient was educated to take her time when she was to stand up, be cautious about micturition syncope and vasovagal events. Was advised to eat small meals. Can obtain an echocardiogram if not done recently Telehealth Consultation Telehealth Information Telehealth Information: I performed this visit using a real-time telehealth connection between my location and the patients location ([facility]). After connecting through interactive tele-video, patient was identified by name and date of and/or wristband check.Patient (or authorized healthcare corporate sales representative) was informed that this was a telemedicine visit and it was being conducted confidentially over secure lines. My office door was closed and no one else was present in the room with me.Patient (or authorized healthcare corporate sales representative) provided consent to proceed with the visit, expressed an understanding of privacy and security of the telemedicine visit, and gave permission to have a hospital corporate sales representative in the room in order to assist with the visit and to conduct portions of the visit, as needed. I informed the patient (or authorized healthcare corporate sales representative) that I reviewed their record and presented the opportunity for them to ask any questions regarding the visit today. The patient agreed to participate. History of Present Illness Reason for Consultation: Episodes of freezing, dizziness Requesting Physician: Cruzito Vallecillo MD Attending Physician: Cruzito Vallecillo MD History of Present Illness Clotilde Pope is a 79-year-old female patient with PMH significant of obesity, coronary artery d isease, CHF, COPD, HTN, HLP, glucoma and generalized anxiety disorder the patient has a recent left ICA CEA and left carotid artery stent on 01/20, history of right CEA in the past, with known, carotid stenosis, currently on aspirin and statin who was brought to the hospital for shortness of breath on 01/31/2025. She was found to have acute hypoxic respiratory failure with pulmonary edema and bilateral pleural effusion was treated with BiPAP and started on diuresis. The patient's blood pressure was noted to be on the lower side in the 90s. The patient was started on diuresis. The patient reported episodes of dizziness that are associated with her freezing for minutes described by her son. He reports that they started happening about a year ago, the patient would be standing up or she would be walking where she will suddenly feel dizzy lightheaded and she would appear to be shaky without convulsions of the limbs but with some stiffening of the back, this lasted for few seconds, she is fully awake and alert she does not lose consciousness, there was no confusion reported, no incontinence. They have been sometimes after large meals, and sometimes whenever she is standing up but they are not limited to after meals or episodes where she is standing up. Allergies Allergy/AdvReac Type Severity Reaction Status Date / Time duloxetine [From Cymbalta] Allergy Unknown Unknown Unverified 01/31/25 08:16 levofloxacin [From Levaquin] Allergy Unknown Unknown Unverified 01/31/25 08:16 mometasone furoate Allergy Unknown Unknown Unverified 01/31/25 08:16 [From Asmanex Twisthaler] Home Medications Medication Instructions Recorded Confirmed Type albuterol sulfate 90 mcg/actuation 2 puff inhalation Q4H PRN Wheezing 01/27/25 01/31/25 History aerosol inhaler atorvastatin 40 mg tablet 40 mg PO QAM 01/27/25 01/31/25 History clopidogrel 75 mg tablet 75 mg PO QAM 01/27/25 01/31/25 History dorzolamide 22.3 mg-timolol 6.8 1 drp OPR BID 01/27/25 01/31/25 History mg/mL eye drops ezetimibe 10 mg tablet 10 mg PO QAM 01/27/25 01/31/25 History lorazepam 0.5 mg tablet 0.25 mg PO BID 01/27/25 01/31/25 History metoprolol succinate 25 mg 25 mg PO QAM 01/27/25 01/31/25 History tablet,extended release 24 hr oxycodone 5 mg tablet 5 mg PO Q8H PRN Pain 01/27/25 01/31/25 History acetaminophen 500 mg tablet 1,000 mg PO TID PRN Pain 01/31/25 01/31/25 History aspirin 81 mg tablet,delayed 81 mg PO DAILY 01/31/25 01/31/25 History release cetirizine 10 mg capsule (Zyrtec) 10 mg PO DAILY PRN Allergy Symptoms 01/31/25 01/31/25 History cholecalciferol (vitamin D3) 25 25 mcg PO DAILY 01/31/25 01/31/25 History mcg (1,000 unit) capsule (Vitamin D3) famotidine 10 mg tablet 10 mg PO BID PRN heart burn 01/31/25 01/31/25 History nicotine 21 mg/24 hr daily 1 patch transdermal DAILY 01/31/25 01/31/25 History transdermal patch Patient History Medical History (Updated 02/01/25 @ 12:23 by Trupti Sage PA-C) Generalized anxiety disorder Tobacco abuse PVD (peripheral vascular disease) PAD (peripheral artery disease) Glaucoma Ocular ischemic syndrome Pre-diabetes CAD (coronary artery disease) Carotid artery stenosis HLD (hyperlipidemia) HTN (hypertension) Surgical History (Updated 01/31/25 @ 10:45 by Francheska Stauffer PA-C) History of carotid endarterectomy History of coronary artery bypass graft x 3 Social History (Updated 01/31/25 @ 10:45 by Francheska Stauffer PA-C) Smoking Status: Current every day smoker Tobacco Type: Cigarettes Cigarettes Per Day: 1/2 pack per day; Second Hand Exposure: No; Do You Dip or Chew Tobacco: No; Tobacco Cessation Education Requested by Patient: No Hx Alcohol Use: No Hx Substance Use: No Preferred Language: [place] Communication Ability: Effective Collection Supervisor Required: No Beliefs That Will Affect Care: None marital status: / Current Living Situation: Alone Other Information That Helps Us Care for You: No Feels Safe at Home: Yes Safety Concerns: Feels Safe At This Time Assistive Devices: Glasses Review of Systems Negative except for the points mentioned in HPI Physical Exam General Constitutional: Appearance normally developed Head and face: normocephalic and atraumatic Eyes: no ptosis, no anisocoria, and no dysconjugate gaze Respiratory: normal effort Cardiovascular: regular rhythm and regular rate Abdomen: non distended Skin: no rashes, lesions, or ulcers noted Psychiatric: normal judgement and insight, normal mood, and normal affect NEUROLOGIC EXAMINATION: Mental Status:alert, oriented to time, place, person, normal recent memory, normal remote memory, normal attention span, normal concentration, normal language and normal fund of knowledge Cranial Nerves: CN 2 - no visual defect on confrontation and pupils round, equal, reactive to light CN 3, 4, 6 - extra-ocular movements intact and no nystagmus CN 5 - facial sensation intact CN 7 - no facial asymmetry CN 8 - intact hearing CN 9, 10 - palate symmetric, normal gag CN 11 - good shoulder shrug CN 12 - tongue midline MOTOR: Strength was at least antigravity throughout, Pronator drift was absent and There were no abnormal movements SENSATION: intact and symmetric to pinprick, light touch, vibration and joint position GAIT: deferred COORDINATION: no ataxia with finger to nose testing and heel to giles testing REFLEXES: cannot assess over telemedicine Results & Data Vital Signs (Past 12 Hours) Vital Signs Temp Pulse Resp BP Pulse Ox O2 Del Method O2 Flow Rate 02/01/25 11:18 36.3 C L 52 L 19 91/44 L 97 Nasal Cannula 02/01/25 11:12 87 18 Nasal Cannula 02/01/25 08:26 110 H 20 97 Nasal Cannula 2 02/01/25 07:31 36.7 C 45 L 18 87/48 L 96 Nasal Cannula 2 Laboratory Results Laboratory Results - last 24 hr 01/31/25 02/01/25 02/01/25 22:20 05:33 15:05 WBC 7.28 RBC 3.26 L Hgb 9.3 L Hct 29.0 L MCV 89.0 MCH 28.5 MCHC 32.1 RDW Std Deviation 48.8 H RDW Coeff of Jennifer 15.2 H Plt Count 318 MPV 9.3 L Immature Gran % (Auto) 0.4 Neut % (Auto) 72.8 Lymph % (Auto) 16.6 Ware % (Auto) 9.8 Eos % (Auto) 0.3 Baso % (Auto) 0.1 Neut # (Auto) 5.30 Lymph # (Auto) 1.21 Ware # (Auto) 0.71 H Eos # (Auto) 0.02 Baso # (Auto) 0.01 Immature Gran # (Auto) 0.03 Sodium 136 D Potassium 3.5 Chloride 103 Carbon Dioxide 26 Anion Gap 7 BUN 14 Creatinine 0.95 Est Cr Clr Drug Dosing 41.0 eGFR 61.71 BUN/Creatinine Ratio 14.7 Glucose 117 H Estimat Average Glucose 123 Hemoglobin A1c 5.9 H Lactate 2.2 H* Calcium 8.2 L Magnesium 1.9 Total Bilirubin 0.4 AST 13 ALT 15 Alkaline Phosphatase 98 Troponin I High Sens 35.3 H 22.4 H D Total Protein 5.7 L Albumin 3.4 Globulin 2.3 L Albumin/Globulin Ratio 1.5 Triglycerides 98 Cholesterol 112 LDL Cholesterol, Calc 44 VLDL Cholesterol, Calc 20 HDL Cholesterol 48 Cholesterol/HDL Ratio 2.3 ROSANA Screen Pending Anti-Proteinase 3 Pending Anti-Myeloperoxidase Pending ANCA Pending SS-A/Ro Antibody Pending SS-B/La Antibody Pending Sm (Anton) Antibody Pending [employer] Antibody Pending Scl-70 Scleroderma Ab Pending Anti-ds DNA (Crithidia) Pending Chromatin Antibody Pending Anti-Centromere Ab Pending Thyroid Antimicrosomal Pending Anti-Cardiolipin IgG Ab Pending Anti-Cardiolipin IgA Ab Pending Anti-Cardiolipin IgM Ab Pending Complement C3 Pending Complement C4 Pending Diagnostic Findings CTA prior to CEA/stent: There are diffuse atherosclerotic calcifications. 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 Stent proximally in the left common carotid artery is widely patent. There is severe focal narrowing of 90% proximal left internal carotid artery due to mixed calcified/noncalcified plaque. There is severe focal narrowing of 90% or greater mid aspect of the right common carotid artery due to calcified plaque. Right vertebral artery is dominant. Vertebral arteries show no significant narrowing or occlusion. Visualized portion of the basilar artery is patent. Medications Administered Home Medications Medication Instructions Recorded Confirmed Last Taken albuterol sulfate 90 mcg/actuation 2 puff inhalation Q4H PRN Wheezing 01/27/25 01/31/25 Unknown aerosol inhaler atorvastatin 40 mg tablet 40 mg PO QAM 01/27/25 01/31/25 Unknown clopidogrel 75 mg tablet 75 mg PO QAM 01/27/25 01/31/25 Unknown dorzolamide 22.3 mg-timolol 6.8 1 drp OPR BID 01/27/25 01/31/25 Unknown mg/mL eye drops ezetimibe 10 mg tablet 10 mg PO QAM 01/27/25 01/31/25 Unknown lorazepam 0.5 mg tablet 0.25 mg PO BID 01/27/25 01/31/25 Unknown metoprolol succinate 25 mg 25 mg PO QAM 01/27/25 01/31/25 Unknown tablet,extended release 24 hr oxycodone 5 mg tablet 5 mg PO Q8H PRN Pain 01/27/25 01/31/25 Unknown acetaminophen 500 mg tablet 1,000 mg PO TID PRN Pain 01/31/25 01/31/25 Unknown aspirin 81 mg tablet,delayed 81 mg PO DAILY 01/31/25 01/31/25 Unknown release cetirizine 10 mg capsule (Zyrtec) 10 mg PO DAILY PRN Allergy Symptoms 01/31/25 01/31/25 Unknown cholecalciferol (vitamin D3) 25 25 mcg PO DAILY 01/31/25 01/31/25 Unknown mcg (1,000 unit) capsule (Vitamin D3) famotidine 10 mg tablet 10 mg PO BID PRN heart burn 01/31/25 01/31/25 Unknown nicotine 21 mg/24 hr daily 1 patch transdermal DAILY 01/31/25 01/31/25 Unknown transdermal patch Active Medications Generic Name Dose Route Start Last Admin Trade Name Freq PRN Reason Stop Dose Admin Acetaminophen 650 mg 01/31/25 11:55 02/01/25 15:28 Acetaminophen 325 Mg Tab PO 03/02/25 11:54 650 mg Q4H PRN Administration Pain or Fever Albuterol 3 ml 01/31/25 11:55 02/01/25 10:59 Albut/Ipratrop 3mg/0.5mg Neb 3 Ml Vial NEB 03/02/25 11:54 3 ml QIDR PRN Administration Shortness Of Breath Or Wheezing Protocol Albuterol 3 ml 02/01/25 13:00 02/01/25 13:59 Albut/Ipratrop 3mg/0.5mg Neb 3 Ml Vial NEB 03/03/25 12:59 Not Given TIDR LATASHA Protocol Aspirin 81 mg 01/31/25 11:55 02/01/25 09:46 Aspirin 81 Mg Ectab PO 03/02/25 11:54 81 mg DAILY LATASHA Administration Atorvastatin Calcium 40 mg 01/31/25 11:55 02/01/25 09:46 Atorvastatin 40 Mg Tab PO 03/02/25 11:54 40 mg QAM LATASHA Administration Clopidogrel Bisulfate 75 mg 01/31/25 11:55 02/01/25 09:46 Clopidogrel Bisulfate 75 Mg Tab PO 03/02/25 11:54 75 mg QAM LATASHA Administration Dorzolamide/Timolol 1 drops 01/31/25 21:00 02/01/25 09:47 Dorzolamide/Timolol 22.3/6.8mg/Ml 10 Ml Btl OPR 03/02/25 20:59 1 drops BID LATASHA Administration Ezetimibe 10 mg 02/01/25 09:00 02/01/25 09:46 Ezetimibe 10 Mg Tab PO 03/03/25 08:59 10 mg QAM LATASHA Administration Enoxaparin Sodium 40 mg 01/31/25 21:00 01/31/25 20:09 Enoxaparin Inj 40 Mg/0.4 Ml Syr SQ 03/02/25 20:59 40 mg HS LATASHA Administration Famotidine 20 mg 01/31/25 11:55 02/01/25 09:43 Famotidine 20 Mg Tab PO 03/02/25 11:54 20 mg DAILY PRN Administration Heartburn Lorazepam 0.25 mg 01/31/25 13:12 02/01/25 15:56 Lorazepam 0.5 Mg Tab PO 03/02/25 17:59 0.25 mg Q6 PRN Administration Anxiety Magnesium Oxide 400 mg 02/01/25 09:00 02/01/25 09:44 Magnesium Oxide 400 Mg Tab PO 03/03/25 08:59 400 mg QAM LATASHA Administration Melatonin 6 mg 01/31/25 21:00 01/31/25 20:08 Melatonin 3 Mg Tab PO 03/02/25 20:59 6 mg HS PRN Administration Sleep Miscellaneous 1 each 02/01/25 08:59 02/01/25 10:08 Remove Nicoderm Patch N/A 03/03/25 08:58 1 each DAILY@0859 [facility] Administration Nicotine 1 patch 01/31/25 10:15 02/01/25 09:47 Nicotine 21 Mg/24 Hr Tdsy TD 03/02/25 10:14 1 patch QAM LATASHA Administration Oxycodone HCl 5 mg 01/31/25 11:55 01/31/25 23:02 Oxycodone Hcl Ir 5 Mg Tab (Immediate Release) PO 02/14/25 11:54 5 mg Q8H PRN Administration Severe Pain (Scale 7, 8, 9,10) Polyethylene Glycol 17 gm 01/31/25 11:55 02/01/25 09:55 Polyethylene (Miralax) 17 Gm Pack PO 03/02/25 11:54 17 gm DAILY PRN Administration Constipation Potassium Chloride 20 meq 02/01/25 09:00 02/01/25 09:55 Potassium Chloride Crtab 20 Meq Tabcr PO 03/03/25 08:59 20 meq BID LATASHA Administration Vitamin D 25 mcg 02/01/25 09:00 02/01/25 09:46 Cholecalciferol 25 Mcg (1000 Units) Tab PO 03/03/25 08:59 25 mcg DAILY LATASHA Administration
--- NOTE | 2025-02-01 17:08 | Psychiatric Consultation ---
Date of Consultation February 01, 2025 Impression / Recommendations Impression Diagnostically consistent with unspecified anxiety likely a combination of generalized anxiety with panic attacks, complicated bereavement and adjustment disorder with anxious mood in setting of recent medical challenges. Generally SSRIs and SNRIs are felt to be safe options even for patients with angle-closure glaucoma ( Kristian CAMILO, Ashly V, Lise C, Toby OM, Hiwot S, Yessi O. Psychopharmacological Treatment, Intraocular Pressure and the Risk of Glaucoma: A Review of Literature. J Clin Med. 2020Apr 18;10(49):2947. doi: 10.3390/[id number]. PMID: 44259197; PMCID: [id number].) Typically lorazepam should be used only for short-term relief of anxiety and panic symptoms so agree with outpatient provider's ongoing efforts to taper this. Given her increased anxiety symptoms would slow down taper for next 2-3 months by continuing at current dose or consider transition to dose equivalent Klonopin as sometimes this offers smoother on/off effects for anxiety due to longer duration of anxiety which can be beneficial when tapering. Overall, I spent a total of 35 minutes with this case including review of chart records, review of labwork, review of EKG QTc, discussion of the patient with the Nurse and with the hospitalist provider, discussion with the psychiatric liason during clinical rounds and documentation in the electronic health record. (1) Anxiety: (2) COPD exacerbation: (3) Acute on chronic heart failure with preserved ejection fraction (HFpEF): Plan -consider escitalopram 5mg daily -consider transition from lorazepam to dose equivalent clonazepam (start with 1mg daily and then try to reduce to 0.5mg daily and then if tolerated drop to 0.25mg after 2 months then to 0.125mg after 1-2 months then discontinue). Of note: benzodiazepines can worsen and trigger angle closure glaucoma and further reason to attempt ongoing taper to discontinuation as tolerated -psych liason to explore options for possible outpatient psychotherapy Psych History Identifying Data 79-year-old female who has a significant past medical history of CAD status post CABG x 3 in 2014, carotid artery stenosis status post right carotid endarterectomy in 2016 and recent left carotid endarterectomy with left carotid artery stent placement on 01/20/2025, PAD/PVD, history of hypertension, hyperlipidemia, COPD, ocular ischemia, neovascular glaucoma and generalized anxiety disorder who presents to ED secondary to acute onset shortness of breath prior to arrival. Psychiatry consulted for anxiety. History of Present Illness Clotilde was admitted for worsened shortness of breath and increased anxiety with tearfulness. Attempts to meet with her today were unsuccessful as she was with a variety of different providers throughout the day and participating with teleconsult with neurology when I attempted this afternoon. Therefore recent history per psych liason assessment today on 02/01/2025: "Rounded on patient for initial consult interview. Patient's son, Stephane, present per patient's request. Patient has suffered from anxiety much of her life. Approximately 10-15 years ago she was trialed on Valium, then Xanax, and ended up responding well to Ativan 0.5mg BID. Patient then moved to [place] in the past few years and her new PCP began weaning her off of the Ativan. Her current home dose is 0.25mg BID. Patient has had a significant increase in anxiety since then. She has trialed Wellbutrin and Zoloft in the past but experienced severe nausea and did not feel that either were helpful. Patient was prescribed Remeron to take but then realized it can cause angle closure glaucoma which she currently has. 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 Patient is open to trail other medications. She is concerned that she "can not keep doing this" unless it is managed. She denies SI but feels hopeless that her anxiety will not improve. Patient reports that she has always been labile in her mood, tearful, and experienced frequent sadness. Patient became tearful during the visit. She has a multitude of medical issues she is dealing with currently and is still coping from the loss of her in October. Patient states "I don't cope well". She is agreeable to a psychiatrist and would appreciate information regarding a therapy referral. She has no current psychiatric providers. Patient is aware that the psychiatrist will be rounding to see her later today." Allergies Allergy/AdvReac Type Severity Reaction Status Date / Time duloxetine [From Cymbalta] Allergy Unknown Unknown Unverified 01/31/25 08:16 levofloxacin [From Levaquin] Allergy Unknown Unknown Unverified 01/31/25 08:16 mometasone furoate Allergy Unknown Unknown Unverified 01/31/25 08:16 [facility] Home Medications Medication Instructions Recorded Confirmed Type albuterol sulfate 90 mcg/actuation 2 puff inhalation Q4H PRN Wheezing 01/27/25 01/31/25 History aerosol inhaler atorvastatin 40 mg tablet 40 mg PO QAM 01/27/25 01/31/25 History clopidogrel 75 mg tablet 75 mg PO QAM 01/27/25 01/31/25 History dorzolamide 22.3 mg-timolol 6.8 1 drp OPR BID 01/27/25 01/31/25 History mg/mL eye drops ezetimibe 10 mg tablet 10 mg PO QAM 01/27/25 01/31/25 History lorazepam 0.5 mg tablet 0.25 mg PO BID 01/27/25 01/31/25 History metoprolol succinate 25 mg 25 mg PO QAM 01/27/25 01/31/25 History tablet,extended release 24 hr oxycodone 5 mg tablet 5 mg PO Q8H PRN Pain 01/27/25 01/31/25 History acetaminophen 500 mg tablet 1,000 mg PO TID PRN Pain 01/31/25 01/31/25 History aspirin 81 mg tablet,delayed 81 mg PO DAILY 01/31/25 01/31/25 History release cetirizine 10 mg capsule (Zyrtec) 10 mg PO DAILY PRN Allergy Symptoms 01/31/25 01/31/25 History cholecalciferol (vitamin D3) 25 25 mcg PO DAILY 01/31/25 01/31/25 History mcg (1,000 unit) capsule (Vitamin D3) famotidine 10 mg tablet 10 mg PO BID PRN heart burn 01/31/25 01/31/25 History nicotine 21 mg/24 hr daily 1 patch transdermal DAILY 01/31/25 01/31/25 History transdermal patch Patient History Medical History (Updated 02/01/25 @ 20:22 by Zahra Cheng MD) Generalized anxiety disorder Tobacco abuse PVD (peripheral vascular disease) PAD (peripheral artery disease) Glaucoma Ocular ischemic syndrome Pre-diabetes CAD (coronary artery disease) Carotid artery stenosis HLD (hyperlipidemia) HTN (hypertension) Surgical History (Updated 01/31/25 @ 10:45 by Francheska Stauffer PA-C) History of carotid endarterectomy History of coronary artery bypass graft x 3 Social History (Updated 01/31/25 @ 10:45 by Francheska Stauffer PA-C) Smoking Status: Current every day smoker Tobacco Type: Cigarettes Cigarettes Per Day: 1/2 pack per day; Second Hand Exposure: No; Do You Dip or Chew Tobacco: No; Tobacco Cessation Education Requested by Patient: No Hx Alcohol Use: No Hx Substance Use: No Preferred Language: Turkish 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: No Beliefs That Will Affect Care: None marital status: / Current Living Situation: Alone Other Information That Helps Us Care for You: No Feels Safe at Home: Yes Safety Concerns: Feels Safe At This Time Assistive Devices: Glasses Physical Exam Vital Signs (Past 24 Hours): Last Vital Signs Temp 36.3 C L 02/01/25 11:18 Pulse 52 L 02/01/25 11:18 Resp 19 02/01/25 11:18 BP 91/44 L 02/01/25 11:18 Pulse Ox 97 02/01/25 11:18 O2 Del Method Nasal Cannula 02/01/25 11:18 O2 Flow Rate 2 02/01/25 08:26 FiO2 50 01/31/25 07:10 Results & Data (PSY) Medications Administered Acetaminophen (Acetaminophen 325 Mg Tab) 650 mg PO Q4H PRN PRN Reason: Pain or Fever Stop: 03/02/25 11:54 Last Admin: 02/01/25 15:28 Dose: 650 mg Documented By: Admin: 02/01/25 10:08 Dose: 650 mg Documented By: Admin: 01/31/25 21:01 Dose: 650 mg Documented By: Admin: 01/31/25 14:53 Dose: 650 mg Documented By: ES Albuterol (Albut/Ipratrop 3mg/0.5mg Neb 3 Ml Vial) 3 ml NEB QIDR PRN; Protocol PRN Reason: Shortness Of Breath Or Wheezing Stop: 03/02/25 11:54 Last Admin: 02/01/25 10:59 Dose: 3 ml Documented By: Admin: 02/01/25 08:26 Dose: 3 ml Documented By: EM Albuterol (Albut/Ipratrop 3mg/0.5mg Neb 3 Ml Vial) 3 ml NEB TIDR LATASHA; Protocol Stop: 03/03/25 12:59 Last Admin: 02/01/25 13:59 Dose: Not Given Documented By: EM Aspirin (Aspirin 81 Mg Ectab) 81 mg PO DAILY [facility] Stop: 03/02/25 11:54 Last Admin: 02/01/25 09:46 Dose: 81 mg Documented By: Admin: 01/31/25 12:55 Dose: 81 mg Documented By: ES Atorvastatin Calcium (Atorvastatin 40 Mg Tab) 40 mg PO [facility] Stop: 03/02/25 11:54 Last Admin: 02/01/25 09:46 Dose: 40 mg Documented By: Admin: 01/31/25 12:55 Dose: 40 mg Documented By: ES Clopidogrel Bisulfate (Clopidogrel Bisulfate 75 Mg Tab) 75 mg PO [facility] Stop: 03/02/25 11:54 Last Admin: 02/01/25 09:46 Dose: 75 mg Documented By: Admin: 01/31/25 12:55 Dose: 75 mg Documented By: ES Dorzolamide/Timolol (Dorzolamide/Timolol 22.3/6.8mg/Ml 10 Ml Btl) 1 drops OPR BID [facility] Stop: 03/02/25 20:59 Last Admin: 02/01/25 09:47 Dose: 1 drops Documented By: Admin: 01/31/25 20:10 Dose: 1 drops Documented By: ASM Ezetimibe (E[facility]imibe 10 Mg Tab) [facility] [place] Stop: 03/03/25 08:59 Last Admin: 02/01/25 09:46 Dose: 10 mg Documented By: SS Enoxaparin Sodium (Enoxaparin Inj 40 Mg/0.4 Ml Syr) 40 mg SQ HS [facility] Stop: 03/02/25 20:59 Last Admin: 01/31/25 20:09 Dose: 40 mg Documented By: ASM Famotidine (Famotidine 20 Mg Tab) 20 mg PO DAILY PRN PRN Reason: Heartburn Stop: 03/02/25 11:54 Last Admin: 02/01/25 09:43 Dose: 20 mg Documented By: SS Lorazepam (Lorazepam 0.5 Mg Tab) 0.25 mg PO Q6 PRN PRN Reason: Anxiety Stop: 03/02/25 17:59 Last Admin: 02/01/25 15:56 Dose: 0.25 mg Documented By: Admin: 02/01/25 09:54 Dose: 0.25 mg Documented By: Admin: 01/31/25 20:09 Dose: 0.25 mg Documented By: Admin: 01/31/25 13:23 Dose: 0.25 mg Documented By: ES Magnesium Oxide (Magnesium Oxide 400 Mg Tab) 400 mg PO QAM [facility] Stop: 03/03/25 08:59 Last Admin: 02/01/25 09:44 Dose: 400 mg Documented By: SS Melatonin (Melatonin 3 Mg Tab) 6 mg PO HS PRN PRN Reason: Sleep Stop: 03/02/25 20:59 Last Admin: 01/31/25 20:08 Dose: 6 mg Documented By: ARTIS Miscellaneous (Remove Nicoderm Patch) 1 each N/A DAILY@0859 [facility] Stop: 03/03/25 08:58 Last Admin: 02/01/25 10:08 Dose: 1 each Documented By: AMANDA Nicotine (Nicotine 21 Mg/24 Hr Tdsy) [facility] [place] Stop: 03/02/25 10:14 Last Admin: 02/01/25 09:47 Dose: 1 patch Documented By: Admin: 01/31/25 12:54 Dose: 1 patch Documented By: RUPAL Oxycodone HCl (Oxycodone Hcl Ir 5 Mg Tab (Immediate Release)) 5 mg PO Q8H PRN PRN Reason: Severe Pain (Scale 7, 8, 9,10) Stop: 02/14/25 11:54 Last Admin: 01/31/25 23:02 Dose: 5 mg Documented By: Admin: 01/31/25 14:52 Dose: 5 mg Documented By: RUPAL Polyethylene Glycol (Polyethylene (Miralax) 17 Gm Pack) 17 gm PO DAILY PRN PRN Reason: Constipation Stop: 03/02/25 11:54 Last Admin: 02/01/25 09:55 Dose: 17 gm Documented By: SS Potassium Chloride (Potassium Chloride Crtab 20 Meq Tabcr) 20 meq PO BID [facility] Stop: 03/03/25 08:59 Last Admin: 02/01/25 09:55 Dose: 20 meq Documented By: SS Vitamin D (Cholecalciferol 25 Mcg (1000 Units) Tab) 25 mcg PO DAILY [facility] Stop: 03/03/25 08:59 Last Admin: 02/01/25 09:46 Dose: 25 mcg Documented By: SS Coding Level of Care Code 51950 IN/OBS CONSULT LVL 2,35M Diagnoses Anxiety F41.9 COPD exacerbation J44.1 Acute on chronic heart failure with preserved ejection fraction (HFpEF) I50.33
[2025-02-01] MEDS: LORazepam 2 MG/1 ML VIAL IV ONE (20:04)
[2025-02-01] MEDS: GADOBUTROL 65ML VIAL IV ONE (20:23)
--- NOTE | 2025-02-01 23:47 | Magnetic Resonance Report ---
Exam(s): MRI HEAD W/WO Contrast IV Amt: 6.5mL Gadavist given existing IV EXAM: MR Head Without and With Intravenous Contrast CLINICAL HISTORY: Reason for exam: dizziness, rec per neuro. TECHNIQUE: Magnetic resonance images of the head/brain without and with intravenous contrast in multiple planes. CONTRAST: Patient received 6.5mL Gadavist given existing IV of IV contrast COMPARISON: Prior head CT from February 01, 2012 5. FINDINGS: Brain: Advanced nonspecific white matter changes. No mass. No hemorrhage. No acute infarct. The flow voids at base of the brain are intact. No evidence of abnormal enhancement. The dural venous sinuses are patent. Ventricles: Unremarkable. No ventriculomegaly. Bones/joints: Unremarkable. No acute fracture. Sinuses: Unremarkable as visualized. No acute sinusitis. Mastoid air cells: Unremarkable as visualized. No mastoid effusion. Orbits: Unremarkable as visualized. IMPRESSION: No evidence of acute intracranial pathology. Electronically signed by: Karen Candelaria MD 02/01/25 23:46 PM
[2025-02-02] MEDS: NICOTINE 21 MG/24 HR TDSY TD SCH (03:26)
[2025-02-02 07:46] LABS: Basophils # (auto) 0.05 K/uL (0.00-0.20); Basophils % (auto) 0.5 %; Eosinophils # (auto) 0.14 K/uL (0.00-0.50); Eosinophils % (auto) 1.4 %; Hematocrit (blood only) 30.3 % (37.0-47.0); Hemoglobin 9.9 g/dl (12.0-16.0); Immature Granulocytes # (auto) 0.04 K/uL (0.01-0.20); Immature Granulocytes % (auto) 0.4 %; Lymphocytes # (auto) 1.99 K/uL (1.20-3.40); Lymphocytes % (auto) 20.3 %; Mean Corpuscular Hemoglobin 29.6 pg (25.0-34.0); Mean Corpuscular Hgb Conc 32.7 g/dL (32.0-36.0); Mean Corpuscular Volume 90.4 fL (80.0-100.0); Mean Platelet Volume 9.2 fL (9.4-12.4); Monocytes # (auto) 0.73 K/uL (0.11-0.59); Monocytes % (auto) 7.5 %; Neutrophils # (auto) 6.83 K/uL (1.40-6.50); Neutrophils % (auto) 69.9 %; Platelet Count 328 K/uL (130-400); RDW Coefficient of Variation 15.5 % (11.5-14.5); Red Blood Count 3.35 M/uL (4.20-5.40); White Blood Count 9.78 K/ul (4.8-10.8)
[2025-02-02 08:22] LABS: Calcium 8.7 mg/dl (8.6-10.3); Magnesium 2.3 mg/dl (1.7-2.4); Potassium 4.7 mmol/L (3.5-5.1)
[2025-02-02 08:32] LABS: BUN Creatinine Ratio 13.8 (10-20); Creatinine Clr Calc Pharmacy 44.4 ml/min
[2025-02-02] MEDS: ESCITALOPRAM OXALATE 10 MG TAB PO SCH (09:20)
[2025-02-02] MEDS: MIDODRINE HCL 2.5 MG TAB PO SCH (11:18)
--- NOTE | 2025-02-02 12:04 | Psychiatric Progress Note ---
Date of Service February 02, 2025 Impression / Recommendations Impression Diagnostically consistent with unspecified anxiety likely a combination of generalized anxiety with panic attacks, complicated bereavement and adjustment disorder with anxious mood in setting of recent medical challenges. Generally SSRIs and SNRIs are felt to be safe options even for patients with angle-closure glaucoma ( Kristian AM, Ashly V, Lise C, Toby OM, Hiwot S, Yessi O. Psychopharmacological Treatment, Intraocular Pressure and the Risk of Glaucoma: A Review of Literature. J Clin Med. 2020Apr 18;10(74):2947. doi: 10.3390/[id number]. PMID: [id number]; PMCID: [id number].) Typically lorazepam sh ould be used only for short-term relief of anxiety and panic symptoms so agree with outpatient provider's ongoing efforts to taper this. Given her increased anxiety symptoms would slow down taper for next 2-3 months by continuing at current dose or consider transition to dose equivalent Klonopin as sometimes this offers smoother on/off effects for anxiety due to longer duration of anxiety which can be beneficial when tapering. 02/02/2025: Hospitalist team was able to speak with her care professional, Dr. Harrison, who reported he would feel most comfortable with Buspar or Wellbutrin rather than SSRI. Wellbutrin often worsens anxiety so would not recommend this and apparently this was tried in the past and caused GI symptoms for her. Buspar is reasonable and although it tends to work best when also on a concurrent SSRI it can be effective for some individuals as a monotherapy option. Agree with patient and son that any anxiety medications have to considered with risk/benefit of potentially worsening her glaucoma and all the more reason to try to get her set up with outpatient psychotherapy for anxiety management. Overall, I spent a total of 50 minutes with this case including review of chart records, review of labwork, direct evaluation of the patient at bedside, counseling the patient, discussion of the patient with the Nurse and with the hospitalist provider, discussion with the psychiatric liason during clinical rounds, review of collateral historian information from the family and documentation in the electronic health record. (1) Anxiety: (2) COPD exacerbation: (3) Acute on chronic heart failure with preserved ejection fraction (HFpEF): Plan -could use Buspar 2.5mg BID and increase to 5mg BID if tolerated after 1-2 weeks. Eventually goal dosing for her age would be 10mg BID or 10mg TID if tolerated. -consider transition from lorazepam to dose equivalent clonazepam (start with 1mg daily and then try to reduce to 0.5mg daily and then if tolerated drop to 0.25mg after 2 months then to 0.125mg after 1-2 months then discontinue). Of note: benzodiazepines can worsen and trigger angle closure glaucoma and further reason to attempt ongoing taper to discontinuation as tolerated -psych liason to explore options for possible outpatient psychotherapy Interval History Identifying Information 79-year-old female who has a significant past medical history of CAD status post CABG x 3 in 2014, carotid artery stenosis status post right carotid endarterectomy in 2015 and recent left carotid endarterectomy with left carotid artery stent placement on 01/20/2025, PAD/PVD, history of hypertension, hyperlipidemia, COPD, ocular ischemia, neovascular glaucoma and generalized anxiety disorder who presents to ED secondary to acute onset shortness of breath prior to arrival. Psychiatry consulted for anxiety. Chief Complaint "That was working". Subjective Subjective Patient was seen & assessed and interval progress reviewed. met with Clotilde and her son at bedside alongside psych liason RNs. She reports worsened anxiety with taper of lorazepam. Son expressed concerns about any SSRI trial without ophthalmology input given severity of her current glaucoma and high risk of further blindness. Discussed risk/benefit profile for anxiety medications and that she'd ideally like to focus more on therapy. No SI. Physical Exam Vital Signs (Past 24 Hours) Last Vital Signs Temp 36.6 C 02/02/25 11:15 Pulse 70 02/02/25 11:15 Resp 19 02/02/25 11:15 BP 90/51 L 02/02/25 11:15 Pulse Ox 96 02/02/25 11:15 O2 Del Method Room Air 02/02/25 11:15 O2 Flow Rate 3 02/02/25 08:45 FiO2 50 01/31/25 07:10 Results & Data ([facility]) Laboratory Results Laboratory Results - last 24 hr 02/01/25 02/01/25 02/02/25 15:05 17:01 07:24 WBC 9.78 RBC 3.35 L Hgb 9.9 L Hct 30.3 L MCV 90.4 MCH 29.6 MCHC 32.7 RDW Std Deviation 50.0 H RDW Coeff of Jennifer 15.5 H Plt Count 328 MPV 9.2 L Immature Gran % (Auto) 0.4 Neut % (Auto) 69.9 Lymph % (Auto) 20.3 Gooding % (Auto) 7.5 Eos % (Auto) 1.4 Baso % (Auto) 0.5 Neut # (Auto) 6.83 H Lymph # (Auto) 1.99 Gooding # (Auto) 0.73 H Eos # (Auto) 0.14 Baso # (Auto) 0.05 Immature Gran # (Auto) 0.04 Sodium 140 Potassium 4.7 D Chloride 107 Carbon Dioxide 30 Anion Gap 3 BUN 12 Creatinine 0.87 Est Cr Clr Drug Dosing 44.4 eGFR 68.58 BUN/Creatinine Ratio 13.8 Glucose 93 Lactate 2.2 H* 1.6 Calcium 8.7 Magnesium 2.3 Troponin I High Sens 22.4 H D TSH 4.423 Cortisol AM Sample 8.86 Current Inpatient Medications Current Inpatient Medications: Current Inpatient Medications Acetaminophen (Acetaminophen 325 Mg Tab) 650 mg PO Q4H PRN PRN Reason: Pain or Fever Stop: 03/02/25 11:54 Last Admin: 02/01/25 15:28 Dose: 650 mg Albuterol (Albut/Ipratrop 3mg/0.5mg Neb 3 Ml Vial) 3 ml NEB QIDR PRN; Protocol PRN Reason: Shortness Of Breath Or Wheezing Stop: 03/02/25 11:54 Last Admin: 02/01/25 22:12 Dose: 3 ml Albuterol (Albut/Ipratrop 3mg/0.5mg Neb 3 Ml Vial) 3 ml NEB TIDR LATASHA; Protocol Stop: 03/03/25 12:59 Last Admin: 02/02/25 07:42 Dose: 3 ml Aspirin (Aspirin 81 Mg Ectab) 81 mg PO DAILY [facility] Stop: 03/02/25 11:54 Last Admin: 02/02/25 09:21 Dose: 81 mg Atorvastatin Calcium (Atorvastatin 40 Mg Tab) [facility] [place] Stop: 03/02/25 11:54 Last Admin: 02/02/25 09:21 Dose: 40 mg Clopidogrel Bisulfate (Clopidogrel Bisulfate 75 Mg Tab) 75 [facility] [place] Stop: 03/02/25 11:54 Last Admin: 02/02/25 09:21 Dose: 75 mg Dorzolamide/Timolol (Dorzolamide/Timolol 22.3/6.8mg/Ml 10 Ml Btl) 1 drops OPR BID [facility] Stop: 03/02/25 20:59 Last Admin: 02/02/25 09:20 Dose: 1 drops Ezetimibe (Ezetimibe 10 Mg Tab) 10 mg PO QAM [facility] Stop: 03/03/25 08:59 Last Admin: 02/02/25 09:21 Dose: 10 mg Enoxaparin Sodium (Enoxaparin Inj 40 Mg/0.4 Ml Syr) 40 mg SQ HS [facility] Stop: 03/02/25 20:59 Last Admin: 02/01/25 21:53 Dose: Not Given Famotidine (Famotidine 20 Mg Tab) 20 mg PO DAILY PRN PRN Reason: Heartburn Stop: 03/02/25 11:54 Last Admin: 02/02/25 09:19 Dose: 20 mg Lorazepam (Lorazepam 0.5 Mg Tab) 0.25 mg PO Q6 PRN PRN Reason: Anxiety Stop: 03/02/25 17:59 Last Admin: 02/02/25 09:56 Dose: 0.25 mg Magnesium Oxide (Magnesium Oxide 400 Mg Tab) 400 mg PO QAM [facility] Stop: 03/03/25 08:59 Last Admin: 02/02/25 09:20 Dose: 400 mg Melatonin (Melatonin 3 Mg Tab) 6 mg PO HS PRN PRN Reason: Sleep Stop: 03/02/25 20:59 Last Admin: 01/31/25 20:08 Dose: 6 mg Midodrine (Midodrine Hcl 2.5 Mg Tab) 2.5 mg PO BID@0800,1400 [facility] Stop: 03/04/25 10:49 Last Admin: 02/02/25 11:18 Dose: 2.5 mg Miscellaneous (Remove Nicoderm Patch) 1 each N/A DAILY@0859 [facility] Stop: 03/03/25 08:58 Last Admin: 02/02/25 09:19 Dose: Not Given Nicotine (Nicotine 21 Mg/24 Hr Tdsy) 1 patch TD DAILY [facility] Stop: 03/03/25 23:14 Last Admin: 02/02/25 10:12 Dose: Not Given Ondansetron HCl (Ondansetron Inj 2 Mg/Ml 2 Ml Vial) 4 mg IV Q6H PRN PRN Reason: Nausea Stop: 03/02/25 11:54 Oxycodone HCl (Oxycodone Hcl Ir 5 Mg Tab (Immediate Release)) 5 mg PO Q8H PRN PRN Reason: Severe Pain (Scale 7, 8, 9,10) Stop: 02/14/25 11:54 Last Admin: 01/31/25 23:02 Dose: 5 mg Polyethylene Glycol (Polyethylene (Miralax) 17 Gm Pack) 17 gm PO DAILY PRN PRN Reason: Constipation Stop: 03/02/25 11:54 Last Admin: 02/01/25 09:55 Dose: 17 gm Potassium Chloride (Potassium Chloride Crtab 20 Meq Tabcr) 20 meq PO BID [facility] Stop: 03/03/25 08:59 Last Admin: 02/02/25 09:19 Dose: 20 meq Prednisone (Prednisone 20 Mg Tab) 40 mg PO DAILY [facility] Stop: 02/08/25 08:59 Vitamin D (Cholecalciferol 25 Mcg (1000 Units) Tab) 25 mcg PO DAILY [facility] Stop: 03/03/25 08:59 Last Admin: 02/02/25 09:21 Dose: 25 mcg
--- NOTE | 2025-02-02 12:15 | Hospitalist Progress Note ---
<Statement entered by Suraj Jeronimo DO - 02/02/25 15:09> I have seen and examined the patient and have discussed the case with the advance practice provider. I have reviewed the advanced practitioner's documentation, and I agree with, and take responsibility for that plan of care. Patient with significant orthostasis now that she is euvolemic. This is most likely the cause of the patient's preadmission symptoms of dizziness, lightheadedness and presyncopal symptoms. EEG performed this morning, report pending Agree with trial of midodrine Reviewed neurology and cardiology recommendations Discussed plan of care as outlined below I spent a total of 16 minutes coordinating, documenting, and providing care for this patient excluding time spent by another provider/QHP. Date of Service February 02, 2025 Assessment & Plan (1) Acute hypoxic respiratory failure: (2) Pulmonary edema: (3) Bilateral pleural effusion: (4) Acute on chronic heart failure with preserved ejection fraction (HFpEF): (5) CAD (coronary artery disease): (6) Generalized anxiety disorder: Plan This is a 79-year-old female who has a significant past medical history of CAD status post CABG x 3 in 2014, carotid artery stenosis status post right carotid endarterectomy in 2016 and recent left carotid endarterectomy with left carotid artery stent placement on 01/20/2025, PAD/PVD, history of hypertension, hyperlipidemia, COPD, ocular ischemia, neovascular glaucoma and generalized anxiety disorder who presents to ED secondary to acute onset shortness of breath prior to arrival. #Acute hypoxic respiratory failure #Acute Pulmonary Edema #Bilateral pleural effusion, moderate R, small left #Acute on chronic heart failure with preserved EF #Elevated troponin admit to PCU pt weaned off bipap received 40mg IV lasix in ED, and 20mg in evening on 02/01 strict I and O, daily weights Echo: LVEF 55%, mild MR, grade 2 diastolic dysfunction, subtle small sized anteroseptal wall motion abnormality Cardiology on board Pt with soft blood pressures a.m of 02/01 morning, but MAP is adequate suspect elevated trop in setting of demand ischemia due to chf/hypoxia, remained flat will hold further doses of lasix for right now, -1230ml thus far replaced potassium and magnesium to keep > 4.0 and 2.0 respectively and will now stop supplementation Vasculitis/autoimmune work up pending CXR is improved In afternoon on 02/01 pt remained hypotensive and had a mild lactic acidosis, she received gentle IVF x 500ml, it is felt that she likely received too much lasix for her BP to handle, so lasix now stopped as shes euvolemic I have reached out to pts primary furniture repair technician to discuss her current disease state and possibility of adding midodrine Dr. Harrison was on board with midodrine, but recommends starting at lowest dose possible for her Discussed with Trupti Sage of Cardiology who recommends midodrine 2.5mg bid and if tolerates increase to TID #COPD with acute exac #Tobacco abuse pt with diffuse wheezing this morning, now that pulm edema has improved it is appreciated she also has an underlying COPD exac which is likely resulting in the persistent hypoxia Discussed with Dr. Harrison regarding a short course of oral prednisone and he felt this was appropriate and would not interfere with her specific eye pathology Will do prednisone 40mg daily x 5 days Pt would benefit from a Laba/Lama (Anoro) but would need to be discussed with Beef Splitter Dr. Harrison first She is doing well with nebulizers here and pt would benefit from discharge with nebulizer supplies/treatment continue nicotine patch, pt down from 2ppd to 5-10 cigs encourage cessation #CAD hx of CABG x 3 on asa, plavix, statin and zetia pt recently on metoprolol, but was instructed by vascular to stop this due to lower blood pressure Discontinue metoprolol for now #Carotid artery Disease s/p L CEA and L carotid artery stent 01/[address] Rees, hx of R CEA in past #PAD/PVD follows [facility] Vascular Dr. Rees incision healing well, continue asa, plavix, statin #Ocular ischemia syndrome #Glaucoma follows Dr. Harrison, continue eye gtts, gets inj as outpt last seen in clinic 01/11, OD and OS 20/160 with evidence of progressive worsening per notes guarded visual prognosis Spoke to Dr. Harrison via phone today and appreciate his assistance as he reiterates her very rare eye condition #Generalized anxiety disorder suffered from anxiety all of life, but recently passed in October and recent hospitalizations/surgery Son reports was on lorazepam 1mg BID for years, PCP weaning down and on 0.25mg BID Pt feels this really isn't helping and has trialed 3 prior SSRIS w/o benefit/in tolerance appreciate psychs assistance, reached out to Dr. Harrison again given risks of these meds, he recommends buspar as safest option Discussed with Psych who recommends buspar 2.5mg bid and increase to TID if tolerating well in 1-2 weeks - will discuss with son/pt #dizziness, ?drop attack son reports pt with episodes of, "dizziness," described as losing neuromuscular tone starting in her legs to the point she just falls requesting neuro consult, last had on 01/27 when presented to ED Neuro saw pt, feels its likely bp related, hence the midodrine MRI negative #Anemia: recent outpt w/u revealed normal iron stores, hgb 9.9, pt denies any bleeding episodes, melena, continue to monitor DVT ppx: SQ Lovenox DNR/DNI PCP: Dr. Goetz Dispo: continue tele monitoring Pt was seen and examined in collaboration with Dr. Jeronimo, please see addendum I spent a total of 55 minutes coordinating, documenting and providing care for this patient excluding time spent in the performance of separately billed services or time spent by another provider/QHP. Son is Stephane Pope, Admission and Anticipated Discharge Date Admission Date: January 31, 2025 Subjective Pt seen in room 456-2. Follow up acute hypoxic resp failure. Feels improved today. Denies f/c/s, chest pain, sob at rest, n/v. She is upset a new medication was started without talking to her eye Review of Systems Review of Systems: All systems reviewed & are unremarkable except as noted in HPI & below Physical Exam Physical Exam: Gen: WD/WN, F, sitting up in bedside chair, NAD, A&O x3 HEENT: Normocephalic, atraumatic, conjunctivae moist, sclerae anicteric, mucous membranes moist. Lung:exp wheezing throughout, otherwise CTAB Heart: Regular rate, regular rhythm with freq ectopy, no murmurs, rubs, or gallops Abdomen: Soft, NT, ND +BS x 4 Extremities: No edema Skin: Warm, no rash, negative turgor. Results & Data Results & Data Vital Signs (Past 12 Hours) Vital Signs Temp Pulse Pulse Resp BP Pulse Ox O2 Del Method 02/02/25 11:15 36.6 C 70 19 90/51 L 96 Room Air 02/02/25 08:45 36.5 C 65 19 99/62 L 96 Nasal Cannula 02/02/25 07:44 74 18 100 Nasal Cannula 02/02/25 07:09 74 02/02/25 02:40 36.5 C 69 17 106/48 L 96 Nasal Cannula O2 Flow Rate 02/02/25 11:15 02/02/25 08:45 3 02/02/25 07:44 3 02/02/25 07:09 02/02/25 02:40 2 Laboratory Results I have independently reviewed and interpreted patient's cbc, bmp Medications Administered Current Inpatient Medications Acetaminophen (Acetaminophen 325 Mg Tab) 650 mg PO Q4H PRN PRN Reason: Pain or Fever Stop: 03/02/25 11:54 Last Admin: 02/01/25 15:28 Dose: 650 mg Albuterol (Albut/Ipratrop 3mg/0.5mg Neb 3 Ml Vial) 3 ml NEB QIDR PRN; Protocol PRN Reason: Shortness Of Breath Or Wheezing Stop: 03/02/25 11:54 Last Admin: 02/01/25 22:12 Dose: 3 ml Albuterol (Albut/Ipratrop 3mg/0.5mg Neb 3 Ml Vial) 3 ml NEB TIDR LATASHA; Protocol Stop: 03/03/25 12:59 Last Admin: 02/02/25 07:42 Dose: 3 ml Aspirin (Aspirin 81 Mg Ectab) 81 mg PO DAILY [facility] Stop: 03/02/25 11:54 Last Admin: 02/02/25 09:21 Dose: 81 mg Atorvastatin Calcium (Atorvastatin 40 Mg Tab) 40 mg PO QAM [facility] Stop: 03/02/25 11:54 Last Admin: 02/02/25 09:21 Dose: 40 mg Clopidogrel Bisulfate (Clopidogrel Bisulfate 75 Mg Tab) 75 mg PO QAM [facility] Stop: 03/02/25 11:54 Last Admin: 02/02/25 09:21 Dose: 75 mg Dorzolamide/Timolol (Dorzolamide/Timolol 22.3/6.8mg/Ml 10 Ml Btl) 1 drops OPR BID [facility] Stop: 03/02/25 20:59 Last Admin: 02/02/25 09:20 Dose: 1 drops Ezetimibe (Ezetimibe 10 Mg Tab) 10 mg PO QAM [facility] Stop: 03/03/25 08:59 Last Admin: 02/02/25 09:21 Dose: 10 mg Enoxaparin Sodium (Enoxaparin Inj 40 Mg/0.4 Ml Syr) 40 mg SQ HS LATASHA Stop: 03/02/25 20:59 Last Admin: 02/01/25 21:53 Dose: Not Given Famotidine (Famotidine 20 Mg Tab) 20 mg PO DAILY PRN PRN Reason: Heartburn Stop: 03/02/25 11:54 Last Admin: 02/02/25 09:19 Dose: 20 mg Lorazepam (Lorazepam 0.5 Mg Tab) 0.25 mg PO Q6 PRN PRN Reason: Anxiety Stop: 03/02/25 17:59 Last Admin: 02/02/25 09:56 Dose: 0.25 mg Melatonin (Melatonin 3 Mg Tab) 6 mg PO HS PRN PRN Reason: Sleep Stop: 03/02/25 20:59 Last Admin: 01/31/25 20:08 Dose: 6 mg Midodrine (Midodrine Hcl 2.5 Mg Tab) 2.5 mg PO BID@0800,1400 [facility] Stop: 03/04/25 10:49 Last Admin: 02/02/25 11:18 Dose: 2.5 mg Miscellaneous (Remove Nicoderm Patch) 1 each N/A DAILY@0859 [facility] Stop: 03/03/25 08:58 Last Admin: 02/02/25 09:19 Dose: Not Given Nicotine (Nicotine 21 Mg/24 Hr Tdsy) 1 patch TD DAILY [facility] Stop: 03/03/25 23:14 Last Admin: 02/02/25 10:12 Dose: Not Given Ondansetron HCl (Ondansetron Inj 2 Mg/Ml 2 Ml Vial) 4 mg IV Q6H PRN PRN Reason: Nausea Stop: 03/02/25 11:54 Oxycodone HCl (Oxycodone Hcl Ir 5 Mg Tab (Immediate Release)) 5 mg PO Q8H PRN PRN Reason: Severe Pain (Scale 7, 8, 9,10) Stop: 02/14/25 11:54 Last Admin: 01/31/25 23:02 Dose: 5 mg Polyethylene Glycol (Polyethylene (Miralax) 17 Gm Pack) 17 gm PO DAILY PRN PRN Reason: Constipation Stop: 03/02/25 11:54 Last Admin: 02/01/25 09:55 Dose: 17 gm Prednisone (Prednisone 20 Mg Tab) 40 mg PO DAILY [facility] Stop: 02/08/25 08:59 Vitamin D (Cholecalciferol 25 Mcg (1000 Units) Tab) 25 mcg PO DAILY [facility] Stop: 03/03/25 08:59 Last Admin: 02/02/25 09:21 Dose: 25 mcg (2) Pulmonary edema Chronicity: acute Qualified Code(s): J81.0 - Acute pulmonary edema
--- NOTE | 2025-02-02 13:34 | Cardiology Progress Note ---
Date of Service February 02, 2025 Assessment & Plan (1) Acute on chronic heart failure with preserved ejection fraction (HFpEF): (2) Bilateral pleural effusion: (3) Acute hypoxic respiratory failure: (4) Ocular ischemic syndrome: (5) CAD (coronary artery disease): (6) Carotid artery stenosis: (7) PVD (peripheral vascular disease): (8) COPD exacerbation: Plan 01/31/25: Patient admitted with worsening SOB/hypoxia, consistent with acute on chronic HFpEF with b/l pleural effusion on chest xray. Chest CTA negative for PE given recent admission/surgery. Started on IV furosemide 20 mg IV BID. Daily weight standing scale (it appears patient may be up about 5 lbs above [facility] weight according to other measurements recently) Monitor I+O's Keep potassium 4-5. Keep magnesium > 2 Daily renal function and electrolytes She has been borderline hypotensive since her carotid vascular surgery treated with aggresome IV fluids on multiple occasions - this is likely contributory cause of her volume overload Update echo (results pending) Metoprolol on hold due to hypotension. After discussion with hospitalist, apparently there is concern with patient's worsening ocular ischemic disease and that metoprolol may be worsening her symptoms. Home dose was metoprolol succinate 25 mg daily. Monitor on telemetry. no history of Afib, but she does have a history of frequent PVC's and may ultimately need metoprolol 12.5 mg daily history of remote CAD s/p CABG Minimally elevated troponin in the 40's. No symptoms to suggest acute ACS. Continue ASA, statin. She is also on Plavix due to severe PVD BB on hold. Echo pending Patient reports headache currently -requesting Tylenol. -son is concerned with recent surgery and new severe headache. This was one of the symptoms vascular wanted them to monitor for given severe vascular disease and reperfusion symptoms. Message sent to hospitalist - ordering head CT 02/01: Improved respiratory status this morning after multiple doses of IV lasix yesterday and Nebulizer treatments. repeat chest xray ordered with improved pulm edema and no pleural effusions. Appears euvolemic on exam today. Will not order additional diuresis given dizziness and hypotension Continue nebs. Ongoing wheeze noted, likely some component of COPD exacerbation as well. Wean supplemental O2 as needed. Metoprolol on hold due to hypotension and concerns for BB contributing to ocular ischemia. Persistent dizziness reported. May or may not be related to hypotension we could consider trial of midodrine if needed Patient/son requesting neurology evaluation due to these "drop attacks" she has been having and concern for seizure like activity. Continue all other outpatient meds including ASA, plavix, statin, zetia. 02/02/25: Appears euvolemic after several doses of IV Lasix. no indication for ongoing diuretic therapy Cough/ongoing wheeze noted on exam. Treating for COPD exacerbation. Discussed with hospitalist. They discussed use of steroid with her helicopter pilot and all in agreement for short 5 day course of prednisone would be beneficial. Due to hypotension and dizziness, continue to hold metoprolol. Neurology work up/evaluation felt her dizziness and these "attacks" were likely due to hypotension/orthostasis. negative Brain MRI. EEG is pending Recommend initiation of low dose midodrine 2.5 mg BID and increase to TID as tolerated/needed. Recommend doses in AM And early afternoon rather than bedtime. this was discussed with hospitalist as well. No further cardiac testing warranted at this time. Continue all other outpatient medications including ASA, plavix, statin, zetia Will sign off. Please contact personal secretary cardiology provider with additional questions or concerns. Case discussed with Dr. Cisneros I spent a total of 30 minutes on the date of service in preparation, delivery, and documentation of the care provided to this patient, excluding any time spent in the performance of separately billed services. Trupti Sage PA-C Department of Cardiology, [facility] This chart was completed in part utilizing Speech Voice Recognition Software. Grammatical errors, random word insertions, pronoun errors, and incomplete sentences are an occasional consequence of this system due to software l imitations, ambient noise, and hardware issues. Any formal questions or concerns about the content, text, or information contained within the body of this dictation should be directly addressed to the provider for clarification. Admission and Anticipated Discharge Date Admission Date: January 31, 2025 Supervising Physician Co-Signing Physician Notes Attending attestation: Case reviewed with the advanced practitioner. I have personally performed a history and physical examination on the patient. I have reviewed the advanced practitioner's documentation on the date of service referenced in note, and I agree with, and take responsibility for the plan of care. I spent a total of 20 minutes coordinating, documenting, and providing care for this patient excluding time spent in the performance of separately billed services or time spent by another provider. Servando Cisneros, Subjective Patient resting in chair. Not as tearful today. No recurrent dizzy spells overnight. No chest pain. ongoing cough/wheezing reported. No chest pain Review of Systems Review of Systems: All systems reviewed & are unremarkable except as noted in HPI & below Physical Exam Constitutional: WD/WN, vitals as above no acute distress Respiratory: able to speak in complete sentences; no cough and not tachypneic Auscultation: + diminished lung sounds and + wheezes; no crackles Cardiovascular: Rate/Rhythm: regular rate and regular rhythm Heart Sounds: no murmur Vessels: no JVD Extremities: no edema Neurologic: PERRL, EOMI, accommodation nl, no face palsy, no dysarthria Results & Data Vital Signs (Past 12 Hours) Vital Signs Temp Pulse Pulse Resp BP Pulse Ox O2 Del Method 02/02/25 13:05 76 16 97 Room Air 02/02/25 11:15 36.6 C 70 19 90/51 L 96 Room Air 02/02/25 08:45 36.5 C 65 19 99/62 L 96 Nasal Cannula 02/02/25 07:44 74 18 100 Nasal Cannula 02/02/25 07:09 74 02/02/25 02:40 36.5 C 69 17 106/48 L 96 Nasal Cannula O2 Flow Rate 02/02/25 13:05 02/02/25 11:15 02/02/25 08:45 3 02/02/25 07:44 3 02/02/25 07:09 02/02/25 02:40 2 Laboratory Results Cardiac Enzymes 02/01/25 Range/Units 15:05 Troponin I High Sens 22.4 H D (0-14) pg/ml CBC 02/02/25 Range/Units 07:24 WBC 9.78 (4.8-10.8) K/ul RBC 3.35 L (4.20-5.40) M/uL Hgb 9.9 L (12.0-16.0) g/dl Hct 30.3 L (37.0-47.0) % Plt Count 328 (130-400) K/uL Neut # (Auto) 6.83 H (1.40-6.50) K/uL Lymph # (Auto) 1.99 (1.20-3.40) K/uL [place] # (Auto) 0.73 H (0.11-0.59) K/uL Eos # (Auto) 0.14 (0.00-0.50) K/uL Baso # (Auto) 0.05 (0.00-0.20) K/uL Comprehensive Metabolic Panel 02/02/25 Range/Units 07:24 Sodium 140 (136-145) mmol/L Potassium 4.7 D (3.5-5.1) mmol/L Chloride 107 (98-107) mmol/L Carbon Dioxide 30 (21-32) mmol/L BUN 12 (6-23) mg/dl Creatinine 0.87 (0.6-1.2) mg/dl Glucose 93 (70-99(Fasting)) mg/dl Calcium 8.7 (8.6-10.3) mg/dl Intake and Output 02/01/25 02/02/25 02/02/25 22:59 06:59 14:59 Intake Total 1100 / 1590 490 / 1590 Output Total 200 / 1050 850 / 1050 Balance 900 / 540 -360 / 540 Intake: IV 500 / 500 Sodium Chloride 0.9% 500 ml @ 500 / 500 999 mls/hr IV .Q31M ONE Rx#: [id number] Oral 600 / 1090 490 / 1090 Output: Urine Amount (Catheter) 200 / 1050 850 / 1050 External 200 / 1050 850 / 1050 Other: # Unmeasured Voids 1 1 Weight 61.7 kg Weight Measurement [facility] Findings Telemetry reviewed: NSR in the 80's; Occ PVC's Chest xray reviewed from yesterday: FINDINGS: Stable CABG. Stable mild cardiomegaly without pulmonary vascular congestion. Stable hyperexpanded lungs. There is mild stranding opacity in the lung bases, improved. No other consolidation or pleural effusion. No pneumothorax. IMPRESSION: Mild stranding in the lung bases, improved. Brain MRI report reviewed from 02/01; IMPRESSION: No evidence of acute intracranial pathology.
[2025-02-02] MEDS: predniSONE 20 MG TAB PO STA (15:16)
[2025-02-02] MEDS: valACYclovir HCL 500 MG TABLET PO SCH (16:24)
[2025-02-03] MEDS: predniSONE 20 MG TAB PO SCH (08:20)
--- NOTE | 2025-02-03 10:12 | Hospitalist Progress Note ---
<Statement entered by Suraj Jeronimo, DO - 02/03/25 15:18> I have seen and examined the patient and have discussed the case with the advance practice provider. I have reviewed the advanced practitioner's documentation, and I agree with, and take responsibility for that plan of care. Patient is feeling well. When I entered the room she was up and ambulating in the room. She denies any lightheadedness dizziness or presyncopal symptoms. States she had none of the symptoms when she got out of bed this morning. Son is at bedside. His questions were answered and discussed. Patient is concerned about the steroids, feels as though it is affecting her vision. Reassured her that we discussed all medications with Dr. Harrison. Believe that she probably only needs a short course of steroids. Lungs: Significantly improved airflow, decreased wheezes May be able to even do a shorter course of steroids potentially last dose tomorrow if her lung sounds continue to improve. Reviewed blood pressures this afternoon, still trending on the lower side will increase midodrine dosing [facility] Discussed plan of care as outlined below. I spent a total of 22 minutes coordinating, documenting, and providing care for this patient excluding time spent by another provider/QHP. 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 Of significance, patient recently underwent left carotid endarterectomy with left CCA intrathoracic stent placement performed by Dr. Rees at [facility] on 01/20/25 in the setting of severe left CCA disease. She was then seen in the [facility] ED on 01/27/25 due to dizzy spells and hypotension. Chest CTA at that time revealed cardiomegaly with pulmonary edema and small bilateral pleural effusions (right larger than left), occluded proximal left subclavian artery with reconstitution at the level of the left vertebral artery, moderate to severe stenosis at the origin of the brachiocephalic trunk, extensive plaque within the thoracic aorta and extensive coronary artery calcification. These findings were discussed with an on-call vascular surgeon, Dr. Sol, of [facility]. It was recommended that the patient follow-up with her PCP as well as establish with outpatient neurology due to her dizziness and she was subsequently discharged home. -Successfully weaned off of BiPAP and now saturating well on RA s/p IV diuresis (73.4kg on admission >> now 61.5kg). -Continue strict I&Os, daily weights. TTE reviewed: LVEF = 55%, subtle small sized anteroseptal wall motion abnormality, mild MR and grade II DD. -Cardiology signed off on 02/02. Did reach out to Trupti Sage PA-C via TT this morning regarding bradycardia: suspect false reading ISO of PVCs. -Hold off on further diuresis for now; appears euvolemic on exam this morning. -Vasculitis/autoimmune workup pending. Repeat CXR on 02/01 with significant improvement. Suspect troponin elevation due to demand ischemia (CHF/hypoxia) - remained flat. -HR stable in the 70s-90s on telemetry. Suspect dizzy spells/events were presyncopal 2/2 orthostasis per discussion with neurology. -Continue to hold metoprolol ISO hypotension; BP improving on BID midodrine dosing. Now denies any lightheadedness or dizziness with standing/ambulation. -Brain MRI on 02/01 was negative for acute pathology. EEG completed but result is still pending. (5) CAD (coronary artery disease): Plan: S/p CABG x 3 (OM, RCA and MORGAN) in April 2015 - surgery done in [place]. Continue statin, Plavix, ASA and Zetia. Recently was on metoprolol but this was stopped 2/2 hypotension. (6) Carotid artery disease: (7) PAD (peripheral artery disease): Plan: Follows with Dr. Rees of [facility]. S/p left carotid endarterectomy with left CCA intrathoracic stent placement performed by Dr. Rees at [facility] on 01/20/25 in the setting of severe left CCA disease. 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 (8) COPD exacerbation: (9) Tobacco use disorder: Plan: Diffuse wheezing noted on exam on 02/02. Suspect underlying COPD exacerbation s/p IV diuresis. Now on prednisone 40mg daily x 5 days with EOT on 02/06. -Wheezing improved on exam this morning. -Feels her breathing is much improved. Saturating well on RA at the time of our conversation. 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 Harrison, . Patient's son, Stephane, requests that all of her medication changes be coordinated and discussed with Dr. Harrison PRIOR to initiation due to her extensive underlying ophthalmic disease. Doing well with nebulizer treatments while inpatient; would benefit on discharge for nebulizer supplies/treatments to be arranged. Continue nicotine patch application. She is now down from 2ppd to 5-10 cigarettes/day. Continue to encourage smoking cessation. (10) Ocular ischemic syndrome: (11) Neovascular glaucoma of both eyes, severe stage: Plan: Follows with Dr. Harrison of [facility]. Continue eye gtts; receives ocular injections as an outpatient. Last seen in clinic on 01/06/25: OD and OS 20/80 with evidence of progressive worsening. Guarded visual prognosis per chart review. -Very poor vision in both eyes, notably right worse than left. (12) Generalized anxiety disorder: Plan: Has suffered from anxiety all of her life but has recently worsened ISO her 's recent passing in October. Son reports she was on Ativan 1mg BID for many years; PCP now weaning down and she is currently on 0.25mg BID. Patient feels this really isn't helping and she has trialed 3 prior SSRIS without any benefit/intolerance. Appreciate psych's assistance. Ativan dose changed to 0.25 Q6H PRN. Patient not interested in pursuing BuSpar. Would benefit from outpatient therapy services if this can be arranged. (13) Anemia: Plan: Recent outpatient workup revealed normal iron stores. Hgb stable around 9-11. No episodes of bleeding such as epistaxis or melena. Continue to monitor H/H while inpatient. DVT Prophylaxis: SQ Lovenox Code Status: DNR/DNI PCP: Kia Goetz MD Disposition: Spoke with CM - plan for discharge to [facility] tomorrow for rehabilitation services if a bed is available. Patient's son, Stephane Pope, would like routine updates. Spoke with him at bedside this morning. He can be reached at the following phone number if needed: [phone]. He is a professor of acoustic engineering at [employer]. Patient seen in collaboration with Dr. Jeronimo. Please see addendum. I spent a total of 50 minutes coordinating, documenting, and providing care for this patient excluding time spent in the performance of separately billed services or time spent by another provider/QHP. This included personally reviewing all current laboratories and imaging studies, medical reconciliation, outpatient chart review and discussion with specialists. This chart was completed in part utilizing Speech Voice Recognition Software. Grammatical errors, random word insertions, pronoun errors, and incomplete sentences are an occasional consequence of this system due to software limitations, ambient noise, and hardware issues. Any formal questions or concerns about the content, text, or information contained within the body of this dictation should be directly addressed to the provider for clarification. Admission and Anticipated Discharge Date Admission Date: January 31, 2025 Subjective Patient seen and examined in room W456-2. Her son, Stephane, is present at bedside. She is sitting up in a chair at bedside. Feels her breathing has significantly improved. Denies any chest pain, SOB or N/V. No further reported dizziness at rest or with standing/ambulation. Awaiting placement to [facility] for further rehabilitation services. Discussed her medication changes. Review of Systems Review of Systems: At least ten systems reviewed and negative, except as noted in the subjective section. Physical Exam Physical Exam: General: Elderly, F. NAD. Sitting up in chair at bedside. Son present in the room. A&Ox3, very pleasant. HEENT: Normocephalic, atraumatic. Conjunctivae normal. External ear and nose normal. Moist mucous membranes. Respiratory: Normal respiratory effort. Now on RA. Wheezing improved. No rales or rhonchi. Cardiovascular: Regular rate and rhythm with intermittent ectopy/PVCs. No BLE edema. No murmur. Abdomen/GI: Normal bowel sounds, soft, nondistended, nontender to palpation in all quadrants. Extremities/Musculoskeletal: No cyanosis or clubbing, extremities motor strength intact, moves all extremities. Neurologic: No overt focal deficits, CN's II-XI not formally tested but appear grossly intact bilaterally. Results & Data Results & Data Vital Signs (Past 12 Hours) Vital Signs Temp Pulse Pulse Resp BP Pulse Ox O2 Del Method 02/03/25 08:43 83 106/60 02/03/25 07:52 36.9 C 43 L 19 98/52 L 98 Room Air 02/03/25 07:49 76 02/03/25 07:25 92 H 16 98 Room Air 02/03/25 03:06 36.5 C 50 L 18 107/56 L 99 Room Air 02/02/25 22:22 36.6 C 74 18 115/59 L 96 Room Air (1) Pulmonary edema Chronicity: acute Qualified Code(s): J81.0 - Acute pulmonary edema (5) CAD (coronary artery disease) Coronary Disease-Associated Artery/Lesion type: unspecified vessel or lesion type [place] vs. transplanted heart: [place] heart Associated angina: unspecified whether angina present Qualified Code(s): I25.10 - Atherosclerotic heart disease of [place] coronary artery without angina pectoris (6) Carotid artery disease Carotid artery disease type: unspecified Laterality: bilateral Qualified Code(s): I77.9 - Disorder of arteries and arterioles, unspecified (13) Anemia Anemia type: unspecified type Qualified Code(s): D64.9 - Anemia, unspecified
--- NOTE | 2025-02-03 13:35 | Electrocardiogram Report ---
Test Reason : Blood Pressure : */* mmHG Vent. Rate : 78 BPM Atrial Rate : 78 BPM P-R Int : 146 ms QRS Dur : 84 ms QT Int : 384 ms P-R-T Axes : 66 -4 110 degrees QTcB Int : 437 ms Sinus rhythm with frequent Premature ventricular complexes T wave abnormality, consider lateral ischemia Abnormal ECG When compared with ECG of 01-Feb-2025 08:08, Sinus rhythm has replaced Atrial flutter QRS duration has decreased Confirmed by Ryland Hernandes ([id number]) on 02/03/2025 1:35:08 PM Referred By: REFERRED SELF Confirmed By: Ryland Hernandes
[2025-02-03] MEDS: MIDODRINE HCL 2.5 MG TAB PO ONE (18:24)
[2025-02-04 06:27] LABS: Hematocrit (blood only) 29.8 % (37.0-47.0); Hemoglobin 9.7 g/dl (12.0-16.0); Mean Corpuscular Hemoglobin 29.1 pg (25.0-34.0); Mean Corpuscular Hgb Conc 32.6 g/dL (32.0-36.0); Mean Corpuscular Volume 89.5 fL (80.0-100.0); Mean Platelet Volume 9.4 fL (9.4-12.4); Platelet Count 340 K/uL (130-400); RDW Standard Deviation 48.4 fL (36.4-46.3); Red Blood Count 3.33 M/uL (4.20-5.40); White Blood Count 8.68 K/ul (4.8-10.8)
[2025-02-04 06:41] LABS: BUN Creatinine Ratio 19.1 (10-20); Calcium 8.6 mg/dl (8.6-10.3); Creatinine Clr Calc Pharmacy 43.4 ml/min; Magnesium 2.2 mg/dl (1.7-2.4); Potassium 4.3 mmol/L (3.5-5.1)
[2025-02-04 07:16] VITALS: RESP 18
[2025-02-04] MEDS ORDERED: MIDODRINE HCL 2.5 MG TAB PO SCH (08:00)
[2025-02-04] MEDS: MIDODRINE HCL 2.5 MG TAB PO SCH (08:57)
[2025-02-04 10:56] VITALS: BP 93/45; TEMP 97.9; O2SAT 98
--- NOTE | 2025-02-04 12:48 | Discharge Summary ---
<Statement entered by Suraj Jeronimo, - 02/04/25 15:48> I have seen and examined the patient and have discussed the case with the advance practice provider. I have reviewed the advanced practitioner's documentation, and I agree with, and take responsibility for that plan of care. Patient sitting up in chair. Denied any lightheadedness or dizziness with getting out of bed this morning. Was complaining of her hands tremoring. I explained to her that this is most likely due to the prednisone. Explained to her that she would not need to continue it after discharge today. Lungs: Significantly improved airflow no wheezes Son at bedside reviewed plans for discharge later today. Discussed discharge plans outlined below I spent a total of 16 minutes coordinating, documenting, and providing care for this patient excluding time spent by another provider/QHP. 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 Of significance, patient recently underwent left carotid endarterectomy with left CCA intrathoracic stent placement performed by Dr. Rees at [facility] on 01/20/25 in the setting of severe left CCA disease. She was then seen in the [facility] ED on 01/27/25 due to dizzy spells and hypotension. Chest CTA at that time revealed cardiomegaly with pulmonary edema and small bilateral pleural effusions (right larger than left), occluded proximal left subclavian artery with reconstitution at the level of the left vertebral artery, moderate to severe stenosis at the origin of the brachiocephalic trunk, extensive plaque within the thoracic aorta and extensive coronary artery calcification. These findings were discussed with an on-call vascular surgeon, Dr. Sol, of [facility]. It was recommended that the patient follow-up with her PCP as well as establish with outpatient neurology due to her dizziness and she was subsequently discharged home. Initially needed BiPAP support and aggressive IV diuresis which was ultimately complicated by significant orthostasis requiring the initiation of midodrine. Titrated up to midodrine 5mg TID at time of discharge. Vasculitis/autoimmune workup still pending. Successfully weaned off of all supplemental O2 and continues to saturate well on RA with repeat CXR imaging on 02/01 showing resolution of her cardiopulmonary edema s/p diuresis. Home metoprolol succinate stopped on discharge given severe orthostasis. Patient was experiencing frequent episodes of dizziness prior to admission which were likely due to her profound orthostasis. Did check brain MRI on 02/01 which was negative for any acute pathologies. EEG completed as well but still pending. Prior dizzy spells have since resolved s/p initiation of midodrine with improving BP response. (5) CAD (coronary artery disease): S/p CABG x 3 (OM, RCA and MORGAN) in April 2015 - surgery done in [place]. Continue statin, Plavix, ASA and Zetia. (6) Carotid artery disease: (7) PAD (peripheral artery disease): Follows with Dr. Rees of [facility]. S/p left carotid endarterectomy with left CCA intrathoracic stent placement performed by Dr. Rees at [facility] on 01/20/25 in the setting of severe left CCA disease. 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 (8) COPD exacerbation: (9) Tobacco use disorder: Diffuse wheezing noted on exam on 02/02. Suspect underlying COPD exacerbation s/p IV diuresis. Completed short oral prednisone course with significant improvement in her wheezing. Would benefit from LABA/LAMA inhaler, such as Anoro, but this would need to be discussed with the patient's primary rotoformer backtender, first Domenica; patient is going to mention this to her PCP at her follow-up appointment. Would also benefit from getting nebulizer supplies/treatments at home - discussed with the patient plus her son at bedside and they plan on arranging this through her PCP. Continue nicotine patch application PRN. She is now down from 2ppd to 5-10 cigarettes/day. Smoking cessation highly encouraged. (10) Ocular ischemic syndrome: (11) Neovascular glaucoma of both eyes, severe stage: Follows with Dr. Harrison of [facility]. Continue eye gtts; receives ocular injections as an outpatient. Last seen in clinic on 01/06/25: OD and OS 20/80 with evidence of progressive worsening. Guarded visual prognosis per chart review. (12) Generalized anxiety disorder: Has suffered from anxiety all of her life but has recently worsened ISO her 's recent passing in October. Son reports she was on Ativan 1mg BID for many years; PCP now weaning down and she is currently on 0.25mg BID. Patient feels this really isn't helping and she has trialed 3 prior SSRIS without any benefit/intolerance. Appreciate psych's assistance. Ativan dose changed to 0.25 Q6H PRN. Patient not interested in pursuing BuSpar. Would benefit from outpatient therapy services if this can be arranged through her PCP. (13) Anemia: Recent outpatient workup revealed normal iron stores. Hgb remained stable around 9-11. PCP: Kia Goetz MD Disposition: Patient is being discharged in stable condition to [facility] for rehabilitation services. Patient seen in collaboration with Dr. Jeronimo. Please see addendum. I spent a total of 60 minutes coordinating, documenting, and providing care for this patient excluding time spent in the performance of separately billed ser vices or time spent by another provider/QHP. This included personally reviewing all current laboratories and imaging studies, medical reconciliation, outpatient chart review and discussion with specialists. This chart was completed in part utilizing Speech Voice Recognition Software. Grammatical errors, random word insertions, pronoun errors, and incomplete sentences are an occasional consequence of this system due to software limitations, ambient noise, and hardware issues. Any formal questions or concerns about the content, text, or information contained within the body of this dictation should be directly addressed to the provider for clarification. Notes For Next Care Provider Will need outpatient PCP follow-up within the next 1-2 weeks. Medication Changes From Visit Midodrine 5mg TID @ 06:00, 15:00 and 18:00 with close BP monitoring lying/sitting/standing. Admission HPI Per Admitting Provider This is a 79-year-old female who has a significant past medical history of CAD status post CABG x 3 in 2014, carotid artery stenosis status post right carotid endarterectomy in 2016 and recent left carotid endarterectomy with left carotid artery stent placement on 01/20/2025, PAD/PVD, history of hypertension, hyperlipidemia, COPD, ocular ischemia, neovascular glaucoma and generalized anxiety disorder who presents to ED secondary to acute onset shortness of breath prior to arrival. Her son is at bedside also helps with the history along with external chart review. Of significance patient underwent a left carotid endarterectomy and left carotid stent placement in [place] by Dr. Rees on 01/20/2025. She tolerated the procedure well. Patient was seen in ED on 01/27 secondary to dizzy spells and low blood pressure. Patient had documented systolic blood pressures in the 80s to 90s while in ED. She underwent a CTA chest and neck CTA which revealed cardiomegaly, pulmonary edema, small bilateral pleural effusions, patent left common carotid artery stent, occluded proximal left subclavian artery with reconstitution at the level of the left vertebral artery, moderate to severe stenosis of the origin of the brachiocephalic trunk and extensive coronary artery calcification. These imaging findings were discussed with on-call surgeon at [facility]. At that time it was recommended patient follow-up with PCP as well as establish with outpatient neurology due to dizziness. 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 She has been pushing fluids to help her low blood pressure. She feels overall her dizziness has improved. Her reasoning for presenting to hospital today is due to waking up at 6 AM feeling like she could not catch her breath. She states that similar symptoms occurred yesterday which she was able to sit up and eventually her symptoms resolved and she was able to go about her day. She did still have dyspnea on exertion yesterday, felt it was manageable. She woke up at 6 AM this morning she called her son stating she was calling 911. She was able to walk downstairs with her for an exam and stand at the front door waiting for EMS. She states her symptoms greatly improved after being placed on BiPAP. She reports never having anything like this before. She denies any chest pain, diaphoresis, palpitations, nausea, lightheadedness, dizziness, recent respiratory symptoms, cough, change in her bowel or urinary h abits. Patient reports significant anxiety. Son states she has been on benzodiazepines for better part of 20 years. She previously was on 1 mg twice daily currently her PCP has weaned her down to 0.25 mg twice daily. The patient states that this is doing nothing as she is crying during her history. She reports a significant recent events with her passing away in October and her most recent surgeries and hospitalizations. She states her PCP has previously tried 3 SSRIs with intolerance/no benefit. In regards to her, "dizziness," She states that she is feeling like she is, "losing her neuromuscular tone." When she presented to the ED on 01/27 she had several episodes where she states, "it starts in my toes and goes up my legs and my legs just give out and I fall." "My whole body then starts shaking." Son reports her falling several times during that day, but hasn't occurred since. They are requesting a neurology consult. in ED patient was initially hypoxic requiring BiPAP support. She received numerous therapies including 40 mg of IV Lasix, 60 mg of IV Solu-Medrol, 2000 mg IV ceftriaxone and a total of 0.5 mg of IV lorazepam. Discussed with nursing who reports 1Lurine output thus far. She has since been weaned off BiPAP and is currently on 3 L of oxygen. In ED her CBC and CMP was unremarkable. Her troponin was undetectable. Her ABG revealed a compensated pH of 7.45. Her respiratory bio fire was negative. She underwent chest CTA which revealed cardiopulmonary edema with bilateral pleural effusions. Angiogram was otherwise unchanged from previous. Admission Exam Per Admitting Provider Constitutional: WD/WN, elderly, F, crying/anxious during visit, vitals as above, NAD, sitting up in bed, pleasant, conversing easily Head: Normocephalic, Atraumatic Eyes: PERRL, conjunctivae normal, anicteric sclerae ENMT: external ear and nose normal, oropharynx normal Neck: trachea midline, no thyromegaly normal visual inspection Respiratory: normal respiratory effort, lungs clear to auscultation, diminished bs at bases, no wheeze, rales, rhonchi. Normal insp/exp effort, no accessory muscle use Cardiovascular: RRR with occassional ectopy, no murmur, no edema Vessels: no JVD or carotid bruit Chest: normal inspection of chest Abdomen: normal bowel sounds, soft, nontender, no hepatosplenomegaly Musculoskeletal: no cyanosis or clubbing, extremities motor strength 5/5 Skin: no rashes, warm and dry normal turgor Neurologic: PERRL, EOMI, accommodation nl, no face palsy, no dysarthria CN's II-XI intact bilaterally and moves all extremities Psychiatric: A+Ox3, euthymic affect Lymphatic: no cervical or axillary lymphadenopathy : deferred Discharge Exam General: Elderly, F. NAD. Standing up in her room near the windows. Son present at bedside. A&Ox3, very pleasant. HEENT: Normocephalic, atraumatic. Conjunctivae normal. External ear and nose normal. Moist mucous membranes. Respiratory: Normal respiratory effort. Now on RA. Wheezing improved. No rales or rhonchi. Cardiovascular: Regular rate and rhythm with intermittent ectopy/PVCs. No BLE edema. No murmur. Abdomen/GI: Normal bowel sounds, soft, nondistended, nontender to palpation in all quadrants. Extremities/Musculoskeletal: No cyanosis or clubbing, extremities motor strength intact, moves all extremities. Neurologic: No overt focal deficits, CN's II-XI not formally tested but appear grossly intact bilaterally. Updated Medication List Medication Instructions Recorded Confirmed Type albuterol sulfate 90 mcg/actuation 2 puff inhalation Q4H PRN Wheezing 01/27/25 01/31/25 History aerosol inhaler atorvastatin 40 mg tablet 40 mg PO QAM 01/27/25 01/31/25 History clopidogrel 75 mg tablet 75 mg PO QAM 01/27/25 01/31/25 History dorzolamide 22.3 mg-timolol 6.8 1 drp OPR BID 01/27/25 01/31/25 History mg/mL eye drops ezetimibe 10 mg tablet 10 mg PO QAM 01/27/25 01/31/25 History lorazepam 0.5 mg tablet 0.25 mg PO BID 01/27/25 01/31/25 History metoprolol succinate 25 mg 25 mg PO QAM 01/27/25 01/31/25 History tablet,extended release 24 hr oxycodone 5 mg tablet 5 mg PO Q8H PRN Pain 01/27/25 01/31/25 History acetaminophen 500 mg tablet 1,000 mg PO TID PRN Pain 01/31/25 01/31/25 History aspirin 81 mg tablet,delayed 81 mg PO DAILY 01/31/25 01/31/25 History release cetirizine 10 mg capsule (Zyrtec) 10 mg PO DAILY PRN Allergy Symptoms 01/31/25 01/31/25 History cholecalciferol (vitamin D3) 25 25 mcg PO DAILY 01/31/25 01/31/25 History mcg (1,000 unit) capsule (Vitamin D3) famotidine 10 mg tablet 10 mg PO BID PRN heart burn 01/31/25 01/31/25 History nicotine 21 mg/24 hr daily 1 patch transdermal DAILY 01/31/25 01/31/25 History transdermal patch midodrine 5 mg tablet 5 mg PO TID #90 tabs 02/04/25 Rx Hospital Stay Data Consultations 01/31/25 07:29 ED Decision to Admit Stat 01/31/25 10:27 Consult Cardiology Routine 01/31/25 10:28 Consult Neurology Routine Consult Psychiatry Routine Diagnostic Imagining Performed 01/31/25 07:37 CT angio chest PE protocol Stat 01/31/25 14:02 CT head/brain wo con Routine 02/01/25 16:42 MR brain wo/w con Routine Discharge Instructions Given to Patient (Per Discharging Provider) Ms. Pope was admitted to [facility] as a result of acute hypoxic respiratory failure due to an acute heart failure exacerbation. She developed significant issues with low blood pressure readings (hypotension) after receiving IV diuresis requiring the initiation of a medication called midodrine. Midodrine is a medication used to help raise someone's blood pressure when it is too low, especially when standing up. Ms. Pope will undergo routine blood pressure monitoring at [facility]. If her blood pressure readings were to continue running low, she may then require an increase in the dose of her midodrine to help increase her blood pressure in order to prevent dizziness, lightheadedness or even falls. It has been a pleasure taking care of Ms. Pope. If there are any questions regarding her recent hospitalization, please contact [facility] and request a [facility] @ [phone]. Total Time Total Time Spent Total Time Spent (In Minutes): 60
[2025-02-04 16:01] VITALS: PULSE 84
[2025-02-06 00:52] LABS: ANCA Screen Negative (Negative); Anti Cardiolipin Ab IgG <2.0 GPL-U/mL; Anti Cardiolipin Ab IgM 5.7 MPL-U/mL; Anti Nuclear Antibody Screen POSITIVE (NEGATIVE); Anti-Centromere Ab <1.0 NEG AI (<1.0 NEG); Anti-SS-A <1.0 NEG AI (<1.0 NEG); Anti-SS-B <1.0 NEG AI (<1.0 NEG); Chromatin Antibody <1.0 NEG AI (<1.0 NEG); Complement C3 161 mg/dL (83-193); DNA ds Crithidia NEGATIVE (NEGATIVE); Microsomal Ab <1 IU/mL (<9); Myeloperoxidase Ab <1.0 AI (<1.0); Proteinase-3 AB <1.0 AI (<1.0); RNP Antibody <1.0 NEG AI (<1.0 NEG); Sm Antibody <1.0 NEG AI (<1.0 NEG)
[2025-02-07 09:44] LABS: ANA Pattern 2 Nuclear, Speckled; ANA Titer 1:40 titer; ANA Titer 2 1:40 titer
== END 2025-02-04 17:17 | DRG 291 ==
LOC: ED 06:26 → 4W 09:45 → SUATTDRO 09:45 → 4W 10:59